=== PATIENT | female | born 1935 | race Caucasian/White ===

== ENCOUNTER → 2016-04-10 | Outpatient (CLI) | payer MEDICARE ==
[~2016-04-10] MED LIST: ALN70T; AMLO10TA2 PO; AMLO10TA82; AMLO5TAB2 PO; APIX5TAB PO; ASP81CT; ASPI-983 PO; BENZ100C23 PO; DOCU100C37 PO; LOSA50TA36 PO; MECL-133; METO-270 PO; METO-274 PO; METO25TA; MNTL10T; MONT10TA24 PO; PANT40TA3 PO; RT-ALBUINH IH; SULF-222 PO; VLS80C PO
--- NOTE | 2016-04-10 13:13 | Diagnostic Imaging Report ---
PROCEDURE: US Thyroid. TECHNIQUE: Multiple real-time grayscale images were obtained of the thyroid in various projections. INDICATION: Thyroid nodule follow-up. FINDINGS: The right lobe of the thyroid measures 4.0 x 1.5 x 1.5 cm. Left lobe of the thyroid measures 5.0 x 2.2 x 2 cm. The right lobe of the thyroid has a heterogeneous echogenicity but no masses or nodules. The left lobe of the thyroid contains multiple nodules. The largest is in the medial portion that measures 10 x 8 x 10 mm. This is avascular centrally but does have some peripheral vascularity. There are no microcalcifications. This is not significantly changed from the comparison exam of 08/21/2009. IMPRESSION: Multinodular goiter manifested in the left lobe of the thyroid. There are no individually suspicious nodules. No significant changes compared to 08/21/2009. Dictated by: Dictated on workstation # [id number]
== END ==
LOC: RAD 10:08
PROVIDERS: ATTEND Internal Medicine
DX: E04.2 Nontoxic multinodular goiter (principal)
CPT/HCPCS: 76536

== ENCOUNTER → 2016-06-25 | Outpatient (CLI) | payer MEDICARE ==
--- NOTE | 2016-06-25 13:47 | Diagnostic Imaging Report ---
PROCEDURE: CT head and CT cervical spine without contrast. TECHNIQUE: Multiple contiguous axial images were obtained through the brain and cervical spine without the use of intravenous contrast. Sagittal and coronal reformations through the cervical spine were then performed. INDICATION: Fall. FINDINGS: CT HEAD: There is no intracranial hemorrhage, edema or mass effect. The brain parenchyma and franklin-white matter differentiation is preserved. There is no hydrocephalus. No extra-axial fluid collection. The calvarium, the visualized portions of the paranasal sinuses and orbits appear grossly unremarkable. CT CERVICAL SPINE: There is minimal anterior translation of C7 over T1. The vertebral body heights are preserved. The disc heights demonstrate moderate loss at C5/6 and significant height loss at C6/7 levels. There is also moderate height loss at C7/T1. No widening of the predental space. There is satisfactory alignment of the lateral masses of C1 and C2. There is hypodense linear artifact appearing to be from dental fillings projecting over the C2 vertebral body. No evidence of fracture is seen. There are small posterior osteophytes at C3/4, C5/6 and C6/7 levels. Alignment of the facet joints appears satisfactory. IMPRESSION: CT HEAD: No acute process. CT CERVICAL SPINE: Prominent degenerative changes. Mild anterior translation of C7 over T1 is also likely degenerative. No fracture seen. Dictated by: Dictated on workstation # [id number]
== END ==
LOC: RAD 12:05
PROVIDERS: ATTEND Nurse Practitioner
DX: S09.90XA Unspecified injury of head, initial encounter (principal); M47.812 Spondylosis without myelopathy or radiculopathy, cervical region; W19.XXXA Unspecified fall, initial encounter; Y92.009 Unspecified place in unspecified non-institutional (private) residence as the place of occurrence of the external cause; Y99.8 Other external cause status
CPT/HCPCS: 70450; 72125

== ENCOUNTER 2016-10-23 18:50 | Inpatient (IN) | payer MEDICARE ==
[~2016-10-23] VITALS: Ht 157.5 cm; Wt 77.7 kg
[~2016-10-23 18:50] MED LIST changes: -ACET-2267 PO; -APIX2.5T PO; -BENZ-36 PO; +BENZ100C23 PO; -CALC-78 PO; -CHOL10007 PO; -CYAN10006 PO; -FURO40TA4 PO; +METO-270 PO; +METO-274 PO; -METO-387 PO; -METO-395 PO; -MICO90PO TOP; -MULT-35 PO; -NAPR220T66 PO; -POTA10TA6 PO; -POTA99TA21 PO
[2016-10-23 19:31] LABS: BASOPHILS % (AUTO) 1 % (0-10); EOSINOPHILS # (AUTO) 0.3 10^3/uL (0.0-0.3); EOSINOPHILS % (AUTO) 4 % (0-10); LYMPHOCYTES % (AUTO) 25 % (12-44); MEAN CORPUSCULAR HEMOGLOBIN 25 PG (25-34); MEAN CORPUSCULAR HGB CONC 29 G/DL (32-36); MEAN CORPUSCULAR VOLUME 86 FL (80-99); MEAN PLATELET VOLUME 9.8 FL (7.4-10.4); MONOCYTES # (AUTO) 0.8 X 10^3 (0.0-1.0); MONOCYTES % (AUTO) 10 % (0-12); NEUTROPHILS # (AUTO) 4.9 X 10^3 (1.8-7.8); NEUTROPHILS % (AUTO) 61 % (42-75); PLATELET COUNT 388 10^3/uL (130-400); RED BLOOD COUNT 2.48 10^6/uL (4.35-5.85); RED CELL DISTRIBUTION WIDTH 14.8 % (10.0-14.5)
[2016-10-23 19:45] LABS: INR 2.3 (0.8-1.4); PROTHROMBIN TIME PATIENT 25.5 SEC (12.2-14.7)
--- NOTE | 2016-10-23 20:20 | Diagnostic Imaging Report ---
INDICATION: Dyspnea and weakness 2009 hrs. FINDINGS: Heart size and pulmonary vascularity are within normal limits, and the lungs are clear, bilaterally. There is advanced degenerative change in the right shoulder joint. IMPRESSION: Unremarkable chest. Dictated by: Dictated on workstation # [id number]
[2016-10-23 20:21] VITALS: BP 154/61
--- NOTE | 2016-10-23 20:28 | ED General ---
General Chief Complaint: General Problems/Pain Stated Complaint: HEART PROBLEMS Nursing Triage Note: patient reports progressive SOA and weakness, patient reports being evaluated by emergency technician yesterday and having a holter monitor and labs done, patient reports was called today and told to present to the emergency department. patient denies n/v/d. patient was also told to quit taking blood thinner Nursing Sepsis Screen: No Definite Risk Source of Information: Patient, Old Records Exam Limitations: No Limitations History of Present Illness Time Seen by Provider: 19:08 Initial Comments This pleasant 81-year-old woman presents to the emergency room at the direction of Dr. Gallegos's office because of a hemoglobin of 6. Patient has been feeling very fatigued and mildly short of air for about 2 weeks. She is on Eliquis but she has been unaware of any bleeding. She is anticoagulated because of atrial fibrillation. She was seen in Dr. Gallegos's office on Wednesday. Labs were drawn today and a Holter monitor applied. Allergies and Home Medications Allergies Coded Allergies: Penicillins (Unverified Allergy, Mild, 10/26/08) iodine (Unverified Allergy, Mild, 10/26/08) sulfamethoxazole (Verified Allergy, Unknown, 12/05/14) trimethoprim (Verified Allergy, Unknown, 12/05/14) Home Medications Albuterol Sulfate 8.5 Gm Hfa.aer.ad, 2 PUFF IH Q6H PRN for SHORTNESS OF BREATH, (Reported) Amlodipine Besylate 5 Mg Tablet, 5 MG PO DAILY for 30 Days Prescribed by: RENA CULVER on 12/11/141537 Apixaban 5 Mg Tablet, 5 MG PO BID for 30 Days, Ref 3 Prescribed by: RENA CULVER on 12/11/141537 Aspirin 81 Mg Tablet., 81 MG PO DAILY, (Reported) Docusate Sodium 100 Mg Capsule, 100 MG PO BID, #10 Prescribed by: RENA CULVER on 12/11/14 1538 Losartan Potassium 50 Mg Tablet, 50 MG PO DAILY, (Reported) Metoprolol Succinate 100 Mg Tab.er.24h, 100 MG PO BID for 30 Days, Ref 3 Prescribed by: RENA CULVER on 12/11/141537 Montelukast Sodium 10 Mg Tablet, 10 MG PO HS, (Reported) Pantoprazole Sodium 40 Mg Tablet., 40 MG PO BIDAC for 30 Days Prescribed by: RENA CULVER on 12/11/14 1538 Constitutional: see HPI, weakness EENTM: no symptoms reported Respiratory: see HPI Cardiovascular: see HPI Gastrointestinal: no symptoms reported Genitourinary: no symptoms reported : No Musculoskeletal: no symptoms reported Skin: no symptoms reported Psychiatric/Neurological: No Symptoms Reported Hematologic/Lymphatic: See HPI Immunological/Allergic: no symptoms reported Past Tgwwjpn-Feiulx-Bepbkf Hx Patient Social History Alcohol Use: Denies Use Recreational Drug Use: No Smoking Status: Never a Smoker Recent Foreign Travel: No Contact w/Someone Who Travel: No Recent Infectious Disease Expo: No Immunizations Up To Date Date of Pneumonia Vaccine: Dec 06, 2012 Surgeries HX Surgeries: Yes Surgeries: Eye Surgery, Gallbladder, Orthopedic Respiratory Hx Respiratory Disorders: Yes Respiratory Disorders: Asthma Cardiovascular Hx Cardiac Disorders: Yes Cardiac Disorders: Atrial Fibrillation, Hypertension Neurological Hx Neurological Disorders: No Reproductive System Hx Reproductive Disorders: No Sexually Transmitted Disease: No Genitourinary Hx Genitourinary Disorders: No Gastrointestinal Hx Gastrointestinal Disorders: Yes (diverticulitis) Gastrointestinal Disorders: Diverticulosis Musculoskeletal Hx Musculoskeletal Disorders: Yes (arthritis/lymphedema both legs) Musculoskeletal Disorders: Arthritis Endocrine Hx Endocrine Disorders: No HEENT HX ENT Disorders: Yes HEENT Disorders: Cataract Cancer Hx Cancer: No Psychosocial Hx Psychiatric Problems: No Integumentary HX Skin/Integumentary Disorder: No Blood Transfusions Hx Blood Disorders: No Physical Exam Vital Signs Vital Sign - Last 12Hours 10/23/16 10/23/16 19:03 20:21 Temp 98.2 Pulse 69 Resp 18 B/P (MAP) 166/78 Pulse Ox 96 O2 Delivery Room Air Capillary Refill : Less Than 3 Seconds General Appearance: No Apparent Distress, WD/WN HEENT: PERRL/EOMI, Normal ENT Inspection Respiratory: Lungs Clear, Normal Breath Sounds, No Accessory Muscle Use, No Respiratory Distress Cardiovascular: Regular Rate, Rhythm, No Edema Gastrointestinal: Normal Bowel Sounds, Soft, Tenderness (left lower quadrant) Rectal: Normal Exam, Normal Rectal Tone, Heme Negative Stool Extremity: Normal Inspection Neurologic/Psychiatric: Alert, Oriented x3, No Motor/Sensory Deficits, Normal Mood/Affect, wave guide assembler II-XII Norm as Tested Skin: Normal Color, Warm/Dry Progress/Results/Core Measures Results/Orders Lab Results Laboratory Tests Test 10/23/16 19:20 10/23/16 20:35 10/24/16 05:03 Range/Units White Blood Count 8.0 8.3 4.3-11.0 10^3/uL Red Blood Count 2.48 L 2.99 L 4.35-5.85 10^6/uL Hemoglobin 6.1 *L 8.1 #L 11.5-16.0 G/DL Hematocrit 21 L 26 L 35-52 % Mean Corpuscular Volume 86 85 80-99 FL Mean Corpuscular Hemoglobin 25 27 25-34 PG Mean Corpuscular Hemoglobin Concent 29 L 32 32-36 G/DL Red Cell Distribution Width 14.8 H 14.3 10.0-14.5 % Platelet Count 388 293 130-400 10^3/uL Mean Platelet Volume 9.8 9.9 7.4-10.4 FL Neutrophils (%) (Auto) 61 65 42-75 % Lymphocytes (%) (Auto) 25 20 12-44 % Monocytes (%) (Auto) 10 12 0-12 % Eosinophils (%) (Auto) 4 3 0-10 % Basophils (%) (Auto) 1 0 0-10 % Neutrophils # (Auto) 4.9 5.4 1.8-7.8 X 10^3 Lymphocytes # (Auto) 2.0 1.7 1.0-4.0 X 10^3 Monocytes # (Auto) 0.8 1.0 0.0-1.0 X 10^3 Eosinophils # (Auto) 0.3 0.2 0.0-0.3 10^3/uL Basophils # (Auto) 0.0 0.0 0.0-0.1 10^3/uL Prothrombin Time 25.5 H 12.2-14.7 SEC INR Comment 2.3 H 0.8-1.4 Activated Partial Thromboplast Time 30 24-35 SEC Troponin I < 0.30 <0.30 NG/ML B-Type Natriuretic Peptide 654.2 H <100.0 PG/ML Urine Color YELLOW Urine Clarity CLEAR Urine pH 7 5-9 Urine Specific [place] 1.010 L 1.016-1.022 Urine Protein NEGATIVE NEGATIVE Urine Glucose (UA) NEGATIVE NEGATIVE Urine Ketones NEGATIVE NEGATIVE Urine Nitrite NEGATIVE NEGATIVE Urine Bilirubin NEGATIVE NEGATIVE Urine Urobilinogen NORMAL NORMAL MG/DL Urine Leukocyte Esterase 3+ H NEGATIVE Urine RBC (Auto) NEGATIVE NEGATIVE Urine RBC NONE /HPF Urine WBC 2-5 /HPF Urine Squamous Epithelial Cells NONE /HPF Urine Crystals NONE /LPF Urine Bacteria NONE /HPF Urine Casts NONE /LPF Urine Mucus NEGATIVE /LPF Urine Culture Indicated NO My Orders Orders - KELLY LEVINE MD BNP (10/23/16 19:11) Cbc With Automated Diff (10/23/16 19:11) Protime With Inr (10/23/16 19:11) Partial Thromboplastin Time (10/23/16 19:11) Troponin I (10/23/16 19:11) Ua Culture If Indicated (10/23/16 19:11) Saline Lock/Iv-Start (10/23/16 19:11) Ekg Tracing (10/23/16 19:11) Monitor-Rhythm Ecg Trace Only (10/23/16 19:11) Chest Pa/Lat (2 View) (10/23/16 19:11) Fecal Occult Bedside (10/23/16 19:11) Red Cells Leukocytes Reduced (10/23/16 19:15) Type And Screen (10/23/16 19:15) Ct Abdomen/Pelvis Wo (10/23/16 20:47) Ns Iv 500 Ml (Sodium Chloride 0.9%) (10/23/16 21:22) Medications Given in ED Current Medications Medications Dose Ordered Sig/Marleen Route Start Time Stop Time Status Last Admin Dose Admin Sodium Chloride 500 ml @ [facility]-MED ONCE .ROUTE 10/23/16 21:22 10/23/16 21:29 DC 10/23/16 21:42 0 MLS/HR Vital Signs/I&O Vital Sign - Last 12Hours 10/23/16 10/23/16 10/23/16 10/23/16 19:03 20:21 21:38 22:00 Temp 98.2 98.2 98.4 Pulse 69 64 62 61 Resp 18 22 10 12 B/P (MAP) 166/78 154/61 161/64 174/65 Pulse Ox 96 99 94 95 O2 Delivery Room Air Room Air 10/23/16 10/23/16 10/23/16 10/23/16 22:32 22:59 23:31 23:35 Temp 97.5 98.0 Pulse 63 63 64 Resp 24 17 18 B/P (MAP) 173/72 154/98 Pulse Ox 95 95 99 O2 Delivery Room Air 10/24/16 10/24/16 01:00 05:05 Temp 98.1 Pulse 77 69 Resp 20 B/P (MAP) 148/67 Pulse Ox 98 O2 Delivery Room Air Blood Pressure Mean: 92 Progress Note : Progress Note Labs were repeated. Transfusion was initiated with 2 units of packed red blood cells. Lasix was ordered to be given after the transfusions. 2 units of blood are being held on reserve. Patient did complain of left lower quadrant pain after initial evaluation. She was concerned that diverticulitis was returning. CT scan was performed without contrast due to iodine allergy. No acute abnormalities were found. Fecal Hemoccult was negative. ECG Initial ECG Impression Date: Oct 23, 2016 Initial ECG Impression Time: 19:29 Initial ECG Rate: 61 Initial ECG Rhythm: Normal Sinus Initial ECG Intervals: Normal Initial ECG Impression: Normal Comment Normal sinus rhythm with no ST elevation or depression. Left ventricular hypertrophy. No abnormal intervals. Diagnostic Imaging Diagonstic Imaging: Xray Plain Films/CT/US/NM/MRI: chest Comments Chest x-ray viewed by me and report reviewed. See report below: NAME: SRUTHI SYKES MED REC#: [id number] PT STATUS: REG ER : 1935 PHYSICIAN: EKLLY LEVINE MD ADMIT DATE: 10/23/16/ER Draft Date of Exam:10/23/16 CHEST PA/LAT (2 VIEW) INDICATION: Dyspnea and weakness 2009 hrs. FINDINGS: Heart size and pulmonary vascularity are within normal limits, and the lungs are clear, bilaterally. There is advanced degenerative change in the right shoulder joint. IMPRESSION: Unremarkable chest. Dictated on workstation # [id number] Dict: 10/23/162017 Trans: 10/23/[address] [place] [id number] Interpreted by: ELENI ALMANZA MD Departure Communication Time/Spoke to Admitting Phy: 20:[address] Mitchell Time/Spoke to Consulting Physi: 22:00 Communication/Consulting Dr. Gallegos Impression Impression: Primary Impression: Severe anemia Additional Impressions: Dyspnea Qualified Codes: R06.00 - Dyspnea, unspecified Fatigue Qualified Codes: R53.83 - Other fatigue Left lower quadrant pain Disposition: ADMITTED INPATIENT Condition: Improved Admissions Decision to Admit Reason: Admit from ER (General) Decision to Admit/Date: Oct 23, 2016 Time/Decision to Admit Time: 19:10 Departure-Patient Inst. Referrals: YORDAN RODRIGUEZ MD (PCP/Family) Primary Care Physician KELLY LEVINE MD Oct 23, 2016 20:28
[2016-10-23 20:57] LABS: BILIRUBIN,URINE NEGATIVE (NEGATIVE); KETONES,URINE NEGATIVE (NEGATIVE); LEUKOCYTE ESTERASE ,URINE 3+ (NEGATIVE); NITRITE,URINE NEGATIVE (NEGATIVE); PH,URINE 7 (5-9); PROTEIN,URINE NEGATIVE (NEGATIVE); UROBILINOGEN,URINE NORMAL (NORMAL)
[2016-10-23] MEDS ORDERED: NS IV 500 ML 500 ML ONE (21:22)
--- NOTE | 2016-10-23 21:35 | Diagnostic Imaging Report ---
PROCEDURE: CT abdomen and pelvis without contrast. TECHNIQUE: Multiple contiguous axial images were obtained through the abdomen and pelvis without the use of intravenous contrast. INDICATION: Severe anemia and weakness There is moderate hiatal hernia. Note is made of coronary artery calcification. Unenhanced images of the liver and spleen reveal no focal abnormality. Gallbladder surgically absent. There is no evidence of pancreatic or adrenal gland lesion. Dense calcification in the lower pole of the left kidney may be vascular in nature. There is no evidence of hydronephrosis or renal mass identified. There is also no evidence of ureteric stone or dilatation. Numerous diverticula are seen throughout the colon, however, there is no evidence of pericolonic edema or inflammation. Very small umbilical herniation of fat is noted. There is moderate lumbar spondylosis. IMPRESSION: No CT evidence of acute abdominal or pelvic abnormality. In particular, there is no evidence of unexpected fluid collection or hemorrhage. Dictated by: Dictated on workstation # [id number]
[2016-10-23 21:38] VITALS: BP 161/64
[2016-10-23 22:00] VITALS: BP 174/65
[2016-10-23 22:32] VITALS: BP 173/72
--- OUTSIDE RECORDS SUMMARY | 2016-10-23 22:33 | XMS REPORT ---
Author JOSELITO Gallegos [facility] eClinicalWorks Address Unknown Phone Unavailable Care Team Providers Care Vice President Of Product Marketing Name Role Phone JOSELITO WAKEFIELD CP Unavailable Allergies No Known Allergies Problems Problem Type Condition ICD-9 Code Onset Dates Condition Status Assessment Encounter for PPD test V74.1 Active Medications No Known Medications Procedures Procedure Coding System Code Date TB INTRADERMAL TEST CPT-4 18508 Nov 13, 2014 Results No Known Results Summary Purpose eClinicalWorks Submission
--- OUTSIDE RECORDS SUMMARY | 2016-10-23 22:33 | XMS REPORT ---
Author Author RAVI BROWER Organization e[employer] Address Unknown Phone Unavailable Care Team Providers Care Bicycle Designer Name Role Phone RAVI BROWER CP Unavailable Allergies, Adverse Reactions, Alerts Substance Reaction Event Type Penicillin V Potassium Info Not Available Drug Allergy Iodine Info Not Available Drug Allergy Problems Problem Type Condition ICD-9 Code Onset Dates Condition Status Assessment Physical exam V70.9 Active Medications Medication Code System Code Instructions Start Date End Date Status Dosage Singulair [facility] [address]-07 10 MG Orally Once a day 1 tablet in the evening Baby Aspirin ND 0 not defined Amlodipine Besylate [facility] [address]-45 10 MG Orally Once a day 1 tablet Diovan [facility] [address]-69 80 MG Orally Once a day 1 tablet Metoprolol-HCTZ ER [facility] [address]-67 25-12.5 MG Orally Once a day 1 tablet Meclizine HCl [facility] [address]-00 25 MG Orally PRN 1 tablet as needed Procedures Procedure Coding System Code Date Office Visit, New Pt., Level 2 CPT-4 64434 Nov 08, 2014 DRUG SCREEN NON TLC DEVICES CPT-4 63732 Nov 08, 2014 Vital Signs Date/Time: Nov 08, 2014 Temperature 98.6 F Weight 197.7 lbs Height 61 in BMI 37.35 Index Blood Pressure Diastolic 70 mmHg Blood Pressure Systolic 126 mmHg Cardiac Monitoring Heart Rate 86 bpm Results No Known Results Summary Purpose eClinicalWorks Submission
--- OUTSIDE RECORDS SUMMARY | 2016-10-23 22:33 | XMS REPORT ---
Author Author RAVI BROWER Organization e[employer] Address Unknown Phone Unavailable Care Team Providers Care Blue Crabber Name Role Phone RAVI BROWER CP Unavailable Allergies No Known Allergies Problems No Known Problems Medications No Known Medications Results No Known Results Summary Purpose eClinicalWorks Submission
[2016-10-23 22:59] VITALS: BP 154/98
[2016-10-23 23:35] VITALS: BP 169/68
[2016-10-23] MEDS ORDERED: FUROSEMIDE 40 MG/4 ML INJ (LASIX) IV PRN (23:45)
[2016-10-24 05:05] VITALS: BP 148/67
[2016-10-24 05:23] LABS: BASOPHILS % (AUTO) 0 % (0-10); EOSINOPHILS # (AUTO) 0.2 10^3/uL (0.0-0.3); EOSINOPHILS % (AUTO) 3 % (0-10); LYMPHOCYTES # (AUTO) 1.7 X 10^3 (1.0-4.0); LYMPHOCYTES % (AUTO) 20 % (12-44); MEAN CORPUSCULAR HEMOGLOBIN 27 PG (25-34); MEAN CORPUSCULAR HGB CONC 32 G/DL (32-36); MEAN CORPUSCULAR VOLUME 85 FL (80-99); MEAN PLATELET VOLUME 9.9 FL (7.4-10.4); MONOCYTES % (AUTO) 12 % (0-12); NEUTROPHILS # (AUTO) 5.4 X 10^3 (1.8-7.8); NEUTROPHILS % (AUTO) 65 % (42-75); PLATELET COUNT 293 10^3/uL (130-400); RED BLOOD COUNT 2.99 10^6/uL (4.35-5.85); RED CELL DISTRIBUTION WIDTH 14.3 % (10.0-14.5); WHITE BLOOD COUNT 8.3 10^3/uL (4.3-11.0)
[2016-10-24 05:33] LABS: INR 1.2 (0.8-1.4)
[2016-10-24 05:52] LABS: CALCIUM 8.6 MG/DL (8.5-10.1); CREATININE SERUM 1.1 MG/DL (0.60-1.30); POTASSIUM 3.9 MMOL/L (3.6-5.0)
[2016-10-24 08:00] VITALS: BP 134/65
[2016-10-24] MEDS ORDERED: meTOprolol SUCCINATE 100 MG (TOPROL XL) TAB PO SCH (09:00)
[2016-10-24] MEDS ORDERED: amLODIPine 5 MG (NORVASC) TAB PO SCH (09:00)
[2016-10-24] MEDS ORDERED: LOSARTAN 50 MG (COZAAR) TAB PO SCH (09:00)
--- NOTE | 2016-10-24 09:03 | History & Physical-Hospitalist ---
HPI History of Present Illness: HPI/Chief Complaint this is an 81-year-old white female who has noted she's been having more shortness of breath for the last 2 weeks. She had presented to Dr. Dsouza would set her up for further cardiac testing and blood work. It was found that her hemoglobin was 6 and she was brought to the emergency room for further evaluation. The patient denies having any black tarry stools or any recent evidence of blood loss. She had her blood work checked about [address] Max's office and set her hemoglobin was normal at that time. She did have an episode where she had bright red blood per rectum about 6 months ago but has not had any other symptoms since then. She has had a recent upper endoscopy and colonoscopy or at least within the last 5 years. She has a history of diverticulitis in the past but CT abdomen pelvis shows no evidence of inflammation or abnormality at this time. The patient has not been on any new medications nor has she noted any dark urine. After 2 units of blood overnight she is feeling much better. Source: patient Exam Limitations: no limitations Date Seen 10/24/16 Time Seen by Provider: 08:30 Attending Physician Brooklyn Mitchell MD PCP Eddy Max MD Referring Physician Date of Admission Oct 23, 2016 at 22:00 Home Medications & Allergies Home Medications Reviewed patient Home Medication Reconciliation Form Allergies Allergies Coded Allergies Penicillins (Unverified Allergy, Mild, 10/26/08) iodine (Unverified Allergy, Mild, 10/26/08) sulfamethoxazole (Verified Allergy, Unknown, 12/05/14) trimethoprim (Verified Allergy, Unknown, 12/05/14) Past Mtinkij-Nmlhiq-Cvweyh Hx Patient Social History Marrital Status: Employed/Student: employed Alcohol Use: Denies Use Recreational Drug Use: No Smoking Status: Never a Smoker Physical Abuse Screen: No Sexual Abuse: No Recent Foreign Travel: No Contact w/other who traveled: No Recent Hopitalizations: No Recent Infectious Disease Expo: No Immunizations Up To Date Date of Pneumonia Vaccine: Dec 06, 2012 Seasonal Allergies Seasonal Allergies: Yes Surgeries HX Surgeries: Yes Surgeries: Eye Surgery, Gallbladder, Orthopedic Respiratory Hx Respiratory Disorders: Yes Respiratory Disorders: Chronic Bronchitis Cardiovascular Hx Cardiovascular Disorders: Yes Cardiac Disorders: Atrial Fibrillation, Hypertension Neurological Hx Neurological Disorders: No Reproductive System : No Hx Reproductive Disorders: No Sexually Transmitted Disease: No HIV/AIDS: No Genitourinary Hx Genitourinary Disorders: No Gastrointestinal Hx Gastrointestinal Disorders: Yes (diverticulitis) Gastrointestinal Disorders: Diverticulosis Musculoskeletal Hx Musculoskeletal Disorders: Yes (arthritis/lymphedema both legs) Musculoskeletal Disorders: Arthritis Endocrine Hx Endocrine Disorders: No HEENT HX ENT Disorders: Yes HEENT Disorders: Cataract Loss of Vision: Denies Hearing Impairment: Denies Cancer Hx Cancer: No Psychosocial Hx Psychiatric Problems: No Integumentary HX Skin/Integumentary Disorder: No Blood Transfusions Hx Blood Disorders: No Adverse Reaction to a Blood Tr: No Family Medical History Family Hx: Cancer around heart 19 FATHER Cardiovascular disease 19 MOTHER Congenital heart disease 19 MOTHER Hypertension 19 MOTHER Review of Systems Constitutional: weakness EENTM: no symptoms reported Respiratory: dyspnea on exertion Cardiovascular: no symptoms reported Gastrointestinal: no symptoms reported Genitourinary: no symptoms reported Musculoskeletal: no symptoms reported Skin: no symptoms reported Psychiatric/Neurological: Weakness Physical Exam Physical Exam Vital Signs Vital Sign - Last 12Hours 10/23/16 10/23/16 19:03 20:21 Temp 98.2 Pulse 69 Resp 18 B/P (MAP) 166/78 Pulse Ox 96 O2 Delivery Room Air Capillary Refill : Less Than 3 SecondsLess Than 3 Seconds General Appearance: No Apparent Distress, Other (pale) HEENT: Pale Conjunctivae (R) Neck: Non Tender Respiratory: Lungs Clear, Normal Breath Sounds, No Accessory Muscle Use, No Respiratory Distress Cardiovascular: Systolic Murmur, Irregularly Irregular Gastrointestinal: Normal Bowel Sounds, Non Tender, Soft Rectal: Deferred, Other (Hemoccult negative per Dr. Diaz) Genital/Rectal: Heme Negative Stool Back: Normal Inspection, No Vertebral Tenderness Extremity: No Calf Tenderness, Slow Capillary Refill Neurologic/Psychiatric: Alert, Oriented x3, No Motor/Sensory Deficits, Normal Mood/Affect Results Results/Procedures Lab Laboratory Tests 10/23/16 19:20 10/24/16 05:03 Assessment/Plan Admission Diagnosis 1. Severe anemia differential includes loss of blood decreased production of blood or hemolysis of blood. We'll check reticulocyte count LDH and further anemia analyzer 2. chronic atrial fibrillation on Eliquis which we'll hold for now. 3. shortness of breath improved now with a hemoglobin of 8.1 We'll continue to monitor her hemoglobin for another 24 hours and evaluate for blood loss. Clinical Quality Measures DVT/VTE Risk/Contraindication: Risk Factor Score Per Nursin RFS Level Per Nursing on Admit: 4+=Very High Contraindications-Pharm: Other *list below* Other: severe anemia BROOKLYN MITCHELL MD Oct 24, 2016 09:03
[2016-10-24] MEDS: KCL 20 MEQ TAB (K-DUR) PO SCH (09:07)
--- NOTE | 2016-10-24 14:55 | Consultation-Cardiology ---
HPI-Cardiology Cardiology Consultation: Date of Consultation 10/24/16 Time Seen by Provider: 15:30 Date of Admission 10/23/16 Attending Physician Brooklyn Mitchell MD Admitting Physician Eddy Max MD Consulting Physician EMILY HILTON MD, MA, FACP, FACC, FSCAI, CCDS HPI: Chief Complaint: Fatigue and shortness of breath HPI: 81 yo lady seen at our office about a week ago for symptoms of 2-3 weeks of increasing fatigue and tiredness and shortness of breath. W/u indicated marked anemia of new onset. Sent to ER. [place] [facility] [place] Has received transfusions and feels improved. Denies cp or palp or syncope Review of Systems-Cardiology Review of Systems Constitutional: As described under HPI Eyes: No vision change Ears/Nose/Throat: No ear discharge, No nasal drainage, No recent hearing loss Respiratory: As described under HPI Cardiovascular: As described under HPI Gastrointestinal: No constipation, No diarrhea, No difficulty swallowing Genitourinary: No dysuria, No hematuria : No Musculoskeletal: back pain (chronic) Skin: No rash, No ulcerations Psychiatric/Neurological: No seizure, No focal weakness, No syncope Hematologic: No bleeding abnormalities [id number] Hx Patient Social History Marrital Status: Employed/Student: employed Alcohol Use: Denies Use Recreational Drug Use: No Smoking Status: Never a Smoker Recent Foreign Travel: No Recent Infectious Disease Expo: No Hospitalization with Isolation: Denies Physical Abuse Screen: No Sexual Abuse: No Immunizations Up To Date Date of Pneumonia Vaccine: Dec 06, 2012 Past Medical History PMH As described under Assessment. Family Medical History Family History: Cancer around heart 19 FATHER Cardiovascular disease 19 MOTHER Congenital heart disease 19 MOTHER Hypertension 19 MOTHER Allergies and Home Medications Allergies Coded Allergies: Penicillins (Unverified Allergy, Mild, 10/26/08) iodine (Unverified Allergy, Mild, 10/26/08) sulfamethoxazole (Verified Allergy, Unknown, 12/05/14) trimethoprim (Verified Allergy, Unknown, 12/05/14) Home Medications Albuterol Sulfate 8.5 Gm Hfa.aer.ad, 2 PUFF IH Q6H PRN for SHORTNESS OF BREATH, (Reported) Amlodipine Besylate 5 Mg Tablet, 5 MG PO DAILY for 30 Days Prescribed by: RENA CULVER on 12/11/141537 Apixaban 5 Mg Tablet, 5 MG PO BID for 30 Days, Ref 3 Prescribed by: RENA CULVER on 12/11/141537 Aspirin 81 Mg Tablet., 81 MG PO DAILY, (Reported) Docusate Sodium 100 Mg Capsule, 100 MG PO BID, #10 Prescribed by: RENA CULVER on 12/11/141537 Losartan Potassium 50 Mg Tablet, 50 MG PO DAILY, (Reported) Metoprolol Succinate 100 Mg Tab.er.24h, 100 MG PO BID for 30 Days, Ref 3 Prescribed by: RENA CULVER on 12/11/141537 Montelukast Sodium 10 Mg Tablet, 10 MG PO HS, (Reported) Pantoprazole Sodium 40 Mg Tablet., 40 MG PO BIDAC for 30 Days Prescribed by: RENA CULVER on 12/11/141537 Physical Exam-Cardiology Physical Exam Vital Signs/I&O Vital Sign - Last 12Hours 10/24/16 10/24/16 10/24/16 10/24/16 05:05 08:00 09:00 15:37 Temp 98.1 97.8 98.2 Pulse 69 75 61 Resp 20 20 20 B/P (MAP) 148/67 134/65 119/66 Pulse Ox 98 98 99 O2 Delivery Room Air Room Air Room Air Room Air Intake and Output 10/25/16 00:00 Intake Total 1090 ml Output Total 1400 ml Balance -310 ml Capillary Refill : Less Than 3 SecondsLess Than 3 Seconds Data Review Labs Laboratory Tests 10/23/16 19:20: White Blood Count 8.0, Red Blood Count 2.48L, Hemoglobin 6.1*L, Hematocrit 21L, Mean Corpuscular Volume 86, Mean Corpuscular Hemoglobin 25, Mean Corpuscular Hemoglobin Concent 29L, Red Cell Distribution Width 14.8H, Platelet Count 388, Mean Platelet Volume 9.8, Neutrophils (%) (Auto) 61, Lymphocytes (%) (Auto) 25, Monocytes (%) (Auto) 10, Eosinophils (%) (Auto) 4, Basophils (%) (Auto) 1, Neutrophils # (Auto) 4.9, Lymphocytes # (Auto) 2.0, Monocytes # (Auto) 0.8, Eosinophils # (Auto) 0.3, Basophils # (Auto) 0.0, Prothrombin Time 25.5H, INR Comment 2.3H, Activated Partial Thromboplast Time 30, Troponin I < 0.30, B-Type Natriuretic Peptide 654.2H 10/23/16 20:35: Urine Color YELLOW, Urine Clarity CLEAR, Urine pH 7, Urine Specific [place] 1.010L, Urine Protein NEGATIVE, Urine Glucose (UA) NEGATIVE, Urine Ketones NEGATIVE, Urine Nitrite NEGATIVE, Urine Bilirubin NEGATIVE, Urine Urobilinogen NORMAL, Urine Leukocyte Esterase 3+H, Urine RBC (Auto) NEGATIVE, Urine RBC NONE , Urine WBC 2-5, Urine Squamous Epithelial Cells NONE, Urine Crystals NONE, Urine Bacteria NONE, Urine Casts NONE, Urine Mucus NEGATIVE, Urine Culture Indicated NO 10/24/16 05:03: White Blood Count 8.3, Red Blood Count 2.99L, Hemoglobin 8.1#L, Hematocrit 26L, Mean Corpuscular Volume 85, Mean Corpuscular Hemoglobin 27, Mean Corpuscular Hemoglobin Concent 32, Red Cell Distribution Width 14.3, Platelet Count 293, Mean Platelet Volume 9.9, Neutrophils (%) (Auto) 65, Lymphocytes (%) (Auto) 20, Monocytes (%) (Auto) 12, Eosinophils (%) (Auto) 3, Basophils (%) (Auto) 0, Neutrophils # (Auto) 5.4, Lymphocytes # (Auto) 1.7, Monocytes # (Auto) 1.0, Eosinophils # (Auto) 0.2, Basophils # (Auto) 0.0, Prothrombin Time 15.0H, INR Comment 1.2, Sodium Level 139, Potassium Level 3.9, Chloride Level 106, Carbon Dioxide Level 24, Anion Gap 9, Blood Urea Nitrogen 23H, Creatinine 1.10, Estimat Glomerular Filtration Rate 47, BUN/Creatinine Ratio 21, Glucose Level 102, Calcium Level 8.6, Lactate Dehydrogenase 195 A/P-Cardiology Assessment/Admission Diagnosis Profound anemia of undetermined etiology leading to new onset of fatique and loss of stamina and exertional shortness of breath PAF documented during hosp of early Dec 2014 Chronic apixaban stroke prophylaxis, currently being held because anemia is suspected to be due to GI blood loss Elevated BMI of approx 32 No evidence of ischemia or infarction on MPI of 12/11/14; LVEF was 74% Echo of 12/07/14 showed LVEF 55%, mod LAE, mild TR, PASP 35 mmHg Anaphylaxis to Bactrim and ac renal failure in early Dec 2014, managed by Dr Max Cough, managed by Dr Max H/o hypertension Discussion and Recomendations * We recommend a w/u to identify the source of bleeding * Hold anticoag/antiplatelets until the source of bleeding identified and treated * I spoke with her and answered questions Clinical Quality Measures DVT/VTE Risk/Contraindication: Risk Factor Score Per Nursin RFS Level Per Nursing on Admit: 4+=Very High Contraindications-Pharm: Other *list below* Other: severe anemia EMILY HILTON MD FACP FAC CCDS Oct 24, 2016 14:55
[2016-10-24 15:37] VITALS: BP 119/66
[2016-10-24] MEDS: PANTOPRAZOLE 40 MG (PROTONIX) TAB PO SCH (16:23)
[2016-10-24 20:08] VITALS: BP 126/66
[2016-10-24] MEDS: meTOproloL SUCCINATE 50 MG (TOPROL XL) TAB PO SCH (21:04)
[2016-10-24] MEDS: MONTELUKAST 10 MG (SINGULAIR) TAB PO SCH (21:04)
[2016-10-25] VITALS (17 sets, daily range): BP systolic 112–154; BP diastolic 55–79
[2016-10-25 05:23] LABS: MEAN PLATELET VOLUME 9.7 FL (7.4-10.4); RED BLOOD COUNT 3.04 10^6/uL (4.35-5.85); RED CELL DISTRIBUTION WIDTH 14.7 % (10.0-14.5); WHITE BLOOD COUNT 8.4 10^3/uL (4.3-11.0)
[2016-10-25 05:24] LABS: BASOPHILS % (AUTO) 0 % (0-10); EOSINOPHILS # (AUTO) 0.4 10^3/uL (0.0-0.3); EOSINOPHILS % (AUTO) 4 % (0-10); LYMPHOCYTES % (AUTO) 23 % (12-44); MEAN CORPUSCULAR HEMOGLOBIN 26 PG (25-34); MEAN CORPUSCULAR HGB CONC 31 G/DL (32-36); MEAN CORPUSCULAR VOLUME 86 FL (80-99); MEAN PLATELET VOLUME 9.9 FL (7.4-10.4); MONOCYTES # (AUTO) 0.9 X 10^3 (0.0-1.0); MONOCYTES % (AUTO) 11 % (0-12); NEUTROPHILS # (AUTO) 5.4 X 10^3 (1.8-7.8); NEUTROPHILS % (AUTO) 62 % (42-75); PLATELET COUNT 313 10^3/uL (130-400); RED BLOOD COUNT 3.05 10^6/uL (4.35-5.85); RED CELL DISTRIBUTION WIDTH 14.7 % (10.0-14.5); RETICULOCYTE % 2.34 % (0.50-2.40); WHITE BLOOD COUNT 8.7 10^3/uL (4.3-11.0)
[2016-10-25 05:39] LABS: BAND NEUTROPHILS 0 %; BASOPHILS % (MANUAL) 0 %; EOSINOPHILS % (MANUAL) 3 %; LYMPHOCYTES % (MANUAL) 15 %; NEUTROPHILS % (MANUAL) 69 %
[2016-10-25 05:40] LABS: ANISOCYTOSIS MODERATE; HYPOCHROMASIA MARKED; MICROCYTOSIS SLIGHT; POIKILOCYTOSIS SLIGHT; POLYCHROMASIA SLIGHT; TARGET CELLS SLIGHT; TEAR DROP CELLS SLIGHT
[2016-10-25] MEDS ORDERED: amLODIPine 5 MG (NORVASC) TAB ONE (05:46)
[2016-10-25] MEDS: PANTOPRAZOLE 40 MG (PROTONIX) TAB PO SCH ×2 (06:02→17:42)
[2016-10-25 06:09] LABS: CALCIUM 8.4 MG/DL (8.5-10.1); CREATININE SERUM 0.93 MG/DL (0.60-1.30); POTASSIUM 4.4 MMOL/L (3.6-5.0)
[2016-10-25] MEDS ORDERED: amLODIPine 5 MG (NORVASC) TAB PO PRN (09:00)
[2016-10-25] MEDS: KCL 20 MEQ TAB (K-DUR) PO SCH (09:02)
[2016-10-25] MEDS: meTOproloL SUCCINATE 50 MG (TOPROL XL) TAB PO SCH ×2 (09:02→20:44)
--- NOTE | 2016-10-25 10:55 | Progress Note-Hospitalist ---
Subjective HPI/CC On Admission Date Seen by Provider: Oct 25, 2016 Time Seen by Provider: 10:15 this is an 81-year-old white female who has noted she's been having more shortness of breath for the last 2 weeks. She had presented to Dr. Dsouza would set her up for further cardiac testing and blood work. It was found that her hemoglobin was 6 and she was brought to the emergency room for further evaluation. The patient denies having any black tarry stools or any recent evidence of blood loss. She had her blood work checked about [address] Max's office and set her hemoglobin was normal at that time. She did have an episode where she had bright red blood per rectum about 6 months ago but has not had any other symptoms since then. She has had a recent upper endoscopy and colonoscopy or at least within the last 5 years. She has a history of diverticulitis in the past but CT abdomen pelvis shows no evidence of inflammation or abnormality at this time. The patient has not been on any new medications nor has she noted any dark urine. After 2 units of blood overnight she is feeling much better. Subjective/Events-last exam patient complains of a cough this morning. She continues to be dyspneic on exertion but it's improved from admission. Hemoglobin is down to 7.9. Stool is Hemoccult positive. Review of Systems Pulmonary: Dyspnea, Cough Objective Exam Vital Signs Vital Sign - Last 12Hours 10/23/16 10/23/16 19:03 20:21 Temp 98.2 Pulse 69 Resp 18 B/P (MAP) 166/78 Pulse Ox 96 O2 Delivery Room Air Capillary Refill : Less Than 3 SecondsLess Than 3 Seconds General Appearance: No Apparent Distress, WD/WN HEENT: Pale Conjunctivae (R) Neck: Supple Respiratory: Chest Non Tender, Lungs Clear, Normal Breath Sounds, No Accessory Muscle Use, No Respiratory Distress Cardiovascular: No Edema, Systolic Murmur, Irregularly Irregular Gastrointestinal: Normal Bowel Sounds, Non Tender, Soft Rectal: Deferred Extremity: Non Tender, No Calf Tenderness Neurologic/Psychiatric: Alert, Oriented x3, No Motor/Sensory Deficits, Normal Mood/Affect Skin: Pallor Results/Procedures Lab Laboratory Tests 10/25/16 04:45 Assessment/Plan Assessment and Plan Assess & Plan/Chief Complaint 1. Severe anemia-status post transfusion with 2 units of blood. Now with Hemoccult positive stools. Off Eliquis. No evidence of hemolysis and patient has a good reticulocyte count. B12 folic acid and iron studies pending. Will add Carafate to Protonix. We'll transfuse with 2 more units of packed cells and consider discharge planning for tomorrow and follow up as an outpatient. 2. chronic atrial fibrillation on Eliquis which we'll hold for now. 3. shortness of breath improved now with a hemoglobin of 8.1 4. cough-we'll add SHERYL Dutta MD Oct 25, 2016 10:55
[2016-10-25] MEDS ORDERED: NS IV 500 ML 500 ML ONE (11:42)
[2016-10-25] MEDS: SUCRALFATE 1 GM (CARAFATE) TAB PO SCH ×3 (11:45→20:44)
--- NOTE | 2016-10-25 12:39 | Progress Note-Cardiology ---
Cardiology SOAP Progress Note Subjective: Still notes gen weakness. Shortness of breath better. No cp or palp or syncope Objective: I&O/Vital Signs Vital Sign - Last 12Hours 10/25/16 10/25/16 10/25/16 10/25/16 01:00 04:00 07:00 08:00 Temp 98.6 Pulse 60 64 70 Resp 18 B/P (MAP) 150/67 Pulse Ox 94 O2 Delivery Room Air Room Air 10/25/16 10/25/16 10/25/16 10/25/16 08:00 09:00 12:04 12:19 Temp 98.9 98.9 98.9 98.9 Pulse 71 71 65 63 Resp 20 18 B/P (MAP) 124/69 124/69 120/70 123/71 Pulse Ox 97 97 96 97 O2 Delivery Room Air Room Air Room Air Room Air Weight (Pounds): 171 Weight (Ounces): 6.0 Weight (Calculated Kilograms): 77.427811 Constitutional: AAO x 3, well-developed, well-nourished Respiratory: No accessory muscle use, lungs clear to percussion, lungs clear to auscultation Cardiovascular: regular rate-rhythm, S1 and S2, systolic murmur (faint TEDDY at cardiac base) Gastrointestional: No tender, soft, No guarding, No rebound, audible bowel sounds Extremities: No clubbing, No cyanosis, No significant edema Neurologic/Psychiatric: grossly intact, power is 5/5 both on sides Skin: No rash on exposed areas, No ulcerations on exposed areas Results/Procedures: Labs Laboratory Tests 10/25/16 04:45: White Blood Count 8.4, Red Blood Count 3.04L, Hemoglobin 7.9L, Hematocrit 26L, Mean Corpuscular Volume 86, Mean Corpuscular Hemoglobin 26, Mean Corpuscular Hemoglobin Concent 30L, Red Cell Distribution Width 14.7H, Platelet Count 300, Mean Platelet Volume 9.7, Sodium Level 136, Potassium Level 4.4, Chloride Level 106, Carbon Dioxide Level 20L, Anion Gap 10, Blood Urea Nitrogen 18, Creatinine 0.93, Estimat Glomerular Filtration Rate 58, BUN/Creatinine Ratio 19, Glucose Level 94, Calcium Level 8.4L 10/25/16 07:40: Stool Occult Blood Immunoassay NEGATIVE 10/25/16 08:13: Stool Occult Blood Immunoassay POSITIVEH Laboratory Tests 10/23/16 19:20 10/24/16 04:45 10/24/16 05:03 10/25/16 04:45 A/P: Assessment: Profound anemia, likely due to GI bleed (OB +ve stools), leading to new onset of fatique and loss of stamina and exertional shortness of breath PAF documented during hosp of early Dec 2014 Chronic apixaban stroke prophylaxis, currently being held because anemia is suspected to be due to GI blood loss Elevated BMI of approx 32 No evidence of ischemia or infarction on MPI of 12/11/14; LVEF was 74% Echo of 12/07/14 showed LVEF 55%, mod LAE, mild TR, PASP 35 mmHg Anaphylaxis to Bactrim and ac renal failure in early Dec 2014 Chronic cough, managed by Dr Max H/o hypertension Plan: * Agree with further blood transfusion * Recommend w/u for GI bleed and treatment of source. Hold anticoag/ antiplatelets until then EMILY HILTON MD FACP FAC CCDS Oct 25, 2016 12:38
[2016-10-25] MEDS: BENZONATATE 100 MG (TESSALON) CAPSULE PO SCH ×2 (13:15→20:44)
[2016-10-25] MEDS ORDERED: FUROSEMIDE 40 MG/4 ML INJ (LASIX) IVP NR (14:00)
[2016-10-25] MEDS: MONTELUKAST 10 MG (SINGULAIR) TAB PO SCH (20:44)
[2016-10-26 03:40] VITALS: BP 160/71
[2016-10-26] MEDS: SUCRALFATE 1 GM (CARAFATE) TAB PO SCH ×3 (05:42→16:28)
[2016-10-26] MEDS: PANTOPRAZOLE 40 MG (PROTONIX) TAB PO SCH ×2 (05:42→16:28)
[2016-10-26 07:03] LABS: MEAN PLATELET VOLUME 10.2 FL (7.4-10.4); RED BLOOD COUNT 3.82 10^6/uL (4.35-5.85)
[2016-10-26 07:09] LABS: CALCIUM 8.8 MG/DL (8.5-10.1); CREATININE SERUM 0.91 MG/DL (0.60-1.30); POTASSIUM 4.7 MMOL/L (3.6-5.0)
[2016-10-26 07:26] VITALS: BP 168/72
[2016-10-26 08:22] LABS: FOLIC ACID 19.8 ng/mL (1.5-24.0)
--- NOTE | 2016-10-26 08:55 | Progress Note-Cardiology ---
Cardiology SOAP Progress Note Subjective: Sitting up on the side of the bed. States she feels better. No c/o dyspnea, palpitations, CP, syncope or near syncope. No c/o n/v/d. Objective: I&O/Vital Signs Vital Sign - Last 12Hours 10/26/16 10/26/16 10/26/16 10/26/16 03:40 07:26 07:43 08:03 Temp 97.6 98.4 Pulse 69 66 64 Resp 18 22 B/P (MAP) 160/71 168/72 Pulse Ox 97 96 O2 Delivery Room Air Room Air Room Air 10/26/16 11:43 Temp 98.7 Pulse 73 Resp 20 B/P (MAP) 145/64 Pulse Ox 93 O2 Delivery Room Air Intake and Output 10/27/16 00:00 Intake Total 700 ml Output Total 1600 ml Balance -900 ml Weight (Pounds): 171 Weight (Ounces): 6.0 Weight (Calculated Kilograms): 77.995037 Constitutional: AAO x 3, well-developed, well-nourished Respiratory: No accessory muscle use, lungs clear to percussion, lungs clear to auscultation Cardiovascular: regular rate-rhythm, S1 and S2, systolic murmur (faint TEDDY at cardiac base) Gastrointestional: No tender, soft, No guarding, No rebound, audible bowel sounds Extremities: No clubbing, No cyanosis, No significant edema Neurologic/Psychiatric: grossly intact, power is 5/5 both on sides Skin: No rash on exposed areas, No ulcerations on exposed areas Results/Procedures: Labs Laboratory Tests 10/26/16 06:09: White Blood Count 9.0, Red Blood Count 3.82L, Hemoglobin 10.7#L, Hematocrit 33L , Mean Corpuscular Volume 87, Mean Corpuscular Hemoglobin 28, Mean Corpuscular Hemoglobin Concent 32, Red Cell Distribution Width 15.0H, Platelet Count 275, Mean Platelet Volume 10.2, Sodium Level 135, Potassium Level 4.7, Chloride Level 105, Carbon Dioxide Level 23, Anion Gap 7, Blood Urea Nitrogen 16, Creatinine 0.91, Estimat Glomerular Filtration Rate 59, BUN/Creatinine Ratio 18 , Glucose Level 93, Calcium Level 8.8 A/P: Assessment: Profound anemia, likely due to GI bleed (OB +ve stools), leading to new onset of fatique and loss of stamina and exertional shortness of breath. Symptoms resolved after anabaptism of H&H to near normal PAF documented during hosp of early Dec 2014 (currently SR) Chronic apixaban stroke prophylaxis, currently being held because anemia is suspected to be due to GI blood loss Elevated BMI of approx 32 No evidence of ischemia or infarction on MPI of 12/11/14; LVEF was 74% Echo of 12/07/14 showed LVEF 55%, mod LAE, mild TR, PASP 35 mmHg Anaphylaxis to Bactrim and ac renal failure in early Dec 2014 Chronic cough, managed by Dr Max H/o hypertension Plan: * H/H has improved with the transfusion of 4 units PRBC * Recommend w/u for GI bleed and treatment of source. Hold anticoag/ antiplatelets until then * We have discussed the above recommendations with her in detail * BP is elevated - restart ARB Physician Assessment Physician Assessment Lungs: good bilat air entry Cor: reg Ext: no c/c/e A&R * As documented in our note above that I updated (italics) and as noted below * We have advised f/u work up for and treatment of source of bleed. NOAC can be resumed for stroke prophylaxis after this issue is fully addressed * I spoke with her and answered questions * Outpatient f/u advised ARIS TRINIDAD Oct 26, 2016 08:55 EMILY HILTON MD FACP FAC CCDS Oct 26, 2016 14:26
[2016-10-26] MEDS ORDERED: LOSARTAN 25 MG (COZAAR) TAB PO SCH (09:00)
[2016-10-26] MEDS: meTOproloL SUCCINATE 50 MG (TOPROL XL) TAB PO SCH (09:12)
[2016-10-26] MEDS: KCL 20 MEQ TAB (K-DUR) PO SCH (09:12)
[2016-10-26] MEDS: BENZONATATE 100 MG (TESSALON) CAPSULE PO SCH ×2 (09:12→13:38)
[2016-10-26] MEDS ORDERED: amLODIPine 5 MG (NORVASC) TAB PO SCH (09:30)
[2016-10-26] MEDS ORDERED: CYAN10006 PO (09:46)
[2016-10-26] MEDS ORDERED: ACET-2267 PO (09:46)
[2016-10-26] MEDS ORDERED: APIX5TAB PO (09:46)
[2016-10-26] MEDS ORDERED: CHOL10007 PO (09:46)
[2016-10-26] MEDS ORDERED: METO-274 PO (09:46)
[2016-10-26] MEDS ORDERED: POTA99TA21 PO (09:46)
[2016-10-26] MEDS ORDERED: CALC-78 PO (09:46)
[2016-10-26] MEDS ORDERED: NAPR220T66 PO (09:46)
[2016-10-26] MEDS ORDERED: MULT-35 PO (09:46)
[2016-10-26 11:43] VITALS: BP 145/64
--- NOTE | 2016-10-26 15:37 | Progress Note-Hospitalist ---
Standard Progress Note Progress Notes/Assess & Plan Date Seen 10/26/16 Time Seen by Provider: 15:31 Diagnosis 1. Severe anemia differential includes loss of blood decreased production of blood or hemolysis of blood. We'll check reticulocyte count LDH and further anemia analyzer 2. chronic atrial fibrillation on Eliquis which we'll hold for now. 3. shortness of breath improved now with a hemoglobin of 8.1 We'll continue to monitor her hemoglobin for another 24 hours and evaluate for blood loss. Assess & Plan/Chief Complaint The patient is an 81-year-old white female. She presented to the hospital emergency room with complaints of generalized weakness and shortness of breath. She was found to have a hemoglobin of 6. She has been transfused with 4 units of packed red blood cells. Today's hemoglobin was 10.7. She reports she has been feeling much better and has been walking in the halls. She denies having seen any red or black stools recently. She has chronic atrial fibrillation and takes Eliquis. She has not experienced any particular unusual bleeding bruising or bleeding from the gums when brushing teeth. Physical exam: She is alert and charming. Lungs are clear to auscultation. CV is irregular. Abdomen is soft without tenderness. Ankles show no pedal edema. Impression: Severe anemia etiology unclear. 2.chronic atrial fibrillation with oral anticoagulation. Discussion: The leading cause would be blood loss although one would have expected red or black stools. She has not had a colonoscopy since 2008. She is said to have diverticulosis. Given this I believe that it is time for a repeat colonoscopy. She was given a choice of endoscopy first and has chosen Dr. Fernandez. In the meantime she will be discharged and the scope will be planned as an outpatient. Dr. Max's office is faxing over a CBC from March 09. FOR Further information please see the discharge sequence Labs Laboratory Tests 10/25/16 04:45 10/26/16 06:09 JANICE MANCILLA MD Oct 26, 2016 15:37
[2016-10-26] MEDS ORDERED: AMLO5TAB2 PO (15:39)
--- NOTE | 2016-10-26 15:40 | Discharge Instructions ---
Discharge Instructions Discharge Medications New, Converted or Re-Newed RX: Transmitted to Pharmacy Patient Instructions Patient Instructions: Resume diet and activities. As noted on the medication list hold the Eliquis for now. Observe stools for red blood or black color. Expect a call from Dr. Fernandez's office tomorrow relative to making arrangements for colonoscopy Activity & Diet Discharge Diet: No Restrictions JANICE MANCILLA MD Oct 26, 2016 15:40
[2016-10-26 16:00] VITALS: BP 134/70
[2016-10-26 19:19] VITALS: BP 134/70
== END 2016-10-26 20:05 | disposition home or self-care (01) | DRG 812 ==
LOC: EDUNIT# 18:50 → ER 18:52 → 4TH 22:00
PROVIDERS: ADMIT Internal Medicine; ATTEND Internal Medicine
DX: D64.9 Anemia, unspecified (principal); I48.0 Paroxysmal atrial fibrillation; I10 Essential (primary) hypertension; K57.90 Diverticulosis of intestine, part unspecified, without perforation or abscess without bleeding
CPT/HCPCS: 36415; 71020; 74176; 80048; 81000; 82274; 82607; 82746; 83615; 83880; 84484; 85007; 85025; 85027; 85045; 85610; 85730; 86850; 86900; 86901; 86920; 93005; 93041; 96360

== ENCOUNTER → 2016-10-23 | Outpatient (CLI) | payer MEDICARE ==
[~2016-10-23] MED LIST changes: +ACET-2267 PO; +APIX2.5T PO; +BENZ-36 PO; -BENZ100C23 PO; +CALC-78 PO; +CHOL10007 PO; +CYAN10006 PO; +FURO40TA4 PO; -METO-270 PO; -METO-274 PO; +METO-387 PO; +METO-395 PO; +MICO90PO TOP; +MULT-35 PO; +NAPR220T66 PO; +POTA10TA6 PO; +POTA99TA21 PO
[2016-10-23 10:32] LABS: BASOPHILS % (AUTO) 0 % (0-10); EOSINOPHILS # (AUTO) 0.3 10^3/uL (0.0-0.3); EOSINOPHILS % (AUTO) 4 % (0-10); LYMPHOCYTES # (AUTO) 1.5 X 10^3 (1.0-4.0); LYMPHOCYTES % (AUTO) 19 % (12-44); MEAN CORPUSCULAR HEMOGLOBIN 25 PG (25-34); MEAN CORPUSCULAR HGB CONC 29 G/DL (32-36); MEAN CORPUSCULAR VOLUME 86 FL (80-99); MEAN PLATELET VOLUME 8.8 FL (7.4-10.4); MONOCYTES # (AUTO) 0.7 X 10^3 (0.0-1.0); MONOCYTES % (AUTO) 9 % (0-12); NEUTROPHILS # (AUTO) 5.2 X 10^3 (1.8-7.8); NEUTROPHILS % (AUTO) 67 % (42-75); PLATELET COUNT 358 10^3/uL (130-400); RED CELL DISTRIBUTION WIDTH 14.6 % (10.0-14.5); WHITE BLOOD COUNT 7.7 10^3/uL (4.3-11.0)
[2016-10-23 10:54] LABS: ALBUMIN 3.7 GM/DL (3.2-4.5); BILIRUBIN,TOTAL 0.3 MG/DL (0.1-1.0); CALCIUM 8.9 MG/DL (8.5-10.1); CREATININE SERUM 1.06 MG/DL (0.60-1.30); POTASSIUM 4.7 MMOL/L (3.6-5.0); TOTAL PROTEIN 6.3 GM/DL (6.4-8.2); hs C REACTIVE PROTEIN 0.74 MG/DL (0.00-0.50)
[2016-10-23 11:02] LABS: ERYTHROCYTE SEDIMENTATION RATE 58 MM/HR (0-30)
[2016-10-23 11:15] LABS: THYROID STIMULATING HORMONE 0.72 UIU/ML (0.35-4.94)
== END ==
LOC: CARD 10:14
PROVIDERS: ATTEND Internal Medicine Cardiovascular Disease
DX: R06.02 Shortness of breath (principal); E66.09 Other obesity due to excess calories; R53.83 Other fatigue; I48.0 Paroxysmal atrial fibrillation
CPT/HCPCS: 36415; 80053; 80061; 83735; 84443; 85025; 85652; 86141; 93225; 93226

== ENCOUNTER → 2016-11-04 | Outpatient (CLI) | payer MEDICARE ==
[~2016-11-04] MED LIST changes: +ACET-2267 PO; +CALC-78 PO; +CHOL10007 PO; +CYAN10006 PO; +MULT-35 PO; +NAPR220T66 PO; +POTA99TA21 PO
--- NOTE | 2016-11-04 18:41 | HISTORY AND PHYSICAL ---
DATE OF SERVICE: REQUESTING PHYSICIAN: Dr. Max. HISTORY OF PRESENT ILLNESS: The patient is an 81-year-old white female referred by Dr. Max for diagnostic panendoscopy. She was admitted on the 10/26/2016, with significant weakness and shortness of breath and found to have hemoglobin of 6. Her MCV was lowered into the normal range of 83. She had no recent episodes of melena or bright red blood per rectum. She did report in June, she had one episode of relatively large volume bright red blood per rectum with no other symptoms. She reports a history of diverticular disease. She reportedly underwent colonoscopy in 2008 that revealed diverticular disease only. She denies any abdominal pain, heartburn symptoms, odynophagia, dysphagia or change in weight. She has been overweight for most of her adult life, difficulty with weight loss. Her medical record was reviewed. She was admitted with a hemoglobin of 6.1 and her MCV was actually 86 at that time. After 4 units of packed cells, her hemoglobin is up to 10.7. Two occult studies were obtained. One was negative, one was positive. No other significant abnormalities were noted. CAT scan of the abdomen and pelvis revealed diverticular disease throughout the colon without evidence for acute diverticulitis. No other abnormalities were noted. FAMILY HISTORY: She is not aware of any family history for colon cancer or other GI tract malignancies. SOCIAL HISTORY: She is , still working with no past smoking history and no past drinking history. PAST SURGICAL HISTORY: Significant for cataract surgery, distant history of cholecystectomy and some orthopedic procedures that did not involve joint replacement. PAST MEDICAL HISTORY: Significant for paroxysmal atrial fibrillation and hypertension with no known history of coronary artery disease. She has a history of seasonal allergies. She takes Singulair for. Other medications include metoprolol 100 mg b.i.d. She had been on Eliquis 5 mg b.i.d., but this was discontinued on the 10/26/2016, at the time of her hospitalization. She takes Singulair 10 mg daily, amlodipine unknown dose daily and some multiple vitamins. ADDITIONAL MEDICATION HISTORY: She had been taking some Aleve, although she states she probably only had six doses in the month prior to her weakness and anemia admission for joint discomfort. She has been off the medication since her hospitalization. REVIEW OF SYSTEMS: CONSTITUTIONAL: Weaknesses has resolved. She denies any weight loss, chills, fever or weight change. Respiratory status: She denies dyspnea on exertion, cough, wheezing or shortness of breath. CARDIOVASCULAR: She has had no palpitations, chest pain, orthopnea, PND or pedal edema. GI: As per HPI. : She reports no dysuria, increased urinary frequency or flank pain. PHYSICAL EXAMINATION: GENERAL: Reveals pleasant overweight white female in no acute distress. VITAL SIGNS: Weight is 172 pounds. She is roughly 5 feet tall. Blood pressure is 121/74. There is mild pallor noted. HEENT: Sclerae nonicteric. NECK: Revealed no JVD, adenopathy or bruits. CHEST: Clear. CARDIOVASCULAR: Regular rate and rhythm without murmur, S3 or S4. ABDOMEN: Soft, supple without mass, organomegaly or tenderness. There is a small reducible periumbilical hernia, nontender noted, no pain to palpation was noted. Bowel sounds are noted in all four quadrants. EXTREMITIES: Reveal no cyanosis or clubbing with trace pedal edema. ASSESSMENT AND PLAN: For further evaluation of significant anemia and occult positive blood in the stool, the patient was set up for colonoscopy with possible esophagogastroduodenoscopy to follow considering Eliquis and intermittent Aleve use. We did discuss the fact that upper tract ulcers many times were silent. Prep instructions with Suprep kit were given and the patient was also instructed to take metoclopramide 5 mg tablet half an hour before her split doses. With today's evaluation and then subsequent evaluation of her electronic medical record, 45 minutes of my care time has been spent with another 10 to 15 minutes of staff time going over prep instructions setting up for procedure for 11/06/2016. I thank you for the referral of this pleasant lady. Job ID: [id number] DocumentID: [id number] Dictated Date: 11/04/2016 15:48:27 Dispatch Manager Date: 11/04/2016 18:40:33 Dictated By: SUAD CASE MD
== END ==
LOC: PREOP 14:06
PROVIDERS: ATTEND Internal Medicine
DX: Z01.818 Encounter for other preprocedural examination (principal); D64.9 Anemia, unspecified

== ENCOUNTER 2016-11-06 08:35 | Day surgery (SDC) | payer MEDICARE ==
[~2016-11-06] VITALS: Ht 157.5 cm; Wt 77.7 kg
[2016-11-06] MEDS ORDERED: 1/2 NS IV SOLUTION 1,000 ML IV ONE ×2 (08:45→08:49)
[2016-11-06] MEDS ORDERED: LIDOCAINE JELLY 2% (XYLOCAINE) 5 ML TUBE MM PRN (08:45)
[2016-11-06 08:51] VITALS: BP 159/61
[2016-11-06] MEDS ORDERED: AMLO5TAB2 PO (09:07)
[2016-11-06] MEDS ORDERED: fentaNYL INJECTION 100 MCG/2 ML AMP ONE (09:45)
[2016-11-06] MEDS ORDERED: LIDOCAINE JELLY 2% (XYLOCAINE) 5 ML TUBE ONE (09:45)
--- NOTE | 2016-11-06 09:56 | Pre-Op Note & Conscious Sedat ---
Pre-Operative Progress Note H&P Reviewed The H&P was reviewed, patient examined and no changes noted. Date H&P Reviewed: Nov 06, 2016 Time H&P Reviewed: 09:55 Conscious Sedation Pre-Proced ASA Class: 3 Airway Mallampati Classification: ([place] appropriate class) I. II. III, IV Lungs Heart ASA score ASA 1: a normal healthy patient ASA 2: a patient with a mild systemic disease (mid diabetes, controlled hypertension, obesity ASA 3: a patient with a severe systemic disease that limits activity (angina , COPD, prior Myocardial infarction) ASA 4: a patient with an incapacitating disease that is a constant threat to life (CHF, renal failure) ASA 5: a moribund patient not expected to survive 24 hrs. (ruptured aneurysm) ASA 6: a declared brain patient whose organs are being harvested. For emergent operations, add the letter E after the classification Grade 3 Sedation Plan: Analgesia, Amnesia, Plan communicated to team members, Discussed options with patient/fam, Discussed risks with patient/fam Note The patient is an appropriate candidate to undergo the planned procedure, sedation, and anesthesia. The patient immediately re-assessed prior to indication. SUAD CASE MD Nov 06, 2016 09:56
[2016-11-06] MEDS: fentaNYL INJECTION 100 MCG/2 ML AMP IVP PRN ×2 (10:03→10:04)
[2016-11-06] MEDS: MIDAZOLAM 2 MG/2 ML (VERSED) VIAL IVP PRN ×2 (10:03→10:04)
[2016-11-06 10:45] VITALS: BP 161/67
[2016-11-06 11:30] VITALS: BP 156/62
--- NOTE | 2016-11-07 06:07 | OPERATIVE REPORT ---
DATE OF SERVICE: 11/06/2016 INDICATIONS FOR PROCEDURE: Diagnostic colonoscopy secondary to GI bleed. The patient was placed in left lateral decubitus position. Prior to undergoing colonoscopy digital rectal evaluation was performed. Anal sphincter tone was normal and the perianal reflex is intact. No abnormalities are noted, additional inspection of anal canal or distal rectal vault. The colonoscope was then inserted into the rectum under direct visualization and advanced to the cecum. The cecum was identified by identification of the ileocecal valve with cecal strap. FINDINGS: There was no evidence for internal or external hemorrhoids and the rectum was unremarkable. Present throughout the sigmoid colon, descending colon and to a lesser extent transverse colon were multiple small to medium size sigmoid diverticulum without evidence for diverticulitis. No evidence for blood was noted. Present in the mid ascending colon was an annular friable mass involving at least 3/4 of the bowel wall. I was able to easily get beyond the mass to visualize the remainder of the ascending colon and cecum that was unremarkable. Biopsies were obtained with a little more than average amount of bleeding but still likely no more than 5 mL. Bleeding subsided during the observation. ASSESSMENT: 1. Large annular mass involving the mid ascending colon compatible with adenocarcinoma of the colon was present today. The patient had a CT scan of the abdomen and pelvis without contrast due to a dye allergy which revealed no CT evidence for tumor outside the bowel or in the liver 2 weeks ago. CEA level was drawn today and the patient was advised to call Dr. Max to discuss recommendations on surgical referral. She was apprised of her diagnosis. 2. Moderate diverticular disease involving the sigmoid colon, descending colon and to a lesser extent the transverse colon without evidence for diverticulitis. Job ID: [id number] DocumentID: [id number] Dictated Date: 11/06/2016 11:30:53 Grain I Farmworker Date: 11/07/2016 06:07:25 Dictated By: SUAD CASE MD
--- NOTE | 2016-11-18 08:07 | HISTORY AND PHYSICAL ---
DATE OF SERVICE: REQUESTING PHYSICIAN: Dr. Max. HISTORY OF PRESENT ILLNESS: The patient is an 81-year-old white female referred by Dr. Max for diagnostic panendoscopy. She was admitted on the 10/26/2016, with significant weakness and shortness of breath and found to have hemoglobin of 6. Her MCV was lowered into the normal range of 83. She had no recent episodes of melena or bright red blood per rectum. She did report in June, she had one episode of relatively large volume bright red blood per rectum with no other symptoms. She reports a history of diverticular disease. She reportedly underwent colonoscopy in 2008 that revealed diverticular disease only. She denies any abdominal pain, heartburn symptoms, odynophagia, dysphagia or change in weight. She has been overweight for most of her adult life, difficulty with weight loss. Her medical record was reviewed. She was admitted with a hemoglobin of 6.1 and her MCV was actually 86 at that time. After 4 units of packed cells, her hemoglobin is up to 10.7. Two occult studies were obtained. One was negative, one was positive. No other significant abnormalities were noted. CAT scan of the abdomen and pelvis revealed diverticular disease throughout the colon without evidence for acute diverticulitis. No other abnormalities were noted. FAMILY HISTORY: She is not aware of any family history for colon cancer or other GI tract malignancies. SOCIAL HISTORY: She is , still working with no past smoking history and no past drinking history. PAST SURGICAL HISTORY: Significant for cataract surgery, distant history of cholecystectomy and some orthopedic procedures that did not involve joint replacement. PAST MEDICAL HISTORY: Significant for paroxysmal atrial fibrillation and hypertension with no known history of coronary artery disease. She has a history of seasonal allergies. She takes Singulair for. Other medications include metoprolol 100 mg b.i.d. She had been on Eliquis 5 mg b.i.d., but this was discontinued on the 10/26/2016, at the time of her hospitalization. She takes Singulair 10 mg daily, amlodipine unknown dose daily and some multiple vitamins. ADDITIONAL MEDICATION HISTORY: She had been taking some Aleve, although she states she probably only had six doses in the month prior to her weakness and anemia admission for joint discomfort. She has been off the medication since her hospitalization. REVIEW OF SYSTEMS: CONSTITUTIONAL: Weaknesses has resolved. She denies any weight loss, chills, fever or weight change. Respiratory status: She denies dyspnea on exertion, cough, wheezing or shortness of breath. CARDIOVASCULAR: She has had no palpitations, chest pain, orthopnea, PND or pedal edema. GI: As per HPI. : She reports no dysuria, increased urinary frequency or flank pain. PHYSICAL EXAMINATION: GENERAL: Reveals pleasant overweight white female in no acute distress. VITAL SIGNS: Weight is 172 pounds. She is roughly 5 feet tall. Blood pressure is 121/74. There is mild pallor noted. HEENT: Sclerae nonicteric. NECK: Revealed no JVD, adenopathy or bruits. CHEST: Clear. CARDIOVASCULAR: Regular rate and rhythm without murmur, S3 or S4. ABDOMEN: Soft, supple without mass, organomegaly or tenderness. There is a small reducible periumbilical hernia, nontender noted, no pain to palpation was noted. Bowel sounds are noted in all four quadrants. EXTREMITIES: Reveal no cyanosis or clubbing with trace pedal edema. ASSESSMENT AND PLAN: For further evaluation of significant anemia and occult positive blood in the stool, the patient was set up for colonoscopy with possible esophagogastroduodenoscopy to follow considering Eliquis and intermittent Aleve use. We did discuss the fact that upper tract ulcers many times were silent. Prep instructions with Suprep kit were given and the patient was also instructed to take metoclopramide 5 mg tablet half an hour before her split doses. With today's evaluation and then subsequent evaluation of her electronic medical record, 45 minutes of my care time has been spent with another 10 to 15 minutes of staff time going over prep instructions setting up for procedure for 11/06/2016. I thank you for the referral of this pleasant lady. Job ID: [id number] DocumentID: [id number] Dictated Date: 11/04/2016 15:48:27 Real Estate Loan Officer Date: 11/04/2016 18:40:33 Dictated By: SUAD CASE MD <Dictated by SUAD CASE MD> <Electronically signed by SUAD CASE MD> 11/08/16 0903
== END 2016-11-06 11:50 | disposition home or self-care (01) ==
LOC: ENDO 08:35
PROVIDERS: ATTEND Internal Medicine
DX: C18.2 Malignant neoplasm of ascending colon (principal); K57.30 Diverticulosis of large intestine without perforation or abscess without bleeding; D64.9 Anemia, unspecified; I48.0 Paroxysmal atrial fibrillation; I10 Essential (primary) hypertension; J30.2 Other seasonal allergic rhinitis; Z79.899 Other long term (current) drug therapy
CPT/HCPCS: 36415; 82378; 88305

== ENCOUNTER 2016-11-17 15:14 | Outpatient (CLI) | payer MEDICARE ==
[~2016-11-17] VITALS: Ht 157.5 cm; Wt 78.9 kg
[2016-11-17 15:23] VITALS: BP 177/63
== END 2016-11-17 15:49 | disposition home or self-care (01) ==
LOC: PREOP 15:14
PROVIDERS: ATTEND Surgery
DX: Z01.818 Encounter for other preprocedural examination (principal); C18.9 Malignant neoplasm of colon, unspecified
CPT/HCPCS: 87081

== ENCOUNTER 2016-11-19 10:06 | Inpatient (IN) | payer MEDICARE ==
[~2016-11-19] VITALS: Ht 157.5 cm; Wt 106.4 kg
[2016-11-19] VITALS (9 sets, daily range): BP systolic 109–142; BP diastolic 46–71
[2016-11-19] MEDS ORDERED: metroNIDAZOLE 500 MG/100 ML IVPB (PRE-MIX) IV ONE (10:45)
[2016-11-19] MEDS ORDERED: CLINDAMYCIN 600 MG/NS 50 ML IVPB IV ONE ×2 (10:45)
[2016-11-19] MEDS: LACTATED RINGERS 1,000 ML IV PRN ×2 (10:50→14:45)
--- NOTE | 2016-11-19 10:54 | Progress Note-Pre Operative ---
Pre-Operative Progress Note H&P Reviewed The H&P was reviewed, patient examined and no changes noted. Date Seen by Provider: Nov 19, 2016 Time Seen by Provider: 10:54 Date H&P Reviewed: Nov 19, 2016 Time H&P Reviewed: 10:54 Pre-Operative Diagnosis: right colon cancer STEPHANY ALY MD Nov 19, 2016 10:54
[2016-11-19] MEDS ORDERED: MIDAZOLAM 2 MG/2 ML (VERSED) VIAL IV ONE (11:00)
[2016-11-19] MEDS ORDERED: SEVOFLURANE (ULTANE) 15 ML INHAL SOLN ONE ×13 (11:12→15:40)
[2016-11-19] MEDS ORDERED: LACTATED RINGERS 1,000 ML IV ONE ×2 (11:12→14:42)
[2016-11-19] MEDS ORDERED: LIDOCAINE PF 2% 5 ML (XYLOCAINE) VIAL ONE (11:12)
[2016-11-19] MEDS ORDERED: DEXAMETHASONE 10 MG/ML (DECADRON) 1 ML VIAL ONE (11:12)
[2016-11-19] MEDS ORDERED: proPOfol 200 MG/20 ML (DIPRIVAN) VIAL IV ONE (11:12)
[2016-11-19] MEDS ORDERED: ONDANSETRON 4 MG/2 ML (SDV) Z0FRAN ONE ×2 (11:12→14:33)
--- NOTE | 2016-11-19 11:51 | Progress Note-Post Operative ---
Post-Operative Progess Note Surgeon (s)/Broodmare Foreman (s) Surgeon STEPHANY ALY MD Broodmare Foreman: aury shepard BOX BLANK MACHINE FEEDER Pre-Operative Diagnosis right colon cancer Post-Operative Diagnosis same Procedure & Operative Findings Date of Procedure 11/19/16 Procedure Performed/Findings laparoscopic right hemicolectomy. left subclavian central venous catheter placement. Anesthesia Type GET Estimated Blood Loss Estimated blood loss (mL): minimal Specimens/Packing Specimens Removed right colon STEPHANY ALY MD Nov 19, 2016 11:51 am
[2016-11-19] MEDS ORDERED: BUP/EPI 0.5% 1:200,000 (MARCAINE) 10ML VIAL IJ ONE (12:01)
[2016-11-19] MEDS ORDERED: HEParin (CENTRAL IV FLUSH) 500 UNIT/5 ML SYR ONE (12:18)
[2016-11-19] MEDS ORDERED: fentaNYL INJECTION 100 MCG/2 ML AMP ONE ×2 (12:36→14:33)
[2016-11-19] MEDS ORDERED: morphine INJ 10 MG/ML 1ML (SYR OR VIAL) ONE (14:33)
[2016-11-19] MEDS ORDERED: MEPERIDINE (DEMEROL) INJ 50 MG/ML IVP PRN (16:00)
[2016-11-19] MEDS ORDERED: ONDANSETRON 4 MG/2 ML (SDV) Z0FRAN IVP PRN (16:00)
[2016-11-19] MEDS ORDERED: NS IV 1000 ML 1,000 ML IV SCH (16:01)
[2016-11-19] MEDS ORDERED: NALOXONE 0.4 MG/ML 1 ML (NARCAN) VIAL IV PRN (16:15)
[2016-11-19] MEDS ORDERED: ONDANSETRON 4 MG/2 ML (SDV) Z0FRAN IV PRN (16:15)
[2016-11-19] MEDS ORDERED: METOCLOPRAMIDE INJ 10 MG/2 ML (REGLAN) IV PRN (16:15)
[2016-11-19] MEDS ORDERED: diphenhydrAMINE 50 MG/ML INJ (BENADRYL) IV PRN (16:15)
[2016-11-19] MEDS ORDERED: diphenhydrAMINE 25 MG TAB (BENADRYL) PO PRN (16:15)
[2016-11-19] MEDS ORDERED: diphenhydrAMINE 50 MG/ML INJ (BENADRYL) IVP PRN (16:15)
[2016-11-19] MEDS: morphine INJ 10 MG/ML 1ML (SYR OR VIAL) IVP PRN ×2 (16:45→17:04)
--- NOTE | 2016-11-19 17:22 | Diagnostic Imaging Report ---
INDICATION: PICC line insertion. EXAMINATION: Portable erect AP chest at 4:25 p.m. FINDINGS: There is shallow inspiration when compared to the prior exam of 10/23/16. Allowing for this technical factor, the heart size is within normal limits and stable when compared to the prior study. In the interval since the previous exam; however, mild atelectasis/infiltrate has developed in the left perihilar region and left retrocardiac area. There may be a small amount of increased density about the right hilum as well. The lungs are otherwise clear. The mediastinum is not widened. The osseous structures are intact. Also, in the interval since the prior examination, an NG line has been inserted. The tip of the line is coiled on itself in the region of the gastroesophageal junction and the tip of line is now directed cephalad. There has also been insertion of a left-sided PICC line. The tip of the PICC line overlies the distal superior vena cava and appears to be in good position. There is no sign of a pneumothorax on the left. IMPRESSION: 1. The appearance of the chest has worsened since the prior study as mild pneumonia/atelectasis has developed in both perihilar regions and in the left retrocardiac area. A followup would be recommended for continued evaluation. 2. There has been insertion of a left-sided PICC line without apparent complication; however, newly inserted NG line is coiled on itself in the region of the distal esophagus. The tip of the line should be repositioned. Critical finding Report was called to nurse Rodriguez in the ICU at 5:09 p.m., by amira. Dictated by: Dictated on workstation # [id number]
[2016-11-19] MEDS ORDERED: NS IV 500 ML 500 ML ONE (18:05)
[2016-11-19] MEDS: 1/2 NS W/KCL 20 MEQ/L 1,000 ML IV SCH (18:08)
[2016-11-19] MEDS: morphine PCA 30 MG/30 ML VIAL IV PRN (18:23)
[2016-11-19] MEDS: RT-ALBUTEROL SULF 2.5 MG/3 ML PRE-MIX VIAL INH SCH ×2 (19:20→23:03)
[2016-11-19] MEDS: ENOXAPARIN 30 MG/0.3 ML (LOVENOX) SYR SC SCH (21:53)
[2016-11-19] MEDS: meTOprolol 5 MG/5 ML (LOPRESSOR) VIAL IVP SCH (21:53)
[2016-11-19] MEDS: metroNIDAZOLE 500MG/100ML IVPB 100 ML IV SCH (21:54)
[2016-11-19] MEDS: CLINDAMYCIN 600 MG/NS 50 ML IVPB IV SCH ×2 (21:54)
[2016-11-19] MEDS ORDERED: ceFAZolin 2 GM/50 ML NS 50 ML IV SCH (22:00)
[2016-11-20] VITALS (24 sets, daily range): BP systolic 97–125; BP diastolic 41–67
[2016-11-20] MEDS: 1/2 NS W/KCL 20 MEQ/L 1,000 ML IV SCH (00:58)
[2016-11-20] MEDS: meTOprolol 5 MG/5 ML (LOPRESSOR) VIAL IVP SCH ×6 (01:22→19:58)
[2016-11-20] MEDS: RT-ALBUTEROL SULF 2.5 MG/3 ML PRE-MIX VIAL INH SCH ×5 (01:51→21:02)
--- NOTE | 2016-11-20 02:06 | OPERATIVE REPORT ---
DATE OF SERVICE: 11/19/2016 ATTENDING PRIMARY CARE PHYSICIAN: Dr. Max. PREOPERATIVE DIAGNOSIS: Right colon cancer. POSTOPERATIVE DIAGNOSIS: Right colon cancer. PROCEDURE: Laparoscopic right hemicolectomy. Left subclavian central venous catheter placement. SURGEON: Dr. Gaston. QUALITY CONTROL HEAD: Mark Martinez APRN. ANESTHESIA: General endotracheal. ESTIMATED BLOOD LOSS: 100 mL. FINDINGS: Mass at approximately the hepatic flexure. No obvious lymphadenopathy or peritoneal carcinomatosis. DISPOSITION: The patient tolerated the procedure well. INDICATIONS: The patient is an 81-year-old female, referred over to us for a biopsy-proven colon cancer along what was believed the ascending colon. She reported that approximately 06/2016, she did notice a significant amount of blood mixed with her stools, which was the first event that she had ever noticed. Since that time, she has had not witnessed any blood per rectum. She was found to be significantly anemic, requiring transfusion of approximately 4 units of blood approximately 2 weeks ago. She then underwent a colonoscopy on 11/07/2016, which did show a significant sized lesion, which was circumferential along the descending colon with a friable mucosa. This was biopsied and consistent with a poorly differentiated adenocarcinoma. A CT scan was performed, which did not show any tumor outside of the bowel or within the liver. DESCRIPTION OF PROCEDURE: The patient was brought to the operating room, laid supine on the table. After adequate IV pain and sedating medications and general endotracheal intubation, the neck and chest were prepped and draped in standard surgical fashion. The left subclavian vein was cannulated with drawing of venous blood. The guidewire was then inserted without any resistance. The cannulating needle removed and a skin incision was made using an 11 blade. A tract was then created using a venous dilator. A triple lumen central venous catheter was then placed over the guidewire using a Seldinger technique. The guidewire removed and all 3 ports yovanny venous blood and flushed pristine without any resistance. Catheter was then cleaned and covered with sterile gauze followed by Op-Site. The abdomen was then prepped and draped in standard surgical fashion. The patient was placed in modified lithotomy for auxiliary operator positioning purposes. An area in the left upper abdomen was then anesthetized using 0.5% Marcaine with epinephrine and a transverse skin incision made using a 15 blade. An 0 silk suture was applied to the medial aspect of the incision for retraction and a Veress needle inserted with a low opening pressure of 0 mmHg and the abdomen was insufflated to 15 mmHg pressure. Veress needle removed and a 5 mm Xcel trocar placed followed by a 5 mm 45 degree angle laparoscope visualizing the peritoneal cavity. A 4-quadrant abdominal exploration was performed. There was no peritoneal carcinomatosis identified. No liver lesions identified. The mass was not visualized in this setting. There was also no lymphadenopathy noted. Under direct visualization, we then proceeded to place a supraumbilical 10 mm port after the skin and peritoneum were anesthetized using 0.5% Marcaine with epinephrine and a transverse skin incision made using a 15 blade. A suprapubic and right lower abdominal quadrant 5 mm ports were placed similarly. The patient was then placed in Trendelenburg position as well as plane right side up, left side down. We then proceeded with the dissection of the colon from the medial to lateral mesocolic standpoint encompassing a wedge of mesentery. We started approximately 5 cm from the terminal ileum and in a wedge shape made our dissection using the Sonicision towards the base of the mesentery. We then proceeded upwards towards the transverse colon. During the dissection, the duodenum was identified and spared. We then proceeded to take down the white lines of Toldt laterally as well as the hepatic flexure using the Sonicision. The gastrocolic ligament was then dissected as well until the entire right colon was free. Good hemostasis was observed. The lesion was now identified and appeared to be at the proximal hepatic flexure. The right lower abdominal quadrant 5 mm port skin incision was then extended medially using a 15 blade and electrocautery and the right colon was eviscerated through this opening. The distal transverse colon as well as the terminal ileum was then approximated using 3-0 silk sutures. The transverse colon as well as the terminal ileum was then transected using a ISIAH 55 mm stapler with 3.5 mm thickness loads. The ends were then cut open and we then proceeded with [id number] anastomosis using the same ISIAH 55 mm stapler. The open end was then reapproximated loosely using interrupted 3-0 silk sutures and stapled using the same ISIAH 55 mm stapler. The mesentery was then closed using 3-0 Vicryl running suture. The staple line was also bolstered using seromuscular sutures of 3-0 silk interrupted sutures. Good hemostasis was observed. The anastomosis was then placed back into the abdominal cavity. The abdomen was then copiously irrigated and suctioned out with visualization of good hemostasis. The anastomosis appeared well vascularized. A 19-Portuguese Luis-Turner drain was placed into the right subhepatic space as well as the previous right pericolic gutter. The extended incision of fascia and peritoneum were then closed using #1 PDS looped running suture. The 10 mm port site fascia and peritoneum were then closed under direct visualization using a Des-Jesica device and 0 Vicryl suture. Abdomen was desufflated and the remaining ports removed. All skin incisions were closed using 4-0 Monocryl running subcuticular sutures. Wounds were then cleaned and covered with sterile gauze. The patient tolerated the procedure well. We will admit her to the ICU. We will start IV pain medication with CONFERENCE TRANSLATOR pump. We will also proceed with DVT prophylaxis with early ambulation, calf SCDs as well as Lovenox injections. We will await bowel function as well and proceed with atelectasis and pneumonia prophylaxis with breathing treatments and incentive spirometry. We will also get internal medicine involved as well. Once she has significant bowel movement, we will remove the NG tube and start clear liquid diet and advance as tolerated. Job ID: [id number] DocumentID: [id number] Dictated Date: 11/19/2016 16:26:27 Supervisor Shearing Date: 11/19/2016 22:56:26 Dictated By: STEPHANY GASTON MD [facility]
[2016-11-20] MEDS ORDERED: FUROSEMIDE 40 MG/4 ML INJ (LASIX) IVP ONE ×2 (02:30→14:30)
[2016-11-20 04:06] LABS: BASOPHILS % (AUTO) 0 % (0-10); EOSINOPHILS % (AUTO) 0 % (0-10); LYMPHOCYTES # (AUTO) 0.4 X 10^3 (1.0-4.0); LYMPHOCYTES % (AUTO) 3 % (12-44); MEAN CORPUSCULAR HEMOGLOBIN 29 PG (25-34); MEAN CORPUSCULAR HGB CONC 32 G/DL (32-36); MEAN CORPUSCULAR VOLUME 89 FL (80-99); MEAN PLATELET VOLUME 10.4 FL (7.4-10.4); MONOCYTES # (AUTO) 0.4 X 10^3 (0.0-1.0); MONOCYTES % (AUTO) 3 % (0-12); NEUTROPHILS # (AUTO) 12.3 X 10^3 (1.8-7.8); NEUTROPHILS % (AUTO) 94 % (42-75); PLATELET COUNT 229 10^3/uL (130-400); RED BLOOD COUNT 4.38 10^6/uL (4.35-5.85); RED CELL DISTRIBUTION WIDTH 17.5 % (10.0-14.5); WHITE BLOOD COUNT 13.1 10^3/uL (4.3-11.0)
[2016-11-20] MEDS: metroNIDAZOLE 500MG/100ML IVPB 100 ML IV SCH ×2 (04:12→12:17)
[2016-11-20] MEDS: CLINDAMYCIN 600 MG/NS 50 ML IVPB IV SCH ×4 (04:12→12:17)
[2016-11-20 04:26] LABS: CALCIUM 8.1 MG/DL (8.5-10.1); CREATININE SERUM 1.24 MG/DL (0.60-1.30); MAGNESIUM 2.1 MG/DL (1.8-2.4); PHOSPHORUS 5.1 MG/DL (2.3-4.7); POTASSIUM 4.7 MMOL/L (3.6-5.0)
--- NOTE | 2016-11-20 06:47 | Pulmonary Consultation ---
History of Present Illness History of Present Illness Date of Consultation 11/20/16 06:41 Time Seen by Provider: 06:41 Date of Admission History of Present Illness 81yo with recent dx of colon cancer adenocarcinoma presented for elective hemicolectomy. Allergies and Home Medications Allergies Coded Allergies: Penicillins (Unverified Allergy, Mild, 10/26/08) iodine (Unverified Allergy, Mild, 10/26/08) Sulfa (Sulfonamide Antibiotics) (Verified Allergy, Unknown, 11/06/16) sulfamethoxazole (Verified Allergy, Unknown, 12/05/14) trimethoprim (Verified Allergy, Unknown, 12/05/14) Home Medications Acetaminophen 500 Mg Tablet, 500 MG PO BID, (Reported) Amlodipine Besylate 5 Mg Tablet, 5 MG PO DAILY, (Reported) Calcium Carbonate/Vitamin D3 1 Each Tablet, 1 TAB PO DAILY, (Reported) Cholecalciferol (Vitamin D3) 1,000 Unit Capsule, 1,000 UNIT PO DAILY, (Reported) Cyanocobalamin (Vitamin B-12) 1,000 Mcg Tablet, 1,000 MCG PO DAILY, (Reported) Metoprolol Succinate 100 Mg Tab.er.24h, 100 MG PO BID, (Reported) Montelukast Sodium 10 Mg Tablet, 10 MG PO HS, (Reported) Multivitamin 1 Each Tablet, 1 TAB PO DAILY, (Reported) Potassium Gluconate 99 Mg Tablet, 99 MG PO DAILY, (Reported) Past Adgzcnm-Fsqlky-Tuopoz Hx Patient Social History Alcohol Use: Denies Use Recreational Drug Use: No Recent Foreign Travel: No Contact w/Someone Who Travel: No Recent Infectious Disease Expo: No Recent Hopitalizations: No Immunizations Up To Date Date of Pneumonia Vaccine: Dec 06, 2012 Seasonal Allergies Seasonal Allergies: Yes Surgeries History of Surgeries: Yes (cataracts removed) Surgeries: Eye Surgery, Gallbladder, Orthopedic Respiratory History of Respiratory Disorde: Yes Respiratory Disorders: Asthma, Chronic Bronchitis Currently Using CPAP: No Currently Using BIPAP: No Cardiovascular History of Cardiac Disorders: Yes Cardiac Disorders: Atrial Fibrillation, Hypertension Neurological History of Neurological Disord: No Reproductive System Hx Reproductive Disorders: No Sexually Transmitted Disease: No HIV/AIDS: No Genitourinary History of Genitourinary Disor: No Gastrointestinal History of Gastrointestinal Di: Yes (diverticulitis, colon ca) Gastrointestinal Disorders: Diverticulosis Musculoskeletal History of Musculoskeletal Dis: Yes (arthritis/lymphedema both legs) Musculoskeletal Disorders: Arthritis Endocrine History of Endocrine Disorders: No HEENT History of HEENT Disorders: Yes HEENT Disorders: Cataract Loss of Vision: Denies Hearing Impairment: Denies Cancer History of Cancer: Yes Cancer: Colon Psychosocial History of Psychiatric Problem: No Integumentary History of Skin or Integumenta: Yes (currently has fine rash over arms) Blood Transfusions History of Blood Disorders: Yes (current anemia ) Adverse Reaction to a Blood Tr: No Family Medical History Family Medial History: Cancer around heart 19 FATHER Cardiovascular disease 19 MOTHER Congenital heart disease 19 MOTHER Hypertension 19 MOTHER Respiratory disorder 19 FATHER (lung cancer) Exam Exam Vital Signs Date Time Temp Pulse Resp B/P (MAP) Pulse Ox O2 Delivery O2 Flow Rate FiO2 11/20/16 02:08 78 16 97 Nasal Cannula 2.00 11/20/16 02:00 75 12 107/55 99 Nasal Cannula 4.00 11/20/16 01:51 97 Nasal Cannula 3.00 11/20/16 01:00 82 13 124/59 97 Nasal Cannula 4.00 11/20/16 01:00 82 11/20/16 00:00 80 12 124/59 95 Nasal Cannula 4.00 11/19/16 23:03 95 Nasal Cannula 4.00 11/19/16 23:00 78 17 119/58 96 Nasal Cannula 4.00 11/19/16 22:00 83 18 127/64 99 Nasal Cannula 4.00 11/19/16 21:00 84 13 128/59 96 Nasal Cannula 4.00 11/19/16 20:00 81 16 121/55 97 Nasal Cannula 4.00 11/19/16 20:00 97.3 Nasal Cannula 4.00 11/19/16 20:00 Nasal Cannula 3.00 11/19/16 19:30 82 19 120/56 97 Nasal Cannula 4.00 11/19/16 19:21 Nasal Cannula 4.00 11/19/16 19:20 96 OxyMask 4.00 11/19/16 19:00 79 11/19/16 19:00 79 26 112/53 88 OxyMask 4.00 11/19/16 18:23 22 11/19/16 18:00 78 21 111/49 91 OxyMask 4.00 11/19/16 17:15 97.1 68 19 109/46 96 OxyMask 4.00 11/19/16 10:48 98.0 65 16 142/71 96 Room Air Results Lab Laboratory Tests 11/20/16 03:45 Assessment/Plan Assessment/Plan s/p right hemicolectomy POD #1 -pain control Adenocarcinoma of right colon -Clindamycin, and Flagyl currently Atelectasis r/o PNA - Doubt pneumonia -IS -SVNs Intravascular dehydration with decreased UO -change IVF from 1/2NS with 20meq KCL to NS without KCL at 150 -Will give 500NS bolus secondary to decreased UO -Monitor UO 254 MONE GRIFFIN DO Nov 20, 2016 06:47
[2016-11-20] MEDS ORDERED: NS IV 500 ML 500 ML ONE ×2 (07:00→14:53)
[2016-11-20] MEDS: NS IV 1000 ML 1,000 ML IV SCH ×3 (07:13→20:05)
[2016-11-20] MEDS ORDERED: NS IV 500 ML 500 ML IV ONE ×2 (07:15→11:45)
--- NOTE | 2016-11-20 07:56 | Diagnostic Imaging Report ---
Portable upright radiograph of the chest. INDICATION: Postoperative colon resection. Shortness of breath. COMPARISON: 11/19/2016. FINDINGS: The NG tube appears to be looped around the gastroesophageal junction, and the tip projects back into the lower thorax probably within the distal esophagus or a small hiatal hernia. Left subclavian line is seen. There is subsegmental left perihilar and basilar opacities favored to be atelectasis. There is a small left effusion. The heart size is mildly enlarged. The right lung demonstrates minimal basilar atelectasis. IMPRESSION: 1. Unchanged bibasilar opacities more on the left likely related to atelectasis. 2. Small left pleural effusion. 3. The NG tube forms a loop, and its distal end projects over the level of the distal esophagus. Advancing the NG tube by 5 to 10 cm would probably advance the tube into the stomach. Report was called and faxed to patient's nurse Michael @ [facility] in [place], [place] @ 7:53 AM/efrain. Dictated by: Dictated on workstation # [id number]
[2016-11-20] MEDS: SENNA W/DOCUSATE (SENOKOT S) TABLET PO SCH (08:14)
[2016-11-20] MEDS: ENOXAPARIN 30 MG/0.3 ML (LOVENOX) SYR SC SCH ×2 (08:14→21:44)
[2016-11-20] MEDS: PANTOPRAZOLE 40 MG/10 ML (PROTONIX) VIAL IV SCH (08:14)
--- NOTE | 2016-11-20 12:16 | Consultation-Hospitalist ---
HPI History of Present Illness: HPI/Chief Complaint CC: Medical management following colon cancer resection? HPI: This is an 81 [address] pt of [address] Max who presented following uncomplicated right luli-colectomy for colon ca. She is stable since surgery; BP stable, WBC 13.1 , Hgb 12.5, Creat1.24 Dr. Cardoso Review: Pt is doing well Patient Interview: Pt confirms Dr. Max as PCP Pt states her pain is okay as long as she is laying down Labs were discussed and pt asked about her Hgb, which looks good. Pt's BP looks okay Physical exam stable Pt believes she is breathing okay. Pt denies having home O2 and denies smoking Pt states she works at [employer] at the [facility] [facility] and she has worked there for 1 yr. 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 Lr. Source: patient, RN/MD Exam Limitations: no limitations Date Seen 11/20/16 Attending Physician Dick Gaston MD PCP Eddy Max MD Referring Physician Date of Admission Nov 19, 2016 at 10:06 Home Medications & Allergies Home Medications Reviewed patient Home Medication Reconciliation Form Allergies Allergies Coded Allergies Penicillins (Unverified Allergy, Mild, 10/26/08) iodine (Unverified Allergy, Mild, 10/26/08) Sulfa (Sulfonamide Antibiotics) (Verified Allergy, Unknown, 11/06/16) sulfamethoxazole (Verified Allergy, Unknown, 12/05/14) trimethoprim (Verified Allergy, Unknown, 12/05/14) Past Mauirkq-Hxqale-Rhdcoi Hx Patient Social History Employed/Student: retired Alcohol Use: Denies Use Recreational Drug Use: No Smoking Status: Never a Smoker Physical Abuse Screen: No Sexual Abuse: No Recent Foreign Travel: No Contact w/other who traveled: No Recent Hopitalizations: No Recent Infectious Disease Expo: No Immunizations Up To Date Date of Pneumonia Vaccine: Dec 06, 2012 Seasonal Allergies Seasonal Allergies: Yes Surgeries Yes (cataracts removed) Eye Surgery, Gallbladder, Orthopedic Respiratory Yes Chronic Bronchitis Currently Using CPAP: No Currently Using BIPAP: No Cardiovascular Yes Atrial Fibrillation, Hypertension Neurological No Reproductive System Hx Reproductive Disorders: No Sexually Transmitted Disease: No HIV/AIDS: No Genitourinary No Gastrointestinal Yes (diverticulitis, colon ca) Diverticulosis Musculoskeletal Yes (arthritis/lymphedema both legs) Arthritis Endocrine History of Endocrine Disorders: No HEENT History of HEENT Disorders: Yes HEENT Disorders: Cataract Loss of Vision: Denies Hearing Impairment: Denies Cancer Yes Colon Psychosocial History of Psychiatric Problem: No Integumentary History of Skin or Integumenta: Yes (currently has fine rash over arms) Blood Transfusions History of Blood Disorders: Yes (current anemia ) Adverse Reaction to a Blood Tr: No Family Medical History Family Hx: Cancer around heart 19 FATHER Cardiovascular disease 19 MOTHER Congenital heart disease 19 MOTHER Hypertension 19 MOTHER Respiratory disorder 19 FATHER (lung cancer) Review of Systems Constitutional: see HPI EENTM: no symptoms reported Respiratory: no symptoms reported Cardiovascular: no symptoms reported Gastrointestinal: abdominal pain (RLQ) Genitourinary: no symptoms reported Musculoskeletal: no symptoms reported Skin: no symptoms reported Psychiatric/Neurological: No Symptoms Reported All Other Systems Reviewed Negative Unless Noted: Yes Physical Exam Physical Exam Vital Signs Vital Sign - Last 12Hours 11/19/16 11/19/16 10:48 17:15 Temp 98.0 Pulse 65 Resp 16 B/P (MAP) 142/71 Pulse Ox 96 O2 Delivery Room Air O2 Flow Rate 4.00 Capillary Refill : General Appearance: No Apparent Distress, WD/WN, Chronically ill, Other (NG tube in place) Eyes: Bilateral Eye Normal Inspection, Bilateral Eye PERRL HEENT: PERRL/EOMI, Normal ENT Inspection, Pharynx Normal Neck: Full Range of Motion, Normal Inspection, Non Tender, Supple, Carotid Bruit Respiratory: Chest Non Tender, Lungs Clear, Normal Breath Sounds, No Accessory Muscle Use, No Respiratory Distress Cardiovascular: Regular Rate, Rhythm, No Edema, No Gallop, No JVD, No Murmur, Normal Peripheral Pulses Gastrointestinal: Normal Bowel Sounds, No Organomegaly, No Pulsatile Mass, Non Tender, Soft Back: Normal Inspection, No CVA Tenderness, No Vertebral Tenderness Extremity: Normal Capillary Refill, Normal Inspection, Normal Range of Motion, Non Tender, No Calf Tenderness, No Pedal Edema Neurologic/Psychiatric: Alert, Oriented x3, No Motor/Sensory Deficits, Normal Mood/Affect Skin: Normal Color, Warm/Dry Lymphatic: No Adenopathy Results Results/Procedures Lab Laboratory Tests 11/20/16 03:45 Assessment/Plan Admission Diagnosis Assessment: Status post right colectomy due to cancer Postop ileus on NG tube History of hypertension Assessment and Plan Plan: Recheck labs in am Monitor pt Will follow with you NICHELLE LR DO Nov 20, 2016 12:16
[2016-11-20] MEDS ORDERED: METOCLOPRAMIDE INJ 10 MG/2 ML (REGLAN) IVP PRN ×2 (13:45→16:15)
[2016-11-20] MEDS ORDERED: FUROSEMIDE 40 MG/4 ML INJ (LASIX) ONE (14:07)
--- NOTE | 2016-11-20 14:11 | Progress Note (SOAP) ---
Subjective Date Seen by Provider: Nov 20, 2016 Time Seen by Provider: 12:00 Subjective/Events-last exam doing well. pain controlled. sat in chair for 90 minutes this am. slightly low urine output with underlying renal insufficiency. Objective Exam Vital Signs Date Time Temp Pulse Resp B/P (MAP) Pulse Ox O2 Delivery O2 Flow Rate FiO2 11/20/16 12:29 Room Air 11/20/16 11:59 92 Room Air 11/20/16 11:00 87 18 109/47 92 Room Air 11/20/16 10:00 90 19 98/67 94 Room Air 11/20/16 09:00 86 20 101/52 90 Room Air 11/20/16 08:00 Room Air 11/20/16 08:00 97.5 85 20 115/52 92 Room Air 11/20/16 07:00 86 19 118/49 94 Room Air 11/20/16 07:00 87 11/20/16 06:40 96 Nasal Cannula 2.00 11/20/16 06:00 76 12 108/51 94 Nasal Cannula 2.00 11/20/16 06:00 12 11/20/16 05:00 76 16 102/54 95 Nasal Cannula 2.00 11/20/16 04:00 80 15 125/61 97 Nasal Cannula 2.00 11/20/16 04:00 Nasal Cannula 2.00 11/20/16 03:00 80 12 119/58 97 Nasal Cannula 2.00 11/20/16 02:08 78 16 97 Nasal Cannula 2.00 11/20/16 02:00 75 12 107/55 99 Nasal Cannula 4.00 11/20/16 01:51 97 Nasal Cannula 3.00 11/20/16 01:00 82 13 124/59 97 Nasal Cannula 4.00 11/20/16 01:00 82 11/20/16 00:00 80 12 124/59 95 Nasal Cannula 4.00 11/20/16 00:00 Nasal Cannula 2.00 11/19/16 23:03 95 Nasal Cannula 4.00 11/19/16 23:00 78 17 119/58 96 Nasal Cannula 4.00 11/19/16 22:00 83 18 127/64 99 Nasal Cannula 4.00 11/19/16 21:00 84 13 128/59 96 Nasal Cannula 4.00 11/19/16 21:00 12 9/14/17 20:00 81 16 121/55 97 Nasal Cannula 4.00 11/19/16 20:00 97.3 Nasal Cannula 4.00 11/19/16 20:00 Nasal Cannula 3.00 11/19/16 19:30 82 19 120/56 97 Nasal Cannula 4.00 11/19/16 19:21 Nasal Cannula 4.00 11/19/16 19:20 96 OxyMask 4.00 11/19/16 19:00 79 11/19/16 19:00 79 26 112/53 88 OxyMask 4.00 11/19/16 18:23 22 11/19/16 18:00 78 21 111/49 91 OxyMask 4.00 11/19/16 17:15 97.1 68 19 109/46 96 OxyMask 4.00 I & O 11/21/16 07:00 Intake Total 900 ml Output Total 190 ml Balance 710 ml Capillary Refill : General Appearance: No Apparent Distress HEENT: PERRL/EOMI Neck: Full Range of Motion Respiratory: Chest Non Tender, Lungs Clear, Normal Breath Sounds Cardiovascular: Regular Rate, Rhythm Gastrointestinal: soft, tenderness Extremity: Normal Capillary Refill Neurologic/Psychiatric: Alert, Oriented x3 Skin: Normal Color Lymphatic: No Adenopathy Results Lab Laboratory Tests 11/20/16 03:45: White Blood Count 13.1H, Red Blood Count 4.38, Hemoglobin 12.5, Hematocrit 39, Mean Corpuscular Volume 89, Mean Corpuscular Hemoglobin 29, Mean Corpuscular Hemoglobin Concent 32, Red Cell Distribution Width 17.5H, Platelet Count 229, Mean Platelet Volume 10.4, Neutrophils (%) (Auto) 94H, Lymphocytes (%) (Auto) 3L , Monocytes (%) (Auto) 3, Eosinophils (%) (Auto) 0, Basophils (%) (Auto) 0, Neutrophils # (Auto) 12.3H, Lymphocytes # (Auto) 0.4L, Monocytes # (Auto) 0.4, Eosinophils # (Auto) 0.0, Basophils # (Auto) 0.0, Sodium Level 135, Potassium Level 4.7, Chloride Level 105, Carbon Dioxide Level 19L, Anion Gap 11, Blood Urea Nitrogen 21H, Creatinine 1.24, Estimat Glomerular Filtration Rate 41, BUN/ Creatinine Ratio 17, Glucose Level 148H, Calcium Level 8.1L, Phosphorus Level 5.1H, Magnesium Level 2.1 Assessment/Plan Assessment/Plan Assess & Plan/Chief Complaint s/p laparoscopic right hemicolectomy. give small amout lasix(20mg), continue ambulation. await some bowel fxn and d/c NGT. transfer to floor. STEPHANY ALY MD Nov 20, 2016 2:11 pm
--- NOTE | 2016-11-20 14:36 | Anesthesia-General Post-Op ---
General Patient Condition Mental Status/LOC: Same as Preop Cardiovascular: Satisfactory Nausea/Vomiting: Absent Respiratory: Satisfactory Pain: Controlled Complications: Absent Post Op Complications Complications None Follow Up Care/Instructions Patient Instructions None needed. Anesthesia/Patient Condition Patient Condition Patient is doing well, no complaints, stable vital signs, no apparent adverse anesthesia problems. BOYD CINTRON DO Nov 20, 2016 14:36
[2016-11-20] MEDS ORDERED: NS IV 1000 ML 1,000 ML IV ONE (19:30)
[2016-11-20 19:48] LABS: BASOPHILS % (AUTO) 0 % (0-10); CALCIUM 7.5 MG/DL (8.5-10.1); CREATININE SERUM 1.55 MG/DL (0.60-1.30); EOSINOPHILS % (AUTO) 0 % (0-10); LYMPHOCYTES # (AUTO) 0.6 X 10^3 (1.0-4.0); LYMPHOCYTES % (AUTO) 3 % (12-44); MEAN CORPUSCULAR HEMOGLOBIN 28 PG (25-34); MEAN CORPUSCULAR HGB CONC 31 G/DL (32-36); MEAN CORPUSCULAR VOLUME 90 FL (80-99); MEAN PLATELET VOLUME 10.5 FL (7.4-10.4); MONOCYTES # (AUTO) 0.5 X 10^3 (0.0-1.0); MONOCYTES % (AUTO) 2 % (0-12); NEUTROPHILS # (AUTO) 19.4 X 10^3 (1.8-7.8); NEUTROPHILS % (AUTO) 95 % (42-75); PLATELET COUNT 189 10^3/uL (130-400); POTASSIUM 4.7 MMOL/L (3.6-5.0); RED BLOOD COUNT 3.74 10^6/uL (4.35-5.85); WHITE BLOOD COUNT 20.6 10^3/uL (4.3-11.0)
[2016-11-20 21:08] LABS: BAND NEUTROPHILS 39 %; BASOPHILS % (MANUAL) 0 %; EOSINOPHILS % (MANUAL) 0 %; LYMPHOCYTES % (MANUAL) 6 %; METAMYELOCYTES % 1 %; NEUTROPHILS % (MANUAL) 52 %
[2016-11-20] MEDS ORDERED: NS IV 1000 ML 1,000 ML IV SCH (23:00)
[2016-11-21] VITALS (16 sets, daily range): BP systolic 105–143; BP diastolic 41–83
[2016-11-21] MEDS: meTOprolol 5 MG/5 ML (LOPRESSOR) VIAL IVP SCH ×4 (00:02→12:45)
[2016-11-21] MEDS ORDERED: SODIUM BICARB 8.4% 50 MEQ/50 ML (ABBOTT) SYR ONE (00:58)
[2016-11-21] MEDS ORDERED: ALBUMIN 5% 12.5 GM/250 ML 500 ML IV ONE ×2 (01:27→01:45)
[2016-11-21 01:28] LABS: ALBUMIN 2.6 GM/DL (3.2-4.5); ANION GAP 9 MMOL/L (5-14); BLOOD UREA NITROGEN 27 MG/DL (7-18); BUN/CREATININE RATIO 18; CALCIUM 7.1 MG/DL (8.5-10.1); CARBON DIOXIDE 16 MMOL/L (21-32); CHLORIDE 112 MMOL/L (98-107); CREATININE SERUM 1.47 MG/DL (0.60-1.30); GFR ESTIMATED 34; GLUCOSE 97 MG/DL (70-105); MAGNESIUM 1.7 MG/DL (1.8-2.4); POTASSIUM 4.4 MMOL/L (3.6-5.0); SODIUM 137 MMOL/L (135-145)
[2016-11-21 01:35] LABS: TROPONIN I < 0.30 NG/ML (<0.30)
[2016-11-21] MEDS ORDERED: SODIUM BICARB 8.4% 50 MEQ/50 ML (ABBOTT) SYR IV ONE (01:45)
[2016-11-21] MEDS ORDERED: meTOprolol 5 MG/5 ML (LOPRESSOR) VIAL IV ONE (01:45)
[2016-11-21] MEDS ORDERED: ALBUMIN 5% 12.5 GM/250 ML 250 ML IV ONE ×2 (02:15→02:45)
[2016-11-21] MEDS ORDERED: AMIODARONE FOR BOLUS 150 MG in D5W 100 ML IVPB 100 ML IV ONE (03:15)
[2016-11-21] MEDS: MAGNESIUM 1 GM/D5W 100 ML IVPB IV SCH ×2 (03:22→04:10)
[2016-11-21] MEDS: NS IV 1000 ML 1,000 ML IV SCH ×4 (03:25→18:19)
[2016-11-21] MEDS ORDERED: CALCIUM GLUC. 10% 4.65 MEQ/10 ML VIAL IV ONE (03:45)
[2016-11-21 04:38] LABS: BASOPHILS % (AUTO) 0 % (0-10); EOSINOPHILS % (AUTO) 0 % (0-10); LYMPHOCYTES # (AUTO) 0.5 X 10^3 (1.0-4.0); LYMPHOCYTES % (AUTO) 3 % (12-44); MEAN CORPUSCULAR HEMOGLOBIN 28 PG (25-34); MEAN CORPUSCULAR HGB CONC 31 G/DL (32-36); MEAN CORPUSCULAR VOLUME 91 FL (80-99); MEAN PLATELET VOLUME 10.2 FL (7.4-10.4); MONOCYTES # (AUTO) 0.4 X 10^3 (0.0-1.0); MONOCYTES % (AUTO) 3 % (0-12); NEUTROPHILS # (AUTO) 14.2 X 10^3 (1.8-7.8); NEUTROPHILS % (AUTO) 94 % (42-75); PLATELET COUNT 146 10^3/uL (130-400); RED BLOOD COUNT 3.13 10^6/uL (4.35-5.85); RED CELL DISTRIBUTION WIDTH 18.3 % (10.0-14.5); WHITE BLOOD COUNT 15.1 10^3/uL (4.3-11.0)
[2016-11-21 04:50] LABS: CALCIUM 6.9 MG/DL (8.5-10.1); CREATININE SERUM 1.39 MG/DL (0.60-1.30); MAGNESIUM 2.4 MG/DL (1.8-2.4); PHOSPHORUS 3.3 MG/DL (2.3-4.7); POTASSIUM 4.2 MMOL/L (3.6-5.0)
[2016-11-21] MEDS: POTASSIUM CL 10MEQ/50ML IVPB 50 ML IV SCH (05:38)
[2016-11-21] MEDS: KCL 20 MEQ TAB (K-DUR) PO SCH (05:38)
[2016-11-21] MEDS: MAGNESIUM 1 GM/100 ML IVPB 100 ML IV SCH (05:39)
[2016-11-21] MEDS ORDERED: NS IV 500 ML 500 ML ONE (08:28)
[2016-11-21] MEDS: RT-ALBUTEROL SULF 2.5 MG/3 ML PRE-MIX VIAL INH SCH ×4 (08:28→19:03)
[2016-11-21] MEDS: PANTOPRAZOLE 40 MG/10 ML (PROTONIX) VIAL IV SCH (08:37)
[2016-11-21] MEDS: ENOXAPARIN 30 MG/0.3 ML (LOVENOX) SYR SC SCH ×2 (08:37→20:44)
[2016-11-21] MEDS: SENNA W/DOCUSATE (SENOKOT S) TABLET PO SCH (08:40)
[2016-11-21] MEDS: morphine PCA 30 MG/30 ML VIAL IV PRN (08:46)
--- NOTE | 2016-11-21 11:11 | Diagnostic Imaging Report ---
Indication: Postop colon resection. Frontal chest obtained at 2:55 hours a.m. and compared with yesterday. The heart is borderline in size. There is atelectatic change versus infiltrate in the left midlung and base as well as in the right medial base. There is no pneumothorax or pleural fluid. NG tube tip is unchanged, partially looped in the proximal stomach. Left subclavian central catheter is unchanged. IMPRESSION: Unchanged bibasilar and left midlung infiltrate versus atelectasis. No pneumothorax or pleural fluid. NG tube remains looped in proximal stomach with tip near the GE junction. Dictated by: Dictated on workstation # [id number]
--- NOTE | 2016-11-21 12:40 | Progress Note-Standard ---
Standard Progress Note Progress Notes/Assess & Plan Date Seen by Provider: Nov 21, 2016 Time Seen by Provider: 12:39 Progress/Assessment & Plan slight improvement in her overall condition. Temperature 99.5. Hemoglobin decreased to 8.9. Creatinine elevated but trending down. Very minimal output from the nasogastric tube and I have removed it. Incisions dry. Has not passed flatus. Encouraged using incentive spirometry. 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 TU HODGES MD Nov 21, 2016 12:40 pm
[2016-11-21] MEDS: meTOprolol SUCCINATE 100 MG (TOPROL XL) TAB PO SCH (20:44)
[2016-11-21] MEDS: MONTELUKAST 10 MG (SINGULAIR) TAB PO SCH (20:44)
[2016-11-21] MEDS: ACETAMINOPHEN 500 MG TAB (TYLENOL) PO PRN (20:59)
[2016-11-22] VITALS (24 sets, daily range): BP systolic 112–143; BP diastolic 48–71
[2016-11-22] MEDS: ONDANSETRON 4 MG/2 ML (SDV) Z0FRAN IVP PRN ×2 (00:05→06:07)
[2016-11-22] MEDS: NS IV 1000 ML 1,000 ML IV SCH (02:16)
[2016-11-22 04:46] LABS: BASOPHILS % (AUTO) 0 % (0-10); EOSINOPHILS % (AUTO) 0 % (0-10); LYMPHOCYTES # (AUTO) 0.7 X 10^3 (1.0-4.0); LYMPHOCYTES % (AUTO) 4 % (12-44); MEAN CORPUSCULAR HEMOGLOBIN 28 PG (25-34); MEAN CORPUSCULAR HGB CONC 30 G/DL (32-36); MEAN CORPUSCULAR VOLUME 93 FL (80-99); MEAN PLATELET VOLUME 10.5 FL (7.4-10.4); MONOCYTES # (AUTO) 0.5 X 10^3 (0.0-1.0); MONOCYTES % (AUTO) 3 % (0-12); NEUTROPHILS # (AUTO) 14.8 X 10^3 (1.8-7.8); NEUTROPHILS % (AUTO) 93 % (42-75); PLATELET COUNT 160 10^3/uL (130-400); RED BLOOD COUNT 3.26 10^6/uL (4.35-5.85)
[2016-11-22 05:07] LABS: CALCIUM 7.9 MG/DL (8.5-10.1); CREATININE SERUM 1.02 MG/DL (0.60-1.30); MAGNESIUM 2.2 MG/DL (1.8-2.4); PHOSPHORUS 3.5 MG/DL (2.3-4.7); POTASSIUM 4.2 MMOL/L (3.6-5.0)
[2016-11-22 06:00] LABS: ABG BASE EXCESS -11.6 MMOL/L (-2.5-2.5); ABG OXYGEN SATURATION 99 % (94-100); ABG PCO2 45 MMHG (35-45); ABG PO2 126 MMHG (79-93); ABG TCO2 16.7 MMOL/L (21.0-31.0)
[2016-11-22 06:02] LABS: ABG HCO3 15 MMOL/L (23-27); ABG PH 7.16 (7.37-7.43); ALLENS TEST NOT NEEDED
[2016-11-22 06:03] LABS: PATIENT TEMP 98.9
[2016-11-22] MEDS: KCL 20 MEQ TAB (K-DUR) PO SCH (06:16)
[2016-11-22] MEDS: POTASSIUM CL 10MEQ/50ML IVPB 50 ML IV SCH (06:16)
[2016-11-22] MEDS: MAGNESIUM 1 GM/100 ML IVPB 100 ML IV SCH (06:16)
[2016-11-22] MEDS: RT-ALBUTEROL SULF 2.5 MG/3 ML PRE-MIX VIAL INH SCH ×4 (06:28→18:40)
[2016-11-22 07:20] LABS: BILIRUBIN,URINE NEGATIVE (NEGATIVE); KETONES,URINE 4+ (NEGATIVE); LEUKOCYTE ESTERASE ,URINE 3+ (NEGATIVE); NITRITE,URINE POSITIVE (NEGATIVE); PH,URINE 5 (5-9); POTASSIUM URINE RANDOM 66 MMOL/L (25-125); PROTEIN,URINE 3+ (NEGATIVE); UROBILINOGEN,URINE NORMAL (NORMAL)
[2016-11-22 07:21] LABS: WBC,URINE 25-50 /HPF
[2016-11-22] MEDS: ENOXAPARIN 30 MG/0.3 ML (LOVENOX) SYR SC SCH ×2 (08:32→20:03)
[2016-11-22] MEDS: SENNA W/DOCUSATE (SENOKOT S) TABLET PO SCH (08:32)
[2016-11-22] MEDS: PANTOPRAZOLE 40 MG/10 ML (PROTONIX) VIAL IV SCH (08:32)
[2016-11-22] MEDS: amLODIPine 5 MG (NORVASC) TAB PO SCH (08:32)
[2016-11-22] MEDS: meTOprolol SUCCINATE 100 MG (TOPROL XL) TAB PO SCH ×2 (08:32→20:03)
[2016-11-22] MEDS: SODIUM BICARBONATE 8.4% VIAL 100 MEQ in WATER FOR INJECTION, STERILE 1,000 ML IV SCH ×2 (08:33→18:04)
--- NOTE | 2016-11-22 13:12 | Progress Note-Hospitalist ---
Subjective HPI/CC On Admission Date Seen by Provider: Nov 22, 2016 Time Seen by Provider: 12:54 CC: Medical management following colon cancer resection? HPI: This is an 81 [address] of [address] Max who presented following uncomplicated right luli-colectomy for colon ca. She is stable since surgery; BP stable, WBC 13.1 , Hgb 12.5, Creat1.24 Dr. Cardoso Review: Pt is doing well Patient Interview: Pt confirms Dr. Max as PCP Pt states her pain is okay as long as she is laying down Labs were discussed and pt asked about her Hgb, which looks good. Pt's BP looks okay Physical exam stable Pt believes she is breathing okay. Pt denies having home O2 and denies smoking Pt states she works at [employer] at the [place] [facility] and she has worked there for 1 yr. 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 Centeno. Subjective/Events-last exam Mrs. Miramontes reports feeling little better today. It was easier for her to get to the chair or I found her. She was sleeping with normal respiration no evidence for apnea on O2 maintaining saturations 100 percent. She was awake and alert reporting no shortness of breath or chest pain. She'll reports expected amount of incisional pain with movement as long she is still she denies cramping and denies chills. Objective Exam Vital Signs Vital Sign - Last 12Hours 11/19/16 11/19/16 10:48 17:15 Temp 98.0 Pulse 65 Resp 16 B/P (MAP) 142/71 Pulse Ox 96 O2 Delivery Room Air O2 Flow Rate 4.00 Capillary Refill : General Appearance: No Apparent Distress, Obese Respiratory: Chest Non Tender, Lungs Clear, Normal Breath Sounds, No Accessory Muscle Use, No Respiratory Distress Cardiovascular: Regular Rate, Rhythm, No Edema, No Gallop, No JVD, No Murmur, Normal Peripheral Pulses Gastrointestinal: Soft, Other (some hypoactive bowel sounds noted.) Results/Procedures Lab Laboratory Tests 11/22/16 04:15 Assessment/Plan Assessment and Plan Assess & Plan/Chief Complaint 1. Postop day 2 status post right hemicolectomy for adenocarcinoma of the colon. 2. This morning's BMP is compatible with metabolic acidosis however patient's renal function is improved with no documented hypotension no evidence for any more to distress and what would be expected on postop day 2 for hemicolectomy an 81-year-old. She's also had no evidence for hypoxia so I'm certainly concerned about lab error we are repeating the lab. If there is worsening of acidosis will initiate a bicarbonate drip and would continue to monitor in the intensive care unit. SUAD CASE MD Nov 22, 2016 13:12
[2016-11-22 13:24] LABS: CREATININE SERUM 1.03 MG/DL (0.60-1.30); POTASSIUM 4.3 MMOL/L (3.6-5.0)
--- NOTE | 2016-11-22 16:19 | Progress Note-Standard ---
Standard Progress Note Progress Notes/Assess & Plan Date Seen by Provider: Nov 22, 2016 Time Seen by Provider: 15:20 Progress/Assessment & Plan slight improvement in her overall condition. Temperature 99.5. Hemoglobin decreased to 8.9. Creatinine elevated but trending down. Very minimal output from the nasogastric tube and I have removed it. Incisions dry. Has not passed flatus. Encouraged using incentive spirometry. Will possibly resume most of her home medications poor motivation with incentive spirometry. Afebrile. White cell count slightly elevated. Erythema around the specimen extraction site on the right lower quadrant possibly can to get into leukocytosis. Has not passed flatus. Final Diagnosis carcinoma of transverse colon. Postoperative ileus TU HODGES MD Nov 22, 2016 4:19 pm
[2016-11-22] MEDS: METOCLOPRAMIDE INJ 10 MG/2 ML (REGLAN) IVP SCH (18:06)
[2016-11-22] MEDS: MONTELUKAST 10 MG (SINGULAIR) TAB PO SCH (20:02)
[2016-11-22] MEDS: oxyCODONE 20 MG/1 ML ORAL CONC (RoxiCODONE) CHARGE PER 1 ML PO PRN (20:18)
[2016-11-23] VITALS (24 sets, daily range): BP systolic 111–149; BP diastolic 9–83
[2016-11-23] MEDS: METOCLOPRAMIDE INJ 10 MG/2 ML (REGLAN) IVP SCH ×4 (00:35→17:01)
[2016-11-23] MEDS ORDERED: LACTATED RINGERS 1,000 ML IV ONE ×2 (01:45→06:15)
[2016-11-23] MEDS: SODIUM BICARBONATE 8.4% VIAL 100 MEQ in WATER FOR INJECTION, STERILE 1,000 ML IV SCH ×3 (01:54→20:29)
[2016-11-23 02:04] LABS: BASOPHILS % (AUTO) 0 % (0-10); EOSINOPHILS # (AUTO) 0.1 10^3/uL (0.0-0.3); EOSINOPHILS % (AUTO) 1 % (0-10); LYMPHOCYTES # (AUTO) 0.9 X 10^3 (1.0-4.0); LYMPHOCYTES % (AUTO) 6 % (12-44); MEAN CORPUSCULAR HEMOGLOBIN 29 PG (25-34); MEAN CORPUSCULAR HGB CONC 32 G/DL (32-36); MEAN CORPUSCULAR VOLUME 90 FL (80-99); MONOCYTES # (AUTO) 0.5 X 10^3 (0.0-1.0); MONOCYTES % (AUTO) 3 % (0-12); NEUTROPHILS # (AUTO) 14.2 X 10^3 (1.8-7.8); NEUTROPHILS % (AUTO) 91 % (42-75); PLATELET COUNT 162 10^3/uL (130-400); RED BLOOD COUNT 3.11 10^6/uL (4.35-5.85); RED CELL DISTRIBUTION WIDTH 18.8 % (10.0-14.5); WHITE BLOOD COUNT 15.7 10^3/uL (4.3-11.0)
[2016-11-23 02:21] LABS: CALCIUM 7.7 MG/DL (8.5-10.1); CREATININE SERUM 0.92 MG/DL (0.60-1.30); MAGNESIUM 2.1 MG/DL (1.8-2.4); PHOSPHORUS 2.2 MG/DL (2.3-4.7); POTASSIUM 3.7 MMOL/L (3.6-5.0)
[2016-11-23] MEDS: KCL 20 MEQ TAB (K-DUR) PO SCH (05:32)
[2016-11-23] MEDS: POTASSIUM CL 10MEQ/50ML IVPB 50 ML IV SCH (05:32)
[2016-11-23] MEDS: MAGNESIUM 1 GM/100 ML IVPB 100 ML IV SCH (05:32)
--- NOTE | 2016-11-23 05:46 | Pulmonary Progress Note ---
Subjective Time Seen by Provider: 05:43 Subjective/Events-last exam C/o abd distension and mild abd pain Exam Exam Vital Signs Date Time Temp Pulse Resp B/P (MAP) Pulse Ox O2 Delivery O2 Flow Rate FiO2 11/23/16 04:00 82 12 125/59 94 Room Air 11/23/16 04:00 95 Room Air 11/23/16 03:59 97.0 Room Air 11/23/16 03:00 79 13 118/55 97 Room Air 11/23/16 02:00 82 17 131/68 98 Room Air 11/23/16 01:00 82 14 138/69 94 Room Air 11/23/16 01:00 78 11/23/16 00:00 74 10 111/51 100 Room Air 11/23/16 00:00 95 Nasal Cannula 1.00 11/22/16 23:00 76 11 120/53 99 Room Air 11/22/16 22:00 75 11 129/54 96 Room Air 11/22/16 21:00 77 14 125/58 97 Room Air 11/22/16 20:00 77 17 119/61 Room Air 11/22/16 20:00 95 Nasal Cannula 1.00 11/22/16 19:30 98.6 Room Air 11/22/16 19:00 72 11/22/16 19:00 74 18 127/63 96 Room Air 11/22/16 18:40 98 Nasal Cannula 1.50 11/22/16 18:00 75 30 123/57 100 Room Air 11/22/16 17:00 93 22 118/54 96 Nasal Cannula 2.00 11/22/16 16:44 95 Room Air 11/22/16 16:00 76 18 128/68 97 Nasal Cannula 2.00 11/22/16 15:00 71 10 118/53 97 Nasal Cannula 2.00 11/22/16 14:08 95 Nasal Cannula 1.50 11/22/16 14:00 77 13 121/62 95 Nasal Cannula 2.00 11/22/16 13:00 73 11/22/16 13:00 72 15 117/64 95 Nasal Cannula 2.00 11/22/16 12:55 97.6 Nasal Cannula 2.00 11/22/16 12:55 95 Nasal Cannula 2.00 11/22/16 12:00 74 15 112/71 98 Nasal Cannula 2.00 11/22/16 11:24 97 Nasal Cannula 3.00 11/22/16 11:00 75 25 116/54 97 Nasal Cannula 2.00 11/22/16 10:00 85 13 140/63 92 Nasal Cannula 2.00 11/22/16 09:00 89 13 141/54 92 Nasal Cannula 2.00 11/22/16 08:45 95 Nasal Cannula 2.00 11/22/16 08:00 98.7 Nasal Cannula 2.00 11/22/16 08:00 87 21 136/54 94 Nasal Cannula 2.00 11/22/16 07:00 87 11 135/48 96 Nasal Cannula 2.00 11/22/16 07:00 14 11/22/16 07:00 90 11/22/16 06:28 95 Nasal Cannula 3.00 11/22/16 06:00 98.9 11/22/16 06:00 94 14 129/62 92 Nasal Cannula 2.00 General Appearance: No Apparent Distress, Obese HEENT: PERRL/EOMI Neck: Full Range of Motion Respiratory: Chest Non Tender, Lungs Clear, Normal Breath Sounds, No Accessory Muscle Use, No Respiratory Distress Cardiovascular: Regular Rate, Rhythm, No Edema, No Gallop, No JVD, No Murmur, Normal Peripheral Pulses Gastrointestinal: soft, distended, No guarding, No rebound, tenderness Extremity: Normal Capillary Refill Neurologic/Psychiatric: Alert, Oriented x3 Skin: Normal Color Lymphatic: No Adenopathy Results Lab Laboratory Tests 11/22/16 04:15 11/22/16 12:55 11/23/16 01:57 Assessment/Plan Assessment/Plan s/p right hemicolectomy POD #4 -pain control Adenocarcinoma of right colon -Clindamycin, and Flagyl currently Persistent leukocytosis POD#4 -Consider Ct abd/pelvis r/o abscess -Pt develops hives with IV contrast -Check KUB -Culture ROSA drain output -mims culture -Start merrem and vanco and mims culture -- Pt has multiple abx allergies Metabolic acidosis -bicarb gtt Atelectasis r/o PNA - Doubt pneumonia -IS -SVNs-- change to easy PAP Intravascular dehydration with decreased UO -Bicarb with Steril water at 100cc/hr -Will give 500NS bolus secondary to decreased UO -Will give 25gms of albumin -Monitor UO 233 MONE GRIFFIN DO Nov 23, 2016 05:46
[2016-11-23] MEDS ORDERED: ALBUMIN 25% 25 GM/100 ML 100 ML IV ONE (06:00)
[2016-11-23] MEDS ORDERED: PHARMACY TO DOSE IV SCH (06:15)
[2016-11-23] MEDS: RT-ALBUTEROL SULF 2.5 MG/3 ML PRE-MIX VIAL INH SCH (06:46)
[2016-11-23 06:49] LABS: BILIRUBIN,URINE NEGATIVE (NEGATIVE); KETONES,URINE 3+ (NEGATIVE); LEUKOCYTE ESTERASE ,URINE 3+ (NEGATIVE); NITRITE,URINE POSITIVE (NEGATIVE); PH,URINE 5 (5-9); PROTEIN,URINE 3+ (NEGATIVE); UROBILINOGEN,URINE NORMAL (NORMAL)
[2016-11-23] MEDS: MEROPENEM 500 MG in NS (IVPB) 100 ML IV SCH ×3 (07:00→17:01)
[2016-11-23] MEDS ORDERED: VANCOMYCIN 1500 MG/NS 500 ML IVPB IV NR ×2 (07:30)
--- NOTE | 2016-11-23 07:33 | Progress Note-Hospitalist ---
Subjective HPI/CC On Admission Date Seen by Provider: Nov 23, 2016 (n) Time Seen by Provider: 07:27 CC: Medical management following colon cancer resection? HPI: This is an 81 yo[address] of [address] Max who presented following uncomplicated right luli-colectomy for colon ca. She is stable since surgery; BP stable, WBC 13.1 , Hgb 12.5, Creat1.24 Dr. Cardoso Review: Pt is doing well Patient Interview: Pt confirms Dr. Max as PCP Pt states her pain is okay as long as she is laying down Labs were discussed and pt asked about her Hgb, which looks good. Pt's BP looks okay Physical exam stable Pt believes she is breathing okay. Pt denies having home O2 and denies smoking Pt states she works at [employer] at the [place] [facility] and she has worked there for 1 yr. 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 Centeno. Subjective/Events-last exam Reports feeling okay today. No specific complaints. Hoping for a good day today. Objective Exam Vital Signs Vital Sign - Last 12Hours 11/19/16 11/19/16 10:48 17:15 Temp 98.0 Pulse 65 Resp 16 B/P (MAP) 142/71 Pulse Ox 96 O2 Delivery Room Air O2 Flow Rate 4.00 Capillary Refill : General Appearance: No Apparent Distress, WD/WN Respiratory: No Accessory Muscle Use, No Respiratory Distress, Wheezing Cardiovascular: Regular Rate, Rhythm, No Edema, No Murmur Gastrointestinal: Soft, Distended (slight), Tenderness (near surgical sites), Other (surgical sites well healing, c/d/i with jasbir in place) Extremity: Normal Capillary Refill Neurologic/Psychiatric: Alert, Oriented x3 Results/Procedures Lab Laboratory Tests 11/22/16 12:55 11/23/16 01:57 Assessment/Plan Assessment and Plan Assess & Plan/Chief Complaint 1. POD #3 status post right hemicolectomy for adenocarcinoma of the colon per Dr. Gaston 2. [place] metabolic acidosis, improving today but on bicarb gtt - Continue to monitor labs for improvement 3. Oliguria- Has had minimal urine output and metabolic acidosis despite improving creatinine. Will continue Bicarb gtt and follow outcome from NS bolus per Dr Dunaway 4. Leukocytosis- continue on abx, Flagyl, Clinda, Merrem, and Vanc. Last Fever . Will follow up KUB and mims cultures collected today 5. Asthma- reports history of asthma, wheezing today. Will start MAT protocol if not already started 6. Normocytic anemia- stable around 9. has been as low as 6.1 1 month ago, trend PONCHO CHRISTOPHER MD Nov 23, 2016 07:33
[2016-11-23] MEDS: SENNA W/DOCUSATE (SENOKOT S) TABLET PO SCH (07:57)
[2016-11-23] MEDS: amLODIPine 5 MG (NORVASC) TAB PO SCH (07:57)
[2016-11-23] MEDS: ENOXAPARIN 30 MG/0.3 ML (LOVENOX) SYR SC SCH ×2 (07:57→20:29)
[2016-11-23] MEDS: meTOprolol SUCCINATE 100 MG (TOPROL XL) TAB PO SCH ×2 (07:57→20:29)
[2016-11-23] MEDS: PANTOPRAZOLE 40 MG/10 ML (PROTONIX) VIAL IV SCH (07:57)
--- NOTE | 2016-11-23 08:16 | Diagnostic Imaging Report ---
INDICATION: Postop colon resection KUB obtained at 6:09 a.m. There are surgical jasbir over the lower abdomen. There is a drain in the right lower quadrant. There is no unexpected foreign body post surgery. There is moderate gaseous distention of small bowel loops. IMPRESSION: Moderate gaseous distention of small bowel loops. Surgical drain in right-sided abdomen. No unexpected foreign body postsurgery. Dictated by: Dictated on workstation # [id number]
--- NOTE | 2016-11-23 09:09 | Diagnostic Imaging Report ---
INDICATION: Postop colon resection. TECHNIQUE: Single view chest at 4:57 AM. CORRELATION STUDY: 11/21/2016. FINDINGS: The gastric tube has been removed. The left-sided central line tip is over the paramediastinal region, unchanged. The heart size is enlarged. The vasculature is slightly prominent without evidence for overt failure. There is a limited depth of inspiration. There are areas of atelectasis or less likely developing infiltrates in the right lung base. There are probable small effusions. The previously noted infiltrate in the left midlung has essentially resolved. IMPRESSION: 1. Right basilar atelectasis or infiltrate, slightly more prominent from the prior study. Resolution of the previously noted left mid lung atelectasis and/or infiltrate. 2. Removal of the gastric tube. Dictated by: Dictated on workstation # [id number]
[2016-11-23] MEDS: RT-ALBUTEROL SULF 2.5 MG/3 ML PRE-MIX VIAL IH SCH ×4 (10:12→21:29)
[2016-11-23] MEDS: ACETAMINOPHEN 500 MG TAB (TYLENOL) PO PRN (12:41)
--- NOTE | 2016-11-23 13:51 | Occupational Therapy Eval ---
OT Evaluation-General/PLF Medical Diagnosis Admission Date Nov 19, 2016 at 10:06 Medical Diagnosis: Colon Cancer Onset Date: Nov 19, 2016 Therapy Diagnosis Therapy Diagnosis: decr self care, decr funct mobility, weakness, edema, decr act shakeel Height/Weight Height (Feet): 5 Height (Inches): 2.00 Weight (Pounds): 174 Weight (Ounces): 0.0 Precautions Precautions/Isolations: Fall Prevention, Standard Precautions Safety Interventions: None Referral Physician: Janae Referral Reason: Evaluation/Treatment Medical History Pertinent Medical History: Atrial Fib, Arthritis, HTN Additional Medical History Diverticulosis, asthma, chronic bronchitis, L foot surgery 2010, lymphedema both legs, cataracts Current History Laparoscopic R hemicolectomy 11-19-16, with post op ilius. Reviewed History: Yes Social History Home: Single Level Current Living Status: Alone Entry Into Home: Stairs With Railing (one side) Steps Into Home: 3 Steps Inside Home: 1 ADL-Prior Level of Function ADL PLOF Comments Pt reported that she has been independent with basic self care. 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 Pain reported 9/10 when she is moving but she is "OK" in recliner Appearance Alert, cooperative Mental Status/Objective Attachments: Central Line, Drains, Arce Catheter, Oxygen, Telemetry Current Glasses/Contacts: Yes Hand Dominance: Right Upper Extremity ROM Grossly WFL bilat. Arthritic changes noted in hands. Upper Extremity Strength Grossly 3+/5 throughout bilat. Pt reported she heard a "pop" in R shoulder about 3 weeks ago and said movement was affected but her ROM was WFL Edema: +2 edema bilat hands, easily mobilized ADL-Treatment ADL-Current Pt has not had BM and has arce. She said NG tube pulled yesterday and she has taken a few bites of jello but is not hungry. Functional [place] Measure 0=Not Assessed/NA 4=Minimal Assistance 1=Total Assistance 5=Supervision or Setup 2=Maximal Assistance 6=Modified [place] 3=Moderate Assistance 7=Complete IndependenceIRFPAI Quality Coding Scale 6 Independent with activity with or without an assistive device 5 Patient requires set up or clean up by helper. Patient completes activity by themselves 4 Supervision or touching assist (CGA). [place] provide cues , steadying assist 3 The helper provides less than half the effort to complete the activity 2 The helper provides more than half the effort to complete the activity 1 Dependent. The helper does all the effort to complete an activity 7 Patient refused to complete or attempt activity 9 The patient did not perform the activity before the current illness or injury 88 Not attempted due to Medical conditions or safety concerns Education OT Patient Education: Purpose of tx/functional activities, Rehab process Teaching Recipient: Patient Teaching Methods: Discussion Response to Teaching: Verbalize Understanding OT Refrigeration Plant Operator Goals Refrigeration Plant Operator Goals Time Frame: Dec 11, 2016 Eating (FIM): 6 Grooming(FIM): 6 Bathing(FIM): 5 Upper Body Dressing(FIM): 5 Lower Body Dressing(FIM): 5 Toileting(FIM): 6 Toilet/Commode Transfer(FIM): 6 Shower Transfer(FIM): 5 Additional Goals: 2-Verbalize Understanding, 3-ImproveStrength/Shari 1=Demonstrate adherence to instructed precautions during ADL tasks. 2=Patient will verbalize/demonstrate understanding of assistive devices/ modifications for ADL. 3=Patient will improve strength/tolerance for activity to enable patient to perform ADL's. OT Education/Plan Problem List/Assessment Assessment: Decreased Activ Tolerance, Decreased UE Strength, Dependent Transfers, Edema, Impaired Funct Balance, Impaired Self-Care Skills, Restricted Funct UE ROM (per pt report) Pt would benefit from skilled OT to increase her independence in basic self care to allow her to safely return to her home and to decrease caregiver burden Discharge Recommendations Plan/Recommendations: Continue POC Therapy D/C Recommendations: Acute Rehab Barriers to Progress edema Treatment Plan/Plan of Care Treatment,Training & Education: Yes Patient would benefit from OT for education, treatment and training to promote independence in ADL's, mobility, safety and/or upper extremity function for ADL' s. Plan of Care: ADL Retraining, Functional Mobility, UE Funct Exercise/Act, UE Neuromus Re-Ed/Coord Treatment Duration: Dec 11, 2016 Frequency: 5 times per week Estimated Hrs Per Day: .5 hour per day Agreement: Yes Rehab Potential: Good Time/GCodes Start Time: 13:20 Stop Time: 13:35 Total Time Billed (hr/min): 15 Billed Treatment Time visit, 15 minutes high intensity evaluation AUSTEN PISANO OT Nov 23, 2016 13:51
--- NOTE | 2016-11-23 14:29 | Physical Therapy Evaluation ---
PT Evaluation-General Medical Diagnosis Admission Date Nov 19, 2016 at 10:06 Medical Diagnosis: Colon Cancer Onset Date: Nov 19, 2016 Therapy Diagnosis Therapy Diagnosis: generalized weakness/debility Height/Weight Height (Feet): 5 Height (Inches): 2.00 Weight (Pounds): 174 Weight (Ounces): 0.0 Precautions Precautions/Isolations: Fall Prevention, Standard Precautions Referral Physician: Janae Reason for Referral: Evaluation/Treatment Medical History Pertinent Medical History: Atrial Fib, Arthritis, HTN Additional Medical History s/p colon resection Current History blood in stool Reviewed History: Yes Social History Home: Single Level Current Living Status: Alone Entry Into Home: Stairs With Railing (one side) PT Steps Into Home: 3 PT Steps Inside Home: 1 Prior/Core FIM Prior Level of Function Functional [place] Measure 0=Not Assessed/NA 4=Minimal Assistance 1=Total Assistance 5=Supervision or Setup 2=Maximal Assistance 6=Modified [place] 3=Moderate Assistance 7=Complete [place] Bed Mobility: 7 Transfers (B,C,W/C) (FIM): 7 Gait: 7 PT Evaluation-Current Subjective Patient agrees to PT. She states she is very weak. Pain Numeric Pain Scale: 5-Moderate Pain Location: Lower Location Body Site: Abdomen Pain Description: Pressure, Acute Objective Patient Orientation: Normal For Age Problem Solving: Good Attachments: Oxygen, Drains, Nelson Catheter, IV ROM/Strength ROM Lower Extremities bilateral LE limited due to edema Strenght Lower Extremities 3-/5 grossly bilateral LE Integumentary/Posture Integumentary refer to nursing notes Bladder Incontinence: Nelson Cath Posture trunk flexed posture in stand/difficulty standing erect due to abdominal pain/ pressure Neuromuscular (Tone, Coordination, Reflexes) grossly intact Sensory Vision: Wears Glasses Hearing: Functional Hand Dominance: Right Sensation Right Lower Extremit: Intact Sensation Left Lower Extremity: Intact Transfers Functional [place] Measure 0=Not Assessed/NA 4=Minimal Assistance 1=Total Assistance 5=Supervision or Setup 2=Maximal Assistance 6=Modified [place] 3=Moderate Assistance 7=Complete [place] Transfers (B, C, W/C) (FIM): 3 Rollin Supine to/from Sit: 3 Sit to/from Stand: 3 bed t/f WC(FIM only if WC use): 3 Gait Mode of Locomotion: Walk Anticipated Mode of Locomotion: Walk Balance Sitting Static: Fair Sitting Dynamic: Fair Standing Static: Fair Standing Dynamic: Fair Assessment/Needs 81 y.o. female, will benefit from skilled PT to address functional strength and mobility to improve current LOF and to safely return to home at maximum LOF. Rehab Potential: Good PT [facility] Goals Core Composer Machine Tender Goals PT Core Composer Machine Tender Goals Time Frame: Dec 11, 2016 Transfers (B,C,W/C) (FIM): 6 Gait (FIM): 6 Gait distance (FIM): 3=150 ft Gait Level of Assist: 6 Gait Assistive Device: FWW PT Plan Problem List Problem List: Activity Tolerance, Functional Strength, Safety, Balance, Gait, Transfer, Bed Mobility Treatment/Plan Treatment Plan: Continue Plan of Care Treatment Plan: Bed Mobility, Education, Functional Activity Shari, Functional Strength, Gait, Safety, Therapeutic Exercise, Transfers Treatment Duration: Dec 11, 2016 Frequency: 6 times per week Estimated Hrs Per Day: .5 hour per day (or PRN) Patient and/or Family Agrees t: Yes Safety Risks/Education Patient Education: Safety Issues Teaching Recipient: Patient Teaching Methods: Discussion Response to Teaching: Verbalize Understanding Discharge Recommendations Therapy D/C Recommendations: Acute Rehab Time/GCodes Time In: 1330 Time Out: 1350 Total Billed Treatment Time: 20 Total Billed Treatment 1 visit EVModC 20 min G Codes Necessary: MICHELLE Sahu PT Nov 23, 2016 14:29
--- NOTE | 2016-11-23 17:23 | Progress Note (SOAP) ---
Subjective Date Seen by Provider: Nov 23, 2016 Time Seen by Provider: 17:15 Subjective/Events-last exam doing ok. has bowel sounds but no bowel function yet. improving urine output and creatinine. pain controlled. Objective Exam Vital Signs Date Time Temp Pulse Resp B/P (MAP) Pulse Ox O2 Delivery O2 Flow Rate FiO2 11/23/16 16:00 100.0 89 20 133/9 94 Nasal Cannula 2.00 11/23/16 16:00 94 Room Air 11/23/16 15:16 99.0 11/23/16 14:29 Nasal Cannula 2.50 11/23/16 13:00 93 11/23/16 12:41 101.0 11/23/16 12:00 100 Room Air 11/23/16 12:00 101.2 11/23/16 10:21 Nasal Cannula 2.00 11/23/16 09:00 105 17 130/77 100 Nasal Cannula 11/23/16 08:00 100 Room Air 11/23/16 08:00 110 19 135/70 100 Nasal Cannula 11/23/16 07:00 100.0 85 15 149/67 98 Nasal Cannula 2.00 11/23/16 07:00 93 11/23/16 06:50 Nasal Cannula 0.50 11/23/16 06:00 87 14 149/67 97 Room Air 11/23/16 05:00 86 18 141/66 100 Room Air 11/23/16 04:00 82 12 125/59 94 Room Air 11/23/16 04:00 95 Room Air 11/23/16 03:59 97.0 Room Air 11/23/16 03:00 79 13 118/55 97 Room Air 11/23/16 02:00 82 17 131/68 98 Room Air 11/23/16 01:00 82 14 138/69 94 Room Air 11/23/16 01:00 78 11/23/16 00:00 74 10 111/51 100 Room Air 11/23/16 00:00 95 Nasal Cannula 1.00 11/22/16 23:00 76 11 120/53 99 Room Air 11/22/16 22:00 75 11 129/54 96 Room Air 11/22/16 21:00 77 14 125/58 97 Room Air 11/22/16 20:00 77 17 119/61 Room Air 11/22/16 20:00 95 Nasal Cannula 1.00 11/22/16 19:30 98.6 Room Air 11/22/16 19:00 72 11/22/16 19:00 74 18 127/63 96 Room Air 11/22/16 18:40 98 Nasal Cannula 1.50 11/22/16 18:00 75 30 123/57 100 Room Air I & O 11/24/16 07:00 Intake Total 690 ml Output Total 915 ml Balance -225 ml Capillary Refill : General Appearance: No Apparent Distress HEENT: PERRL/EOMI Neck: Full Range of Motion Respiratory: Rhonci, Wheezing Cardiovascular: Regular Rate, Rhythm Gastrointestinal: soft, other (wounds clean/dry) Extremity: Normal Capillary Refill Neurologic/Psychiatric: Alert, Oriented x3 Skin: Normal Color Lymphatic: No Adenopathy Results Lab Laboratory Tests 11/23/16 01:57: White Blood Count 15.7H, Red Blood Count 3.11L, Hemoglobin 8.9L, Hematocrit 28L , Mean Corpuscular Volume 90, Mean Corpuscular Hemoglobin 29, Mean Corpuscular Hemoglobin Concent 32, Red Cell Distribution Width 18.8H, Platelet Count 162, Mean Platelet Volume 10.0, Neutrophils (%) (Auto) 91H, Lymphocytes (%) (Auto) 6L , Monocytes (%) (Auto) 3, Eosinophils (%) (Auto) 1, Basophils (%) (Auto) 0, Neutrophils # (Auto) 14.2H, Lymphocytes # (Auto) 0.9L, Monocytes # (Auto) 0.5, Eosinophils # (Auto) 0.1, Basophils # (Auto) 0.0, Sodium Level 137, Potassium Level 3.7, Chloride Level 107, Carbon Dioxide Level 20L, Anion Gap 10, Blood Urea Nitrogen 27H, Creatinine 0.92, Estimat Glomerular Filtration Rate 58, BUN/ Creatinine Ratio 29, Glucose Level 99, Lactic Acid Level 0.79, Calcium Level 7.7L, Phosphorus Level 2.2L, Magnesium Level 2.1 11/23/16 06:30: Urine Color YELLOW, Urine Clarity CLEAR, Urine pH 5, Urine Specific [place] 1.015L, Urine Protein 3+H, Urine Glucose (UA) NEGATIVE, Urine Ketones 3+H, Urine Nitrite POSITIVEH, Urine Bilirubin NEGATIVE, Urine Urobilinogen NORMAL, Urine Leukocyte Esterase 3+H, Urine RBC (Auto) 2+H, Urine RBC NONE, Urine WBC 10 -25H, Urine Squamous Epithelial Cells 5-10, Urine Crystals NONE, Urine Bacteria MODERATEH, Urine Casts NONE, Urine Mucus SMALLH, Urine Culture Indicated YES Microbiology 11/22/16 Urine Culture - Preliminary, Resulted Gram Negative [place] Assessment/Plan Assessment/Plan Assess & Plan/Chief Complaint s/p laparoscopic right hemicolectomy. give small amout lasix(20mg), continue ambulation and await more bowel function and advance diet. monitor wound, if increase edema then get CT abdomen. STEPHANY ALY MD Nov 23, 2016 5:23 pm
[2016-11-23] MEDS: oxyCODONE 20 MG/1 ML ORAL CONC (RoxiCODONE) CHARGE PER 1 ML PO PRN (20:29)
[2016-11-23] MEDS: MONTELUKAST 10 MG (SINGULAIR) TAB PO SCH (20:29)
[2016-11-24] VITALS (22 sets, daily range): BP systolic 108–148; BP diastolic 51–85
[2016-11-24] MEDS: METOCLOPRAMIDE INJ 10 MG/2 ML (REGLAN) IVP SCH ×4 (00:03→18:18)
[2016-11-24] MEDS: MEROPENEM 500 MG in NS (IVPB) 100 ML IV SCH ×4 (00:04→18:18)
[2016-11-24] MEDS: RT-ALBUTEROL SULF 2.5 MG/3 ML PRE-MIX VIAL IH SCH ×6 (01:49→22:08)
[2016-11-24 04:56] LABS: BASOPHILS % (AUTO) 0 % (0-10); EOSINOPHILS # (AUTO) 0.1 10^3/uL (0.0-0.3); EOSINOPHILS % (AUTO) 1 % (0-10); LYMPHOCYTES % (AUTO) 8 % (12-44); MEAN CORPUSCULAR HEMOGLOBIN 28 PG (25-34); MEAN CORPUSCULAR HGB CONC 32 G/DL (32-36); MEAN CORPUSCULAR VOLUME 88 FL (80-99); MEAN PLATELET VOLUME 10.2 FL (7.4-10.4); MONOCYTES # (AUTO) 0.7 X 10^3 (0.0-1.0); MONOCYTES % (AUTO) 6 % (0-12); NEUTROPHILS # (AUTO) 10.4 X 10^3 (1.8-7.8); NEUTROPHILS % (AUTO) 85 % (42-75); PLATELET COUNT 145 10^3/uL (130-400); RED BLOOD COUNT 2.96 10^6/uL (4.35-5.85); RED CELL DISTRIBUTION WIDTH 18.7 % (10.0-14.5); WHITE BLOOD COUNT 12.3 10^3/uL (4.3-11.0)
[2016-11-24 05:12] LABS: ANION GAP 10 MMOL/L (5-14); BLOOD UREA NITROGEN 17 MG/DL (7-18); BUN/CREATININE RATIO 25; CALCIUM 7.4 MG/DL (8.5-10.1); CARBON DIOXIDE 23 MMOL/L (21-32); CHLORIDE 98 MMOL/L (98-107); CREATININE SERUM 0.69 MG/DL (0.60-1.30); GFR ESTIMATED > 60; GLUCOSE 71 MG/DL (70-105); MAGNESIUM 1.5 MG/DL (1.8-2.4); PHOSPHORUS 2.1 MG/DL (2.3-4.7); POTASSIUM 3.4 MMOL/L (3.6-5.0); SODIUM 131 MMOL/L (135-145)
[2016-11-24] MEDS ORDERED: ALBUMIN 25% 25 GM/100 ML 100 ML IV ONE ×2 (05:45)
[2016-11-24] MEDS ORDERED: TPN IV SCH (05:45)
--- NOTE | 2016-11-24 05:47 | Pulmonary Progress Note ---
Subjective Time Seen by Provider: 05:51 Subjective/Events-last exam no Flatus and no BM. denies abd pain or SOB Exam Exam Vital Signs Date Time Temp Pulse Resp B/P (MAP) Pulse Ox O2 Delivery O2 Flow Rate FiO2 11/24/16 04:00 96 Nasal Cannula 2.00 11/24/16 04:00 85 12 116/51 94 Nasal Cannula 2.00 11/24/16 03:00 85 12 116/51 98 Nasal Cannula 2.00 11/24/16 02:00 85 13 130/56 100 Nasal Cannula 2.00 11/24/16 01:49 99 Nasal Cannula 2.50 11/24/16 01:00 85 11/24/16 01:00 85 17 122/56 100 Nasal Cannula 2.00 11/24/16 00:04 97.5 Nasal Cannula 2.00 11/24/16 00:00 100 Nasal Cannula 2.00 11/23/16 23:00 85 12 124/59 99 Nasal Cannula 2.00 11/23/16 22:00 85 13 127/67 98 Nasal Cannula 2.00 11/23/16 21:29 98 Nasal Cannula 2.50 11/23/16 21:00 82 14 124/59 100 Nasal Cannula 2.00 11/23/16 20:00 84 22 119/56 100 Nasal Cannula 2.00 11/23/16 20:00 99.5 Nasal Cannula 2.00 11/23/16 20:00 94 Nasal Cannula 2.00 11/23/16 19:00 80 11/23/16 19:00 82 16 122/58 96 Nasal Cannula 2.00 11/23/16 18:23 Nasal Cannula 2.50 11/23/16 18:00 80 11 124/59 100 Nasal Cannula 2.00 11/23/16 17:00 90 17 133/59 100 Nasal Cannula 2.00 11/23/16 16:00 100.0 89 20 133/9 94 Nasal Cannula 2.00 11/23/16 16:00 94 Room Air 11/23/16 15:16 99.0 11/23/16 15:00 82 14 115/83 100 Nasal Cannula 2.00 11/23/16 14:29 Nasal Cannula 2.50 11/23/16 14:00 112 20 120/65 96 Nasal Cannula 2.00 11/23/16 13:00 118 22 134/75 100 Nasal Cannula 2.00 11/23/16 13:00 93 11/23/16 12:41 101.0 11/23/16 12:00 100 Room Air 11/23/16 12:00 101.2 11/23/16 12:00 109 15 122/83 92 Nasal Cannula 2.00 11/23/16 11:00 101 14 126/62 98 Nasal Cannula 2.00 11/23/16 10:21 Nasal Cannula 2.00 11/23/16 10:00 107 17 123/76 98 Nasal Cannula 2.00 11/23/16 09:00 105 17 130/77 100 Nasal Cannula 11/23/16 08:00 100 Room Air 11/23/16 08:00 110 19 135/70 100 Nasal Cannula 11/23/16 07:00 100.0 85 15 149/67 98 Nasal Cannula 2.00 11/23/16 07:00 93 11/23/16 06:50 Nasal Cannula 0.50 11/23/16 06:00 87 14 149/67 97 Room Air General Appearance: No Apparent Distress HEENT: PERRL/EOMI Neck: Full Range of Motion Respiratory: Chest Non Tender, No Accessory Muscle Use, No Respiratory Distress , Decreased Breath Sounds, Rhonci, Wheezing Cardiovascular: Regular Rate, Rhythm Gastrointestinal: soft, distended, other (wounds clean/dry) Extremity: Normal Capillary Refill Neurologic/Psychiatric: Alert, Oriented x3 Skin: Normal Color Lymphatic: No Adenopathy Results Lab Laboratory Tests 11/22/16 12:55 11/23/16 01:57 11/24/16 04:50 Assessment/Plan Assessment/Plan s/p right hemicolectomy POD #4 -pain control Adenocarcinoma of right colon -Clindamycin, and Flagyl currently Persistent leukocytosis POD#4 -improving-- -Consider Ct abd/pelvis r/o abscess -Pt develops hives with IV contrast -Check KUB -Culture ROSA drain output -mims culture -merrem and vanco started 11/23 and mims culture pending -- Pt has multiple abx allergies Metabolic acidosis - resolved -bicarb gtt change to NS Malnutrition with hypoalbuminemia and third spacing -If ok with Dr. Gaston start TPN with total IVF 125cc/hr -ROSA drain has drained 920cc x 11 hrs -UO is 28.45/hr -Will give 500cc NS bolus -Continue aggressive IVF -Hold off on lasix for now patient is intravascular dry Atelectasis r/o PNA - Doubt pneumonia -IS -SVNs-- change to easy PAP -increase activity -PT/OT 233 MONE GRIFFIN DO Nov 24, 2016 05:47
[2016-11-24] MEDS ORDERED: NS IV 500 ML 500 ML IV ONE (06:00)
[2016-11-24] MEDS: MAGNESIUM 1 GM/100 ML IVPB 100 ML IV SCH ×3 (06:16→07:42)
[2016-11-24] MEDS: KCL 20 MEQ TAB (K-DUR) PO SCH (06:16)
[2016-11-24] MEDS: NS IV 1000 ML 1,000 ML IV SCH ×2 (06:17→14:54)
[2016-11-24] MEDS: POTASSIUM CL 10MEQ/50ML IVPB 50 ML IV SCH ×3 (06:17→07:08)
[2016-11-24] MEDS ORDERED: SODIUM PHOSPHATE INJ 30 MM in NS (IVPB) 250 ML IV NR (06:55)
[2016-11-24] MEDS ORDERED: VANCOMYCIN 1250 MG/NS 250 ML IVPB IV SCH ×2 (07:00)
--- NOTE | 2016-11-24 07:24 | Diagnostic Imaging Report ---
INDICATION: Followup. Status post colon resection. COMPARISON: 11/23/2016. FINDINGS: Single frontal radiographic view of the chest was obtained and demonstrates stable cardiac silhouette and pulmonary vasculature. Left subclavian central venous catheter is again identified with tip in the SVC. Lungs continue to show low inspiratory volumes with hazy opacification of both lung bases. Small effusions cannot be excluded. There is no pneumothorax. Overall, aeration is stable. Bony structures show no acute abnormalities. IMPRESSION: 1. Essentially stable exam of the chest showing low lung volumes with probable bibasilar effusions and/or atelectasis. Dictated by: Dictated on workstation # [id number]
--- NOTE | 2016-11-24 08:04 | Progress Note-Hospitalist ---
Subjective HPI/CC On Admission Date Seen by Provider: Nov 24, 2016 Time Seen by Provider: 07:40 Subjective/Events-last exam Reports feeling better today. Has been taking in some Jello. Feels abd is about the same as yesterday. Objective Exam Vital Signs Vital Sign - Last 12Hours 11/19/16 11/19/16 10:48 17:15 Temp 98.0 Pulse 65 Resp 16 B/P (MAP) 142/71 Pulse Ox 96 O2 Delivery Room Air O2 Flow Rate 4.00 Capillary Refill : General Appearance: No Apparent Distress, WD/WN Respiratory: No Accessory Muscle Use, No Respiratory Distress, Wheezing Cardiovascular: Regular Rate, Rhythm, No Edema, No Murmur Gastrointestinal: Distended, No Guarding Extremity: Non Tender, No Calf Tenderness Neurologic/Psychiatric: Alert, Oriented x3, Normal Mood/Affect Skin: Other (surgical sites closed with jasbir, appear clean and dry, no drainage/erythema) Results/Procedures Lab Laboratory Tests 11/24/16 04:50 Assessment/Plan Assessment and Plan Assess & Plan/Chief Complaint 1. POD #4 status post right hemicolectomy for adenocarcinoma of the colon per Dr. Gaston 2. [place] metabolic acidosis, improved today- now off bicarb gtt, on NS at 125ml/hr 3. Oliguria- Improved slightly yesterday but still below goal- will rebolus 500cc and monitor 4. UTI- Leukocytosis improving, febrile yesterday afternoon but not over night [place] on abx Merrem, and Vanc. Await sensitives on urine culture (growing klebsiella and citrobacter) 5. Asthma- reports history of asthma, no SOB today 6. Normocytic anemia- stable around 9. has been as low as 6.1 1 month ago, trend 7. Electrolyte abnormalites- on K and Mag protocol, Phosphate replated this AM by Dr. Cardoso 7.FEN/GI/PPX- NS at 125, On Lovenox, Protonix, NPO Day 6, consider TPN in near future if not able to take in PO soon PONCHO CHRISTOPHER MD Nov 24, 2016 08:04
[2016-11-24] MEDS: PANTOPRAZOLE 40 MG/10 ML (PROTONIX) VIAL IV SCH (09:07)
[2016-11-24] MEDS: SENNA W/DOCUSATE (SENOKOT S) TABLET PO SCH (09:07)
[2016-11-24] MEDS: meTOprolol SUCCINATE 100 MG (TOPROL XL) TAB PO SCH ×2 (09:07→20:22)
[2016-11-24] MEDS: ENOXAPARIN 30 MG/0.3 ML (LOVENOX) SYR SC SCH ×2 (09:07→20:22)
[2016-11-24] MEDS: amLODIPine 5 MG (NORVASC) TAB PO SCH (09:07)
--- NOTE | 2016-11-24 09:51 | Occupational Ther Daily Note ---
OT Current Status-Daily Note Subjective Pt alert, sitting in chair. Just finished with PT. Agrees to therapy, no c/o pain but feels tired. Mental Status/Objective Patient Orientation: Person, Place, Time, Situation Functional [place] Measure 0=Not Assessed/NA 4=Minimal Assistance 1=Total Assistance 5=Supervision or Setup 2=Maximal Assistance 6=Modified [place] 3=Moderate Assistance 7=Complete [place] Attachments: Nelson Catheter, IV, Oxygen ADL-Treatment Grooming (FIM): 4 (After set up, pt able to wash face and brush teeth while seated in chair. Pt attempts to comb hair, requiring assistace to complete due to decreased ROM in R arm. ) After grooming, pt felt very fatigued and began to wheeze. OT Short Term Goals Short Term Goals 1=Demonstrate adherence to instructed precautions during ADL tasks. 2=Patient will verbalize/demonstrate understanding of assistive devices/ modifications for ADL. 3=Patient will improve strength/tolerance for activity to enable patient to perform ADL's. OT Senior Living Goals Product Safety Consultant Goals Time Frame: Dec 11, 2016 Eating (FIM): 6 Grooming(FIM): 6 Bathing(FIM): 5 Upper Body Dressing(FIM): 5 Lower Body Dressing(FIM): 5 Toileting(FIM): 6 Toilet/Commode Transfer(FIM): 6 Shower Transfer(FIM): 5 Additional Goals: 2-Verbalize Understanding, 3-ImproveStrength/Shari 1=Demonstrate adherence to instructed precautions during ADL tasks. 2=Patient will verbalize/demonstrate understanding of assistive devices/ modifications for ADL. 3=Patient will improve strength/tolerance for activity to enable patient to perform ADL's. OT Education/Plan Problem List/Assessment Pt would benefit from skilled OT to increase her independence in basic self care to allow her to safely return to her home and to decrease caregiver burden Discharge Recommendations Plan/Recommendations: Continue POC Treatment Plan/Plan of Care Patient would benefit from OT for education, treatment and training to promote independence in ADL's, mobility, safety and/or upper extremity function for ADL' s. Plan of Care: ADL Retraining, Functional Mobility, UE Funct Exercise/Act, UE Neuromus Re-Ed/Coord Treatment Duration: Dec 11, 2016 Frequency: 5 times per week Estimated Hrs Per Day: .5 hour per day Agreement: Yes Rehab Potential: Good Time/GCodes Start Time: 09:30 Stop Time: 09:42 Total Time Billed (hr/min): 12 Billed Treatment Time 1 visit, FA 1 (12 minutes) RL CHARLES Nov 24, 2016 09:51
[2016-11-24] MEDS ORDERED: aCETylcysteine 20% (MUCOMYST) 30ML SOLN VIAL INH SCH (10:00)
[2016-11-24] MEDS ORDERED: RT-ALBUTEROL SULF 2.5 MG/3 ML PRE-MIX VIAL IH SCH (10:00)
[2016-11-24] MEDS ORDERED: RT-ALBUTEROL SULF 2.5 MG/3 ML PRE-MIX VIAL IH PRN (10:00)
--- NOTE | 2016-11-24 10:09 | Physical Therapy Daily Note ---
PT Daily Note-Current Subjective Patient is in bed and states she is fatigue, however, feeling better. Pain Numeric Pain Scale: 8 Location: Lower Location Body Site: Abdomen Pain Description: Pressure, Acute Mental Status Patient Orientation: Normal For Age Attachments: Drains, Nelson Catheter, IV Transfers Functional [place] Measure 0=Not Assessed/NA 4=Minimal Assistance 1=Total Assistance 5=Supervision or Setup 2=Maximal Assistance 6=Modified [place] 3=Moderate Assistance 7=Complete IndependenceIRFPAI Quality Coding Scale 6 Independent with activity with or without an assistive device 5 Patient requires set up or clean up by helper. Patient completes activity by themselves 4 Supervision or touching assist (CGA). [place] provide cues , steadying assist 3 The helper provides less than half the effort to complete the activity 2 The helper provides more than half the effort to complete the activity 1 Dependent. The helper does all the effort to complete an activity 7 Patient refused to complete or attempt activity 9 The patient did not perform the activity before the current illness or injury 88 Not attempted due to Medical conditions or safety concerns Transfers (B, C, W/C) (FIM): 3 Scootin Rollin Supine to/from Sit: 3 Sit to/from Stand: 4 Bed to/from Chair: 4 Patient improved with sit to stand transfers and standing x 1 minute x 2 sets working on posture due to trunk flexed posture due to discomfort of abdomen. Gait Training Gait (FIM): 1 Distance (FIM): 1=up to 49 ft Distance: 5' Gait Level of Assist: 4 Gait Persons Needed: 1 Gait Assistive Device: FWW Improved activity with ability to ambulate short distance. Exercises Seated Therapy Exercises: Ankle pumps, Long arc quads, Hip flexion Seated Reps: 15 (x 2 sets) Assessment Patient improving slowly with treatment plan. PT to increase activity as patient tolerates. PT Satellite Installer Goals Retirement Goals PT Satellite Installer Goals Time Frame: Dec 11, 2016 Transfers (B,C,W/C) (FIM): 6 Gait (FIM): 6 Gait distance (FIM): 3=150 ft Gait Level of Assist: 6 Gait Assistive Device: FWW PT Plan Treatment/Plan Treatment Plan: Continue Plan of Care Treatment Plan: Bed Mobility, Education, Functional Activity Shari, Functional Strength, Gait, Safety, Therapeutic Exercise, Transfers Treatment Duration: Dec 11, 2016 Frequency: 6 times per week Estimated Hrs Per Day: .5 hour per day Patient and/or Family Agrees t: Yes Time/GCodes Time In: 920 Time Out: 930 Total Billed Treatment Time: 10 Total Billed Treatment 1 visit FA 10 min MICHELLE ROLLINS PT Nov 24, 2016 10:09
--- NOTE | 2016-11-24 14:28 | Progress Note (SOAP) ---
Subjective Date Seen by Provider: Nov 24, 2016 Time Seen by Provider: 14:00 Subjective/Events-last exam doing ok. enterococcus U/A. no bowel function yet. WBC improving. Objective Exam Vital Signs Date Time Temp Pulse Resp B/P (MAP) Pulse Ox O2 Delivery O2 Flow Rate FiO2 11/24/16 14:00 97 Nasal Cannula 3.00 11/24/16 13:00 81 11/24/16 12:15 96 Nasal Cannula 2.00 11/24/16 12:00 88 18 141/57 88 Nasal Cannula 2.00 11/24/16 11:00 85 16 142/56 91 Nasal Cannula 2.00 11/24/16 10:37 100 Nasal Cannula 2.00 11/24/16 10:00 80 14 120/54 94 Nasal Cannula 2.00 11/24/16 09:00 87 18 124/64 94 Nasal Cannula 2.00 11/24/16 08:30 96 Nasal Cannula 2.00 11/24/16 08:00 98.4 11/24/16 08:00 82 18 111/58 97 Nasal Cannula 2.00 11/24/16 07:00 85 11/24/16 06:18 100 Nasal Cannula 2.00 11/24/16 06:00 85 12 124/62 100 Nasal Cannula 2.00 11/24/16 05:00 80 10 110/52 98 Nasal Cannula 2.00 11/24/16 04:00 96 Nasal Cannula 2.00 11/24/16 04:00 85 12 116/51 94 Nasal Cannula 2.00 11/24/16 03:00 85 12 116/51 98 Nasal Cannula 2.00 11/24/16 02:00 85 13 130/56 100 Nasal Cannula 2.00 11/24/16 01:49 99 Nasal Cannula 2.50 11/24/16 01:00 85 11/24/16 01:00 85 17 122/56 100 Nasal Cannula 2.00 11/24/16 00:04 97.5 Nasal Cannula 2.00 11/24/16 00:00 100 Nasal Cannula 2.00 11/23/16 23:00 85 12 124/59 99 Nasal Cannula 2.00 11/23/16 22:00 85 13 127/67 98 Nasal Cannula 2.00 11/23/16 21:29 98 Nasal Cannula 2.50 11/23/16 21:00 82 14 124/59 100 Nasal Cannula 2.00 11/23/16 20:00 84 22 119/56 100 Nasal Cannula 2.00 11/23/16 20:00 99.5 Nasal Cannula 2.00 11/23/16 20:00 94 Nasal Cannula 2.00 11/23/16 19:00 80 11/23/16 19:00 82 16 122/58 96 Nasal Cannula 2.00 11/23/16 18:23 Nasal Cannula 2.50 11/23/16 18:00 80 11 124/59 100 Nasal Cannula 2.00 11/23/16 17:00 90 17 133/59 100 Nasal Cannula 2.00 11/23/16 16:00 100.0 89 20 133/9 94 Nasal Cannula 2.00 11/23/16 16:00 94 Room Air 11/23/16 15:16 99.0 11/23/16 15:00 82 14 115/83 100 Nasal Cannula 2.00 11/23/16 14:29 Nasal Cannula 2.50 I & O 11/25/16 07:00 Intake Total 862.5 ml Output Total 430 ml Balance 432.5 ml Capillary Refill : General Appearance: No Apparent Distress HEENT: PERRL/EOMI Respiratory: Rhonci, Wheezing Cardiovascular: Regular Rate, Rhythm Gastrointestinal: soft, tenderness Extremity: Normal Capillary Refill Neurologic/Psychiatric: Alert, Oriented x3 Skin: Normal Color Lymphatic: No Adenopathy Results Lab Laboratory Tests 11/24/16 04:50: White Blood Count 12.3H, Red Blood Count 2.96L, Hemoglobin 8.3L, Hematocrit 26L , Mean Corpuscular Volume 88, Mean Corpuscular Hemoglobin 28, Mean Corpuscular Hemoglobin Concent 32, Red Cell Distribution Width 18.7H, Platelet Count 145, Mean Platelet Volume 10.2, Neutrophils (%) (Auto) 85H, Lymphocytes (%) (Auto) 8L , Monocytes (%) (Auto) 6, Eosinophils (%) (Auto) 1, Basophils (%) (Auto) 0, Neutrophils # (Auto) 10.4H, Lymphocytes # (Auto) 1.0, Monocytes # (Auto) 0.7, Eosinophils # (Auto) 0.1, Basophils # (Auto) 0.0, Sodium Level 131L, Potassium Level 3.4L, Chloride Level 98, Carbon Dioxide Level 23, Anion Gap 10, Blood Urea Nitrogen 17, Creatinine 0.69, Estimat Glomerular Filtration Rate > 60, BUN/ Creatinine Ratio 25, Glucose Level 71, Calcium Level 7.4L, Phosphorus Level 2.1L , Magnesium Level 1.5L, Albumin 2.2L, Triglycerides Level 123 11/24/16 10:45: Prealbumin 5.0L Microbiology 11/23/16 Gram Stain, Resulted Pending 11/23/16 Body Fluid Culture - Preliminary, Resulted Gram Negative Gurmeet 11/23/16 Urine Culture - Preliminary, Resulted Gram Negative Gurmeet Gram Negative Gurmeet#2 Probable Enterococcus Species Assessment/Plan Assessment/Plan Assess & Plan/Chief Complaint s/p laparoscopic right hemicolectomy. continue ambulation and await more bowel function and advance diet. monitor wound, if increase edema then get CT abdomen. add flagyl for enterococcus. STEPHANY ALY MD Nov 24, 2016 14:28
[2016-11-24] MEDS: SODIUM CHLORIDE IV SCH ×10 (16:34)
[2016-11-24] MEDS: SODIUM ACETATE IV SCH ×10 (16:34)
[2016-11-24] MEDS: [UNRECOGNIZED DRUG - OTHER] IV SCH ×10 (16:34)
[2016-11-24] MEDS ORDERED: NS IV 1000 ML 1,000 ML IV SCH (17:00)
[2016-11-24] MEDS: metroNIDAZOLE 500MG/100ML IVPB 100 ML IV SCH (20:22)
[2016-11-24] MEDS: ACETAMINOPHEN 500 MG TAB (TYLENOL) PO PRN (20:22)
[2016-11-24] MEDS: MONTELUKAST 10 MG (SINGULAIR) TAB PO SCH (20:22)
[2016-11-24] MEDS: ONDANSETRON 4 MG/2 ML (SDV) Z0FRAN IVP PRN (23:29)
[2016-11-25] VITALS (24 sets, daily range): BP systolic 120–161; BP diastolic 50–81
[2016-11-25] MEDS: METOCLOPRAMIDE INJ 10 MG/2 ML (REGLAN) IVP SCH ×4 (00:03→16:56)
[2016-11-25] MEDS: MEROPENEM 500 MG in NS (IVPB) 100 ML IV SCH (00:03)
[2016-11-25] MEDS: RT-ALBUTEROL SULF 2.5 MG/3 ML PRE-MIX VIAL IH SCH ×5 (02:00→19:41)
[2016-11-25 04:03] LABS: BASOPHILS % (AUTO) 0 % (0-10); EOSINOPHILS # (AUTO) 0.1 10^3/uL (0.0-0.3); EOSINOPHILS % (AUTO) 1 % (0-10); LYMPHOCYTES # (AUTO) 0.8 X 10^3 (1.0-4.0); LYMPHOCYTES % (AUTO) 7 % (12-44); MEAN CORPUSCULAR HEMOGLOBIN 28 PG (25-34); MEAN CORPUSCULAR HGB CONC 32 G/DL (32-36); MEAN CORPUSCULAR VOLUME 87 FL (80-99); MEAN PLATELET VOLUME 10.3 FL (7.4-10.4); MONOCYTES # (AUTO) 0.8 X 10^3 (0.0-1.0); MONOCYTES % (AUTO) 7 % (0-12); NEUTROPHILS # (AUTO) 9.9 X 10^3 (1.8-7.8); NEUTROPHILS % (AUTO) 85 % (42-75); PLATELET COUNT 154 10^3/uL (130-400); RED BLOOD COUNT 3.18 10^6/uL (4.35-5.85); RED CELL DISTRIBUTION WIDTH 18.7 % (10.0-14.5); WHITE BLOOD COUNT 11.6 10^3/uL (4.3-11.0)
[2016-11-25 04:19] LABS: ANION GAP 8 MMOL/L (5-14); BLOOD UREA NITROGEN 15 MG/DL (7-18); BUN/CREATININE RATIO 23; CALCIUM 7.5 MG/DL (8.5-10.1); CARBON DIOXIDE 26 MMOL/L (21-32); CHLORIDE 101 MMOL/L (98-107); CREATININE SERUM 0.64 MG/DL (0.60-1.30); GFR ESTIMATED > 60; GLUCOSE 170 MG/DL (70-105); MAGNESIUM 1.8 MG/DL (1.8-2.4); PHOSPHORUS 2.2 MG/DL (2.3-4.7); POTASSIUM 3.4 MMOL/L (3.6-5.0); SODIUM 135 MMOL/L (135-145)
[2016-11-25] MEDS: MAGNESIUM 1 GM/100 ML IVPB 100 ML IV SCH (05:27)
[2016-11-25] MEDS: POTASSIUM CL 10MEQ/50ML IVPB 50 ML IV SCH ×3 (05:27→08:05)
[2016-11-25] MEDS: KCL 20 MEQ TAB (K-DUR) PO SCH (05:41)
[2016-11-25] MEDS ORDERED: TROUGH ORDER-PHARMACY XX NR (06:00)
--- NOTE | 2016-11-25 06:13 | Diagnostic Imaging Report ---
INDICATION: Tube placement. TECHNIQUE: Portable supine view of the abdomen 4:27 AM CORRELATION STUDY: 11/25/2016 FINDINGS: Gastric tube noted in the left upper quadrant appearing to be within the region of the body of the stomach. Previously noted marked gastric distention has decreased. Additional tubing over the right mid abdomen remains in place. Probable Nelson catheter tubing present as well. There is prominent amount of small bowel gas distention centered within the left abdomen. This distention may be slightly increased from prior study. Scattered skin jasbir are present. Gas is noted in what appears to be likely at the level of the rectum. IMPRESSION: 1. Gastric tube is placed with significant decrease in the previously noted gastric distention. Prominent gas-filled loops of small bowel remain within the left mid abdomen may be slightly more pronounced from prior study. However, gas is noted to the level of the rectum. Therefore, this may be reflective of rather pronounced ileus. Dictated by: Dictated on workstation # [id number]
--- NOTE | 2016-11-25 06:24 | Pulmonary Progress Note ---
Subjective Time Seen by Provider: 06:26 Subjective/Events-last exam PT started vomiting last night and NG was placed and connected to suction. 1 liter of green stomach contents was obtained. Pt still has no flatus and no BM. Pt is only taking Tylenol for pain. ROSA has drained about 610cc over last 12 hours. UO has been 55cc/hr over last 12 hours. Pt is having audible wheezing and she is only requiring 4 liters oxygen. Exam Exam Vital Signs Date Time Temp Pulse Resp B/P (MAP) Pulse Ox O2 Delivery O2 Flow Rate FiO2 11/25/16 06:00 99 17 126/73 96 Nasal Cannula 4.00 11/25/16 05:13 99 OxyMask 4.00 11/25/16 05:00 86 14 126/50 88 Nasal Cannula 4.00 11/25/16 04:19 97.6 Nasal Cannula 3.00 11/25/16 04:00 93 24 161/81 96 Nasal Cannula 3.00 11/25/16 04:00 96 Nasal Cannula 3.00 11/25/16 03:00 84 17 142/63 97 Nasal Cannula 3.00 11/25/16 02:23 97 Nasal Cannula 3.00 11/25/16 02:00 109 22 142/81 96 Nasal Cannula 3.00 11/25/16 01:00 125 10 138/61 93 Nasal Cannula 3.00 11/25/16 00:41 117 11/25/16 00:39 93 11/25/16 00:09 98.5 Nasal Cannula 3.00 11/25/16 00:00 92 Nasal Cannula 3.00 11/25/16 00:00 91 20 133/68 97 Nasal Cannula 3.00 11/24/16 23:00 110 19 148/74 96 Nasal Cannula 3.00 11/24/16 22:08 96 Nasal Cannula 3.00 11/24/16 22:00 121 18 122/64 96 Nasal Cannula 3.00 11/24/16 21:00 107 22 121/71 97 Nasal Cannula 3.00 11/24/16 20:00 100.0 107 18 145/76 92 Nasal Cannula 3.00 11/24/16 20:00 92 Nasal Cannula 3.00 11/24/16 19:00 99 11/24/16 19:00 107 20 136/72 91 Nasal Cannula 1.00 11/24/16 18:51 92 Nasal Cannula 1.00 11/24/16 18:00 98 19 126/70 93 Nasal Cannula 1.00 11/24/16 17:00 85 17 129/64 94 Nasal Cannula 1.00 11/24/16 16:00 96 Nasal Cannula 3.00 11/24/16 16:00 120 18 129/66 93 Nasal Cannula 1.00 11/24/16 16:00 97.0 11/24/16 16:00 Nasal Cannula 1.00 11/24/16 15:00 103 16 126/59 93 Nasal Cannula 3.00 11/24/16 14:11 103 11/24/16 14:00 85 16 108/85 98 Nasal Cannula 3.00 11/24/16 14:00 97 Nasal Cannula 3.00 11/24/16 13:00 81 11/24/16 13:00 82 12 138/57 97 Nasal Cannula 3.00 11/24/16 12:30 Nasal Cannula 3.00 11/24/16 12:15 96 Nasal Cannula 2.00 11/24/16 12:00 88 18 141/57 88 Room Air 11/24/16 11:00 85 16 142/56 91 Room Air 11/24/16 10:37 100 Nasal Cannula 2.00 11/24/16 10:00 80 14 120/54 94 Room Air 11/24/16 09:00 87 18 124/64 94 Room Air 11/24/16 08:30 96 Nasal Cannula 2.00 11/24/16 08:00 98.4 11/24/16 08:00 82 18 111/58 97 Nasal Cannula 2.00 11/24/16 07:00 85 General Appearance: No Apparent Distress HEENT: PERRL/EOMI Neck: Full Range of Motion Respiratory: Rhonci, Wheezing Cardiovascular: Regular Rate, Rhythm Gastrointestinal: soft, tenderness Extremity: Normal Capillary Refill Neurologic/Psychiatric: Alert, Oriented x3 Skin: Normal Color Lymphatic: No Adenopathy Results Lab Laboratory Tests 11/24/16 04:50 11/25/16 03:45 Assessment/Plan Assessment/Plan s/p right hemicolectomy POD #4 -pain control Adenocarcinoma of right colon Persistent leukocytosis POD#4 -improving-- -Consider Ct abd/pelvis r/o abscess -Pt develops hives with IV contrast -Check KUB -Culture ROSA drain output -mims culture -culture and sensitivities reviewed will sheree Jean Baptiste to cipro flagyl- D/C vanco carlo Pt has multiple abx allergies -D/C NS and continue TPN at 69cc/hr per pharmacy -Give 40mg of IV lasix X 1 Ileus post op -IVF -NG tube -Reglan -Bowl rest Malnutrition with hypoalbuminemia and third spacing - TPN started 11/24/16 Paroxysmal Afib per RN -Obtain a EKG -Consult cardiology Atelectasis r/o PNA - Doubt pneumonia -IS -SVNs-- change to easy PAP -increase activity -PT/OT GI/DVT ppx -lovenox, SCDs, and add protonix 233 MONE GRIFFIN DO Nov 25, 2016 06:24
--- NOTE | 2016-11-25 06:35 | Diagnostic Imaging Report ---
INDICATION: Abdominal distention with nausea and vomiting. Post colon resection. TECHNIQUE: Single supine portable view of the abdomen 3:13 AM CORRELATION STUDY: 11/23/2016 FINDINGS: There is rather pronounced gas distention of the stomach. Gas distention of small bowel are noted. Gas is noted at the level of the rectum. Tubing over the right mid abdomen and likely Nelson catheter tubing present. Scattered skin jasbir are noted. IMPRESSION: 1. Rather pronounced gas-distention of the stomach. Prominent gas-distended small bowel. Gas is noted at the level of the rectum features favor probable rather pronounced ileus. Partial small bowel obstruction would be difficult to exclude at this time. Serial radiographic followup imaging is recommended. Dictated by: Dictated on workstation # [id number]
[2016-11-25] MEDS ORDERED: FUROSEMIDE 40 MG/4 ML INJ (LASIX) IVP NR (06:45)
--- NOTE | 2016-11-25 07:44 | Progress Note-Hospitalist ---
Subjective HPI/CC On Admission Date Seen by Provider: Nov 25, 2016 Time Seen by Provider: 07:25 Subjective/Events-last exam Reports feeling better since NG tube placed. Discussed her history of a-fib. States she was taking off anticoagulation two weeks ago due to a GI Bleed. Objective Exam Vital Signs Vital Sign - Last 12Hours 11/19/16 11/19/16 10:48 17:15 Temp 98.0 Pulse 65 Resp 16 B/P (MAP) 142/71 Pulse Ox 96 O2 Delivery Room Air O2 Flow Rate 4.00 Capillary Refill : General Appearance: No Apparent Distress, WD/WN Respiratory: Lungs Clear, Normal Breath Sounds Cardiovascular: Regular Rate, Rhythm, No Murmur Gastrointestinal: Abnormal Bowel Sounds (quiet), Distended, No Guarding Extremity: No Calf Tenderness, No Pedal Edema Neurologic/Psychiatric: Alert, Oriented x3 Results/Procedures Lab Laboratory Tests 11/25/16 03:45 Assessment/Plan Assessment and Plan Assess & Plan/Chief Complaint 1. POD #5 status post right hemicolectomy for adenocarcinoma of the colon per Dr. Gaston 2. Paroxysmal a-fib- Rate has been well controlled on metoprolol. Off anticoagulation for 2 week due to her GI bleed. Cards consulted appreciate recs 3. Oliguria- Improved yesterday, 54cc/kg/hr 4. UTI, bacterial peritonitis- Leukocytosis improving, afebrile yesterday Currently on Cipro/Flagyl per senstivities of Klebsiella, E. Coli, and Citrobacter 5. Asthma- reports history of asthma, no SOB today 6. Normocytic anemia- stable around 9. has been as low as 6.1 1 month ago, trend 7. Electrolyte abnormalities- on K and Mag protocol, on TPN 8.FEN/GI/PPX- On Lovenox for dvt ppx, Protonix, NPO Day 7, continue TPN PONCHO CHRISTOPHER MD Nov 25, 2016 07:44
[2016-11-25 08:09] LABS: ABG BASE EXCESS 5.4 MMOL/L (-2.5-2.5); ABG HCO3 30 MMOL/L (23-27); ABG OXYGEN SATURATION 99 % (94-100); ABG PCO2 47 MMHG (35-45); ABG PH 7.42 (7.37-7.43); ABG PO2 99 MMHG (79-93); ABG TCO2 30.9 MMOL/L (21.0-31.0)
[2016-11-25 08:11] LABS: ALLENS TEST YES-POS; PATIENT TEMP 100.8
[2016-11-25] MEDS ORDERED: POTASSIUM PHOSPHATE INJ 6.8 MM in NS (IVPB) 50 ML IV SCH ×4 (08:15)
[2016-11-25] MEDS: POTASSIUM PHOSPHATE INJ 6.8 MM in NS (IVPB) 50 ML IV SCH ×2 (08:46→09:06)
[2016-11-25] MEDS: metroNIDAZOLE 500MG/100ML IVPB 100 ML IV SCH ×2 (08:47→22:27)
[2016-11-25] MEDS: meTOprolol SUCCINATE 100 MG (TOPROL XL) TAB PO SCH ×2 (08:47→22:28)
[2016-11-25] MEDS: CIPROFLOXACIN IV 400MG/200ML 200 ML IV SCH ×2 (08:47→22:27)
[2016-11-25] MEDS: ENOXAPARIN 30 MG/0.3 ML (LOVENOX) SYR SC SCH ×2 (08:47→22:27)
[2016-11-25] MEDS: SENNA W/DOCUSATE (SENOKOT S) TABLET PO SCH (08:47)
[2016-11-25] MEDS: amLODIPine 5 MG (NORVASC) TAB PO SCH (08:47)
[2016-11-25] MEDS: PANTOPRAZOLE 40 MG/10 ML (PROTONIX) VIAL IV SCH (08:48)
--- NOTE | 2016-11-25 09:37 | Diagnostic Imaging Report ---
INDICATION: Postoperative. TECHNIQUE: Single view chest at 4:23 AM. CORRELATION STUDY: 11/24/2016. FINDINGS: A left subclavian central line is present with the tip projected over the SVC. A gastric tube has been placed with the tip in the left upper quadrant in the region of the body of the stomach. The heart size and mediastinum are stable. There are areas of atelectasis or infiltrate in both lung bases with likely small effusions. The findings are stable to perhaps minimally improved. IMPRESSION: 1. Placement of a gastric tube. Prominent gas filled loops of bowel are noted in the upper abdomen. 2. Combination of atelectasis and/or infiltrate along with small effusions in the lung bases but overall appear perhaps slightly improved. Dictated by: Dictated on workstation # [id number]
--- NOTE | 2016-11-25 11:55 | Physical Therapy Daily Note ---
PT Daily Note-Current Subjective Pt laying Supine in bed upon arrival. Pt had just moved back from recliner with nursing assistance. Pt agreed to "a little tx". Pain Comment: Pt doesn't rate or provide location, only facial grimace. Mental Status Patient Orientation: Person, Situation Attachments: Drains, Nelson Catheter, IV Transfers Functional [place] Measure 0=Not Assessed/NA 4=Minimal Assistance 1=Total Assistance 5=Supervision or Setup 2=Maximal Assistance 6=Modified [place] 3=Moderate Assistance 7=Complete IndependenceIRFPAI Quality Coding Scale 6 Independent with activity with or without an assistive device 5 Patient requires set up or clean up by helper. Patient completes activity by themselves 4 Supervision or touching assist (CGA). [place] provide cues , steadying assist 3 The helper provides less than half the effort to complete the activity 2 The helper provides more than half the effort to complete the activity 1 Dependent. The helper does all the effort to complete an activity 7 Patient refused to complete or attempt activity 9 The patient did not perform the activity before the current illness or injury 88 Not attempted due to Medical conditions or safety concerns Exercises Supine Ex: Ankle pumps, Quad Set, Heel Slides, Straight leg raise, Hip abd/add Supine Reps: 10 Treatments Pt completes Supine Ex in bed with a couple of short rest breaks during Ex. Pt rests at end of tx with all needs met. Assessment Pr very drowsy during tx, fell asleep easily. Pt has good ROM, needed a little more help on LLE due to weakness and pain. PT Prison Goals Salt Washer Goals PT Salt Washer Goals Time Frame: Dec 11, 2016 Transfers (B,C,W/C) (FIM): 6 Gait (FIM): 6 Gait distance (FIM): 3=150 ft Gait Level of Assist: 6 Gait Assistive Device: FWW PT Plan Problem List Problem List: Activity Tolerance, Functional Strength, Safety, Balance, Gait, Transfer, Bed Mobility Treatment/Plan Treatment Plan: Continue Plan of Care Treatment Plan: Bed Mobility, Education, Functional Activity Shari, Functional Strength, Gait, Safety, Therapeutic Exercise, Transfers Treatment Duration: Dec 11, 2016 Frequency: 6 times per week Estimated Hrs Per Day: .5 hour per day Patient and/or Family Agrees t: Yes Safety Risks/Education Patient Education: Correct Positioning, Safety Issues Teaching Recipient: Patient Teaching Methods: Discussion Response to Teaching: Verbalize Understanding Time/GCodes Time In: 1130 Time Out: 1145 Total Billed Treatment Time: 15 Total Billed Treatment 1 visit, EX (15m) RUTH MEDINA STOCK CLERK [employer] Nov 25, 2016 11:55
--- NOTE | 2016-11-25 14:30 | Progress Note (SOAP) ---
Subjective Date Seen by Provider: Nov 25, 2016 Time Seen by Provider: 14:00 Subjective/Events-last exam doing ok. had emesis this am. most likely ileus. drain output decreasing and SS. no purulence. edema/third spacing improving now. urine output improving as well. Objective Exam Vital Signs Date Time Temp Pulse Resp B/P (MAP) Pulse Ox O2 Delivery O2 Flow Rate FiO2 11/25/16 12:00 97.3 11/25/16 12:00 96 Nasal Cannula 3.00 11/25/16 10:28 100 OxyMask 4.00 11/25/16 09:00 87 21 132/67 100 OxyMask 4.00 11/25/16 08:30 96 Nasal Cannula 3.00 11/25/16 08:00 92 23 143/60 99 OxyMask 4.00 11/25/16 07:00 103 11/25/16 07:00 116 19 120/70 96 OxyMask 4.00 11/25/16 06:34 93 OxyMask 4.00 11/25/16 06:00 99 17 126/73 96 Nasal Cannula 4.00 11/25/16 05:13 99 OxyMask 4.00 11/25/16 05:00 86 14 126/50 88 Nasal Cannula 4.00 11/25/16 04:19 97.6 Nasal Cannula 3.00 11/25/16 04:00 93 24 161/81 96 Nasal Cannula 3.00 11/25/16 04:00 96 Nasal Cannula 3.00 11/25/16 03:00 84 17 142/63 97 Nasal Cannula 3.00 11/25/16 02:23 97 Nasal Cannula 3.00 11/25/16 02:00 109 22 142/81 96 Nasal Cannula 3.00 11/25/16 01:00 125 10 138/61 93 Nasal Cannula 3.00 11/25/16 00:41 117 11/25/16 00:39 93 11/25/16 00:09 98.5 Nasal Cannula 3.00 11/25/16 00:00 92 Nasal Cannula 3.00 11/25/16 00:00 91 20 133/68 97 Nasal Cannula 3.00 11/24/16 23:00 110 19 148/74 96 Nasal Cannula 3.00 11/24/16 22:08 96 Nasal Cannula 3.00 11/24/16 22:00 121 18 122/64 96 Nasal Cannula 3.00 11/24/16 21:00 107 22 121/71 97 Nasal Cannula 3.00 11/24/16 20:00 100.0 107 18 145/76 92 Nasal Cannula 3.00 11/24/16 20:00 92 Nasal Cannula 3.00 11/24/16 19:00 99 11/24/16 19:00 107 20 136/72 91 Nasal Cannula 1.00 11/24/16 18:51 92 Nasal Cannula 1.00 11/24/16 18:00 98 19 126/70 93 Nasal Cannula 1.00 11/24/16 17:00 85 17 129/64 94 Nasal Cannula 1.00 11/24/16 16:00 96 Nasal Cannula 3.00 11/24/16 16:00 120 18 129/66 93 Nasal Cannula 1.00 11/24/16 16:00 97.0 11/24/16 16:00 Nasal Cannula 1.00 11/24/16 15:00 103 16 126/59 93 Nasal Cannula 3.00 I & O 11/26/16 07:00 Intake Total 50 ml Output Total 2180 ml Balance -2130 ml Capillary Refill : General Appearance: No Apparent Distress HEENT: PERRL/EOMI Neck: Full Range of Motion Respiratory: Rhonci, Wheezing Cardiovascular: Regular Rate, Rhythm Gastrointestinal: soft, distended Extremity: Normal Capillary Refill Neurologic/Psychiatric: Alert, Oriented x3 Skin: Normal Color Lymphatic: No Adenopathy Results Lab Laboratory Tests 11/25/16 00:15: Glucometer 138H 11/25/16 03:45: White Blood Count 11.6H, Red Blood Count 3.18L, Hemoglobin 8.8L, Hematocrit 28L , Mean Corpuscular Volume 87, Mean Corpuscular Hemoglobin 28, Mean Corpuscular Hemoglobin Concent 32, Red Cell Distribution Width 18.7H, Platelet Count 154, Mean Platelet Volume 10.3, Neutrophils (%) (Auto) 85H, Lymphocytes (%) (Auto) 7L , Monocytes (%) (Auto) 7, Eosinophils (%) (Auto) 1, Basophils (%) (Auto) 0, Neutrophils # (Auto) 9.9H, Lymphocytes # (Auto) 0.8L, Monocytes # (Auto) 0.8, Eosinophils # (Auto) 0.1, Basophils # (Auto) 0.0, Sodium Level 135, Potassium Level 3.4L, Chloride Level 101, Carbon Dioxide Level 26, Anion Gap 8, Blood Urea Nitrogen 15, Creatinine 0.64, Estimat Glomerular Filtration Rate > 60, BUN/ Creatinine Ratio 23, Glucose Level 170H, Calcium Level 7.5L, Phosphorus Level 2.2L, Magnesium Level 1.8, Vancomycin Level Trough 8.7L 11/25/16 08:07: Blood Gas Puncture Site LRAD, Blood Gas Patient Temperature 100.8, Arterial Blood pH 7.42, Arterial Blood Partial Pressure CO2 47H, Arterial Blood Partial Pressure O2 99H, Arterial Blood HCO3 30H, Arterial Blood Total CO2 30.9, Arterial Blood Oxygen Saturation 99, Arterial Blood Base Excess 5.4H, Har[place] Test YES-POS, Blood Gas Ventilator Setting NO, Blood Gas Inspired Oxygen 4L Microbiology 11/23/16 Blood Culture - Preliminary, Resulted No growth 11/23/16 Gram Stain - Final, Resulted 11/23/16 Body Fluid Culture - Preliminary, Resulted Escherichia Coli 11/23/16 Urine Culture - Preliminary, Resulted Klebsiella Pneumoniae Lactococcus Species Assessment/Plan Assessment/Plan Assess & Plan/Chief Complaint s/p laparoscopic right hemicolectomy. post-op ileus. continue NGT for now. monitor wound, if increase edema then get CT abdomen. add flagyl for enterococcus. STEPHANY ALY MD Nov 25, 2016 2:30 pm
--- NOTE | 2016-11-25 14:56 | Occ Therapy Progress Note ---
Therapy Progress Note Attempted OT treatment x2 this pm. On first attempt pt was sleeping and on second attempt pt declined to participate secondary to fatigue. Pt states she did not have a good night and is "just worn out today." Pt agrees to attempt therapy tomorrow. All needs met. 1, visit CHRIS THOMPSON OT Nov 25, 2016 14:56
[2016-11-25] MEDS: SODIUM CHLORIDE IV SCH ×10 (16:48)
[2016-11-25] MEDS: [UNRECOGNIZED DRUG - OTHER] IV SCH ×10 (16:48)
[2016-11-25] MEDS: SODIUM ACETATE IV SCH ×10 (16:48)
[2016-11-25] MEDS: oxyCODONE 20 MG/1 ML ORAL CONC (RoxiCODONE) CHARGE PER 1 ML PO PRN (22:28)
[2016-11-25] MEDS: MONTELUKAST 10 MG (SINGULAIR) TAB PO SCH (22:28)
[2016-11-26] VITALS (11 sets, daily range): BP systolic 113–153; BP diastolic 51–89
[2016-11-26] MEDS: METOCLOPRAMIDE INJ 10 MG/2 ML (REGLAN) IVP SCH ×5 (00:06→23:13)
[2016-11-26 05:01] LABS: BASOPHILS % (AUTO) 0 % (0-10); EOSINOPHILS # (AUTO) 0.1 10^3/uL (0.0-0.3); EOSINOPHILS % (AUTO) 1 % (0-10); LYMPHOCYTES # (AUTO) 1.1 X 10^3 (1.0-4.0); LYMPHOCYTES % (AUTO) 10 % (12-44); MEAN CORPUSCULAR HEMOGLOBIN 28 PG (25-34); MEAN CORPUSCULAR HGB CONC 32 G/DL (32-36); MEAN CORPUSCULAR VOLUME 86 FL (80-99); MEAN PLATELET VOLUME 10.8 FL (7.4-10.4); MONOCYTES # (AUTO) 1.3 X 10^3 (0.0-1.0); MONOCYTES % (AUTO) 11 % (0-12); NEUTROPHILS # (AUTO) 8.7 X 10^3 (1.8-7.8); NEUTROPHILS % (AUTO) 78 % (42-75); PLATELET COUNT 163 10^3/uL (130-400); RED BLOOD COUNT 3.21 10^6/uL (4.35-5.85); RED CELL DISTRIBUTION WIDTH 18.8 % (10.0-14.5); WHITE BLOOD COUNT 11.2 10^3/uL (4.3-11.0)
[2016-11-26 05:20] LABS: ANION GAP 8 MMOL/L (5-14); BLOOD UREA NITROGEN 20 MG/DL (7-18); BUN/CREATININE RATIO 33; CALCIUM 7.5 MG/DL (8.5-10.1); CARBON DIOXIDE 30 MMOL/L (21-32); CHLORIDE 99 MMOL/L (98-107); GFR ESTIMATED > 60; GLUCOSE 130 MG/DL (70-105); MAGNESIUM 1.7 MG/DL (1.8-2.4); PHOSPHORUS 2.4 MG/DL (2.3-4.7); SODIUM 137 MMOL/L (135-145)
[2016-11-26] MEDS: POTASSIUM CL 10MEQ/50ML IVPB 50 ML IV SCH (05:47)
[2016-11-26] MEDS: MAGNESIUM 1 GM/100 ML IVPB 100 ML IV SCH ×5 (05:47→10:31)
[2016-11-26] MEDS: KCL 20 MEQ TAB (K-DUR) PO SCH (05:47)
--- NOTE | 2016-11-26 06:46 | Pulmonary Progress Note ---
Subjective Time Seen by Provider: 06:56 Subjective/Events-last exam pt is doing better still no BM Exam Exam Vital Signs Date Time Temp Pulse Resp B/P (MAP) Pulse Ox O2 Delivery O2 Flow Rate FiO2 11/26/16 06:00 114 14 119/68 99 OxyMask 4.00 11/26/16 05:00 95 12 113/77 99 OxyMask 4.00 11/26/16 04:00 98.2 98 10 134/86 99 OxyMask 4.00 11/26/16 04:00 96 OxyMask 4.00 11/26/16 03:00 106 12 130/71 99 OxyMask 4.00 11/26/16 02:00 120 11 127/89 99 OxyMask 4.00 11/26/16 01:00 104 11/26/16 01:00 126 12 118/83 98 OxyMask 4.00 11/26/16 00:00 96.9 108 11 127/51 97 OxyMask 4.00 11/26/16 00:00 96 OxyMask 4.00 11/25/16 23:00 113 12 125/56 97 OxyMask 4.00 11/25/16 22:00 103 19 124/66 100 OxyMask 4.00 11/25/16 21:00 122 14 120/65 99 OxyMask 4.00 11/25/16 20:00 99.0 116 19 127/72 98 OxyMask 4.00 11/25/16 20:00 96 OxyMask 4.00 11/25/16 19:30 99 OxyMask 4.00 11/25/16 19:00 86 15 134/62 100 OxyMask 4.00 11/25/16 19:00 85 11/25/16 18:00 86 16 133/56 100 OxyMask 4.00 11/25/16 17:00 86 17 131/54 100 OxyMask 4.00 11/25/16 16:00 96 Nasal Cannula 3.00 11/25/16 16:00 85 15 127/53 100 OxyMask 4.00 11/25/16 16:00 98.0 11/25/16 15:00 84 15 126/51 100 OxyMask 4.00 11/25/16 14:26 100 OxyMask 4.00 11/25/16 14:00 84 15 126/55 100 OxyMask 4.00 11/25/16 13:00 88 19 135/62 100 OxyMask 4.00 11/25/16 13:00 89 11/25/16 12:00 97.3 11/25/16 12:00 96 Nasal Cannula 3.00 11/25/16 12:00 86 16 137/56 100 OxyMask 4.00 11/25/16 11:00 89 23 151/58 98 OxyMask 4.00 11/25/16 10:28 100 OxyMask 4.00 11/25/16 10:00 84 16 136/66 100 OxyMask 4.00 11/25/16 09:00 87 21 132/67 100 OxyMask 4.00 11/25/16 08:30 96 Nasal Cannula 3.00 11/25/16 08:00 92 23 143/60 99 OxyMask 4.00 11/25/16 07:00 103 11/25/16 07:00 116 19 120/70 96 OxyMask 4.00 General Appearance: No Apparent Distress HEENT: PERRL/EOMI Neck: Full Range of Motion Respiratory: Rhonci, Wheezing Cardiovascular: Regular Rate, Rhythm Gastrointestinal: soft, distended Extremity: Normal Capillary Refill Neurologic/Psychiatric: Alert, Oriented x3 Skin: Normal Color Lymphatic: No Adenopathy Results Lab Laboratory Tests 11/25/16 03:45 11/26/16 04:55 Assessment/Plan Assessment/Plan s/p right hemicolectomy POD #4 -pain control Adenocarcinoma of right colon Persistent leukocytosis POD#4 -improving-- -Consider Ct abd/pelvis r/o abscess -Pt develops hives with IV contrast -Check KUB -Culture ROSA drain output -mims culture -cipro flagyl- -D/C NS and continue TPN at 69cc/hr per pharmacy Ileus post op -IVF -NG tube -Reglan -Bowl rest Malnutrition with hypoalbuminemia and third spacing - TPN started 11/24/16 Paroxysmal Afib per RN - cardiology consulted Atelectasis r/o PNA - Doubt pneumonia -IS -SVNs-- change to easy PAP -increase activity -PT/OT GI/DVT ppx -lovenox, SCDs, and add protonix Will transfer to ICU stepdown 233 MONE GRIFFIN DO Nov 26, 2016 06:46
--- NOTE | 2016-11-26 07:59 | Progress Note-Hospitalist ---
Subjective HPI/CC On Admission Date Seen by Provider: Nov 26, 2016 Time Seen by Provider: 07:45 Subjective/Events-last exam She reports feeling better again today. No new concerns. Objective Exam Vital Signs Vital Sign - Last 12Hours 11/20/16 00:00 Pulse 80 Resp 12 B/P (MAP) 124/59 Pulse Ox 95 O2 Delivery Nasal Cannula O2 Flow Rate 2.00 Capillary Refill : General Appearance: No Apparent Distress, WD/WN Respiratory: Lungs Clear, Normal Breath Sounds Cardiovascular: No JVD, No Murmur, Irregularly Irregular Gastrointestinal: Abnormal Bowel Sounds (quiet), Distended Neurologic/Psychiatric: Alert, Oriented x3 Results/Procedures Lab Laboratory Tests 11/26/16 04:55 Assessment/Plan Assessment and Plan Assess & Plan/Chief Complaint 1. POD #6 status post right hemicolectomy for adenocarcinoma of the colon per Dr. Gaston 2. Paroxysmal a-fib- Rate has been well controlled on metoprolol (but also has NGT). Off anticoagulation for 2 week due to her GI bleed. Cards consulted appreciate recs 3. Oliguria- Improved yesterday, 54cc/kg/hr 4. UTI, bacterial peritonitis- Leukocytosis improving, afebrile yesterday Currently on Cipro/Flagyl per senstivities of Klebsiella, E. Coli, and Citrobacter 5. Asthma- reports history of asthma,Continue albuterol 6. Normocytic anemia- remains stable around 9. has been as low as 6.1 1 month ago, trend 7. Electrolyte abnormalities- on K and Mag protocol, on TPN 8.FEN/GI/PPX- On Lovenox for dvt ppx, Protonix, NPO Day 8, continue TPN PONCHO CHRISTOPHER MD Nov 26, 2016 07:59
--- NOTE | 2016-11-26 08:16 | Diagnostic Imaging Report ---
INDICATION: Recent colon surgery 0517 hours Portable upright view of the chest is obtained with comparison made to study of one day earlier. There is suboptimal inspiration. Left subclavian central venous catheter and nasogastric tube remain in place. There has been mild increase in basilar atelectasis, bilaterally. No pneumothorax or focal consolidation is seen. IMPRESSION: Mild increasing atelectasis bilaterally may be due to suboptimal inspiration. Dictated by: Dictated on workstation # [id number]
[2016-11-26] MEDS ORDERED: MAGNESIUM 1 GM/100 ML IVPB 100 ML IV SCH (08:30)
[2016-11-26] MEDS: RT-ALBUTEROL SULF 2.5 MG/3 ML PRE-MIX VIAL IH SCH ×4 (08:56→21:03)
[2016-11-26] MEDS: PANTOPRAZOLE 40 MG/10 ML (PROTONIX) VIAL IV SCH (09:05)
[2016-11-26] MEDS: ENOXAPARIN 30 MG/0.3 ML (LOVENOX) SYR SC SCH ×2 (09:05→20:36)
[2016-11-26] MEDS: SENNA W/DOCUSATE (SENOKOT S) TABLET PO SCH (09:05)
[2016-11-26] MEDS: meTOprolol SUCCINATE 100 MG (TOPROL XL) TAB PO SCH ×2 (09:06→20:35)
[2016-11-26] MEDS: amLODIPine 5 MG (NORVASC) TAB PO SCH (09:06)
[2016-11-26] MEDS: metroNIDAZOLE 500MG/100ML IVPB 100 ML IV SCH ×2 (09:10→21:48)
[2016-11-26] MEDS: CIPROFLOXACIN IV 400MG/200ML 200 ML IV SCH ×2 (09:10→20:35)
--- NOTE | 2016-11-26 09:51 | Diagnostic Imaging Report ---
PROCEDURE: CT abdomen and pelvis without contrast. TECHNIQUE: Multiple contiguous axial images were obtained through the abdomen and pelvis without the use of intravenous contrast. INDICATION: Ileus. Persistent drain output after right hemicolectomy. There are bilateral small/moderate pleural effusions and bilateral lower lobe atelectasis. There is a calcification or possibly aspirated hyperdense material measuring 1.7 cm in the posterior right lung base. The liver, the spleen, the adrenals, and the pancreas appear unremarkable. The kidneys demonstrate no hydronephrosis. Nonobstructive stone measuring 1 cm in the lower pole of the left kidney is seen. The abdominal aorta is normal in caliber. No periaortic significantly enlarged lymph node is seen. Surgical sutures are seen suggestive of ileocolic anastomosis in the right side of the abdomen. There is a surgical drain in place with no significant fluid collection around it. Stranding in the mesentery is probably related to normal postoperative findings and mild edema. There is small/moderate amount of fluid in the pelvis, presumably free fluid. No internal air content is seen to suggest an abscess. There is diverticulosis. No diverticulitis. The urinary bladder is decompressed with Nelson catheter. Advanced degenerative changes in the lumbar spine seen. IMPRESSION: 1. There is a small/ moderate amount of free fluid seen in the pelvis. This is presumed to be sterile free fluid. Correlate clinically and with followup exams if needed. 2. Diverticulosis. No diverticulitis. 3. Nonobstructive 10-cm lower pole left kidney stone. 4. Bilateral small/ moderate pleural effusions. Dictated by: Dictated on workstation # [id number]
--- NOTE | 2016-11-26 10:20 | Physical Therapy Progress Note ---
Therapy Progress Note Visit attempt at 945. Pt reported she is tired, she had a test this morning. Requested I return later. RL ZEPEDA PT Nov 26, 2016 10:20
--- NOTE | 2016-11-26 10:36 | Occupational Ther Daily Note ---
OT Current Status-Daily Note Subjective Pt stated that she did not sleep well last night and she had a test this morning. Declined to sit EOB or in recliner. Pt did agree to complete UE exercises in bed. Pt stated that her feet hurt last night and needed pain medications. Mental Status/Objective Patient Orientation: Person, Place, Time, Situation Functional [place] Measure 0=Not Assessed/NA 4=Minimal Assistance 1=Total Assistance 5=Supervision or Setup 2=Maximal Assistance 6=Modified [place] 3=Moderate Assistance 7=Complete [place] Attachments: IV, Oxygen Other Treatment Pt was able to complete 5 UE exercises 3 sets of 5 reps without resistance. Pt took extended breaks between each set. During the last two exercises pt started falling asleep, but woke easily to name. Pt fatigues easily. Pt was able to use oral sponge to wet lips and mouth by self. No c/o pain with UE exercises. After therapy, pt lying in bed sleeping. Call light/phone in reach. All needs met in room. OT Short Term Goals Short Term Goals 1=Demonstrate adherence to instructed precautions during ADL tasks. 2=Patient will verbalize/demonstrate understanding of assistive devices/ modifications for ADL. 3=Patient will improve strength/tolerance for activity to enable patient to perform ADL's. OT Air Sampling And Monitoring Goals Air Sampling And Monitoring Goals Time Frame: Dec 11, 2016 Eating (FIM): 6 Grooming(FIM): 6 Bathing(FIM): 5 Upper Body Dressing(FIM): 5 Lower Body Dressing(FIM): 5 Toileting(FIM): 6 Toilet/Commode Transfer(FIM): 6 Shower Transfer(FIM): 5 Additional Goals: 2-Verbalize Understanding, 3-ImproveStrength/Shari 1=Demonstrate adherence to instructed precautions during ADL tasks. 2=Patient will verbalize/demonstrate understanding of assistive devices/ modifications for ADL. 3=Patient will improve strength/tolerance for activity to enable patient to perform ADL's. OT Education/Plan Problem List/Assessment Pt would benefit from skilled OT to increase her independence in basic self care to allow her to safely return to her home and to decrease caregiver burden Discharge Recommendations Plan/Recommendations: Continue POC Treatment Plan/Plan of Care Patient would benefit from OT for education, treatment and training to promote independence in ADL's, mobility, safety and/or upper extremity function for ADL' s. Plan of Care: ADL Retraining, Functional Mobility, UE Funct Exercise/Act, UE Neuromus Re-Ed/Coord Treatment Duration: Dec 11, 2016 Frequency: 5 times per week Estimated Hrs Per Day: .25 hour per day Agreement: Yes Rehab Potential: Good Time/GCodes Start Time: 10:15 Stop Time: 10:25 Total Time Billed (hr/min): 10 Billed Treatment Time 1 visit-EX 1 (10 min) RL CHARLES Nov 26, 2016 10:36
--- NOTE | 2016-11-26 11:05 | Physical Therapy Daily Note ---
PT Daily Note-Current Subjective Agrees upon 2nd attempt to see pt this date. Reprot she tires easily. Transfers Functional [place] Measure 0=Not Assessed/NA 4=Minimal Assistance 1=Total Assistance 5=Supervision or Setup 2=Maximal Assistance 6=Modified [place] 3=Moderate Assistance 7=Complete IndependenceIRFPAI Quality Coding Scale 6 Independent with activity with or without an assistive device 5 Patient requires set up or clean up by helper. Patient completes activity by themselves 4 Supervision or touching assist (CGA). [place] provide cues , steadying assist 3 The helper provides less than half the effort to complete the activity 2 The helper provides more than half the effort to complete the activity 1 Dependent. The helper does all the effort to complete an activity 7 Patient refused to complete or attempt activity 9 The patient did not perform the activity before the current illness or injury 88 Not attempted due to Medical conditions or safety concerns Treatments Supine to sit EOB wtih skilled cues 75% ofthe time for sequencing and task completion and required mod assist of 2 to sit at EOB. Once seated, able to maintain balance with min assist. Sat a few minutes at EOB for work on unsupported trunk control. Sit to stand with min assist and skilled cues for hand placement. Pt took 6-7 steps to transfer bed to chair with FWW with close CGA and cues for safety. Up in chair post treatment with needs met and feet elevated. Assessment Current Status: Good Progress Once up , she does fairly well with the transfer. Significantly limited functional activity tolerance. Continue to be on oxygen and has a NG tube. PT Jail Goals Candy Feeder Goals PT Jail Goals Time Frame: Dec 11, 2016 Transfers (B,C,W/C) (FIM): 6 Gait (FIM): 6 Gait distance (FIM): 3=150 ft Gait Level of Assist: 6 Gait Assistive Device: FWW PT Plan Problem List Problem List: Activity Tolerance, Functional Strength, Safety Treatment/Plan Treatment Plan: Continue Plan of Care Treatment Plan: Bed Mobility, Education, Functional Activity Shari, Functional Strength, Gait, Safety, Therapeutic Exercise, Transfers Treatment Duration: Dec 11, 2016 Frequency: 6 times per week Estimated Hrs Per Day: .5 hour per day Patient and/or Family Agrees t: Yes Safety Risks/Education Patient Education: Transfer Techniques, Safety Issues Teaching Recipient: Patient Teaching Methods: Demonstration, Discussion Response to Teaching: Reinforcement Needed Time/GCodes Time In: 1042 Time Out: 1105 Total Billed Treatment Time: 23 Total Billed Treatment visit FA 23 RL ZEPEDA PT Nov 26, 2016 11:05
[2016-11-26] MEDS ORDERED: POTASSIUM CHLORIDE IV SCH ×9 (17:00)
[2016-11-26] MEDS ORDERED: [UNRECOGNIZED DRUG - OTHER] IV SCH ×9 (17:00)
[2016-11-26] MEDS ORDERED: SODIUM CHLORIDE IV SCH ×9 (17:00)
--- NOTE | 2016-11-26 17:02 | Progress Note (SOAP) ---
Subjective Date Seen by Provider: Nov 26, 2016 Time Seen by Provider: 16:30 Subjective/Events-last exam doing better today. passing flatus. CT normal post-surgical change. pain controlled. no fever/chills. Objective Exam Vital Signs Date Time Temp Pulse Resp B/P (MAP) Pulse Ox O2 Delivery O2 Flow Rate FiO2 11/26/16 16:00 87 13 152/60 100 OxyMask 4.00 11/26/16 15:16 98 OxyMask 4.00 11/26/16 13:00 101 11/26/16 12:20 96 Room Air 11/26/16 12:00 97.9 11/26/16 12:00 100 16 117/65 100 OxyMask 4.00 11/26/16 11:34 100 OxyMask 4.00 11/26/16 08:56 100 OxyMask 4.00 11/26/16 08:15 96 Room Air 11/26/16 08:00 93 16 134/69 100 OxyMask 4.00 11/26/16 08:00 98.8 11/26/16 07:00 85 11/26/16 06:00 114 14 119/68 99 OxyMask 4.00 11/26/16 05:00 95 12 113/77 99 OxyMask 4.00 11/26/16 04:00 98.2 98 10 134/86 99 OxyMask 4.00 11/26/16 04:00 96 OxyMask 4.00 11/26/16 03:00 106 12 130/71 99 OxyMask 4.00 11/26/16 02:00 120 11 127/89 99 OxyMask 4.00 11/26/16 01:00 104 11/26/16 01:00 126 12 118/83 98 OxyMask 4.00 11/26/16 00:00 96.9 108 11 127/51 97 OxyMask 4.00 11/26/16 00:00 96 OxyMask 4.00 11/25/16 23:00 113 12 125/56 97 OxyMask 4.00 11/25/16 22:00 103 19 124/66 100 OxyMask 4.00 11/25/16 21:00 122 14 120/65 99 OxyMask 4.00 11/25/16 20:00 99.0 116 19 127/72 98 OxyMask 4.00 11/25/16 20:00 96 OxyMask 4.00 11/25/16 19:30 99 OxyMask 4.00 11/25/16 19:00 86 15 134/62 100 OxyMask 4.00 11/25/16 19:00 85 11/25/16 18:00 86 16 133/56 100 OxyMask 4.00 11/25/16 17:00 86 17 131/54 100 OxyMask 4.00 I & O 11/27/16 07:00 Intake Total 160 ml Output Total 525 ml Balance -365 ml Capillary Refill : General Appearance: No Apparent Distress HEENT: PERRL/EOMI Neck: Full Range of Motion, Non Tender Respiratory: Rhonci, Wheezing Cardiovascular: Regular Rate, Rhythm Gastrointestinal: soft, tenderness, other (wounds clean/dry) Extremity: Normal Capillary Refill Neurologic/Psychiatric: Alert, Oriented x3 Skin: Normal Color Lymphatic: No Adenopathy Results Lab Laboratory Tests 11/26/16 04:55: White Blood Count 11.2H, Red Blood Count 3.21L, Hemoglobin 8.9L, Hematocrit 28L , Mean Corpuscular Volume 86, Mean Corpuscular Hemoglobin 28, Mean Corpuscular Hemoglobin Concent 32, Red Cell Distribution Width 18.8H, Platelet Count 163, Mean Platelet Volume 10.8H, Neutrophils (%) (Auto) 78H, Lymphocytes (%) (Auto) 10L, Monocytes (%) (Auto) 11, Eosinophils (%) (Auto) 1, Basophils (%) (Auto) 0, Neutrophils # (Auto) 8.7H, Lymphocytes # (Auto) 1.1, Monocytes # (Auto) 1.3H, Eosinophils # (Auto) 0.1, Basophils # (Auto) 0.0, Sodium Level 137, Potassium Level 4.0, Chloride Level 99, Carbon Dioxide Level 30, Anion Gap 8, Blood Urea Nitrogen 20H, Creatinine 0.60, Estimat Glomerular Filtration Rate > 60, BUN/ Creatinine Ratio 33, Glucose Level 130H, Calcium Level 7.5L, Phosphorus Level 2.4, Magnesium Level 1.7L Microbiology 11/23/16 Blood Culture - Preliminary, Resulted No growth 11/23/16 Gram Stain - Final, Resulted 11/23/16 Body Fluid Culture - Preliminary, Resulted Escherichia Coli 11/23/16 Urine Culture - Final, Complete Klebsiella Pneumoniae Escherichia Coli Lactococcus Species Assessment/Plan Assessment/Plan Assess & Plan/Chief Complaint s/p laparoscopic right hemicolectomy. post-op ileus, however slowly improving. passing flatus with decrease NGT output. will d/c NGT. CT abdomen showed normal post surgical change. no abscess. pain controlled and VSS. will transfer to floor and involve hospitalist and SS for SWB. STEPHANY ALY MD Nov 26, 2016 5:02 pm
[2016-11-26] MEDS: MONTELUKAST 10 MG (SINGULAIR) TAB PO SCH (20:35)
[2016-11-27] VITALS: BP 131/71
[2016-11-27 04:00] VITALS: BP 127/57
[2016-11-27] MEDS: oxyCODONE 20 MG/1 ML ORAL CONC (RoxiCODONE) CHARGE PER 1 ML PO PRN ×3 (04:47→21:27)
[2016-11-27] MEDS: METOCLOPRAMIDE INJ 10 MG/2 ML (REGLAN) IVP SCH ×3 (05:02→18:07)
[2016-11-27] MEDS: RT-ALBUTEROL SULF 2.5 MG/3 ML PRE-MIX VIAL IH SCH ×4 (06:44→19:15)
[2016-11-27 06:57] LABS: BASOPHILS % (AUTO) 0 % (0-10); EOSINOPHILS # (AUTO) 0.1 10^3/uL (0.0-0.3); EOSINOPHILS % (AUTO) 1 % (0-10); LYMPHOCYTES # (AUTO) 1.1 X 10^3 (1.0-4.0); LYMPHOCYTES % (AUTO) 8 % (12-44); MEAN CORPUSCULAR HEMOGLOBIN 28 PG (25-34); MEAN CORPUSCULAR HGB CONC 32 G/DL (32-36); MEAN CORPUSCULAR VOLUME 87 FL (80-99); MEAN PLATELET VOLUME 10.9 FL (7.4-10.4); MONOCYTES # (AUTO) 1.2 X 10^3 (0.0-1.0); MONOCYTES % (AUTO) 10 % (0-12); NEUTROPHILS % (AUTO) 81 % (42-75); PLATELET COUNT 181 10^3/uL (130-400); RED BLOOD COUNT 3.15 10^6/uL (4.35-5.85); RED CELL DISTRIBUTION WIDTH 19.3 % (10.0-14.5); WHITE BLOOD COUNT 12.5 10^3/uL (4.3-11.0)
[2016-11-27 07:26] LABS: ANION GAP 7 MMOL/L (5-14); BLOOD UREA NITROGEN 25 MG/DL (7-18); BUN/CREATININE RATIO 41; CALCIUM 7.6 MG/DL (8.5-10.1); CARBON DIOXIDE 32 MMOL/L (21-32); CHLORIDE 99 MMOL/L (98-107); CREATININE SERUM 0.61 MG/DL (0.60-1.30); GFR ESTIMATED > 60; GLUCOSE 116 MG/DL (70-105); MAGNESIUM 2.1 MG/DL (1.8-2.4); PHOSPHORUS 2.2 MG/DL (2.3-4.7); POTASSIUM 4.3 MMOL/L (3.6-5.0); SODIUM 138 MMOL/L (135-145)
[2016-11-27] MEDS ORDERED: SODIUM PHOSPHATE INJ ONE (08:12)
[2016-11-27] MEDS ORDERED: NS INJ ONE (08:12)
[2016-11-27 08:26] VITALS: BP 119/69
[2016-11-27] MEDS ORDERED: fentaNYL INJECTION 100 MCG/2 ML AMP ONE (08:52)
[2016-11-27] MEDS: CIPROFLOXACIN IV 400MG/200ML 200 ML IV SCH ×2 (09:07→20:04)
[2016-11-27] MEDS: metroNIDAZOLE 500MG/100ML IVPB 100 ML IV SCH ×2 (09:07→21:21)
[2016-11-27] MEDS: ENOXAPARIN 30 MG/0.3 ML (LOVENOX) SYR SC SCH ×2 (09:08→20:04)
[2016-11-27] MEDS: amLODIPine 5 MG (NORVASC) TAB PO SCH (09:08)
[2016-11-27] MEDS: PANTOPRAZOLE 40 MG/10 ML (PROTONIX) VIAL IV SCH (09:08)
[2016-11-27] MEDS: meTOprolol SUCCINATE 100 MG (TOPROL XL) TAB PO SCH ×2 (09:08→20:17)
[2016-11-27] MEDS: SENNA W/DOCUSATE (SENOKOT S) TABLET PO SCH (09:08)
--- NOTE | 2016-11-27 10:05 | Physical Therapy Progress Note ---
Therapy Progress Note Patient is on Hold from therapies until further notice per Dr. Gaston. will reorder PT when it is medically appropriate. 1 visit Hold MICHELLE ROLLINS PT Nov 27, 2016 10:05
--- NOTE | 2016-11-27 10:43 | Progress Note-Hospitalist ---
Subjective HPI/CC On Admission Date Seen by Provider: Nov 27, 2016 Time Seen by Provider: 10:40 Subjective/Events-last exam Pt reports feeling okay. She is happy to have her NGT out. Per RN fistula as one surigcal site and now has colostomy. Objective Exam Vital Signs Vital Sign - Last 12Hours 11/21/16 00:00 Temp 98.5 Pulse 112 Resp 13 B/P (MAP) 105/49 Pulse Ox 93 O2 Delivery Nasal Cannula O2 Flow Rate 2.00 Capillary Refill : General Appearance: No Apparent Distress, WD/WN Respiratory: Lungs Clear, No Accessory Muscle Use, No Respiratory Distress Cardiovascular: Regular Rate, Rhythm, No Edema, Normal Peripheral Pulses Gastrointestinal: Normal Bowel Sounds, Non Tender, Soft Neurologic/Psychiatric: Alert, Oriented x3, Normal Mood/Affect Results/Procedures Lab Laboratory Tests 11/27/16 05:10 Assessment/Plan Assessment and Plan Assess & Plan/Chief Complaint 1. POD #7 status post right hemicolectomy for adenocarcinoma of the colon per Dr. Gaston 2. Paroxysmal a-fib- On metoprolol. Off anticoagulation for 2 week due to her GI bleed. Cards consulted appreciate recs 3. Oliguria- Has discussed some today, discussed with RN to monitor and if not improved by afternoon notify me 4. UTI, bacterial peritonitis- Leukocytosis persistent, afebrile Currently on Cipro/Flagyl per senstivities of Klebsiella, E. Coli, and Citrobacter 5. Asthma- reports history of asthma,Continue albuterol 6. Normocytic anemia- remains stable around 9. has been as low as 6.1 1 month ago, trend 7. Electrolyte abnormalities- on K and Mag protocol, on TPN 8.FEN/GI/PPX- On Lovenox for dvt ppx, Protonix, NPO Day 9, continue TPN PONCHO CHRISTOPHER MD Nov 27, 2016 10:43
[2016-11-27] MEDS: fentaNYL INJECTION 100 MCG/2 ML AMP IVP PRN ×2 (11:51→20:05)
[2016-11-27 12:38] VITALS: BP 117/65
--- NOTE | 2016-11-27 13:39 | Occ Therapy Progress Note ---
Therapy Progress Note Per PT and RN pt is on hold from therapies at this time per physician request due to medical status. Will follow. CHRIS THOMPSON OT Nov 27, 2016 13:39
--- NOTE | 2016-11-27 14:26 | Progress Note (SOAP) ---
Subjective Date Seen by Provider: Nov 27, 2016 Time Seen by Provider: 08:00 Subjective/Events-last exam developed significant greenish liquid drainage per right lower abd incision last night. no fever/chills. still passing flatus. wound opened and explored. pt has developed an ileocolonic anastomosis fistula. no abscess or obstruction on CT. clinically stable. Objective Exam Vital Signs Date Time Temp Pulse Resp B/P (MAP) Pulse Ox O2 Delivery O2 Flow Rate FiO2 11/27/16 14:14 96 OxyMask 3.00 11/27/16 13:00 86 11/27/16 12:38 99.0 85 20 117/65 96 OxyMask 4.00 11/27/16 10:28 98 OxyMask 3.00 11/27/16 08:26 98.4 84 20 119/69 97 OxyMask 4.00 11/27/16 07:00 88 11/27/16 06:50 93 OxyMask 3.00 11/27/16 04:00 98.2 68 20 127/57 97 OxyMask 4.00 11/27/16 00:59 74 11/27/16 00:00 97.0 71 19 131/71 97 OxyMask 4.00 11/26/16 20:00 OxyMask 3.50 11/26/16 19:32 82 11/26/16 19:00 98.9 85 13 153/76 98 OxyMask 4.00 11/26/16 16:00 87 13 152/60 100 OxyMask 4.00 11/26/16 16:00 96 Room Air 11/26/16 15:16 98 OxyMask 4.00 I & O 11/28/16 07:00 Intake Total 440 ml Output Total 355 ml Balance 85 ml Capillary Refill : General Appearance: No Apparent Distress HEENT: PERRL/EOMI Neck: Full Range of Motion Respiratory: Chest Non Tender, Rhonci, Wheezing Cardiovascular: Regular Rate, Rhythm Gastrointestinal: normal bowel sounds, soft, other (succus entericus drainage per RLQ incision. fistula) Extremity: Normal Capillary Refill Neurologic/Psychiatric: Alert, Oriented x3 Skin: Normal Color Lymphatic: No Adenopathy Results Lab Laboratory Tests 11/27/16 05:10: White Blood Count 12.5H, Red Blood Count 3.15L, Hemoglobin 8.7L, Hematocrit 27L , Mean Corpuscular Volume 87, Mean Corpuscular Hemoglobin 28, Mean Corpuscular Hemoglobin Concent 32, Red Cell Distribution Width 19.3H, Platelet Count 181, Mean Platelet Volume 10.9H, Neutrophils (%) (Auto) 81H, Lymphocytes (%) (Auto) 8L, Monocytes (%) (Auto) 10, Eosinophils (%) (Auto) 1, Basophils (%) (Auto) 0, Neutrophils # (Auto) 10.0H, Lymphocytes # (Auto) 1.1, Monocytes # (Auto) 1.2H, Eosinophils # (Auto) 0.1, Basophils # (Auto) 0.0, Sodium Level 138, Potassium Level 4.3, Chloride Level 99, Carbon Dioxide Level 32, Anion Gap 7, Blood Urea Nitrogen 25H, Creatinine 0.61, Estimat Glomerular Filtration Rate > 60, BUN/ Creatinine Ratio 41, Glucose Level 116H, Calcium Level 7.6L, Phosphorus Level 2.2L, Magnesium Level 2.1 Microbiology 11/23/16 Blood Culture - Preliminary, Resulted No growth 11/23/16 Gram Stain - Final, Complete 11/23/16 Body Fluid Culture - Final, Complete Escherichia Coli 11/23/16 Urine Culture - Final, Complete Klebsiella Pneumoniae Escherichia Coli Lactococcus Species Assessment/Plan Assessment/Plan Assess & Plan/Chief Complaint s/p laparoscopic right hemicolectomy. 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 no abscess or obstruction. passing flatus. no fevers. CT abdomen showed normal post surgical change. no abscess. will treat fistula now with low residue diet/TPN and abx. protect surrounding skin with ostomy applicance. pain controlled and VSS. will transfer to floor and involve hospitalist and SS for SWB vs. rehab STEPHANY ALY MD Nov 27, 2016 2:26 pm
[2016-11-27 16:00] VITALS: BP 115/67
[2016-11-27] MEDS: SODIUM CHLORIDE IV SCH ×9 (18:05)
[2016-11-27] MEDS: [UNRECOGNIZED DRUG - OTHER] IV SCH ×9 (18:05)
[2016-11-27] MEDS: POTASSIUM CHLORIDE IV SCH ×9 (18:05)
[2016-11-27] MEDS: MONTELUKAST 10 MG (SINGULAIR) TAB PO SCH (20:04)
[2016-11-27 20:11] VITALS: BP 135/74
[2016-11-28] VITALS: BP 135/60
[2016-11-28] MEDS: METOCLOPRAMIDE INJ 10 MG/2 ML (REGLAN) IVP SCH ×5 (00:01→23:56)
[2016-11-28 04:00] VITALS: BP 145/64
[2016-11-28 05:35] LABS: BASOPHILS # (AUTO) 0.1 10^3/uL (0.0-0.1); BASOPHILS % (AUTO) 0 % (0-10); EOSINOPHILS # (AUTO) 0.2 10^3/uL (0.0-0.3); EOSINOPHILS % (AUTO) 1 % (0-10); LYMPHOCYTES % (AUTO) 6 % (12-44); MEAN CORPUSCULAR HEMOGLOBIN 28 PG (25-34); MEAN CORPUSCULAR HGB CONC 32 G/DL (32-36); MEAN CORPUSCULAR VOLUME 87 FL (80-99); MEAN PLATELET VOLUME 10.5 FL (7.4-10.4); MONOCYTES # (AUTO) 1.8 X 10^3 (0.0-1.0); MONOCYTES % (AUTO) 11 % (0-12); NEUTROPHILS # (AUTO) 13.2 X 10^3 (1.8-7.8); NEUTROPHILS % (AUTO) 81 % (42-75); PLATELET COUNT 204 10^3/uL (130-400); RED BLOOD COUNT 2.93 10^6/uL (4.35-5.85); RED CELL DISTRIBUTION WIDTH 19.4 % (10.0-14.5); WHITE BLOOD COUNT 16.3 10^3/uL (4.3-11.0)
[2016-11-28 05:52] LABS: ANION GAP 6 MMOL/L (5-14); BLOOD UREA NITROGEN 30 MG/DL (7-18); BUN/CREATININE RATIO 42; CALCIUM 7.4 MG/DL (8.5-10.1); CARBON DIOXIDE 31 MMOL/L (21-32); CHLORIDE 100 MMOL/L (98-107); CREATININE SERUM 0.71 MG/DL (0.60-1.30); GFR ESTIMATED > 60; GLUCOSE 136 MG/DL (70-105); MAGNESIUM 2.1 MG/DL (1.8-2.4); PHOSPHORUS 3.4 MG/DL (2.3-4.7); POTASSIUM 4.5 MMOL/L (3.6-5.0); SODIUM 137 MMOL/L (135-145)
[2016-11-28] MEDS: RT-ALBUTEROL SULF 2.5 MG/3 ML PRE-MIX VIAL IH SCH ×4 (06:38→19:03)
[2016-11-28 07:54] VITALS: BP 115/55
[2016-11-28] MEDS: meTOprolol SUCCINATE 100 MG (TOPROL XL) TAB PO SCH ×2 (09:20→20:20)
[2016-11-28] MEDS: ENOXAPARIN 30 MG/0.3 ML (LOVENOX) SYR SC SCH ×2 (09:20→20:20)
[2016-11-28] MEDS: CIPROFLOXACIN IV 400MG/200ML 200 ML IV SCH ×2 (09:20→20:20)
[2016-11-28] MEDS: PANTOPRAZOLE 40 MG/10 ML (PROTONIX) VIAL IV SCH (09:20)
[2016-11-28] MEDS: SENNA W/DOCUSATE (SENOKOT S) TABLET PO SCH (09:20)
[2016-11-28] MEDS: amLODIPine 5 MG (NORVASC) TAB PO SCH (09:20)
[2016-11-28] MEDS: fentaNYL INJECTION 100 MCG/2 ML AMP IVP PRN ×8 (09:21→23:56)
--- NOTE | 2016-11-28 09:45 | Progress Note-Hospitalist ---
Subjective HPI/CC On Admission Date Seen by Provider: Nov 28, 2016 Time Seen by Provider: 09:20 Subjective/Events-last exam Pt reports feeling better today. She still very very weak but overall feels she' s improving. She was able to drink clear liquids yesterday and did well. Objective Exam Vital Signs Vital Sign - Last 12Hours 11/22/16 00:00 Temp 99.9 Pulse 101 Resp 15 B/P (MAP) 131/58 Pulse Ox 95 O2 Delivery Nasal Cannula O2 Flow Rate 2.00 Capillary Refill : General Appearance: No Apparent Distress, WD/WN Respiratory: Lungs Clear, No Accessory Muscle Use, Other (on oxygen) Cardiovascular: No Murmur, Irregularly Irregular Extremity: Non Tender, No Calf Tenderness, Pedal Edema Neurologic/Psychiatric: Alert, Oriented x3 Results/Procedures Lab Laboratory Tests 11/28/16 05:23 Assessment/Plan Assessment and Plan Assess & Plan/Chief Complaint 1. POD #8 status post right hemicolectomy for adenocarcinoma of the colon per Dr. Gaston 2. Paroxysmal a-fib- On metoprolol. Off anticoagulation for 2 weeks due to her GI bleed. Cards consulted appreciate recs 3. Oliguria- Marginal, discussed again with nurse- will give small bolus as appears intravascularly deplete 4. UTI, bacterial peritonitis- Leukocytosis persistent, afebrile Currently on Cipro/Flagyl per senstivities of Klebsiella, E. Coli, and Citrobacter 5. Asthma- reports history of asthma,Continue albuterol 6. Normocytic anemia- remains stable around 8-9. has been as low as 6.1 1 month ago, trend 7. Electrolyte abnormalities- on K and Mag protocol, on TPN 8.FEN/GI/PPX- On Lovenox for dvt ppx, Protonix, CLD, continue TPN PONCHO CHRISTOPHER MD Nov 28, 2016 09:45
[2016-11-28] MEDS ORDERED: NS IV 1000 ML 250 ML IV SCH (10:00)
--- NOTE | 2016-11-28 10:38 | Progress Note (SOAP) ---
Subjective Date Seen by Provider: Nov 28, 2016 Time Seen by Provider: 10:20 Subjective/Events-last exam Patient seen with Dr. Gaston. Patient reports that she feels like she is improving. Still Complains of diffuse abdominal pain. no N/V. No BM. Reports that she feels slightly more SOB today than yesterday and has more of a cough. Tolerating diet. Review of Systems General: Fatigue Pulmonary: Cough Gastrointestinal: Abdominal Pain, No: Nausea, Vomiting Objective Exam Vital Signs Date Time Temp Pulse Resp B/P (MAP) Pulse Ox O2 Delivery O2 Flow Rate FiO2 11/28/16 07:54 100.1 85 18 115/55 97 Nasal Cannula 4.00 11/28/16 07:00 84 11/28/16 06:40 94 Nasal Cannula 3.50 11/28/16 04:00 98.2 86 22 145/64 96 Nasal Cannula 4.00 11/28/16 01:00 86 11/28/16 00:00 98.6 88 18 135/60 96 Nasal Cannula 4.00 11/27/16 20:11 98.9 88 19 135/74 96 Nasal Cannula 4.00 11/27/16 20:04 99.1 11/27/16 20:00 96 Nasal Cannula 4.00 11/27/16 19:27 85 11/27/16 19:15 96 OxyMask 3.50 11/27/16 16:00 99.1 85 19 115/67 97 OxyMask 4.00 11/27/16 14:14 96 OxyMask 3.00 11/27/16 13:00 86 11/27/16 12:38 99.0 85 20 117/65 96 OxyMask 4.00 Capillary Refill : General Appearance: No Apparent Distress, WD/WN HEENT: PERRL/EOMI, TMs Normal, Normal ENT Inspection, Pharynx Normal Neck: Full Range of Motion, Normal Inspection, Non Tender, Supple Respiratory: Chest Non Tender, Lungs Clear, Normal Breath Sounds, No Accessory Muscle Use, No Respiratory Distress Cardiovascular: Regular Rate, Rhythm, Normal Peripheral Pulses Gastrointestinal: soft, tenderness, other (RLQ drain with clear SS drainage noted.) Extremity: Normal Capillary Refill, Non Tender, No Calf Tenderness, Swelling ( approx 1+) Neurologic/Psychiatric: Alert, Oriented x3 Skin: Normal Color, Warm/Dry, Other (Right side abdominal wound found to have fistula with appliance noted with liquid green contents in bag. Supraumbilical incision C/D/I.) Results Lab Laboratory Tests 11/28/16 05:23: White Blood Count 16.3H, Red Blood Count 2.93L, Hemoglobin 8.2L, Hematocrit 26L , Mean Corpuscular Volume 87, Mean Corpuscular Hemoglobin 28, Mean Corpuscular Hemoglobin Concent 32, Red Cell Distribution Width 19.4H, Platelet Count 204, Mean Platelet Volume 10.5H, Neutrophils (%) (Auto) 81H, Lymphocytes (%) (Auto) 6L, Monocytes (%) (Auto) 11, Eosinophils (%) (Auto) 1, Basophils (%) (Auto) 0, Neutrophils # (Auto) 13.2H, Lymphocytes # (Auto) 1.0, Monocytes # (Auto) 1.8H, Eosinophils # (Auto) 0.2, Basophils # (Auto) 0.1, Sodium Level 137, Potassium Level 4.5, Chloride Level 100, Carbon Dioxide Level 31, Anion Gap 6, Blood Urea Nitrogen 30H, Creatinine 0.71, Estimat Glomerular Filtration Rate > 60, BUN/ Creatinine Ratio 42, Glucose Level 136H, Calcium Level 7.4L, Phosphorus Level 3.4, Magnesium Level 2.1 Microbiology 11/23/16 Blood Culture - Preliminary, Resulted No growth 11/23/16 Gram Stain - Final, Complete 11/23/16 Body Fluid Culture - Final, Complete Escherichia Coli 11/23/16 Urine Culture - Final, Complete Klebsiella Pneumoniae Escherichia Coli Lactococcus Species Assessment/Plan Assessment/Plan Assess & Plan/Chief Complaint s/p laparoscopic right hemicolectomy. WBC increased to 16 and temp of 100 will repeat chest X-ray. 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 no abscess or obstruction. passing flatus. CT abdomen showed normal post surgical change. no abscess. will treat fistula now with low residue diet/TPN and abx. protect surrounding skin with ostomy applicance. Continue with medical management. NUBIA AREVALO [employer] Nov 28, 2016 10:38
[2016-11-28] MEDS: metroNIDAZOLE 500MG/100ML IVPB 100 ML IV SCH ×2 (10:58→21:34)
--- NOTE | 2016-11-28 11:05 | Physical Therapy Daily Note ---
PT Daily Note-Current Subjective Agrees., Transfers Functional Terrell Measure 0=Not Assessed/NA 4=Minimal Assistance 1=Total Assistance 5=Supervision or Setup 2=Maximal Assistance 6=Modified Terrell 3=Moderate Assistance 7=Complete IndependenceIRFPAI Quality Coding Scale 6 Independent with activity with or without an assistive device 5 Patient requires set up or clean up by helper. Patient completes activity by themselves 4 Supervision or touching assist (CGA). [place] provide cues , steadying assist 3 The helper provides less than half the effort to complete the activity 2 The helper provides more than half the effort to complete the activity 1 Dependent. The helper does all the effort to complete an activity 7 Patient refused to complete or attempt activity 9 The patient did not perform the activity before the current illness or injury 88 Not attempted due to Medical conditions or safety concerns Treatments Sup to sit EOB with max assist. Sat EOB a few minutes. Sit to stand with min assist. Transfer bed to chair taking 7-8 steps with FWW with min assist. UP in chair post treatmeht with needs met, feet elevated, O2 in situ and nurse present. Assessment Pitting edema noted. Tolerated fair and seemed to feel better once she was up. PT Longterm Goals Time Study Analyst Goals PT Time Study Analyst Goals Time Frame: Dec 11, 2016 Transfers (B,C,W/C) (FIM): 6 Gait (FIM): 6 Gait distance (FIM): 3=150 ft Gait Level of Assist: 6 Gait Assistive Device: FWW PT Plan Problem List Problem List: Activity Tolerance, Functional Strength Treatment/Plan Treatment Plan: Continue Plan of Care Treatment Plan: Bed Mobility, Education, Functional Activity Shari, Functional Strength, Gait, Safety, Therapeutic Exercise, Transfers Treatment Duration: Dec 11, 2016 Frequency: 6 times per week Estimated Hrs Per Day: .5 hour per day Patient and/or Family Agrees t: Yes Safety Risks/Education Patient Education: Safety Issues Teaching Recipient: Patient Teaching Methods: Discussion Response to Teaching: Reinforcement Needed Time/GCodes Time In: 1040 Time Out: 1103 Total Billed Treatment Time: 23 Total Billed Treatment visit FA 23 RL ZEPEDA PT Nov 28, 2016 11:05
[2016-11-28 12:00] VITALS: BP 127/61
--- NOTE | 2016-11-28 13:22 | Consultation-Cardiology ---
HPI-Cardiology Cardiology Consultation: Date of Consultation 11/28/16 Date of Admission Attending Physician Dick Gaston MD Admitting Physician Eddy Max MD Consulting Physician Deidre NAVARRO MD HPI: Time Seen by Provider: 13:17 Chief Complaint: Atrial fibrillation This is a 81-year-old lady with history of paroxysmal atrial fibrillation on rate control and anticoagulation. She had profound anemia and was found to have GI malignancy. Status post surgery. Surgery was performed around a week ago. Patient still admitted secondary to weakness. Eliquis was discontinued. Patient continues to be on rate control. Currently in sinus rhythm. Does not complain of any chest symptoms. She is a patient of Dr. Gallegos. Review of Systems-Cardiology Review of Systems Constitutional: No As described under HPI, No no symptoms reported, No chills, No fever, No lightheadedness, No malaise, No tiredness, No weight loss, No weight gain, No other Eyes: No As described under HPI, No no symptoms reported, No blindness, No blurred vision, No contact lenses, No drainage, No decreased acuity, No foreign body sensation, No glasses, No inflammation, No pain, No photophobia, No previous injury, No shadows, No tunnel vision, No other, No vision change Ears/Nose/Throat: No As described under HPI, No no symptoms reported, No chronic hearing loss, No epistaxis, No ear discharge, No ear pain, No loose teeth, No mouth pain, No mouth swelling, No nasal drainage, No nose pain, No recent hearing loss, No throat pain, No throat swelling, No ulcerations, No other Respiratory: No no symptoms reported, No As described under HPI, No cough, No orthopnea, No shortness of breath, No SOB with excertion, No SOB at rest, No stridor, No wheezing, No other Cardiovascular: irregular heart rate Gastrointestinal: abdominal pain Genitourinary: No no symptoms reported, No As described under HPI, No burning, No dysuria, No discharge, No frequency, No flank pain, No hematuria, No incontinence, No pain, No urgency, No other, No urine frequency changes, No urine coloration changes Musculoskeletal: No no symptoms reported, No As describe under HPI, No back pain, No gout, No joint pain, No joint swelling, No muscle pain, No muscle stiffness, No neck pain, No other Skin: No no symptoms reported, No As described under HPI, No change in color, No change in hair/nails, No dryness, No lesions, No lumps, No rash, No other, No skin related problems, No ulcerations, No rash on exposed areas, No ulcerations on exposed areas All Other Systems Reviewed Negative Unless Noted: Yes [id number] Hx Patient Social History Employed/Student: retired Alcohol Use: Denies Use Recreational Drug Use: No Smoking Status: Never a Smoker Recent Foreign Travel: No Recent Infectious Disease Expo: No Physical Abuse Screen: No Sexual Abuse: No Immunizations Up To Date Date of Pneumonia Vaccine: Dec 06, 2012 Past Medical History PMH As described under Assessment. Family Medical History Family History: Cancer around heart 19 FATHER Cardiovascular disease 19 MOTHER Congenital heart disease 19 MOTHER Hypertension 19 MOTHER Respiratory disorder 19 FATHER (lung cancer) Allergies and Home Medications Allergies Coded Allergies: Penicillins (Unverified Allergy, Mild, 10/26/08) iodine (Unverified Allergy, Mild, 10/26/08) Sulfa (Sulfonamide Antibiotics) (Verified Allergy, Unknown, 11/06/16) sulfamethoxazole (Verified Allergy, Unknown, 12/05/14) trimethoprim (Verified Allergy, Unknown, 12/05/14) Home Medications Acetaminophen 500 Mg Tablet, 500 MG PO BID, (Reported) Amlodipine Besylate 5 Mg Tablet, 5 MG PO DAILY, (Reported) Calcium Carbonate/Vitamin D3 1 Each Tablet, 1 TAB PO DAILY, (Reported) Cholecalciferol (Vitamin D3) 1,000 Unit Capsule, 1,000 UNIT PO DAILY, (Reported) Cyanocobalamin (Vitamin B-12) 1,000 Mcg Tablet, 1,000 MCG PO DAILY, (Reported) Metoprolol Succinate 100 Mg Tab.er.24h, 100 MG PO BID, (Reported) Montelukast Sodium 10 Mg Tablet, 10 MG PO HS, (Reported) Multivitamin 1 Each Tablet, 1 TAB PO DAILY, (Reported) Potassium Gluconate 99 Mg Tablet, 99 MG PO DAILY, (Reported) Physical Exam-Cardiology Physical Exam Vital Signs/I&O Vital Sign - Last 12Hours 11/28/16 11/28/16 11/28/16 11/28/16 04:00 06:40 07:00 07:54 Temp 98.2 100.1 Pulse 86 84 85 Resp 22 18 B/P (MAP) 145/64 115/55 Pulse Ox 96 94 97 O2 Delivery Nasal Cannula Nasal Cannula Nasal Cannula O2 Flow Rate 4.00 3.50 4.00 11/28/16 12:00 Temp 99.9 Pulse 80 Resp 20 B/P (MAP) 127/61 Pulse Ox 96 O2 Delivery Nasal Cannula O2 Flow Rate 4.00 Capillary Refill : Constitutional: No appears stated age, No AAO x 3, No apparent distress, No PERRL, No well-developed, No well-nourished, No other HEENT: No PERRL, No normal ENT inspection, No TMs normal, No pharynx normal, No scleral icterus (R), No scleral icterus (L), No pale conjunctivae (R), No pale conjunctivae (L), No photophobia, No TM abnormal (R), No TM abnormal (L), No pharyngeal erythema, No tonsillar exudate, No other, No discharge, No EOMI, No hearing is well preserved, No hard of hearing, No oral hygience is good, No ulceration, No xanthelasmas are seen Neck: No non-tender, No full range of motion, No supple, No normal inspection, No carotid bruit, No limited range of motion, No lymphadenopathy (R), No lymphadenopathy (L), No tender lateral, No tender midline, No thyromegaly, No other, No carotid pulses are 2 + bilaterally, No with good upstrokes Respiratory: No accessory muscle use, No respiratory distress, No chest tender , No chest expansion is symmetric, No chest is bilaterally symmetric, No lungs clear to percussion, No lungs clear to auscultation, No crackles, No rhonchi, No rales, No stridor, No wheezing, No pleural rub, No other Cardiovascular: irregularly irregular Gastrointestinal: tenderness Rectal: deferred Extremities: No normal range of motion, No non-tender, No normal inspection, No pedal edema, No calf tenderness, No normal capillary refill, No pelvis stable , No calf tenderness, No inflammation, No pedal edema, No slow capillary refill , No swelling, No other, No abrasion, No clubbing, No cyanosis, No ecchymosis, No laceration, No no lower extremity edema bilateral, No significant edema, No tenderness, No wound Neurologic/Psychiatric: No sex crimes detective II-XII nml as tested, No no motor/sensory deficits, No alert, No normal mood/affect, No oriented x 3, No abnormal cerebellar tests, No abnormal sex crimes detective II-XII, No abnormal gait, No aphasia, No EOM palsy, No facial droop, No motor weakness, No sensory deficit, No depressed affect, No disoriented x 3, No other, No grossly intact, No power is 5/5 both on sides Skin: No normal color, No warm/dry, No cyanosis, No cool, No diaphoresis, No damp, No ecchymosis, No jaundice, No mottled, No pallor, No rash, No tattoos/ piercings, No ulcerations, No rash on exposed areas, No ulcerations on exposed areas, No other Data Review Labs Laboratory Tests 11/28/16 05:23: White Blood Count 16.3H, Red Blood Count 2.93L, Hemoglobin 8.2L, Hematocrit 26L , Mean Corpuscular Volume 87, Mean Corpuscular Hemoglobin 28, Mean Corpuscular Hemoglobin Concent 32, Red Cell Distribution Width 19.4H, Platelet Count 204, Mean Platelet Volume 10.5H, Neutrophils (%) (Auto) 81H, Lymphocytes (%) (Auto) 6L, Monocytes (%) (Auto) 11, Eosinophils (%) (Auto) 1, Basophils (%) (Auto) 0, Neutrophils # (Auto) 13.2H, Lymphocytes # (Auto) 1.0, Monocytes # (Auto) 1.8H, Eosinophils # (Auto) 0.2, Basophils # (Auto) 0.1, Sodium Level 137, Potassium Level 4.5, Chloride Level 100, Carbon Dioxide Level 31, Anion Gap 6, Blood Urea Nitrogen 30H, Creatinine 0.71, Estimat Glomerular Filtration Rate > 60, BUN/ Creatinine Ratio 42, Glucose Level 136H, Calcium Level 7.4L, Phosphorus Level 3.4, Magnesium Level 2.1 Microbiology 11/23/16 Blood Culture - Final, Complete No growth 11/23/16 Gram Stain - Final, Complete 11/23/16 Body Fluid Culture - Final, Complete Escherichia Coli 11/23/16 Urine Culture - Final, Complete Klebsiella Pneumoniae Escherichia Coli Lactococcus Species ECG Impression ECG Initial ECG Rhythm: Normal Sinus A/P-Cardiology Assessment/Admission Diagnosis Profound anemia, GI malignancy status post surgery, Paroxysmal atrial fibrillation Plan Profound anemia, GI malignancy, status post surgery. Defer to primary team. PAF documented during hosp of early Dec 2014. Was on Eliquis. Which was discontinued due to profound anemia. Eliquis will only be restarted if okay with the surgery team. Continue rate control with long-acting metoprolol. Elevated BMI of approx 32 No evidence of ischemia or infarction on MPI of 12/11/14; LVEF was 74% Echo of 12/07/14 showed LVEF 55%, mod LAE, mild TR, PASP 35 mmHg H/o hypertension: Continue antihypertensives. Dr. Gallegos to take over care on Wednesday. Thank you for your consultation. Please call me if you have any questions. Juan Navarro MD, FACP, FACC, FSCAI, FHRS, CCDS Interventional Cardiology Cardiac Electrophysiology Vascular Medicine and Endovascular Interventions Deidre NAVARRO MD Nov 28, 2016 1:22 pm
[2016-11-28] MEDS: ONDANSETRON 4 MG/2 ML (SDV) Z0FRAN IVP PRN (14:05)
[2016-11-28] MEDS: POTASSIUM CHLORIDE IV SCH ×9 (16:30)
[2016-11-28] MEDS: SODIUM CHLORIDE IV SCH ×9 (16:30)
[2016-11-28] MEDS: [UNRECOGNIZED DRUG - OTHER] IV SCH ×9 (16:30)
[2016-11-28 16:34] VITALS: BP 179/67
--- NOTE | 2016-11-28 17:26 | Diagnostic Imaging Report ---
INDICATION: Shortness of air, leukocytosis, fever. TECHNIQUE: Single-view chest, 10:40 a.m. CORRELATION STUDY: None. FINDINGS: Previously noted gastric tube has been removed with left-sided central line unchanged. Heart size is enlarged but stable. Vasculature is overall stable. There does appear to be some improvement in aeration of the lung plasencia. There is likely some residual effusion along with atelectasis or infiltrate at the lung bases, however, does remain left greater than right. There may be slight increasing infiltrative type density over the right nati. Note is made of prominent gas-distended bowel in the upper abdomen. IMPRESSION: The lung bases overall appear slightly improved with likely decrease in size of effusions along with atelectasis or infiltrate. However, there does appear to be slightly more focal increased infiltrate of the right perihilar region. Dictated by: Dictated on workstation # [id number]
[2016-11-28 20:10] VITALS: BP 126/71
[2016-11-28] MEDS: MONTELUKAST 10 MG (SINGULAIR) TAB PO SCH (20:20)
[2016-11-28] MEDS ORDERED: ENOXAPARIN 30 MG/0.3 ML (LOVENOX) SYR SC SCH (21:00)
[2016-11-29] VITALS: BP 138/65
[2016-11-29] MEDS: ONDANSETRON 4 MG/2 ML (SDV) Z0FRAN IVP PRN (00:44)
[2016-11-29 04:00] VITALS: BP 135/63
[2016-11-29] MEDS: METOCLOPRAMIDE INJ 10 MG/2 ML (REGLAN) IVP SCH ×3 (05:31→18:02)
[2016-11-29 05:41] LABS: BASOPHILS % (AUTO) 0 % (0-10); EOSINOPHILS # (AUTO) 0.1 10^3/uL (0.0-0.3); EOSINOPHILS % (AUTO) 0 % (0-10); LYMPHOCYTES % (AUTO) 5 % (12-44); MEAN CORPUSCULAR HEMOGLOBIN 28 PG (25-34); MEAN CORPUSCULAR HGB CONC 32 G/DL (32-36); MEAN CORPUSCULAR VOLUME 86 FL (80-99); MEAN PLATELET VOLUME 10.3 FL (7.4-10.4); MONOCYTES # (AUTO) 1.6 X 10^3 (0.0-1.0); MONOCYTES % (AUTO) 8 % (0-12); NEUTROPHILS # (AUTO) 17.6 X 10^3 (1.8-7.8); NEUTROPHILS % (AUTO) 87 % (42-75); PLATELET COUNT 244 10^3/uL (130-400); RED BLOOD COUNT 2.92 10^6/uL (4.35-5.85); RED CELL DISTRIBUTION WIDTH 19.2 % (10.0-14.5); WHITE BLOOD COUNT 20.3 10^3/uL (4.3-11.0)
[2016-11-29 05:53] LABS: ANION GAP 7 MMOL/L (5-14); BLOOD UREA NITROGEN 32 MG/DL (7-18); BUN/CREATININE RATIO 43; CALCIUM 7.4 MG/DL (8.5-10.1); CARBON DIOXIDE 28 MMOL/L (21-32); CHLORIDE 102 MMOL/L (98-107); CREATININE SERUM 0.74 MG/DL (0.60-1.30); GFR ESTIMATED > 60; GLUCOSE 137 MG/DL (70-105); MAGNESIUM 2.1 MG/DL (1.8-2.4); PHOSPHORUS 3.5 MG/DL (2.3-4.7); POTASSIUM 4.6 MMOL/L (3.6-5.0); SODIUM 137 MMOL/L (135-145)
[2016-11-29] MEDS: RT-ALBUTEROL SULF 2.5 MG/3 ML PRE-MIX VIAL IH SCH ×4 (07:25→19:42)
[2016-11-29] MEDS: oxyCODONE 20 MG/1 ML ORAL CONC (RoxiCODONE) CHARGE PER 1 ML PO PRN ×3 (08:12→18:02)
[2016-11-29] MEDS: PANTOPRAZOLE 40 MG/10 ML (PROTONIX) VIAL IV SCH (08:13)
[2016-11-29] MEDS: amLODIPine 5 MG (NORVASC) TAB PO SCH (08:13)
[2016-11-29] MEDS: meTOprolol SUCCINATE 100 MG (TOPROL XL) TAB PO SCH ×2 (08:13→20:40)
[2016-11-29] MEDS: ENOXAPARIN 30 MG/0.3 ML (LOVENOX) SYR SC SCH ×2 (08:13→20:40)
[2016-11-29] MEDS: SENNA W/DOCUSATE (SENOKOT S) TABLET PO SCH (08:13)
[2016-11-29] MEDS: CIPROFLOXACIN IV 400MG/200ML 200 ML IV SCH (08:14)
[2016-11-29] MEDS: metroNIDAZOLE 500MG/100ML IVPB 100 ML IV SCH (08:14)
[2016-11-29 08:26] VITALS: BP 125/69
--- NOTE | 2016-11-29 09:58 | Progress Note (SOAP) ---
Subjective Date Seen by Provider: Nov 29, 2016 Time Seen by Provider: 09:45 Subjective/Events-last exam Patient seen with Dr. Gaston. Patient reports that she is continuing to improve with only abdominal tenderness. No N/V. Reports that she has been eating ice cream but not much else, but is tolerating it. No BM or flatus per rectum. Does report sweats. Reports breathing is ok with no issues. Review of Systems General: Night Sweats Gastrointestinal: No: Nausea, Vomiting, Abdominal Pain Objective Exam Vital Signs Date Time Temp Pulse Resp B/P (MAP) Pulse Ox O2 Delivery O2 Flow Rate FiO2 11/29/16 08:26 97.1 88 16 125/69 92 Nasal Cannula 3.00 11/29/16 07:25 92 Nasal Cannula 3.00 11/29/16 04:00 97.7 86 20 135/63 93 Nasal Cannula 4.00 11/29/16 01:00 90 11/29/16 00:00 97.5 87 20 138/65 94 Nasal Cannula 4.00 11/28/16 20:30 96 Nasal Cannula 4.00 11/28/16 20:10 99.3 89 20 126/71 96 Nasal Cannula 4.00 11/28/16 19:03 92 Nasal Cannula 3.50 11/28/16 19:00 87 11/28/16 16:34 99.3 84 20 179/67 95 Nasal Cannula 4.00 11/28/16 14:27 Nasal Cannula 3.50 11/28/16 13:02 79 11/28/16 12:00 99.9 80 20 127/61 96 Nasal Cannula 4.00 Capillary Refill : General Appearance: No Apparent Distress, WD/WN HEENT: PERRL/EOMI, TMs Normal, Normal ENT Inspection, Pharynx Normal Neck: Full Range of Motion, Normal Inspection, Non Tender, Supple Respiratory: Chest Non Tender, Lungs Clear, Normal Breath Sounds, No Accessory Muscle Use, No Respiratory Distress Cardiovascular: Regular Rate, Rhythm Gastrointestinal: soft, tenderness, other (Right wound/fistula with liquid brown/green drainage with gas production noted in collection appliance.) Extremity: Normal Capillary Refill, Normal Range of Motion, Non Tender, No Calf Tenderness, Swelling Neurologic/Psychiatric: Alert, Oriented x3 Skin: Normal Color, Warm/Dry Results Lab Laboratory Tests 11/29/16 05:30: White Blood Count 20.3H, Red Blood Count 2.92L, Hemoglobin 8.1L, Hematocrit 25L , Mean Corpuscular Volume 86, Mean Corpuscular Hemoglobin 28, Mean Corpuscular Hemoglobin Concent 32, Red Cell Distribution Width 19.2H, Platelet Count 244, Mean Platelet Volume 10.3, Neutrophils (%) (Auto) 87H, Lymphocytes (%) (Auto) 5L , Monocytes (%) (Auto) 8, Eosinophils (%) (Auto) 0, Basophils (%) (Auto) 0, Neutrophils # (Auto) 17.6H, Lymphocytes # (Auto) 1.0, Monocytes # (Auto) 1.6H, Eosinophils # (Auto) 0.1, Basophils # (Auto) 0.0, Sodium Level 137, Potassium Level 4.6, Chloride Level 102, Carbon Dioxide Level 28, Anion Gap 7, Blood Urea Nitrogen 32H, Creatinine 0.74, Estimat Glomerular Filtration Rate > 60, BUN/ Creatinine Ratio 43, Glucose Level 137H, Calcium Level 7.4L, Phosphorus Level 3.5, Magnesium Level 2.1 Microbiology 11/23/16 Blood Culture - Final, Complete No growth 11/23/16 Gram Stain - Final, Complete 11/23/16 Body Fluid Culture - Final, Complete Escherichia Coli 11/23/16 Urine Culture - Final, Complete Klebsiella Pneumoniae Escherichia Coli Lactococcus Species Assessment/Plan Assessment/Plan Assess & Plan/Chief Complaint s/p laparoscopic right hemicolectomy. WBC increased from 16 to 20. 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 no abscess or obstruction. passing flatus. Will repeat CT abdomen/pelvis due to increasing WBC, chest X-ray from yesterday ok. will treat fistula now with low residue diet/TPN and abx. protect surrounding skin with ostomy applicance. Will DC cipro and flagyl. Will start zosyn and diflucan. Encourage ambulation. Continue with medical management. NUBIA AREVALO HAND SPRING REPAIRER HELPER Nov 29, 2016 9:58 am
[2016-11-29] MEDS ORDERED: FLUCONAZOLE 200 MG/100 ML 100 ML IV NR (10:15)
--- NOTE | 2016-11-29 10:35 | Progress Note-Hospitalist ---
Subjective HPI/CC On Admission Date Seen by Provider: Nov 29, 2016 Time Seen by Provider: 09:50 Subjective/Events-last exam reports feeling better today. had some emesis last night but has eaten ice cream and tolerated it so far. Feels breathing is better and has oxygen off. Denies flatus or BM Objective Exam Vital Signs Vital Sign - Last 12Hours 11/23/16 11/23/16 00:00 03:59 Temp 97.0 Pulse 74 Resp 10 B/P (MAP) 111/51 Pulse Ox 95 O2 Delivery Nasal Cannula O2 Flow Rate 1.00 Capillary Refill : General Appearance: No Apparent Distress, WD/WN Respiratory: Lungs Clear, Normal Breath Sounds, No Accessory Muscle Use Cardiovascular: No JVD, No Murmur, Irregularly Irregular Gastrointestinal: Soft, Abnormal Bowel Sounds (absent), No Guarding, Tenderness (approriately so) Extremity: Non Tender, No Calf Tenderness, Pedal Edema Neurologic/Psychiatric: Alert, Oriented x3, Normal Mood/Affect Skin: Normal Color, Warm/Dry Results/Procedures Lab Laboratory Tests 11/29/16 05:30 Assessment/Plan Assessment and Plan Assess & Plan/Chief Complaint 1. 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 Gaston 2. Paroxysmal a-fib- On metoprolol. Off anticoagulation since October due to her GI bleed. Cards consulted appreciate recs 3. Oliguria- Marginal, discussed again with nurse- will start maintenance fluids in conjunction with TPN 4. UTI, bacterial peritonitis- Leukocytosis up today, afebrile Currently on Cipro/Flagyl per senstivities of Klebsiella, E. Coli, and Citrobacter Will recheck urine, defer escalating antibiotics as she has no symptoms at this time and has been afebrile 5. Asthma- reports history of asthma,Continue albuterol 6. Normocytic anemia- remains stable around 8-9. has been as low as 6.1 1 month ago, trend 7. Electrolyte abnormalities- on K and Mag protocol, on TPN 8.FEN/GI/PPX- On Lovenox for dvt ppx, Protonix, CLD, continue TPN PONCHO CHRISTOPHER MD Nov 29, 2016 10:35
--- NOTE | 2016-11-29 11:09 | Diagnostic Imaging Report ---
PROCEDURE: CT abdomen and pelvis without contrast. TECHNIQUE: Multiple contiguous axial images were obtained through the abdomen and pelvis without the use of intravenous contrast. INDICATION: Vomiting. One week post colon surgery for tumor removal. CORRELATION STUDY: 11/26/2016 FINDINGS: Moderate bilateral pleural effusions again demonstrated, relatively stable on the right and slightly decreased on the left. There is hyperdense material again noted about the posterior right lung base, stable. There is consolidation with atelectasis of both lower lobes. There is slight heterogeneous attenuation of the liver parenchyma. The gallbladder is absent. Spleen, atrophic pancreas and adrenal glands are generally stable. There is diffuse thinning of the renal parenchyma. Nonobstructing stone inferior pole left kidney. No evidence for overt hydronephrosis. There is rather dense aortic iliac vascular calcification present. Peritoneal drainage catheter remains in place. There is generalized haziness and edema about the mesentery as well as subcutaneous tissues. The amount of pelvic fluid as well as pericolic and perihepatic fluid generally stable. Surgical changes with anastomotic suture line at the ileocolic region is present. There is a fluid collection just posterior to the anastomotic suture line that measures 4.7 x 2.7 cm. A few small gas bubbles in this region. Skin jasbir have been removed in the right lower quadrant. Deep to this area is more focal area of heterogeneity as well as a few gas collections. No definitive drainable abscess in the subcutaneous tissues. Stomach distended with fluid and gas. There is also prominent distention of the colon, particularly the transverse and descending colon which is distended with fluid and gas. Distal colonic diverticuli are present. Urinary bladder decompressed around a Nelson catheter. Uterus absent. IMPRESSION: 1. Postop change of the abdomen. Diffuse distention of the gastrointestinal tract favoring probable postoperative ileus. There is more focal fluid collection just adjacent to the anastomotic suture line with a few small bubbles of gas in and around this area. This may be owing to postoperative changes of a seroma, possibility of abscess would be considered less likely but not excluded. 2. There does appear to be new gas collection subcutaneous tissues likely owing to prior port site of the right lower quadrant. Definitive abscess does not appear to be present in this area. If this is the case, drainage to the anastomotic suture line could be reflective of underlying fistula with anastomotic leak. Clinical correlation is recommended. 3. Generalized anasarca. Dictated by: Dictated on workstation # [id number]
[2016-11-29] MEDS ORDERED: PIPERACILLIN SODIUM/TAZOBACTAM 4.5 GM in NS (IVPB) 100 ML IV SCH ×2 (11:30→18:00)
[2016-11-29 11:43] LABS: BILIRUBIN,URINE NEGATIVE (NEGATIVE); KETONES,URINE NEGATIVE (NEGATIVE); LEUKOCYTE ESTERASE ,URINE 1+ (NEGATIVE); NITRITE,URINE NEGATIVE (NEGATIVE); PH,URINE 6 (5-9); PROTEIN,URINE 2+ (NEGATIVE); UROBILINOGEN,URINE NORMAL (NORMAL)
[2016-11-29 11:58] LABS: GRANULAR CASTS,URINE 0-2 /LPF; SQUAMOUS EPITHELIAL CELL,UR RARE /HPF; YEAST,URINE FEW /HPF
--- NOTE | 2016-11-29 12:07 | Diagnostic Imaging Report ---
PROCEDURE: CT chest without contrast. TECHNIQUE: Multiple contiguous axial images were obtained through the chest without the use of intravenous contrast. INDICATION: Difficulty breathing. Vomiting yesterday. One week post colon removal. FINDINGS: Evaluation of the mediastinal structures is limited given lack of contrast. There is also motion artifact. Heart size is enlarged with coronary artery calcification. A left-sided subclavian central line is present tip within the SVC superiorly. There is low density nodularity about the left lobe of the thyroid gland. No definitive pathologically enlarged mediastinal lymph nodes. There is presence of moderate bilateral pleural effusions right slightly greater than left. Fluid is layering predominantly dependently. High density is noted within the right costophrenic angle likely within the lung parenchyma could be reflective of perhaps ingested contents. There is some compressive atelectasis and/or perhaps pneumonia about the lung bases right greater than left likely largely attributed to the effusion. The remaining lung plasencia otherwise relatively clear. Visualized portions of the upper abdomen. Generalized haziness about the mesentery and anasarca. Probable old right medial clavicular head fracture. Compressed thoracic vertebral bodies appearing to be likely nonacute. IMPRESSION: 1. Moderate bilateral pleural effusions right slightly greater than left with associated compressive atelectasis and/or infiltrate. 2. High density contents in the right costophrenic angle. Nonspecific but could be reflective of perhaps ingested contents. Calcification from perhaps prior infection or inflammatory process could also give this appearance. Dictated by: Dictated on workstation # [id number]
[2016-11-29 12:30] VITALS: BP 119/56
[2016-11-29] MEDS: CEFEPIME INJECTION 2,000 MG in NS (IVPB) 50 ML IV SCH ×2 (13:08→20:41)
[2016-11-29] MEDS: NS IV 1000 ML 1,000 ML IV SCH (13:08)
[2016-11-29 15:35] VITALS: BP 119/59
[2016-11-29] MEDS ORDERED: SODIUM CHLORIDE IV SCH ×9 (17:00)
[2016-11-29] MEDS ORDERED: POTASSIUM CHLORIDE IV SCH ×9 (17:00)
[2016-11-29] MEDS ORDERED: [UNRECOGNIZED DRUG - OTHER] IV SCH ×9 (17:00)
[2016-11-29 19:15] VITALS: BP 130/63
[2016-11-29] MEDS: MONTELUKAST 10 MG (SINGULAIR) TAB PO SCH (20:40)
[2016-11-30] VITALS: BP 123/60
[2016-11-30] MEDS: METOCLOPRAMIDE INJ 10 MG/2 ML (REGLAN) IVP SCH ×4 (00:34→17:01)
[2016-11-30 04:00] VITALS: BP 129/61
[2016-11-30 05:19] LABS: BASOPHILS % (AUTO) 0 % (0-10); EOSINOPHILS # (AUTO) 0.4 10^3/uL (0.0-0.3); EOSINOPHILS % (AUTO) 2 % (0-10); LYMPHOCYTES % (AUTO) 5 % (12-44); MEAN CORPUSCULAR HEMOGLOBIN 27 PG (25-34); MEAN CORPUSCULAR HGB CONC 31 G/DL (32-36); MEAN CORPUSCULAR VOLUME 88 FL (80-99); MEAN PLATELET VOLUME 10.6 FL (7.4-10.4); MONOCYTES # (AUTO) 2.1 X 10^3 (0.0-1.0); MONOCYTES % (AUTO) 11 % (0-12); NEUTROPHILS # (AUTO) 16.3 X 10^3 (1.8-7.8); NEUTROPHILS % (AUTO) 82 % (42-75); PLATELET COUNT 285 10^3/uL (130-400); RED BLOOD COUNT 2.85 10^6/uL (4.35-5.85); RED CELL DISTRIBUTION WIDTH 19.5 % (10.0-14.5); WHITE BLOOD COUNT 19.8 10^3/uL (4.3-11.0)
[2016-11-30 05:35] LABS: ANION GAP 6 MMOL/L (5-14); BLOOD UREA NITROGEN 37 MG/DL (7-18); BUN/CREATININE RATIO 51; CALCIUM 7.4 MG/DL (8.5-10.1); CARBON DIOXIDE 27 MMOL/L (21-32); CHLORIDE 103 MMOL/L (98-107); CREATININE SERUM 0.72 MG/DL (0.60-1.30); GFR ESTIMATED > 60; GLUCOSE 103 MG/DL (70-105); MAGNESIUM 2.2 MG/DL (1.8-2.4); PHOSPHORUS 3.9 MG/DL (2.3-4.7); POTASSIUM 4.8 MMOL/L (3.6-5.0); SODIUM 136 MMOL/L (135-145)
[2016-11-30] MEDS: RT-ALBUTEROL SULF 2.5 MG/3 ML PRE-MIX VIAL IH SCH ×4 (06:19→19:01)
[2016-11-30] MEDS: NS IV 1000 ML 1,000 ML IV SCH ×2 (06:35→11:19)
--- NOTE | 2016-11-30 07:25 | Pulmonary Progress Note ---
Subjective Time Seen by Provider: 07:22 Subjective/Events-last exam PT is doing better. Denies SOB. Exam Exam Vital Signs Date Time Temp Pulse Resp B/P (MAP) Pulse Ox O2 Delivery O2 Flow Rate FiO2 11/30/16 06:19 93 Nasal Cannula 3.00 11/30/16 04:00 97.7 78 18 129/61 95 Nasal Cannula 3.00 11/30/16 01:00 76 11/30/16 00:00 97.8 73 16 123/60 91 Nasal Cannula 3.00 11/29/16 20:00 96 Nasal Cannula 4.00 11/29/16 19:42 96 Nasal Cannula 3.00 11/29/16 19:15 99.1 81 20 130/63 97 Nasal Cannula 3.00 11/29/16 19:00 79 11/29/16 15:35 99.1 85 18 119/59 94 Nasal Cannula 3.00 11/29/16 15:01 93 Nasal Cannula 3.00 11/29/16 13:00 77 11/29/16 12:30 96.9 75 20 119/56 95 Nasal Cannula 3.00 11/29/16 11:15 95 Nasal Cannula 3.00 11/29/16 08:26 97.1 88 16 125/69 92 Nasal Cannula 3.00 11/29/16 08:00 95 Room Air 11/29/16 07:25 92 Nasal Cannula 3.00 General Appearance: No Apparent Distress, WD/WN HEENT: PERRL/EOMI, TMs Normal, Normal ENT Inspection, Pharynx Normal Neck: Full Range of Motion, Normal Inspection, Non Tender, Supple Respiratory: Lungs Clear, Normal Breath Sounds, No Accessory Muscle Use Cardiovascular: No JVD, No Murmur, Irregularly Irregular Gastrointestinal: soft, tenderness, other (Right wound/fistula with liquid brown/green drainage with gas production noted in collection appliance.) Extremity: Non Tender, No Calf Tenderness, Pedal Edema Neurologic/Psychiatric: Alert, Oriented x3, Normal Mood/Affect Skin: Normal Color, Warm/Dry Lymphatic: No Adenopathy Results Lab Laboratory Tests 11/29/16 05:30 11/30/16 05:09 Assessment/Plan Assessment/Plan s/p right hemicolectomy -pain control ileocolonic anastomotic fistula with abd wall. no abscess or obstruction Surgery is following Adenocarcinoma of right colon Persistent leukocytosis -Check KUB -Culture ROSA drain output -mims culture -Cefepime Hypoxia secondary to atelectasis and pulmonary edema -Monitor and check BNP Ileus post op -Surgery following Malnutrition with hypoalbuminemia and third spacing - TPN started 11/24/16 Paroxysmal Afib per RN - cardiology consulted Atelectasis r/o PNA - Doubt pneumonia -IS -SVNs-- change to easy PAP -increase activity -PT/OT GI/DVT ppx -lovenox, SCDs, protonix 232 MONE GRIFFIN DO Nov 30, 2016 07:25
[2016-11-30 07:32] VITALS: BP 118/56
[2016-11-30] MEDS: meTOprolol SUCCINATE 100 MG (TOPROL XL) TAB PO SCH ×2 (08:39→20:28)
[2016-11-30] MEDS: amLODIPine 5 MG (NORVASC) TAB PO SCH (08:39)
[2016-11-30] MEDS: SENNA W/DOCUSATE (SENOKOT S) TABLET PO SCH (08:40)
[2016-11-30] MEDS: ENOXAPARIN 30 MG/0.3 ML (LOVENOX) SYR SC SCH ×2 (08:40→20:28)
[2016-11-30] MEDS: PANTOPRAZOLE 40 MG/10 ML (PROTONIX) VIAL IV SCH (08:40)
[2016-11-30] MEDS: CEFEPIME INJECTION 2,000 MG in NS (IVPB) 50 ML IV SCH (08:40)
--- NOTE | 2016-11-30 08:40 | Progress Note-Cardiology ---
Cardiology SOAP Progress Note Objective: I&O/Vital Signs Vital Sign - Last 12Hours 11/30/16 11/30/16 11/30/16 11/30/16 01:00 04:00 06:19 07:00 Temp 97.7 Pulse 76 78 83 Resp 18 B/P (MAP) 129/61 Pulse Ox 95 93 O2 Delivery Nasal Cannula Nasal Cannula O2 Flow Rate 3.00 3.00 11/30/16 11/30/16 11/30/16 07:32 08:41 10:04 Temp 98.8 Pulse 82 Resp 20 B/P (MAP) 118/56 Pulse Ox 94 93 O2 Delivery Nasal Cannula Nasal Cannula Nasal Cannula O2 Flow Rate 3.00 3.00 3.00 Weight (Pounds): 234 Weight (Ounces): 7.0 Weight (Calculated Kilograms): 106.711357 Constitutional: No appears stated age, No AAO x 3, No apparent distress, No PERRL, No well-developed, No well-nourished, No other Respiratory: No accessory muscle use, No respiratory distress, No chest tender , No chest expansion is symmetric, No chest is bilaterally symmetric, No lungs clear to percussion, No lungs clear to auscultation, No crackles, No rhonchi, No rales, No stridor, No wheezing, No pleural rub, No other Cardiovascular: irregularly irregular Gastrointestional: tenderness Extremities: No normal range of motion, No non-tender, No normal inspection, No pedal edema, No calf tenderness, No normal capillary refill, No pelvis stable , No calf tenderness, No inflammation, No pedal edema, No slow capillary refill , No swelling, No other, No abrasion, No clubbing, No cyanosis, No ecchymosis, No laceration, No no lower extremity edema bilateral, No significant edema, No tenderness, No wound Neurologic/Psychiatric: No retail support associate II-XII nml as tested, No no motor/sensory deficits, No alert, No normal mood/affect, No oriented x 3, No abnormal cerebellar tests, No abnormal retail support associate II-XII, No abnormal gait, No aphasia, No EOM palsy, No facial droop, No motor weakness, No sensory deficit, No depressed affect, No disoriented x 3, No other, No grossly intact, No power is 5/5 both on sides Skin: No normal color, No warm/dry, No cyanosis, No cool, No diaphoresis, No damp, No ecchymosis, No jaundice, No mottled, No pallor, No rash, No tattoos/ piercings, No ulcerations, No rash on exposed areas, No ulcerations on exposed areas, No other Results/Procedures: Labs Laboratory Tests 11/30/16 05:09: White Blood Count 19.8H, Red Blood Count 2.85L, Hemoglobin 7.8L, Hematocrit 25L , Mean Corpuscular Volume 88, Mean Corpuscular Hemoglobin 27, Mean Corpuscular Hemoglobin Concent 31L, Red Cell Distribution Width 19.5H, Platelet Count 285, Mean Platelet Volume 10.6H, Neutrophils (%) (Auto) 82H, Lymphocytes (%) (Auto) 5L, Monocytes (%) (Auto) 11, Eosinophils (%) (Auto) 2, Basophils (%) (Auto) 0, Neutrophils # (Auto) 16.3H, Lymphocytes # (Auto) 1.0, Monocytes # (Auto) 2.1H, Eosinophils # (Auto) 0.4H, Basophils # (Auto) 0.0, Sodium Level 136, Potassium Level 4.8, Chloride Level 103, Carbon Dioxide Level 27, Anion Gap 6, Blood Urea Nitrogen 37H, Creatinine 0.72, Estimat Glomerular Filtration Rate > 60, BUN/ Creatinine Ratio 51, Glucose Level 103, Calcium Level 7.4L, Phosphorus Level 3.9 , Magnesium Level 2.2, B-Type Natriuretic Peptide 1031.5H Microbiology 11/23/16 Blood Culture - Final, Complete No growth 11/23/16 Gram Stain - Final, Complete 11/23/16 Body Fluid Culture - Final, Complete Escherichia Coli 11/29/16 Urine Culture - Preliminary, Resulted Yeast Species Procedures NAME: SRUTHI SYKES [facility] REC#: [id number] PT STATUS: ADM IN : 1935 PHYSICIAN: STEPHANY ALY MD ADMIT DATE: 11/19/16 Signed Date of Exam: 11/29/16 CT CHEST WO PROCEDURE: CT chest without contrast. TECHNIQUE: Multiple contiguous axial images were obtained through the chest without the use of intravenous contrast. INDICATION: Difficulty breathing. Vomiting yesterday. One week post colon removal. FINDINGS: Evaluation of the mediastinal structures is limited given lack of contrast. There is also motion artifact. Heart size is enlarged with coronary artery calcification. A left-sided subclavian central line is present tip within the SVC superiorly. There is low density nodularity about the left lobe of the thyroid gland. No definitive pathologically enlarged mediastinal lymph nodes. There is presence of moderate bilateral pleural effusions right slightly greater than left. Fluid is layering predominantly dependently. High density is noted within the right costophrenic angle likely within the lung parenchyma could be reflective of perhaps ingested contents. There is some compressive atelectasis and/or perhaps pneumonia about the lung bases right greater than left likely largely attributed to the effusion. The remaining lung plasencia otherwise relatively clear. Visualized portions of the upper abdomen. Generalized haziness about the mesentery and anasarca. Probable old right medial clavicular head fracture. Compressed thoracic vertebral bodies appearing to be likely nonacute. IMPRESSION: 1. Moderate bilateral pleural effusions right slightly greater than left with associated compressive atelectasis and/or infiltrate. 2. High density contents in the right costophrenic angle. Nonspecific but could be reflective of perhaps ingested contents. Calcification from perhaps prior infection or inflammatory process could also give this appearance. Dictated by: Dictated on workstation # [id number] Dict: 11/29/16 1110 Trans: 11/29/16 1546 Interpreted by: ANIBAL ONEILL DO Electronically signed by: ANIBAL ONEILL DO 11/29/16 1546 A/P: Assessment: Anemia - management per medical services Post right hemicolectomy for adenocarcinoma of the colon per Dr. Marilin WEIR documented during hosp of early Dec 2014. Previously was on Eliquis for stroke prevention - which was discontinued due to profound anemia Elevated BMI of approx 32 No evidence of ischemia or infarction on MPI of 12/11/14; LVEF was 74% Echo of 12/07/14 showed LVEF 55%, mod LAE, mild TR, PASP 35 mmHg H/o hypertension: Continue antihypertensives. Plan: Complex management issue Continue with rate controlling agents OAC currently on hold d/t anemia and post luli-colectomy - resume for stroke prophylaxis when H/H stable and OK from surgical stand point Monitor lab Anemia - management per medical/surgical services ARIS TRINIDAD Nov 30, 2016 08:40
--- NOTE | 2016-11-30 09:07 | Progress Note-Cardiology ---
Cardiology SOAP Progress Note Objective: I&O/Vital Signs Vital Sign - Last 12Hours 11/30/16 11/30/16 11/30/16 11/30/16 00:00 01:00 04:00 06:19 Temp 97.8 97.7 Pulse 73 76 78 Resp 16 18 B/P (MAP) 123/60 129/61 Pulse Ox 91 95 93 O2 Delivery Nasal Cannula Nasal Cannula Nasal Cannula O2 Flow Rate 3.00 3.00 3.00 11/30/16 07:32 Temp 98.8 Pulse 82 Resp 20 B/P (MAP) 118/56 Pulse Ox 94 O2 Delivery Nasal Cannula O2 Flow Rate 3.00 Weight (Pounds): 234 Weight (Ounces): 7.0 Weight (Calculated Kilograms): 106.841871 Constitutional: AAO x 3, well-developed, well-nourished Respiratory: No accessory muscle use, other (Fair air entry, but diminished at both bases) Cardiovascular: regular rate-rhythm, S1 and S2 Gastrointestional: other (s/p abd surgery, audible bs) Extremities: No clubbing, No cyanosis, significant edema (marked bilateral upper and lower ext edema) Neurologic/Psychiatric: oriented x 3, grossly intact, power is 5/5 both on sides Skin: No rash on exposed areas, No ulcerations on exposed areas Results/Procedures: Labs Laboratory Tests 11/29/16 11:20: Urine Color YELLOW, Urine Clarity CLEAR, Urine pH 6, Urine Specific [place] 1.020, Urine Protein 2+H, Urine Glucose (UA) NEGATIVE, Urine Ketones NEGATIVE, Urine Nitrite NEGATIVE, Urine Bilirubin NEGATIVE, Urine Urobilinogen NORMAL, Urine Leukocyte Esterase 1+H, Urine RBC (Auto) 2+H, Urine RBC RARE, Urine WBC 5- 10H, Urine Squamous Epithelial Cells RARE, Urine Crystals NONE, Urine Bacteria MODERATEH, Urine Casts PRESENT, Urine Granular Casts 0-2H, Urine Mucus NEGATIVE , Urine Yeast FEWH, Urine Culture Indicated YES 11/30/16 05:09: White Blood Count 19.8H, Red Blood Count 2.85L, Hemoglobin 7.8L, Hematocrit 25L , Mean Corpuscular Volume 88, Mean Corpuscular Hemoglobin 27, Mean Corpuscular Hemoglobin Concent 31L, Red Cell Distribution Width 19.5H, Platelet Count 285, Mean Platelet Volume 10.6H, Neutrophils (%) (Auto) 82H, Lymphocytes (%) (Auto) 5L, Monocytes (%) (Auto) 11, Eosinophils (%) (Auto) 2, Basophils (%) (Auto) 0, Neutrophils # (Auto) 16.3H, Lymphocytes # (Auto) 1.0, Monocytes # (Auto) 2.1H, Eosinophils # (Auto) 0.4H, Basophils # (Auto) 0.0, Sodium Level 136, Potassium Level 4.8, Chloride Level 103, Carbon Dioxide Level 27, Anion Gap 6, Blood Urea Nitrogen 37H, Creatinine 0.72, Estimat Glomerular Filtration Rate > 60, BUN/ Creatinine Ratio 51, Glucose Level 103, Calcium Level 7.4L, Phosphorus Level 3.9 , Magnesium Level 2.2, B-Type Natriuretic Peptide 1031.5H Microbiology 11/23/16 Blood Culture - Final, Complete No growth 11/23/16 Gram Stain - Final, Complete 11/23/16 Body Fluid Culture - Final, Complete Escherichia Coli 11/23/16 Urine Culture - Final, Complete Klebsiella Pneumoniae Escherichia Coli Lactococcus Species Laboratory Tests 11/29/16 05:30 11/30/16 05:09 A/P: Assessment: Gen anasarca; probably related to hypoproteinemia, but diastolic CHF is also a consideration. Amlodipine probably contributing to edema Post right hemicolectomy for adenocarcinoma of the colon per Dr. Gaston PAF documented during hosp of early Dec 2014. Currently maintaining sinus rhythm Previously was on Eliquis for stroke prevention - does not appear ready for resumption due to markedly low and slowly declining Hgb Elevated BMI of approx 43 No evidence of ischemia or infarction on MPI of 12/11/14; LVEF was 74% Echo of 12/07/14 showed LVEF 55%, mod LAE, mild TR, PASP 35 mmHg H/o hypertension Plan: Complex management due to multiple comorbidities Furosemide to reduce fluid overload and gen edema Echo to reeval LVEF and valve function Not ready for Eliquis (see above) D/c amlodipine because pt is normotensive and amlodipine is likely contributing to edema Continue to monitor rhythm (seems to be maintaining NSR, fortunately) Monitor labs closely I had a discussion with her regarding her CV issues and our treatment plan EMILY HILTON MD FACP FAC CCDS Nov 30, 2016 09:07
[2016-11-30] MEDS ORDERED: FUROSEMIDE 40 MG/4 ML INJ (LASIX) IVP NR (09:13)
[2016-11-30] MEDS: FLUCONAZOLE 100 MG/50 ML 50 ML IV SCH (09:34)
--- NOTE | 2016-11-30 10:38 | Occupational Ther Daily Note ---
OT Current Status-Daily Note Subjective Pt alert, lying in bed. Nrsg present in room when HERNANDEZ came in. Pt agreed to some therapy stating that she just needs a little bit of time to rest after breakfast. No c/o pain only fatigue. Mental Status/Objective Patient Orientation: Person, Place, Time, Situation Functional [place] Measure 0=Not Assessed/NA 4=Minimal Assistance 1=Total Assistance 5=Supervision or Setup 2=Maximal Assistance 6=Modified [place] 3=Moderate Assistance 7=Complete [place] Attachments: IV, PEG Tube ADL-Treatment Pt agreed to complete oral care and UE exercises. Pt declined sitting up stating she needed to rest after breakfast and that she would wait awhile before taking a bath. HERNANDEZ gathered supplies for pt's oral care. Pt was able to open toothpaste then completed all steps of brushing teeth by self. Pt then completed 2 shldr exercises 10 reps, fatigued quickly, to increase strength and activity tolerance for transfers and ADLs. Needed recovery breaks between exercises and during exercises unable to have consistent AROM of UE's. After therapy, pt lying in bed with call light/phone in reach. All needs met in room. OT Short Term Goals Short Term Goals 1=Demonstrate adherence to instructed precautions during ADL tasks. 2=Patient will verbalize/demonstrate understanding of assistive devices/ modifications for ADL. 3=Patient will improve strength/tolerance for activity to enable patient to perform ADL's. OT Director Construction Services Goals Director Construction Services Goals Time Frame: Dec 11, 2016 Eating (FIM): 6 Grooming(FIM): 6 Bathing(FIM): 5 Upper Body Dressing(FIM): 5 Lower Body Dressing(FIM): 5 Toileting(FIM): 6 Toilet/Commode Transfer(FIM): 6 Shower Transfer(FIM): 5 Additional Goals: 2-Verbalize Understanding, 3-ImproveStrength/Shari 1=Demonstrate adherence to instructed precautions during ADL tasks. 2=Patient will verbalize/demonstrate understanding of assistive devices/ modifications for ADL. 3=Patient will improve strength/tolerance for activity to enable patient to perform ADL's. OT Education/Plan Problem List/Assessment Pt would benefit from skilled OT to increase her independence in basic self care to allow her to safely return to her home and to decrease caregiver burden Discharge Recommendations Plan/Recommendations: Continue POC Treatment Plan/Plan of Care Patient would benefit from OT for education, treatment and training to promote independence in ADL's, mobility, safety and/or upper extremity function for ADL' s. Plan of Care: ADL Retraining, Functional Mobility, UE Funct Exercise/Act, UE Neuromus Re-Ed/Coord Treatment Duration: Dec 11, 2016 Frequency: 5 times per week Estimated Hrs Per Day: .25 hour per day Agreement: Yes Rehab Potential: Good Time/GCodes Start Time: 09:34 Stop Time: 09:54 Total Time Billed (hr/min): 20 Billed Treatment Time 1 visit-FA 1 (20 min) RL CHARLES Nov 30, 2016 10:38
--- NOTE | 2016-11-30 11:24 | Physical Therapy Daily Note ---
PT Daily Note-Current Subjective Patient agrees to PT. Pain Numeric Pain Scale: 5-Moderate Pain Location: Right, Left Location Body Site: Thigh Pain Description: Pressure Appearance 3+ pitting edema total body Mental Status Patient Orientation: Normal For Age Attachments: Oxygen, Drains, Nelson Catheter, IV Transfers Functional [place] Measure 0=Not Assessed/NA 4=Minimal Assistance 1=Total Assistance 5=Supervision or Setup 2=Maximal Assistance 6=Modified [place] 3=Moderate Assistance 7=Complete IndependenceIRFPAI Quality Coding Scale 6 Independent with activity with or without an assistive device 5 Patient requires set up or clean up by helper. Patient completes activity by themselves 4 Supervision or touching assist (CGA). [place] provide cues , steadying assist 3 The helper provides less than half the effort to complete the activity 2 The helper provides more than half the effort to complete the activity 1 Dependent. The helper does all the effort to complete an activity 7 Patient refused to complete or attempt activity 9 The patient did not perform the activity before the current illness or injury 88 Not attempted due to Medical conditions or safety concerns Transfers (B, C, W/C) (FIM): 2 Scootin Rollin Supine to/from Sit: 2 Sit to/from Stand: 4 Bed to/from Chair: 4 Gait Training Gait (FIM): 1 Distance (FIM): 1=up to 49 ft Distance: 10' Gait Level of Assist: 4 Gait Persons Needed: 1 Gait Assistive Device: FWW slow, shuffle gait sequence Exercises Supine Ex: Ankle pumps, Quad Set, Heel Slides Supine Reps: 10 Seated Therapy Exercises: Ankle pumps, Long arc quads Seated Reps: 10 Assessment Patient requires recovery periods due to diminished, deconditioned state. Patient tolerates minimal activity at this time. PT Nursing Home Goals Sport Shoe Spike Assembler Goals PT Nursing Home Goals Time Frame: Dec 11, 2016 Transfers (B,C,W/C) (FIM): 6 Gait (FIM): 6 Gait distance (FIM): 3=150 ft Gait Level of Assist: 6 Gait Assistive Device: FWW PT Plan Problem List Problem List: Activity Tolerance, Functional Strength Treatment/Plan Treatment Plan: Continue Plan of Care Treatment Plan: Bed Mobility, Education, Functional Activity Shari, Functional Strength, Gait, Safety, Therapeutic Exercise, Transfers Treatment Duration: Dec 11, 2016 Frequency: 6 times per week Estimated Hrs Per Day: .5 hour per day Patient and/or Family Agrees t: Yes Discharge Recommendations Therapy D/C Recommendations: Retirement (TCU/NH) Time/GCodes Time In: 1105 Time Out: 1120 Total Billed Treatment Time: 15 Total Billed Treatment 1 visit FA 15 min MICHELLE ROLLINS PT Nov 30, 2016 11:24
[2016-11-30 12:00] VITALS: BP 133/61
--- NOTE | 2016-11-30 14:45 | Progress Note-Hospitalist ---
Standard Progress Note Progress Notes/Assess & Plan Date Seen 11/30/16 Time Seen by Provider: 14:40 Diagnosis Assessment: Status post right colectomy due to cancer Postop ileus on NG tube History of hypertension Assess & Plan/Chief Complaint The patient is an 81-year-old white female who underwent a right hemicolectomy on 11/19 for adenocarcinoma. She has had an ileus and developed a entero- cutaneous fistula. She reports she is able to walk a few steps at this time. She tires very quickly. There is stool material draining from the fistula. She is eating a bit although she has very little appetite. She has no specific complaints today. Laboratory and x-ray studies suggested rather widespread fluid retention with at least part of this being on the basis of hypoalbuminemia. Physical exam: The patient is sitting at the bedside. She is pleasant and in no distress. Lungs are clear to auscultation. CV is regular without murmur. There is a rather doughy edema of the ankles and pretibial area. Impression: Day 11 postop right hemicolectomy for adeno CA. 2. Enterocutaneous fistula. 3.hypoalbuminemia. Plan: Repeat laboratory. Consider nutritional support for protein. Labs Laboratory Tests 11/29/16 05:30 11/30/16 05:09 JANICE MANCILLA MD Nov 30, 2016 14:45
[2016-11-30 15:33] VITALS: BP 132/63
--- NOTE | 2016-11-30 16:35 | Progress Note (SOAP) ---
Subjective Date Seen by Provider: Nov 30, 2016 Time Seen by Provider: 16:30 Subjective/Events-last exam doing better. tolerating diet. pain controlled. no fever/chills. Objective Exam Vital Signs Date Time Temp Pulse Resp B/P (MAP) Pulse Ox O2 Delivery O2 Flow Rate FiO2 11/30/16 15:33 98.4 89 20 132/63 96 Nasal Cannula 3.00 11/30/16 14:50 98 Nasal Cannula 2.00 11/30/16 13:00 85 11/30/16 12:00 100.1 88 20 133/61 96 Nasal Cannula 3.00 11/30/16 10:04 93 Nasal Cannula 3.00 11/30/16 08:41 Nasal Cannula 3.00 11/30/16 07:32 98.8 82 20 118/56 94 Nasal Cannula 3.00 11/30/16 07:00 83 11/30/16 06:19 93 Nasal Cannula 3.00 11/30/16 04:00 97.7 78 18 129/61 95 Nasal Cannula 3.00 11/30/16 01:00 76 11/30/16 00:00 97.8 73 16 123/60 91 Nasal Cannula 3.00 11/29/16 20:00 96 Nasal Cannula 4.00 11/29/16 19:42 96 Nasal Cannula 3.00 11/29/16 19:15 99.1 81 20 130/63 97 Nasal Cannula 3.00 11/29/16 19:00 79 I & O 12/01/16 07:00 Intake Total 1930 ml Output Total 2425 ml Balance -495 ml Capillary Refill : General Appearance: No Apparent Distress HEENT: PERRL/EOMI Neck: Full Range of Motion Respiratory: Rhonci, Wheezing Cardiovascular: Regular Rate, Rhythm Gastrointestinal: normal bowel sounds, non tender, soft Extremity: Normal Capillary Refill Neurologic/Psychiatric: Alert, Oriented x3 Skin: Normal Color Lymphatic: No Adenopathy Results Lab Laboratory Tests 11/30/16 05:09: White Blood Count 19.8H, Red Blood Count 2.85L, Hemoglobin 7.8L, Hematocrit 25L , Mean Corpuscular Volume 88, Mean Corpuscular Hemoglobin 27, Mean Corpuscular Hemoglobin Concent 31L, Red Cell Distribution Width 19.5H, Platelet Count 285, Mean Platelet Volume 10.6H, Neutrophils (%) (Auto) 82H, Lymphocytes (%) (Auto) 5L, Monocytes (%) (Auto) 11, Eosinophils (%) (Auto) 2, Basophils (%) (Auto) 0, Neutrophils # (Auto) 16.3H, Lymphocytes # (Auto) 1.0, Monocytes # (Auto) 2.1H, Eosinophils # (Auto) 0.4H, Basophils # (Auto) 0.0, Sodium Level 136, Potassium Level 4.8, Chloride Level 103, Carbon Dioxide Level 27, Anion Gap 6, Blood Urea Nitrogen 37H, Creatinine 0.72, Estimat Glomerular Filtration Rate > 60, BUN/ Creatinine Ratio 51, Glucose Level 103, Calcium Level 7.4L, Phosphorus Level 3.9 , Magnesium Level 2.2, B-Type Natriuretic Peptide 1031.5H Microbiology 11/23/16 Blood Culture - Final, Complete No growth 11/23/16 Gram Stain - Final, Complete 11/23/16 Body Fluid Culture - Final, Complete Escherichia Coli 11/29/16 Urine Culture - Preliminary, Resulted Presumptive Anjali Albicans Assessment/Plan Assessment/Plan Assess & Plan/Chief Complaint s/p laparoscopic right hemicolectomy. 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 no abscess or obstruction. passing flatus. no fevers. CT abdomen showed normal post surgical change. no abscess. will treat fistula now with low residue diet/TPN and abx. protect surrounding skin with ostomy applicance. pain controlled and VSS. will transfer to floor and involve hospitalist and SS for SWB vs. rehab STEPHANY ALY MD Nov 30, 2016 4:35 pm
[2016-11-30] MEDS ORDERED: POTASSIUM CHLORIDE IV SCH ×10 (17:00)
[2016-11-30] MEDS ORDERED: SODIUM CHLORIDE IV SCH ×10 (17:00)
[2016-11-30] MEDS ORDERED: [UNRECOGNIZED DRUG - OTHER] IV SCH ×10 (17:00)
[2016-11-30 20:24] VITALS: BP 136/65
[2016-11-30] MEDS: MONTELUKAST 10 MG (SINGULAIR) TAB PO SCH (20:28)
[2016-11-30] MEDS: ACETAMINOPHEN 500 MG TAB (TYLENOL) PO PRN (20:32)
[2016-12-01] VITALS: BP 139/64
[2016-12-01] MEDS: METOCLOPRAMIDE INJ 10 MG/2 ML (REGLAN) IVP SCH ×2 (00:23→05:36)
[2016-12-01 04:10] VITALS: BP 129/57
[2016-12-01 06:01] LABS: BASOPHILS % (AUTO) 0 % (0-10); EOSINOPHILS # (AUTO) 0.3 10^3/uL (0.0-0.3); EOSINOPHILS % (AUTO) 2 % (0-10); LYMPHOCYTES # (AUTO) 1.2 X 10^3 (1.0-4.0); LYMPHOCYTES % (AUTO) 7 % (12-44); MEAN CORPUSCULAR HEMOGLOBIN 27 PG (25-34); MEAN CORPUSCULAR HGB CONC 32 G/DL (32-36); MEAN CORPUSCULAR VOLUME 86 FL (80-99); MEAN PLATELET VOLUME 10.3 FL (7.4-10.4); MONOCYTES # (AUTO) 2.1 X 10^3 (0.0-1.0); MONOCYTES % (AUTO) 13 % (0-12); NEUTROPHILS % (AUTO) 78 % (42-75); PLATELET COUNT 308 10^3/uL (130-400); RED BLOOD COUNT 2.76 10^6/uL (4.35-5.85); RED CELL DISTRIBUTION WIDTH 19.2 % (10.0-14.5); WHITE BLOOD COUNT 16.6 10^3/uL (4.3-11.0)
[2016-12-01 06:13] LABS: ANION GAP 9 MMOL/L (5-14); BLOOD UREA NITROGEN 37 MG/DL (7-18); BUN/CREATININE RATIO 51; CALCIUM 7.5 MG/DL (8.5-10.1); CARBON DIOXIDE 25 MMOL/L (21-32); CHLORIDE 103 MMOL/L (98-107); CREATININE SERUM 0.72 MG/DL (0.60-1.30); GFR ESTIMATED > 60; GLUCOSE 108 MG/DL (70-105); MAGNESIUM 2.1 MG/DL (1.8-2.4); PHOSPHORUS 3.8 MG/DL (2.3-4.7); POTASSIUM 4.4 MMOL/L (3.6-5.0); SODIUM 137 MMOL/L (135-145)
[2016-12-01] MEDS ORDERED: FUROSEMIDE 40 MG/4 ML INJ (LASIX) IVP ONE (06:15)
[2016-12-01] MEDS: RT-ALBUTEROL SULF 2.5 MG/3 ML PRE-MIX VIAL IH SCH ×2 (06:41→10:28)
--- NOTE | 2016-12-01 07:02 | Pulmonary Progress Note ---
Subjective Time Seen by Provider: 07:02 Subjective/Events-last exam Pt has no complaints. Exam Exam Vital Signs Date Time Temp Pulse Resp B/P (MAP) Pulse Ox O2 Delivery O2 Flow Rate FiO2 12/01/16 06:41 91 Nasal Cannula 3.00 12/01/16 04:10 99.2 76 18 129/57 95 Nasal Cannula 3.00 12/01/16 00:54 76 12/01/16 00:00 98.9 92 18 139/64 97 Nasal Cannula 3.00 11/30/16 21:10 98.8 11/30/16 20:30 Nasal Cannula 3.00 11/30/16 20:24 100.0 86 20 136/65 95 Nasal Cannula 3.00 11/30/16 19:06 82 11/30/16 19:01 94 Nasal Cannula 3.00 11/30/16 15:33 98.4 89 20 132/63 96 Nasal Cannula 3.00 11/30/16 14:50 98 Nasal Cannula 2.00 11/30/16 13:00 85 11/30/16 12:00 100.1 88 20 133/61 96 Nasal Cannula 3.00 11/30/16 10:04 93 Nasal Cannula 3.00 11/30/16 08:41 Nasal Cannula 3.00 11/30/16 07:32 98.8 82 20 118/56 94 Nasal Cannula 3.00 11/30/16 07:00 83 General Appearance: No Apparent Distress HEENT: PERRL/EOMI Neck: Full Range of Motion Respiratory: Rhonci, Wheezing Cardiovascular: Regular Rate, Rhythm Gastrointestinal: normal bowel sounds, non tender, soft Extremity: Normal Capillary Refill Neurologic/Psychiatric: Alert, Oriented x3 Skin: Normal Color Lymphatic: No Adenopathy Results Lab Laboratory Tests 11/30/16 05:09 12/01/16 05:30 Assessment/Plan Assessment/Plan s/p right hemicolectomy -pain control ileocolonic anastomotic fistula with abd wall. no abscess or obstruction Surgery is following Adenocarcinoma of right colon Hypoxia secondary to atelectasis and pulmonary edema -Labs reviewed BNP is 1031 -Pt is scheduled for lasix this AM after 1 unit of PRBC -Will give 40 IV before and 40 IV after PRBC secondary to pulmonary edema -D/C NS gtt and continue TPN Ileus post op -Surgery following Malnutrition with hypoalbuminemia and third spacing - TPN started 11/24/16 Paroxysmal Afib per RN - cardiology consulted Atelectasis r/o PNA - Doubt pneumonia -IS -SVNs-- change to easy PAP -increase activity -PT/OT GI/DVT ppx -lovenox, SCDs, protonix 232 MONE GRIFFIN DO Dec 01, 2016 07:01
--- NOTE | 2016-12-01 07:14 | Diagnostic Imaging Report ---
CHEST 1 VIEW, AP/PA ONLY INDICATION: Shortness of breath. COMPARISON: 11/28/2016. FINDINGS: Support Devices: Stable left subclavian central venous catheter. Chest: Low lung volumes. No change in right perihilar opacities and left basilar bandlike opacities. No pleural effusion or pneumothorax. Stable borderline cardiomegaly. IMPRESSION: 1. Stable left subclavian central venous catheter. 2. No change in perihilar and basilar opacities which could relate to atelectasis due to low lung volumes. Dictated by: Dictated on workstation # [id number]
[2016-12-01] MEDS ORDERED: FUROSEMIDE 40 MG/4 ML INJ (LASIX) IVP NR ×2 (07:45→09:00)
[2016-12-01 08:00] VITALS: BP_SYST 138; BP_SYST 143; BP_DIAS 75; BP_DIAS 81
[2016-12-01] MEDS: PANTOPRAZOLE 40 MG/10 ML (PROTONIX) VIAL IV SCH (08:19)
[2016-12-01] MEDS: ENOXAPARIN 30 MG/0.3 ML (LOVENOX) SYR SC SCH (08:21)
[2016-12-01] MEDS: SENNA W/DOCUSATE (SENOKOT S) TABLET PO SCH (08:23)
[2016-12-01] MEDS: meTOprolol SUCCINATE 100 MG (TOPROL XL) TAB PO SCH (08:23)
[2016-12-01] MEDS ORDERED: CEFEPIME INJECTION 2,000 MG in NS (IVPB) 50 ML IV SCH (09:00)
--- NOTE | 2016-12-01 09:33 | Progress Note-Cardiology ---
Cardiology SOAP Progress Note Subjective: In bed. States she feels her breathing is better today. She feels her swelling in her hands is better. Objective: I&O/Vital Signs Vital Sign - Last 12Hours 12/01/16 12/01/16 12/01/16 12/01/16 04:10 06:41 08:00 10:29 Temp 99.2 99.9 Pulse 76 84 Resp 18 18 B/P (MAP) 129/57 143/75 Pulse Ox 95 91 96 94 O2 Delivery Nasal Cannula Nasal Cannula Nasal Cannula Nasal Cannula O2 Flow Rate 3.00 3.00 3.00 3.00 12/01/16 12/01/16 12/01/16 10:34 10:45 13:23 Temp 99.2 98.9 99.0 Pulse 81 87 83 Resp 20 20 B/P (MAP) 138/72 138/73 137/70 Pulse Ox 94 96 O2 Delivery Nasal Cannula Nasal Cannula Nasal Cannula O2 Flow Rate 3.00 3.00 3.00 Weight (Pounds): 234 Weight (Ounces): 8.0 Weight (Calculated Kilograms): [id number] Constitutional: AAO x 3, well-developed, well-nourished Respiratory: No accessory muscle use, other (Fair air entry, but diminished at both bases) Cardiovascular: regular rate-rhythm, S1 and S2 Gastrointestional: other (s/p abd surgery, audible bs) Extremities: No clubbing, No cyanosis, significant edema (marked bilateral upper and lower ext edema) Neurologic/Psychiatric: oriented x 3, grossly intact, power is 5/5 both on sides Skin: No rash on exposed areas, No ulcerations on exposed areas Results/Procedures: Labs Laboratory Tests 12/01/16 05:30: White Blood Count 16.6H, Red Blood Count 2.76L, Hemoglobin 7.5L, Hematocrit 24L , Mean Corpuscular Volume 86, Mean Corpuscular Hemoglobin 27, Mean Corpuscular Hemoglobin Concent 32, Red Cell Distribution Width 19.2H, Platelet Count 308, Mean Platelet Volume 10.3, Neutrophils (%) (Auto) 78H, Lymphocytes (%) (Auto) 7L , Monocytes (%) (Auto) 13H, Eosinophils (%) (Auto) 2, Basophils (%) (Auto) 0, Neutrophils # (Auto) 13.0H, Lymphocytes # (Auto) 1.2, Monocytes # (Auto) 2.1H, Eosinophils # (Auto) 0.3, Basophils # (Auto) 0.0, Sodium Level 137, Potassium Level 4.4, Chloride Level 103, Carbon Dioxide Level 25, Anion Gap 9, Blood Urea Nitrogen 37H, Creatinine 0.72, Estimat Glomerular Filtration Rate > 60, BUN/ Creatinine Ratio 51, Glucose Level 108H, Calcium Level 7.5L, Phosphorus Level 3.8, Magnesium Level 2.1 Microbiology 11/23/16 Blood Culture - Final, Complete No growth 11/23/16 Gram Stain - Final, Complete 11/23/16 Body Fluid Culture - Final, Complete Escherichia Coli 11/29/16 Urine Culture - Final, Complete Presumptive Anjali Albicans Laboratory Tests 11/30/16 05:09 12/01/16 05:30 A/P: Assessment: Gen anasarca; probably related to hypoproteinemia, but diastolic CHF is also a consideration. Post-op volume overload vs ac diastolic CHF Echo of 12/01/16: LVEF 60-65%, PASP 40-45 mmHg Post right hemicolectomy for adenocarcinoma of the colon per Dr. Gaston PAF documented during hosp of early Dec 2014. Currently maintaining sinus rhythm Previously was on Eliquis for stroke prevention - does not appear ready for resumption due to markedly low and slowly declining Hgb Elevated BMI of approx 43 No evidence of ischemia or infarction on MPI of 12/11/14; LVEF was 74% H/o hypertension Anemia - transfusion per medical/surgical services Plan: Complex management due to multiple comorbidities Furosemide to reduce fluid overload and gen edema Not ready for Eliquis (see above) Continue to monitor rhythm (seems to be maintaining NSR, fortunately) Monitor labs closely Anemia - transfusion today per medical/surgical services Physician Assessment Physician Assessment Sitting in chair. Notes malaise and gen swelling. Denies cp or palp or syncope Cor: reg Lung: dullness and diminished air entry at basis Ext: 2-3+ edema Echo: see above A&R * As documented in our note above that I update (italics) and as noted below * Continue diuretics as needed * Monitor labs closely * Resume apixaban when H/H stable and on ongoing bleeding ARIS TRINIDAD BUNCH MAKER HAND Dec 01, 2016 09:33 EMILY HILTON MD FACP [facility] Dec 01, 2016 14:40
[2016-12-01] MEDS: FLUCONAZOLE 100 MG/50 ML 50 ML IV SCH (09:45)
[2016-12-01] MEDS ORDERED: NS (IVPB) 100 ML ONE (10:03)
--- NOTE | 2016-12-01 10:18 | Occupational Ther Daily Note ---
OT Current Status-Daily Note Subjective Pt lying in bed sleeping. Woke easily to name. Pt agreed to therapy. C/o fatigue. Mental Status/Objective Functional [place] Measure 0=Not Assessed/NA 4=Minimal Assistance 1=Total Assistance 5=Supervision or Setup 2=Maximal Assistance 6=Modified [place] 3=Moderate Assistance 7=Complete [place] Attachments: Drains, Nelson Catheter, IV, PEG Tube, Telemetry Other Treatment Pt agreed to work on sitting EOB. Pt required mod A to slide legs to side of the bed then max A to go from supine to sitting EOB. Pt was able to sit EOB with supervision. While sitting EOB pt had to stabilize with both UE's by leaning back on them. Pt was able to place both hands on knees and sit upright for 3 seconds before stating I can't do it and placing hands back on bed. HERNANDEZ encouraged pt to stand and shuffle feet to move up toward HOB. Mod A for sit to stand and min A to shuffle feet with FWW to HOB. Max A to go from sitting EOB to supine then total assist to scoot up in bed x2. Nrsg present in room after therapy. Call light/phone in reach. All needs met in room. OT Short Term Goals Short Term Goals 1=Demonstrate adherence to instructed precautions during ADL tasks. 2=Patient will verbalize/demonstrate understanding of assistive devices/ modifications for ADL. 3=Patient will improve strength/tolerance for activity to enable patient to perform ADL's. OT Intermediate Goals Intermediate Goals Time Frame: Dec 11, 2016 Eating (FIM): 6 Grooming(FIM): 6 Bathing(FIM): 5 Upper Body Dressing(FIM): 5 Lower Body Dressing(FIM): 5 Toileting(FIM): 6 Toilet/Commode Transfer(FIM): 6 Shower Transfer(FIM): 5 Additional Goals: 2-Verbalize Understanding, 3-ImproveStrength/Shari 1=Demonstrate adherence to instructed precautions during ADL tasks. 2=Patient will verbalize/demonstrate understanding of assistive devices/ modifications for ADL. 3=Patient will improve strength/tolerance for activity to enable patient to perform ADL's. OT Education/Plan Problem List/Assessment Pt would benefit from skilled OT to increase her independence in basic self care to allow her to safely return to her home and to decrease caregiver burden Discharge Recommendations Plan/Recommendations: Continue POC Treatment Plan/Plan of Care Patient would benefit from OT for education, treatment and training to promote independence in ADL's, mobility, safety and/or upper extremity function for ADL' s. Plan of Care: ADL Retraining, Functional Mobility, UE Funct Exercise/Act, UE Neuromus Re-Ed/Coord Treatment Duration: Dec 11, 2016 Frequency: 5 times per week Estimated Hrs Per Day: .25 hour per day Agreement: Yes Rehab Potential: Good Time/GCodes Start Time: 08:35 Stop Time: 08:55 Total Time Billed (hr/min): 20 Billed Treatment Time 1 visit-FA 1 (20 min) RL CHARLES Dec 01, 2016 10:18
[2016-12-01 10:34] VITALS: BP 138/72
[2016-12-01 10:45] VITALS: BP 138/73
--- NOTE | 2016-12-01 11:54 | Progress Note-Hospitalist ---
Standard Progress Note Progress Notes/Assess & Plan Date Seen 12/01/16 Time Seen by Provider: 11:46 Diagnosis Assessment: Status post right colectomy due to cancer Postop ileus on NG tube History of hypertension Assess & Plan/Chief Complaint The patient was observed in a physical therapy session. She required a belt and 2 person assist to stand from the bed. She was asked to step forward and had that performed this poorly. It would appear that it is time to push relative to the uatsdin of ambulation and also to improving nutrition. Physical exam: Lungs are clear to auscultation. CV is regular without murmur. Extremities show no pedal edema. Impression: Day 12 postop right hemicolectomy for adenocarcinoma. 2.entero- cutaneous fistula as postop complication. 3.severe deconditioning. Plan: Switch to swing bed status and pressure to advance effort at physical therapy. Labs Laboratory Tests 11/30/16 05:09 12/01/16 05:30 JANICE MANCILLA MD Dec 01, 2016 11:54
--- NOTE | 2016-12-01 11:58 | Physical Therapy Daily Note ---
PT Daily Note-Current Subjective Patient reports increase in abdominal pain and swelling. Reluctantly agrees to PT. Pain Numeric Pain Scale: 10-Worst Possible Pain Location: Medial, Lower Location Body Site: Abdomen Pain Description: Pressure, Sharp Appearance 3+ edema total body Mental Status Patient Orientation: Normal For Age Attachments: Oxygen, Nelson Catheter, IV Transfers Functional [place] Measure 0=Not Assessed/NA 4=Minimal Assistance 1=Total Assistance 5=Supervision or Setup 2=Maximal Assistance 6=Modified [place] 3=Moderate Assistance 7=Complete IndependenceIRFPAI Quality Coding Scale 6 Independent with activity with or without an assistive device 5 Patient requires set up or clean up by helper. Patient completes activity by themselves 4 Supervision or touching assist (CGA). [place] provide cues , steadying assist 3 The helper provides less than half the effort to complete the activity 2 The helper provides more than half the effort to complete the activity 1 Dependent. The helper does all the effort to complete an activity 7 Patient refused to complete or attempt activity 9 The patient did not perform the activity before the current illness or injury 88 Not attempted due to Medical conditions or safety concerns Transfers (B, C, W/C) (FIM): 2 Scootin Rollin Supine to/from Sit: 2 Sit to/from Stand: 2 Bed to/from Chair: 2 Patient incontinent BM during treatment session. Patient transferred to [facility] with nursing is present. Assessment Patient tolerated minimal activity on this date. Dr. Valdes present to assess mobility. PT Fci Goals Network Security Engineer Goals PT Network Security Engineer Goals Time Frame: Dec 11, 2016 Transfers (B,C,W/C) (FIM): 6 Gait (FIM): 6 Gait distance (FIM): 3=150 ft Gait Level of Assist: 6 Gait Assistive Device: FWW PT Plan Treatment/Plan Treatment Plan: Continue Plan of Care Treatment Plan: Bed Mobility, Education, Functional Activity Shari, Functional Strength, Gait, Safety, Therapeutic Exercise, Transfers Treatment Duration: Dec 11, 2016 Frequency: 6 times per week Estimated Hrs Per Day: .5 hour per day Patient and/or Family Agrees t: Yes Time/GCodes Time In: 1130 Time Out: 1145 Total Billed Treatment Time: 15 Total Billed Treatment 1 visit FA 15 min MICHELLE ROLLINS PT Dec 01, 2016 11:58
--- NOTE | 2016-12-01 12:11 | Progress Note (SOAP) ---
Subjective Date Seen by Provider: Dec 01, 2016 Time Seen by Provider: 12:00 Subjective/Events-last exam doing better. fistula output same. also had 2 BM's per rectum. no fever/chills. still ambulating poorly. Objective Exam Vital Signs Date Time Temp Pulse Resp B/P (MAP) Pulse Ox O2 Delivery O2 Flow Rate FiO2 12/01/16 10:45 98.9 87 20 138/73 94 Nasal Cannula 3.00 12/01/16 10:34 99.2 81 138/72 Nasal Cannula 3.00 12/01/16 10:29 94 Nasal Cannula 3.00 12/01/16 08:00 99.9 84 18 143/75 96 Nasal Cannula 3.00 12/01/16 06:41 91 Nasal Cannula 3.00 12/01/16 04:10 99.2 76 18 129/57 95 Nasal Cannula 3.00 12/01/16 00:54 76 12/01/16 00:00 98.9 92 18 139/64 97 Nasal Cannula 3.00 11/30/16 21:10 98.8 11/30/16 20:30 Nasal Cannula 3.00 11/30/16 20:24 100.0 86 20 136/65 95 Nasal Cannula 3.00 11/30/16 19:06 82 11/30/16 19:01 94 Nasal Cannula 3.00 11/30/16 15:33 98.4 89 20 132/63 96 Nasal Cannula 3.00 11/30/16 14:50 98 Nasal Cannula 2.00 11/30/16 13:00 85 Capillary Refill : General Appearance: No Apparent Distress HEENT: PERRL/EOMI Neck: Full Range of Motion Respiratory: Rhonci, Wheezing Cardiovascular: Regular Rate, Rhythm Gastrointestinal: normal bowel sounds, non tender, soft Extremity: Normal Capillary Refill Neurologic/Psychiatric: Alert, Oriented x3 Skin: Normal Color Lymphatic: No Adenopathy Results Lab Laboratory Tests 12/01/16 05:30: White Blood Count 16.6H, Red Blood Count 2.76L, Hemoglobin 7.5L, Hematocrit 24L , Mean Corpuscular Volume 86, Mean Corpuscular Hemoglobin 27, Mean Corpuscular Hemoglobin Concent 32, Red Cell Distribution Width 19.2H, Platelet Count 308, Mean Platelet Volume 10.3, Neutrophils (%) (Auto) 78H, Lymphocytes (%) (Auto) 7L , Monocytes (%) (Auto) 13H, Eosinophils (%) (Auto) 2, Basophils (%) (Auto) 0, Neutrophils # (Auto) 13.0H, Lymphocytes # (Auto) 1.2, Monocytes # (Auto) 2.1H, Eosinophils # (Auto) 0.3, Basophils # (Auto) 0.0, Sodium Level 137, Potassium Level 4.4, Chloride Level 103, Carbon Dioxide Level 25, Anion Gap 9, Blood Urea Nitrogen 37H, Creatinine 0.72, Estimat Glomerular Filtration Rate > 60, BUN/ Creatinine Ratio 51, Glucose Level 108H, Calcium Level 7.5L, Phosphorus Level 3.8, Magnesium Level 2.1 Microbiology 11/23/16 Blood Culture - Final, Complete No growth 11/23/16 Gram Stain - Final, Complete 11/23/16 Body Fluid Culture - Final, Complete Escherichia Coli 11/29/16 Urine Culture - Preliminary, Resulted Presumptive Anjali Albicans Assessment/Plan Assessment/Plan Assess & Plan/Chief Complaint s/p laparoscopic right hemicolectomy. 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 no abscess or obstruction. passing flatus. no fevers. CT abdomen showed normal post surgical change. no abscess. will treat fistula now with low residue diet/TPN and abx. protect surrounding skin with ostomy applicance. pain controlled and VSS. will transfer to floor and involve hospitalist and SS for SWB vs. rehab PRBC followed by lasix for continued symptomatic anemia. STEPHANY ALY MD Dec 01, 2016 12:11
[2016-12-01 13:23] VITALS: BP 137/70
== END 2016-12-01 12:11 | disposition swing bed (61) | DRG 329 ==
LOC: 4TH 10:06 → SURG 10:07 → ICU 16:12 → 4TH 11-26 19:00
PROVIDERS: ADMIT Surgery; ATTEND Surgery
PROC: 0DTF4ZZ Resection of Right Large Intestine, Percutaneous Endoscopic Approach (ICD-10-PCS; principal; 2016-11-19 12:39)
DX: C18.8 Malignant neoplasm of overlapping sites of colon (principal); K65.9 Peritonitis, unspecified; N39.0 Urinary tract infection, site not specified; K56.7 Ileus, unspecified; E46 Unspecified protein-calorie malnutrition; J98.11 Atelectasis; E87.2 Acidosis; K63.2 Fistula of intestine; R34 Anuria and oliguria; R60.1 Generalized edema; E88.09 Other disorders of plasma-protein metabolism, not elsewhere classified; I48.0 Paroxysmal atrial fibrillation; N28.9 Disorder of kidney and ureter, unspecified; I10 Essential (primary) hypertension; D64.9 Anemia, unspecified; J44.9 Chronic obstructive pulmonary disease, unspecified; J30.2 Other seasonal allergic rhinitis; G62.9 Polyneuropathy, unspecified; E86.0 Dehydration; I89.0 Lymphedema, not elsewhere classified; E66.9 Obesity, unspecified; Z68.37 Body mass index [BMI] 37.0-37.9, adult; M19.91 Primary osteoarthritis, unspecified site; B96.1 Klebsiella pneumoniae [K. pneumoniae] as the cause of diseases classified elsewhere; B96.20 Unspecified Escherichia coli [E. coli] as the cause of diseases classified elsewhere
CPT/HCPCS: 36415; 71010; 71250; 74000; 74176; 80048; 80051; 80202; 81000; 81275; 82040; 82570; 82805; 82962; 83605; 83735; 83880; 84100; 84134; 84478; 84484; 85007; 85018; 85025; 85027; 86850; 86900; 86901; 86920; 87040; 87070; 87077; 87088; 87186; 87205; 88304; 88309; 88341; 88342; 88381; 93005; 93306; 94640; 94664; 94760

== ENCOUNTER 2016-12-07 10:21 | Inpatient (IN) | payer MEDICARE ==
[~2016-12-07] VITALS: Ht 157.5 cm; Wt 77.7 kg
[2016-12-07 11:05] VITALS: BP 137/76
--- NOTE | 2016-12-07 13:28 | Physical Therapy Evaluation ---
PT Evaluation-General Medical Diagnosis Admission Date Dec 07, 2016 at 10:45 Medical Diagnosis: COPD myopathy Onset Date: Nov 19, 2016 Therapy Diagnosis Therapy Diagnosis: generalized weakness/debility Height/Weight Height (Feet): 5 Height (Inches): 2.00 Weight (Pounds): 234 Weight (Ounces): 8.0 Precautions Precautions/Isolations: Standard Precautions Weight Bear Status Right Lower Extremity: Right Weight Bearing/Tolerated Left Lower Extremity: Left Weight Bearing/Tolerated Referral Physician: Dre Reason for Referral: Evaluation/Treatment Medical History Pertinent Medical History: Atrial Fib, Arthritis, HTN Additional Medical History colon resection/colon cancer Current History transfer to ARU for continued care Reviewed History: Yes Social History Home: Single Level Current Living Status: Alone Entry Into Home: Stairs With Railing PT Steps Into Home: 2 Prior/Core FIM Prior Level of Function Functional [place] Measure 0=Not Assessed/NA 4=Minimal Assistance 1=Total Assistance 5=Supervision or Setup 2=Maximal Assistance 6=Modified [place] 3=Moderate Assistance 7=Complete [place] Bed Mobility: 7 Transfers (B,C,W/C) (FIM): 7 Gait: 7 Locomotion: 7 works at [employer] PT Evaluation-Current Subjective Patient agrees to PT. Pain Numeric Pain Scale: 3 Location: Medial, Lower Location Body Site: Abdomen Pain Description: Pressure Objective Patient Orientation: Normal For Age Problem Solving: Good Attachments: Oxygen (1L) ROM/Strength ROM Lower Extremities bilateral LE WNL Strenght Lower Extremities right knee flexion/extension 4/5; hip flexion 4/5; ankle dorsi/plantarflexion 4/ 5 left knee flexion/extension 4/5; hip flexion 4/5; ankle dorsi/plantarflexion 4/5 Integumentary/Posture Integumentary refer to nursing notes Bowel Incontinence: No Bladder Incontinence: No Posture WNL Neuromuscular (Tone, Coordination, Reflexes) grossly intact Sensory Vision: Functional Hearing: Functional Sensation Right Lower Extremit: Intact Sensation Left Lower Extremity: Intact Transfers Functional [place] Measure 0=Not Assessed/NA 4=Minimal Assistance 1=Total Assistance 5=Supervision or Setup 2=Maximal Assistance 6=Modified [place] 3=Moderate Assistance 7=Complete IndependenceIRFPAI Quality Coding Scale 6 Independent with activity with or without an assistive device 5 Patient requires set up or clean up by helper. Patient completes activity by themselves 4 Supervision or touching assist (CGA). [place] provide cues , steadying assist 3 The helper provides less than half the effort to complete the activity 2 The helper provides more than half the effort to complete the activity 1 Dependent. The helper does all the effort to complete an activity 7 Patient refused to complete or attempt activity 9 The patient did not perform the activity before the current illness or injury 88 Not attempted due to Medical conditions or safety concerns Transfers (B, C, W/C) (FIM): 4 Scootin Rollin Roll Left to Right (QC): 3 Supine to/from Sit: 4 Sit to/from Stand: 4 Sit to Lying (QC): 3 Lying to Sitting/Side of Bed(Q: 3 Sit to Stand (QC): 3 Chair/Ddz-gp-Myssu Xfer(QC): 3 Car Transfer (QC): 88 Gait Does the Patient Walk?: Yes Mode of Locomotion: Walk Anticipated Mode of Locomotion: Walk Gait (FIM): 4 Distance (FIM): 3=150 ft Walk 10 feet (QC): 3 Walk 50 ft with 2 Turns(QC): 3 Walk 150 ft (QC): 3 Walking 10ft/uneven surface-QC: 3 Distance: 250' x 4 Gait Level of Assist: 4 Gait Persons Needed: 1 Gait Assistive Device: FWW Comments/Gait Description slow, steady, reciprocal pattern; multiple standing recovery periods due to SOA Wheelchair Training Does the Pt Use a Wheelchair?: No Stairs Stairs (FIM): 2 #of Steps: 4 Level of Assist: 4 1 Step (curb) (QC): 3 4 Steps (QC): 3 Assistive Device: Walker 12 Steps (QC): 88 Balance Sitting Static: Normal Sitting Dynamic: Normal Standing Static: Normal Standing Dynamic: Normal Treatment Sit to stand transfers x 7 SBA from chair with bilateral armrests to improve functional mobility. Patient requires recovery periods due to SOA. Assessment/Needs 81 y.o. female, will benefit from skilled PT to address functional strength and mobility to improve current LOF to safely return to home at maximum LOF. Rehab Potential: Good PT Commercial Lines Underwriter Goals Senior Living Goals PT Commercial Lines Underwriter Goals Time Frame: Dec 25, 2016 Transfers (B,C,W/C) (FIM): 6 Sit to Lying (QC): 5 Lying-Sitting on Side/Bed(QC): 5 Sit to Stand (QC): 5 Rollin Roll Left to Right (QC): 5 Chair/Stk-go-Yahsz Xfer(QC): 5 Car Transfer (QC): 5 Does the Patient Walk: Yes Gait (FIM): 6 Gait distance (FIM): 3=150 ft Distance: 300' Walk 10 feet (QC): 5 Walk 10ft-Uneven Surface(QC): 5 Walk 50ft with 2 Turns (QC): 5 Walk 150 ft (QC): 5 Gait Level of Assist: 6 Gait Assistive Device: FWW Stairs (FIM): 5 # of Steps: 12 1 Step (curb) (QC): 4 4 Steps (QC): 4 12 Steps (QC): 4 Stairs Level Of Assist: 5 Picking up an Object (QC): 5 PT Plan Problem List Problem List: Activity Tolerance Treatment/Plan Treatment Plan: Continue Plan of Care Treatment Plan: Bed Mobility, Education, Functional Activity Shari, Functional Strength, Group Therapy, Gait, Safety, Therapeutic Exercise, Transfers Treatment Duration: Dec 25, 2016 Frequency: At least 5 of 7 days/Wk (IRF) Estimated Hrs Per Day: 1.5 hours per day Patient and/or Family Agrees t: Yes Safety Risks/Education Patient Education: Gait Training, Safety Issues Teaching Recipient: Patient Teaching Methods: Demonstration, Discussion Response to Teaching: Verbalize Understanding, Return Demonstration Discharge Recommendations Therapy D/C Recommendations: Home w/ Family Support, Physical Therapy Home Care Equpiment Recommendations-D/C: Front Wheeled Walker Time/GCodes Time In: 1045 Time Out: 1145 Total Billed Treatment Time: 60 Total Billed Treatment 1 visit EVModC 40 min FA 20 min G Codes Necessary: MICHELLE Sahu PT Dec 07, 2016 13:28
--- NOTE | 2016-12-07 13:36 | ST Cognitive Linguistic Eval ---
Speech Evaluation-General Medical Diagnosis Adenocarcinoma (Colon) Therapy Diagnosis Therapy Diagnosis: Cognitive Linguistic Skills WNL Referral Referring Physician: Dr. Agus Erickson Reason for Referral: Evaluation/Treatment Cognitive Evaluation Medical History Pertinent Medical History: Atrial Fib, Arthritis, HTN Reviewed History: Yes Speech PLF-Current Status Prior Level of Function The patient denied previous difficulty with speech, language, cognition, or swallowing. Subjective The patient is an 81-year-old female admitted to [facility] following a colon procedure secondary to adenocarcinoma. The patient greeted the clinician appropriately and was agreeable to participation in the speech, language, and cognition evaluation. Language Eval: Auditory Comprehends Simple Yes/No Ques: Functional Indent/Objects Multiple Cent[place]: Functional Ident/Pics in Multiple Cent[place]: Functional Follows 1-Step Commands: Functional Follows Complex Directions: Functional Follows General Conversations: Functional Language Eval: Verbal Language Completes Spontaneous Greeting: Functional Produces Auto, Serial Info: Functional Imitates Simple Words/Phrases: Functional Word Finding: Functional Requests Basic Needs: Functional States Basic Personal Info: Functional Expresses Complex Ideas: Functional Cognitive Patient Orientation The patient is independently oriented to month, day of week, date, year, location, and rationale for rehabilitation. Objective Cognitive Domain Attention: WNL Memory: WNL Problem Solving: Functional Executive Functions: WNL (The patient accurately completed trail-making, clock drawing, and cube copying tasks.) Objective Impression The patient displayed cognitive linguistic functions within normal limits and appropriate for completion of ADL's. Communication/Social Cognition Comprehension: 5 Expression: 6 Social Interaction: 5 Problem Solvin Memory: 5 Speech Patient Assess Expression of Ideas/Wants: Expression (4) Understanding V[place]al Content: Understands (4) Brief Interview-Mental Status: Yes Repetition of Three Words: Three (3) Temporal Orientation: Year: Correct (3) Temporal Orientation: Month: Accurate within 5 days(2) Temporal Orientation: Day: Correct (1) Recall : Wear to say "Sock": Yes, no cue required (2) Recall : Color: Yes, no cue required (2) Recall : Bed: Yes, no cue required (2) Speech-Plan Treatment Plan Speech Therapy Treatment Plan: Discontinue ST Evaluation, only. Frequency: Modified Program (IRF) Estimated Hrs Per Day: Other Rehab Potential: Guarded Safety Risks/Education Teaching Recipient: Patient Teaching Methods: Discussion Response to Teaching: Verbalize Understanding Education Topics Provided: Results, Recommendations, Plan of Care Time Speech Therapy Time In: 11:45 Speech Therapy Time Out: 12:00 Total Billed Time: 15 Billed Treatment Time 1, JAYMIE CALHOUN Dec 07, 2016 13:36
--- NOTE | 2016-12-07 13:40 | Physical Therapy Daily Note ---
PT Daily Note-Current Subjective Patient agrees to PT. Patient c/o fatigue. Pain Numeric Pain Scale: 3 Location: Medial, Left Location Body Site: Abdomen Pain Description: Pressure Mental Status Patient Orientation: Normal For Age Attachments: Oxygen Transfers Functional [place] Measure 0=Not Assessed/NA 4=Minimal Assistance 1=Total Assistance 5=Supervision or Setup 2=Maximal Assistance 6=Modified [place] 3=Moderate Assistance 7=Complete IndependenceIRFPAI Quality Coding Scale 6 Independent with activity with or without an assistive device 5 Patient requires set up or clean up by helper. Patient completes activity by themselves 4 Supervision or touching assist (CGA). [place] provide cues , steadying assist 3 The helper provides less than half the effort to complete the activity 2 The helper provides more than half the effort to complete the activity 1 Dependent. The helper does all the effort to complete an activity 7 Patient refused to complete or attempt activity 9 The patient did not perform the activity before the current illness or injury 88 Not attempted due to Medical conditions or safety concerns Transfers (B, C, W/C) (FIM): 4 Scootin Rollin Roll Left to Right (QC): 4 Supine to/from Sit: 4 Sit to/from Stand: 5 Sit to Lying (QC): 3 Sit to Stand (QC): 4 Weight Bearing Right Lower Extremity: Right Weight Bearing/Tolerated Left Lower Extremity: Left Weight Bearing/Tolerated Gait Training Does the Patient Walk?: Yes Gait (FIM): 2 Distance (FIM): 4=276-74 ft Distance: 75' x 2 Walk 10 feet (QC): 4 Walk 50 ft with 2 Turns(QC): 4 Gait Level of Assist: 5 Gait Persons Needed: 1 Gait Assistive Device: FWW Exercises Seated Therapy Exercises: Ankle pumps, Long arc quads, Hip flexion Seated Reps: 10 (3 sets with 2# wt bilaterally) Assessment Progressing with treatment plan. Increase activity as tolerated by patient. PT Rock Loader Goals Rock Loader Goals PT Rock Loader Goals Time Frame: Dec 25, 2016 Transfers (B,C,W/C) (FIM): 6 Sit to Lying (QC): 5 Lying-Sitting on Side/Bed(QC): 5 Sit to Stand (QC): 5 Rollin Roll Left to Right (QC): 5 Chair/Wuf-bc-Gltna Xfer(QC): 5 Car Transfer (QC): 5 Does the Patient Walk: Yes Gait (FIM): 6 Gait distance (FIM): 3=150 ft Distance: 300' Walk 10 feet (QC): 5 Walk 10ft-Uneven Surface(QC): 5 Walk 50ft with 2 Turns (QC): 5 Walk 150 ft (QC): 5 Gait Level of Assist: 6 Gait Assistive Device: FWW Stairs (FIM): 5 # of Steps: 12 1 Step (curb) (QC): 4 4 Steps (QC): 4 12 Steps (QC): 4 Stairs Level Of Assist: 5 Picking up an Object (QC): 5 PT Plan Treatment/Plan Treatment Plan: Continue Plan of Care Treatment Plan: Bed Mobility, Education, Functional Activity Shari, Functional Strength, Group Therapy, Gait, Safety, Therapeutic Exercise, Transfers Treatment Duration: Dec 25, 2016 Frequency: At least 5 of 7 days/Wk (IRF) Estimated Hrs Per Day: 1.5 hours per day Patient and/or Family Agrees t: Yes Time/GCodes Time In: 1250 Time Out: 1320 Total Billed Treatment Time: 30 Total Billed Treatment 1 visit FA 8 min EX 22 min MICHELLE ROLLINS PT Dec 07, 2016 13:40
--- NOTE | 2016-12-07 14:00 | Occupational Therapy Eval ---
OT Evaluation-General/PLF Medical Diagnosis Admission Date Dec 07, 2016 at 10:45 Medical Diagnosis: COPD, myopathy, colon cancer Onset Date: Nov 19, 2016 Therapy Diagnosis Therapy Diagnosis: decr self care, decr act tolerance, decr funct mobility, weakness Height/Weight Height (Feet): 5 Height (Inches): 2.00 Weight (Pounds): 234 Weight (Ounces): 8.0 Precautions Precautions/Isolations: Standard Precautions Referral Physician: Dre Referral Reason: Evaluation/Treatment Medical History Pertinent Medical History: Atrial Fib, Arthritis, HTN Additional Medical History Diverticulosis, asthma, chronic bronchitis, L foot surgery 2010, lymphedema both legs, cataracts, spinal stenosis, Deaf R ear Current History Laparoscopic R hemicolectomy 11-19-16 with post op ileus. Reviewed History: Yes Social History Home: Single Level Current Living Status: Alone Entry Into Home: Stairs With Railing Steps Into Home: 2 ADL-Prior Level of Function ADL PLOF Comments Pt reported that she has been independent with basic self care prior to surgery. 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 She still drives DME/Equipment: Shower, Tub, Toilet/Riser She prefers to take tub baths but has been showering lately OT Current Status Subjective Pt seen in room, up in bed, agreeable to OT. Pain rated 0/10, even when moving Mental Status/Objective Attachments: Colostomy/Ileostomy, Oxygen Current Glasses/Contacts: Yes Hearing Aids: No Dentures/Partials: No Hand Dominance: Right Upper Extremity ROM Grossly WFL bilat. Arthritic changes in hands Upper Extremity Coordination WFL Upper Extremity Sensation WFL Upper Extremity Strength Grossly 4/5 bilat Edema: Slight edema in hands but reduced from acute care. Edema in LEs ADL-Treatment Functional [place] Measure 0=Not Assessed/NA 4=Minimal Assistance 1=Total Assistance 5=Supervision or Setup 2=Maximal Assistance 6=Modified [place] 3=Moderate Assistance 7=Complete IndependenceIRFPAI Quality Coding Scale 6 Independent with activity with or without an assistive device 5 Patient requires set up or clean up by helper. Patient completes activity by themselves 4 Supervision or touching assist (CGA). [employer] provide cues , steadying assist 3 The helper provides less than half the effort to complete the activity 2 The helper provides more than half the effort to complete the activity 1 Dependent. The helper does all the effort to complete an activity 7 Patient refused to complete or attempt activity 9 The patient did not perform the activity before the current illness or injury 88 Not attempted due to Medical conditions or safety concerns Eating (FIM): 6 (Able to only eat and drink clear liquids at this time. No difficulty opening packages or feeding herself) Eating (QC): 6 Education OT Patient Education: Energy conservation, Purpose of tx/functional activities , Rehab process Teaching Recipient: Patient Teaching Methods: Discussion Response to Teaching: Verbalize Understanding OT Short Term Goals Short Term Goals Time Frame: Dec 11, 2016 Lower Body Dressing(FIM): 5 Toileting(FIM): 4 1=Demonstrate adherence to instructed precautions during ADL tasks. 2=Patient will verbalize/demonstrate understanding of assistive devices/ modifications for ADL. 3=Patient will improve strength/tolerance for activity to enable patient to perform ADL's. OT Community Manager Goals Longterm Goals Time Frame: Dec 25, 2016 Eating (FIM): 6 Eating (QC): 6 Groomin Oral Hygiene (QC): 6 Bathing(FIM): 6 Shower/Bathe Self (QC): 6 Upper Body Dressing(FIM): 6 Upper Body Dressing (QC): 6 Lower Body Dressing(FIM): 6 Lower Body Dressing (QC): 6 On/Off Footwear (QC): 6 Toileting(FIM): 6 Toileting Hygiene (QC): 6 Toilet/Commode Transfer(FIM): 6 Toilet/Commode Transfer (QC): 6 Shower Transfer(FIM): 6 Additional Goals: 2-Verbalize Understanding, 3-ImproveStrength/Shari 1=Demonstrate adherence to instructed precautions during ADL tasks. 2=Patient will verbalize/demonstrate understanding of assistive devices/ modifications for ADL. 3=Patient will improve strength/tolerance for activity to enable patient to perform ADL's. OT Education/Plan Problem List/Assessment Assessment: Decreased Activ Tolerance, Decreased UE Strength, Dependent Transfers, Impaired Funct Balance, Impaired Self-Care Skills Pt would benefit from skilled OT to increase her independence in basic self care to allow her to safely return to her home and live independently and to decrease caregiver burden Discharge Recommendations Plan/Recommendations: Continue POC Target Placement home Treatment Plan/Plan of Care Treatment,Training & Education: Yes Patient would benefit from OT for education, treatment and training to promote independence in ADL's, mobility, safety and/or upper extremity function for ADL' s. Plan of Care: ADL Retraining, Functional Mobility, Group Exercise/Act as Ind ( educ, exercise, activ tolerance, funct activities, socialization), UE Funct Exercise/Act, UE Neuromus Re-Ed/Coord Treatment Duration: Dec 25, 2016 Frequency: At least 5 of 7 days/Wk (IRF) Estimated Hrs Per Day: 1.5 hours per day Agreement: Yes Rehab Potential: Good Time/GCodes Start Time: 12:00 Stop Time: 12:15 Total Time Billed (hr/min): 15 Billed Treatment Time visit, evaluation moderate intensity 15 minutes AUSTEN PISANO OT Dec 07, 2016 14:00
--- NOTE | 2016-12-07 15:24 | Occupational Ther Daily Note ---
OT Current Status-Daily Note Subjective Pt seen in room, agreeable to ADLs. She had requested time to rest after PT and this was provided to her. No pain mentioned. Appearance Alert, cooperative Mental Status/Objective Functional [place] Measure 0=Not Assessed/NA 4=Minimal Assistance 1=Total Assistance 5=Supervision or Setup 2=Maximal Assistance 6=Modified [place] 3=Moderate Assistance 7=Complete [place] Attachments: Colostomy/Ileostomy, Oxygen ADL-Treatment Pt walked to and from bathroom with CGA, FWW and assist to manage O2 tubing. Pt sat to groom. Pt educ use of dressing stick and sock aid to put pants and slipper socks on. Pt did not have clothing for upper body dressing . At end of tx, pt left up in recliner, legs elevated, all needs met, O2 in place. Functional [place] Measure 0=Not Assessed/NA 4=Minimal Assistance 1=Total Assistance 5=Supervision or Setup 2=Maximal Assistance 6=Modified [place] 3=Moderate Assistance 7=Complete IndependenceIRFPAI Quality Coding Scale 6 Independent with activity with or without an assistive device 5 Patient requires set up or clean up by helper. Patient completes activity by themselves 4 Supervision or touching assist (CGA). [place] provide cues , steadying assist 3 The helper provides less than half the effort to complete the activity 2 The helper provides more than half the effort to complete the activity 1 Dependent. The helper does all the effort to complete an activity 7 Patient refused to complete or attempt activity 9 The patient did not perform the activity before the current illness or injury 88 Not attempted due to Medical conditions or safety concerns Grooming (FIM): 5 (Setup to brush teeth and hair, seated, at sink. Washed face and hands in shower. No makeup) Oral Hygiene (QC): 5 Bathing (FIM): 4 (Washed and dried all parts except lower legs. Shower bench, grab bars, hand held shower. ) Shower/Bathe Self (QC): 3 Lower Body Dressing (FIM): 3 (Help to get pants off and on over feet. Unable to get slipper socks off or on by herslef. SBA when standing to pull pants up and a little help needed to get them up over hips. FWW) Lower Body Dressing (QC): 3 On/Off Footwear (QC): 1 Toileting (FIM): 2 (Per PT, help to wipe and to pull pnats up. Able to push panties down. ) Toileting Hygiene (QC): 2 Toilet/Commode Transfer (FIM): 4 (Per PT, CGA on and off BSC over toilet, FWW, grab bar) Toilet Transfer (QC): 4 Shower Transfer(FIM): 4 (CGA, cues for technique and hand placement) Education OT Patient Education: Energy conservation, Modified ADL techniques, Progress toward Goal/Update tx plan, Purpose of tx/functional activities, Rehab process, Safety issues, Transfer techniques, Use of adapted equipment Teaching Recipient: Patient Teaching Methods: Demonstration, Discussion Response to Teaching: Verbalize Understanding, Return Demonstration, Reinforcement Needed OT Short Term Goals Short Term Goals 1=Demonstrate adherence to instructed precautions during ADL tasks. 2=Patient will verbalize/demonstrate understanding of assistive devices/ modifications for ADL. 3=Patient will improve strength/tolerance for activity to enable patient to perform ADL's. OT Fci Goals Perpetual Inventory Clerk Goals 1=Demonstrate adherence to instructed precautions during ADL tasks. 2=Patient will verbalize/demonstrate understanding of assistive devices/ modifications for ADL. 3=Patient will improve strength/tolerance for activity to enable patient to perform ADL's. OT Education/Plan Problem List/Assessment Pt would benefit from skilled OT to increase her independence in basic self care to allow her to safely return to her home and live independently and to decrease caregiver burden Discharge Recommendations Plan/Recommendations: Continue POC Treatment Plan/Plan of Care Patient would benefit from OT for education, treatment and training to promote independence in ADL's, mobility, safety and/or upper extremity function for ADL' s. Treatment Duration: Dec 25, 2016 Frequency: At least 5 of 7 days/Wk (IRF) Estimated Hrs Per Day: 1.5 hours per day Agreement: Yes Rehab Potential: Good Time/GCodes Start Time: 14:00 Stop Time: 15:06 Total Time Billed (hr/min): 66 Billed Treatment Time visit, 66 minutes ADL AUSTEN PISANO OT Dec 07, 2016 15:24
[2016-12-07] MEDS ORDERED: ENOXAPARIN 30 MG/0.3 ML (LOVENOX) SYR SC SCH (16:45)
[2016-12-07] MEDS ORDERED: SENNA W/DOCUSATE (SENOKOT S) TABLET PO SCH (16:45)
[2016-12-07] MEDS ORDERED: ACETAMINOPHEN 500 MG TAB (TYLENOL) PO PRN (16:45)
[2016-12-07] MEDS ORDERED: diphenhydrAMINE 25 MG TAB (BENADRYL) PO PRN (16:45)
[2016-12-07] MEDS ORDERED: meTOprolol SUCCINATE 100 MG (TOPROL XL) TAB PO SCH (16:45)
[2016-12-07] MEDS ORDERED: MAGIC MOUTHWASH (ADULT) PO SCH ×4 (16:46)
[2016-12-07] MEDS ORDERED: MICONAZOLE 2% POWDER (DESENEX AF) 90 GM TOP SCH (16:46)
[2016-12-07] MEDS: MEROPENEM 500 MG in NS (IVPB) 100 ML IV SCH (16:55)
[2016-12-07 18:30] VITALS: BP 146/75
[2016-12-07] MEDS: RT-ALBUTEROL SULF 2.5 MG/3 ML PRE-MIX VIAL IH SCH (18:53)
--- NOTE | 2016-12-07 23:24 | HISTORY AND PHYSICAL ---
DATE OF SERVICE: 12/07/2016 CHIEF COMPLAINT: Difficulty with walking. HISTORY OF PRESENT ILLNESS: The patient is an 81 yo female who was admitted to [facility] on the 19 of November due to abdominal cancer requiring right laparoscopic hemicolectomy with DR ALY General Surgery. She has postop complications of an ileocolonicanastomatic fistula,as well as pneumonia and severe anemia requiring transfusions. She had postop ileus whic required an NG tube. She had pleural effusions, hypokalemia. 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 She was transferred to the fourth floor med/surg floor on 11/26/16 from ICU for ongoing care and then to swing bed status on 12/01/16.Therapies were begun and the patient was felt to be appropriate for IRU. She requires assistance for her ADLs and mobility skills. She had been independent prior to this and living alone in [place]. She does have a supportive son nearby. She is currently on O2 by nasal cannula,but had not been on supplemental O2 prior to this at home.She is mod assist for transfers bedmobility and gait with FWW She is setup for eating and grooming,She is rt hand dominant She is Continent of Bladder. PAST MEDICAL HISTORY: Hypertension. PAST SURGICAL HISTORY: As per above. ALLERGIES: No known medication allergies. FAMILY HISTORY: Noncontributory. SOCIAL HISTORY: She is a . PCP is Dr. Max. REVIEW OF SYSTEMS: A 10-point review of systems significant for weakness, shortness of breath. MEDICATIONS: Tylenol Extra Strength 500 mg p.o. b.i.d., amlodipine 5 mg p.o. daily, calcium carbonate with vitamin D one tablet p.o. daily, vitamin D3 1000 units p.o. daily, vitamin B12 1000 mg p.o. daily, metoprolol 100 mg p.o. b.i.d., Singulair 10 mg p.o. each day at bedtime, multivitamins one tablet p.o. daily, KCl 99 mg p.o. daily. PHYSICAL EXAMINATION: GENERAL: Significant for a pleasant female appearing her stated age, lying in bed in no acute distress. VITAL SIGNS: O2 sat 97% on 1.5 liters of O2 by nasal cannula, blood pressure 137/76. She is afebrile. Pulse is 76. Respirations 20. HEENT: The patient's speech and hearing are grossly intact. No oral lesion is noted. NECK: Supple without mass. HEART: Regular rhythm. LUNGS: Clear. ABDOMEN: Soft, nontender. Bowel sounds present. Surgical site healing well.Fistula with ostomy bag in place EXTREMITIES: She has 1+ pitting edema both ankles. No calf tenderness.Trace edema in hands. MUSCULOSKELETAL: She has functional active range of motion of all 4 extremities. NEUROLOGIC: Sensation is grossly intact to touch. Cognition grossly intact. She has good strength both upper extremities, right lower extremity and left lower extremity 4/5. IMPRESSION: 1. COPD Myopathy/ General debilitation secondary to abdominal surgery for colon cancer, status post RT hemicolectomy with postop complication of ileocolonic anastomotic fistula. 2. Postop complications of pneumonia improved. 3. Postop anemia requiring transfusions. 4. Edema. 5. Hypokalemia, treated. 6. Pleural effusions, treated. PLAN: The patient will have a comprehensive program of inpatient rehabilitation with the goal of maximizing level of functional independence prior to discharge home with home health care and son. Son presents to unit with her. He is very supportive and lives nearby. The patient will have PT/OT 90 minutes per day each discipline 5 days a week for 2 weeks for gait, strengthening, conditioning, ADLs, balance, any patient/family caregiver training necessary, any adaptive equipment and training necessary. Speech therapy to do cognitive assessment, treat as indicated. Rehabilitation nursing to assist with bowel,fistula, bladder, skin, wound care, medication administration, pain management. Respiratory therapy to assist with O2 administration, wean as able. clinical services consultant to assist with discharge planning, community reentry. Followup with hospitalist service and DR Aly surgeon as per their schedule. ESTIMATED LENGTH OF STAY: Two weeks. PROGNOSIS: Rehab prognosis appears good for goal of discharging to home, modified independence to supervision for ADLs and mobility skills with home health care and son to assist as needed. DIET: Regular. CODE STATUS: Full code. Job ID: [id number] DocumentID: [id number] Dictated Date: 12/07/2016 21:41:32 Manager Massage Department Date: 12/07/2016 23:23:12 Dictated By: AYDEN TELLO MD [facility]
[2016-12-08] MEDS: MEROPENEM 500 MG in NS (IVPB) 100 ML IV SCH ×2 (00:27→05:23)
[2016-12-08 05:29] VITALS: BP 133/69
[2016-12-08] MEDS: RT-ALBUTEROL SULF 2.5 MG/3 ML PRE-MIX VIAL IH SCH ×2 (07:09→07:35)
[2016-12-08] MEDS ORDERED: methylPREDNISolone 125 MG (Solu-MEDROL) VIAL ONE (07:10)
[2016-12-08] MEDS ORDERED: FUROSEMIDE 40 MG/4 ML INJ (LASIX) ONE (07:10)
[2016-12-08] MEDS ORDERED: INFLUENZA TRIvalent 2017-2018 0.5 ML/45 MCG SYR IM ONE (07:15)
[2016-12-08] MEDS ORDERED: FUROSEMIDE 40 MG/4 ML INJ (LASIX) IVP NR (07:30)
[2016-12-08] MEDS ORDERED: methylPREDNISolone 125 MG (Solu-MEDROL) VIAL IV NR (07:30)
[2016-12-08 07:34] LABS: BASOPHILS % (AUTO) 0 % (0-10); EOSINOPHILS % (AUTO) 0 % (0-10); LYMPHOCYTES # (AUTO) 3.7 X 10^3 (1.0-4.0); LYMPHOCYTES % (AUTO) 17 % (12-44); MEAN CORPUSCULAR HEMOGLOBIN 28 PG (25-34); MEAN CORPUSCULAR HGB CONC 32 G/DL (32-36); MEAN CORPUSCULAR VOLUME 87 FL (80-99); MEAN PLATELET VOLUME 9.7 FL (7.4-10.4); MONOCYTES # (AUTO) 1.7 X 10^3 (0.0-1.0); MONOCYTES % (AUTO) 8 % (0-12); NEUTROPHILS # (AUTO) 15.7 X 10^3 (1.8-7.8); NEUTROPHILS % (AUTO) 74 % (42-75); PLATELET COUNT 803 10^3/uL (130-400); RED BLOOD COUNT 3.64 10^6/uL (4.35-5.85); RED CELL DISTRIBUTION WIDTH 19.1 % (10.0-14.5); WHITE BLOOD COUNT 21.1 10^3/uL (4.3-11.0)
[2016-12-08 07:36] VITALS: BP 146/78
[2016-12-08 07:37] LABS: ABG BASE EXCESS 4.1 MMOL/L (-2.5-2.5); ABG HCO3 29 MMOL/L (23-27); ABG OXYGEN SATURATION 86 % (94-100); ABG PCO2 54 MMHG (35-45); ABG PH 7.36 (7.37-7.43); ABG PO2 55 MMHG (79-93); ABG TCO2 30.9 MMOL/L (21.0-31.0)
[2016-12-08 07:40] LABS: ALLENS TEST YES-POS; PATIENT TEMP 98.2
[2016-12-08] MEDS ORDERED: RT-ALBUTEROL/IPRATROPIUM 3 ML (DUONEB) VIAL INH PRN (07:45)
--- NOTE | 2016-12-08 07:52 | Pulmonary Progress Note ---
Subjective Time Seen by Provider: 07:50 Subjective/Events-last exam Called to 2nd floor secondary to patient developing acute respiratory distress. Upon my arrival pt is on 100% oxygen via mask and has sp02 of 87% with accessory muscle use. Exam Exam Vital Signs Date Time Temp Pulse Resp B/P (MAP) Pulse Ox O2 Delivery O2 Flow Rate FiO2 12/08/16 07:36 82 36 95 60.00 12/08/16 05:29 99.0 71 18 133/69 98 Nasal Cannula 1.50 12/07/16 20:45 Nasal Cannula 2.00 12/07/16 18:53 97 Nasal Cannula 2.00 12/07/16 18:30 98.0 76 20 146/75 93 Nasal Cannula 1.50 12/07/16 16:30 Nasal Cannula 1.50 12/07/16 11:05 98.8 78 22 137/76 94 Nasal Cannula 1.50 General Appearance: Severe Distress HEENT: Normal ENT Inspection, Pharynx Normal Neck: Non Tender, Supple Respiratory: Accessory Muscle Use, Decreased Breath Sounds, Respiratory Distress, Wheezing Cardiovascular: Tachycardia Gastrointestinal: non tender, soft Neurologic/Psychiatric: Alert, Oriented x3 Skin: Normal Color, Warm/Dry, Cool Lymphatic: No Adenopathy Results Lab Laboratory Tests 12/08/16 07:27 Assessment/Plan Assessment/Plan Acute respiratory failure with hypoxia -Give 40mg of IV lasix z 1 -Solumedrol 125mg IV X 1 -stat CXR, labs, BiPAP 20/10 -Transfer to ICU for closer monitoring -SVNs s/p right hemicolectomy -pain control ileocolonic anastomotic fistula with abd wall. no abscess or obstruction Surgery is following Adenocarcinoma of right colon Ileus post op -Surgery following Malnutrition with hypoalbuminemia and third spacing Paroxysmal Afib per RN - cardiology consulted Atelectasis r/o PNA - Doubt pneumonia -IS -SVNs-- change to easy PAP y GI/DVT ppx -lovenox, SCDs, protonix 45min spent with patient and medical team stabilizing patient. I did let Dr. Centeno know of patients status and transfer to ICU. Labs and CXR pending. Clinical Quality Measures DVT/VTE Risk/Contraindication: Risk Factor Score Per Nursin RFS Level Per Nursing on Admit: 4+=Very High MONE GRIFFIN DO Dec 08, 2016 07:52
[2016-12-08 07:53] LABS: ALANINE AMINOTRANSFERASE 11 U/L (0-55); ALBUMIN 2.8 GM/DL (3.2-4.5); ANION GAP 10 MMOL/L (5-14); ASPARTATE AMINO TRANSFERASE 18 U/L (5-34); BILIRUBIN,TOTAL 0.2 MG/DL (0.1-1.0); BLOOD UREA NITROGEN 14 MG/DL (7-18); BUN/CREATININE RATIO 18; CALCIUM 8.2 MG/DL (8.5-10.1); CARBON DIOXIDE 27 MMOL/L (21-32); CHLORIDE 100 MMOL/L (98-107); CREATININE SERUM 0.78 MG/DL (0.60-1.30); GFR ESTIMATED > 60; GLUCOSE 155 MG/DL (70-105); MAGNESIUM 2.1 MG/DL (1.8-2.4); PHOSPHORUS 3.1 MG/DL (2.3-4.7); POTASSIUM 4.2 MMOL/L (3.6-5.0); SODIUM 137 MMOL/L (135-145); TOTAL PROTEIN 6.3 GM/DL (6.4-8.2)
[2016-12-08 07:59] LABS: ANISOCYTOSIS MODERATE; BAND NEUTROPHILS 0 %; BASOPHILS % (MANUAL) 0 %; EOSINOPHILS % (MANUAL) 1 %; HYPOCHROMASIA SLIGHT; LYMPHOCYTES % (MANUAL) 15 %; NEUTROPHILS % (MANUAL) 76 %; TROPONIN I < 0.30 NG/ML (<0.30)
[2016-12-08] MEDS ORDERED: RT-ALBUTEROL/IPRATROPIUM 3 ML (DUONEB) VIAL INH SCH (10:00)
--- NOTE | 2016-12-08 11:14 | PM&R Post Admission Assessment ---
Post Admission Physician Asses The preadmission screen agrees with the post admission assessment that the patient is a good candidate for inpatient rehabilitation at the time of admission yesterday.However early this AM the patient developed respiratory distress and Hotel Office Manager transferred patient to ICU for further evaluation and treatment. . Estimated Length of Stay: Patient currently on interrupted stay status Prognosis: Appears somewhat guarded at this point AYDEN TELLO MD Dec 08, 2016 11:13
[2016-12-08] MEDS ORDERED: MAGIC MOUTHWASH (ADULT) PO SCH ×4 (21:00)
[2016-12-10 11:45] VITALS: BP 126/82
--- NOTE | 2016-12-10 12:03 | Physical Therapy Daily Note ---
PT Daily Note-Current Subjective "I will need to take it slow." "I think I just pushed too hard last time." Pain Numeric Pain Scale: 0-No Pain Location: No Pain Reported Mental Status Patient Orientation: Person, Place, Time, Situation Attachments: Colostomy/Ileostomy, Oxygen (1l/min; insitu during and post treatment) Transfers Functional [place] Measure 0=Not Assessed/NA 4=Minimal Assistance 1=Total Assistance 5=Supervision or Setup 2=Maximal Assistance 6=Modified [place] 3=Moderate Assistance 7=Complete IndependenceIRFPAI Quality Coding Scale 6 Independent with activity with or without an assistive device 5 Patient requires set up or clean up by helper. Patient completes activity by themselves 4 Supervision or touching assist (CGA). [place] provide cues , steadying assist 3 The helper provides less than half the effort to complete the activity 2 The helper provides more than half the effort to complete the activity 1 Dependent. The helper does all the effort to complete an activity 7 Patient refused to complete or attempt activity 9 The patient did not perform the activity before the current illness or injury 88 Not attempted due to Medical conditions or safety concerns Transfers (B, C, W/C) (FIM): 3 Supine to/from Sit: 3 Sit to/from Stand: 4 Sit to Lying (QC): 3 (assist with both legs into bed) Sit to Stand (QC): 4 (CGA with skilled cues for hand placement. ) Chair/Gwn-dk-Lubdl Xfer(QC): 4 (CGA with use of FWW) Car Transfer (QC): 88 Pt is slow with transfers; needs some assist with bed mobility paired with skilled cues for sequencing and safety. Pt performed a toilet transfer withCGA and was able to perform byron care with CGA. Stood at the sink with wash her hands with CGA. Weight Bearing Right Lower Extremity: Right Weight Bearing/Tolerated Left Lower Extremity: Left Weight Bearing/Tolerated Gait Training Does the Patient Walk?: Yes Gait (FIM): 2 Distance (FIM): 1=up to 49 ft Distance: 30 ft x 3 with FWW with close CGA Gait Assistive Device: FWW slow but steady gait Treatments Functional transfers with bed mobility and sit to from stand; as well as gait in her room. Assessment Pt returned to ARU post an interrupted stay that sent her to ICU. She seems to be feeling better and reports medically she is improved. She presents with general functional weakness with need for assist with transfers, gait, bed mobility, balance and safety. she does indicate limited functional act tolerance and apprehension about "over doing it." Assured pt we will monitor and work within her tolerance. She is a good candidate for ARU to address functional strength, mobility, activity tolerance and prep for successful discharge home. She has had a medically complex acute, swingbed and acute rehab stay, but is motivated and has potential to make good gains. The goals set at evaluations remain the same and POC is unchanged at this time. PT Half-Way Goals Half-Way Goals PT Half-Way Goals Time Frame: Dec 25, 2016 Transfers (B,C,W/C) (FIM): 6 Sit to Lying (QC): 5 Lying-Sitting on Side/Bed(QC): 5 Sit to Stand (QC): 5 Rollin Roll Left to Right (QC): 5 Chair/Rgl-je-Rntcj Xfer(QC): 5 Car Transfer (QC): 5 Does the Patient Walk: Yes Gait (FIM): 6 Gait distance (FIM): 3=150 ft Distance: 300' Walk 10 feet (QC): 5 Walk 10ft-Uneven Surface(QC): 5 Walk 50ft with 2 Turns (QC): 5 Walk 150 ft (QC): 5 Gait Level of Assist: 6 Gait Assistive Device: FWW Stairs (FIM): 5 # of Steps: 12 1 Step (curb) (QC): 4 4 Steps (QC): 4 12 Steps (QC): 4 Stairs Level Of Assist: 5 Picking up an Object (QC): 5 PT Plan Problem List Problem List: Activity Tolerance, Functional Strength, Safety, Balance, Gait, Transfer, Bed Mobility Treatment/Plan Treatment Plan: Continue Plan of Care Treatment Plan: Bed Mobility, Education, Functional Activity Shari, Functional Strength, Group Therapy, Gait, Safety, Therapeutic Exercise, Transfers Treatment Duration: Dec 25, 2016 Frequency: At least 5 of 7 days/Wk (IRF) Estimated Hrs Per Day: 1.5 hours per day Patient and/or Family Agrees t: Yes Safety Risks/Education Patient Education: Gait Training, Transfer Techniques, Safety Issues Teaching Recipient: Patient Teaching Methods: Discussion Response to Teaching: Reinforcement Needed Discharge Recommendations Therapy D/C Recommendations: Physical Therapy Home Care Time/GCodes Time In: 1130 Time Out: 1155 Total Billed Treatment Time: 25 Total Billed Treatment visit FA 15 GT 10 RL ZEPEDA PT Dec 10, 2016 12:03
--- NOTE | 2016-12-10 12:51 | Occupational Ther Daily Note ---
OT Current Status-Daily Note Subjective Pt seen in room, up in recliner, just finished PT. Agreeable to OT. Pt declined a shower today, saying that she had gotten a good sponge bath this morning. She doesn't have clothes here at this time. Appearance Alert, cooperative Mental Status/Objective Functional [place] Measure 0=Not Assessed/NA 4=Minimal Assistance 1=Total Assistance 5=Supervision or Setup 2=Maximal Assistance 6=Modified [place] 3=Moderate Assistance 7=Complete [place] Attachments: Central Line, Colostomy/Ileostomy, Oxygen ADL-Treatment Pt needed to toilet (had gotten Lasix this morning). walked CGA, FWW to bathroom. On/off BSC over toilet with CGA, FWW, grab bars. Pt managed clothing and hygiene with CGA when standing, FWW. Pt provided with Depends due to urinary urgency, but she was able to retain urine until she was on BSC. Pt educ on managing O2 tubing but needed assistance today. Stood at sink to wash hands, brush hair, brush teeth, SBA, FWW. Pt educ on walker placement when at the sink. Walked back to recliner, CGA, FWW. When pt returned to chair, O2 sats were 77% but quickly returned to 96% on 1L O2 nc and pt required recovery period. Pt left up in recliner, O2 in place, all needs met. Functional [place] Measure 0=Not Assessed/NA 4=Minimal Assistance 1=Total Assistance 5=Supervision or Setup 2=Maximal Assistance 6=Modified [place] 3=Moderate Assistance 7=Complete IndependenceIRFPAI Quality Coding Scale 6 Independent with activity with or without an assistive device 5 Patient requires set up or clean up by helper. Patient completes activity by themselves 4 Supervision or touching assist (CGA). [place] provide cues , steadying assist 3 The helper provides less than half the effort to complete the activity 2 The helper provides more than half the effort to complete the activity 1 Dependent. The helper does all the effort to complete an activity 7 Patient refused to complete or attempt activity 9 The patient did not perform the activity before the current illness or injury 88 Not attempted due to Medical conditions or safety concerns Grooming (FIM): 5 Oral Hygiene (QC): 4 (SBA) Toileting (FIM): 4 Toilet/Commode Transfer (FIM): 4 Toilet Transfer (QC): 4 Education OT Patient Education: Modified ADL techniques, Progress toward Goal/Update tx plan, Purpose of tx/functional activities, Rehab process Teaching Recipient: Patient Teaching Methods: Discussion Response to Teaching: Verbalize Understanding OT Short Term Goals Short Term Goals Time Frame: Dec 11, 2016 Lower Body Dressing(FIM): 5 Toileting(FIM): 4 1=Demonstrate adherence to instructed precautions during ADL tasks. 2=Patient will verbalize/demonstrate understanding of assistive devices/ modifications for ADL. 3=Patient will improve strength/tolerance for activity to enable patient to perform ADL's. OT Electronic Coils Supervisor Goals Electronic Coils Supervisor Goals Time Frame: Dec 25, 2016 Eating (FIM): 6 Eating (QC): 6 Groomin Oral Hygiene (QC): 6 Bathing(FIM): 6 Shower/Bathe Self (QC): 6 Upper Body Dressing(FIM): 6 Upper Body Dressing (QC): 6 Lower Body Dressing(FIM): 6 Lower Body Dressing (QC): 6 On/Off Footwear (QC): 6 Toileting(FIM): 6 Toileting Hygiene (QC): 6 Toilet/Commode Transfer(FIM): 6 Toilet/Commode Transfer (QC): 6 Shower Transfer(FIM): 6 Additional Goals: 2-Verbalize Understanding, 3-ImproveStrength/Shari 1=Demonstrate adherence to instructed precautions during ADL tasks. 2=Patient will verbalize/demonstrate understanding of assistive devices/ modifications for ADL. 3=Patient will improve strength/tolerance for activity to enable patient to perform ADL's. OT Education/Plan Problem List/Assessment Pt was off the unit for two days for respiratory distress. She returned this morning and said she is ready to continue with therapy. We will continue with same treatment plan and goals. Discharge Recommendations Plan/Recommendations: Continue POC Treatment Plan/Plan of Care Patient would benefit from OT for education, treatment and training to promote independence in ADL's, mobility, safety and/or upper extremity function for ADL' s. Plan of Care: ADL Retraining, Functional Mobility, Group Exercise/Act as Ind ( educ, exercise, activ tolerance, funct activities, socialization), UE Funct Exercise/Act, UE Neuromus Re-Ed/Coord Treatment Duration: Dec 25, 2016 Frequency: At least 5 of 7 days/Wk (IRF) Estimated Hrs Per Day: 1.5 hours per day Agreement: Yes Rehab Potential: Good Time/GCodes Start Time: 11:55 Stop Time: 12:13 Total Time Billed (hr/min): 18 Billed Treatment Time visit, 18 minutes ADL AUSTEN PISANO OT Dec 10, 2016 12:51
--- NOTE | 2016-12-10 12:51 | Occupational Ther Daily Note ---
OT Current Status-Daily Note Subjective Pt seen for short period of time before group, to work on activity tolerance. pt needed to toilet and then wished to visit with her son. Mental Status/Objective Functional [place] Measure 0=Not Assessed/NA 4=Minimal Assistance 1=Total Assistance 5=Supervision or Setup 2=Maximal Assistance 6=Modified [place] 3=Moderate Assistance 7=Complete [place] ADL-Treatment Pt got up from recliner with skilled cues for hand placement for sit to stand. Walked CGA, FWW to bathroom and was able to manage clothing and get up/down from toilet with SBA (BSC over toilet). She walked CGA, FWW to sink and washed her hands with SBA, FWW, with skilled cues for walker placement. Pt returned to recliner and needed a brief recovery period before she was no longer SOA. O2 at 1L/min throughout, with skilled cues for managing O2 tubing. Pt left up in recliner, with her son, all needs met. Functional [place] Measure 0=Not Assessed/NA 4=Minimal Assistance 1=Total Assistance 5=Supervision or Setup 2=Maximal Assistance 6=Modified [place] 3=Moderate Assistance 7=Complete IndependenceIRFPAI Quality Coding Scale 6 Independent with activity with or without an assistive device 5 Patient requires set up or clean up by helper. Patient completes activity by themselves 4 Supervision or touching assist (CGA). [place] provide cues , steadying assist 3 The helper provides less than half the effort to complete the activity 2 The helper provides more than half the effort to complete the activity 1 Dependent. The helper does all the effort to complete an activity 7 Patient refused to complete or attempt activity 9 The patient did not perform the activity before the current illness or injury 88 Not attempted due to Medical conditions or safety concerns Education OT Patient Education: Purpose of tx/functional activities, Safety issues, Transfer techniques Teaching Recipient: Patient Teaching Methods: Discussion Response to Teaching: Verbalize Understanding, Reinforcement Needed OT Short Term Goals Short Term Goals Time Frame: Dec 11, 2016 Lower Body Dressing(FIM): 5 Toileting(FIM): 4 1=Demonstrate adherence to instructed precautions during ADL tasks. 2=Patient will verbalize/demonstrate understanding of assistive devices/ modifications for ADL. 3=Patient will improve strength/tolerance for activity to enable patient to perform ADL's. OT Mcc Goals Mcc Goals Time Frame: Dec 25, 2016 Eating (FIM): 6 Eating (QC): 6 Groomin Oral Hygiene (QC): 6 Bathing(FIM): 6 Shower/Bathe Self (QC): 6 Upper Body Dressing(FIM): 6 Upper Body Dressing (QC): 6 Lower Body Dressing(FIM): 6 Lower Body Dressing (QC): 6 On/Off Footwear (QC): 6 Toileting(FIM): 6 Toileting Hygiene (QC): 6 Toilet/Commode Transfer(FIM): 6 Toilet/Commode Transfer (QC): 6 Shower Transfer(FIM): 6 Additional Goals: 2-Verbalize Understanding, 3-ImproveStrength/Shari 1=Demonstrate adherence to instructed precautions during ADL tasks. 2=Patient will verbalize/demonstrate understanding of assistive devices/ modifications for ADL. 3=Patient will improve strength/tolerance for activity to enable patient to perform ADL's. OT Education/Plan Problem List/Assessment Pt would benefit from skilled OT to increase her independence in basic self care to allow her to safely return to her home and live independently and to decrease caregiver burden Discharge Recommendations Plan/Recommendations: Continue POC Treatment Plan/Plan of Care Patient would benefit from OT for education, treatment and training to promote independence in ADL's, mobility, safety and/or upper extremity function for ADL' s. Plan of Care: ADL Retraining, Functional Mobility, Group Exercise/Act as Ind ( educ, exercise, activ tolerance, funct activities, socialization), UE Funct Exercise/Act, UE Neuromus Re-Ed/Coord Treatment Duration: Dec 25, 2016 Frequency: At least 5 of 7 days/Wk (IRF) Estimated Hrs Per Day: 1.5 hours per day Agreement: Yes Rehab Potential: Good Time/GCodes Start Time: 12:34 Stop Time: 12:45 Total Time Billed (hr/min): 11 Billed Treatment Time visit, 11 minutes ADL AUSTEN PISANO OT Dec 10, 2016 12:51
[2016-12-10] MEDS ORDERED: RT-ALBUTEROL/IPRATROPIUM 3 ML (DUONEB) VIAL INH PRN (12:58)
[2016-12-10] MEDS ORDERED: ACETAMINOPHEN 500 MG TAB (TYLENOL) PO PRN (12:58)
[2016-12-10] MEDS ORDERED: diphenhydrAMINE 25 MG TAB (BENADRYL) PO PRN (12:58)
[2016-12-10] MEDS: RT-ALBUTEROL/IPRATROPIUM 3 ML (DUONEB) VIAL INH SCH ×3 (14:00→22:00)
--- NOTE | 2016-12-10 14:27 | PM & R (SOAP) Progress Note ---
Subjective Time Seen by Provider: 12:00 Subjective/Events-last exam Patient was seen in her room this noonhour Patient returns from interrupted stay for treatment of resp failure due to presumed pneumonia Patient on IV antibiotics for treatment.Discussed case with RN,Dr Ingram note reviewed Objective Exam Last Set of Vital Signs Vital Signs Date Time Temp Pulse Resp B/P (MAP) Pulse Ox O2 Delivery O2 Flow Rate FiO2 12/10/16 11:45 100.2 76 22 126/82 96 Nasal Cannula 1.00 Capillary Refill : Less Than 3 Seconds General: Alert, Oriented X3, Cooperative, No Acute Distress HEENT: Atraumatic, PERRLA, EOMI, Mucous Memb Moist/[place] Neck: Supple, No JVD Lungs: Other (decreased breath sounds at base) Heart: Regular Rate Abdomen: Normal Bowel Sounds, Soft, No Tenderness, 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) Extremities: Other (trace pitting edema at ankles improved from prior assessment) Neuro: Other (generalized weakness) Results Lab Laboratory Tests 12/08/16 07:21: Blood Gas Puncture Site LT RAD, Blood Gas Patient Temperature 98.2, Arterial Blood pH 7.36L, Arterial Blood Partial Pressure CO2 54H, Arterial Blood Partial Pressure O2 55L, Arterial Blood HCO3 29H, Arterial Blood Total CO2 30.9, Arterial Blood Oxygen Saturation 86L, Arterial Blood Base Excess 4.1H, [place] Test YES-POS, Blood Gas Ventilator Setting NO, Blood Gas Inspired Oxygen 15 L 12/08/16 07:27: White Blood Count 21.1H, Red Blood Count 3.64L, Hemoglobin 10.0L, Hematocrit 32L , Mean Corpuscular Volume 87, Mean Corpuscular Hemoglobin 28, Mean Corpuscular Hemoglobin Concent 32, Red Cell Distribution Width 19.1H, Platelet Count 803H, Mean Platelet Volume 9.7, Neutrophils (%) (Auto) 74, Lymphocytes (%) (Auto) 17, Monocytes (%) (Auto) 8, Eosinophils (%) (Auto) 0, Basophils (%) (Auto) 0, Neutrophils # (Auto) 15.7H, Lymphocytes # (Auto) 3.7, Monocytes # (Auto) 1.7H, Eosinophils # (Auto) 0.0, Basophils # (Auto) 0.0, Neutrophils % (Manual) 76, Lymphocytes % (Manual) 15, Monocytes % (Manual) 8, Eosinophils % (Manual) 1, Basophils % (Manual) 0, Band Neutrophils 0, Hypochromasia SLIGHT, Anisocytosis MODERATE, Sodium Level 137, Potassium Level 4.2, Chloride Level 100, Carbon Dioxide Level 27, Anion Gap 10, Blood Urea Nitrogen 14, Creatinine 0.78, Estimat Glomerular Filtration Rate > 60, BUN/Creatinine Ratio 18, Glucose Level 155H, Calcium Level 8.2L, Phosphorus Level 3.1, Magnesium Level 2.1, Total Bilirubin 0.2, Aspartate Amino Transf (AST/SGOT) 18, Alanine Aminotransferase ( ALT/SGPT) 11, Alkaline Phosphatase 63, Troponin I < 0.30, B-Type Natriuretic Peptide 2621.8H, Total Protein 6.3L, Albumin 2.8L Assessment/Plan Assessment COPD myopathy Resp failure due to Presumed bilateral basilar pneumonia on IV antibiotcs 02 dependency Plan PT/OT resumes F/U with DR Cardoso and Hospitalist service as per their schedule AYDEN TELLO MD Dec 10, 2016 14:27
--- NOTE | 2016-12-10 14:41 | Therapy Group Daily Note ---
Therapy Daily Group Note Other/Notes Pt was brought to group therapy in wheelchair. Pt participated in group introduction (name, where patient is from, first car). Pt participated in activity for education on common indoor signs and home safety awareness. Pt engaged in conversations and responded appropriately in peer interactions. Pt participated in seated LE and UE exercises and demonstrated understanding and correct form. Pt is sitting in wheelchair after group therapy, has OT next. Start Time: 12:59 Stop Time: 14:11 Total Billed Treatment Time: 72 Total Billed Treatment 1- GRP RUTH MEDINA BUTTER MELTER Dec 10, 2016 14:41
--- NOTE | 2016-12-10 14:42 | Individualized Plan of Care ---
Individualized Plan of Care Rehab Nursing IPOC Order Admission Date Dec 07, 2016 at 10:45 Current Orders Orders Admission-Acute Rehab Unit (12/07/16 10:23) Pt Evaluate/Treat Request (12/07/16 10:23) Request Ot Evaluate & Treat (12/07/16 10:23) Request For Cognitive Services (12/07/16 10:23) Patient Visit (12/07/16 ) Speech Sound Lang Comp (12/07/16 ) Clear Liquid (12/07/16 Lunch) Transfer - Room Transfer (12/07/16 12:17) Patient Visit (12/07/16 ) Pt Eval Moderate Complexity (12/07/16 ) Functional Activities, Ea 15 (12/07/16 ) Exercise Therap, Ea 15 Min (12/07/16 ) Enoxaparin Injection (Lovenox Injection) (12/07/16 16:45) Diphenhydramine Tablet (Benadryl Tablet) (12/07/16 16:45) Senna S Tablet (Senokot S Tablet) (12/07/16 16:45) Metoprolol Succinate (Xl) Tab (Toprol Xl (12/07/16 16:45) Acetaminophen Tablet (Tylenol Tablet) (12/07/16 16:45) Albuterol Pre-Mix Nebs (Rt) (Proventil P (12/07/16 16:45) Meropenem (Merrem 500 Mg) (12/07/16 16:45) Nystatin Oral Suspension (Mycostatin O (12/07/16 16:46) Miconazole 2% Powder (Desenex Af 2% Powd (12/07/16 16:46) Ambulate TID (12/07/16 18:07) Sequential Compression Device 08,20 (12/07/16 18:07) Dvt/Vte Risk - Notifiy Physici (12/07/16 18:07) Ambulate TID (12/07/16 18:07) Incentive Spirometry (Nursing) Q2H (12/07/16 18:07) Initiate Admission Nursing Pro .admission (12/07/16 18:07) Notify Physician: Vital Signs (12/07/16 18:07) General/Regular (12/07/16 Dinner) Influenza Vac Order Indicated (12/07/16 20:55) Influenza Trivalent [id number] (Afluria (12/08/16 07:15) Furosemide Injection (Lasix Injection) (12/08/16 07:10) Methylprednisolone Sod Succ (Solu-Medrol (12/08/16 07:10) Arterial Blood Gas (12/08/16 07:21) Cpoe Transfer Order Process (12/08/16 07:24) Patient Intra Tranfer .on admission from transferring unit (12/08/16 07:24) BNP (12/08/16 07:26) Comprehensive Metabolic Panel (12/08/16 07:26) Cbc With Automated Diff (12/08/16 07:26) Magnesium (12/08/16 07:26) Phosphorus (12/08/16 07:26) Troponin I (12/08/16 07:26) Furosemide Injection (Lasix Injection) (12/08/16 07:30) Methylprednisolone Sod Succ (Solu-Medrol (12/08/16 07:30) Manual Differential (12/08/16 07:27) Albuterol/Ipra Inhalation Soln (Duoneb I (12/08/16 10:00) Albuterol/Ipra Inhalation Soln (Duoneb I (12/08/16 07:45) Svn Sm Volume Nebulizer Rt-Rfs (12/08/16 07:39) Svn Sm Volume Nebulizer Rt-Rfs (12/08/16 07:39) Transfer - Room Transfer (12/08/16 07:42) Discharge (12/08/16 07:30) Nystatin Oral Suspension (Mycostatin O (12/08/16 21:00) Transfer - Room Transfer (12/10/16 11:58) Albuterol/Ipra Inhalation Soln (Duoneb I (12/10/16 12:58) Albuterol/Ipra Inhalation Soln (Duoneb I (12/10/16 12:58) Enoxaparin Injection (Lovenox Injection) (12/10/16 12:58) Diphenhydramine Tablet (Benadryl Tablet) (12/10/16 12:58) Senna S Tablet (Senokot S Tablet) (12/10/16 12:58) Metoprolol Succinate (Xl) Tab (Toprol Xl (12/10/16 12:58) Acetaminophen Tablet (Tylenol Tablet) (12/10/16 12:58) Nystatin Oral Suspension (Mycostatin O (12/10/16 12:58) Miconazole 2% Powder (Desenex Af 2% Powd (12/10/16 12:58) Meropenem (Merrem 500 Mg) (12/10/16 12:58) Potassium Chloride (Tablet) (Klor Con Ta (12/10/16 12:58) Furosemide Injection (Lasix Injection) (12/10/16 12:58) Patient Visit (12/10/16 ) Functional Activities, Ea 15 (12/10/16 ) Gait Training, Ea 15 Min (12/10/16 ) Patient Visit (12/10/16 ) Therapeutic, Group (12/10/16 ) Other Nursing Orders: ileocolonic fistula management and monitor for urinary retention Intensity of Therapy to be met Patient to be seen: 15 hrs over 7 cons. days PT IPOC Problem List: Activity Tolerance, Functional Strength, Safety, Balance, Gait, Transfer, Bed Mobility Treatment Plan: Continue Plan of Care Bed Mobility, Education, Functional Activity Shari, Functional Strength, Group Therapy, Gait, Safety, Therapeutic Exercise, Transfers Treatment Duration: Dec 25, 2016 Frequency: At least 5 of 7 days/Wk (IRF) Estimated Hrs Per Day: 1.5 hours per day OT IPOC Problems: Decreased Activ Tolerance, Decreased UE Strength, Dependent Transfers , Impaired Funct Balance, Impaired Self-Care Skills OT Treatment, Training and Edu: Yes OT Problems Pt was off the unit for two days for respiratory distress. She returned this morning and said she is ready to continue with therapy. We will continue with same treatment plan and goals. Plan of Care: ADL Retraining, Functional Mobility, Group Exercise/Act as Ind ( educ, exercise, activ tolerance, funct activities, socialization), UE Funct Exercise/Act, UE Neuromus Re-Ed/Coord Treatment Duration: Dec 25, 2016 Frequency: At least 5 of 7 days/Wk (IRF) Estimated Hrs Per Day: 1.[address] IPOC Speech Therapy Treatment Plan: Discontinue ST Treatment Duration: Dec 10, 2016 Frequency: Modified Program (IRF) Estimated Hrs Per Day: Other Aquaculture Farmer/Case Mgmt Aquaculture Farmer/Case Managemen: Discharge Planning, Patient/Family Counseling Physician IPOC Medical Issues being managed closely and that require the 24 hour availability of a physician:ongoing treatment of resp insufficiency on 02 byN/C Pneumonia with bilateral basilar infiltrates ileocolonic fistula care s/p hemicolectomy for colon ca DR Gaston postop anemia Edema Medical Issues: Bowel/Bladder Function, DVT Prophylaxis, Falls Precautions, Fluid/Electrolyte/Nutrition Balance, Infection Protection, Wound Care, Other ( List) (as per above) Brief Synthesis of Preadmission Screen, Post-Admission Evaluation, and Therapy Evaluations:81 yo female who had been independent prior to hemicolectomy for colon ca with postop complications of ileocolonic fistula and pneumonia currently on IV antibiotics and supplemental 02 associated with a decline in functional [place].Has been on Interrupted stay since Wednesday due to resp failure requiring admission to ICU.Now returns for continuation of Rehab program Patient placed on 19/09 therapy schedule due to respiratory concerns.Has a supportive son who presents to unit with her Patient being followed by Hospitalist and Pulm service Medical Prognosis: good Anticipated Length of Stay: 10-20-17 Rehab Goals Modified Independent for adl and mobility skills with improved exercise tolerance for her normal routine Anticipated discharge destinat: Home with [facility] and her son AYDEN TELLO MD Dec 10, 2016 14:41
--- NOTE | 2016-12-10 15:08 | Occupational Ther Daily Note ---
OT Current Status-Daily Note Subjective Pt seen in room, up in recliner, agreeable to OT. No pain mentioned. Appearance Alert, cooperative Mental Status/Objective Functional [place] Measure 0=Not Assessed/NA 4=Minimal Assistance 1=Total Assistance 5=Supervision or Setup 2=Maximal Assistance 6=Modified [place] 3=Moderate Assistance 7=Complete [place] ADL-Treatment Functional [place] Measure 0=Not Assessed/NA 4=Minimal Assistance 1=Total Assistance 5=Supervision or Setup 2=Maximal Assistance 6=Modified [place] 3=Moderate Assistance 7=Complete IndependenceIRFPAI Quality Coding Scale 6 Independent with activity with or without an assistive device 5 Patient requires set up or clean up by helper. Patient completes activity by themselves 4 Supervision or touching assist (CGA). [place] provide cues , steadying assist 3 The helper provides less than half the effort to complete the activity 2 The helper provides more than half the effort to complete the activity 1 Dependent. The helper does all the effort to complete an activity 7 Patient refused to complete or attempt activity 9 The patient did not perform the activity before the current illness or injury 88 Not attempted due to Medical conditions or safety concerns Other Treatment Pt got up from recliner with no cues needed for hand position. Walked slowly, with SBA, FWW, to gym, with OT managing O2 tubing and portable tank. Pt did bilat UE tabletop activities (arc activity and nuts/bolts) with no additional resistance on arms to strengthen them to help with transfers and to increase activity tolerance. She needed brief recovery periods throughout and practiced pacing herself, to conserve energy. O2 at 1L/min nc throughout. 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 Education OT Patient Education: Energy conservation, Exercise program, Progress toward Goal/Update tx plan, Purpose of tx/functional activities Teaching Recipient: Patient Teaching Methods: Discussion Response to Teaching: Verbalize Understanding, Return Demonstration OT Short Term Goals Short Term Goals Time Frame: Dec 11, 2016 Lower Body Dressing(FIM): 5 Toileting(FIM): 4 1=Demonstrate adherence to instructed precautions during ADL tasks. 2=Patient will verbalize/demonstrate understanding of assistive devices/ modifications for ADL. 3=Patient will improve strength/tolerance for activity to enable patient to perform ADL's. OT Librarian Assistant Goals Correction Goals Time Frame: Dec 25, 2016 Eating (FIM): 6 Eating (QC): 6 Groomin Oral Hygiene (QC): 6 Bathing(FIM): 6 Shower/Bathe Self (QC): 6 Upper Body Dressing(FIM): 6 Upper Body Dressing (QC): 6 Lower Body Dressing(FIM): 6 Lower Body Dressing (QC): 6 On/Off Footwear (QC): 6 Toileting(FIM): 6 Toileting Hygiene (QC): 6 Toilet/Commode Transfer(FIM): 6 Toilet/Commode Transfer (QC): 6 Shower Transfer(FIM): 6 Additional Goals: 2-Verbalize Understanding, 3-ImproveStrength/Shari 1=Demonstrate adherence to instructed precautions during ADL tasks. 2=Patient will verbalize/demonstrate understanding of assistive devices/ modifications for ADL. 3=Patient will improve strength/tolerance for activity to enable patient to perform ADL's. OT Education/Plan Problem List/Assessment Pt was off the unit for two days for respiratory distress. She returned this morning and said she is ready to continue with therapy. We will continue with same treatment plan and goals. Discharge Recommendations Plan/Recommendations: Continue POC Treatment Plan/Plan of Care Patient would benefit from OT for education, treatment and training to promote independence in ADL's, mobility, safety and/or upper extremity function for ADL' s. Plan of Care: ADL Retraining, Functional Mobility, Group Exercise/Act as Ind ( educ, exercise, activ tolerance, funct activities, socialization), UE Funct Exercise/Act, UE Neuromus Re-Ed/Coord Treatment Duration: Dec 25, 2016 Frequency: At least 5 of 7 days/Wk (IRF) Estimated Hrs Per Day: 1.5 hours per day Agreement: Yes Rehab Potential: Good Time/GCodes Start Time: 14:14 Stop Time: 14:40 Total Time Billed (hr/min): 26 Billed Treatment Time visit, 26 minutes exercise AUSTEN PISANO OT Dec 10, 2016 15:08
--- NOTE | 2016-12-10 15:15 | Physical Therapy Daily Note ---
PT Daily Note-Current Subjective Agreeable to PT. Reports she is feeling better. Smiles, pleasant, visits. Pain Numeric Pain Scale: 0-No Pain Location: No Pain Reported Mental Status Patient Orientation: Person, Place, Time, Situation Transfers Functional [place] Measure 0=Not Assessed/NA 4=Minimal Assistance 1=Total Assistance 5=Supervision or Setup 2=Maximal Assistance 6=Modified [place] 3=Moderate Assistance 7=Complete IndependenceIRFPAI Quality Coding Scale 6 Independent with activity with or without an assistive device 5 Patient requires set up or clean up by helper. Patient completes activity by themselves 4 Supervision or touching assist (CGA). [place] provide cues , steadying assist 3 The helper provides less than half the effort to complete the activity 2 The helper provides more than half the effort to complete the activity 1 Dependent. The helper does all the effort to complete an activity 7 Patient refused to complete or attempt activity 9 The patient did not perform the activity before the current illness or injury 88 Not attempted due to Medical conditions or safety concerns Worked on sit to from stand transfer with FWW with skilled cues for sequencing and safety. SPT x 2 to from bed and sit to from supine with mod assist. Min- CGa with sit to stand tranfere. Toilet transfer x 2 with CGA and SBA with pericare. CGA as pt stood at the sink to wash her hands x 2 different times ( multiple urination due to dieuretic). Weight Bearing Right Lower Extremity: Right Weight Bearing/Tolerated Left Lower Extremity: Left Weight Bearing/Tolerated Treatments Seated B LE ther ex x 15 x 2 reps for AP, LAQ, hip flexion and hip abduction for functional strength and muscle activity to assist to reduce edema. Assessment Current Status: Good Progress Seems to be feeling better this afternoon. Did well with functional transfers and mobility. PT Wood Grinder Goals Wood Grinder Goals PT [facility] Goals Time Frame: Dec 25, 2016 Transfers (B,C,W/C) (FIM): 6 Sit to Lying (QC): 5 Lying-Sitting on Side/Bed(QC): 5 Sit to Stand (QC): 5 Rollin Roll Left to Right (QC): 5 Chair/Izm-ee-Atrcy Xfer(QC): 5 Car Transfer (QC): 5 Does the Patient Walk: Yes Gait (FIM): 6 Gait distance (FIM): 3=150 ft Distance: 300' Walk 10 feet (QC): 5 Walk 10ft-Uneven Surface(QC): 5 Walk 50ft with 2 Turns (QC): 5 Walk 150 ft (QC): 5 Gait Level of Assist: 6 Gait Assistive Device: FWW Stairs (FIM): 5 # of Steps: 12 1 Step (curb) (QC): 4 4 Steps (QC): 4 12 Steps (QC): 4 Stairs Level Of Assist: 5 Picking up an Object (QC): 5 PT Plan Problem List Problem List: Activity Tolerance, Functional Strength Treatment/Plan Treatment Plan: Continue Plan of Care Treatment Plan: Bed Mobility, Education, Functional Activity Shari, Functional Strength, Group Therapy, Gait, Safety, Therapeutic Exercise, Transfers Treatment Duration: Dec 25, 2016 Frequency: At least 5 of 7 days/Wk (IRF) Estimated Hrs Per Day: 1.5 hours per day Patient and/or Family Agrees t: Yes Safety Risks/Education Patient Education: Safety Issues Teaching Recipient: Patient Teaching Methods: Demonstration, Discussion Response to Teaching: Reinforcement Needed Time/GCodes Time In: 1440 Time Out: 1525 Total Billed Treatment Time: 45 Total Billed Treatment visit EX 20 FA 25 RL ZEPEDA PT Dec 10, 2016 15:15
[2016-12-10] MEDS: MEROPENEM 500 MG in NS (IVPB) 100 ML IV SCH ×2 (15:25→21:23)
--- NOTE | 2016-12-10 16:54 | Progress Note (SOAP) ---
Subjective Date Seen by Provider: Dec 10, 2016 Time Seen by Provider: 15:00 Subjective/Events-last exam doing better. tolerating diet with high output fistula. breathing well. no wheezing. Objective Exam Vital Signs Date Time Temp Pulse Resp B/P (MAP) Pulse Ox O2 Delivery O2 Flow Rate FiO2 12/10/16 12:35 99.8 12/10/16 11:45 100.2 76 22 126/82 96 Nasal Cannula 1.00 Capillary Refill : Less Than 3 Seconds General Appearance: No Apparent Distress HEENT: PERRL/EOMI Neck: Full Range of Motion, Normal Inspection Respiratory: Chest Non Tender, Lungs Clear Cardiovascular: Regular Rate, Rhythm Gastrointestinal: normal bowel sounds, non tender, soft Extremity: Normal Capillary Refill Neurologic/Psychiatric: Alert, Oriented x3 Skin: Normal Color Lymphatic: No Adenopathy Assessment/Plan Assessment/Plan Assess & Plan/Chief 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 encourage PO for now due to poor nutritional status small protein reserve. will deal with fistula later after completely healed and nutritional status more appropriate. Clinical Quality Measures DVT/VTE Risk/Contraindication: Risk Factor Score Per Nursin RFS Level Per Nursing on Admit: 4+=Very High STEPHANY ALY MD Dec 10, 2016 4:54 pm
[2016-12-10 18:30] VITALS: BP 130/72
[2016-12-10] MEDS: ENOXAPARIN 30 MG/0.3 ML (LOVENOX) SYR SC SCH (21:12)
[2016-12-10] MEDS: meTOprolol SUCCINATE 100 MG (TOPROL XL) TAB PO SCH (21:13)
[2016-12-10] MEDS: MAGIC MOUTHWASH (ADULT) PO SCH ×4 (21:16)
[2016-12-10] MEDS: MICONAZOLE 2% POWDER (DESENEX AF) 90 GM TOP SCH (21:17)
[2016-12-11] MEDS: RT-ALBUTEROL/IPRATROPIUM 3 ML (DUONEB) VIAL INH SCH ×6 (02:00→20:05)
[2016-12-11 05:17] VITALS: BP 139/69
[2016-12-11] MEDS: MEROPENEM 500 MG in NS (IVPB) 100 ML IV SCH ×3 (06:22→21:39)
[2016-12-11] MEDS: KCL 10 MEQ TAB (MICRO K) PO SCH (06:22)
[2016-12-11 07:57] VITALS: BP 123/61
[2016-12-11] MEDS: SENNA W/DOCUSATE (SENOKOT S) TABLET PO SCH (08:13)
[2016-12-11] MEDS: meTOprolol SUCCINATE 100 MG (TOPROL XL) TAB PO SCH ×2 (08:14→21:43)
[2016-12-11] MEDS: ENOXAPARIN 30 MG/0.3 ML (LOVENOX) SYR SC SCH ×2 (08:15→21:43)
--- NOTE | 2016-12-11 08:59 | Progress Note-Cardiology ---
Cardiology SOAP Progress Note Subjective: Up ambulating with PT. States she feels better this morning. Feels breathing has improved. No c/o CP, palpitations, syncope or near syncope. Feels LE edema has improved. C/O generalized weakness. Objective: I&O/Vital Signs Vital Sign - Last 12Hours 12/11/16 12/11/16 12/11/16 12/11/16 05:17 07:24 07:57 08:40 Temp 100.6 98.6 Pulse 74 78 Resp 14 18 B/P (MAP) 139/69 123/61 Pulse Ox 97 97 95 O2 Delivery Nasal Cannula Nasal Cannula Room Air Nasal Cannula O2 Flow Rate 1.00 2.00 1.00 12/11/16 12/11/16 12/11/16 10:07 10:35 11:11 Pulse Ox 96 97 95 O2 Delivery Room Air Room Air Room Air Weight (Pounds): 193 Weight (Ounces): 7.0 Weight (Calculated Kilograms): 87.496673 Constitutional: AAO x 3 Respiratory: No accessory muscle use, other (diminished bases bilat) Cardiovascular: regular rate-rhythm, S1 and S2, systolic murmur Gastrointestional: round, other (ileostomy) Extremities: significant edema (mod bilat LE edema - gradually improving) Neurologic/Psychiatric: grossly intact Skin: No ulcerations, No rash on exposed areas A/P: Assessment: Gen anasarca; probably related to hypoproteinemia and/or diastolic CHF and/or post-op volume overload - slowly continues to improve Echo of 12/01/16: LVEF 60-65%, PASP 40-45 mmHg PAF documented during hosp of early Dec 2014. Currently maintaining sinus rhythm Previously was on Eliquis for stroke prevention - does not appear ready for resumption due to significantly low Hgb, despite blood transfusions Post right hemicolectomy for adenocarcinoma of the colon per Dr. Gaston Small anastomotic leak with air in the adjacent mesenteric fat and along the adjacent fistula tract to the skin in the right lower quadrant per CT of 12-07-16 Elevated BMI of approx 43 No evidence of ischemia or infarction on MPI of 12/11/14; LVEF was 74% H/o hypertension Anemia - transfusion per medical/surgical services; continues to decline Thrombocytosis - gradually improving Leukocytosis - management per medical services Plan: Complex management due to multiple comorbidities Continue diuretics Not ready for Eliquis (see above) Continue to monitor rhythm (seems to be maintaining NSR) Leukocytosis - management per medical and surgical services Replace electrolytes Physician Assessment Physician Assessment Has gen malaise. Shortness of breath is better. No cp Lungs: fair bilat air entry; diminished at the bases Cor: reg Ext: no c/c; mild bilat leg edema A&R * As documented in our note above that I updated (italics) and as noted below * Monitor labs * Dr Streeter covering Card Svce over the weekend. Please call him if cardiac support is needed ARIS TRINIDAD STRUCTURAL ANALYST Dec 11, 2016 08:59 EMILY HILTON MD FACP [facility] Dec 11, 2016 14:48
--- NOTE | 2016-12-11 09:32 | Pulmonary Progress Note ---
Subjective Time Seen by Provider: 09:31 Subjective/Events-last exam No complications noted. pt is feeling much improved. Exam Exam Vital Signs Date Time Temp Pulse Resp B/P (MAP) Pulse Ox O2 Delivery O2 Flow Rate FiO2 12/11/16 08:40 Nasal Cannula 1.00 12/11/16 07:57 98.6 78 18 123/61 95 Room Air 12/11/16 07:24 97 Nasal Cannula 2.00 12/11/16 05:17 100.6 74 14 139/69 97 Nasal Cannula 1.00 12/10/16 22:02 97 Nasal Cannula 2.00 12/10/16 20:45 Nasal Cannula 1.00 12/10/16 18:30 99.8 73 14 130/72 98 12/10/16 18:25 98 Nasal Cannula 2.00 12/10/16 12:35 99.8 12/10/16 12:10 Nasal Cannula 1.00 12/10/16 11:45 100.2 76 22 126/82 96 Nasal Cannula 1.00 I & O 12/12/16 07:00 Intake Total 100 ml Balance 100 ml General Appearance: No Apparent Distress HEENT: PERRL/EOMI Neck: Full Range of Motion, Normal Inspection Respiratory: Chest Non Tender, Lungs Clear Cardiovascular: Regular Rate, Rhythm Gastrointestinal: normal bowel sounds, non tender, soft Extremity: Normal Capillary Refill Neurologic/Psychiatric: Alert, Oriented x3 Skin: Normal Color Lymphatic: No Adenopathy Assessment/Plan Assessment/Plan Acute respiratory failure with hypoxia -IV lasix -SVNs s/p right hemicolectomy -pain control ileocolonic anastomotic fistula with abd wall. no abscess or obstruction Surgery is following Adenocarcinoma of right colon Ileus post op -Surgery following Malnutrition with hypoalbuminemia and third spacing -Ensure TID Paroxysmal Afib per RN - cardiology consulted Atelectasis r/o PNA - Doubt pneumonia -IS -SVNs-- change to easy PAP GI/DVT ppx -lovenox, SCDs, protonix 232 Clinical Quality Measures DVT/VTE Risk/Contraindication: Risk Factor Score Per Nursin RFS Level Per Nursing on Admit: 4+=Very High OMNE GRIFFIN DO Dec 11, 2016 09:32
--- NOTE | 2016-12-11 09:40 | PM & R (SOAP) Progress Note ---
Subjective Time Seen by Provider: 08:15 Subjective/Events-last exam Patient was seen in her room this AM Patient CGA to min assist for transfers Exercise tolerance much better Patient eupneic at rest. Objective Exam Last Set of Vital Signs Vital Signs Date Time Temp Pulse Resp B/P (MAP) Pulse Ox O2 Delivery O2 Flow Rate FiO2 12/11/16 08:40 Nasal Cannula 1.00 12/11/16 07:57 98.6 78 18 123/61 95 Capillary Refill : Less Than 3 Seconds I&O Intake and Output 12/12/16 00:00 Intake Total 300 ml Output Total 75 ml Balance 225 ml Intake Oral 200 ml IV Total 100 ml Output Stool Total 75 ml # Voids 3 General: Alert, Oriented X3, Cooperative, No Acute Distress HEENT: Atraumatic, PERRLA, EOMI, Mucous Memb Moist/[place] Neck: Supple, No JVD Lungs: Other (decreased breath sounds at base) Heart: Regular Rate Abdomen: Normal Bowel Sounds, Soft, No Tenderness, 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) Extremities: Other (trace pitting edema at ankles improved from prior assessment) Neuro: Other (generalized weakness) Assessment/Plan Assessment COPD myopathy Resp failure due to Presumed bilateral basilar pneumonia on IV antibiotcs 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
--- NOTE | 2016-12-11 09:41 | Physical Therapy Daily Note ---
PT Daily Note-Current Subjective Patient agrees to PT. Education with patient on importance of mobility and strengthening to ensure safe return to home. Pain Numeric Pain Scale: 0-No Pain Location: No Pain Reported Mental Status Patient Orientation: Normal For Age Transfers Functional [place] Measure 0=Not Assessed/NA 4=Minimal Assistance 1=Total Assistance 5=Supervision or Setup 2=Maximal Assistance 6=Modified [place] 3=Moderate Assistance 7=Complete IndependenceIRFPAI Quality Coding Scale 6 Independent with activity with or without an assistive device 5 Patient requires set up or clean up by helper. Patient completes activity by themselves 4 Supervision or touching assist (CGA). [place] provide cues , steadying assist 3 The helper provides less than half the effort to complete the activity 2 The helper provides more than half the effort to complete the activity 1 Dependent. The helper does all the effort to complete an activity 7 Patient refused to complete or attempt activity 9 The patient did not perform the activity before the current illness or injury 88 Not attempted due to Medical conditions or safety concerns Transfers (B, C, W/C) (FIM): 5 Scootin Sit to/from Stand: 5 Sit to Stand (QC): 4 Weight Bearing Right Lower Extremity: Right Weight Bearing/Tolerated Left Lower Extremity: Left Weight Bearing/Tolerated Gait Training Does the Patient Walk?: Yes Gait (FIM): 5 Distance (FIM): 3=150 ft Distance: 150' x 2; 200' x 2 Walk 10 feet (QC): 4 Walk 50 ft with 2 Turns(QC): 4 Walk 150 ft (QC): 4 Gait Level of Assist: 5 Gait Persons Needed: 1 Gait Assistive Device: FWW slow/steady/frequent standing and sitting recovery periods due to increase SOA with SAO2 97% RA Exercises Supine Ex: Ankle pumps, Quad Set Supine Reps: 20 (x 2 sets in recliner) Seated Therapy Exercises: Ankle pumps, Long arc quads, Hip flexion Seated Reps: 25 (x 2 sets in recliner with recovery periods due to SOA) Assessment Patient continues to be limited due to fatigue and requiring time to complete all functional tasks. PT to increase activity as tolerated by patient. PT Library Clerical Assistant Goals Library Clerical Assistant Goals PT Long-Term Goals Time Frame: Dec 25, 2016 Transfers (B,C,W/C) (FIM): 6 Sit to Lying (QC): 5 Lying-Sitting on Side/Bed(QC): 5 Sit to Stand (QC): 5 Rollin Roll Left to Right (QC): 5 Chair/Ixx-wj-Qithq Xfer(QC): 5 Car Transfer (QC): 5 Does the Patient Walk: Yes Gait (FIM): 6 Gait distance (FIM): 3=150 ft Distance: 300' Walk 10 feet (QC): 5 Walk 10ft-Uneven Surface(QC): 5 Walk 50ft with 2 Turns (QC): 5 Walk 150 ft (QC): 5 Gait Level of Assist: 6 Gait Assistive Device: FWW Stairs (FIM): 5 # of Steps: 12 1 Step (curb) (QC): 4 4 Steps (QC): 4 12 Steps (QC): 4 Stairs Level Of Assist: 5 Picking up an Object (QC): 5 PT Plan Treatment/Plan Treatment Plan: Continue Plan of Care Treatment Plan: Bed Mobility, Education, Functional Activity Shari, Functional Strength, Group Therapy, Gait, Safety, Therapeutic Exercise, Transfers Treatment Duration: Dec 25, 2016 Frequency: At least 5 of 7 days/Wk (IRF) Estimated Hrs Per Day: 1.5 hours per day Patient and/or Family Agrees t: Yes Time/GCodes Time In: 800 Time Out: 900 Total Billed Treatment Time: 60 Total Billed Treatment 1 visit GT x 2 35 min EX x 2 25 min MICHELLE ROLLINS PT Dec 11, 2016 09:41
[2016-12-11] MEDS: FUROSEMIDE 40 MG/4 ML INJ (LASIX) IVP SCH (09:55)
[2016-12-11] MEDS: MICONAZOLE 2% POWDER (DESENEX AF) 90 GM TOP SCH ×2 (10:00→22:14)
[2016-12-11] MEDS: MAGIC MOUTHWASH (ADULT) PO SCH ×8 (10:10→21:38)
--- NOTE | 2016-12-11 11:58 | Progress Note (SOAP) ---
Subjective Date Seen by Provider: Dec 11, 2016 Time Seen by Provider: 11:50 Subjective/Events-last exam s/p laparoscopic right hemicolectomy with enterocutaneous fistula. continue PT. diet as tolererated. will address fistula at later time. Objective Exam Vital Signs Date Time Temp Pulse Resp B/P (MAP) Pulse Ox O2 Delivery O2 Flow Rate FiO2 12/11/16 11:11 95 Room Air 12/11/16 10:35 97 Room Air 12/11/16 10:07 96 Room Air 12/11/16 08:40 Nasal Cannula 1.00 12/11/16 07:57 98.6 78 18 123/61 95 Room Air 12/11/16 07:24 97 Nasal Cannula 2.00 12/11/16 05:17 100.6 74 14 139/69 97 Nasal Cannula 1.00 12/10/16 22:02 97 Nasal Cannula 2.00 12/10/16 20:45 Nasal Cannula 1.00 12/10/16 18:30 99.8 73 14 130/72 98 12/10/16 18:25 98 Nasal Cannula 2.00 12/10/16 12:35 99.8 12/10/16 12:10 Nasal Cannula 1.00 I & O 12/12/16 07:00 Intake Total 100 ml Balance 100 ml Capillary Refill : Less Than 3 Seconds General Appearance: No Apparent Distress HEENT: PERRL/EOMI Neck: Full Range of Motion Respiratory: Chest Non Tender Cardiovascular: Regular Rate, Rhythm Gastrointestinal: normal bowel sounds, non tender, soft Extremity: Normal Capillary Refill Neurologic/Psychiatric: Alert, Oriented x3 Skin: Normal Color Lymphatic: No Adenopathy Assessment/Plan Assessment/Plan Assess & Plan/Chief 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 encourage PO for now due to poor nutritional status small protein reserve. will deal with fistula later after completely healed and nutritional status more appropriate. Clinical Quality Measures DVT/VTE Risk/Contraindication: Risk Factor Score Per Nursin RFS Level Per Nursing on Admit: 4+=Very High STEPHANY ALY MD Dec 11, 2016 11:58 am
--- NOTE | 2016-12-11 13:40 | Physical Therapy Daily Note ---
PT Daily Note-Current Subjective Patient continues to c/o fatigue. Pain Numeric Pain Scale: 0-No Pain Location: No Pain Reported Mental Status Patient Orientation: Normal For Age Transfers Functional [place] Measure 0=Not Assessed/NA 4=Minimal Assistance 1=Total Assistance 5=Supervision or Setup 2=Maximal Assistance 6=Modified [place] 3=Moderate Assistance 7=Complete IndependenceIRFPAI Quality Coding Scale 6 Independent with activity with or without an assistive device 5 Patient requires set up or clean up by helper. Patient completes activity by themselves 4 Supervision or touching assist (CGA). [place] provide cues , steadying assist 3 The helper provides less than half the effort to complete the activity 2 The helper provides more than half the effort to complete the activity 1 Dependent. The helper does all the effort to complete an activity 7 Patient refused to complete or attempt activity 9 The patient did not perform the activity before the current illness or injury 88 Not attempted due to Medical conditions or safety concerns Transfers (B, C, W/C) (FIM): 6 Scootin Sit to/from Stand: 6 Sit to Stand (QC): 5 Weight Bearing Right Lower Extremity: Right Weight Bearing/Tolerated Left Lower Extremity: Left Weight Bearing/Tolerated Gait Training Does the Patient Walk?: Yes Gait (FIM): 5 Distance (FIM): 3=150 ft Distance: 150' x 2 Walk 10 feet (QC): 4 Walk 50 ft with 2 Turns(QC): 4 Walk 150 ft (QC): 4 Gait Level of Assist: 5 Gait Assistive Device: FWW Exercises NuStep Minutes: 15 NuStep Workload: 4 (to improve cardiopulmonary function with activity) Assessment Current Status: Excellent Progress PT Jail Goals Jail Goals PT Jail Goals Time Frame: Dec 25, 2016 Transfers (B,C,W/C) (FIM): 6 Sit to Lying (QC): 5 Lying-Sitting on Side/Bed(QC): 5 Sit to Stand (QC): 5 Rollin Roll Left to Right (QC): 5 Chair/Wzl-lq-Fooyf Xfer(QC): 5 Car Transfer (QC): 5 Does the Patient Walk: Yes Gait (FIM): 6 Gait distance (FIM): 3=150 ft Distance: 300' Walk 10 feet (QC): 5 Walk 10ft-Uneven Surface(QC): 5 Walk 50ft with 2 Turns (QC): 5 Walk 150 ft (QC): 5 Gait Level of Assist: 6 Gait Assistive Device: FWW Stairs (FIM): 5 # of Steps: 12 1 Step (curb) (QC): 4 4 Steps (QC): 4 12 Steps (QC): 4 Stairs Level Of Assist: 5 Picking up an Object (QC): 5 PT Plan Treatment/Plan Treatment Plan: Continue Plan of Care Treatment Plan: Bed Mobility, Education, Functional Activity Shari, Functional Strength, Group Therapy, Gait, Safety, Therapeutic Exercise, Transfers Treatment Duration: Dec 25, 2016 Frequency: At least 5 of 7 days/Wk (IRF) Estimated Hrs Per Day: 1.5 hours per day Patient and/or Family Agrees t: Yes Time/GCodes Time In: 1300 Time Out: 1330 Total Billed Treatment Time: 30 Total Billed Treatment 1 visit EX 15 min GT 15 min MICHELLE ROLLINS PT Dec 11, 2016 13:40
--- NOTE | 2016-12-11 14:41 | Occupational Ther Daily Note ---
OT Current Status-Daily Note Mental Status/Objective Functional [place] Measure 0=Not Assessed/NA 4=Minimal Assistance 1=Total Assistance 5=Supervision or Setup 2=Maximal Assistance 6=Modified [place] 3=Moderate Assistance 7=Complete [place] ADL-Treatment Functional [place] Measure 0=Not Assessed/NA 4=Minimal Assistance 1=Total Assistance 5=Supervision or Setup 2=Maximal Assistance 6=Modified [place] 3=Moderate Assistance 7=Complete IndependenceIRFPAI Quality Coding Scale 6 Independent with activity with or without an assistive device 5 Patient requires set up or clean up by helper. Patient completes activity by themselves 4 Supervision or touching assist (CGA). [place] provide cues , steadying assist 3 The helper provides less than half the effort to complete the activity 2 The helper provides more than half the effort to complete the activity 1 Dependent. The helper does all the effort to complete an activity 7 Patient refused to complete or attempt activity 9 The patient did not perform the activity before the current illness or injury 88 Not attempted due to Medical conditions or safety concerns OT Short Term Goals Short Term Goals Time Frame: Dec 11, 2016 Lower Body Dressing(FIM): 5 Toileting(FIM): 4 1=Demonstrate adherence to instructed precautions during ADL tasks. 2=Patient will verbalize/demonstrate understanding of assistive devices/ modifications for ADL. 3=Patient will improve strength/tolerance for activity to enable patient to perform ADL's. OT Billing Rep Goals Billing Rep Goals Time Frame: Dec 25, 2016 Eating (FIM): 6 Eating (QC): 6 Groomin Oral Hygiene (QC): 6 Bathing(FIM): 6 Shower/Bathe Self (QC): 6 Upper Body Dressing(FIM): 6 Upper Body Dressing (QC): 6 Lower Body Dressing(FIM): 6 Lower Body Dressing (QC): 6 On/Off Footwear (QC): 6 Toileting(FIM): 6 Toileting Hygiene (QC): 6 Toilet/Commode Transfer(FIM): 6 Toilet/Commode Transfer (QC): 6 Shower Transfer(FIM): 6 Additional Goals: 2-Verbalize Understanding, 3-ImproveStrength/Shari 1=Demonstrate adherence to instructed precautions during ADL tasks. 2=Patient will verbalize/demonstrate understanding of assistive devices/ modifications for ADL. 3=Patient will improve strength/tolerance for activity to enable patient to perform ADL's. OT Education/Plan Problem List/Assessment Pt was off the unit for two days for respiratory distress. She returned this morning and said she is ready to continue with therapy. We will continue with same treatment plan and goals. Discharge Recommendations Plan/Recommendations: Continue POC Treatment Plan/Plan of Care Patient would benefit from OT for education, treatment and training to promote independence in ADL's, mobility, safety and/or upper extremity function for ADL' s. Plan of Care: ADL Retraining, Functional Mobility, Group Exercise/Act as Ind ( educ, exercise, activ tolerance, funct activities, socialization), UE Funct Exercise/Act, UE Neuromus Re-Ed/Coord Treatment Duration: Dec 25, 2016 Frequency: At least 5 of 7 days/Wk (IRF) Estimated Hrs Per Day: 1.5 hours per day Agreement: Yes Rehab Potential: Good Time/GCodes Start Time: 09:00 Stop Time: 10:02 Total Time Billed (hr/min): 62 Billed Treatment Time visit, 62 minutes ADL AUSTEN PISANO OT Dec 11, 2016 14:41
--- NOTE | 2016-12-11 14:43 | Occupational Ther Daily Note ---
OT Current Status-Daily Note Mental Status/Objective Functional [place] Measure 0=Not Assessed/NA 4=Minimal Assistance 1=Total Assistance 5=Supervision or Setup 2=Maximal Assistance 6=Modified [place] 3=Moderate Assistance 7=Complete [place] ADL-Treatment Functional [place] Measure 0=Not Assessed/NA 4=Minimal Assistance 1=Total Assistance 5=Supervision or Setup 2=Maximal Assistance 6=Modified [place] 3=Moderate Assistance 7=Complete IndependenceIRFPAI Quality Coding Scale 6 Independent with activity with or without an assistive device 5 Patient requires set up or clean up by helper. Patient completes activity by themselves 4 Supervision or touching assist (CGA). [place] provide cues , steadying assist 3 The helper provides less than half the effort to complete the activity 2 The helper provides more than half the effort to complete the activity 1 Dependent. The helper does all the effort to complete an activity 7 Patient refused to complete or attempt activity 9 The patient did not perform the activity before the current illness or injury 88 Not attempted due to Medical conditions or safety concerns OT Short Term Goals Short Term Goals Time Frame: Dec 11, 2016 Lower Body Dressing(FIM): 5 Toileting(FIM): 4 1=Demonstrate adherence to instructed precautions during ADL tasks. 2=Patient will verbalize/demonstrate understanding of assistive devices/ modifications for ADL. 3=Patient will improve strength/tolerance for activity to enable patient to perform ADL's. OT Automatic Pilot Mechanic Goals Automatic Pilot Mechanic Goals Time Frame: Dec 25, 2016 Eating (FIM): 6 Eating (QC): 6 Groomin Oral Hygiene (QC): 6 Bathing(FIM): 6 Shower/Bathe Self (QC): 6 Upper Body Dressing(FIM): 6 Upper Body Dressing (QC): 6 Lower Body Dressing(FIM): 6 Lower Body Dressing (QC): 6 On/Off Footwear (QC): 6 Toileting(FIM): 6 Toileting Hygiene (QC): 6 Toilet/Commode Transfer(FIM): 6 Toilet/Commode Transfer (QC): 6 Shower Transfer(FIM): 6 Additional Goals: 2-Verbalize Understanding, 3-ImproveStrength/Shari 1=Demonstrate adherence to instructed precautions during ADL tasks. 2=Patient will verbalize/demonstrate understanding of assistive devices/ modifications for ADL. 3=Patient will improve strength/tolerance for activity to enable patient to perform ADL's. OT Education/Plan Problem List/Assessment Pt was off the unit for two days for respiratory distress. She returned this morning and said she is ready to continue with therapy. We will continue with same treatment plan and goals. Discharge Recommendations Plan/Recommendations: Continue POC Treatment Plan/Plan of Care Patient would benefit from OT for education, treatment and training to promote independence in ADL's, mobility, safety and/or upper extremity function for ADL' s. Plan of Care: ADL Retraining, Functional Mobility, Group Exercise/Act as Ind ( educ, exercise, activ tolerance, funct activities, socialization), UE Funct Exercise/Act, UE Neuromus Re-Ed/Coord Treatment Duration: Dec 25, 2016 Frequency: At least 5 of 7 days/Wk (IRF) Estimated Hrs Per Day: 1.5 hours per day Agreement: Yes Rehab Potential: Good Time/GCodes Start Time: 13:00 Stop Time: 13:30 Total Time Billed (hr/min): 30 Billed Treatment Time visit, 30 minutes exercise AUSTEN PISANO OT Dec 11, 2016 14:43
--- NOTE | 2016-12-11 14:46 | Occupational Ther Daily Note ---
OT Current Status-Daily Note Subjective Pt seen in room, up in recliner, agreeable to OT. Pt reported no pain. Appearance Alert, cooperative Mental Status/Objective Functional [place] Measure 0=Not Assessed/NA 4=Minimal Assistance 1=Total Assistance 5=Supervision or Setup 2=Maximal Assistance 6=Modified [place] 3=Moderate Assistance 7=Complete [place] ADL-Treatment Pt reported that she had been given Lasix and toileted before shower and after shower. Got oout of recliner with SBA and walked SBA, FWW to bathroom. Also walked between toilet and shower bench and back to recliner, FWW, SBA for safety. Pt's oxygen has been taken off but is available if needed. Pt did not need O2 throughout tx. Functional [place] Measure 0=Not Assessed/NA 4=Minimal Assistance 1=Total Assistance 5=Supervision or Setup 2=Maximal Assistance 6=Modified [place] 3=Moderate Assistance 7=Complete IndependenceIRFPAI Quality Coding Scale 6 Independent with activity with or without an assistive device 5 Patient requires set up or clean up by helper. Patient completes activity by themselves 4 Supervision or touching assist (CGA). [place] provide cues , steadying assist 3 The helper provides less than half the effort to complete the activity 2 The helper provides more than half the effort to complete the activity 1 Dependent. The helper does all the effort to complete an activity 7 Patient refused to complete or attempt activity 9 The patient did not perform the activity before the current illness or injury 88 Not attempted due to Medical conditions or safety concerns Eating (FIM): 6 (Opened package and fed self ) Grooming (FIM): 5 (brushed teeth and hair, standing SBA at sink, FWW for balance. pt educ to keep walker in front of her for balance) Bathing (FIM): 5 (Pt washed and dried all parts with setup. Shower bench, grab bar, hand held shower. Stood to wash bottom with SBA. Long handled sponge) Upper Body (FIM): 5 (Pt donned top with setup.) Lower Body Dressing (FIM): 4 (Doffed slipper socks and pants with dressing stick. Used dressing stick to put pants on, with skilled cues. Slipper socks put on after sim wraps due to bulk of wraps) Toileting (FIM): 5 (SBA to manage clothing and hygiene. BSc over toilet, grab bar, FWW) Transfers (B, C, W/C) (FIM): 5 (Pt educ on walker placement when sitting (keep it infront and "square up") and to reach arms back to assist with sitting down rather than leave them on walker. ) Shower Transfer(FIM): 4 (CGA getting in and out of shower. Shower bench, grab bar) Gentle retrograde massage to both feet and lower legs to help decrease edema so that she can get socks on. pt edu on purpose. Sim wraps applied to bilat feet in figure of 8 wrap, to knees. Bilat feet elevated with recliner and floated on pillow. pt educ on elevation, massage and compression to dec edema. Pt reported wraps felt good. Pt left up in recliner, all needs met. Education OT Patient Education: Modified ADL techniques, Progress toward Goal/Update tx plan, Purpose of tx/functional activities, Transfer techniques Teaching Recipient: Patient Teaching Methods: Demonstration, Discussion Response to Teaching: Verbalize Understanding, Return Demonstration, Reinforcement Needed OT Short Term Goals Short Term Goals Time Frame: Dec 11, 2016 Lower Body Dressing(FIM): 5 Toileting(FIM): 4 1=Demonstrate adherence to instructed precautions during ADL tasks. 2=Patient will verbalize/demonstrate understanding of assistive devices/ modifications for ADL. 3=Patient will improve strength/tolerance for activity to enable patient to perform ADL's. OT Fpc Goals Plant Safety Leader Goals Time Frame: Dec 25, 2016 Eating (FIM): 6 Eating (QC): 6 Groomin Oral Hygiene (QC): 6 Bathing(FIM): 6 Shower/Bathe Self (QC): 6 Upper Body Dressing(FIM): 6 Upper Body Dressing (QC): 6 Lower Body Dressing(FIM): 6 Lower Body Dressing (QC): 6 On/Off Footwear (QC): 6 Toileting(FIM): 6 Toileting Hygiene (QC): 6 Toilet/Commode Transfer(FIM): 6 Toilet/Commode Transfer (QC): 6 Shower Transfer(FIM): 6 Additional Goals: 2-Verbalize Understanding, 3-ImproveStrength/Shari 1=Demonstrate adherence to instructed precautions during ADL tasks. 2=Patient will verbalize/demonstrate understanding of assistive devices/ modifications for ADL. 3=Patient will improve strength/tolerance for activity to enable patient to perform ADL's. OT Education/Plan Problem List/Assessment Pt was off the unit for two days for respiratory distress. She returned this morning and said she is ready to continue with therapy. We will continue with same treatment plan and goals. Discharge Recommendations Plan/Recommendations: Continue POC Treatment Plan/Plan of Care Patient would benefit from OT for education, treatment and training to promote independence in ADL's, mobility, safety and/or upper extremity function for ADL' s. Plan of Care: ADL Retraining, Functional Mobility, Group Exercise/Act as Ind ( educ, exercise, activ tolerance, funct activities, socialization), UE Funct Exercise/Act, UE Neuromus Re-Ed/Coord Treatment Duration: Dec 25, 2016 Frequency: At least 5 of 7 days/Wk (IRF) Estimated Hrs Per Day: 1.5 hours per day Agreement: Yes Rehab Potential: Good Time/GCodes Start Time: 11:05 Stop Time: 12:10 Total Time Billed (hr/min): 65 Billed Treatment Time visit, 65 minutes ADL AUSTEN PISANO OT Dec 11, 2016 14:46
--- NOTE | 2016-12-11 14:47 | Occupational Ther Daily Note ---
OT Current Status-Daily Note Subjective Pt seen in room, up in recliner, agreeable to OT. No pain mentioned. Appearance Alert, cooperative Mental Status/Objective Functional [place] Measure 0=Not Assessed/NA 4=Minimal Assistance 1=Total Assistance 5=Supervision or Setup 2=Maximal Assistance 6=Modified [place] 3=Moderate Assistance 7=Complete [place] ADL-Treatment Pt toileted at beginning and at end of tx. SBA for toilet transfer, toileting. Functional [place] Measure 0=Not Assessed/NA 4=Minimal Assistance 1=Total Assistance 5=Supervision or Setup 2=Maximal Assistance 6=Modified [place] 3=Moderate Assistance 7=Complete IndependenceIRFPAI Quality Coding Scale 6 Independent with activity with or without an assistive device 5 Patient requires set up or clean up by helper. Patient completes activity by themselves 4 Supervision or touching assist (CGA). [place] provide cues , steadying assist 3 The helper provides less than half the effort to complete the activity 2 The helper provides more than half the effort to complete the activity 1 Dependent. The helper does all the effort to complete an activity 7 Patient refused to complete or attempt activity 9 The patient did not perform the activity before the current illness or injury 88 Not attempted due to Medical conditions or safety concerns Toileting (FIM): 5 (SBA, BSC over toilet, grab bars, FWW) Toilet/Commode Transfer (FIM): 5 (SBA getting on and off BSC, grab bar, FWW) Other Treatment Pt walked to gym with FWW, SBA for safety. No O2 needed throughout. She needed just a little cue to position walker when sitting in chair with arms. Pt did 10 minutes bilat UE exercise on arm bike set at 15w resistance, to strengthen arms and also to increase activity tolerance. pt took one brief recovery period about midpoint but otherwise worked at slow, steady pace. Walked abck to room, toileted and was left up in recliner, legs elevated and heels floated, all needs met. Education OT Patient Education: Progress toward Goal/Update tx plan, Purpose of tx/ functional activities, Transfer techniques Teaching Recipient: Patient Teaching Methods: Discussion Response to Teaching: Verbalize Understanding OT Short Term Goals Short Term Goals Time Frame: Dec 11, 2016 Lower Body Dressing(FIM): 5 Toileting(FIM): 4 1=Demonstrate adherence to instructed precautions during ADL tasks. 2=Patient will verbalize/demonstrate understanding of assistive devices/ modifications for ADL. 3=Patient will improve strength/tolerance for activity to enable patient to perform ADL's. OT Feed Mixer Goals Feed Mixer Goals Time Frame: Dec 25, 2016 Eating (FIM): 6 Eating (QC): 6 Groomin Oral Hygiene (QC): 6 Bathing(FIM): 6 Shower/Bathe Self (QC): 6 Upper Body Dressing(FIM): 6 Upper Body Dressing (QC): 6 Lower Body Dressing(FIM): 6 Lower Body Dressing (QC): 6 On/Off Footwear (QC): 6 Toileting(FIM): 6 Toileting Hygiene (QC): 6 Toilet/Commode Transfer(FIM): 6 Toilet/Commode Transfer (QC): 6 Shower Transfer(FIM): 6 Additional Goals: 2-Verbalize Understanding, 3-ImproveStrength/Shari 1=Demonstrate adherence to instructed precautions during ADL tasks. 2=Patient will verbalize/demonstrate understanding of assistive devices/ modifications for ADL. 3=Patient will improve strength/tolerance for activity to enable patient to perform ADL's. OT Education/Plan Problem List/Assessment Pt was off the unit for two days for respiratory distress. She returned this morning and said she is ready to continue with therapy. We will continue with same treatment plan and goals. Discharge Recommendations Plan/Recommendations: Continue POC Treatment Plan/Plan of Care Patient would benefit from OT for education, treatment and training to promote independence in ADL's, mobility, safety and/or upper extremity function for ADL' s. Plan of Care: ADL Retraining, Functional Mobility, Group Exercise/Act as Ind ( educ, exercise, activ tolerance, funct activities, socialization), UE Funct Exercise/Act, UE Neuromus Re-Ed/Coord Treatment Duration: Dec 25, 2016 Frequency: At least 5 of 7 days/Wk (IRF) Estimated Hrs Per Day: 1.5 hours per day Agreement: Yes Rehab Potential: Good Time/GCodes Start Time: 14:05 Stop Time: 14:32 Total Time Billed (hr/min): 27 Billed Treatment Time visit, ADL 12 minutes, exercise 15 minutes AUSTEN PISANO OT Dec 11, 2016 14:47
[2016-12-11 18:19] VITALS: BP 118/68
[2016-12-12] MEDS: RT-ALBUTEROL/IPRATROPIUM 3 ML (DUONEB) VIAL INH SCH ×7 (02:00→21:35)
[2016-12-12 05:00] VITALS: BP 137/70
[2016-12-12] MEDS: MEROPENEM 500 MG in NS (IVPB) 100 ML IV SCH ×3 (05:03→21:35)
[2016-12-12 05:40] LABS: MEAN PLATELET VOLUME 9.5 FL (7.4-10.4); RED BLOOD COUNT 3.23 10^6/uL (4.35-5.85); RED CELL DISTRIBUTION WIDTH 18.5 % (10.0-14.5); WHITE BLOOD COUNT 10.9 10^3/uL (4.3-11.0)
[2016-12-12 05:57] LABS: ANION GAP 8 MMOL/L (5-14); BLOOD UREA NITROGEN 15 MG/DL (7-18); BUN/CREATININE RATIO 21; CARBON DIOXIDE 29 MMOL/L (21-32); CHLORIDE 97 MMOL/L (98-107); CREATININE SERUM 0.72 MG/DL (0.60-1.30); GFR ESTIMATED > 60; GLUCOSE 105 MG/DL (70-105); MAGNESIUM 1.6 MG/DL (1.8-2.4); SODIUM 134 MMOL/L (135-145)
[2016-12-12] MEDS: KCL 10 MEQ TAB (MICRO K) PO SCH (06:01)
[2016-12-12] MEDS: SENNA W/DOCUSATE (SENOKOT S) TABLET PO SCH (07:43)
[2016-12-12] MEDS: meTOprolol SUCCINATE 100 MG (TOPROL XL) TAB PO SCH ×2 (08:38→21:34)
[2016-12-12] MEDS: MICONAZOLE 2% POWDER (DESENEX AF) 90 GM TOP SCH ×2 (08:38→21:36)
[2016-12-12] MEDS: ENOXAPARIN 30 MG/0.3 ML (LOVENOX) SYR SC SCH ×2 (08:38→21:35)
[2016-12-12] MEDS: FUROSEMIDE 40 MG/4 ML INJ (LASIX) IVP SCH (08:42)
[2016-12-12] MEDS: MAGIC MOUTHWASH (ADULT) PO SCH ×8 (08:44→21:36)
--- NOTE | 2016-12-12 13:57 | Physical Therapy Daily Note ---
PT Daily Note-Current Subjective Pt sleeping upon arrival, easily awakened and agrees to ther ex in bed. Rates pain 0/10. Pt declines out of bed. Pt reports she has been up all days and just got back to bed. Mental Status Patient Orientation: Person, Place, Situation Transfers Functional [place] Measure 0=Not Assessed/NA 4=Minimal Assistance 1=Total Assistance 5=Supervision or Setup 2=Maximal Assistance 6=Modified [place] 3=Moderate Assistance 7=Complete IndependenceIRFPAI Quality Coding Scale 6 Independent with activity with or without an assistive device 5 Patient requires set up or clean up by helper. Patient completes activity by themselves 4 Supervision or touching assist (CGA). [place] provide cues , steadying assist 3 The helper provides less than half the effort to complete the activity 2 The helper provides more than half the effort to complete the activity 1 Dependent. The helper does all the effort to complete an activity 7 Patient refused to complete or attempt activity 9 The patient did not perform the activity before the current illness or injury 88 Not attempted due to Medical conditions or safety concerns Weight Bearing Right Lower Extremity: Right Weight Bearing/Tolerated Left Lower Extremity: Left Weight Bearing/Tolerated Treatments Ther ex: AP, QS, GS, heel slide, SAQ, hip abd, march, Bridge x 20 each Assessment Current Status: Fair Progress Pt shakeel exercises very well. Pt in bed with all needs met, call light in reach. PT Airway Controller Goals Custodial Goals PT Airway Controller Goals Time Frame: Dec 25, 2016 Transfers (B,C,W/C) (FIM): 6 Sit to Lying (QC): 5 Lying-Sitting on Side/Bed(QC): 5 Sit to Stand (QC): 5 Rollin Roll Left to Right (QC): 5 Chair/Rdd-yf-[place] Xfer(QC): 5 Car Transfer (QC): 5 Does the Patient Walk: Yes Gait (FIM): 6 Gait distance (FIM): 3=150 ft Distance: 300' Walk 10 feet (QC): 5 Walk 10ft-Uneven Surface(QC): 5 Walk 50ft with 2 Turns (QC): 5 Walk 150 ft (QC): 5 Gait Level of Assist: 6 Gait Assistive Device: FWW Stairs (FIM): 5 # of Steps: 12 1 Step (curb) (QC): 4 4 Steps (QC): 4 12 Steps (QC): 4 Stairs Level Of Assist: 5 Picking up an Object (QC): 5 PT Plan Treatment/Plan Treatment Plan: Continue Plan of Care Treatment Plan: Bed Mobility, Education, Functional Activity Shari, Functional Strength, Group Therapy, Gait, Safety, Therapeutic Exercise, Transfers Treatment Duration: Dec 25, 2016 Frequency: At least 5 of 7 days/Wk (IRF) Estimated Hrs Per Day: 1.5 hours per day Patient and/or Family Agrees t: Yes Time/GCodes Time In: 1130 Time Out: 1145 Total Billed Treatment Time: 15 Total Billed Treatment 1, EX 15min OSITO BAKER CPTA Dec 12, 2016 13:57
[2016-12-12 18:00] VITALS: BP 134/69
[2016-12-13] MEDS: RT-ALBUTEROL/IPRATROPIUM 3 ML (DUONEB) VIAL INH SCH ×5 (01:32→19:19)
[2016-12-13] MEDS: MEROPENEM 500 MG in NS (IVPB) 100 ML IV SCH ×3 (05:59→21:32)
[2016-12-13] MEDS: KCL 10 MEQ TAB (MICRO K) PO SCH (06:00)
[2016-12-13 06:06] VITALS: BP 138/79
[2016-12-13 09:00] VITALS: BP 128/54
[2016-12-13] MEDS: meTOprolol SUCCINATE 100 MG (TOPROL XL) TAB PO SCH ×2 (09:09→21:30)
[2016-12-13] MEDS: FUROSEMIDE 40 MG/4 ML INJ (LASIX) IVP SCH (09:10)
[2016-12-13] MEDS: MICONAZOLE 2% POWDER (DESENEX AF) 90 GM TOP SCH ×2 (09:10→21:41)
[2016-12-13] MEDS: ENOXAPARIN 30 MG/0.3 ML (LOVENOX) SYR SC SCH ×2 (09:11→21:30)
[2016-12-13] MEDS: SENNA W/DOCUSATE (SENOKOT S) TABLET PO SCH (09:11)
[2016-12-13] MEDS: MAGIC MOUTHWASH (ADULT) PO SCH ×12 (09:34→21:42)
[2016-12-13 17:33] VITALS: BP 115/68
[2016-12-14] MEDS: RT-ALBUTEROL/IPRATROPIUM 3 ML (DUONEB) VIAL INH SCH ×5 (01:28→19:05)
[2016-12-14] MEDS: MEROPENEM 500 MG in NS (IVPB) 100 ML IV SCH ×3 (05:23→14:32)
[2016-12-14 05:39] VITALS: BP 135/72
[2016-12-14] MEDS: KCL 10 MEQ TAB (MICRO K) PO SCH (06:07)
--- NOTE | 2016-12-14 08:55 | Progress Note-Cardiology ---
Cardiology SOAP Progress Note Subjective: Up with PT. States she feels much better today. No c/o CP, palpitations, syncope or near syncope. No c/o dyspnea. States she feels better. Objective: I&O/Vital Signs Vital Sign - Last 12Hours 12/14/16 12/14/16 12/14/16 12/14/16 05:39 07:36 07:44 08:33 Temp 100.0 99.4 Pulse 67 Resp 16 B/P (MAP) 135/72 Pulse Ox 95 92 O2 Delivery Room Air Room Air Room Air 12/14/16 09:15 Temp 98.4 Pulse 78 Resp 20 B/P (MAP) 114/62 Pulse Ox 97 O2 Delivery Room Air Weight (Pounds): 186 Weight (Ounces): 9.0 Weight (Calculated Kilograms): 84.773615 Constitutional: AAO x 3 Respiratory: No accessory muscle use, other (diminished bases bilat; good air entry) Cardiovascular: regular rate-rhythm, S1 and S2, systolic murmur Gastrointestional: round, other (ileostomy) Extremities: significant edema (mild ankle/pedal edema) Neurologic/Psychiatric: grossly intact Skin: No ulcerations, No rash on exposed areas Results/Procedures: Labs Laboratory Tests 12/14/16 09:09: White Blood Count 9.4, Red Blood Count 3.50L, Hemoglobin 9.5L, Hematocrit 30L, Mean Corpuscular Volume 86, Mean Corpuscular Hemoglobin 27, Mean Corpuscular Hemoglobin Concent 32, Red Cell Distribution Width 18.4H, Platelet Count 405H, Mean Platelet Volume 9.4 A/P: Assessment: Gen anasarca; probably related to hypoproteinemia and/or diastolic CHF and/or post-op volume overload - much improved Echo of 12/01/16: LVEF 60-65%, PASP 40-45 mmHg PAF documented during hosp of early Dec 2014. 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 Gaston Small anastomotic leak with air in the adjacent mesenteric fat and along the adjacent fistula tract to the skin in the right lower quadrant per CT of 12-07-16 Elevated BMI of approx 43 No evidence of ischemia or infarction on MPI of 12/11/14; LVEF was 74% H/o hypertension Anemia - transfusion per medical/surgical services; continues to decline Thrombocytosis - gradually improving Plan: Complex management due to multiple comorbidities Change diuretics to oral Resume OAC with Eliquis since H/H has remained stable and no further surgery is pending at this time Continue to monitor rhythm (seems to be maintaining NSR) Monitor lab Replace electrolytes Physician Assessment Physician Assessment Abd pain slowly improving. No shortness of breath or chest pain Lungs: good bilat air entry Cor: reg Ext: mild leg edema A&R * As documented in our note above that I updated (italics) and as noted below * We are trying to change meds to oral (in anticipation of upcoming discharge) * We are using lower dose apixaban, given age and anemia and GI issues (with greater than usual risk of GI bleed) * Monitor labs * I spoke with her and answered CV-related questions ARIS TRINIDAD FREIGHT ELEVATOR ERECTOR Dec 14, 2016 08:55 EMILY HILTON MD [facility] Dec 14, 2016 12:58
[2016-12-14] MEDS ORDERED: KCL 10 MEQ TAB (MICRO K) PO NR (09:00)
--- NOTE | 2016-12-14 09:04 | Physical Therapy Daily Note ---
PT Daily Note-Current Subjective Patient is tearful this morning stating, "I just want to go home. I feel I'm ready." Pain Numeric Pain Scale: 0-No Pain Location: No Pain Reported Mental Status Patient Orientation: Normal For Age Transfers Functional [place] Measure 0=Not Assessed/NA 4=Minimal Assistance 1=Total Assistance 5=Supervision or Setup 2=Maximal Assistance 6=Modified [place] 3=Moderate Assistance 7=Complete IndependenceIRFPAI Quality Coding Scale 6 Independent with activity with or without an assistive device 5 Patient requires set up or clean up by helper. Patient completes activity by themselves 4 Supervision or touching assist (CGA). [place] provide cues , steadying assist 3 The helper provides less than half the effort to complete the activity 2 The helper provides more than half the effort to complete the activity 1 Dependent. The helper does all the effort to complete an activity 7 Patient refused to complete or attempt activity 9 The patient did not perform the activity before the current illness or injury 88 Not attempted due to Medical conditions or safety concerns Transfers (B, C, W/C) (FIM): 6 Scootin Rollin Roll Left to Right (QC): 5 Supine to/from Sit: 6 Sit to/from Stand: 6 Sit to Lying (QC): 5 Sit to Stand (QC): 5 Chair/Qgl-mf-Ewfnq Xfer(QC): 5 Bed to/from Chair: 5 Car Transfer (QC): 5 Weight Bearing Right Lower Extremity: Right Weight Bearing/Tolerated Left Lower Extremity: Left Weight Bearing/Tolerated Gait Training Does the Patient Walk?: Yes Gait (FIM): 6 Distance (FIM): 3=150 ft Distance: 150' x 3 Walk 10 feet (QC): 5 Walk 50 ft with 2 Turns(QC): 5 Walk 150 ft (QC): 5 Walking 10ft/uneven surface-QC: 5 Gait Level of Assist: 6 Gait Assistive Device: FWW slow, functional, safe (patient has been instructed to be up ad harsha in room and hallway) Stair Training Stair Training: Handrails/: 2 handrails Stairs (FIM): 5 #of Steps: 8 1 Step (curb) (QC): 4 4 Steps (QC): 4 12 Steps (QC): 9 Stairs: Pattern: Step to Level of Assist: 5 Balance Picking up an Object (QC): 5 Exercises Seated Therapy Exercises: Ankle pumps, Long arc quads Seated Reps: 25 (x 3 sets) NuStep Minutes: 15 NuStep Workload: 4 (to increase functional mobility) Assessment Current Status: Excellent Progress Patient has made remarkable progress and has been instructed to be up ad harsha in room and hallway. RN notified. PT Half-Way Goals Blocker Polishing Goals PT Half-Way Goals Time Frame: Dec 25, 2016 Transfers (B,C,W/C) (FIM): 6 (met 12/14/16) Sit to Lying (QC): 5 (met ) Lying-Sitting on Side/Bed(QC): 5 (met 12/14/16) Sit to Stand (QC): 5 (met 12/14/16) Rollin (met 12/14/16) Roll Left to Right (QC): 5 (met 12/14/16) Chair/Vjy-ix-Tjjxq Xfer(QC): 5 (met 12/14/16) Car Transfer (QC): 5 (met 12/14/16) Does the Patient Walk: Yes Gait (FIM): 6 (met 12/14/16) Gait distance (FIM): 3=150 ft Distance: 300' Walk 10 feet (QC): 5 (met 12/14/16) Walk 10ft-Uneven Surface(QC): 5 (met 12/14/16) Walk 50ft with 2 Turns (QC): 5 (met 12/14/16) Walk 150 ft (QC): 5 (met 12/14/16) Gait Level of Assist: 6 (met 12/14/16) Gait Assistive Device: FWW Stairs (FIM): 5 (met 12/14/16) # of Steps: 12 1 Step (curb) (QC): 4 (met 12/14/16) 4 Steps (QC): 4 (met 12/14/16) 12 Steps (QC): 4 Stairs Level Of Assist: 5 (met ) Picking up an Object (QC): 5 (met 12/14/16) PT Plan Treatment/Plan Treatment Plan: Continue Plan of Care Treatment Plan: Bed Mobility, Education, Functional Activity Shari, Functional Strength, Group Therapy, Gait, Safety, Therapeutic Exercise, Transfers Treatment Duration: Dec 25, 2016 Frequency: At least 5 of 7 days/Wk (IRF) Estimated Hrs Per Day: 1.5 hours per day Patient and/or Family Agrees t: Yes Discharge Recommendations Therapy D/C Recommendations: Physical Therapy Home Care Time/GCodes Time In: 800 Time Out: 900 Total Billed Treatment Time: 60 Total Billed Treatment 1 visit EX x 2 25 min FA 18 min GT 17 min MICHELLE ROLLINS PT Dec 14, 2016 09:04
[2016-12-14] MEDS: SENNA W/DOCUSATE (SENOKOT S) TABLET PO SCH (09:08)
[2016-12-14 09:15] VITALS: BP 114/62
[2016-12-14 09:15] LABS: MEAN PLATELET VOLUME 9.4 FL (7.4-10.4); RED BLOOD COUNT 3.5 10^6/uL (4.35-5.85); RED CELL DISTRIBUTION WIDTH 18.4 % (10.0-14.5); WHITE BLOOD COUNT 9.4 10^3/uL (4.3-11.0)
[2016-12-14] MEDS: meTOprolol SUCCINATE 100 MG (TOPROL XL) TAB PO SCH ×2 (09:18→20:34)
[2016-12-14] MEDS: MICONAZOLE 2% POWDER (DESENEX AF) 90 GM TOP SCH ×2 (09:19→20:38)
[2016-12-14] MEDS: MAGIC MOUTHWASH (ADULT) PO SCH ×8 (09:27→20:35)
[2016-12-14] MEDS: APIXABAN 2.5 MG (ELIQUIS) TABLET PO SCH ×2 (09:41→20:34)
[2016-12-14] MEDS: FUROSEMIDE 40 MG (LASIX) TAB PO SCH (09:42)
--- NOTE | 2016-12-14 11:12 | Progress Note-Hospitalist ---
Subjective HPI/CC On Admission Date Seen by Provider: Dec 14, 2016 Time Seen by Provider: 11:04 Subjective/Events-last exam Pt reports doing well this morning. No complaints. Working with therapy well. Appetite not great but trying to eat for strength. Objective Exam Vital Signs Vital Sign - Last 12Hours 12/08/16 05:29 Temp 99.0 Pulse 71 Resp 18 B/P (MAP) 133/69 Pulse Ox 98 O2 Delivery Nasal Cannula O2 Flow Rate 1.50 Capillary Refill : Less Than 3 Seconds General Appearance: No Apparent Distress, WD/WN Respiratory: Lungs Clear, Normal Breath Sounds Cardiovascular: Regular Rate, Rhythm, No Murmur Gastrointestinal: Non Tender, Soft Extremity: Non Tender, No Calf Tenderness, No Pedal Edema Neurologic/Psychiatric: Alert, Oriented x3 Results/Procedures Lab Laboratory Tests 12/14/16 09:09 Assessment/Plan Assessment and Plan Assess & Plan/Chief Complaint Severe debility Continue management per rehab team 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
--- NOTE | 2016-12-14 13:04 | Physical Therapy Daily Note ---
PT Daily Note-Current Subjective Patient agrees to PT. Pain Numeric Pain Scale: 0-No Pain Location: No Pain Reported Mental Status Patient Orientation: Normal For Age Transfers Functional [place] Measure 0=Not Assessed/NA 4=Minimal Assistance 1=Total Assistance 5=Supervision or Setup 2=Maximal Assistance 6=Modified [place] 3=Moderate Assistance 7=Complete IndependenceIRFPAI Quality Coding Scale 6 Independent with activity with or without an assistive device 5 Patient requires set up or clean up by helper. Patient completes activity by themselves 4 Supervision or touching assist (CGA). [place] provide cues , steadying assist 3 The helper provides less than half the effort to complete the activity 2 The helper provides more than half the effort to complete the activity 1 Dependent. The helper does all the effort to complete an activity 7 Patient refused to complete or attempt activity 9 The patient did not perform the activity before the current illness or injury 88 Not attempted due to Medical conditions or safety concerns Transfers (B, C, W/C) (FIM): 6 Scootin Sit to/from Stand: 6 Sit to Stand (QC): 5 Weight Bearing Right Lower Extremity: Right Weight Bearing/Tolerated Left Lower Extremity: Left Weight Bearing/Tolerated Gait Training Does the Patient Walk?: Yes Gait (FIM): 6 Distance (FIM): 3=150 ft Distance: 250' x 2 Walk 10 feet (QC): 5 Walk 50 ft with 2 Turns(QC): 5 Walk 150 ft (QC): 5 Gait Level of Assist: 6 Gait Assistive Device: FWW steady/functional Exercises Seated Therapy Exercises: Ankle pumps, Long arc quads, Hip flexion Seated Reps: 25 (3 sets to increase strength to improve functional mobility) Assessment Current Status: Excellent Progress PT Marquetry Worker Goals Longterm Goals PT Longterm Goals Time Frame: Dec 25, 2016 Transfers (B,C,W/C) (FIM): 6 (met 12/14/16) Sit to Lying (QC): 5 (met ) Lying-Sitting on Side/Bed(QC): 5 (met 12/14/16) Sit to Stand (QC): 5 (met 12/14/16) Rollin (met 12/14/16) Roll Left to Right (QC): 5 (met 12/14/16) Chair/Pio-zg-Jhaql Xfer(QC): 5 (met 12/14/16) Car Transfer (QC): 5 (met 12/14/16) Does the Patient Walk: Yes Gait (FIM): 6 (met 12/14/16) Gait distance (FIM): 3=150 ft Distance: 300' Walk 10 feet (QC): 5 (met 12/14/16) Walk 10ft-Uneven Surface(QC): 5 (met 12/14/16) Walk 50ft with 2 Turns (QC): 5 (met 12/14/16) Walk 150 ft (QC): 5 (met 12/14/16) Gait Level of Assist: 6 (met 12/14/16) Gait Assistive Device: FWW Stairs (FIM): 5 (met 12/14/16) # of Steps: 12 1 Step (curb) (QC): 4 (met 12/14/16) 4 Steps (QC): 4 (met 12/14/16) 12 Steps (QC): 4 Stairs Level Of Assist: 5 (met ) Picking up an Object (QC): 5 (met 12/14/16) PT Plan Treatment/Plan Treatment Plan: Continue Plan of Care Treatment Plan: Bed Mobility, Education, Functional Activity Shari, Functional Strength, Group Therapy, Gait, Safety, Therapeutic Exercise, Transfers Treatment Duration: Dec 25, 2016 Frequency: At least 5 of 7 days/Wk (IRF) Estimated Hrs Per Day: 1.5 hours per day Patient and/or Family Agrees t: Yes Time/GCodes Time In: 1230 Time Out: 1300 Total Billed Treatment Time: 30 Total Billed Treatment 1 visit EX 13 min FA 17 min MICHELLE ROLLINS PT Dec 14, 2016 13:04
--- NOTE | 2016-12-14 13:25 | Occupational Ther Daily Note ---
OT Current Status-Daily Note Subjective Pt seen in room, up in recliner, hopeful to go home soon (hopefully tomorrow because her son has the day off). No pain mentioned. Pt said she had a good weekend. Appearance Alert, cooperative Mental Status/Objective Functional [place] Measure 0=Not Assessed/NA 4=Minimal Assistance 1=Total Assistance 5=Supervision or Setup 2=Maximal Assistance 6=Modified [place] 3=Moderate Assistance 7=Complete [place] ADL-Treatment Edema has significantly decreased in bilat UEs and panchito wraps not needed. Functional [place] Measure 0=Not Assessed/NA 4=Minimal Assistance 1=Total Assistance 5=Supervision or Setup 2=Maximal Assistance 6=Modified [place] 3=Moderate Assistance 7=Complete IndependenceIRFPAI Quality Coding Scale 6 Independent with activity with or without an assistive device 5 Patient requires set up or clean up by helper. Patient completes activity by themselves 4 Supervision or touching assist (CGA). [place] provide cues , steadying assist 3 The helper provides less than half the effort to complete the activity 2 The helper provides more than half the effort to complete the activity 1 Dependent. The helper does all the effort to complete an activity 7 Patient refused to complete or attempt activity 9 The patient did not perform the activity before the current illness or injury 88 Not attempted due to Medical conditions or safety concerns Eating (FIM): 7 (Opens packages and cuts up food. Able to feed herself. No dentures) Eating (QC): 6 Grooming (FIM): 6 (Brushed teeth and combed hair at sink. Washed face and hands during shower. No makeup. FWW for balance at sink.) Oral Hygiene (QC): 6 Bathing (FIM): 6 (Pt washed and dried all parts, turned water on and retrieved towel. Shower bench, grab bars, hand held shower, long handled sponge, FWW) Shower/Bathe Self (QC): 6 Upper Body (FIM): 6 (Took clothes off and put them on without assistance. Reported a little discomfort in R shoulder when putting gown on. "maybe I strained it a little this weekend". ) Upper Body Dressing (QC): 6 Lower Body Dressing (FIM): 5 (Doffed clothing without devices but used dressing stick and sock aid to put pants and slipper socks on. Pt educ modified techique for socks. 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 Able to stand to pull pants up without LOB, FWW) Lower Body Dressing (QC): 5 On/Off Footwear (QC): 5 (with device) Toileting (FIM): 6 (Pt managed clothing and hygiene without assistance, BSC over toilet, grab bars, FWW) Toileting Hygiene (QC): 6 Toilet/Commode Transfer (FIM): 6 (On and off BSC over toilet, grab bar, FWW) Toilet Transfer (QC): 6 Shower Transfer(FIM): 6 (No difficulties getting on and off shower bench, using grab bar and FWW) Pt reported that she has "arms" on her toilet at home. Other Treatment Pt walked to gym with FWW and no assistance or LOB, moving slowly and deliberately. Pt did 4 minutes bilat UE exercise on arm bike set at 15W resistance but reported that she had increased pain lateral side R shoulder. Activity was stopped. She continued with bilat UE strengthening with arc activity with short extension, 2 sets. Pt walked back to room without help and was left up in recliner, legs elevated, all needs met. Education OT Patient Education: Exercise program, Modified ADL techniques, Progress toward Goal/Update tx plan, Purpose of tx/functional activities, Safety issues Teaching Recipient: Patient Teaching Methods: Demonstration, Discussion Response to Teaching: Verbalize Understanding, Return Demonstration OT Short Term Goals Short Term Goals Time Frame: Dec 11, 2016 Lower Body Dressing(FIM): 5 Toileting(FIM): 4 1=Demonstrate adherence to instructed precautions during ADL tasks. 2=Patient will verbalize/demonstrate understanding of assistive devices/ modifications for ADL. 3=Patient will improve strength/tolerance for activity to enable patient to perform ADL's. OT [facility] Goals Ski Guide Goals Time Frame: Dec 25, 2016 Eating (FIM): 6 Eating (QC): 6 Groomin Oral Hygiene (QC): 6 Bathing(FIM): 6 Shower/Bathe Self (QC): 6 Upper Body Dressing(FIM): 6 Upper Body Dressing (QC): 6 Lower Body Dressing(FIM): 6 Lower Body Dressing (QC): 6 On/Off Footwear (QC): 6 Toileting(FIM): 6 Toileting Hygiene (QC): 6 Toilet/Commode Transfer(FIM): 6 Toilet/Commode Transfer (QC): 6 Shower Transfer(FIM): 6 Additional Goals: 2-Verbalize Understanding, 3-ImproveStrength/Shari 1=Demonstrate adherence to instructed precautions during ADL tasks. 2=Patient will verbalize/demonstrate understanding of assistive devices/ modifications for ADL. 3=Patient will improve strength/tolerance for activity to enable patient to perform ADL's. OT Education/Plan Problem List/Assessment Pt was off the unit for two days for respiratory distress. She returned this morning and said she is ready to continue with therapy. We will continue with same treatment plan and goals. Discharge Recommendations Plan/Recommendations: Continue POC Treatment Plan/Plan of Care Patient would benefit from OT for education, treatment and training to promote independence in ADL's, mobility, safety and/or upper extremity function for ADL' s. Plan of Care: ADL Retraining, Functional Mobility, Group Exercise/Act as Ind ( educ, exercise, activ tolerance, funct activities, socialization), UE Funct Exercise/Act, UE Neuromus Re-Ed/Coord Treatment Duration: Dec 25, 2016 Frequency: At least 5 of 7 days/Wk (IRF) Estimated Hrs Per Day: 1.5 hours per day Agreement: Yes Rehab Potential: Good Time/GCodes Start Time: 10:00 Stop Time: 11:00 Total Time Billed (hr/min): 60 Billed Treatment Time visit, 40 minutes ADL, 20 minutes exercise AUSTEN PISANO OT Dec 14, 2016 13:25
--- NOTE | 2016-12-14 15:27 | Occupational Ther Daily Note ---
OT Current Status-Daily Note Subjective Pt seen in room, up in recliner, agreeable to OT. Reported some soreness at times with R shoulder but not rated or described. Pt also started to get an "optical migraine" during tx. Appearance Alert, cooperative Mental Status/Objective Functional [place] Measure 0=Not Assessed/NA 4=Minimal Assistance 1=Total Assistance 5=Supervision or Setup 2=Maximal Assistance 6=Modified [place] 3=Moderate Assistance 7=Complete [place] ADL-Treatment Pt will discharge to home tomorrow, when her son can pick her up. Equipment recommendation to SW is sock aid. Pt has a uniform room attendant and arms for toilet and doesn 't believe she will need a shower chair. Toileted mod I. Functional [place] Measure 0=Not Assessed/NA 4=Minimal Assistance 1=Total Assistance 5=Supervision or Setup 2=Maximal Assistance 6=Modified [place] 3=Moderate Assistance 7=Complete IndependenceIRFPAI Quality Coding Scale 6 Independent with activity with or without an assistive device 5 Patient requires set up or clean up by helper. Patient completes activity by themselves 4 Supervision or touching assist (CGA). [place] provide cues , steadying assist 3 The helper provides less than half the effort to complete the activity 2 The helper provides more than half the effort to complete the activity 1 Dependent. The helper does all the effort to complete an activity 7 Patient refused to complete or attempt activity 9 The patient did not perform the activity before the current illness or injury 88 Not attempted due to Medical conditions or safety concerns Grooming (FIM): 6 (washing hands) Oral Hygiene (QC): 6 Toileting (FIM): 6 Toileting Hygiene (QC): 6 Toilet/Commode Transfer (FIM): 6 Toilet Transfer (QC): 6 Skilled cues to push up from recliner, not pull up with walker Other Treatment Pt walked to commons area with FWW and no LOB. Got in and out of chair with arms with no difficulty. Pt did tabletop activity to strengthen arms (no additional weight due to shoulder discomfort) and to increase activity tolerance. Pt reported that she has not had to use oxygen today or over the weekend. Pt worked at steady pace and took breaks only to get a drink. Exercise to strengthen arms to help with getting up and down from chairs without arms. Pt walked back to room and got into bed without help. pt left up in bed, 3 rails up, all needs met. Education OT Patient Education: Purpose of tx/functional activities, Safety issues, Transfer techniques OT Short Term Goals Short Term Goals Time Frame: Dec 11, 2016 Lower Body Dressing(FIM): 5 Toileting(FIM): 4 1=Demonstrate adherence to instructed precautions during ADL tasks. 2=Patient will verbalize/demonstrate understanding of assistive devices/ modifications for ADL. 3=Patient will improve strength/tolerance for activity to enable patient to perform ADL's. OT Group Home Goals [employer] Goals Time Frame: Dec 25, 2016 Eating (FIM): 6 (Goal met 12-14-16) Eating (QC): 6 (Goal met 12-14-16) Groomin (Goal met 12-14-16) Oral Hygiene (QC): 6 (Goal met 12-14-16) Bathing(FIM): 6 (Goal met 12-14-16) Shower/Bathe Self (QC): 6 (Goal met 12-14-16) Upper Body Dressing(FIM): 6 (Goal met 12-14-16) Upper Body Dressing (QC): 6 (Goal met 12-14-16) Lower Body Dressing(FIM): 6 (Goal not met) Lower Body Dressing (QC): 6 (goal not met) On/Off Footwear (QC): 6 (goal not met) Toileting(FIM): 6 (Goal met 12-14-16) Toileting Hygiene (QC): 6 (Goal met 12-14-16) Toilet/Commode Transfer(FIM): 6 (Goal met 12-14-16) Toilet/Commode Transfer (QC): 6 (Goal met 12-14-16) Shower Transfer(FIM): 6 (Goal met 12-14-16) Additional Goals: 2-Verbalize Understanding, 3-ImproveStrength/[place]ari 1=Demonstrate adherence to instructed precautions during ADL tasks. 2=Patient will verbalize/demonstrate understanding of assistive devices/ modifications for ADL. 3=Patient will improve strength/tolerance for activity to enable patient to perform ADL's. OT Education/Plan Problem List/Assessment Pt was off the unit for two days for respiratory distress. She returned this morning and said she is ready to continue with therapy. We will continue with same treatment plan and goals. Discharge Recommendations Plan/Recommendations: Continue POC (anticipate DC to home tomorrow) Treatment Plan/Plan of Care Patient would benefit from OT for education, treatment and training to promote independence in ADL's, mobility, safety and/or upper extremity function for ADL' s. Plan of Care: ADL Retraining, Functional Mobility, Group Exercise/Act as Ind ( educ, exercise, activ tolerance, funct activities, socialization), UE Funct Exercise/Act, UE Neuromus Re-Ed/Coord Treatment Duration: Dec 25, 2016 Frequency: At least 5 of 7 days/Wk (IRF) Estimated Hrs Per Day: 1.5 hours per day Agreement: Yes Rehab Potential: Good Time/GCodes Start Time: 14:31 Stop Time: 15:01 Total Time Billed (hr/min): 30 Billed Treatment Time visit, 10 minutes funct activity, 20 minutes exercise AUSTEN PISANO OT Dec 14, 2016 15:26
--- NOTE | 2016-12-14 17:31 | PM & R (SOAP) Progress Note ---
Subjective Time Seen by Provider: 17:20 Subjective/Events-last exam Patient was seen in her room this AM Patient SBA to min assist for transfers Objective Exam Last Set of Vital Signs Vital Signs Date Time Temp Pulse Resp B/P (MAP) Pulse Ox O2 Delivery O2 Flow Rate FiO2 12/14/16 13:55 98 Room Air 12/14/16 09:15 98.4 78 20 114/62 12/11/16 08:40 1.00 Capillary Refill : Less Than 3 Seconds I&O Intake and Output 12/15/16 00:00 Intake Total 1380 ml Output Total 300 ml Balance 1080 ml Intake Oral 1280 ml IV Total 100 ml Output Stool Total 300 ml # Voids 9 # Bowel Movements 1 General: Alert, Oriented X3, Cooperative, No Acute Distress HEENT: Atraumatic, PERRLA, EOMI, Mucous Memb Moist/[place]: Supple, No JVD Lungs: Other (decreased breath sounds at base) Heart: Regular Rate Abdomen: Normal Bowel Sounds, Soft, No Tenderness, 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) Extremities: Other (trace pitting edema at ankles improved from prior assessment) Neuro: Other (generalized weakness) Results Lab Laboratory Tests 12/12/16 05:12: White Blood Count 10.9, Red Blood Count 3.23L, Hemoglobin 8.7L, Hematocrit 28L, Mean Corpuscular Volume 86, Mean Corpuscular Hemoglobin 27, Mean Corpuscular Hemoglobin Concent 31L, Red Cell Distribution Width 18.5H, Platelet Count 452H, Mean Platelet Volume 9.5, Sodium Level 134L, Potassium Level 4.0, Chloride Level 97L, Carbon Dioxide Level 29, Anion Gap 8, Blood Urea Nitrogen 15, Creatinine 0.72, Estimat Glomerular Filtration Rate > 60, BUN/Creatinine Ratio 21, Glucose Level 105, Calcium Level 8.0L, Magnesium Level 1.6L 12/14/16 09:09: White Blood Count 9.4, Red Blood Count 3.50L, Hemoglobin 9.5L, Hematocrit 30L, Mean Corpuscular Volume 86, Mean Corpuscular Hemoglobin 27, Mean Corpuscular Hemoglobin Concent 32, Red Cell Distribution Width 18.4H, Platelet Count 405H, Mean Platelet Volume 9.4 Assessment/Plan Assessment COPD myopathy Resp failure due to Presumed bilateral basilar pneumonia on IV antibiotcs 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 AYDEN TELLO MD Dec 14, 2016 17:31
[2016-12-14] MEDS ORDERED: APIX2.5T PO (17:36)
[2016-12-14] MEDS ORDERED: POTA10TA6 PO (17:36)
[2016-12-14] MEDS ORDERED: MICO90PO TOP (17:36)
[2016-12-14] MEDS ORDERED: FURO40TA4 PO (17:36)
[2016-12-14 18:15] VITALS: BP 123/69
[2016-12-15 06:03] LABS: MEAN PLATELET VOLUME 9.6 FL (7.4-10.4); RED BLOOD COUNT 3.44 10^6/uL (4.35-5.85); RED CELL DISTRIBUTION WIDTH 18.3 % (10.0-14.5); WHITE BLOOD COUNT 10.7 10^3/uL (4.3-11.0)
[2016-12-15] MEDS: KCL 10 MEQ TAB (MICRO K) PO SCH (06:07)
[2016-12-15 06:24] LABS: ANION GAP 11 MMOL/L (5-14); BLOOD UREA NITROGEN 12 MG/DL (7-18); BUN/CREATININE RATIO 17; CALCIUM 8.8 MG/DL (8.5-10.1); CARBON DIOXIDE 26 MMOL/L (21-32); CHLORIDE 99 MMOL/L (98-107); CREATININE SERUM 0.72 MG/DL (0.60-1.30); GFR ESTIMATED > 60; GLUCOSE 102 MG/DL (70-105); POTASSIUM 3.8 MMOL/L (3.6-5.0); SODIUM 136 MMOL/L (135-145)
[2016-12-15 06:41] VITALS: BP 126/67
[2016-12-15] MEDS ORDERED: KCL 10 MEQ TAB (MICRO K) PO SCH (07:00)
[2016-12-15] MEDS: RT-ALBUTEROL/IPRATROPIUM 3 ML (DUONEB) VIAL INH SCH (07:21)
[2016-12-15] MEDS: MAGIC MOUTHWASH (ADULT) PO SCH ×4 (07:42)
[2016-12-15] MEDS: SENNA W/DOCUSATE (SENOKOT S) TABLET PO SCH (07:42)
[2016-12-15] MEDS: MICONAZOLE 2% POWDER (DESENEX AF) 90 GM TOP SCH (07:42)
--- NOTE | 2016-12-15 08:10 | Therapy Team Discharge Summary ---
Therapy Discharge Summary Discharge Recommendations Date of Discharge Therapy D/C Recommendations: Physical Therapy Home Care Physical Therapy Patient will dismiss to home on this date with family and home health intervention. Patient has spent 5 weeks in hospital secondary to colon resection and fistula involvement with ileostomy. Patient upon initial evaluation, required minimal assist with functional mobility, bed mobility, transfers, ambulation FWW short distanced. Patient, upon dismissal, has met all functional goals and is modified independent with all gross motor skills safely. Patient will require a new FWW for home use and home health therapy to follow. Patient ambulates with FWW >200', however, does continue to fatigue with activity. Patient progress has been remarkable. Occupational Therapy Decreased Activ Tolerance, Decreased UE Strength, Dependent Transfers, Impaired Funct Balance, Impaired Self-Care Skills PT Probe Operator Goals Probe Operator Goals PT [facility] Goals Time Frame: Dec 25, 2016 Transfers (B,C,W/C) (FIM): 6 (met 12/14/16) Roll Left to Right (QC): 5 (met 12/14/16) Sit to Lying (QC): 5 (met ) Lying-Sitting on Side/Bed(QC): 5 (met 12/14/16) Sit to Stand (QC): 5 (met 12/14/16) Chair/Iea-dw-Cobca Xfer(QC): 5 (met 12/14/16) Car Transfer (QC): 5 (met 12/14/16) Does the Patient Walk: Yes Gait (FIM): 6 (met 12/14/16) Gait distance (FIM): 3=150 ft Distance: 300' Walk 10 feet (QC): 5 (met 12/14/16) Walk 10ft-Uneven Surface(QC): 5 (met 12/14/16) Walk 50ft with 2 Turns (QC): 5 (met 12/14/16) Walk 150 ft (QC): 5 (met 12/14/16) Gait Level of Assist: 6 (met 12/14/16) Gait Assistive Device: FWW Stairs (FIM): 5 (met 12/14/16) # of Steps: 12 1 Step (curb) (QC): 4 (met 12/14/16) 4 Steps (QC): 4 (met 12/14/16) 12 Steps (QC): 4 Stairs Level Of Assist: 5 (met ) Picking up an Object (QC): 5 (met 12/14/16) OT Probe Operator Goals [facility]ci Goals Time Frame: Dec 25, 2016 Eating (FIM): 6 (Goal met 12-14-16) Eating (QC): 6 (Goal met 12-14-16) Oral Hygiene (QC): 6 (Goal met 12-14-16) Grooming(FIM): 6 (Goal met 12-14-16) Bathing(FIM): 6 (Goal met 12-14-16) Shower/Bathe Self (QC): 6 (Goal met 12-14-16) Upper Body Dressing(FIM): 6 (Goal met 12-14-16) Upper Body Dressing (QC): 6 (Goal met 12-14-16) Lower Body Dressing(FIM): 6 (Goal not met) Lower Body Dressing (QC): 6 (goal not met) On/Off Footwear (QC): 6 (goal not met) Toileting(FIM): 6 (Goal met 12-14-16) Toileting Hygiene (QC): 6 (Goal met 12-14-16) Toilet/Commode Transfer(FIM): 6 (Goal met 12-14-16) Toilet/Commode Transfer (QC): 6 (Goal met 12-14-16) Shower Transfer(FIM): 6 (Goal met 12-14-16) Additional Goals: 2-Verbalize Understanding, 3-ImproveStrength/Shari 1=Demonstrate adherence to instructed precautions during ADL tasks. 2=Patient will verbalize/demonstrate understanding of assistive devices/ modifications for ADL. 3=Patient will improve strength/tolerance for activity to enable patient to perform ADL's. MICHELLE ROLLINS PT Dec 15, 2016 08:10
--- NOTE | 2016-12-15 08:10 | PM & R (SOAP) Progress Note ---
Subjective Time Seen by Provider: 07:45 Subjective/Events-last exam Patient was seen in her room this AM All set for discharge Has progressed well Objective Exam Last Set of Vital Signs Vital Signs Date Time Temp Pulse Resp B/P (MAP) Pulse Ox O2 Delivery O2 Flow Rate FiO2 12/15/16 07:21 94 Room Air 12/15/16 06:41 99.3 69 18 126/67 12/11/16 08:40 1.00 Capillary Refill : Less Than 3 Seconds I&O Intake and Output 12/15/16 23:59 Intake Total 300 ml Output Total 75 ml Balance 225 ml Intake Oral 300 ml Output Stool Total 75 ml # Voids 2 General: Alert, Oriented X3, Cooperative, No Acute Distress HEENT: Atraumatic, PERRLA, EOMI, Mucous Memb Moist/[place]: Supple, No JVD Lungs: Other (decreased breath sounds at base) Heart: Regular Rate Abdomen: Normal Bowel Sounds, Soft, No Tenderness, 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) Extremities: Other (trace pitting edema at ankles improved from prior assessment) Neuro: Other (generalized weakness) Results Lab Laboratory Tests 12/14/16 09:09: White Blood Count 9.4, Red Blood Count 3.50L, Hemoglobin 9.5L, Hematocrit 30L, Mean Corpuscular Volume 86, Mean Corpuscular Hemoglobin 27, Mean Corpuscular Hemoglobin Concent 32, Red Cell Distribution Width 18.4H, Platelet Count 405H, Mean Platelet Volume 9.4 12/15/16 05:45: White Blood Count 10.7, Red Blood Count 3.44L, Hemoglobin 9.3L, Hematocrit 29L, Mean Corpuscular Volume 86, Mean Corpuscular Hemoglobin 27, Mean Corpuscular Hemoglobin Concent 32, Red Cell Distribution Width 18.3H, Platelet Count 330, Mean Platelet Volume 9.6, Sodium Level 136, Potassium Level 3.8, Chloride Level 99, Carbon Dioxide Level 26, Anion Gap 11, Blood Urea Nitrogen 12, Creatinine 0.72, Estimat Glomerular Filtration Rate > 60, BUN/Creatinine Ratio 17, Glucose Level 102, Calcium Level 8.8 Assessment/Plan Assessment COPD myopathy Resp failure due to Presumed bilateral basilar pneumonia on IV antibiotcs 02 dependency -now weaned Plan Discharge today to home with family F/U with PCP and DR Gaston See orders. AYDEN TELLO MD Dec 15, 2016 08:10
[2016-12-15] MEDS: meTOprolol SUCCINATE 100 MG (TOPROL XL) TAB PO SCH (08:13)
[2016-12-15] MEDS: APIXABAN 2.5 MG (ELIQUIS) TABLET PO SCH (08:13)
[2016-12-15] MEDS: FUROSEMIDE 40 MG (LASIX) TAB PO SCH (08:13)
--- NOTE | 2016-12-15 08:39 | Therapy Team Discharge Summary ---
Therapy Discharge Summary Discharge Recommendations Date of Discharge Therapy D/C Recommendations: Occupational Therapy Home Care, Physical Therapy Home Care Occupational Therapy Pt seen for skilled OT to increase her independence in basic self care to allow her to safely return to her home after surgery and respiratory distress. Treatment was interrupted by a couple days in ICU for respiratory distress. On admission she needed no help with eating; setup for grooming and upper body dressing; min assist with bathing and toilet/shower transfers; mod assist for lower body dressing and max assist with toileting. By discharge she was modified independent or independent with eating, grooming, bathing, upper body dressing, toileting and setup for lower body dressing. Equipment used included long handled sponge, dressing stick, sock aid, FWW, shower bench, grab bars, hand held shower, BSC. See tx plan for goals met. Home health OT is recommended. DC OT Decreased Activ Tolerance, Decreased UE Strength, Dependent Transfers, Impaired Funct Balance, Impaired Self-Care Skills PT Fci Goals Fci Goals PT [facility]ci Goals Time Frame: Dec 25, 2016 Transfers (B,C,W/C) (FIM): 6 (met 12/14/16) Roll Left to Right (QC): 5 (met 12/14/16) Sit to Lying (QC): 5 (met ) Lying-Sitting on Side/Bed(QC): 5 (met 12/14/16) Sit to Stand (QC): 5 (met 12/14/16) Chair/Mby-xa-Uhqjy Xfer(QC): 5 (met 12/14/16) Car Transfer (QC): 5 (met 12/14/16) Does the Patient Walk: Yes Gait (FIM): 6 (met 12/14/16) Gait distance (FIM): 3=150 ft Distance: 300' Walk 10 feet (QC): 5 (met 12/14/16) Walk 10ft-Uneven Surface(QC): 5 (met 12/14/16) Walk 50ft with 2 Turns (QC): 5 (met 12/14/16) Walk 150 ft (QC): 5 (met 12/14/16) Gait Level of Assist: 6 (met 12/14/16) Gait Assistive Device: FWW Stairs (FIM): 5 (met 12/14/16) # of Steps: 12 1 Step (curb) (QC): 4 (met 12/14/16) 4 Steps (QC): 4 (met 12/14/16) 12 Steps (QC): 4 Stairs Level Of Assist: 5 (met ) Picking up an Object (QC): 5 (met 12/14/16) OT Safety Teacher Goals Fci Goals Time Frame: Dec 25, 2016 Eating (FIM): 6 (Goal met 12-14-16) Eating (QC): 6 (Goal met 12-14-16) Oral Hygiene (QC): 6 (Goal met 12-14-16) Grooming(FIM): 6 (Goal met 12-14-16) Bathing(FIM): 6 (Goal met 12-14-16) Shower/Bathe Self (QC): 6 (Goal met 12-14-16) Upper Body Dressing(FIM): 6 (Goal met 12-14-16) Upper Body Dressing (QC): 6 (Goal met 12-14-16) Lower Body Dressing(FIM): 6 (Goal not met) Lower Body Dressing (QC): 6 (goal not met) On/Off Footwear (QC): 6 (goal not met) Toileting(FIM): 6 (Goal met 12-14-16) Toileting Hygiene (QC): 6 (Goal met 12-14-16) Toilet/Commode Transfer(FIM): 6 (Goal met 12-14-16) Toilet/Commode Transfer (QC): 6 (Goal met 12-14-16) Shower Transfer(FIM): 6 (Goal met 12-14-16) Additional Goals: 2-Verbalize Understanding, 3-ImproveStrength/Shari 1=Demonstrate adherence to instructed precautions during ADL tasks. 2=Patient will verbalize/demonstrate understanding of assistive devices/ modifications for ADL. 3=Patient will improve strength/tolerance for activity to enable patient to perform ADL's. AUSTEN PISANO OT Dec 15, 2016 08:39
--- NOTE | 2016-12-15 10:18 | Progress Note-Cardiology ---
Cardiology SOAP Progress Note Subjective: In bed. States she feels well today. No c/o CP, palpitations, syncope, near syncope, dyspnea or LE edema. States she is going home today. Objective: I&O/Vital Signs Vital Sign - Last 12Hours 12/15/16 12/15/16 12/15/16 06:41 07:21 08:24 Temp 99.3 Pulse 69 Resp 18 B/P (MAP) 126/67 Pulse Ox 96 94 O2 Delivery Room Air Room Air Room Air Weight (Pounds): 171 Weight (Ounces): 4.0 Weight (Calculated Kilograms): 77.007085 Constitutional: AAO x 3 Respiratory: No accessory muscle use, other (diminished bases bilat; good air entry) Cardiovascular: regular rate-rhythm, S1 and S2, systolic murmur Gastrointestional: round, other (ileostomy) Extremities: significant edema (mild pedal edema) Neurologic/Psychiatric: grossly intact Skin: No ulcerations, No rash on exposed areas Results/Procedures: Labs Laboratory Tests 12/15/16 05:45: White Blood Count 10.7, Red Blood Count 3.44L, Hemoglobin 9.3L, Hematocrit 29L, Mean Corpuscular Volume 86, Mean Corpuscular Hemoglobin 27, Mean Corpuscular Hemoglobin Concent 32, Red Cell Distribution Width 18.3H, Platelet Count 330, Mean Platelet Volume 9.6, Sodium Level 136, Potassium Level 3.8, Chloride Level 99, Carbon Dioxide Level 26, Anion Gap 11, Blood Urea Nitrogen 12, Creatinine 0.72, Estimat Glomerular Filtration Rate > 60, BUN/Creatinine Ratio 17, Glucose Level 102, Calcium Level 8.8 Laboratory Tests 12/14/16 09:09 12/15/16 05:45 A/P: Assessment: Gen anasarca; probably related to hypoproteinemia and/or diastolic CHF and/or post-op volume overload - resolved Echo of 12/01/16: LVEF 60-65%, PASP 40-45 mmHg PAF documented during hosp of early Dec 2014. 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 Gaston Small anastomotic leak with air in the adjacent mesenteric fat and along the adjacent fistula tract to the skin in the right lower quadrant per CT of 12-07-17 Elevated BMI of approx 43 No evidence of ischemia or infarction on MPI of 12/11/14; LVEF was 74% H/o hypertension Anemia - transfusion per medical/surgical services; continues to decline Thrombocytosis - gradually improving Plan: Complex management due to multiple comorbidities Continue current medications OAC with Eliquis already resumed since H/H has remained stable and no further surgery is pending at this time OK to discharge home today BMP, Mag and CBC in a week F/U as out pt in 2 weeks ARIS TRINIDAD Dec 15, 2016 10:18
== END 2016-12-15 12:45 | disposition home health service (06) | DRG 91 ==
PROVIDERS: ADMIT Physical Medicine & Rehabilitation; ATTEND Physical Medicine & Rehabilitation
DX: G72.89 Other specified myopathies (principal); Z48.3 Aftercare following surgery for neoplasm; Z85.038 Personal history of other malignant neoplasm of large intestine; Z90.49 Acquired absence of other specified parts of digestive tract; T81.83XD Persistent postprocedural fistula, subsequent encounter; J18.9 Pneumonia, unspecified organism; J96.01 Acute respiratory failure with hypoxia; J98.11 Atelectasis; D64.9 Anemia, unspecified; K56.7 Ileus, unspecified; E46 Unspecified protein-calorie malnutrition; R60.1 Generalized edema; E88.09 Other disorders of plasma-protein metabolism, not elsewhere classified; I10 Essential (primary) hypertension; I48.0 Paroxysmal atrial fibrillation; Z99.81 Dependence on supplemental oxygen; Z23 Encounter for immunization
CPT/HCPCS: 36415; 80048; 80053; 82805; 83735; 83880; 84100; 84484; 85007; 85027; 94640; 94660; 94760

== ENCOUNTER → 2016-12-24 | Outpatient (CLI) | payer MEDICARE ==
[~2016-12-24] MED LIST changes: +APIX2.5T PO; +FURO40TA4 PO; +MICO90PO TOP; +POTA10TA6 PO
[2016-12-24 13:25] LABS: BASOPHILS % (AUTO) 0 % (0-10); EOSINOPHILS # (AUTO) 0.3 10^3/uL (0.0-0.3); EOSINOPHILS % (AUTO) 3 % (0-10); LYMPHOCYTES # (AUTO) 1.4 X 10^3 (1.0-4.0); LYMPHOCYTES % (AUTO) 14 % (12-44); MEAN CORPUSCULAR HEMOGLOBIN 26 PG (25-34); MEAN CORPUSCULAR HGB CONC 31 G/DL (32-36); MEAN CORPUSCULAR VOLUME 85 FL (80-99); MONOCYTES # (AUTO) 0.9 X 10^3 (0.0-1.0); MONOCYTES % (AUTO) 9 % (0-12); NEUTROPHILS # (AUTO) 7.5 X 10^3 (1.8-7.8); NEUTROPHILS % (AUTO) 74 % (42-75); PLATELET COUNT 360 10^3/uL (130-400); RED BLOOD COUNT 3.48 10^6/uL (4.35-5.85); RED CELL DISTRIBUTION WIDTH 17.9 % (10.0-14.5); WHITE BLOOD COUNT 10.1 10^3/uL (4.3-11.0)
[2016-12-24 13:33] LABS: CALCIUM 9.5 MG/DL (8.5-10.1); CREATININE SERUM 0.95 MG/DL (0.60-1.30); MAGNESIUM 1.6 MG/DL (1.8-2.4); POTASSIUM 4.1 MMOL/L (3.6-5.0)
== END ==
LOC: HH 12:20
PROVIDERS: ATTEND Internal Medicine
DX: D64.9 Anemia, unspecified (principal); I50.9 Heart failure, unspecified
CPT/HCPCS: 80048; 83735; 85025

== ENCOUNTER 2016-12-31 14:40 | Outpatient (RCR) | payer MEDICARE ==
[~2016-12-31 14:40] MED LIST changes: +BENZ-36 PO; -BENZ100C23 PO; -METO-270 PO; -METO-274 PO; +METO-387 PO; +METO-395 PO
== END 2017-03-04 09:40 | disposition home or self-care (01) ==
LOC: ONC 14:40
PROVIDERS: ATTEND Internal Medicine Hematology & Oncology
DX: C18.2 Malignant neoplasm of ascending colon (principal); I48.0 Paroxysmal atrial fibrillation; I10 Essential (primary) hypertension; J45.909 Unspecified asthma, uncomplicated; R53.83 Other fatigue; R06.02 Shortness of breath; E66.9 Obesity, unspecified; Z68.32 Body mass index [BMI] 32.0-32.9, adult; Z79.899 Other long term (current) drug therapy
CPT/HCPCS: 99214

== ENCOUNTER → 2017-02-17 | Outpatient (CLI) | payer MEDICARE ==
--- NOTE | 2017-02-18 13:19 | Diagnostic Imaging Report ---
Bilateral screening mammogram 2D views with tomosynthesis. The current study was also evaluated with a Computer Aided Detection (CAD) system. INDICATION: Screening. No current complaints stated on the questionnaire. COMPARISON: 03/03/16 FINDINGS: The breasts are composed of scattered fibroglandular densities. Scattered benign-appearing calcifications are seen. There is a biopsy clip in the outer aspect of the left breast. Allowing for technique and positional differences, no suspicious change is seen. IMPRESSION: No significant change. ACR BI-RADS Category 2: Benign findings. Result letter will be mailed to the patient. Note: At least 10% of breast cancer is not imaged by mammography. Dictated by: Dictated on workstation # [id number]
== END ==
LOC: RAD 08:42
PROVIDERS: ATTEND Internal Medicine
DX: Z12.31 Encounter for screening mammogram for malignant neoplasm of breast (principal)
CPT/HCPCS: 77067

== ENCOUNTER → 2017-06-17 | Outpatient (CLI) | payer MEDICARE ==
--- NOTE | 2017-06-17 08:41 | Diagnostic Imaging Report ---
PROCEDURE: CT abdomen without contrast. TECHNIQUE: Multiple contiguous axial images were obtained through the abdomen without the use of intravenous contrast. INDICATION: Prior colon surgery in October 2016. Patient now complains of left lower abdominal pain. Comparison is made with prior CT from 12/06/2016. FINDINGS: Previously seen bilateral pleural effusions and bibasilar consolidation has resolved. No discrete liver mass is identified. The gallbladder is surgically absent. The pancreas and spleen are unremarkable. No adrenal mass is seen. The right kidney is unremarkable. Left kidney contains a nonobstructing calculus in the lower pole, similar to prior exam. The aorta is heavily calcified but nonaneurysmal. Postsurgical changes involving the right colon is seen. Patient does have a right-sided abdominal wall hernia, lateral to the right rectus musculature this appears to be at the location of patient's prior ostomy. Small and large bowel loops protrude into the subcutaneous tissues. No bowel obstruction is seen. There is no free fluid or fluid collection. There does appear to be colonic diverticulosis but no evidence of acute diverticulitis. IMPRESSION: 1. Right-sided abdominal wall hernia containing small bowel loops located just lateral to the right rectus musculature at the site of previous ostomy. No bowel obstruction is identified. 2. Diverticulosis without evidence of acute diverticulitis. Dictated by: Dictated on workstation # [id number]
== END ==
LOC: RAD 07:10
PROVIDERS: ATTEND Internal Medicine
DX: K43.9 Ventral hernia without obstruction or gangrene (principal); K57.90 Diverticulosis of intestine, part unspecified, without perforation or abscess without bleeding; Z98.890 Other specified postprocedural states
CPT/HCPCS: 74150

== ENCOUNTER 2017-07-12 10:13 | Outpatient (CLI) | payer MEDICARE ==
[~2017-07-12] VITALS: Ht 157.5 cm; Wt 78.5 kg
[2017-07-12] MEDS ORDERED: APIX2.5T PO (14:49)
[2017-07-15] MEDS ORDERED: HYDR-34 PO (11:14)
== END 2017-07-12 14:55 ==
LOC: PREOP 10:13
PROVIDERS: ATTEND Surgery
DX: Z01.818 Encounter for other preprocedural examination (principal); K43.2 Incisional hernia without obstruction or gangrene; K43.9 Ventral hernia without obstruction or gangrene

== ENCOUNTER 2017-09-29 10:24 | Outpatient (RCR) | payer MEDICARE ==
[2017-09-29 10:19] LABS: BASOPHILS % (AUTO) 0 % (0-10); EOSINOPHILS # (AUTO) 0.4 10^3/uL (0.0-0.3); EOSINOPHILS % (AUTO) 4 % (0-10); HEMATOCRIT 37 % (35-52); LYMPHOCYTES # (AUTO) 1.7 X 10^3 (1.0-4.0); LYMPHOCYTES % (AUTO) 20 % (12-44); MEAN CORPUSCULAR HEMOGLOBIN 30 PG (25-34); MEAN CORPUSCULAR HGB CONC 32 G/DL (32-36); MEAN CORPUSCULAR VOLUME 92 FL (80-99); MEAN PLATELET VOLUME 9.4 FL (7.4-10.4); MONOCYTES # (AUTO) 0.9 X 10^3 (0.0-1.0); MONOCYTES % (AUTO) 10 % (0-12); NEUTROPHILS # (AUTO) 5.5 X 10^3 (1.8-7.8); NEUTROPHILS % (AUTO) 65 % (42-75); PLATELET COUNT 274 10^3/uL (130-400); RED BLOOD COUNT 4.03 10^6/uL (4.35-5.85); WHITE BLOOD COUNT 8.5 10^3/uL (4.3-11.0)
[~2017-09-29 10:24] MED LIST changes: -AMLO10TA2 PO; +AMLO10TA6 PO; -AMLO5TAB2 PO; +AMLO5TAB7 PO; +HYDR-34 PO; -LOSA50TA36 PO; +LOSA50TA7 PO
[2017-09-29 10:38] LABS: BILIRUBIN,TOTAL 0.4 MG/DL (0.1-1.0); CALCIUM 9.5 MG/DL (8.5-10.1); CREATININE SERUM 1.02 MG/DL (0.60-1.30); POTASSIUM 4.5 MMOL/L (3.6-5.0); TOTAL PROTEIN 7.3 GM/DL (6.4-8.2)
== END 2017-10-05 | disposition home or self-care (01) ==
LOC: ONC 10:24
PROVIDERS: ATTEND Internal Medicine Hematology & Oncology
DX: C18.2 Malignant neoplasm of ascending colon (principal); I48.0 Paroxysmal atrial fibrillation; I10 Essential (primary) hypertension; J45.909 Unspecified asthma, uncomplicated; R53.83 Other fatigue; R06.02 Shortness of breath; E66.9 Obesity, unspecified; Z68.32 Body mass index [BMI] 32.0-32.9, adult; Z79.899 Other long term (current) drug therapy
CPT/HCPCS: 36415; 80053; 82378; 85025; 99213

== ENCOUNTER 2018-01-12 09:16 | Outpatient (RCR) | payer MEDICARE ==
[~2018-01-12 09:16] MED LIST changes: -AMLO10TA6 PO; +AMLO10TA7 PO; -AMLO5TAB7 PO; +AMLO5TAB9 PO; +LOSA50TA63 PO; -LOSA50TA7 PO
[2018-01-12 09:31] LABS: BASOPHILS % (AUTO) 0 % (0-10); EOSINOPHILS # (AUTO) 0.3 10^3/uL (0.0-0.3); EOSINOPHILS % (AUTO) 4 % (0-10); HEMATOCRIT 39 % (35-52); HEMOGLOBIN 12.7 G/DL (11.5-16.0); LYMPHOCYTES # (AUTO) 1.3 X 10^3 (1.0-4.0); LYMPHOCYTES % (AUTO) 19 % (12-44); MEAN CORPUSCULAR HEMOGLOBIN 31 PG (25-34); MEAN CORPUSCULAR HGB CONC 33 G/DL (32-36); MEAN CORPUSCULAR VOLUME 94 FL (80-99); MEAN PLATELET VOLUME 9.2 FL (7.4-10.4); MONOCYTES # (AUTO) 0.8 X 10^3 (0.0-1.0); MONOCYTES % (AUTO) 11 % (0-12); NEUTROPHILS # (AUTO) 4.5 X 10^3 (1.8-7.8); NEUTROPHILS % (AUTO) 65 % (42-75); PLATELET COUNT 225 10^3/uL (130-400); RED CELL DISTRIBUTION WIDTH 14.9 % (10.0-14.5)
[2018-01-12 09:58] LABS: BILIRUBIN,TOTAL 0.3 MG/DL (0.1-1.0); CALCIUM 9.3 MG/DL (8.5-10.1); CREATININE SERUM 1.01 MG/DL (0.60-1.30); POTASSIUM 4.8 MMOL/L (3.6-5.0); TOTAL PROTEIN 6.8 GM/DL (6.4-8.2)
== END 2018-04-12 | disposition home or self-care (01) ==
LOC: ONC 09:16
PROVIDERS: ATTEND Internal Medicine Hematology & Oncology
DX: C18.2 Malignant neoplasm of ascending colon (principal); I48.0 Paroxysmal atrial fibrillation; I10 Essential (primary) hypertension; J45.909 Unspecified asthma, uncomplicated; R53.83 Other fatigue; R06.02 Shortness of breath; E66.9 Obesity, unspecified; Z68.32 Body mass index [BMI] 32.0-32.9, adult; Z79.899 Other long term (current) drug therapy
CPT/HCPCS: 36415; 80053; 82378; 85025; 99213

== ENCOUNTER 2018-01-25 09:15 | Outpatient (CLI) | payer MEDICARE ==
[~2018-01-25] VITALS: Ht 157.5 cm; Wt 78.5 kg
[~2018-01-25 09:15] MED LIST changes: +AMLO10TA6 PO; -AMLO10TA7 PO; +AMLO5TAB7 PO; -AMLO5TAB9 PO; -LOSA50TA63 PO; +LOSA50TA7 PO
== END 2018-01-25 09:53 | disposition home or self-care (01) ==
LOC: PREOP 09:15
PROVIDERS: ATTEND Surgery
DX: Z01.818 Encounter for other preprocedural examination (principal)

== ENCOUNTER 2018-01-26 08:58 | Day surgery (SDC) | payer MEDICARE ==
[~2018-01-26] VITALS: Ht 157.5 cm; Wt 78.5 kg
[2018-01-26] MEDS ORDERED: NS IV 500 ML 500 ML IV PRN (09:20)
[2018-01-26] MEDS ORDERED: LIDOCAINE JELLY 2% 6 ML SYRINGE MM PRN (09:30)
[2018-01-26] MEDS ORDERED: MIDAZOLAM 2 MG/2 ML (VERSED) VIAL IVP ONE (09:30)
[2018-01-26] MEDS ORDERED: fentaNYL INJECTION 100 MCG/2 ML AMP IVP ONE (09:30)
[2018-01-26] MEDS ORDERED: MIDAZOLAM 2 MG/2 ML (VERSED) VIAL ONE ×3 (09:42)
[2018-01-26] MEDS ORDERED: fentaNYL INJECTION 100 MCG/2 ML AMP ONE (09:42)
[2018-01-26] MEDS ORDERED: LIDOCAINE JELLY 2% 6 ML SYRINGE ONE (09:42)
[2018-01-26] MEDS ORDERED: LIDOCAINE 2% 20 ML (XYLOCAINE) VIAL ONE (09:47)
[2018-01-26 10:02] VITALS: BP 186/77
[2018-01-26 10:40] VITALS: BP 179/74
--- NOTE | 2018-01-26 10:42 | Conscious Sedation/ASA ---
Conscious Sedation Pre-Proced Time 09:30 ASA Score 2 For ASA 3 and 4: Consider anesthesia and medical clearance. Also, for patients with a history of failed moderate sedation consider anesthesia. Airway Lungs Heart ASA score ASA 1: a normal healthy patient ASA 2: a patient with a mild systemic disease (mid diabetes, controlled hypertension, obesity ASA 3: a patient with a severe systemic disease that limits activity (angina , COPD, prior Myocardial infarction) ASA 4: a patient with an incapacitating disease that is a constant threat to life (CHF, renal failure) ASA 5: a moribund patient not expected to survive 24 hrs. (ruptured aneurysm) ASA 6: a declared brain patient whose organs are being harvested. For emergent operations, add the letter E after the classification Mallampati Classification Grade 2 Sedation Plan Analgesia, Amnesia, Plan communicated to team members, Discussed options with patient/fam, Discussed risks with patient/fam The patient is an appropriate candidate to undergo the planned procedure, sedation, and anesthesia. The patient immediately re-assessed prior to indication. STEPHANY ALY MD Jan 26, 2018 10:42 am
--- NOTE | 2018-01-26 10:43 | Progress Note-Pre Operative ---
Pre-Operative Progress Note H&P Reviewed The H&P was reviewed, patient examined and no changes noted. Date Seen by Provider: Jan 26, 2018 Time Seen by Provider: : Date H&P Reviewed: Jan 26, 2018 Time H&P Reviewed: :30 Pre-Operative Diagnosis: hx colon cancer, sx skin lesion left lateral abdomen( 1.5cm) STEPHANY ALY MD Jan 26, 2018 10:43 am
--- NOTE | 2018-01-26 10:46 | Progress Note-Post Operative ---
Post-Operative Progess Note Surgeon (s)/Spectral Scientist (s) Surgeon STEPHANY ALY MD Spectral Scientist: none Pre-Operative Diagnosis hx colon cancer, sx skin lesion left lateral abdomen(1.5cm) Post-Operative Diagnosis chronic stage 2 ext and int hemorrhoids, moderate sigmoid and desc colon diverticulosis, sx skin lesion left lateral abdomen(1.5cm). Procedure & Operative Findings Date of Procedure 01/26/18 Procedure Performed/Findings Colonoscopy. excision skin lesion left abdomen 2cm. Anesthesia Type CS with local Estimated Blood Loss Estimated blood loss (mL): minimal Specimens/Packing Specimens Removed skin lesion abd wall STEPHANY ALY MD Jan 26, 2018 10:46 am
--- NOTE | 2018-01-26 10:51 | Discharge Inst-Surgical ---
D/C Lap Instructions-JERMAIN Follow Up Appt in 1 week Activity as tolerated keep wound clean/dry High Fiber Diet 25g or more per day Avoid Alcohol, Caffeine, Spicy [place] and Acid foods. Drink 64 fluid oz or more of fluids per day. Symptoms to Report: Fever over 101 degree F, Nausea/Vomiting If any problems/questions: Contact your physician or go to Emergency Room STEPHANY ALY MD Jan 26, 2018 10:51 am
[2018-01-26] MEDS ORDERED: HYDROcodone/APAP 5 MG/325 MG (LORTAB) TAB PO PRN (11:00)
[2018-01-26] MEDS ORDERED: morphine INJ 10 MG/ML 1ML (SYR OR VIAL) IV PRN (11:00)
[2018-01-26] MEDS ORDERED: ONDANSETRON 4 MG/2 ML (SDV) Z0FRAN IV PRN (11:00)
[2018-01-26] MEDS ORDERED: ACETAMINOPHEN 325 MG TABLET PO PRN (11:00)
[2018-01-26 11:10] VITALS: BP 133/72
[2018-01-26 11:28] VITALS: BP 133/72
--- NOTE | 2018-01-26 16:22 | OPERATIVE REPORT ---
DATE OF SERVICE: 01/26/2018 ATTENDING PRIMARY CARE PHYSICIAN: Dr. Winter Rose. PREOPERATIVE DIAGNOSES: History of a ascending colonic poorly differentiated adenocarcinoma, symptomatic skin lesion of left lateral abdomen, 1.5 cm in size. POSTOPERATIVE DIAGNOSES: Mild chronic stage II external and internal hemorrhoids, moderate sigmoid diverticulosis, and normal ileocolic anastomosis. Skin lesion raised hyperkeratotic and hyperpigmented, approximately 1.5 cm in size. PROCEDURES PERFORMED: Colonoscopy, excision of skin lesion approximately 2 cm in size with gross margins. SURGEON: Stephany Gaston MD. ANESTHESIA: Conscious sedation with local. ESTIMATED BLOOD LOSS: Minimal. FINDINGS: Colonoscopy, mild chronic stage II external and internal hemorrhoids, not actively edematous nor inflamed and no bleeding. There was a moderate sigmoid and descending colonic diverticulosis with some impacted stools within the diverticula; however, no mucosal inflammatory changes to indicate any diverticulitis. The ileocolonic anastomosis appeared normal with no recurrent tumors. DISPOSITION: The patient tolerated the procedure well. INDICATIONS: The patient is an 82-year-old female, known to us. She was referred to us for a biopsy-proven ascending colonic poorly differentiated adenocarcinoma on 11/07/2016. On 11/20/2016, she underwent a laparoscopic right hemicolectomy with no obvious lymphadenopathy or peritoneal carcinomatosis. Pathology report came back as a moderate to poorly differentiated colonic adenocarcinoma extending through the muscularis propria into the superficial subserosal tissue with 14 lymph nodes negative for malignancy, making this a T3 N0 M0 tumor. During her postoperative course, she did develop drainage out of her largest laparoscopic incision and she was found to have a fistula. We treated this conservatively and this did heal on its own. In 06/2017, she did develop pain and a bulge in incision site as well as the fistula site and she underwent a repair of the hernia in 06/2017. She is now in need of a followup colonoscopy. She reports that for the most part, her bowel movements are normal. She does not report any red blood per rectum nor any dark tarry stools. She also does have a symptomatic skin lesion that has been on her left lateral abdomen for greater than 10 years; however, states that has change in color over time. The lesion is raised hyperkeratotic and hyperpigmented, approximately 1.5 cm in size. DESCRIPTION OF PROCEDURE: The patient was brought to the endoscopy suite, laid in the left lateral decubitus position. After adequate IV pain and sedating medications and conscious sedation anesthesia, a digital rectal examination was performed. Mild chronic stage II external and internal hemorrhoids were identified, which were not actively edematous or inflamed and no bleeding. Normal sphincter tone was felt and there are no palpable masses. The endoscope was then intubated to the anus and rectum gently insufflated. The endoscope was then advanced to the valves of [place] of the rectum with no polyps or neoplasms identified. Through the sigmoid colon, a moderate sigmoid diverticulosis identified. This did extend into the descending colon as well. There was some impacted stool within some of the diverticula; however, there were no mucosal inflammatory changes to indicate any active diverticulitis. The endoscope was then advanced to the remainder of the transverse colon to the ileocolonic anastomosis, which appeared normal with no recurrent tumors. The endoscope was then slowly withdrawn with taking a second look and suctioning of residual air with no additional findings. The patient tolerated this portion of the procedure well. We will recommend a high fiber diet with at least 30 grams of fiber per day to promote soft stools on a daily basis. It appears that she still does have slightly harder stools and we will recommend, due to this and her diverticulosis, to increase the amount of fiber and water in her diet as well as to avoid [place] seeds and nuts unless her stools are soft on a regular everyday basis. We will also recommend a followup colonoscopy in one year. Under the same conscious sedation anesthesia, left lateral abdomen was prepped and draped in standard surgical fashion. A 2% lidocaine was used to anesthetize the overlying the skin lesion. The lesion was then fully excised with gross margins with a total excised diameter approximately 2 cm in size using a 15-blade. Good hemostasis was achieved with direct pressure and the skin edges were then approximated using 4-0 nylon in running suture. Wound was then cleaned and covered with sterile gauze. The patient tolerated the procedure well. We will have followup in office in approximately one week to discuss the colonoscopy and pathology report of the skin lesion and remove the sutures. CC: Dr. Corral (distribution did not occur). Job ID: [id number] DocumentID: [id number] Dictated Date: 01/26/2018 10:35:33 Waste Disposal Leakage Tester Date: 01/26/2018 16:22:17 Dictated By: STEPHANY GASTON MD [facility] CENTERSuleiman
== END 2018-01-26 11:28 | disposition home or self-care (01) ==
LOC: ENDO 08:58
PROVIDERS: ATTEND Surgery
DX: Z09 Encounter for follow-up examination after completed treatment for conditions other than malignant neoplasm (principal); K57.30 Diverticulosis of large intestine without perforation or abscess without bleeding; Z85.038 Personal history of other malignant neoplasm of large intestine; K64.1 Second degree hemorrhoids; L82.1 Other seborrheic keratosis; I10 Essential (primary) hypertension; J45.909 Unspecified asthma, uncomplicated; I25.10 Atherosclerotic heart disease of native coronary artery without angina pectoris; Z88.0 Allergy status to penicillin; Z88.2 Allergy status to sulfonamides; Z79.899 Other long term (current) drug therapy; Z79.01 Long term (current) use of anticoagulants
CPT/HCPCS: 88305

== ENCOUNTER → 2018-02-21 | Outpatient (CLI) | payer MEDICARE ==
--- NOTE | 2018-02-21 22:05 | Diagnostic Imaging Report ---
INDICATION: Routine screening. Comparison is made with prior mammograms from 02/17/2017 and 03/03/2016. 2-D and 3-D bilateral screening mammography was performed with computer-aided detection (CAD) system. FINDINGS: Both breasts are heterogeneously dense, limiting the sensitivity of mammography. There are benign calcifications bilaterally. Biopsy clip in the outer left breast is again noted. No dominant mass or malignant-appearing microcalcifications are seen. The axillae are unremarkable. IMPRESSION: No mammographic features suspicious for malignancy are identified. ACR BI-RADS Category 2: Benign findings. Result letter will be mailed to the patient. Note: At least 10% of breast cancer is not imaged by mammography. Dictated by: Dictated on workstation # [id number]
== END ==
LOC: RAD 09:22
PROVIDERS: ATTEND Nurse Practitioner
DX: Z12.31 Encounter for screening mammogram for malignant neoplasm of breast (principal)
CPT/HCPCS: 77067

== ENCOUNTER 2018-05-11 08:52 | Outpatient (RCR) | payer MEDICARE ==
[~2018-05-11 08:52] MED LIST changes: -AMLO10TA6 PO; +AMLO10TA7 PO; -AMLO5TAB7 PO; +AMLO5TAB9 PO; +LOSA50TA63 PO; -LOSA50TA7 PO
[2018-05-11 09:25] LABS: BASOPHILS % (AUTO) 0 % (0-10); EOSINOPHILS # (AUTO) 0.2 10^3/uL (0.0-0.3); EOSINOPHILS % (AUTO) 2 % (0-10); HEMATOCRIT 40 % (35-52); HEMOGLOBIN 12.7 G/DL (11.5-16.0); LYMPHOCYTES # (AUTO) 1.3 X 10^3 (1.0-4.0); LYMPHOCYTES % (AUTO) 17 % (12-44); MEAN CORPUSCULAR HEMOGLOBIN 30 PG (25-34); MEAN CORPUSCULAR HGB CONC 32 G/DL (32-36); MEAN CORPUSCULAR VOLUME 94 FL (80-99); MEAN PLATELET VOLUME 9.9 FL (7.4-10.4); MONOCYTES # (AUTO) 0.8 X 10^3 (0.0-1.0); MONOCYTES % (AUTO) 10 % (0-12); NEUTROPHILS # (AUTO) 5.2 X 10^3 (1.8-7.8); NEUTROPHILS % (AUTO) 70 % (42-75); PLATELET COUNT 229 10^3/uL (130-400); RED CELL DISTRIBUTION WIDTH 14.8 % (10.0-14.5); WHITE BLOOD COUNT 7.4 10^3/uL (4.3-11.0)
[2018-05-11 09:43] LABS: ALBUMIN 3.9 GM/DL (3.2-4.5); BILIRUBIN,TOTAL 0.4 MG/DL (0.1-1.0); CALCIUM 9.5 MG/DL (8.5-10.1); CREATININE SERUM 1.08 MG/DL (0.60-1.30); POTASSIUM 4.2 MMOL/L (3.6-5.0); TOTAL PROTEIN 6.7 GM/DL (6.4-8.2)
== END 2018-08-09 | disposition home or self-care (01) ==
LOC: ONC 08:52
PROVIDERS: ATTEND Internal Medicine Hematology & Oncology
DX: C18.2 Malignant neoplasm of ascending colon (principal); I48.0 Paroxysmal atrial fibrillation; I10 Essential (primary) hypertension; J45.909 Unspecified asthma, uncomplicated; R53.83 Other fatigue; R06.02 Shortness of breath; E66.9 Obesity, unspecified; Z68.32 Body mass index [BMI] 32.0-32.9, adult; Z79.899 Other long term (current) drug therapy
CPT/HCPCS: 36415; 80053; 82378; 85025; 99213

== ENCOUNTER 2018-06-07 10:10 | Emergency (ER) | payer MEDICARE ==
[~2018-06-07] VITALS: Ht 157.5 cm; Wt 81.6 kg
--- NOTE | 2018-06-07 11:54 | Diagnostic Imaging Report ---
PROCEDURE: CT head and CT cervical spine without contrast. TECHNIQUE: Multiple contiguous axial images were obtained through the brain and cervical spine without the use of intravenous contrast. Sagittal and coronal reformations through the cervical spine were then performed. Auto Exposure Controls were utilized during the CT exam to meet ALARA standards for radiation dose reduction. INDICATION: Fall. Injury. Trauma to head. COMPARISON: 06/25/2016. FINDINGS: CT HEAD: The ventricles and cortical sulci are diffusely prominent, compatible with age-related volume loss. There are confluent areas of abnormal, low attenuation in the periventricular white matter. This is consistent with chronic small vessel ischemic changes. There is no midline shift or mass-effect. No acute intra-axial hemorrhage is seen. There are no abnormal areas of increased or decreased density to suggest acute hemorrhage or edema. No extra-axial masses or collections are present. There is moderate soft tissue swelling and hematoma posterior laterally on the right. The underlying bony calvarium is intact. The visualized paranasal sinuses are unremarkable. The mastoid air cells are clear. CT CERVICAL SPINE: Evaluation of static alignment demonstrates mild grade 1 anterolisthesis of C2-C3, C3-C4, C7-T1, and T2-T3 levels. Otherwise, static alignment is maintained. There is no evidence of jumped facets. Vertebral body heights are maintained. There is no evidence acute fracture. No bony fragments are seen within the spinal canal. There are moderate multilevel degenerative changes consisting of intervertebral disc height loss with anterior and posterior disc osteophyte complex formations, as well as multilevel facet arthropathy. These changes appear greatest at the C5-C6 and C6-C7 levels. Pre-and paravertebral soft tissue structures are unremarkable. Note is made calcified carotid atherosclerosis. Included portions of the lung apices are unremarkable as well. IMPRESSION: 1. No acute intracranial abnormality. No CT evidence of mass, acute infarct or intracranial hemorrhage. 2. Chronic small vessel ischemic changes in deep white matter. 3. No acute fracture or dislocation in the cervical spine. 4. Moderate multilevel degenerative change in cervical spine, greatest at C5-C6 and C6-C7. Dictated by: Dictated on workstation # [id number]
[2018-06-07] MEDS ORDERED: cloNIDine 0.1 MG (CATAPRES) TAB PO ONE (12:15)
--- NOTE | 2018-06-07 12:29 | ED Fall/Injury ---
General Chief Complaint: Trauma-Non Activation Stated Complaint: FALL/HEAD INJURY Nursing Triage Note: PT STATES SHE WAS STEPPING UP ONTO A PORCH AND FELL FROM THE SAME LEVEL HITTING HER HEAD ON THE RT SIDE, MIGHT HAVE HAD A BRIEF LOC BUT IT WAS NOT WITNESSED, DENIES ANY PAIN OTHER THAN TO HER HEAD. Source: patient Exam Limitations: no limitations History of Present Illness Date Seen by Provider: Jun 07, 2018 Time Seen by Provider: 11:56 Initial Comments Here with report of fall today. She is stiff and up onto a porch and fell. She apparently missed the post when she was grabbing for and fell backwards. She did land on her back and hit her head on the posterior right side. She is on Eliquis. Denies loss of consciousness but was dazed. She was ultimately able to get herself up and brought herself to the emergency department. Denies other significant injury. Does state that she has some pain in the mid tibia region on the right leg. Able to walk without difficulty. Occurred: just prior to arrival (one hour ago approximately) Severity: moderate Injuries/Pain Location: head, neck Loss of Consciousness: no loss of consciousness Associated Symptoms (Fall): No Chest Pain, No Confusion; Headache; No Muscle Spasms, No Neck Pain Allergies and Home Medications Allergies Coded Allergies: Penicillins (Unverified Allergy, Mild, 01/25/18) iodine (Unverified Allergy, Mild, 01/25/18) Sulfa (Sulfonamide Antibiotics) (Verified Allergy, Unknown, 01/25/18) sulfamethoxazole (Verified Allergy, Unknown, 01/25/18) trimethoprim (Verified Allergy, Unknown, 01/25/18) Home Medications Acetaminophen 500 Mg Tablet, 500 MG PO BID, (Reported) Apixaban 2.5 Mg Tablet, 2.5 MG PO BID, (Reported) Calcium Carbonate/Vitamin D3 1 Each Tablet, 1 TAB PO DAILY, (Reported) Cholecalciferol (Vitamin D3) 1,000 Unit Capsule, 1,000 UNIT PO DAILY, (Reported) Metoprolol Succinate 100 Mg Tab.er.24h, 100 MG PO BID, (Reported) Montelukast Sodium 10 Mg Tablet, 10 MG PO HS, (Reported) Multivitamin 1 Each Tablet, 1 TAB PO DAILY, (Reported) Patient Home Medication List Home Medication List Reviewed: Yes Review of Systems Review of Systems Constitutional: see HPI; No chills, No fever Ears, Nose, Mouth, Throat: no symptoms reported Respiratory: no symptoms reported Cardiovascular: no symptoms reported Gastrointestinal: no symptoms reported Skin: see HPI, change in color, lesions Psychiatric/Neurological: Headache; Denies Weakness Past Uqbdnzr-Ghukos-Xkcqsw Hx Past Med/Social Hx: Reviewed Nursing Past Med/Soc Hx Patient Social History Alcohol Use: Denies Use Recreational Drug Use: No Smoking Status: Never a Smoker Recent Foreign Travel: No Contact w/Someone Who Travel: No Recent Infectious Disease Expo: No Recent Hopitalizations: No Immunizations Up To Date Tetanus Booster (TDap): Unknown PED Vaccines UTD: No Date of Pneumonia Vaccine: Dec 20, 2017 Date of Influenza Vaccine: Dec 20, 2017 Seasonal Allergies Seasonal Allergies: Yes Past Medical History Surgeries: Yes (cataracts removed, COLON RESECTION, FOOT SX) Eye Surgery, Gallbladder Respiratory: Yes Asthma Currently Using CPAP: No Currently Using BIPAP: No Cardiac: Yes Atrial Fibrillation, Hypertension Neurological: No Reproductive Disorders: No Sexually Transmitted Disease: No HIV/AIDS: No Genitourinary: Yes (dribbling) Gastrointestinal: Yes (diverticulitis, colon ca, ) Diverticulosis, Chronic Diarrhea Musculoskeletal: Yes (arthritis/lymphedema both legs) Arthritis Endocrine: No HEENT: Yes Cataract Loss of Vision: Bilateral Hearing Impairment: Deaf Cancer: Yes Colon Did You Recieve Any Treatments: Yes What Type of Treatment Did You: Surgical Intervention Psychosocial: No Integumentary: No Recent Skin Changes Blood Disorders: Yes (anemia ) Adverse Reaction/Blood Tranf: No (HAS HAD BLOOD WITH NO REACTION) Family Medical History Reviewed Nursing Family Hx Cancer around heart 19 FATHER Cardiovascular disease 19 MOTHER Congenital heart disease 19 MOTHER Hypertension 19 MOTHER Respiratory disorder 19 FATHER (lung cancer) Physical Exam Vital Signs Vital Signs - First Documented 06/07/18 11:02 Temp 97.9 Pulse 66 Resp 20 B/P (MAP) 191/77 (115) Pulse Ox 99 O2 Delivery Room Air Capillary Refill : Less Than 3 Seconds Height, Weight, BMI Height: 5'2.00" Weight: 180lbs. 0.0oz. 81.756604yl; 31.6 BMI Method:Stated General Appearance: WD/WN, no apparent distress HEENT: PERRL/EOMI, TMs normal Neck: non-tender, full range of motion, supple, normal inspection Cardiovascular: regular rate, rhythm, no murmur Respiratory: lungs clear, normal breath sounds Extremities: normal range of motion, other (skin tear and abrasion to right mid tibia region) Neurologic/Psychiatric: alert, oriented x 3 Skin: warm/dry, other (4 cm skin tear right mid tibia anterior portion with surrounding ecchymosis. Bleeding controlled.) Progress/Results/Core Measures Results/Orders My Orders Orders - FELTON LESLIE MD Ct Head/Cervical Spine Wo (06/07/18 11:04) Clonidine Tablet (Catapres Tablet) (06/07/18 12:15) Medications Given in ED Current Medications Medications Dose Ordered Sig/Marleen Route Start Time Stop Time Status Last Admin Dose Admin Clonidine HCl 0.1 mg ONCE ONCE PO 06/07/18 12:15 06/07/18 12:17 DC 06/07/18 12:34 0.1 MG Vital Signs/I&O 06/07/18 11:02 Temp 97.9 Pulse 66 Resp 20 B/P (MAP) 191/77 (115) Pulse Ox 99 O2 Delivery Room Air Blood Pressure Mean: 115 Progress Progress Note : Progress Note Seen and evaluated. CT head and neck ordered. No acute findings. Patient noted to be somewhat hypertensive and she does have high blood pressure but normally it's well controlled. Clonidine 0.1 mg by mouth ordered. Monitor patient. 1353: Overall much better. Discharged home with return precautions. Patient verbalize understanding instructions and agreement with plan. Diagnostic Imaging Diagonstic Imaging: CT Plain Films/CT/US/NM/MRI: c-spine, head Comments [facility], [place] NAME: SRUTHI SYKES [facility] REC#: [id number] PT STATUS: REG ER : 1935 PHYSICIAN: FELTON LESLIE MD ADMIT DATE: 06/07/18/ER Draft Date of Exam:06/07/18 CT HEAD/CERVICAL SPINE WO PROCEDURE: CT head and CT cervical spine without contrast. TECHNIQUE: Multiple contiguous axial images were obtained through the brain and cervical spine without the use of intravenous contrast. Sagittal and coronal reformations through the cervical spine were then performed. Auto Exposure Controls were utilized during the CT exam to meet ALARA standards for radiation dose reduction. INDICATION: Fall. Injury. Trauma to head. COMPARISON: 06/25/2016. FINDINGS: CT HEAD: The ventricles and cortical sulci are diffusely prominent, compatible with age-related volume loss. There are confluent areas of abnormal, low attenuation in the periventricular white matter. This is consistent with chronic small vessel ischemic changes. There is no midline shift or mass-effect. No acute intra-axial hemorrhage is seen. There are no abnormal areas of increased or decreased density to suggest acute hemorrhage or edema. No extra-axial masses or collections are present. There is moderate soft tissue swelling and hematoma posterior laterally on the right. The underlying bony calvarium is intact. The visualized paranasal sinuses are unremarkable. The mastoid air cells are clear. CT CERVICAL SPINE: Evaluation of static alignment demonstrates mild grade 1 anterolisthesis of C2-C3, C3-C4, C7-T1, and T2-T3 levels. Otherwise, static alignment is maintained. There is no evidence of jumped facets. Vertebral body heights are maintained. There is no evidence acute fracture. No bony fragments are seen within the spinal canal. There are moderate multilevel degenerative changes consisting of intervertebral disc height loss with anterior and posterior disc osteophyte complex formations, as well as multilevel facet arthropathy. These changes appear greatest at the C5-C6 and C6-C7 levels. Pre-and paravertebral soft tissue structures are unremarkable. Note is made calcified carotid atherosclerosis. Included portions of the lung apices are unremarkable as well. IMPRESSION: 1. No acute intracranial abnormality. No CT evidence of mass, acute infarct or intracranial hemorrhage. 2. Chronic small vessel ischemic changes in deep white matter. 3. No acute fracture or dislocation in the cervical spine. 4. Moderate multilevel degenerative change in cervical spine, greatest at C5-C6 and C6-C7. Dictated on workstation # [id number] Dict: 06/07/18 1131 Trans: 06/07/18 1153 [facility] [id number] Interpreted by: PATRIZIA ARREOLA MD Electronically signed by: Departure Impression Primary Impression: Head injury, acute, without loss of consciousness Qualified Codes: S09.90XA - Unspecified injury of head, initial encounter Disposition: 01 HOME, SELF-CARE Condition: Improved Departure-Patient Inst. Decision time for Depature: 13:54 Referrals: YORDAN RODRIGUEZ MD (PCP/Family) Primary Care Physician Patient Instructions: Concussion, Adult (DC), Closed Head Injury (DC) Add. Discharge Instructions: All discharge instructions reviewed with patient and/or family. Voiced understanding. You may take Tylenol 1000 mg every 8 hours as needed for pain. Drink an adequate amount of fluids. Continue home medications as previously prescribed. Your son should stay with you tonight. Return for worsening, fever, vomiting, weakness, breathing problems , vision or balance problems or other concerns as needed. FELTON LESLIE MD Jun 07, 2018 12:29
[2018-06-07 14:15] VITALS: BP 172/68
== END 2018-06-07 14:15 | disposition home or self-care (01) ==
LOC: EDUNIT# 10:10 → ER 10:12
DX: S09.90XA Unspecified injury of head, initial encounter (principal); J45.909 Unspecified asthma, uncomplicated; I48.91 Unspecified atrial fibrillation; I10 Essential (primary) hypertension; D64.9 Anemia, unspecified; Z85.038 Personal history of other malignant neoplasm of large intestine; Z87.19 Personal history of other diseases of the digestive system; Z82.49 Family history of ischemic heart disease and other diseases of the circulatory system; Z88.0 Allergy status to penicillin; Z91.041 Radiographic dye allergy status; Z88.2 Allergy status to sulfonamides; Z88.8 Allergy status to other drugs, medicaments and biological substances; Z90.89 Acquired absence of other organs; Z98.890 Other specified postprocedural states; Z79.01 Long term (current) use of anticoagulants; W01.198A Fall on same level from slipping, tripping and stumbling with subsequent striking against other object, initial encounter; Y92.008 Other place in unspecified non-institutional (private) residence as the place of occurrence of the external cause
CPT/HCPCS: 70450; 72125

== ENCOUNTER 2018-09-14 08:43 | Outpatient (RCR) | payer MEDICARE ==
[~2018-09-14 08:43] MED LIST changes: +CYAN-41 PO; -CYAN10006 PO
[2018-09-14 09:13] LABS: BASOPHILS % (AUTO) 0 % (0-10); EOSINOPHILS # (AUTO) 0.2 10^3/uL (0.0-0.3); EOSINOPHILS % (AUTO) 3 % (0-10); HEMATOCRIT 41 % (35-52); LYMPHOCYTES # (AUTO) 1.2 X 10^3 (1.0-4.0); LYMPHOCYTES % (AUTO) 18 % (12-44); MEAN CORPUSCULAR HEMOGLOBIN 30 PG (25-34); MEAN CORPUSCULAR HGB CONC 32 G/DL (32-36); MEAN CORPUSCULAR VOLUME 94 FL (80-99); MEAN PLATELET VOLUME 9.8 FL (7.4-10.4); MONOCYTES # (AUTO) 0.6 X 10^3 (0.0-1.0); MONOCYTES % (AUTO) 9 % (0-12); NEUTROPHILS # (AUTO) 4.6 X 10^3 (1.8-7.8); NEUTROPHILS % (AUTO) 70 % (42-75); PLATELET COUNT 240 10^3/uL (130-400); WHITE BLOOD COUNT 6.6 10^3/uL (4.3-11.0)
[2018-09-14 09:36] LABS: BILIRUBIN,TOTAL 0.3 MG/DL (0.1-1.0); CALCIUM 9.4 MG/DL (8.5-10.1); CREATININE SERUM 1.04 MG/DL (0.60-1.30); POTASSIUM 4.5 MMOL/L (3.6-5.0); TOTAL PROTEIN 6.9 GM/DL (6.4-8.2)
== END 2018-12-13 | disposition home or self-care (01) ==
LOC: ONC 08:43
PROVIDERS: ATTEND Internal Medicine Hematology & Oncology
DX: C18.2 Malignant neoplasm of ascending colon (principal); I48.0 Paroxysmal atrial fibrillation; I10 Essential (primary) hypertension; J45.909 Unspecified asthma, uncomplicated; R53.83 Other fatigue; R06.02 Shortness of breath; E66.9 Obesity, unspecified; Z68.32 Body mass index [BMI] 32.0-32.9, adult; Z79.899 Other long term (current) drug therapy
CPT/HCPCS: 36415; 80053; 82378; 85025; 99213

== ENCOUNTER 2019-01-11 08:13 | Outpatient (RCR) | payer MEDICARE ==
[~2019-01-11 08:13] MED LIST changes: -METO-387 PO; -METO-395 PO; +MTP100TCR PO; +MTP25TSR PO
[2019-01-11 08:27] LABS: BASOPHILS % (AUTO) 0 % (0-10); EOSINOPHILS # (AUTO) 0.2 10^3/uL (0.0-0.3); EOSINOPHILS % (AUTO) 3 % (0-10); HEMATOCRIT 39 % (35-52); HEMOGLOBIN 12.6 G/DL (11.5-16.0); LYMPHOCYTES # (AUTO) 1.4 X 10^3 (1.0-4.0); LYMPHOCYTES % (AUTO) 18 % (12-44); MEAN CORPUSCULAR HEMOGLOBIN 31 PG (25-34); MEAN CORPUSCULAR HGB CONC 32 G/DL (32-36); MEAN CORPUSCULAR VOLUME 95 FL (80-99); MEAN PLATELET VOLUME 9.8 FL (7.4-10.4); MONOCYTES # (AUTO) 0.7 X 10^3 (0.0-1.0); MONOCYTES % (AUTO) 10 % (0-12); NEUTROPHILS # (AUTO) 5.4 X 10^3 (1.8-7.8); NEUTROPHILS % (AUTO) 69 % (42-75); PLATELET COUNT 202 10^3/uL (130-400); RED CELL DISTRIBUTION WIDTH 14.2 % (10.0-14.5); WHITE BLOOD COUNT 7.7 10^3/uL (4.3-11.0)
[2019-01-11 08:43] LABS: ALBUMIN 3.8 GM/DL (3.2-4.5); BILIRUBIN,TOTAL 0.4 MG/DL (0.1-1.0); CALCIUM 9.6 MG/DL (8.5-10.1); CREATININE SERUM 0.95 MG/DL (0.60-1.30); POTASSIUM 4.1 MMOL/L (3.6-5.0); TOTAL PROTEIN 6.6 GM/DL (6.4-8.2)
[2019-01-25] MEDS ORDERED: MULT-974 PO (11:17)
[2019-02-06] MEDS ORDERED: ONDN4T PO (16:39)
[2019-02-06] MEDS ORDERED: LEVO500T2 PO (16:39)
[2019-02-06] MEDS ORDERED: HYDR-3816 PO (16:39)
[2019-02-06] MEDS ORDERED: METR500T PO (16:39)
== END 2019-04-11 | disposition home or self-care (01) ==
LOC: ONC 08:13
PROVIDERS: ATTEND Internal Medicine Hematology & Oncology
DX: C18.2 Malignant neoplasm of ascending colon (principal); I48.0 Paroxysmal atrial fibrillation; I10 Essential (primary) hypertension; J45.909 Unspecified asthma, uncomplicated; R53.83 Other fatigue; R06.02 Shortness of breath; E66.9 Obesity, unspecified; Z68.32 Body mass index [BMI] 32.0-32.9, adult; Z79.899 Other long term (current) drug therapy
CPT/HCPCS: 36415; 80053; 82378; 85025; 99213

== ENCOUNTER 2019-01-25 05:34 | Outpatient (CLI) | payer MEDICARE ==
[~2019-01-25] VITALS: Ht 160 cm; Wt 81.0 kg
[~2019-01-25 05:34] MED LIST changes: +METO-387 PO; +METO-395 PO; -MTP100TCR PO; -MTP25TSR PO
[2019-01-25] MEDS ORDERED: MULT-974 PO (11:17)
== END 2019-01-25 11:20 | disposition home or self-care (01) ==
LOC: PREOP 05:34
PROVIDERS: ATTEND Surgery
DX: Z01.818 Encounter for other preprocedural examination (principal)

== ENCOUNTER 2019-02-01 08:18 | Day surgery (SDC) | payer MEDICARE ==
[2019-02-01] VITALS (12 sets, daily range): BP systolic 137–222; BP diastolic 67–99
[~2019-02-01] VITALS: Ht 157.5 cm; Wt 81.0 kg
[~2019-02-01 08:18] MED LIST changes: +MULT-974 PO
[2019-02-01] MEDS ORDERED: NS IV 500 ML 500 ML ONE (08:37)
[2019-02-01] MEDS ORDERED: NS IV 500 ML 500 ML IV PRN (08:40)
[2019-02-01] MEDS ORDERED: LIDOCAINE JELLY 2% 6 ML SYRINGE MM PRN (08:45)
[2019-02-01] MEDS ORDERED: fentaNYL INJECTION 100 MCG/2 ML AMP IVP ONE (08:45)
--- NOTE | 2019-02-01 08:53 | Conscious Sedation/ASA ---
Conscious Sedation Pre-Proced Time 08:50 ASA Score 2 For ASA 3 and 4: Consider anesthesia and medical clearance. Also, for patients with a history of failed moderate sedation consider anesthesia. Airway Lungs Heart ASA score ASA 1: a normal healthy patient ASA 2: a patient with a mild systemic disease (mid diabetes, controlled hypertension, obesity ASA 3: a patient with a severe systemic disease that limits activity (angina, COPD, prior Myocardial infarction) ASA 4: a patient with an incapacitating disease that is a constant threat to life (CHF, renal failure) ASA 5: a moribund patient not expected to survive 24 hrs. (ruptured aneurysm) ASA 6: a declared brain- patient whose organs are being harvested. For emergent operations, add the letter E after the classification Mallampati Classification Grade 2 Sedation Plan Analgesia, Amnesia, Plan communicated to team members, Discussed options with patient/fam, Discussed risks with patient/fam The patient is an appropriate candidate to undergo the planned procedure, sedation, and anesthesia. The patient immediately re-assessed prior to indication. STEPHANY ALY MD Feb 01, 2019 08:53 POS
--- NOTE | 2019-02-01 08:53 | Progress Note-Pre Operative ---
Pre-Operative Progress Note H&P Reviewed The H&P was reviewed, patient examined and no changes noted. Date Seen by Provider: Feb 01, 2019 Time Seen by Provider: 08:50 Date H&P Reviewed: Feb 01, 2019 Time H&P Reviewed: 08:50 Pre-Operative Diagnosis: hx colon ca/screening STEPHANY ALY MD Feb 01, 2019 08:53 POS
--- NOTE | 2019-02-01 08:55 | Discharge Inst-Surgical ---
D/C Lap Instructions-JERMAIN Follow Up Activity as tolerated High Fiber Diet 25g or more per day Avoid Alcohol, Caffeine, Spicy [place] and Acid foods. Drink 64 fluid oz or more of fluids per day. Symptoms to Report: Fever over 101 degree F, Nausea/Vomiting If any problems/questions: Contact your physician or go to Emergency Room STEPHANY ALY MD Feb 01, 2019 08:55 POS
[2019-02-01] MEDS ORDERED: ONDANSETRON 4 MG (ZOFRAN) ORAL DISSOLVE TAB PO PRN (09:00)
[2019-02-01] MEDS ORDERED: morphine INJ 10 MG/ML 1ML (SYR OR VIAL) IVP PRN ×2 (09:00)
[2019-02-01] MEDS ORDERED: HYDROcodone/APAP 5 MG/325 MG (LORTAB) TAB PO PRN (09:00)
[2019-02-01] MEDS ORDERED: ACETAMINOPHEN 325 MG TABLET PO PRN (09:00)
[2019-02-01] MEDS ORDERED: LIDOCAINE JELLY 2% 6 ML SYRINGE ONE (10:27)
[2019-02-01] MEDS ORDERED: fentaNYL INJECTION 100 MCG/2 ML AMP ONE (10:27)
[2019-02-01] MEDS: MIDAZOLAM 5 MG/5 ML (VERSED) VIAL IV PRN ×3 (10:27→10:35)
[2019-02-01] MEDS ORDERED: MIDAZOLAM 5 MG/5 ML (VERSED) VIAL ONE (10:27)
--- NOTE | 2019-02-01 11:47 | Progress Note-Post Operative ---
Post-Operative Progess Note Surgeon (s)/Lug Breaker And Wire Puller (s) Surgeon STEPHANY ALY MD Lug Breaker And Wire Puller: none Pre-Operative Diagnosis hx colon ca/screening Post-Operative Diagnosis mild stage 1 ext and int hemorrhoids, moderate sigmoid and descending diverticulosis. Procedure & Operative Findings Date of Procedure 02/01/19 Procedure Performed/Findings colonoscopy Anesthesia Type cs Estimated Blood Loss Estimated blood loss (mL): minimal Specimens/Packing Specimens Removed none STEPHANY ALY MD Feb 01, 2019 11:47 POS
--- NOTE | 2019-02-01 16:51 | OPERATIVE REPORT ---
DATE OF SERVICE: 02/01/2019 ATTENDING PRIMARY CARE PHYSICIAN: Dr. Max. PREOPERATIVE DIAGNOSIS: History of right colon cancer. POSTOPERATIVE DIAGNOSES: Chronic stage I external and internal hemorrhoids, moderate sigmoid and descending colonic diverticulosis, normal ileocolonic anastomosis. PROCEDURE: Colonoscopy. SURGEON: Stephany Aly MD ANESTHESIA: Conscious sedation. ESTIMATED BLOOD LOSS: Minimal. FINDINGS: Chronic stage I external and internal hemorrhoids, moderate sigmoid and descending colonic diverticulosis, normal ileocolonic anastomosis.. DISPOSITION: The patient tolerated the procedure well. INDICATIONS: The patient is an 83-year-old female known to us. She was found to be anemic. In 2017, she underwent a colonoscopy and found to have a lesion of the ascending colon, which was biopsied and consistent with a poorly differentiated adenocarcinoma. On 11/20/2016, she underwent a laparoscopic right hemicolectomy. The tumor was a T3 with no nodes. She states at this time, she is otherwise doing well. She has had followup colonoscopies. This is her second one since her surgery. DESCRIPTION OF PROCEDURE: The patient was brought to the endoscopy suite, laid in the left lateral decubitus position. After adequate IV pain and sedative medications and conscious sedation anesthesia, digital rectal examination was performed. Mild chronic stage I external and internal hemorrhoids were identified, which were not actively edematous nor inflamed and no bleeding. Normal sphincter tone was felt and there were no palpable masses. The endoscope was then intubated into the anus and rectum was gently insufflated. The endoscope was then advanced through the valves of Titus of the rectum with no polyps or any neoplasms identified. Through the sigmoid and descending colon, a moderate diverticulosis was identified. There were no mucosal inflammatory changes to indicate any active diverticulitis. The endoscope was then advanced through the transverse colon to the ileocolonic anastomosis, which was normal with no recurrent lesions. The endoscope was then slowly withdrawn while taking a second look and suctioning of residual air with no additional findings. The patient tolerated the procedure well. We will recommend continued medical management with a high fiber diet with 25 grams of fiber daily as well as significant amounts of water to promote soft stools on a daily basis. She will be instructed to continue to follow up with Oncology. However, she has not had two consecutive negative colonoscopies and she may wait five years for next colonoscopy; however, earlier if she becomes symptomatic. Job ID: [id number] DocumentID: [id number] Dictated Date: 02/01/2019 10:53:16 Open Hearth Laborer Date: 02/01/2019 16:50:41 Dictated By: STEPHANY ALY MD
== END 2019-02-01 11:35 | disposition home or self-care (01) ==
LOC: ENDO 08:18
PROVIDERS: ATTEND Surgery
DX: Z12.11 Encounter for screening for malignant neoplasm of colon (principal); K57.30 Diverticulosis of large intestine without perforation or abscess without bleeding; K64.0 First degree hemorrhoids; Z85.038 Personal history of other malignant neoplasm of large intestine; I10 Essential (primary) hypertension; J45.909 Unspecified asthma, uncomplicated; I25.10 Atherosclerotic heart disease of native coronary artery without angina pectoris; Z79.01 Long term (current) use of anticoagulants; Z88.0 Allergy status to penicillin; Z88.2 Allergy status to sulfonamides; Z79.899 Other long term (current) drug therapy
CPT/HCPCS: G0105

== ENCOUNTER 2019-02-02 13:31 | Inpatient (IN) | payer MEDICARE ==
[~2019-02-02] VITALS: Ht 157.7 cm; Wt 80.1 kg
[2019-02-02 14:02] LABS: BASOPHILS % (AUTO) 0 % (0-10); EOSINOPHILS % (AUTO) 0 % (0-10); HEMATOCRIT 38 % (35-52); HEMOGLOBIN 12.6 G/DL (11.5-16.0); LYMPHOCYTES # (AUTO) 0.8 X 10^3 (1.0-4.0); LYMPHOCYTES % (AUTO) 4 % (12-44); MEAN CORPUSCULAR HEMOGLOBIN 31 PG (25-34); MEAN CORPUSCULAR HGB CONC 33 G/DL (32-36); MEAN CORPUSCULAR VOLUME 93 FL (80-99); MEAN PLATELET VOLUME 9.8 FL (7.4-10.4); MONOCYTES # (AUTO) 0.7 X 10^3 (0.0-1.0); MONOCYTES % (AUTO) 4 % (0-12); NEUTROPHILS # (AUTO) 17.9 X 10^3 (1.8-7.8); NEUTROPHILS % (AUTO) 92 % (42-75); PLATELET COUNT 224 10^3/uL (130-400); RED CELL DISTRIBUTION WIDTH 14.8 % (10.0-14.5); WHITE BLOOD COUNT 19.4 10^3/uL (4.3-11.0)
[2019-02-02 14:05] LABS: BILIRUBIN,URINE 1+ (NEGATIVE); CLARITY,URINE CLEAR; COLOR,URINE YELLOW; GLUCOSE, URINE (UA) NEGATIVE (NEGATIVE); KETONES,URINE TRACE (NEGATIVE); LEUKOCYTE ESTERASE ,URINE TRACE (NEGATIVE); NITRITE,URINE NEGATIVE (NEGATIVE); PH,URINE 5.5 (5-9); PROTEIN,URINE 1+ (NEGATIVE)
[2019-02-02] MEDS ORDERED: NS IV 1000 ML 1,000 ML IV ONE ×2 (14:08→14:53)
[2019-02-02] MEDS ORDERED: ONDANSETRON 4 MG/2 ML (SDV) Z0FRAN IVP ONE (14:15)
[2019-02-02 14:17] LABS: BACTERIA,URINE MODERATE /HPF
--- NOTE | 2019-02-02 14:19 | ED Abdominal Pain ---
General Chief Complaint: Abdominal/GI Problems Stated Complaint: COLONOSCOPY YESTERDAY,PAIN TODAY,CAN BARELY WALK Nursing Triage Note: Pt to ED in wheelchair. Pt reports having colonoscopy yesterday and ate angel and eggs as soon as getting home. Pt is now reporting severe abdominal pain, and pt is now reporting difficulty walking. Sepsis Screen: No Definite Risk Source of Information: Patient, Family (son) Exam Limitations: No Limitations History of Present Illness Date Seen by Provider: Feb 02, 2019 Time Seen by Provider: 14:00 Initial Comments 83-year-old female patient known to me from the outpatient office of Dr. Rodriguez's presents with complaints of generalized abdominal pain beginning yesterday afternoon. Patient reports having a colonoscopy done by Dr. Gaston as an outpatient. She reports upon arriving home she had eaten scrambled eggs and angel. Reports pain began soon after eating. Reports pain has progressively gotten worse and is now having difficulty walking due to the abdominal pain. Timing/Duration: 24 Hours, Getting Worse Severity/Quality: Aching, Sharp, Stabbing Location: Generalized Abdomen Radiation: No Radiation Activities at Onset: Other (just after eating yesterday) Modifying Factors: Worsens With Movement, Worsens With Palpation Allergies and Home Medications Allergies Coded Allergies: Penicillins (Unverified Allergy, Mild, 01/25/19) iodine (Unverified Allergy, Mild, 01/25/19) Sulfa (Sulfonamide Antibiotics) (Verified Allergy, Unknown, 01/25/19) sulfamethoxazole (Verified Allergy, Unknown, 01/25/19) trimethoprim (Verified Allergy, Unknown, 01/25/19) Home Medications Acetaminophen 500 Mg Tablet, 500 MG PO BID, (Reported) Apixaban 2.5 Mg Tablet, 2.5 MG PO BID, (Reported) Calcium Carbonate/Vitamin D3 1 Each Tablet, 1 TAB PO DAILY, (Reported) Cholecalciferol (Vitamin D3) 1,000 Unit Capsule, 1,000 UNIT PO DAILY, (Reported) Metoprolol Succinate 100 Mg Tab.er.24h, 100 MG PO DAILY, (Reported) Montelukast Sodium 10 Mg Tablet, 10 MG PO HS, (Reported) Multivitamin 1 Each Tablet, 1 EACH PO DAILY, (Reported) Patient Home Medication List Home Medication List Reviewed: Yes Review of Systems Review of Systems Constitutional: chills; No diaphoresis; fever (possible low grade fever yesterday) EENTM: No Symptoms Reported Respiratory: Denies Cough, Denies Orthopnea; Shortness of Air ((difficult to take a deep breath due to abdominal distention and pain)); Denies Stridor, Denies Wheezing Cardiovascular: Denies Chest Pain, Denies Edema, Denies Irregular Heart Rate, Denies Lightheadedness, Denies Palpitations, Denies Syncope Gastrointestinal: See HPI, Abdomen Distended, Abdominal Pain; Denies Constipated, Denies Diarrhea; Nausea, Poor Fluid Intake; Denies Vomiting; Other (burping, but denies passing flatus.) Genitourinary: Denies Burning, Denies Frequency, Denies Hematuria Musculoskeletal: no symptoms reported Skin: no symptoms reported Psychiatric/Neurological: No Symptoms Reported All Other Systems Reviewed Negative Unless Noted: Yes (Negative excepted noted.) Past Ruioyod-Noacoc-Katajw Hx Past Med/Social Hx: Reviewed Nursing Past Med/Soc Hx Patient Social History Alcohol Use: Denies Use Recreational Drug Use: No 2nd Hand Smoke Exposure: No Recent Foreign Travel: No Contact w/Someone Who Travel: No Recent Infectious Disease Expo: No Recent Hopitalizations: No Immunizations Up To Date Tetanus Booster (TDap): Unknown PED Vaccines UTD: No Date of Pneumonia Vaccine: Dec 12, 2018 Date of Influenza Vaccine: Dec 12, 2018 Seasonal Allergies Seasonal Allergies: Yes Past Medical History Surgeries: Yes (cataracts removed, COLON RESECTION, FOOT SX, LOOP MONITOR) Eye Surgery, Gallbladder Respiratory: Yes Asthma Currently Using CPAP: No Currently Using BIPAP: No Cardiac: Yes Atrial Fibrillation, Hypertension Neurological: No Reproductive Disorders: No Sexually Transmitted Disease: No HIV/AIDS: No Genitourinary: Yes (dribbling) Gastrointestinal: Yes ( colon ca, ) Diverticulosis, Chronic Diarrhea Musculoskeletal: Yes Arthritis Endocrine: No HEENT: Yes (GLASSES) Cataract Loss of Vision: Denies Hearing Impairment: Deaf Cancer: Yes Colon Did You Recieve Any Treatments: Yes What Type of Treatment Did You: Surgical Intervention Psychosocial: No Integumentary: No Recent Skin Changes Blood Disorders: Yes (anemia ) Adverse Reaction/Blood Tranf: No (HAS HAD BLOOD WITH NO REACTION) Family Medical History Reviewed Nursing Family Hx Cancer around heart 19 FATHER Cardiovascular disease 19 MOTHER Congenital heart disease 19 MOTHER Hypertension 19 MOTHER Respiratory disorder 19 FATHER (lung cancer) No Pertinent Family Hx Physical Exam Vital Signs Vital Signs - First Documented 02/02/19 13:40 Temp 36.7 Pulse 95 Resp 11 B/P (MAP) 153/78 (103) Pulse Ox 97 O2 Delivery Room Air Capillary Refill : Less Than 3 Seconds Height/Weight/BMI Height: 5'2.00" Weight: 180lbs. 0.0oz. 81.548539eg; 33.00 BMI Method:Stated General Appearance: WD/WN, no apparent distress HEENT: PERRL/EOMI, pharynx normal Neck: supple, normal inspection Respiratory: lungs clear, normal breath sounds, no respiratory distress, no accessory muscle use Cardiovascular: normal peripheral pulses, regular rate, rhythm, no edema, no gallop, no JVD, no murmur Gastrointestinal: distended, guarding (generalized guarding); No rebound; tenderness (generalized TTP); No mass Extremities: no pedal edema, no calf tenderness, normal capillary refill Back: normal inspection, no CVA tenderness Neurologic/Psychiatric: alert, normal mood/affect, oriented x 3 Skin: normal color, warm/dry Focused Exam Lactate Level 02/02/19 15:00: Lactic Acid Level 1.85 Lactic Acid Level Laboratory Tests Test 02/02/19 15:00 Lactic Acid Level 1.85 MMOL/L (0.50-2.00) Progress/Results/Core Measures Results/Orders Lab Results Laboratory Tests Test 02/02/19 13:50 02/02/19 13:56 02/02/19 15:00 Range/Units White Blood Count 19.4 H 4.3-11.0 10^3/uL Red Blood Count 4.08 L 4.35-5.85 10^6/uL Hemoglobin 12.6 11.5-16.0 G/DL Hematocrit 38 35-52 % Mean Corpuscular Volume 93 80-99 FL Mean Corpuscular Hemoglobin 31 25-34 PG Mean Corpuscular Hemoglobin Concent 33 32-36 G/DL Red Cell Distribution Width 14.8 H 10.0-14.5 % Platelet Count 224 130-400 10^3/uL Mean Platelet Volume 9.8 7.4-10.4 FL Neutrophils (%) (Auto) 92 H 42-75 % Lymphocytes (%) (Auto) 4 L 12-44 % Monocytes (%) (Auto) 4 0-12 % Eosinophils (%) (Auto) 0 0-10 % Basophils (%) (Auto) 0 0-10 % Neutrophils # (Auto) 17.9 H 1.8-7.8 X 10^3 Lymphocytes # (Auto) 0.8 L 1.0-4.0 X 10^3 Monocytes # (Auto) 0.7 0.0-1.0 X 10^3 Eosinophils # (Auto) 0.0 0.0-0.3 10^3/uL Basophils # (Auto) 0.0 0.0-0.1 10^3/uL Neutrophils % (Manual) 91 % Lymphocytes % (Manual) 3 % Monocytes % (Manual) 2 % Band Neutrophils 4 % Blood Morphology Comment NORMAL Sodium Level 135 135-145 MMOL/L Potassium Level 4.0 3.6-5.0 MMOL/L Chloride Level 100 98-107 MMOL/L Carbon Dioxide Level 21 21-32 MMOL/L Anion Gap 14 5-14 MMOL/L Blood Urea Nitrogen 27 H 7-18 MG/DL Creatinine 1.28 0.60-1.30 MG/DL Estimat Glomerular Filtration Rate 40 BUN/Creatinine Ratio 21 Glucose Level 114 H 70-105 MG/DL Calcium Level 9.1 8.5-10.1 MG/DL Corrected Calcium 9.1 8.5-10.1 MG/DL Total Bilirubin 0.8 0.1-1.0 MG/DL Aspartate Amino Transf (AST/SGOT) 13 5-34 U/L Alanine Aminotransferase (ALT/SGPT) 9 0-55 U/L Alkaline Phosphatase 67 40-136 U/L Total Protein 6.7 6.4-8.2 GM/DL Albumin 4.0 3.2-4.5 GM/DL Lipase 10 8-78 U/L Urine Color YELLOW Urine Clarity CLEAR Urine pH 5.5 5-9 Urine Specific [place] >=1.030 1.016-1.022 Urine Protein 1+ H NEGATIVE Urine Glucose (UA) NEGATIVE NEGATIVE Urine Ketones TRACE H NEGATIVE Urine Nitrite NEGATIVE NEGATIVE Urine Bilirubin 1+ H NEGATIVE Urine Urobilinogen 0.2 < = 1.0 MG/DL Urine Leukocyte Esterase TRACE NEGATIVE Urine RBC (Auto) 2+ H NEGATIVE Urine RBC NONE /HPF Urine WBC 10-25 H /HPF Urine Squamous Epithelial Cells 2-5 /HPF Urine Crystals NONE /LPF Urine Bacteria MODERATE H /HPF Urine Casts NONE /LPF Urine Mucus NEGATIVE /LPF Urine Culture Indicated YES Lactic Acid Level 1.85 0.50-2.00 MMOL/L My Orders Orders - COTY WOOD Ed Iv/Invasive Line Start (02/02/19 13:46) Cbc With Automated Diff (02/02/19 13:46) Comprehensive Metabolic Panel (02/02/19 13:46) Lipase (02/02/19 13:46) Ua Culture If Indicated (02/02/19 13:46) Ct Abdomen/Pelvis Wo (02/02/19 13:50) Manual Differential (02/02/19 13:50) Ondansetron Injection (Zofran Injectio (02/02/19 14:15) Ns Iv 1000 Ml (Sodium Chloride 0.9%) (02/02/19 14:08) Urine Culture (02/02/19 13:56) Ns Iv 1000 Ml (Sodium Chloride 0.9%) (02/02/19 14:53) Lactic Acid Analyzer (02/02/19 14:53) Blood Culture (02/02/19 14:53) Levofloxacin 750 Mg/150 Ml Iv (Levaquin (02/02/19 14:53) Metronidazole 500mg/100ml Ivpb (Flagyl 5 (02/02/19 15:00) Medications Given in ED Current Medications Medications Dose Ordered Sig/Marleen Route Start Time Stop Time Status Last Admin Dose Admin Ondansetron HCl 4 mg ONCE ONCE IVP 02/02/19 14:15 02/02/19 14:16 DC 02/02/19 14:14 4 MG Sodium Chloride 1,000 ml @ 0 mls/hr Q0M ONCE IV 02/02/19 14:08 02/02/19 14:09 DC 02/02/19 14:14 1,000 MLS/HR Vital Signs/I&O 02/02/19 13:40 Temp 36.7 Pulse 95 Resp 11 B/P (MAP) 153/78 (103) Pulse Ox 97 O2 Delivery Room Air Blood Pressure Mean: 103 POS Diagnostic Imaging Diagonstic Imaging: CT Plain Films/CT/US/NM/MRI: abdomen, pelvis Comments POSDate of Exam:02/02/19 CT ABDOMEN/PELVIS WO EXAMINATION: CT Abdomen Pelvis without contrast. TECHNIQUE: Multiple contiguous axial images were obtained through the abdomen and pelvis without the use of intravenous contrast. All CT scans use one or more of the following dose optimizing techniques: automated exposure control, MA and/or KvP adjustment based on a patient size and exam type, or iterative reconstruction. HISTORY: Recent colonoscopy with severe abdominal pain. COMPARISON: 06/17/2017 FINDINGS: Limited views of the lower thorax are unremarkable. There is a moderate amount of mottled free air throughout the abdomen. Air is also present within a ventral abdominal hernia. The exact site of the leak is difficult to identify. The most inflamed appearing area is in the region of the neoterminal ileum in this patient who appears to has had a right hemicolectomy. There is an anastomosis in this location. There is extensive diverticulosis without diverticulitis. There is a small amount of free fluid in the pelvis. No bowel obstruction. The liver is normal without foca l lesion. There is no biliary ductal dilation. Gallbladder is surgically absent. Pancreas is normal. Spleen is normal. Adrenal glands are normal. There is a stone in the lower pole of the left kidney measuring approximately 7 mm. There is no hydronephrosis. Urinary bladder is normal. There are no dilated loops of large or small bowel. No obstruction or inflammation. No free fluid or air. No abdominal or pelvic lymphadenopathy. Aorta is normal in caliber without aneurysm. There are no suspicious osseus lesions. IMPRESSION: 1. Free intraperitoneal air which is moderate with the source not definitely seen. However, it is favored to be in the region of an anastomosis for a right hemicolectomy. CRITICAL FINDINGS were communicated to Dr. Wood by Dr. Covarrubias on 01/25/2019 at 2:45 PM. Dictated on workstation # [id number] Reviewed: Reviewed by Me (radiology report reviewed by me) Departure Communication (Admissions) Time/Spoke to Admitting Phy: 14:50 Dr. Gaston graciously accepts patient to his surgical service for conservative management with IV fluids, IV antibiotics, and bowel rest. Patient seen and evaluated. Labs and CT abdomen/pelvis obtained. Findings were discussed with Dr. Gaston with recommendations for admission. All laboratory findings, CT scan findings, and plan for admission discussed with the patient. Patient verbalizes understanding and agrees with the treatment plan. Plan for admission discussed with Dr. Youssef, he agrees with the plan of care. Impression Primary Impression: Colon perforation Additional Impressions: Urinary tract infection Qualified Codes: N30.00 - Acute cystitis without hematuria Volume depletion S/P colonoscopy Disposition: 09 ADMITTED INPATIENT Condition: Stable Admissions Decision to Admit Reason: Admit from ER (General) Decision to Admit/Date: Feb 02, 2019 Time/Decision to Admit Time: 14:50 Departure-Patient Inst. Referrals: YORDAN RODRIGUEZ MD (PCP/Family) Primary Care Physician COTY WOOD Feb 02, 2019 14:19 POS
[2019-02-02 14:22] LABS: BILIRUBIN,TOTAL 0.8 MG/DL (0.1-1.0); CALCIUM 9.1 MG/DL (8.5-10.1); CREATININE SERUM 1.28 MG/DL (0.60-1.30); TOTAL PROTEIN 6.7 GM/DL (6.4-8.2)
[2019-02-02 14:45] LABS: BAND NEUTROPHILS 4 %; LYMPHOCYTES % (MANUAL) 3 %; MONOCYTES % (MANUAL) 2 %; NEUTROPHILS % (MANUAL) 91 %
[2019-02-02 14:46] LABS: RBC MORPH NORMAL
[2019-02-02] MEDS ORDERED: LEVOFLOXACIN 750 MG/150 ML IV 150 ML IV STA (14:53)
[2019-02-02] MEDS ORDERED: metroNIDAZOLE 500MG/100ML IVPB 100 ML IV ONE (15:00)
--- NOTE | 2019-02-02 15:10 | Diagnostic Imaging Report ---
EXAMINATION: CT Abdomen Pelvis without contrast. TECHNIQUE: Multiple contiguous axial images were obtained through the abdomen and pelvis without the use of intravenous contrast. All CT scans use one or more of the following dose optimizing techniques: automated exposure control, MA and/or KvP adjustment based on a patient size and exam type, or iterative reconstruction. HISTORY: Recent colonoscopy with severe abdominal pain. COMPARISON: 06/17/2017 FINDINGS: Limited views of the lower thorax are unremarkable. There is a moderate amount of mottled free air throughout the abdomen. Air is also present within a ventral abdominal hernia. The exact site of the leak is difficult to identify. The most inflamed appearing area is in the region of the neoterminal ileum in this patient who appears to has had a right hemicolectomy. There is an anastomosis in this location. There is extensive diverticulosis without diverticulitis. There is a small amount of free fluid in the pelvis. No bowel obstruction. The liver is normal without focal lesion. There is no biliary ductal dilation. Gallbladder is surgically absent. Pancreas is normal. Spleen is normal. Adrenal glands are normal. There is a stone in the lower pole of the left kidney measuring approximately 7 mm. There is no hydronephrosis. Urinary bladder is normal. There are no dilated loops of large or small bowel. No obstruction or inflammation. No free fluid or air. No abdominal or pelvic lymphadenopathy. Aorta is normal in caliber without aneurysm. There are no suspicious osseus lesions. IMPRESSION: 1. Free intraperitoneal air which is moderate with the source not definitely seen. However, it is favored to be in the region of an anastomosis for a right hemicolectomy. CRITICAL FINDINGS were communicated to Dr. Wood by Dr. Covarrubias on 01/25/2019 at 2:45 PM. Dictated by: Dictated on workstation # [id number]
--- NOTE | 2019-02-02 16:00 | NUR ---
SRUTHI SYKES Chuck admitted to room 413-1, with an admitting diagnosis of COLON PERF, on 02/02/19 from ED via , accompanied by STAFF. SRUTHI SYKES introduced to surroundings, call light, bed controls, phone, TV, temperature control, lights, meal times, smoking policy, visitor policy, side rail policy, bathrooms and showers. Patient Rights given to patient in the handbook. SRUTHI SYKES verbalizes understanding that [facility] is not responsible for the loss or damage to any personal effects or valuables that are kept in the patients posession during their hospitalization. The following Patient Care Plans were discussed with the PT: Discharge Planning, PAIN. SRUTHI SYKES verbalizes understanding of Interdisciplinary Patient Education. Patient and/or family were informed about the Rapid Response Team and its purpose. ADMISSION ASSESSMENT COMPLETED BY ALLEN MAHAJAN WEIGHT COUNT OPERATOR.
[2019-02-02 16:18] VITALS: BP 158/67
[2019-02-02] MEDS: NS IV 1000 ML 1,000 ML IV SCH ×2 (16:39→23:17)
[2019-02-02] MEDS: metroNIDAZOLE 500MG/100ML IVPB 100 ML IV SCH ×2 (16:49→23:10)
[2019-02-02 17:02] VITALS: BP 158/67
--- NOTE | 2019-02-02 17:03 | NUR ---
DR. ALY NOTIFIED THAT PT HAS BEEN OFF ELIQUIS AND TO SEE IF HE WANTED IT RESTARTED OR OTHER DVT PROPHYLAXIS.
--- NOTE | 2019-02-02 18:03 | HISTORY AND PHYSICAL ---
DATE OF SERVICE: HISTORY OF PRESENT ILLNESS: The patient is an 83-year-old female who presented to the Emergency Department with abdominal pain. She states that the pain occurred last night and then persisted. She does have a history of a right-sided colon cancer and underwent a laparoscopic right hemicolectomy in 2017. She underwent her second followup colonoscopy just a few days ago and only diverticulosis was identified of the sigmoid and descending colon. The anastomosis was normal and there were no recurrent lesions. A CT scan was performed, which did show a small amount of free air, most likely secondary to a perforated diverticulum. She although did not show any systemic symptoms, does have some abdominal pain in the mid portion of the abdomen; however, no peritoneal signs. She does not report any fever, no chills. PAST MEDICAL HISTORY: Right colon cancer, atrial fibrillation, hypertension and COPD. PAST SURGICAL HISTORY: Laparoscopic right hemicolectomy, laparoscopic cholecystectomy, foot surgery. ALLERGIES: PENICILLIN, IODINE, BACTRIM. MEDICATIONS: Apixaban, metoprolol, montelukast. SOCIAL HISTORY: Negative smoke, negative alcohol. FAMILY HISTORY: Noncontributory. Vital signs - temperature 37.8, blood pressure respirations, 99% on room air. REVIEW OF SYSTEMS: Well-nourished female, currently in no acute distress. She is not experiencing any shortness of breath or difficulty breathing. No chest pain, palpitations, diaphoresis. No nausea or vomiting; however, has not felt hungry. Has not had a bowel movement since last colonoscopy. No fever or chills, no recent inadvertent weight loss. All other review of systems is negative. PHYSICAL EXAMINATION: CHEST: Clear, few scattered rales bilaterally. HEART: Regular, no murmurs. EXTREMITIES: No lower extremity edema, negative Homans sign. HEENT: No scleral icterus. NECK: No cervical lymphadenopathy. ABDOMEN: Soft, nondistended. There is pain in the epigastric as well as the supraumbilical region with voluntary guarding, no rebound. SKIN: Warm, dry. ASSESSMENT AND PLAN: An 83-year-old female with a perforated diverticula status post recent colonoscopy. At this time, this patient appears to have stable vital signs and does not appear septic and due to her medical comorbidities and age, we will attempt conservative management which would be acceptable with bowel rest, IV antibiotics and possible drain placement if there is any fluid accumulation or abscess formation. Job ID: [id number] DocumentID: [id number] Dictated Date: 02/02/2019 17:20:21 Leather Piece Inspector Date: 02/02/2019 18:03:38 Dictated By: STEPHANY ALY MD MTDD
[2019-02-02] MEDS: ENOXAPARIN 30 MG/0.3 ML (LOVENOX) SYR SC SCH (19:54)
[2019-02-02] MEDS: morphine INJ 4 MG/ML 1 ML (VIAL/SYRINGE) IV PRN (19:54)
[2019-02-02] MEDS: FAMOTIDINE 20MG/2ML IV (PEPCID) IV SCH (19:54)
[2019-02-02 20:00] VITALS: BP 131/61
[2019-02-02 23:55] VITALS: BP 122/65
[2019-02-03 04:00] VITALS: BP 130/61
[2019-02-03] MEDS: NS IV 1000 ML 1,000 ML IV SCH ×2 (05:15→11:43)
[2019-02-03] MEDS: metroNIDAZOLE 500MG/100ML IVPB 100 ML IV SCH ×3 (05:16→17:44)
[2019-02-03 05:27] LABS: BASOPHILS % (AUTO) 0 % (0-10); EOSINOPHILS % (AUTO) 0 % (0-10); HEMATOCRIT 32 % (35-52); HEMOGLOBIN 10.4 G/DL (11.5-16.0); LYMPHOCYTES # (AUTO) 0.8 X 10^3 (1.0-4.0); LYMPHOCYTES % (AUTO) 5 % (12-44); MEAN CORPUSCULAR HEMOGLOBIN 31 PG (25-34); MEAN CORPUSCULAR HGB CONC 32 G/DL (32-36); MEAN CORPUSCULAR VOLUME 96 FL (80-99); MEAN PLATELET VOLUME 10.2 FL (7.4-10.4); MONOCYTES # (AUTO) 0.5 X 10^3 (0.0-1.0); MONOCYTES % (AUTO) 4 % (0-12); NEUTROPHILS # (AUTO) 14.2 X 10^3 (1.8-7.8); NEUTROPHILS % (AUTO) 91 % (42-75); PLATELET COUNT 158 10^3/uL (130-400); RED CELL DISTRIBUTION WIDTH 14.8 % (10.0-14.5); WHITE BLOOD COUNT 15.6 10^3/uL (4.3-11.0)
[2019-02-03 05:48] LABS: ALBUMIN 2.9 GM/DL (3.2-4.5); BILIRUBIN,TOTAL 0.6 MG/DL (0.1-1.0); CALCIUM 7.6 MG/DL (8.5-10.1); CREATININE SERUM 0.91 MG/DL (0.60-1.30); POTASSIUM 3.8 MMOL/L (3.6-5.0); TOTAL PROTEIN 5.3 GM/DL (6.4-8.2)
[2019-02-03 07:30] VITALS: BP 136/61
--- NOTE | 2019-02-03 08:38 | NUR ---
SPOKE WITH PT, WENT THRU THE EXT MED HISTORY AND CALLED [facility] TO COMPLETE THE MED REC. PT WAS ABLE TO TELL ME HOW/WHEN SHE TAKES EACH OF HER MEDICATIONS. MACHO: PT HAS NOT TAKEN THIS MED SINCE Wednesday01-30-2019 DUE TO HER COLONOSCOPY. THE LAST TIME [facility] FILLED THIS WAS 10-05-2018 #60, HOWEVER THE PT SAID SHE HAD BEEN GETTING SAMPLES FROM DR. HILTON. I ASKED IF SHE STILL HAD SAMPLES OR IF SHE HAD RUN OUT; SHE INDICATED SHE STILL HAD SOME AT HOME. WHEN I CALLED [facility]ICE THEY WERE CLOSED DUE TO THE HOLIDAY. OTC MEDS: TYLENOL MTV VIT D CALCIUM W/ VIT D
[2019-02-03] MEDS: ENOXAPARIN 30 MG/0.3 ML (LOVENOX) SYR SC SCH ×2 (08:54→20:33)
[2019-02-03] MEDS: morphine INJ 4 MG/ML 1 ML (VIAL/SYRINGE) IV PRN (10:23)
[2019-02-03 11:05] VITALS: BP 135/60
--- NOTE | 2019-02-03 11:51 | Progress Note ---
Subjective Date Seen by a Provider: Feb 03, 2019 Time Seen by a Provider: 10:15 Subjective/Events-last exam Patient seen with Dr. Gaston. Patient reports doing better. Still having abdominal pain but is improved. No N/V. No F/C. Does report she has passed some flatus and belching. Focused Exam Lactate Level 02/02/19 15:00: Lactic Acid Level 1.85 Objective Exam Vital Signs Date Time Temp Pulse Resp B/P (MAP) Pulse Ox O2 Delivery O2 Flow Rate FiO2 02/03/19 11:05 37.1 82 22 135/60 (85) 97 Room Air 02/03/19 07:30 36.8 88 18 136/61 (86) 95 Room Air 02/03/19 04:00 37.1 92 18 130/61 (84) 96 Room Air 02/02/19 23:55 37.6 89 18 122/65 (84) 95 Room Air 02/02/19 20:00 Room Air 02/02/19 20:00 37.8 90 18 131/61 (84) 95 Room Air 02/02/19 17:02 37.5 97 20 158/67 99 Room Air 02/02/19 16:18 37.8 97 20 158/67 99 Room Air 02/02/19 16:13 Room Air 02/02/19 15:47 36.7 87 14 136/58 (103) 99 Room Air 02/02/19 13:40 36.7 95 11 153/78 (103) 97 Room Air I & O 02/03/19 07:00 Intake Total 4450 ml Output Total 200 ml Balance 4250 ml Capillary Refill : Less Than 3 Seconds General Appearance: No Apparent Distress, WD/WN Neck: Full Range of Motion, Normal Inspection, Supple Respiratory: Normal Breath Sounds, No Accessory Muscle Use, No Respiratory Distress Cardiovascular: Regular Rate, Rhythm, No Murmur Gastrointestinal: normal bowel sounds, soft, tenderness (Diffuse) Extremity: Normal Capillary Refill, Normal Inspection, Normal Range of Motion Neurologic/Psychiatric: Alert, Oriented x3 Skin: Normal Color, Warm/Dry Results Lab Laboratory Tests 02/02/19 13:50: White Blood Count 19.4H, Red Blood Count 4.08L, Hemoglobin 12.6, Hematocrit 38, Mean Corpuscular Volume 93, Mean Corpuscular Hemoglobin 31, Mean Corpuscular Hemoglobin Concent 33, Red Cell Distribution Width 14.8H, Platelet Count 224, Mean Platelet Volume 9.8, Neutrophils (%) (Auto) 92H, Lymphocytes (%) (Auto) 4L, Monocytes (%) (Auto) 4, Eosinophils (%) (Auto) 0, Basophils (%) (Auto) 0, Neutrophils # (Auto) 17.9H, Lymphocytes # (Auto) 0.8L, Monocytes # (Auto) 0.7, Eosinophils # (Auto) 0.0, Basophils # (Auto) 0.0, Neutrophils % (Manual) 91, Lymphocytes % (Manual) 3, Monocytes % (Manual) 2, Band Neutrophils 4, Blood Morphology Comment NORMAL, Sodium Level 135, Potassium Level 4.0, Chloride Level 100, Carbon Dioxide Level 21, Anion Gap 14, Blood Urea Nitrogen 27H, Creatinine 1.28, Estimat Glomerular Filtration Rate 40, BUN/Creatinine Ratio 21, Glucose Level 114H, Calcium Level 9.1, Corrected Calcium 9.1, Total Bilirubin 0.8, Aspartate Amino Transf (AST/SGOT) 13, Alanine Aminotransferase (ALT/SGPT) 9, Alkaline Phosphatase 67, Total Protein 6.7, Albumin 4.0, Lipase 10 02/02/19 13:56: Urine Color YELLOW, Urine Clarity CLEAR, Urine pH 5.5, Urine Specific [place] >=1.030, Urine Protein 1+H, Urine Glucose (UA) NEGATIVE, Urine Ketones TRACEH, Urine Nitrite NEGATIVE, Urine Bilirubin 1+H, Urine Urobilinogen 0.2, Urine Leukocyte Esterase TRACE, Urine RBC (Auto) 2+H, Urine RBC NONE, Urine WBC 10-25H , Urine Squamous Epithelial Cells 2-5, Urine Crystals NONE, Urine Bacteria MODE RATEH, Urine Casts NONE, Urine Mucus NEGATIVE, Urine Culture Indicated YES 02/02/19 15:00: Lactic Acid Level 1.85 02/03/19 05:00: White Blood Count 15.6H, Red Blood Count 3.39L, Hemoglobin 10.4L, Hematocrit 32L , Mean Corpuscular Volume 96, Mean Corpuscular Hemoglobin 31, Mean Corpuscular Hemoglobin Concent 32, Red Cell Distribution Width 14.8H, Platelet Count 158, Mean Platelet Volume 10.2, Neutrophils (%) (Auto) 91H, Lymphocytes (%) (Auto) 5L , Monocytes (%) (Auto) 4, Eosinophils (%) (Auto) 0, Basophils (%) (Auto) 0, Neutrophils # (Auto) 14.2H, Lymphocytes # (Auto) 0.8L, Monocytes # (Auto) 0.5, Eosinophils # (Auto) 0.0, Basophils # (Auto) 0.0, Sodium Level 136, Potassium Level 3.8, Chloride Level 109H, Carbon Dioxide Level 17L, Anion Gap 10, Blood Urea Nitrogen 20H, Creatinine 0.91, Estimat Glomerular Filtration Rate 59, BUN/Creatinine Ratio 22, Glucose Level 102, Calcium Level 7.6L, Corrected Calcium 8.5, Total Bilirubin 0.6, Aspartate Amino Transf (AST/SGOT) 13, Alanine Aminotransferase (ALT/SGPT) 7, Alkaline Phosphatase 59, Total Protein 5.3L, Albumin 2.9L Assessment/Plan Assessment/Plan Assess & Plan/Chief Complaint An 83 year old female with a perforated diverticula who is S/P recent colonoscopy. VSS. WBC 15.6 Continue IV fluids, pain, nausea meds, abx. Encourage ambulation. Will start Ice chips. Continue to monitor, will check labs in AM. Clinical Quality Measures DVT/VTE Risk/Contraindication: Risk Factor Score Per Nursin RFS Level Per Nursing on Admit: 3=High NUBIA AREVALO APRN Feb 03, 2019 11:51 POS
[2019-02-03] MEDS ORDERED: HYDROcodone/APAP 7.5 MG/325 MG (LORTAB, LORCET PLUS) TABLET PO PRN (12:00)
--- NOTE | 2019-02-03 12:00 | NUR ---
DR JEFFREY NOTIFIED OF CONSULT
--- NOTE | 2019-02-03 14:23 | NUR ---
Pastoral care visit.
[2019-02-03] MEDS ORDERED: meTOprolol TARTRATE 25 MG (LOPRESSOR) TABLET PO ONE (15:00)
[2019-02-03 15:01] VITALS: BP 135/60
--- NOTE | 2019-02-03 15:23 | Consultation - Hospitalist ---
HPI History of Present Illness: HPI/Chief Complaint Lisette Miramontes is an 83yoF with PMH HTN, paroxysmal AFib, asthma, colon cancer s/p right hemicolectomy 2017, who presented one day after a colonoscopy with abdominal pain and was admitted with colon perforation. She reports that after the procedure she had abdominal pain which radiated to her back and her sh oulder. She had nausea but no vomiting. She denies fevers and chills. She denies chest pain and dyspnea. Source: patient Exam Limitations: no limitations Date Seen 02/03/19 Attending Physician Dick Gaston MD PCP Eddy Max MD Referring Physician Date of Admission Feb 02, 2019 at 15:00 Home Medications & Allergies Home Medications Reviewed patient Home Medication Reconciliation performed by pharmacy medication reconciliations factory maintenance technician and/or nursing. Patients Allergies have been reviewed. Allergies Allergies Coded Allergies Penicillins (Unverified Allergy, Mild, 02/02/19) iodine (Unverified Allergy, Mild, 02/02/19) Sulfa (Sulfonamide Antibiotics) (Verified Allergy, Unknown, 02/02/19) sulfamethoxazole (Verified Allergy, Unknown, 02/02/19) trimethoprim (Verified Allergy, Unknown, 02/02/19) Past Idxfbga-Lwunmf-Frpyro Hx Past Med/Social Hx: Reviewed Nursing Past Med/Soc Hx Patient Social History Alcohol Use: Denies Use Recreational Drug Use: No 2nd Hand Smoke Exposure: No Recent Foreign Travel: No Contact w/other who traveled: No Recent Hopitalizations: No Recent Infectious Disease Expo: No Immunizations Up To Date Tetanus Booster (TDap): Unknown Pediatric: No Date of Pneumonia Vaccine: Dec 12, 2018 Date of Influenza Vaccine: Dec 12, 2018 Seasonal Allergies Seasonal Allergies: Yes Past Medical History Surgeries: Eye Surgery, Gallbladder Respiratory: Chronic Bronchitis Currently Using CPAP: No Currently Using BIPAP: No Cardiac: Atrial Fibrillation, Hypertension Reproductive: No Sexually Transmitted Disease: No HIV/AIDS: No Gastrointestinal: Diverticulosis, Chronic Diarrhea Musculoskeletal: Arthritis HEENT: Cataract Loss of Vision: Denies Hearing Impairment: Deaf Cancer: Colon Did You Recieve Any Treatments: Yes What Type of Treatment Did You: Surgical Intervention Skin/Integumentary: Recent Skin Changes History of Blood Disorders: Yes (anemia ) Adverse Reaction to Blood Rice: No (HAS HAD BLOOD WITH NO REACTION) Family History Reviewed Nursing Family Hx Cancer around heart 19 FATHER Cardiovascular disease 19 MOTHER Congenital heart disease 19 MOTHER Hypertension 19 MOTHER Respiratory disorder 19 FATHER (lung cancer) No Pertinent Family Hx Review of Systems Constitutional: malaise EENTM: no symptoms reported Respiratory: short of breath Cardiovascular: no symptoms reported Gastrointestinal: abdominal pain, nausea Genitourinary: no symptoms reported Musculoskeletal: no symptoms reported Skin: no symptoms reported Psychiatric/Neurological: No Symptoms Reported Physical Exam Physical Exam Vital Signs Vital Signs - First Documented 02/02/19 13:40 Temp 36.7 Pulse 95 Resp 11 B/P (MAP) 153/78 (103) Pulse Ox 97 O2 Delivery Room Air Capillary Refill : Less Than 3 Seconds Height, Weight, BMI Height: 5'2.00" Weight: 180lbs. 0.0oz. 81.053875nf; 32.20 BMI Method:Stated General Appearance: Anxious, Obese HEENT: PERRL/EOMI, Pharynx Normal Neck: Normal Inspection, Supple Respiratory: Lungs Clear, Normal Breath Sounds, No Respiratory Distress Cardiovascular: Regular Rate, Rhythm, No Edema, No Murmur Gastrointestinal: Soft, Abnormal Bowel Sounds (hypoactive bowel sounds), Distended, Tenderness (diffusely) Extremity: Normal Inspection, Non Tender, No Pedal Edema Neurologic/Psychiatric: Alert, Oriented x3, No Motor/Sensory Deficits, Normal Mood/Affect Skin: Normal Color, Warm/Dry Results Results/Procedures Labs Laboratory Tests 02/02/19 13:50 02/03/19 05:00 Patient resulted labs reviewed. Imaging: Reviewed Imaging Report Assessment/Plan Assessment and Plan Assess & Plan/Chief Complaint Colon perforation History of colon cancer History of hemicolectomy -CT on admission with moderate free air without clear source though the prior anastomosis site was favored, diverticulosis without diverticulitis -Surgery primary, managing conservatively -Remains NPO -Receiving IV fluids, transition to LR -Levaquin and Flagyl ordered -Repeat imaging tomorrow UTI -UA consistent with UTI -Urine culture pending -Receiving Levaquin HTN -Meds held due to NPO status Paroxysmal A-Fib -Holding Eliquis for possible surgery, resume when able -Resume metoprolol when able to take oral meds Asthma -Montelukast held DVT Prophylaxis: SCDs, pharmacologic prophylaxis held for possible surgery Diagnosis/Problems Diagnosis/Problems (1) Colon perforation Status: Acute (2) Free intraperitoneal air Status: Acute (3) History of hemicolectomy Status: Chronic (4) History of colon cancer Status: Chronic (5) HTN (hypertension) Status: Chronic Qualifiers: Hypertension type: essential hypertension Qualified Codes: I10 - Essential (primary) hypertension (6) Paroxysmal A-fib Status: Chronic (7) Asthma Status: Chronic Clinical Quality Measures DVT/VTE Risk/Contraindication: Risk Factor Score Per Nursin RFS Level Per Nursing on Admit: 3=High GILES JEFFREY MD Feb 03, 2019 15:23 POS
[2019-02-03] MEDS: LACTATED RINGERS 1,000 ML IV SCH (15:27)
--- NOTE | 2019-02-03 15:31 | NUR ---
TALKED TO DR JEFFREY. PATIENT IS NPO WITH ICE CHIPS. HE DOES NOT WANT TO CHANGE THE METOPROLOL TO IV. HOLD THE PO METOPROLOL FOR NOW.
[2019-02-03 16:05] VITALS: BP 150/65
[2019-02-03 20:27] VITALS: BP 145/66
[2019-02-03] MEDS: FAMOTIDINE 20MG/2ML IV (PEPCID) IV SCH (20:40)
[2019-02-03] MEDS ORDERED: meTOprolol TARTRATE 50 MG (LOPRESSOR) TAB PO SCH (21:00)
[2019-02-04] VITALS: BP 173/72
[2019-02-04] MEDS: metroNIDAZOLE 500MG/100ML IVPB 100 ML IV SCH ×5 (00:14→23:29)
[2019-02-04] MEDS: LACTATED RINGERS 1,000 ML IV SCH ×4 (00:15→23:30)
[2019-02-04 04:00] VITALS: BP 138/89
[2019-02-04 05:35] LABS: BASOPHILS % (AUTO) 0 % (0-10); EOSINOPHILS # (AUTO) 0.1 10^3/uL (0.0-0.3); EOSINOPHILS % (AUTO) 1 % (0-10); HEMATOCRIT 33 % (35-52); HEMOGLOBIN 10.8 G/DL (11.5-16.0); LYMPHOCYTES # (AUTO) 0.7 X 10^3 (1.0-4.0); LYMPHOCYTES % (AUTO) 5 % (12-44); MEAN CORPUSCULAR HEMOGLOBIN 31 PG (25-34); MEAN CORPUSCULAR HGB CONC 32 G/DL (32-36); MEAN CORPUSCULAR VOLUME 97 FL (80-99); MEAN PLATELET VOLUME 9.9 FL (7.4-10.4); MONOCYTES # (AUTO) 0.6 X 10^3 (0.0-1.0); MONOCYTES % (AUTO) 5 % (0-12); NEUTROPHILS % (AUTO) 90 % (42-75); PLATELET COUNT 169 10^3/uL (130-400); RED CELL DISTRIBUTION WIDTH 15.1 % (10.0-14.5); WHITE BLOOD COUNT 13.3 10^3/uL (4.3-11.0)
[2019-02-04 06:00] LABS: ALBUMIN 2.9 GM/DL (3.2-4.5); BILIRUBIN,TOTAL 0.5 MG/DL (0.1-1.0); CALCIUM 8.1 MG/DL (8.5-10.1); CREATININE SERUM 0.89 MG/DL (0.60-1.30); POTASSIUM 3.9 MMOL/L (3.6-5.0); TOTAL PROTEIN 5.6 GM/DL (6.4-8.2)
[2019-02-04 07:25] VITALS: BP 176/72
--- NOTE | 2019-02-04 07:46 | Diagnostic Imaging Report ---
INDICATION: Abdominal pain status post colonoscopy COMPARISON: 01/11/2017 chest, 01/25/2019 CT abdomen and pelvis FINDINGS: Single view of the chest demonstrates known pneumoperitoneum. The heart is prominent but stable. There is a probable trace effusion in the left costophrenic angle. There is no pneumothorax. The heart is prominent without pulmonary edema. IMPRESSION: 1. Known pneumoperitoneum 2. New trace left-sided effusion Dictated by: Dictated on workstation # [id number]
[2019-02-04] MEDS: ENOXAPARIN 30 MG/0.3 ML (LOVENOX) SYR SC SCH ×2 (09:04→20:07)
--- NOTE | 2019-02-04 10:25 | Progress Note ---
Subjective Date Seen by a Provider: Feb 04, 2019 Time Seen by a Provider: 10:10 Subjective/Events-last exam Patient seen with Dr. Gaston. Patient reports continues to improve. Still having abdominal discomfort but is getting better. No N/V. No F/C. Did have small BM this AM. Focused Exam Lactate Level 02/02/19 15:00: Lactic Acid Level 1.85 Objective Exam Vital Signs Date Time Temp Pulse Resp B/P (MAP) Pulse Ox O2 Delivery O2 Flow Rate FiO2 02/04/19 09:17 96 Room Air 02/04/19 07:25 37.3 86 20 176/72 (106) 97 Room Air 02/04/19 04:00 36.8 82 18 138/89 (105) 97 Room Air 02/04/19 00:00 37.0 85 22 173/72 (105) 95 Room Air 02/03/19 23:18 85 95 02/03/19 20:27 37.0 85 22 145/66 (92) 95 Room Air 02/03/19 20:15 95 Room Air 02/03/19 16:05 37.8 82 20 150/65 (93) 98 Room Air 02/03/19 15:01 37.1 82 97 02/03/19 11:05 37.1 82 22 135/60 (85) 97 Room Air I & O 02/04/19 07:00 Intake Total 1300 ml Balance 1300 ml Capillary Refill : Less Than 3 Seconds General Appearance: No Apparent Distress, WD/WN Neck: Full Range of Motion, Non Tender, Supple Respiratory: Normal Breath Sounds, No Accessory Muscle Use, No Respiratory Distress Cardiovascular: Regular Rate, Rhythm, No Murmur Gastrointestinal: normal bowel sounds, soft, tenderness Extremity: Normal Capillary Refill, Normal Inspection, Normal Range of Motion Neurologic/Psychiatric: Alert, Oriented x3 Skin: Normal Color, Warm/Dry Results Lab Laboratory Tests 02/04/19 05:04: White Blood Count 13.3H, Red Blood Count 3.45L, Hemoglobin 10.8L, Hematocrit 33L , Mean Corpuscular Volume 97, Mean Corpuscular Hemoglobin 31, Mean Corpuscular Hemoglobin Concent 32, Red Cell Distribution Width 15.1H, Platelet Count 169, Mean Platelet Volume 9.9, Neutrophils (%) (Auto) 90H, Lymphocytes (%) (Auto) 5L, Monocytes (%) (Auto) 5, Eosinophils (%) (Auto) 1, Basophils (%) (Auto) 0, Neutrophils # (Auto) 12.0H, Lymphocytes # (Auto) 0.7L, Monocytes # (Auto) 0.6, Eosinophils # (Auto) 0.1, Basophils # (Auto) 0.0, Sodium Level 137, Potassium Level 3.9, Chloride Level 111H, Carbon Dioxide Level 15L, Anion Gap 11, Blood Urea Nitrogen 17, Creatinine 0.89, Estimat Glomerular Filtration Rate 60, BUN/Creatinine Ratio 19, Glucose Level 83, Calcium Level 8.1L, Corrected Calcium 9.0, Total Bilirubin 0.5, Aspartate Amino Transf (AST/SGOT) 13, Alanine Aminotransferase (ALT/SGPT) 8, Alkaline Phosphatase 70, Total Protein 5.6L, Albumin 2.9L Microbiology 02/02/19 Blood Culture - Preliminary, Resulted No growth 02/02/19 Urine Culture - Final, Complete 3 or more isolates Assessment/Plan Assessment/Plan Assess & Plan/Chief Complaint An 83 year old female with a perforated diverticula who is S/P recent colonoscopy. VSS. WBC 13.3 Continue IV fluids, pain, nausea meds, abx. Encourage ambulation. Will start clear liquid diet. Repeat CT tomorrow Continue to monitor, will check labs in AM. Clinical Quality Measures DVT/VTE Risk/Contraindication: Risk Factor Score Per Nursin RFS Level Per Nursing on Admit: 3=High NUBIA AREVALO APRN Feb 04, 2019 10:25 POS
--- NOTE | 2019-02-04 10:36 | Physical Therapy Evaluation ---
PT Evaluation-General Medical Diagnosis Admission Date Feb 02, 2019 at 15:00 Medical Diagnosis: colon perforation, UTI Onset Date: Feb 02, 2019 Therapy Diagnosis Therapy Diagnosis: impaired mobility Height/Weight Height (Feet): 5 Height (Inches): 2.00 Weight (Pounds): 180 Weight (Ounces): 0.0 Precautions Precautions/Isolations: Fall Prevention, Standard Precautions Referral Physician: Melisa Reason for Referral: Evaluation/Treatment Medical History Pertinent Medical History: Atrial Fib, Arthritis, COPD, Diverticulitis, HTN Additional Medical History colon cancer, laproscopic (R) hemicolectomy, asthma Current History Underwent colonoscopy and later found to have a perforation. Admitted via ED. Reviewed History: Yes Social History Home: Single Level Current Living Status: Children Entry Into Home: Stairs With Railing PT Steps Into Home: 3 PT Steps Inside Home: 0 single step inside garage Prior Prior Level of Function SCALE: Activities may be completed with or without assistive devices. 6-Yuznmigbum-fdubosy completes the activity by him/herself with no assistance from a helper. 5-Set-up or Clean-up Assistance-helper sets up or cleans up; patient completes activity. Corona assists only prior to or following the activity. 4-Supervision or Touching Assistance-helper provides verbal cues and/or touching/steadying and/or contact guard assistance as patient completes activity. Assistance may be provided throughout the activity or intermittently. 3-Partial/Moderate Assistance-helper does LESS THAN HALF the effort. Corona lifts, holds or supports trunk or limbs, but provides less than half the effort. 2-Substantial/Maximal Assistance-helper does MORE THAN HALF the effort. Corona lifts or holds trunk or limbs and provides more than half the effort. 9-Djpmmwlcn-xkmklp does ALL the effort. Patient does none of the effort to complete the activity. Or, the assistance of 2 or more helpers is required for the patient to complete the activity. If activity was not attempted, code reason: 7-Patient Refused. 9-Not Applicable-not attempted and the patient did not perform the activity before the current illness, exacerbation or injury. 10-Not Attempted due to Environmental Limitations-(lack of equipment, weather restraints, etc.). 88-Not Attempted due to Medical Conditions or Safety Concerns. Bed Mobility: 6 Transfers (B,C,W/C): 6 Gait: 6 Stairs: 6 Indoor Mobility (Ambulation): Independent Stairs: Independent Prior Devices Use: None Prior Device Use: Pt has a walker, but was not using it prior to admit. PT Evaluation-Current Subjective Abdominal pain and bloating. Pain Numeric Pain Scale: 4 Location: Right Location Body Site: Abdomen Pain Description: Pressure Pt/Family Goals Return home Objective Patient Orientation: Person, Place, Time, Situation Attachments: IV ROM/Strength ROM Upper Extremities WFL ROM Lower Extremities WFL Strength Upper Extremities WFL Strength Lower Extremities WFL Neuromuscular (Tone, Coordination, Reflexes) Intact Sensory Vision: Functional Hearing: Functional Hand Dominance: Right Sensation Right Upper Extremit: Intact Sensation Left Upper Extremity: Intact Sensation Right Lower Extremit: Intact Sensation Left Lower Extremity: Intact Transfers Roll Left to Right (QC): 5 Sit to Lying (QC): 5 Lying to Sitting/Side of Bed(Q: 5 Sit to Stand (QC): 5 Chair/Jqw-gq-Mnebv Xfer(QC): 5 Car Transfer (QC): 88 Gait Does the Patient Walk?: Yes Mode of Locomotion: Walk Anticipated Mode of Locomotion: Walk Walk 10 feet (QC): 5 Walk 50 ft with 2 Turns(QC): 88 Walk 150 ft (QC): 88 Walking 10ft/uneven surface-QC: 88 (88) Distance: 30ft Gait Assistive Device: FWW Wheelchair Training Does the Pt Use a Wheelchair?: No Wheel 50 ft with 2 turns (QC): 09 Wheel 150 ft (QC): 09 Type of Wheelchair: Manual Stairs 1 Step (curb) (QC): 88 4 Steps (QC): 88 12 Steps (QC): 88 Balance Sitting Static: Normal Sitting Dynamic: Normal Standing Static: Good Standing Dynamic: Good Picking up an Object (QC): 88 Assessment/Needs Pt showed good stability during transfer and gait. Pt is coherent and motivated to return to home. Rehab Potential: Good PT Cloth Measurer Machine Goals Custodial Goals PT Cloth Measurer Machine Goals Time Frame: Feb 11, 2019 Roll Left & Right (QC): 6 Sit to Lying (QC): 6 Lying-Sitting on Side/Bed(QC): 6 Sit to Stand (QC): 6 Chair/Aab-nu-Ccfuy Xfer(QC): 6 Toilet Transfer (QC): 6 Car Transfer (QC): 6 Does the Patient Walk: Yes Walk 10 feet (QC): 5 Walk 50ft with 2 Turns (QC): 5 Walk 150 ft (QC): 5 Walking 10ft on Uneven Surface: 5 1 Step (curb) (QC): 5 4 Steps (QC): 5 12 Steps (QC): 5 Picking up an Object (QC): 5 Does the Pt use WC or Scooter?: No Type: N/A Type: N/A PT Plan Problem List Problem List: Activity Tolerance, Gait, Transfer Treatment/Plan Treatment Plan: Continue Plan of Care Treatment Duration: Feb 11, 2019 Frequency: 6 times per week Estimated Hrs Per Day: .25 hour per day Time/GCodes Time In: 1000 Time Out: 1030 Total Billed Treatment Time: 30 Total Billed Treatment 1, varghese 30 VICTOR M HOYT PT Feb 04, 2019 10:36 POS
--- NOTE | 2019-02-04 10:37 | Progress Note - Hospitalist ---
Subjective HPI/CC On Admission Date Seen by Provider: Feb 04, 2019 Time Seen by Provider: 08:40 Lisette Miramontes is an 83yoF with PMH HTN, paroxysmal AFib, asthma, colon cancer s/p right hemicolectomy 2017, who presented one day after a colonoscopy with abdominal pain and was admitted with colon perforation. She reports that after the procedure she had abdominal pain which radiated to her back and her shoulder. She had nausea but no vomiting. She denies fevers and chills. She denies chest pain and dyspnea. Hospital medicine has been consulted for medical management. Subjective/Events-last exam She thinks she might feel a little bit better. She still has abdominal pain. She denies nausea and vomiting. She had a bowel movement this morning. She denies fevers and chills. She denies chest pain and dyspnea. Focused Exam Lactate Level 02/02/19 15:00: Lactic Acid Level 1.85 Objective Exam Vital Signs Vital Signs Date Time Temp Pulse Resp B/P (MAP) Pulse Ox O2 Delivery O2 Flow Rate FiO2 02/04/19 09:17 96 Room Air 02/04/19 07:25 37.3 86 20 176/72 (106) Capillary Refill : Less Than 3 Seconds General Appearance: No Apparent Distress, WD/WN, Obese HEENT: PERRL/EOMI Neck: Normal Inspection, Supple Respiratory: Lungs Clear, Normal Breath Sounds, No Respiratory Distress Cardiovascular: Regular Rate, Rhythm, No Edema, No Murmur Gastrointestinal: Normal Bowel Sounds, Soft; No Distended, No Guarding; Tenderness Extremity: Normal Inspection, Non Tender, No Pedal Edema Neurologic/Psychiatric: Alert, Oriented x3, No Motor/Sensory Deficits, Normal Mood/Affect Skin: Normal Color, Warm/Dry Results/Procedures Lab Laboratory Tests 02/04/19 05:04 Patient resulted labs reviewed. Imaging: Reviewed Imaging Report Assessment/Plan Assessment and Plan Assess & Plan/Chief Complaint Colon perforation History of colon cancer History of hemicolectomy -CT on admission with moderate free air without clear source though the prior anastomosis site was favored, diverticulosis without diverticulitis -Surgery primary, managing conservatively -NPO -Continue IV fluids -Levaquin and Flagyl ordered UTI -UA consistent with UTI -Urine culture appears to be contaminated -Receiving Levaquin HTN -Meds held due to NPO status Paroxysmal A-Fib -Holding Eliquis for possible surgery, resume when able -Resume metoprolol when able to take oral meds Asthma -Montelukast held DVT Prophylaxis: SCDs, pharmacologic prophylaxis held for possible surgery Diagnosis/Problems Diagnosis/Problems (1) Colon perforation Status: Acute (2) Free intraperitoneal air Status: Acute (3) History of hemicolectomy Status: Chronic (4) History of colon cancer Status: Chronic (5) HTN (hypertension) Status: Chronic Qualifiers: Hypertension type: essential hypertension Qualified Codes: I10 - Essential (primary) hypertension (6) Paroxysmal A-fib Status: Chronic (7) Asthma Status: Chronic Clinical Quality Measures DVT/VTE Risk/Contraindication: Risk Factor Score Per Nursin RFS Level Per Nursing on Admit: 3=High GILES JEFFREY MD Feb 04, 2019 10:36 POS
[2019-02-04 11:57] VITALS: BP 155/70
[2019-02-04] MEDS: LEVOFLOXACIN 750 MG/D5W 150 ML PRE-MIX IV SCH (15:12)
[2019-02-04] MEDS: RT-ALBUTEROL SULF 2.5 MG/3 ML PRE-MIX VIAL INH PRN (16:00)
[2019-02-04 16:36] VITALS: BP 160/72
[2019-02-04] MEDS: FAMOTIDINE 20MG/2ML IV (PEPCID) IV SCH (20:05)
[2019-02-04] MEDS: morphine INJ 4 MG/ML 1 ML (VIAL/SYRINGE) IV PRN (20:06)
[2019-02-04] MEDS: ONDANSETRON 4 MG/2 ML (SDV) Z0FRAN IV PRN (20:07)
[2019-02-04 20:45] VITALS: BP 152/65
[2019-02-04] MEDS ORDERED: MELATONIN 3 MG TABLET ONE (22:29)
[2019-02-05 00:15] VITALS: BP 150/71
[2019-02-05 03:49] VITALS: BP 146/74
[2019-02-05 06:17] LABS: BASOPHILS % (AUTO) 0 % (0-10); EOSINOPHILS # (AUTO) 0.2 10^3/uL (0.0-0.3); EOSINOPHILS % (AUTO) 2 % (0-10); HEMATOCRIT 34 % (35-52); HEMOGLOBIN 10.8 G/DL (11.5-16.0); LYMPHOCYTES # (AUTO) 0.7 X 10^3 (1.0-4.0); LYMPHOCYTES % (AUTO) 7 % (12-44); MEAN CORPUSCULAR HEMOGLOBIN 31 PG (25-34); MEAN CORPUSCULAR HGB CONC 32 G/DL (32-36); MEAN CORPUSCULAR VOLUME 95 FL (80-99); MEAN PLATELET VOLUME 9.7 FL (7.4-10.4); MONOCYTES # (AUTO) 0.7 X 10^3 (0.0-1.0); MONOCYTES % (AUTO) 7 % (0-12); NEUTROPHILS # (AUTO) 7.8 X 10^3 (1.8-7.8); NEUTROPHILS % (AUTO) 84 % (42-75); PLATELET COUNT 188 10^3/uL (130-400); RED CELL DISTRIBUTION WIDTH 14.8 % (10.0-14.5); WHITE BLOOD COUNT 9.2 10^3/uL (4.3-11.0)
[2019-02-05 06:32] LABS: ALANINE AMINOTRANSFERASE 8 U/L (0-55); ALBUMIN 2.7 GM/DL (3.2-4.5); ALKALINE PHOSPHATASE 60 U/L (40-136); BILIRUBIN,TOTAL 0.5 MG/DL (0.1-1.0); BUN/CREATININE RATIO 17; CALCIUM 8.2 MG/DL (8.5-10.1); CARBON DIOXIDE 18 MMOL/L (21-32); CHLORIDE 108 MMOL/L (98-107); CREATININE SERUM 0.77 MG/DL (0.60-1.30); GFR ESTIMATED > 60; GLUCOSE 99 MG/DL (70-105); POTASSIUM 3.6 MMOL/L (3.6-5.0); SODIUM 137 MMOL/L (135-145); TOTAL PROTEIN 5.3 GM/DL (6.4-8.2)
[2019-02-05] MEDS: metroNIDAZOLE 500MG/100ML IVPB 100 ML IV SCH ×3 (06:53→17:35)
[2019-02-05] MEDS: ENOXAPARIN 30 MG/0.3 ML (LOVENOX) SYR SC SCH ×2 (07:57→20:47)
[2019-02-05 08:00] VITALS: BP 164/75
--- NOTE | 2019-02-05 10:11 | Progress Note ---
Subjective Date Seen by a Provider: Feb 05, 2019 Time Seen by a Provider: 09:30 Subjective/Events-last exam Patient seen with Dr. Gaston. Patient reports doing much better. No N/V. No F/C. Minimal abdominal pain. Tolerating clear liquid diet and having BMs. Focused Exam Lactate Level 02/02/19 15:00: Lactic Acid Level 1.85 Objective Exam Vital Signs Date Time Temp Pulse Resp B/P (MAP) Pulse Ox O2 Delivery O2 Flow Rate FiO2 02/05/19 03:49 36.4 76 19 146/74 (98) 98 Room Air 02/05/19 00:15 36.4 76 19 150/71 (97) 97 Room Air 02/04/19 20:45 36.6 88 22 152/65 (94) 97 Room Air 02/04/19 20:00 97 Room Air 02/04/19 16:36 36.8 88 24 160/72 (101) 98 Room Air 02/04/19 16:00 97 Room Air 02/04/19 11:57 36.3 101 18 155/70 (98) 100 Room Air I & O 02/05/19 07:00 Intake Total 790 ml Output Total 2 ml Balance 788 ml Capillary Refill : Less Than 3 Seconds General Appearance: No Apparent Distress, WD/WN Neck: Full Range of Motion, Normal Inspection, Supple Respiratory: Normal Breath Sounds, No Accessory Muscle Use, No Respiratory Distress Cardiovascular: Regular Rate, Rhythm, No Murmur Gastrointestinal: normal bowel sounds, soft, tenderness Extremity: Normal Capillary Refill, Normal Inspection, Normal Range of Motion Neurologic/Psychiatric: Alert, Oriented x3 Skin: Normal Color, Warm/Dry Results Lab Laboratory Tests 02/05/19 05:44: White Blood Count 9.2, Red Blood Count 3.51L, Hemoglobin 10.8L, Hematocrit 34L, Mean Corpuscular Volume 95, Mean Corpuscular Hemoglobin 31, Mean Corpuscular Hemoglobin Concent 32, Red Cell Distribution Width 14.8H, Platelet Count 188, Mean Platelet Volume 9.7, Neutrophils (%) (Auto) 84H, Lymphocytes (%) (Auto) 7L, Monocytes (%) (Auto) 7, Eosinophils (%) (Auto) 2, Basophils (%) (Auto) 0, Neutrophils # (Auto) 7.8, Lymphocytes # (Auto) 0.7L, Monocytes # (Auto) 0.7, Eosinophils # (Auto) 0.2, Basophils # (Auto) 0.0, Sodium Level 137, Potassium Level 3.6, Chloride Level 108H, Carbon Dioxide Level 18L, Anion Gap 11, Blood Urea Nitrogen 13, Creatinine 0.77, Estimat Glomerular Filtration Rate > 60, BUN/Creatinine Ratio 17, Glucose Level 99, Calcium Level 8.2L, Corrected Calcium 9.2, Total Bilirubin 0.5, Aspartate Amino Transf (AST/SGOT) 12, Alanine Aminotransferase (ALT/SGPT) 8, Alkaline Phosphatase 60, Total Protein 5.3L, Albumin 2.7L Microbiology 02/02/19 Blood Culture - Preliminary, Resulted No growth 02/02/19 Urine Culture - Final, Complete 3 or more isolates Assessment/Plan Assessment/Plan Assess & Plan/Chief Complaint An 83 year old female with a perforated diverticula who is S/P recent colonoscopy. VSS. WBC 9.2 Continue IV fluids, pain, nausea meds, abx. Encourage ambulation. Continue clear liquid diet and will await results of CT. May be able to advance diet if CT improved. Continue to monitor, will check labs in AM. Clinical Quality Measures DVT/VTE Risk/Contraindication: Risk Factor Score Per Nursin RFS Level Per Nursing on Admit: 3=High NUBIA AREVALO APRN Feb 05, 2019 10:10 POS
--- NOTE | 2019-02-05 11:29 | Progress Note - Hospitalist ---
Subjective HPI/CC On Admission Date Seen by Provider: Feb 05, 2019 Time Seen by Provider: 11:25 Lisette Miramontes is an 83yoF with PMH HTN, paroxysmal AFib, asthma, colon cancer s/p right hemicolectomy 2017, who presented one day after a colonoscopy with abdominal pain and was admitted with colon perforation. She reports that after the procedure she had abdominal pain which radiated to her back and her shoulder. She had nausea but no vomiting. She denies fevers and chills. She denies chest pain and dyspnea. Hospital medicine has been consulted for medical management. Subjective/Events-last exam Pt reports feeling much better. Having BMs. Tolerating current diet. No complaints. Focused Exam Lactate Level 02/02/19 15:00: Lactic Acid Level 1.85 Objective Exam Vital Signs Vital Signs Date Time Temp Pulse Resp B/P (MAP) Pulse Ox O2 Delivery O2 Flow Rate FiO2 02/05/19 10:08 95 Room Air 02/05/19 08:00 36.8 82 20 164/75 (104) Capillary Refill : Less Than 3 Seconds General Appearance: No Apparent Distress, WD/WN, Obese Respiratory: Lungs Clear, No Accessory Muscle Use, No Respiratory Distress Cardiovascular: Regular Rate, Rhythm, No Murmur Gastrointestinal: Normal Bowel Sounds, Non Tender, Soft Neurologic/Psychiatric: Alert, Oriented x3, Normal Mood/Affect Results/Procedures Lab Laboratory Tests 02/05/19 05:44 Patient resulted labs reviewed. Imaging: Reviewed Imaging Report Assessment/Plan Assessment and Plan Assess & Plan/Chief Complaint Colon perforation History of colon cancer History of hemicolectomy - Repeat CT today, report pending -Surgery primary, managing conservatively -CLD -Levaquin and Flagyl UTI -UA consistent with UTI -Urine culture appears to be contaminated -Receiving Levaquin HTN pAF -Resume home metoprolol -Holding Eliquis for possible surgery, resume when ok with surgery Asthma -Montelukast DVT Prophylaxis: Eliquis Clinical Quality Measures DVT/VTE Risk/Contraindication: Risk Factor Score Per Nursin RFS Level Per Nursing on Admit: 3=High PONCHO CHRISTOPHER MD Feb 05, 2019 11:29 POS
[2019-02-05] MEDS ORDERED: meTOprolol SUCCINATE 100 MG (TOPROL XL) TAB PO ONE (11:30)
[2019-02-05 12:00] VITALS: BP 193/75
--- NOTE | 2019-02-05 14:37 | Diagnostic Imaging Report ---
PROCEDURE: CT abdomen and pelvis without contrast. TECHNIQUE: Multiple contiguous axial images were obtained through the abdomen and pelvis without the use of intravenous contrast. Auto Exposure Controls were utilized during the CT exam to meet ALARA standards for radiation dose reduction. Indication: Abdominal pain, follow-up pneumoperitoneum. Comparison: 02/02/2019. Discussion: Small bilateral pleural effusions are new. The lung bases are otherwise unremarkable. Calcific density along the lateral margin of the right pleural effusion is new from the prior exam and indeterminate in etiology and clinical significance. Normal heart size. No pericardial fluid. Small-moderate pneumoperitoneum is slightly decreased from the prior exam. Anastomosis is again noted within the right colon. There is mild anasarca and mesenteric edema present, new from the prior exam. The gallbladder is surgically absent. The liver, stomach, pancreas, spleen, and adrenal glands are unremarkable. 7 mm nonobstructing left renal calculus is stable. No hydronephrosis. The aorta is normal in caliber and contains scattered atherosclerotic plaque. Extensive diverticulosis with no secondary evidence for diverticulitis. No obstruction or pneumatosis. Urinary bladder is decompressed. No adenopathy. 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 Mild T10 compression deformity is stable. Impression: 1. Mild to moderate pneumoperitoneum, slightly decreased from the prior exam. 2. New anasarca and mesenteric edema along with bilateral pleural effusions. 3. Additional chronic changes as discussed. Dictated by: Dictated on workstation # [id number]
[2019-02-05] MEDS: LACTATED RINGERS 1,000 ML IV SCH (14:42)
[2019-02-05] MEDS: RT-ALBUTEROL SULF 2.5 MG/3 ML PRE-MIX VIAL INH PRN (16:40)
[2019-02-05 16:54] VITALS: BP 168/72
[2019-02-05 20:45] VITALS: BP 124/92
[2019-02-05] MEDS: FAMOTIDINE 20MG/2ML IV (PEPCID) IV SCH (20:47)
[2019-02-05] MEDS: ONDANSETRON 4 MG/2 ML (SDV) Z0FRAN IV PRN (20:47)
[2019-02-05] MEDS: MONTELUKAST 10 MG (SINGULAIR) TAB PO SCH (21:55)
[2019-02-05] MEDS: MELATONIN 3 MG TABLET PO SCH (21:55)
--- NOTE | 2019-02-05 21:55 | NUR ---
pt states that nausea improving, still burping so request not to take PO meds at this time.
[2019-02-06] VITALS: BP 162/81
[2019-02-06] MEDS: metroNIDAZOLE 500MG/100ML IVPB 100 ML IV SCH ×3 (00:38→11:17)
[2019-02-06] MEDS: MELATONIN 3 MG TABLET PO SCH (00:39)
[2019-02-06] MEDS: MONTELUKAST 10 MG (SINGULAIR) TAB PO SCH (00:39)
[2019-02-06 04:00] VITALS: BP 132/77
[2019-02-06 05:27] LABS: BASOPHILS % (AUTO) 0 % (0-10); EOSINOPHILS # (AUTO) 0.3 10^3/uL (0.0-0.3); EOSINOPHILS % (AUTO) 4 % (0-10); HEMATOCRIT 32 % (35-52); HEMOGLOBIN 10.5 G/DL (11.5-16.0); LYMPHOCYTES # (AUTO) 0.9 X 10^3 (1.0-4.0); LYMPHOCYTES % (AUTO) 10 % (12-44); MEAN CORPUSCULAR HEMOGLOBIN 31 PG (25-34); MEAN CORPUSCULAR HGB CONC 33 G/DL (32-36); MEAN CORPUSCULAR VOLUME 94 FL (80-99); MEAN PLATELET VOLUME 9.4 FL (7.4-10.4); MONOCYTES # (AUTO) 0.8 X 10^3 (0.0-1.0); MONOCYTES % (AUTO) 10 % (0-12); NEUTROPHILS # (AUTO) 6.2 X 10^3 (1.8-7.8); NEUTROPHILS % (AUTO) 76 % (42-75); PLATELET COUNT 198 10^3/uL (130-400); RED CELL DISTRIBUTION WIDTH 14.9 % (10.0-14.5); WHITE BLOOD COUNT 8.2 10^3/uL (4.3-11.0)
[2019-02-06 05:43] LABS: ALANINE AMINOTRANSFERASE 7 U/L (0-55); ALBUMIN 2.6 GM/DL (3.2-4.5); ALKALINE PHOSPHATASE 52 U/L (40-136); BILIRUBIN,TOTAL 0.3 MG/DL (0.1-1.0); BUN/CREATININE RATIO 14; CALCIUM 7.9 MG/DL (8.5-10.1); CARBON DIOXIDE 22 MMOL/L (21-32); CHLORIDE 107 MMOL/L (98-107); CREATININE SERUM 0.77 MG/DL (0.60-1.30); GFR ESTIMATED > 60; GLUCOSE 111 MG/DL (70-105); POTASSIUM 3.3 MMOL/L (3.6-5.0); SODIUM 137 MMOL/L (135-145); TOTAL PROTEIN 4.9 GM/DL (6.4-8.2)
[2019-02-06] MEDS: LACTATED RINGERS 1,000 ML IV SCH (06:23)
[2019-02-06 08:00] VITALS: BP 168/78
[2019-02-06] MEDS: ENOXAPARIN 30 MG/0.3 ML (LOVENOX) SYR SC SCH (08:36)
[2019-02-06] MEDS: ONDANSETRON 4 MG/2 ML (SDV) Z0FRAN IV PRN (08:37)
[2019-02-06] MEDS ORDERED: meTOprolol SUCCINATE 100 MG (TOPROL XL) TAB PO SCH (09:00)
--- NOTE | 2019-02-06 10:02 | NUR ---
DISCHARGE PLANNING: Visited with patient about any anticipated discharge needs. She reports that she lives alone with her dog Cherri et that her son comes often to check on her. She denies any needs for [facility] at discharge et feels like she is getting around well. She does report that she has increased abdominal pain today et is unsure if doctor will dismiss her today or not. She did sign the IMM in anticipation of discharge et she has no concerns if she does discharge. Addendum: 02/07/19 at 1358 by JAYMIE MCNALLY RN IMM placed on patient's chart.
--- NOTE | 2019-02-06 11:23 | Physical Therapy Daily Note ---
PT Daily Note-Current Subjective Patient agrees to PT. Denies any pain but states ache/discomfort in abdomen. Pain Numeric Pain Scale: 0-No Pain Location: No Pain Reported Mental Status Patient Orientation: Normal For Age Attachments: IV Transfers SCALE: Activities may be completed with or without assistive devices. 6-Kfrnfysfhm-vhrqzop completes the activity by him/herself with no assistance from a helper. 5-Set-up or Clean-up Assistance-helper sets up or cleans up; patient completes activity. [place] assists only prior to or following the activity. 4-Supervision or Touching Assistance-helper provides verbal cues and/or touching/steadying and/or contact guard assistance as patient completes activity. Assistance may be provided throughout the activity or intermittently. 3-Partial/Moderate Assistance-helper does LESS THAN HALF the effort. [place] lifts, holds or supports trunk or limbs, but provides less than half the effort. 2-Substantial/Maximal Assistance-helper does MORE THAN HALF the effort. [place] lifts or holds trunk or limbs and provides more than half the effort. 9-Dykxvgxmg-lrpobw does ALL the effort. Patient does none of the effort to complete the activity. Or, the assistance of 2 or more helpers is required for the patient to complete the activity. If activity was not attempted, code reason: 7-Patient Refused. 9-Not Applicable-not attempted and the patient did not perform the activity before the current illness, exacerbation or injury. 10-Not Attempted due to Environmental Limitations-(lack of equipment, weather restraints, etc.). 88-Not Attempted due to Medical Conditions or Safety Concerns. Sit to Stand (QC): 5 Weight Bearing Right Lower Extremity: Right Weight Bearing/Tolerated Left Lower Extremity: Left Weight Bearing/Tolerated Gait Training Does the Patient Walk?: Yes Distance: 150' Walk 10 feet (QC): 5 Walk 50 ft with 2 Turns(QC): 5 Walk 150 ft (QC): 5 Gait Assistive Device: FWW Ambulates SBA; slow pace, normal reciprocal pattern Exercises Seated Therapy Exercises: Long arc quads, Hip flexion Seated Reps: 15 Assessment Patient seated in chair and able to complete seated exercises reps without difficulty, demonstrating good strength. Patient stands from chair without assistance and ambulates 150' with FWW without difficulty at a slow pace. Patient returned to room and seated in chair with legs in dependent position. Patient reported no change in pain but some fatigue upon conclusion. PT Table Games Manager Goals Retirement Goals PT Retirement Goals Time Frame: Feb 11, 2019 Roll Left & Right (QC): 6 Sit to Lying (QC): 6 Lying-Sitting on Side/Bed(QC): 6 Sit to Stand (QC): 6 Chair/Lic-by-Ajwza Xfer(QC): 6 Toilet Transfer (QC): 6 Car Transfer (QC): 6 Does the Patient Walk: Yes Walk 10 feet (QC): 5 Walk 50ft with 2 Turns (QC): 5 Walk 150 ft (QC): 5 Walking 10ft on Uneven Surface: 5 1 Step (curb) (QC): 5 4 Steps (QC): 5 12 Steps (QC): 5 Picking up an Object (QC): 5 Does the Pt use WC or Scooter?: No Type: N/A Type: N/A PT Plan Treatment/Plan Treatment Plan: Continue Plan of Care Treatment Duration: Feb 11, 2019 Frequency: 6 times per week Estimated Hrs Per Day: .25 hour per day Time/GCodes Time In: 1100 Time Out: 1113 Total Billed Treatment Time: 13 Total Billed Treatment 1 visit FA 13min MICHELLE ROLLINS PT Feb 06, 2019 11:23 POS
--- NOTE | 2019-02-06 12:43 | Occupational Therapy Eval ---
OT Evaluation-General/PLF Medical Diagnosis Admission Date Feb 02, 2019 at 15:00 Medical Diagnosis: colon perforation, UTI Onset Date: Feb 02, 2019 Therapy Diagnosis Therapy Diagnosis: Decreased functional mobility and ADL funciton Height/Weight Height (Feet): 5 Height (Inches): 2.00 Weight (Pounds): 180 Weight (Ounces): 0.0 Precautions Precautions/Isolations: Fall Prevention, Standard Precautions Safety Interventions: None Weight Bear Status Weight Bearing Restriction: Weight Bearing/Tolerated Referral Physician: Melisa Referral Reason: Activity Tolerance, Self Care, Evaluation/Treatment, Strengthening/ROM Medical History Pertinent Medical History: Atrial Fib, Arthritis, COPD, Diverticulitis, HTN Additional Medical History see above Current History Per H&P: "The patient is an 83-year-old female who presented to the Emergency Department with abdominal pain. She states that the pain occurred last night and then persisted. She does have a history of a right-sided colon cancer and underwent a laparoscopic right hemicolectomy in 2017. She underwent her second followup colonoscopy just a few days ago and only diverticulosis was identified of the sigmoid and descending colon. The anastomosis was normal and there were no recurrent lesions. A CT scan was performed, which did show a small amount of free air, most likely secondary to a perforated diverticulum. She although did not show any systemic symptoms, does have some abdominal pain in the mid portion of the abdomen; however, no peritoneal signs. She does not report any fever, no chills." Reviewed History: Yes Social History Home: Single Level Current Living Status: Alone Entry Into Home: Stairs With Railing Steps Into Home: 2 Steps Inside Home: 0 Pt's son checks on pt, plans to live with pt (there at night/ days) upon d/c until IND. ADL-Prior Level of Function SCALE: Activities may be completed with or without assistive devices. 8-Gzuotcnlov-doiitou completes the activity by him/herself with no assistance from a helper. 5-Set-up or Clean-up Assistance-helper sets up or cleans up; patient completes activity. [place] assists only prior to or following the activity. 4-Supervision or Touching Assistance-helper provides verbal cues and/or touching/steadying and/or contact guard assistance as patient completes activity. Assistance may be provided throughout the activity or intermittently. 3-Partial/Moderate Assistance-helper does LESS THAN HALF the effort. [place] lifts, holds or supports trunk or limbs, but provides less than half the effort. 2-Substantial/Maximal Assistance-helper does MORE THAN HALF the effort. [place] lifts or holds trunk or limbs and provides more than half the effort. 8-Djjihitgg-bvrgoe does ALL the effort. Patient does none of the effort to complete the activity. Or, the assistance of 2 or more helpers is required for the patient to complete the activity. If activity was not attempted, code reason: 7-Patient Refused. 9-Not Applicable-not attempted and the patient did not perform the activity before the current illness, exacerbation or injury. 10-Not Attempted due to Environmental Limitations-(lack of equipment, weather restraints, etc.). 88-Not Attempted due to Medical Conditions or Safety Concerns. 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 Pt agreeable to OT evaluation. Mental Status/Objective Patient Orientation: Person, Place, Situation, Normal For Age Attachments: IV Current Glasses/Contacts: Yes Hearing Aids: No Dentures/Partials: No Hand Dominance: Right Upper Extremity ROM Impaired BUE- states torn RTC Upper Extremity Coordination WFL BUE Upper Extremity Sensation L 3rd finger: numb during driving tasks. Upper Extremity Strength Impaired BUE (3-/5) ADL-Treatment Eating (QC): 6 (per pt) Oral Hygiene (QC): 7 Shower/Bathe Self (QC): 7 Upper Body Dressing (QC): 7 Lower Body Dressing (QC): 4 (CGA in stance per clinical judgement ) On/Off Footwear (QC): 4 (SBA edge of chair.) Toileting Hygiene (QC): 7 Toilet Transfer (QC): 7 Other Treatments Pt completes evaluation in chair. Pt sit to stand with SBA from recliner with FWW. Pt states difficulty getting on/off toilet. Pt requires intermittent assist for R sock doff/ donning. Pt given theraband and educated on completing back flies and triceps while seated in chair, demonstrates back with cues. Pt left in chair with call light in reach, all needs met. Education OT Patient Education: Correct positioning, Exercise program, Home exercise program, Modified ADL techniques, Purpose of tx/functional activities Teaching Recipient: Patient Teaching Methods: Demonstration Response to Teaching: Verbalize Understanding, Return Demonstration OT Drum Maker Goals Drum Maker Goals Time Frame: Feb 13, 2019 Eating (QC): 6 Oral Hygiene (QC): 6 Toileting Hygiene (QC): 6 Shower/Bathe Self (QC): 6 Upper Body Dressing (QC): 6 Lower Body Dressing (QC): 6 On/Off Footwear (QC): 6 Additional Goals: 1-Demonstrate ADL Tasks, 2-Verbalize Understanding, 3- ImproveStrength/Shari 1=Demonstrate adherence to instructed precautions during ADL tasks. 2=Patient will verbalize/demonstrate understanding of assistive devices/modifications for ADL. 3=Patient will improve strength/tolerance for activity to enable patient to perform ADL's. OT Education/Plan Problem List/Assessment Assessment: Decreased Activ Tolerance, Decreased UE Strength, Dependent Transfers, Impaired Funct Balance, Impaired I ADL's, Impaired Self-Care Skills Discharge Recommendations Plan/Recommendations: Continue POC Equpiment Recommendations-D/C: Rails on Toilet Treatment Plan/Plan of Care Treatment,Training & Education: Yes Patient would benefit from OT for education, treatment and training to promote independence in ADL's, mobility, safety and/or upper extremity function for ADL's. Plan of Care: ADL Retraining, Caregiver Training, Concurrent Therapy, Functional Mobility, Group Exercise/Act as Ind, UE Funct Exercise/Act Treatment Duration: Feb 13, 2019 Frequency: 5 times per week Estimated Hrs Per Day: .25 hour per day Agreement: Yes Rehab Potential: Good Time/GCodes Start Time: 11:52 Stop Time: 12:09 Total Time Billed (hr/min): 17 Billed Treatment Time 1SUMAN (17) ROBBIE SESAY OTR Feb 06, 2019 12:42 POS
[2019-02-06] MEDS: LEVOFLOXACIN 750 MG/D5W 150 ML PRE-MIX IV SCH (14:26)
--- NOTE | 2019-02-06 15:06 | Progress Note - Hospitalist ---
Subjective HPI/CC On Admission Date Seen by Provider: Feb 06, 2019 Time Seen by Provider: 15:02 Lisette Miramontes is an 83yoF with PMH HTN, paroxysmal AFib, asthma, colon cancer s/p right hemicolectomy 2016, who presented one day after a colonoscopy with abdominal pain and was admitted with colon perforation. She reports that after the procedure she had abdominal pain which radiated to her back and her shoulder. She had nausea but no vomiting. She denies fevers and chills. She denies chest pain and dyspnea. Hospital medicine has been consulted for medical management. Subjective/Events-last exam Pt reports feeling well today. Has poor appetite but did tolerate lunch. Had a BM. No other complaints. Objective Exam Vital Signs Vital Signs Date Time Temp Pulse Resp B/P (MAP) Pulse Ox O2 Delivery O2 Flow Rate FiO2 02/06/19 08:00 Room Air 02/06/19 08:00 36.8 79 18 168/78 (108) 95 Capillary Refill : Less Than 3 SecondsLess Than 3 Seconds General Appearance: No Apparent Distress, WD/WN, Obese Respiratory: Lungs Clear, No Respiratory Distress Cardiovascular: Regular Rate, Rhythm, No Murmur Gastrointestinal: Normal Bowel Sounds, Non Tender, Soft Neurologic/Psychiatric: Alert, Oriented x3 Results/Procedures Lab Laboratory Tests 02/06/19 05:05 Patient resulted labs reviewed. Imaging: Reviewed Imaging Report Assessment/Plan Assessment and Plan Assess & Plan/Chief Complaint Colon perforation History of colon cancer History of hemicolectomy -Surgery primary, managing conservatively -Continue Dysphagia diet -Levaquin and Flagyl UTI -UA consistent with UTI -Urine culture appears to be contaminated -Receiving Levaquin HTN pAF -Resume home metoprolol -Holding Eliquis for possible surgery, resume when ok with surgery Asthma -Montelukast DVT Prophylaxis: Eliquis when ok with surgery Clinical Quality Measures DVT/VTE Risk/Contraindication: Risk Factor Score Per Nursin RFS Level Per Nursing on Admit: 3=High PONCHO CHRISTOPHER MD Feb 06, 2019 15:06 POS
[2019-02-06] MEDS: RT-ALBUTEROL SULF 2.5 MG/3 ML PRE-MIX VIAL INH PRN (16:05)
[2019-02-06 16:07] VITALS: BP 168/78
[2019-02-06 16:30] VITALS: BP 166/74
--- NOTE | 2019-02-06 16:31 | Progress Note ---
Subjective Date Seen by a Provider: Feb 06, 2019 Time Seen by a Provider: 14:40 Subjective/Events-last exam Patient seen with Dr. Gaston. Patient reports doing well. Minimal abdominal discomfort today. Did have an episode of N/V last night but none since. No hematemesis. Tolerating diet. No F/C. CT showed decreasing free air in abdomen. Objective Exam Vital Signs Date Time Temp Pulse Resp B/P (MAP) Pulse Ox O2 Delivery O2 Flow Rate FiO2 02/06/19 16:07 36.8 73 96 21 02/06/19 16:00 96 Room Air 02/06/19 08:00 Room Air 02/06/19 08:00 36.8 79 18 168/78 (108) 95 Room Air 02/06/19 04:00 36.5 83 20 132/77 (95) 97 Room Air 02/06/19 01:42 Room Air 02/06/19 00:00 36.7 87 22 162/81 (108) 98 Room Air 02/05/19 20:45 36.8 123 22 124/92 (103) 94 Room Air 02/05/19 20:30 94 Room Air 02/05/19 16:54 36.7 75 22 168/72 (104) 99 Room Air l I & O 02/06/19 07:00 Intake Total 1280 ml Output Total 400 ml Balance 880 ml Capillary Refill : Less Than 3 SecondsLess Than 3 Seconds General Appearance: No Apparent Distress, WD/WN Neck: Full Range of Motion, Normal Inspection, Supple Respiratory: Normal Breath Sounds, No Accessory Muscle Use, No Respiratory Distress Cardiovascular: Regular Rate, Rhythm, No Murmur Gastrointestinal: normal bowel sounds, soft, tenderness (With deep palpation) Extremity: Normal Capillary Refill, Normal Inspection, Normal Range of Motion Neurologic/Psychiatric: Alert, Oriented x3 Skin: Normal Color, Warm/Dry Results Lab Laboratory Tests 02/06/19 05:05: White Blood Count 8.2, Red Blood Count 3.42L, Hemoglobin 10.5L, Hematocrit 32L, Mean Corpuscular Volume 94, Mean Corpuscular Hemoglobin 31, Mean Corpuscular Hemoglobin Concent 33, Red Cell Distribution Width 14.9H, Platelet Count 198, Mean Platelet Volume 9.4, Neutrophils (%) (Auto) 76H, Lymphocytes (%) (Auto) 10L , Monocytes (%) (Auto) 10, Eosinophils (%) (Auto) 4, Basophils (%) (Auto) 0, Neutrophils # (Auto) 6.2, Lymphocytes # (Auto) 0.9L, Monocytes # (Auto) 0.8, Eosinophils # (Auto) 0.3, Basophils # (Auto) 0.0, Sodium Level 137, Potassium Level 3.3L, Chloride Level 107, Carbon Dioxide Level 22, Anion Gap 8, Blood Urea Nitrogen 11, Creatinine 0.77, Estimat Glomerular Filtration Rate > 60, BUN/Creatinine Ratio 14, Glucose Level 111H, Calcium Level 7.9L, Corrected Calcium 9.0, Total Bilirubin 0.3, Aspartate Amino Transf (AST/SGOT) 12, Alanine Aminotransferase (ALT/SGPT) 7, Alkaline Phosphatase 52, Total Protein 4.9L, Albumin 2.6L Microbiology 02/02/19 Blood Culture - Preliminary, Resulted No growth 02/02/19 Urine Culture - Final, Complete 3 or more isolates Assessment/Plan Assessment/Plan Assess & Plan/Chief Complaint An 83 year old female with a perforated diverticula who is S/P recent colonoscopy. VSS. WBC WNL Will DC patient home with po pain and nausea medications. Will have her continue with PO abx. Follow up in the office in 1 week. Clinical Quality Measures DVT/VTE Risk/Contraindication: Risk Factor Score Per Nursin RFS Level Per Nursing on Admit: 3=High NUBIA AREVALO APRN Feb 06, 2019 16:31 POS
[2019-02-06] MEDS ORDERED: METR500T PO (16:39)
[2019-02-06] MEDS ORDERED: LEVO500T2 PO (16:39)
[2019-02-06] MEDS ORDERED: HYDR-3816 PO (16:39)
[2019-02-06] MEDS ORDERED: ONDN4T PO (16:39)
--- NOTE | 2019-02-06 16:43 | Discharge Inst-Surgical ---
D/C Lap Instructions-KIDO Reconcile Patient Problems Problems Reviewed?: Yes New, Converted, or Re-Newed RX: RX on Chart Follow Up Appt in 1 week Activity as tolerated No driving while on pain medications Incentive Spirometry use every 2 hours while awake Regular Diet/Low Residue Symptoms to Report: Fever over 101 degree F, Nausea/Vomiting Infection Signs and Symptoms to report: Increased redness, Foul odor of wound, Increased drainage Bathing instructions: May shower If any problems/questions: Contact your physician or go to Emergency Room NUBIA AREVALO APRN Feb 06, 2019 16:43 POS
[2019-02-06 17:30] VITALS: BP 166/74
[2019-02-06] MEDS ORDERED: RT-ALBUTEROL SULF 2.5 MG/3 ML PRE-MIX VIAL INH SCH (21:00)
--- NOTE | 2019-02-07 13:30 | Physician Query Clarification ---
PQ-Link Manifestation-Etiology Admission/Discharge Admission Date: Feb 02, 2019 at 15:00 Discharge Date: Feb 06, 2019 at 17:30 The medical record reflects the following clinical scenario: History/Risk Factors: Hx diverticulosis, Hx colon CA S/P rt hemicolectomy Clinical Findings: CT scan shows free air favored in region of an anastomosis for rt. hemicolectomy, ate angel and eggs when got home from colonoscopy and pain soon after. Difficulty walking d/t abd pain. Treatment: IV fluids, IV antibiotics, bowel rest Question: Can you specify if the perforated diverticulum is due to/associated with the colonoscopy? Please document a response in the Progress Note or Discharge Summary. 1. Yes - perforated diverticulum is due to/associated with colonoscopy. 2. No - perforated diverticulum is not due to/associated with colonoscopy. 3. Other, with explanation of the clinical findings. 4. Clinically undetermined, no explanation for the clinical findings. PHYSICIAN RESPONSE Manifestation due to/assoic: Yes Explanation of clincal finding 1. Please remember a lack of response to the above will prompt a phone page by CDI/Coding staff. In responding to this query, please exercise your independent professional judgment. The purpose of this communication is to more accurately reflect the complexity of your patients condition. The fact that a question is asked does not imply that any particular answer is desired or expected. Thank you for your timely response to this clarification. Requestors name: Jerod THIS PHYSICIAN QUERY FORM IS A PERMANENT PART OF THE MEDICAL RECORD JEROD MONAE Feb 07, 2019 13:30 STEPHANY RAVI MD Feb 07, 2019 14:29 POS
--- NOTE | 2019-02-15 05:02 | DISCHARGE SUMMARY ---
DATE OF SERVICE: ATTENDING PRIMARY CARE PHYSICIAN: Dr. Max. ADMISSION DIAGNOSIS: Perforated diverticulum, status post colonoscopy. DISCHARGE DIAGNOSIS: Perforated diverticulum, status post colonoscopy. PROCEDURE: None. No complications. OTHER DIAGNOSES: History of right colon cancer, atrial fibrillation, hypertension, chronic obstructive pulmonary disease. DISPOSITION: Home in stable condition. The patient is an 83-year-old female, who presented to the Emergency Department with abdominal pain. She had stated that the pain has started the night before and persisted. She has a history of right-sided colon cancer and underwent a laparoscopic right hemicolectomy in 2017. She underwent her second followup colonoscopy just one day before and was only found to have diverticulosis and no recurrent lesions. The anastomosis was also normal. When she presented to the Emergency Department, a CT scan was performed, which did show a small amount of free air, likely secondary to perforated diverticulum. She did not show any systemic symptoms; however, local abdominal pain. PAST MEDICAL HISTORY: Right colon cancer, atrial fibrillation, hypertension, COPD. PAST SURGERIES: Laparoscopic right hemicolectomy, laparoscopic cholecystectomy, foot surgery. ALLERGIES: PENICILLIN, IODINE, BACTRIM. MEDICATIONS: Apixaban, metoprolol, montelukast. SOCIAL HISTORY: Negative smoke, negative alcohol. FAMILY HISTORY: Noncontributory. The patient was admitted and started on IV fluids as well as IV antibiotics. Her vital signs were stable and we proceeded with conservative therapy with bowel rest as well as IV antibiotics. She did feel well the following day with decreased abdominal pain; however, she did not have any bowel function. We kept her on ice chips at the time. Over time, she did develop normal bowel function and her pain improved dramatically. Her white count which was initially elevated did trend down to normal. Her diet was advanced, which she was able to tolerate as well. Her vital signs remained stable throughout the hospital stay as well. She was discharged home on 02/06/2019. HOME GOING INSTRUCTIONS: Low residue diet for the next 2 weeks. Resume previous home medications, Lortab p.r.n. ACTIVITY RESTRICTIONS: No heavy lifting or exertion for the next two weeks. DISPOSITION: Home in stable condition. Job ID: [id number] DocumentID: [id number] Dictated Date: 02/14/2019 18:07:06 Group Social Worker Date: 02/15/2019 05:02:03 Dictated By: STEPHANY ALY MD
--- OUTSIDE RECORDS SUMMARY | 2019-02-28 23:18 | XMS REPORT | Continuity of Care Document ---
Author Organization Unknown Address Unknown Phone Unavailable Allergies Active Description Code Type Severity Reaction Onset Reported/Identified Relationship to Patient Clinical Status Yes iodine [id number] Drug Allergy Mild N/A 02/02/2019 Yes Penicillins [id number] Drug Aller gy Mild N/A 02/02/2019 Yes Sulfa (Sulfonamide Antibiotics) [id number] Drug Allergy Unknown N/A 019 Yes sulfamethoxazole [id number] Drug Allergy Unknown N/A 02/02/2019 Yes trimethoprim [id number] Drug Allergy Unknown N/A 02/02/2019 Medications There is no data. Problems Date Dx Coded Attending Type Code Diagnosis Diagnosed By 02/26/2014 Ot 241.0 02/26/2014 Ot V76.12 02/26/2014 Ot 735.0 02/26/2014 Ot 735.4 02/26/2014 Ot V72.63 02/26/2014 Ot V72.81 02/26/2014 Ot V74.8 02/26/2014 Ot 786.2 02/26/2014 Ot 722.4 02/26/2014 Ot 433.10 02/26/2014 Ot 241.1 02/26/2014 Ot V76.12 02/26/2014 Ot V76.12 02/26/2014 Ot V76.12 02/26/2014 JENNIFER BRICENO, YORADN Bearden Ot V76.1 2 03/27/2014 YORDAN RODRIGUEZ MD Ot V76.1 2 11/22/2014 FELTON LESLIE MD Ot 465.9 ACUTE URI NOS 11/22/2014 FELTON LESLIE MD Ot 842.00 SPRAIN OF WRIST NOS 11/22/2014 FELTON LESLIE MD Ot 959.3 ELB/FOREARM/WRST INJ NOS 11/22/2014 FELTON LESLIE MD Ot E000.8 OTHER EXTERNAL CAUSE STATUS 11/22/2014 FELTON LESLIE MD Ot E849.0 ACCIDENT IN HOME 11/22/2014 FELTON LESLIE MD Ot E888.9 FALL NOS 12/11/2014 YORDAN RODRIGUEZ MD Ot E87.2 ACIDOSIS 12/11/2014 YORDAN RODRIGUEZ MD Ot F41.9 ANXIETY DISORDER, UNSPECIFIED 12/11/2014 YORDAN RODRIGUEZ MD Ot I10 ESSENTIAL (PRIMARY) HYPERTENSION 12/11/2014 YORDAN RODRIGUEZ MD Ot I48.0 PAROXYSMAL ATRIAL FIBRILLATION 12/11/2014 YORDAN RODRIGUEZ MD Ot J20.8 ACUTE BRONCHITIS DUE TO OTHER SPECIFIED 12/11/2014 YORDAN RODRIGUEZ MD Ot J44.0 CHRONIC OBSTRUCTIVE PULMON DISEASE W ACU 12/11/2014 YORDAN RODRIGUEZ MD, Ot J45.9 09 UNSPECIFIED ASTHMA, UNCOMPLICATED 12/11/2014 YORDAN RODRIGUEZ MD Ot K11.7 DISTURBANCES OF SALIVARY SECRETION 12/11/2014 YORDAN RODRIGUEZ MD Ot L49.3 EXFOLIATN DUE TO ERYTHEMAT COND W 30-39 12/11/2014 YORDAN RODRIGUEZ MD, Ot 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 12/11/2014 YORDAN RODRIGUEZ MD Ot N17.9 ACUTE KIDNEY FAILURE, UNSPECIFIED 12/11/2014 YORDAN RODRIGUEZ MD Ot R32 UNSPECIFIED URINARY INCONTINENCE 12/11/2014 YORDAN RODRIGUEZ MD Ot R94.6 ABNORMAL RESULTS OF THYROID FUNCTION HAYLIE 12/11/2014 YORDAN RODRIGUEZ MD Ot T36.8X5A ADVERSE EFFECT OF OTHER SYSTEMIC ANTIBIO 12/11/2014 YORDAN RODRIGUEZ MD Ot T88.6XXA ANAPHYL REACTION DUE TO ADVRS EFF DRUG/M 12/11/2014 YORDAN RODRIGUEZ MD Ot Z23 ENCOUNTER FOR IMMUNIZATION 12/20/2014 Ot 241.1 12/20/2014 Ot V76.12 12/20/2014 Ot V76.12 12/20/2014 Ot V76.12 12/20/2014 YORDAN RODRIGUEZ MD Ot V76.1 2 12/20/2014 YORDAN RODRIGUEZ MD Ot V76.1 2 01/09/2015 YORDAN RODRIGUEZ MD Ot R30.0 01/09/2015 YORDAN RODRIGUEZ MD Ot R35.0 01/09/2015 YORDAN RODRIGUEZ MD Ot R05 01/17/2015 YORDAN RODRIGUEZ MD, Ot R05 04/05/2015 YORDAN RODRIGUEZ MD Ot Z12.3 1 03/03/2016 Ot V76.12 OTH SCREEN MAMMO- MALIGN NEOPLASM OF NOEMY 03/03/2016 Ot V76.12 OTH SCREEN MAMMO- MALIGN NEOPLASM OF NOEMY 03/03/2016 YORDAN RODRIGUEZ MD Ot V76.1 2 OTH SCREEN MAMMO-MALIGN NEOPLASM OF NOEMY 03/03/2016 YORDAN RODRIGUEZ MD Ot V76.1 2 OTH SCREEN MAMMO-MALIGN NEOPLASM OF NOEMY 03/03/2016 YORDAN RODRIGUEZ MD Ot R30.0 DYSURIA 03/03/2016 YORDAN RODRIGUEZ MD Ot R35.0 FREQUENCY OF MICTURITION 03/03/2016 YORDAN RODRIGUEZ MD Ot R05 COUGH 03/03/2016 YORDAN RODRIGUEZ MD Ot Z12.3 1 ENCNTR SCREEN MAMMOGRAM FOR MALIGNANT NE 03/03/2016 YORDAN RODRIGUEZ MD Ot Z12.3 1 ENCNTR SCREEN MAMMOGRAM FOR MALIGNANT NE 03/03/2016 YORDAN RODRIGUEZ MD Ot Z12.3 1 ENCNTR SCREEN MAMMOGRAM FOR MALIGNANT NE 03/03/2016 Ot V76.12 OTH SCREEN MAMMO- MALIGN NEOPLASM OF NOEMY 03/03/2016 Ot V76.12 OTH SCREEN MAMMO- MALIGN NEOPLASM OF NOEMY 03/03/2016 YORDAN RODRIGUEZ MD Ot V76.1 2 OTH SCREEN MAMMO-MALIGN NEOPLASM OF NOEMY 03/03/2016 YORDAN RODRIGUEZ MD Ot V76.1 2 OTH SCREEN MAMMO-MALIGN NEOPLASM OF NOEMY 03/03/2016 YORDAN RODRIGUEZ MD Ot R30.0 DYSURIA 03/03/2016 YORDAN RODRIGUEZ MD Ot R35.0 FREQUENCY OF MICTURITION 03/03/2016 YORDAN RODRIGUEZ MD Ot R05 COUGH 03/03/2016 YORDAN RODRIGUEZ MD Ot Z12.3 1 ENCNTR SCREEN MAMMOGRAM FOR MALIGNANT NE 03/03/2016 YORDAN RODRIGUEZ MD Ot Z12.3 1 ENCNTR SCREEN MAMMOGRAM FOR MALIGNANT NE 03/03/2016 YORDAN RODRIGUEZ MD Ot Z12.3 1 ENCNTR SCREEN MAMMOGRAM FOR MALIGNANT NE 03/04/2016 YORDAN RODRIGUEZ MD Ot Z12.3 1 ENCNTR SCREEN MAMMOGRAM FOR MALIGNANT NE 03/04/2016 YORDAN RODRIGUEZ MD Ot Z12.3 1 ENCNTR SCREEN MAMMOGRAM FOR MALIGNANT NE 03/27/2016 YORDAN RODRIGUEZ MD Ot Z12.3 1 ENCNTR SCREEN MAMMOGRAM FOR MALIGNANT NE 04/10/2016 JENNIFER BRICENO, YORDAN Bearden Ot E04.2 NONTOXIC MULTINODULAR GOITER 04/13/2016 YORDAN RODRIGUEZ MD Ot E04.2 NONTOXIC MULTINODULAR GOITER 05/04/2016 YORDAN RODRIGUEZ MD Ot E04.2 NONTOXIC MULTINODULAR GOITER 05/13/2016 YORDAN RODRIGUEZ MD Ot E04.2 NONTOXIC MULTINODULAR GOITER 06/25/2016 Ot V76.12 OTH SCREEN MAMMO- MALIGN NEOPLASM OF NOEMY 06/25/2016 Ot V76.12 OTH SCREEN MAMMO- MALIGN NEOPLASM OF NOEMY 06/25/2016 YORDAN RODRIGUEZ MD Ot V76.1 2 OTH SCREEN MAMMO-MALIGN NEOPLASM OF NOEMY 06/25/2016 YORDAN RODRIGUEZ MD Ot V76.1 2 OTH SCREEN MAMMO-MALIGN NEOPLASM OF NOEMY 06/25/2016 YORDAN RODRIGUEZ MD Ot R30.0 DYSURIA 06/25/2016 YORDAN RODRIGUEZ MD Ot R35.0 FREQUENCY OF MICTURITION 06/25/2016 YORDAN RODRIGUEZ MD Ot R05 COUGH 06/25/2016 YORDAN RODRIGUEZ MD Ot Z12.3 1 ENCNTR SCREEN MAMMOGRAM FOR MALIGNANT NE 06/25/2016 YORDAN RODRIGUEZ MD Ot Z12.3 1 ENCNTR SCREEN MAMMOGRAM FOR MALIGNANT NE 06/25/2016 YORDAN RODRIGUEZ MD Ot E04.2 NONTOXIC MULTINODULAR GOITER 06/26/2016 ANNELIESE CARMICHAEL APRN Ot 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 W/O MYELOPATHY OR RADICULOPA 06/26/2016 ANNELIESE CARMICHAEL APRN Ot S09.90XA UNSPECIFIED INJURY OF HEAD, INITIAL ENCO 06/26/2016 ANNELIESE CARMICHAEL APRN Ot W19.XXXA UNSPECIFIED FALL, INITIAL ENCOUNTER 06/26/2016 ANNELIESE CARMICHAEL APRN Ot Y92.[address] [facility] 06/26/2016 ANNELIESE CARMICHAEL APRN Ot Y99.8 OTHER EXTERNAL CAUSE STATUS 06/26/2016 ANNELIESE CARMICHAEL APRN Ot 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 W/O MYELOPATHY OR RADICULOPA 06/26/2016 ANNELIESE CARMICHAEL APRN Ot S09.90XA UNSPECIFIED INJURY OF HEAD, INITIAL ENCO 06/26/2016 ANNELIESE CARMICHAEL DOG LICENSE OFFICER SUPERVISOR Ot W19.XXXA UNSPECIFIED FALL, INITIAL ENCOUNTER 06/26/2016 ANNELIESE CARMICHAEL DOG LICENSE OFFICER SUPERVISOR Ot Y92.[address] IN [facility] [place] NON-INSTITUT (PRIVATE 06/26/2016 ANNELIESE CARMICHAEL DOG LICENSE OFFICER SUPERVISOR Ot Y99.8 OTHER EXTERNAL CAUSE STATUS 07/20/2016 OTMÁS CARMICHAELN Nuno DOG LICENSE OFFICER SUPERVISOR Ot 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 W/O MYELOPATHY OR RADICULOPA 07/20/2016 TOMÁS CARMICHAELN R DOG LICENSE OFFICER SUPERVISOR Ot S09.90XA UNSPECIFIED INJURY OF HEAD, INITIAL ENCO 07/20/2016 TOMÁS CARMICHAELN R DOG LICENSE OFFICER SUPERVISOR Ot W19.XXXA UNSPECIFIED FALL, INITIAL ENCOUNTER 07/20/2016 TOMÁS CARMICHAELN Nuno DOG LICENSE OFFICER SUPERVISOR Ot Y92.[address] IN [facility] [place] NON-INSTITUT (PRIVATE 07/20/2016 ANNELIESE CARMICHAEL DOG LICENSE OFFICER SUPERVISOR Ot Y99.8 OTHER EXTERNAL CAUSE STATUS 07/23/2016 TOMÁS CARMICHAELChanel Reina DOG LICENSE OFFICER SUPERVISOR Ot 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 W/O MYELOPATHY OR RADICULOPA 07/23/2016 TOMÁS CARMICHAELN R DOG LICENSE OFFICER SUPERVISOR Ot S09.90XA UNSPECIFIED INJURY OF HEAD, INITIAL ENCO 07/23/2016 TOMÁS CARMICHAELN R DOG LICENSE OFFICER SUPERVISOR Ot W19.XXXA UNSPECIFIED FALL, INITIAL ENCOUNTER 07/23/2016 TOMÁS CARMICHAELChanel Reina DOG LICENSE OFFICER SUPERVISOR Ot Y92.[address] IN [facility] [place] NON-INSTITUT (PRIVATE 07/23/2016 TOMÁS CARMICHAELChanel Reina DOG LICENSE OFFICER SUPERVISOR Ot Y99.8 OTHER EXTERNAL CAUSE STATUS 10/21/2016 LIDA BRICENO FAC, [facility] CCDS Ot R06.02 SHORTNESS OF BREATH 10/26/2016 SHERYL RAMOS MD Ot D64.9 ANEMIA, UNSPECIFIED 10/26/2016 SHERYL RAMOS MD Ot E66.09 OTHER OBESITY DUE TO EXCESS CALORIES 10/26/2016 SHERYL RAMOS MD Ot I10 ESSENTIAL (PRIMARY) HYPERTENSION 10/26/2016 SHERYL RAMOS MD Ot I48.0 PAROXYSMAL ATRIAL FIBRILLATION 10/26/2016 SHERYL RAMOS MD Ot K57.90 DVRTCLOS OF INTEST, PART UNSP, W/O PERF 10/26/2016 SHERYL RAMOS MD Ot R06.02 SHORTNESS OF BREATH 10/26/2016 SHERYL RAMOS MD Ot R53.83 OTHER FATIGUE 10/26/2016 SHERYL RAMOS MD Ot Z68.31 BODY MASS INDEX (BMI) 31.0-31.9, ADULT 11/06/2016 SUAD CASE MD Ot 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 9 ANEMIA, UNSPECIFIED 11/06/2016 SUAD CASE MD Ot I10 ESSENTIAL (PRIMARY) HYPERTENSION 11/06/2016 SUAD CASE MD Ot I48. 0 PAROXYSMAL ATRIAL FIBRILLATION 11/06/2016 SUAD CASE MD Ot J30. 2 OTHER SEASONAL ALLERGIC RHINITIS 11/06/2016 SUAD CASE MD Ot K57. 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 9 ANEMIA, UNSPECIFIED 11/17/2016 SUAD CASE MD Ot I10 ESSENTIAL (PRIMARY) HYPERTENSION 11/17/2016 SUAD CASE MD Ot I48. 0 PAROXYSMAL ATRIAL FIBRILLATION 11/17/2016 SUAD CASE MD Ot J30. 2 OTHER SEASONAL ALLERGIC RHINITIS 11/17/2016 SUAD CASE MD Ot K57. 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 9 ANEMIA, UNSPECIFIED 11/18/2016 SUAD CASE MD Ot I10 ESSENTIAL (PRIMARY) HYPERTENSION 11/18/2016 SUAD CASE MD Ot I48. 0 PAROXYSMAL ATRIAL FIBRILLATION 11/18/2016 SUAD CASE MD Ot J30. 2 OTHER SEASONAL ALLERGIC RHINITIS 11/18/2016 SUAD CASE MD Ot K57. 30 DVRTCLOS OF LG INT W/O PERFORATION OR AB 11/18/2016 SUAD CASE MD Ot Z79.899 OTHER [facility] (CURRENT) DRUG THERAPY 11/18/2016 STEPHANY ALY MD Ot C18.9 MALIGNANT NEOPLASM OF COLON, UNSPECIFIED 11/18/2016 STEPHANY ALY MD Ot Z01.81 8 ENCOUNTER FOR OTHER PREPROCEDURAL EXAMIN 11/18/2016 LIDA BRICENO FACC, ALI FACP CCDS Ot E66.09 OTHER OBESITY DUE TO EXCESS CALORIES 11/18/2016 LIDA BRICENO FACC, ALI FACP CCDS Ot I48.0 PAROXYSMAL ATRIAL FIBRILLATION 11/18/2016 LIDA BRICENO FACC, ALI FACP CCDS Ot R06.02 SHORTNESS OF BREATH 11/18/2016 LIDA BRICENO FACC, ALI FACP CCDS Ot R53.83 OTHER FATIGUE 11/26/2016 STEPHANY ALY MD Ot 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 11/26/2016 STEPHANY ALY MD Ot D64.9 ANEMIA, UNSPECIFIED 11/26/2016 STEPHANY ALY MD Ot E46 UNSPECIFIED PROTEIN-CALORIE MALNUTRITION 11/26/2016 STEPHANY ALY MD Ot E66.9 OBESITY, UNSPECIFIED 11/26/2016 STEPHANY ALY MD Ot E86.0 DEHYDRATION 11/26/2016 STEPHANY ALY MD Ot E87.2 ACIDOSIS 11/26/2016 STEPHANY ALY MD Ot G62.9 POLYNEUROPATHY, UNSPECIFIED 11/26/2016 STEPHANY ALY MD Ot I10 ESSENTIAL (PRIMARY) HYPERTENSION 11/26/2016 STEPHANY ALY MD Ot I48.0 PAROXYSMAL ATRIAL FIBRILLATION 11/26/2016 STEPHANY ALY MD Ot I89.0 LYMPHEDEMA, NOT ELSEWHERE CLASSIFIED 11/26/2016 STEPHANY ALY MD, Ot J30.2 OTHER SEASONAL ALLERGIC RHINITIS 11/26/2016 STEPHANY ALY MD, Ot J44.9 CHRONIC OBSTRUCTIVE PULMONARY DISEASE, U 11/26/2016 STEPHANY ALY MD, Ot J98.11 ATELECTASIS 11/26/2016 STEPHANY ALY MD, Ot K56.7 ILEUS, UNSPECIFIED 11/26/2016 STEPHANY ALY MD, Ot K57.90 DVRTCLOS OF INTEST, PART UNSP, W/O PERF 11/26/2016 STEPHANY ALY MD, Ot K65.9 PERITONITIS, UNSPECIFIED 11/26/2016 STEPHANY ALY MD, Ot M19.91 PRIMARY OSTEOARTHRITIS, UNSPECIFIED SITE 11/26/2016 STEPHANY ALY MD, Ot N28.9 DISORDER OF KIDNEY AND URETER, UNSPECIFI 11/26/2016 STEPHANY ALY MD, Ot N39.0 URINARY TRACT INFECTION, SITE NOT SPECIF 11/26/2016 STEPHANY ALY MD, Ot Z68.37 BODY MASS INDEX (BMI) 37.0-37.9, ADULT 11/27/2016 STEPHANY ALY MD Ot 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 11/27/2016 STEPHANY ALY MD, Ot D64.9 ANEMIA, UNSPECIFIED 11/27/2016 STEPHANY ALY MD Ot E46 UNSPECIFIED PROTEIN-CALORIE MALNUTRITION 11/27/2016 STEPHANY ALY MD Ot E66.9 OBESITY, UNSPECIFIED 11/27/2016 STEPHANY ALY MD Ot E86.0 DEHYDRATION 11/27/2016 STEPHANY ALY MD Ot E87.2 ACIDOSIS 11/27/2016 STEPHANY ALY MD, Ot G62.9 POLYNEUROPATHY, UNSPECIFIED 11/27/2016 STEPHANY ALY MD Ot I10 ESSENTIAL (PRIMARY) HYPERTENSION 11/27/2016 STEPHANY ALY MD, Ot I48.0 PAROXYSMAL ATRIAL FIBRILLATION 11/27/2016 STEPHANY ALY MD Ot I89.0 LYMPHEDEMA, NOT ELSEWHERE CLASSIFIED 11/27/2016 STEPHANY ALY MD, Ot J30.2 OTHER SEASONAL ALLERGIC RHINITIS 11/27/2016 STEPHANY ALY MD, Ot J44.9 CHRONIC OBSTRUCTIVE PULMONARY DISEASE, U 11/27/2016 STEPHANY ALY MD, Ot J98.11 ATELECTASIS 11/27/2016 STEPHANY LAY MD, Ot K56.7 ILEUS, UNSPECIFIED 11/27/2016 STEPHANY ALY MD, Ot K57.90 DVRTCLOS OF INTEST, PART UNSP, W/O PERF 11/27/2016 STEPHANY ALY MD, Ot K65.9 PERITONITIS, UNSPECIFIED 11/27/2016 STEPHANY ALY MD, Ot M19.91 PRIMARY OSTEOARTHRITIS, UNSPECIFIED SITE 11/27/2016 STEPHANY ALY MD, Ot N28.9 DISORDER OF KIDNEY AND URETER, UNSPECIFI 11/27/2016 STEPHANY ALY MD, Ot N39.0 URINARY TRACT INFECTION, SITE NOT SPECIF 11/27/2016 STEPHANY ALY MD, Ot Z68.37 BODY MASS INDEX (BMI) 37.0-37.9, ADULT 11/28/2016 STEPHANY ALY MD, Ot 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 11/28/2016 STEPHANY ALY MD, Ot D64.9 ANEMIA, UNSPECIFIED 11/28/2016 STEPHANY ALY MD, Ot E46 UNSPECIFIED PROTEIN-CALORIE MALNUTRITION 11/28/2016 STEPHANY ALY MD, Ot E66.9 OBESITY, UNSPECIFIED 11/28/2016 STEPHANY ALY MD Ot E86.0 DEHYDRATION 11/28/2016 STEPHANY ALY MD, Ot E87.2 ACIDOSIS 11/28/2016 STEPHANY ALY MD, Ot G62.9 POLYNEUROPATHY, UNSPECIFIED 11/28/2016 STEPHANY ALY MD Ot I10 ESSENTIAL (PRIMARY) HYPERTENSION 11/28/2016 STEPHANY ALY MD Ot I48.0 PAROXYSMAL ATRIAL FIBRILLATION 11/28/2016 STEPHANY ALY MD, Ot I89.0 LYMPHEDEMA, NOT ELSEWHERE CLASSIFIED 11/28/2016 STEPHANY ALY MD, Ot J30.2 OTHER SEASONAL ALLERGIC RHINITIS 11/28/2016 STEPHANY ALY MD, Ot J44.9 CHRONIC OBSTRUCTIVE PULMONARY DISEASE, U 11/28/2016 STEPHANY ALY MD, Ot J98.11 ATELECTASIS 11/28/2016 STEPHANY ALY MD, Ot K56.7 ILEUS, UNSPECIFIED 11/28/2016 STEPHANY ALY MD Ot K57.90 DVRTCLOS OF INTEST, PART UNSP, W/O PERF 11/28/2016 STEPHANY ALY MD, Ot K65.9 PERITONITIS, UNSPECIFIED 11/28/2016 STEPHANY ALY MD, Ot M19.91 PRIMARY OSTEOARTHRITIS, UNSPECIFIED SITE 11/28/2016 STEPHANY ALY MD Ot N28.9 DISORDER OF KIDNEY AND URETER, UNSPECIFI 11/28/2016 STEPHANY ALY MD, Ot N39.0 URINARY TRACT INFECTION, SITE NOT SPECIF 11/28/2016 STEPHANY ALY MD, Ot Z68.37 BODY MASS INDEX (BMI) 37.0-37.9, ADULT 11/29/2016 STEPHANY ALY MD, Ot 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 11/29/2016 STEPHANY ALY MD, Ot D64.9 ANEMIA, UNSPECIFIED 11/29/2016 STEPHANY ALY MD Ot E46 UNSPECIFIED PROTEIN-CALORIE MALNUTRITION 11/29/2016 STEPHANY ALY MD Ot E66.9 OBESITY, UNSPECIFIED 11/29/2016 STEPHANY ALY MD Ot E86.0 DEHYDRATION 11/29/2016 STEPHANY ALY MD Ot E87.2 ACIDOSIS 11/29/2016 STEPHANY ALY MD, Ot G62.9 POLYNEUROPATHY, UNSPECIFIED 11/29/2016 STEPHANY ALY MD Ot I10 ESSENTIAL (PRIMARY) HYPERTENSION 11/29/2016 STEPHANY ALY MD Ot I48.0 PAROXYSMAL ATRIAL FIBRILLATION 11/29/2016 STEPHANY ALY MD Ot I89.0 LYMPHEDEMA, NOT ELSEWHERE CLASSIFIED 11/29/2016 STEPHANY ALY MD Ot J30.2 OTHER SEASONAL ALLERGIC RHINITIS 11/29/2016 STEPHANY ALY MD Ot J44.9 CHRONIC OBSTRUCTIVE PULMONARY DISEASE, U 11/29/2016 STEPHANY ALY MD, Ot J98.11 ATELECTASIS 11/29/2016 STEPHANY ALY MD Ot K56.7 ILEUS, UNSPECIFIED 11/29/2016 STEPHANY ALY MD Ot K57.90 DVRTCLOS OF INTEST, PART UNSP, W/O PERF 11/29/2016 STEPHANY ALY MD, Ot K65.9 PERITONITIS, UNSPECIFIED 11/29/2016 STEPHANY ALY MD, Ot M19.91 PRIMARY OSTEOARTHRITIS, UNSPECIFIED SITE 11/29/2016 STEPHANY ALY MD, Ot N28.9 DISORDER OF KIDNEY AND URETER, UNSPECIFI 11/29/2016 STEPHANY ALY MD, Ot N39.0 URINARY TRACT INFECTION, SITE NOT SPECIF 11/29/2016 STEPHANY ALY MD, Ot Z68.37 BODY MASS INDEX (BMI) 37.0-37.9, ADULT 11/30/2016 STEPHANY ALY MD Ot 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 11/30/2016 STEPHANY ALY MD, Ot D64.9 ANEMIA, UNSPECIFIED 11/30/2016 STEPHANY ALY MD, Ot E46 UNSPECIFIED PROTEIN-CALORIE MALNUTRITION 11/30/2016 STEPHANY ALY MD, Ot E66.9 OBESITY, UNSPECIFIED 11/30/2016 STEPHANY ALY MD Ot E86.0 DEHYDRATION 11/30/2016 STEPHANY ALY MD, Ot E87.2 ACIDOSIS 11/30/2016 STEPHANY ALY MD, Ot G62.9 POLYNEUROPATHY, UNSPECIFIED 11/30/2016 STEPHANY ALY MD Ot I10 ESSENTIAL (PRIMARY) HYPERTENSION 11/30/2016 STEPHANY ALY MD, Ot I48.0 PAROXYSMAL ATRIAL FIBRILLATION 11/30/2016 STEPHANY ALY MD Ot I89.0 LYMPHEDEMA, NOT ELSEWHERE CLASSIFIED 11/30/2016 STEPHANY ALY MD, Ot J30.2 OTHER SEASONAL ALLERGIC RHINITIS 11/30/2016 STEPHANY ALY MD, Ot J44.9 CHRONIC OBSTRUCTIVE PULMONARY DISEASE, U 11/30/2016 STEPHANY ALY MD, Ot J98.11 ATELECTASIS 11/30/2016 STEPHANY ALY MD, Ot K56.7 ILEUS, UNSPECIFIED 11/30/2016 STEPHANY ALY MD, Ot K57.90 DVRTCLOS OF INTEST, PART UNSP, W/O PERF 11/30/2016 STEPHANY ALY MD, Ot K65.9 PERITONITIS, UNSPECIFIED 11/30/2016 STEPHANY ALY MD, Ot M19.91 PRIMARY OSTEOARTHRITIS, UNSPECIFIED SITE 11/30/2016 KIDO MD, TAKAAKI Ot N28.9 DISORDER OF KIDNEY AND URETER, UNSPECIFI 11/30/2016 STEPHANY ALY MD, Ot N39.0 URINARY TRACT INFECTION, SITE NOT SPECIF 11/30/2016 STEPHANY ALY MD, Ot Z68.37 BODY MASS INDEX (BMI) 37.0-37.9, ADULT 12/01/2016 STEPHANY ALY MD Ot 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 12/01/2016 STEPHANY ALY MD, Ot D64.9 ANEMIA, UNSPECIFIED 12/01/2016 STEPHANY ALY MD, Ot E46 UNSPECIFIED PROTEIN-CALORIE MALNUTRITION 12/01/2016 STEPHANY ALY MD, Ot E66.9 OBESITY, UNSPECIFIED 12/01/2016 STEPHANY ALY MD, Ot E86.0 DEHYDRATION 12/01/2016 STEPHANY ALY MD, Ot E87.2 ACIDOSIS 12/01/2016 STEPHANY ALY MD, Ot G62.9 POLYNEUROPATHY, UNSPECIFIED 12/01/2016 STEPHANY ALY MD, Ot I10 ESSENTIAL (PRIMARY) HYPERTENSION 12/01/2016 STEPHANY ALY MD Ot I48.0 PAROXYSMAL ATRIAL FIBRILLATION 12/01/2016 STEPHANY ALY MD, Ot I89.0 LYMPHEDEMA, NOT ELSEWHERE CLASSIFIED 12/01/2016 STEPHANY ALY MD, Ot J30.2 OTHER SEASONAL ALLERGIC RHINITIS 12/01/2016 STEPHANY ALY MD, Ot J44.9 CHRONIC OBSTRUCTIVE PULMONARY DISEASE, U 12/01/2016 STEPHANY ALY MD, Ot J98.11 ATELECTASIS 12/01/2016 STEPHANY ALY MD, Ot K56.7 ILEUS, UNSPECIFIED 12/01/2016 STEPHANY ALY MD, Ot K57.90 DVRTCLOS OF INTEST, PART UNSP, W/O PERF 12/01/2016 STEPHANY ALY MD, Ot K65.9 PERITONITIS, UNSPECIFIED 12/01/2016 STEPHANY ALY MD, Ot M19.91 PRIMARY OSTEOARTHRITIS, UNSPECIFIED SITE 12/01/2016 STEPHANY ALY MD, Ot N28.9 DISORDER OF KIDNEY AND URETER, UNSPECIFI 12/01/2016 STEPHANY ALY MD, Ot N39.0 URINARY TRACT INFECTION, SITE NOT SPECIF 12/01/2016 STEPHANY ALY MD, Ot Z68.37 BODY MASS INDEX (BMI) 37.0-37.9, ADULT 12/01/2016 STEPHANY ALY MD, Ot B96.1 KLEBSIELLA PNEUMONIAE THE CAUSE OF DI 12/01/2016 STEPHANY ALY MD, Ot B96.20 UNSP ESCHERICHIA COLI THE CAUSE OF DI 12/01/2016 STEPHANY ALY MD Ot 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 12/01/2016 STEPHANY ALY MD, Ot D64.9 ANEMIA, UNSPECIFIED 12/01/2016 STEPHANY ALY MD, Ot E46 UNSPECIFIED PROTEIN-CALORIE MALNUTRITION 12/01/2016 STEPHANY ALY MD, Ot E66.9 OBESITY, UNSPECIFIED 12/01/2016 STEPHANY ALY MD, Ot E86.0 DEHYDRATION 12/01/2016 STEPHANY ALY MD, Ot E87.2 ACIDOSIS 12/01/2016 STEPHANY ALY MD, Ot E88.09 OTH DISORDERS OF PLASMA-PROTEIN METABOLI 12/01/2016 STEPHANY AYL MD, Ot G62.9 POLYNEUROPATHY, UNSPECIFIED 12/01/2016 STEPHANY ALY MD Ot I10 ESSENTIAL (PRIMARY) HYPERTENSION 12/01/2016 STEPHANY ALY MD, Ot I48.0 PAROXYSMAL ATRIAL FIBRILLATION 12/01/2016 STEPHANY ALY MD, Ot I89.0 LYMPHEDEMA, NOT ELSEWHERE CLASSIFIED 12/01/2016 STEPHANY ALY MD, Ot J30.2 OTHER SEASONAL ALLERGIC RHINITIS 12/01/2016 STEPHANY ALY MD, Ot J44.9 CHRONIC OBSTRUCTIVE PULMONARY DISEASE, U 12/01/2016 STEPHANY ALY MD, Ot J98.11 ATELECTASIS 12/01/2016 STEPHANY ALY MD, Ot K56.7 ILEUS, UNSPECIFIED 12/01/2016 STEPHANY ALY MD, Ot 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 12/01/2016 STEPHANY ALY MD, Ot K65.9 PERITONITIS, UNSPECIFIED 12/01/2016 STEPHANY ALY MD, Ot M19.91 PRIMARY OSTEOARTHRITIS, UNSPECIFIED SITE 12/01/2016 STEPHANY ALY MD, Ot N28.9 DISORDER OF KIDNEY AND URETER, UNSPECIFI 12/01/2016 STEPHANY ALY MD, Ot N39.0 URINARY TRACT INFECTION, SITE NOT SPECIF 12/01/2016 STEPHANY ALY MD Ot R34 ANURIA AND OLIGURIA 12/01/2016 STEPHANY ALY MD Ot R60.1 GENERALIZED EDEMA 12/01/2016 STEPHANY ALY MD, Ot Z68.37 BODY MASS INDEX (BMI) 37.0-37.9, ADULT 12/02/2016 JANICE MANCILLA MD Ot 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 12/02/2016 JANICE MANCILLA MD, Ot D64 .9 ANEMIA, UNSPECIFIED 12/02/2016 JANICE MANCILLA MD Ot E46 UNSPECIFIED PROTEIN-CALORIE MALNUTRITION 12/02/2016 JANICE MANCILLA MD Ot E66 .9 OBESITY, UNSPECIFIED 12/02/2016 JANICE MANCILLA MD, Ot E88.09 OTH DISORDERS OF PLASMA-PROTEIN METABOLI 12/02/2016 JANICE MANCILLA MD Ot I10 ESSENTIAL (PRIMARY) HYPERTENSION 12/02/2016 JANICE MANCILLA MD Ot I48 .0 PAROXYSMAL ATRIAL FIBRILLATION 12/02/2016 JANICE MANCILLA MD Ot J44 .9 CHRONIC OBSTRUCTIVE PULMONARY DISEASE, U 12/02/2016 JANICE MANCILLA MD Ot J98.11 ATELECTASIS 12/02/2016 JANICE MANCILLA MD, Ot K63 .2 FISTULA OF INTESTINE 12/02/2016 JANICE MANCILLA MD Ot M19.91 PRIMARY OSTEOARTHRITIS, UNSPECIFIED SITE 12/02/2016 JANICE MANCILLA MD Ot N39 .0 URINARY TRACT INFECTION, SITE NOT SPECIF 12/02/2016 JANICE MANCILLA MD Ot R53.81 OTHER MALAISE 12/02/2016 JANICE MANCILLA MD Ot Z48 .3 AFTERCARE FOLLOWING SURGERY FOR NEOPLASM 12/02/2016 JANICE MANCILLA MD, Ot Z68.37 BODY MASS INDEX (BMI) 37.0-37.9, ADULT 12/02/2016 JANICE MANCILLA MD, Ot Z93 .3 COLOSTOMY STATUS 12/07/2016 JANICE MANCILLA MD Ot 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 12/07/2016 JANICE MANCILLA MD Ot D64 .9 ANEMIA, UNSPECIFIED 12/07/2016 JANICE MANCILLA MD Ot E46 UNSPECIFIED PROTEIN-CALORIE MALNUTRITION 12/07/2016 ODGERS MD, JANICE K Ot E66 .9 OBESITY, UNSPECIFIED 12/07/2016 JANICE MANCILLA MD Ot E88.09 OTH DISORDERS OF PLASMA-PROTEIN METABOLI 12/07/2016 JANICE MANCILLA MD Ot I10 ESSENTIAL (PRIMARY) HYPERTENSION 12/07/2016 JANICE MANCILLA MD Ot I48 .0 PAROXYSMAL ATRIAL FIBRILLATION 12/07/2016 JANICE MANCILLA MD Ot J44 .9 CHRONIC OBSTRUCTIVE PULMONARY DISEASE, U 12/07/2016 JANICE MANCILLA MD Ot J98.11 ATELECTASIS 12/07/2016 JANICE MANCILLA MD, Ot K63 .2 FISTULA OF INTESTINE 12/07/2016 JANICE MANCILLA MD Ot M19.91 PRIMARY OSTEOARTHRITIS, UNSPECIFIED SITE 12/07/2016 JANICE MANCILLA MD, Ot N39 .0 URINARY TRACT INFECTION, SITE NOT SPECIF 12/07/2016 JANICE MANCILLA MD Ot R53.81 OTHER MALAISE 12/07/2016 JANICE MANCILLA MD, Ot Z48 .3 AFTERCARE FOLLOWING SURGERY FOR NEOPLASM 12/07/2016 JANICE MANCILLA MD Ot Z68.37 BODY MASS INDEX (BMI) 37.0-37.9, ADULT 12/07/2016 JANICE MANCILLA MD Ot Z93 .3 COLOSTOMY STATUS 12/07/2016 JANICE MANCILLA MD Ot 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 12/07/2016 JANICE MANCILLA MD Ot D62 ACUTE POSTHEMORRHAGIC ANEMIA 12/07/2016 JANICE MANCILLA MD Ot D63 .0 ANEMIA IN NEOPLASTIC DISEASE 12/07/2016 JANICE MANCILLA MD Ot D63 .8 ANEMIA IN OTHER CHRONIC DISEASES CLASSIF 12/07/2016 JANICE MANCILLA MD Ot D64 .9 ANEMIA, UNSPECIFIED 12/07/2016 JANICE MANCILLA MD Ot E46 UNSPECIFIED PROTEIN-CALORIE MALNUTRITION 12/07/2016 JANICE MANCILLA MD Ot E66 .9 OBESITY, UNSPECIFIED 12/07/2016 JANICE MANCILLA MD Ot E87 .6 HYPOKALEMIA 12/07/2016 JANICE MANCILLA MD Ot E88.09 OTH DISORDERS OF PLASMA-PROTEIN METABOLI 12/07/2016 JANICE MANCILLA MD Ot I10 ESSENTIAL (PRIMARY) HYPERTENSION 12/07/2016 JANICE MANCILLA MD Ot I48 .0 PAROXYSMAL ATRIAL FIBRILLATION 12/07/2016 JANICE MANCILLA MD, Ot J44 .9 CHRONIC OBSTRUCTIVE PULMONARY DISEASE, U 12/07/2016 JANICE MANCILLA MD Ot J90 PLEURAL EFFUSION, NOT ELSEWHERE CLASSIFI 12/07/2016 JANICE MANCILLA MD Ot J98.11 ATELECTASIS 12/07/2016 JANICE MANCILLA MD Ot K63 .2 FISTULA OF INTESTINE 12/07/2016 JANICE MANCILLA MD Ot M19.91 PRIMARY OSTEOARTHRITIS, UNSPECIFIED SITE 12/07/2016 JANICE MANCILLA MD Ot N39 .0 URINARY TRACT INFECTION, SITE NOT SPECIF 12/07/2016 JANICE MANCILLA MD Ot R09.02 HYPOXEMIA 12/07/2016 JANICE MANCILLA MD Ot R53.81 OTHER MALAISE 12/07/2016 JANICE MANCILLA MD Ot R60 .1 GENERALIZED EDEMA 12/07/2016 JANICE MANCILLA MD Ot Z48 .3 AFTERCARE FOLLOWING SURGERY FOR NEOPLASM 12/07/2016 JANICE MANCILLA MD Ot Z68.37 BODY MASS INDEX (BMI) 37.0-37.9, ADULT 12/07/2016 JANICE MANCILLA MD Ot Z93 .3 COLOSTOMY STATUS 12/07/2016 JANICE MANCILLA MD Ot 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 12/07/2016 JANICE MANCILLA MD Ot D64 .9 ANEMIA, UNSPECIFIED 12/07/2016 JANICE MANCILLA MD Ot E46 UNSPECIFIED PROTEIN-CALORIE MALNUTRITION 12/07/2016 JANICE MANCILLA MD Ot E66 .9 OBESITY, UNSPECIFIED 12/07/2016 JANICE MANCILLA MD Ot E88.09 OTH DISORDERS OF PLASMA-PROTEIN METABOLI 12/07/2016 JANICE MANCILLA MD Ot I10 ESSENTIAL (PRIMARY) HYPERTENSION 12/07/2016 JANICE MANCILLA MD Ot I48 .0 PAROXYSMAL ATRIAL FIBRILLATION 12/07/2016 JANICE MANCILLA MD Ot J44 .9 CHRONIC OBSTRUCTIVE PULMONARY DISEASE, U 12/07/2016 JANICE MANCILLA MD Ot J98.11 ATELECTASIS 12/07/2016 JANICE MANCILLA MD Ot K63 .2 FISTULA OF INTESTINE 12/07/2016 JANICE MANCILLA MD Ot M19.91 PRIMARY OSTEOARTHRITIS, UNSPECIFIED SITE 12/07/2016 JANICE MANCILLA MD Ot N39 .0 URINARY TRACT INFECTION, SITE NOT SPECIF 12/07/2016 JANICE MANCILLA MD Ot R53.81 OTHER MALAISE 12/07/2016 JANICE MANCILLA MD Ot Z48 .3 AFTERCARE FOLLOWING SURGERY FOR NEOPLASM 12/07/2016 JANICE MANCILLA MD Ot Z68.37 BODY MASS INDEX (BMI) 37.0-37.9, ADULT 12/07/2016 JANICE MANCILLA MD Ot Z93 .3 COLOSTOMY STATUS 12/08/2016 LIDA BRICENO FACC, ALI FACP CCDS Ot E66.09 OTHER OBESITY DUE TO EXCESS CALORIES 12/08/2016 LIDA BRICENO FACC, ALI FACP CCDS Ot I48.0 PAROXYSMAL ATRIAL FIBRILLATION 12/08/2016 LIDA BRICENO FACC, ALI FACP CCDS Ot R06.02 SHORTNESS OF BREATH 12/08/2016 LIDA RBICENO FACC, ALI FACP CCDS Ot R53.83 OTHER FATIGUE 12/10/2016 NICHELLE LR DO Ot D47.3 ESSENTIAL (HEMORRHAGIC) THROMBOCYTHEMIA 12/10/2016 NICHELLE LR DO Ot D62 ACUTE POSTHEMORRHAGIC ANEMIA 12/10/2016 NICHELLE LR DO Ot D63.8 ANEMIA IN OTHER CHRONIC DISEASES CLASSIF 12/10/2016 NICHELLE LR DO Ot E46 UNSPECIFIED PROTEIN-CALORIE MALNUTRITION 12/10/2016 NICHELLE LR DO Ot E83.42 HYPOMAGNESEMIA 12/10/2016 NICHELLE LR DO Ot E88.09 OTH DISORDERS OF PLASMA-PROTEIN METABOLI 12/10/2016 NICHELLE LR DO Ot I10 ESSENTIAL (PRIMARY) HYPERTENSION 12/10/2016 NICHELLE LR DO Ot I11.0 HYPERTENSIVE HEART DISEASE WITH HEART FA 12/10/2016 NICHELLE LR DO Ot I48.0 PAROXYSMAL ATRIAL FIBRILLATION 12/10/2016 NICHELLE LR DO Ot I50.31 ACUTE DIASTOLIC (CONGESTIVE) HEART FAILU 12/10/2016 NICHELLE LR DO Ot J18.9 PNEUMONIA, UNSPECIFIED ORGANISM 12/10/2016 NICHELLE LR DO Ot J96.02 ACUTE RESPIRATORY FAILURE WITH HYPERCAPN 12/10/2016 ROMAINE LR DOI Ot J96.91 RESPIRATORY FAILURE, UNSPECIFIED WITH HY 12/10/2016 ROMAINE LR DOI Ot J98.11 ATELECTASIS 12/10/2016 ROMAINE LR DOI Ot K56.7 ILEUS, UNSPECIFIED 12/10/2016 ROMAINE LR DOI Ot 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 12/10/2016 ROMAINE LR DOI Ot K91.89 OTH POSTPROCEDURAL COMPLICATIONS AND DIS 12/10/2016 ROMAINE LR DOI Ot N39.0 URINARY TRACT INFECTION, SITE NOT SPECIF 12/10/2016 ROMAINE LR DOI Ot Z85.03 8 PERSONAL HISTORY OF MALIGNANT NEOPLASM O 12/10/2016 AYDEN TELLO MD E Ot D64.9 ANEMIA, UNSPECIFIED 12/10/2016 AYDEN TELLO MD Ot E46 UNSPECIFIED PROTEIN-CALORIE MALNUTRITION 12/10/2016 AYDEN TELLO MD Ot E88.0 9 OTH DISORDERS OF PLASMA-PROTEIN METABOLI 12/10/2016 AYDEN TELLO MD E Ot G72.8 9 OTHER SPECIFIED MYOPATHIES 12/10/2016 AYDEN TELLO MD E Ot I10 ESSENTIAL (PRIMARY) HYPERTENSION 12/10/2016 AYDEN TELLO MD E Ot I48.0 PAROXYSMAL ATRIAL FIBRILLATION 12/10/2016 AYDEN TELLO MD Ot J18.9 PNEUMONIA, UNSPECIFIED ORGANISM 12/10/2016 AYDEN TELLO MD E Ot J96.0 1 ACUTE RESPIRATORY FAILURE WITH HYPOXIA 12/10/2016 AYDEN TELLO MD Ot J98.1 1 ATELECTASIS 12/10/2016 AYDEN TELLO MD Ot K56.7 ILEUS, UNSPECIFIED 12/10/2016 AYDEN TELLO MD E Ot 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, SUBSE 12/10/2016 AYDEN TELLO MD Ot Z48.3 AFTERCARE FOLLOWING SURGERY FOR NEOPLASM 12/10/2016 AYDEN TELLO MD Ot Z85.0 38 PERSONAL HISTORY OF MALIGNANT NEOPLASM O 12/10/2016 AYDEN TELLO MD E Ot Z90.4 9 ACQUIRED ABSENCE OF OTHER SPECIFIED PART 12/10/2016 AYDEN TELLO MD Ot D64.9 ANEMIA, UNSPECIFIED 12/10/2016 AYDEN TELLO MD Ot E46 UNSPECIFIED PROTEIN-CALORIE MALNUTRITION 12/10/2016 AYDEN TELLO MD E Ot E88.0 9 OTH DISORDERS OF PLASMA-PROTEIN METABOLI 12/10/2016 AYDEN TELLO MD Ot G72.8 9 OTHER SPECIFIED MYOPATHIES 12/10/2016 AYDEN TELLO MD Ot I10 ESSENTIAL (PRIMARY) HYPERTENSION 12/10/2016 AYDEN TELLO MD E Ot I48.0 PAROXYSMAL ATRIAL FIBRILLATION 12/10/2016 AYDEN TELLO MD Ot J18.9 PNEUMONIA, UNSPECIFIED ORGANISM 12/10/2016 AYDEN TELLO MD E Ot J96.0 1 ACUTE RESPIRATORY FAILURE WITH HYPOXIA 12/10/2016 AYDEN TELLO MD E Ot J98.1 1 ATELECTASIS 12/10/2016 AYDEN TELLO MD E Ot K56.7 ILEUS, UNSPECIFIED 12/10/2016 RAVIN TELLO MDIC E Ot 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, SUBSE 12/10/2016 AYDEN TELLO MD E Ot Z48.3 AFTERCARE FOLLOWING SURGERY FOR NEOPLASM 12/10/2016 AYDEN TELLO MD E Ot Z85.0 38 PERSONAL HISTORY OF MALIGNANT NEOPLASM O 12/10/2016 AYDEN TELLO MD E Ot Z90.4 9 ACQUIRED ABSENCE OF OTHER SPECIFIED PART 12/10/2016 AYDEN TELLO MD E Ot D64.9 ANEMIA, UNSPECIFIED 12/10/2016 AYDEN TELLO MD E Ot E46 UNSPECIFIED PROTEIN-CALORIE MALNUTRITION 12/10/2016 AYDEN TELLO MD E Ot E88.0 9 OTH DISORDERS OF PLASMA-PROTEIN METABOLI 12/10/2016 AYDEN TELLO MD Ot G72.8 9 OTHER SPECIFIED MYOPATHIES 12/10/2016 AYDEN TELLO MD Ot I10 ESSENTIAL (PRIMARY) HYPERTENSION 12/10/2016 AYDEN TELLO MD E Ot I48.0 PAROXYSMAL ATRIAL FIBRILLATION 12/10/2016 AYDEN TELLO MD E Ot J18.9 PNEUMONIA, UNSPECIFIED ORGANISM 12/10/2016 AYDEN TELLO MD E Ot J96.0 1 ACUTE RESPIRATORY FAILURE WITH HYPOXIA 12/10/2016 AYDEN TELLO MD E Ot J98.1 1 ATELECTASIS 12/10/2016 AYDEN TELLO MD E Ot K56.7 ILEUS, UNSPECIFIED 12/10/2016 AYDEN TELLO MD E Ot 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, SUBSE 12/10/2016 RAVIN TELLO MDIC E Ot Z48.3 AFTERCARE FOLLOWING SURGERY FOR NEOPLASM 12/10/2016 RAVIN TELLO MDIC E Ot Z85.0 38 PERSONAL HISTORY OF MALIGNANT NEOPLASM O 12/10/2016 RAVIN TELLO MDIC E Ot Z90.4 9 ACQUIRED ABSENCE OF OTHER SPECIFIED PART 12/11/2016 AYDEN TELLO MD E Ot D64.9 ANEMIA, UNSPECIFIED 12/11/2016 RAVIN TELLO MDIC E Ot E46 UNSPECIFIED PROTEIN-CALORIE MALNUTRITION 12/11/2016 RAVIN TELLO MDIC E Ot E88.0 9 OTH DISORDERS OF PLASMA-PROTEIN METABOLI 12/11/2016 ELISHA BRICENO AYDEN E Ot G72.8 9 OTHER SPECIFIED MYOPATHIES 12/11/2016 RAVIN TELLO MDIC E Ot I10 ESSENTIAL (PRIMARY) HYPERTENSION 12/11/2016 RAVIN TELLO MDIC E Ot I48.0 PAROXYSMAL ATRIAL FIBRILLATION 12/11/2016 RAVIN TELLO MDIC E Ot J18.9 PNEUMONIA, UNSPECIFIED ORGANISM 12/11/2016 RAVIN TELLO MDIC E Ot J96.0 1 ACUTE RESPIRATORY FAILURE WITH HYPOXIA 12/11/2016 RAVIN TELLO MDIC E Ot J98.1 1 ATELECTASIS 12/11/2016 RAVIN TELLO MDIC E Ot K56.7 ILEUS, UNSPECIFIED 12/11/2016 RAVIN TELLO MDIC E Ot 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, SUBSE 12/11/2016 RAVIN TELLO MDIC E Ot Z48.3 AFTERCARE FOLLOWING SURGERY FOR NEOPLASM 12/11/2016 AYDEN TELLO MD E Ot Z85.0 38 PERSONAL HISTORY OF MALIGNANT NEOPLASM O 12/11/2016 AYDEN TELLO MD E Ot Z90.4 9 ACQUIRED ABSENCE OF OTHER SPECIFIED PART 12/12/2016 AYDEN TELLO MD E Ot D64.9 ANEMIA, UNSPECIFIED 12/12/2016 AYDEN TELLO MD E Ot E46 UNSPECIFIED PROTEIN-CALORIE MALNUTRITION 12/12/2016 RAVIN TELLO MDIC E Ot E88.0 9 OTH DISORDERS OF PLASMA-PROTEIN METABOLI 12/12/2016 AYDEN TELLO MD E Ot G72.8 9 OTHER SPECIFIED MYOPATHIES 12/12/2016 AYDEN TELLO MD E Ot I10 ESSENTIAL (PRIMARY) HYPERTENSION 12/12/2016 RAVIN TELLO MDIC E Ot I48.0 PAROXYSMAL ATRIAL FIBRILLATION 12/12/2016 AYDEN TELLO MD E Ot J18.9 PNEUMONIA, UNSPECIFIED ORGANISM 12/12/2016 AYDEN TELLO MD E Ot J96.0 1 ACUTE RESPIRATORY FAILURE WITH HYPOXIA 12/12/2016 AYDEN TELLO MD E Ot J98.1 1 ATELECTASIS 12/12/2016 AYDEN TELLO MD E Ot K56.7 ILEUS, UNSPECIFIED 12/12/2016 AYDEN TELLO MD E Ot 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, SUBSE 12/12/2016 AYDEN TELLO MD E Ot Z48.3 AFTERCARE FOLLOWING SURGERY FOR NEOPLASM 12/12/2016 AYDEN TELLO MD E Ot Z85.0 38 PERSONAL HISTORY OF MALIGNANT NEOPLASM O 12/12/2016 YADEN TELLO MD E Ot Z90.4 9 ACQUIRED ABSENCE OF OTHER SPECIFIED PART 12/13/2016 AYDEN TELLO MD E Ot D64.9 ANEMIA, UNSPECIFIED 12/13/2016 AYDEN TELLO MD E Ot E46 UNSPECIFIED PROTEIN-CALORIE MALNUTRITION 12/13/2016 AYDEN TELLO MD E Ot E88.0 9 OTH DISORDERS OF PLASMA-PROTEIN METABOLI 12/13/2016 AYDEN TELLO MD E Ot G72.8 9 OTHER SPECIFIED MYOPATHIES 12/13/2016 AYDEN TELLO MD E Ot I10 ESSENTIAL (PRIMARY) HYPERTENSION 12/13/2016 AYDEN TELLO MD E Ot I48.0 PAROXYSMAL ATRIAL FIBRILLATION 12/13/2016 AYDEN TELLO MD E Ot J18.9 PNEUMONIA, UNSPECIFIED ORGANISM 12/13/2016 AYDEN TELLO MD Ot J96.0 1 ACUTE RESPIRATORY FAILURE WITH HYPOXIA 12/13/2016 AYDEN TELLO MD E Ot J98.1 1 ATELECTASIS 12/13/2016 AYDEN TELLO MD Ot K56.7 ILEUS, UNSPECIFIED 12/13/2016 AYDEN TELLO MD E Ot 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, SUBSE 12/13/2016 AYDEN TELLO MD E Ot Z48.3 AFTERCARE FOLLOWING SURGERY FOR NEOPLASM 12/13/2016 AYDEN TELLO MD E Ot Z85.0 38 PERSONAL HISTORY OF MALIGNANT NEOPLASM O 12/13/2016 AYDEN TELLO MD E Ot Z90.4 9 ACQUIRED ABSENCE OF OTHER SPECIFIED PART 12/13/2016 TELLO MD, AYDEN E Ot D64.9 ANEMIA, UNSPECIFIED 12/13/2016 RAVIN TELLO MDIC E Ot E46 UNSPECIFIED PROTEIN-CALORIE MALNUTRITION 12/13/2016 RAVIN TELLO MDIC E Ot E88.0 9 OTH DISORDERS OF PLASMA-PROTEIN METABOLI 12/13/2016 AYDEN TELLO MD E Ot G72.8 9 OTHER SPECIFIED MYOPATHIES 12/13/2016 RAVIN TELLO MDIC E Ot I10 ESSENTIAL (PRIMARY) HYPERTENSION 12/13/2016 RAVIN TELLO MDIC E Ot I48.0 PAROXYSMAL ATRIAL FIBRILLATION 12/13/2016 RAVIN TELLO MDIC E Ot J18.9 PNEUMONIA, UNSPECIFIED ORGANISM 12/13/2016 ELISHA BRICENO AYDEN E Ot J96.0 1 ACUTE RESPIRATORY FAILURE WITH HYPOXIA 12/13/2016 RAVIN TELLO MDIC E Ot J98.1 1 ATELECTASIS 12/13/2016 AYDEN TELLO MD E Ot K56.7 ILEUS, UNSPECIFIED 12/13/2016 AYDEN TELLO MD E Ot 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, SUBSE 12/13/2016 RAVIN TELLO MDIC E Ot Z48.3 AFTERCARE FOLLOWING SURGERY FOR NEOPLASM 12/13/2016 AYDEN TELLO MD E Ot Z85.0 38 PERSONAL HISTORY OF MALIGNANT NEOPLASM O 12/13/2016 RAVIN TELLO MDIC E Ot Z90.4 9 ACQUIRED ABSENCE OF OTHER SPECIFIED PART 12/14/2016 AYDEN TELLO MD E Ot D64.9 ANEMIA, UNSPECIFIED 12/14/2016 RAVIN TELLO MDIC E Ot E46 UNSPECIFIED PROTEIN-CALORIE MALNUTRITION 12/14/2016 RAVIN TELLO MDIC E Ot E88.0 9 OTH DISORDERS OF PLASMA-PROTEIN METABOLI 12/14/2016 AYDEN TELLO MD E Ot G72.8 9 OTHER SPECIFIED MYOPATHIES 12/14/2016 ELISHA BRICENO AYDEN E Ot I10 ESSENTIAL (PRIMARY) HYPERTENSION 12/14/2016 RAVIN TELLO MDIC E Ot I48.0 PAROXYSMAL ATRIAL FIBRILLATION 12/14/2016 AYDEN TELLO MD E Ot J18.9 PNEUMONIA, UNSPECIFIED ORGANISM 12/14/2016 RAVIN TELLO MDIC E Ot J96.0 1 ACUTE RESPIRATORY FAILURE WITH HYPOXIA 12/14/2016 AYDEN TELLO MD E Ot J98.1 1 ATELECTASIS 12/14/2016 TELLO MD, AYDEN E Ot K56.7 ILEUS, UNSPECIFIED 12/14/2016 ELISHA BRICENO AYDEN E Ot 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, SUBSE 12/14/2016 RAVIN TELLO MDIC E Ot Z48.3 AFTERCARE FOLLOWING SURGERY FOR NEOPLASM 12/14/2016 RAVIN TLELO MDIC E Ot Z85.0 38 PERSONAL HISTORY OF MALIGNANT NEOPLASM O 12/14/2016 AYDEN TELLO MD E Ot Z90.4 9 ACQUIRED ABSENCE OF OTHER SPECIFIED PART 12/15/2016 RAVIN TELLO MDIC E Ot D64.9 ANEMIA, UNSPECIFIED 12/15/2016 RAVIN TELLO MDIC E Ot E46 UNSPECIFIED PROTEIN-CALORIE MALNUTRITION 12/15/2016 RAVIN TELLO MDIC E Ot E88.0 9 OTH DISORDERS OF PLASMA-PROTEIN METABOLI 12/15/2016 ELISHA BRICENO AYDEN E Ot G72.8 9 OTHER SPECIFIED MYOPATHIES 12/15/2016 ELISHA BRICENO AYDEN E Ot I10 ESSENTIAL (PRIMARY) HYPERTENSION 12/15/2016 ELISHA BRICENO AYDEN E Ot I48.0 PAROXYSMAL ATRIAL FIBRILLATION 12/15/2016 ELISHA BRICENO AYDEN E Ot J18.9 PNEUMONIA, UNSPECIFIED ORGANISM 12/15/2016 ELISHA BRICENO AYDEN E Ot J96.0 1 ACUTE RESPIRATORY FAILURE WITH HYPOXIA 12/15/2016 ELISHA BRICENO AYDEN E Ot J98.1 1 ATELECTASIS 12/15/2016 ELISHA BRICENO AYDEN E Ot K56.7 ILEUS, UNSPECIFIED 12/15/2016 ELISHA BRICENO AYDEN E Ot 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, SUBSE 12/15/2016 ELISHA BRICENO AYDEN E Ot Z48.3 AFTERCARE FOLLOWING SURGERY FOR NEOPLASM 12/15/2016 RAVIN TELLO MDIC E Ot Z85.0 38 PERSONAL HISTORY OF MALIGNANT NEOPLASM O 12/15/2016 ELISHA BRICENO AYDEN E Ot Z90.4 9 ACQUIRED ABSENCE OF OTHER SPECIFIED PART 12/15/2016 ELISHA BRICENO AYDEN E Ot D64.9 ANEMIA, UNSPECIFIED 12/15/2016 ELISHA BRICENO AYDEN E Ot E46 UNSPECIFIED PROTEIN-CALORIE MALNUTRITION 12/15/2016 RAVIN TELLO MDIC E Ot E88.0 9 OTH DISORDERS OF PLASMA-PROTEIN METABOLI 12/15/2016 ELISHA BRICENO AYDEN E Ot G72.8 9 OTHER SPECIFIED MYOPATHIES 12/15/2016 AYDEN TELLO MD E Ot I10 ESSENTIAL (PRIMARY) HYPERTENSION 12/15/2016 AYDEN TELLO MD Ot I48.0 PAROXYSMAL ATRIAL FIBRILLATION 12/15/2016 AYDEN TELLO MD Ot J18.9 PNEUMONIA, UNSPECIFIED ORGANISM 12/15/2016 AYDEN TELLO MD E Ot J96.0 1 ACUTE RESPIRATORY FAILURE WITH HYPOXIA 12/15/2016 AYDEN TELLO MD Ot J98.1 1 ATELECTASIS 12/15/2016 AYDEN TELLO MD E Ot K56.7 ILEUS, UNSPECIFIED 12/15/2016 AYDEN TLELO MD E Ot R60.1 GENERALIZED EDEMA 12/15/2016 AYDEN TELLO MD Ot 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, SUBSE 12/15/2016 AYDEN TELLO MD Ot Z23 ENCOUNTER FOR IMMUNIZATION 12/15/2016 AYDEN TELLO MD Ot Z48.3 AFTERCARE FOLLOWING SURGERY FOR NEOPLASM 12/15/2016 AYDEN TELLO MD Ot Z85.0 38 PERSONAL HISTORY OF MALIGNANT NEOPLASM O 12/15/2016 AYDEN TELLO MD Ot Z90.4 9 ACQUIRED ABSENCE OF OTHER SPECIFIED PART 12/15/2016 AYDEN TELLO MD Ot Z99.8 1 DEPENDENCE ON SUPPLEMENTAL OXYGEN 12/31/2016 Ot V76.12 OTH SCREEN MAMMO- MALIGN NEOPLASM OF NOEMY 12/31/2016 YORDAN RODRIGUEZ MD Ot V76.1 2 OTH SCREEN MAMMO-MALIGN NEOPLASM OF NOEMY 12/31/2016 YORDAN RODRIGUEZ MD Ot V76.1 2 OTH SCREEN MAMMO-MALIGN NEOPLASM OF NOEMY 12/31/2016 YORDAN RODRIGUEZ MD Ot R30.0 DYSURIA 12/31/2016 YORDAN RODRIGUEZ MD Ot R35.0 FREQUENCY OF MICTURITION 12/31/2016 YORDAN RODRIGUEZ MD Ot R05 COUGH 12/31/2016 YORDAN RODRIGUEZ MD Ot Z12.3 1 ENCNTR SCREEN MAMMOGRAM FOR MALIGNANT NE 12/31/2016 YORDAN RODRIGUEZ MD Ot Z12.3 1 ENCNTR SCREEN MAMMOGRAM FOR MALIGNANT NE 12/31/2016 YORDAN RODRIGUEZ MD Ot E04.2 NONTOXIC MULTINODULAR GOITER 12/31/2016 ANNELIESE CARMICHAEL APRN Ot 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 W/O MYELOPATHY OR RADICULOPA 12/31/2016 ANNELIESE CARMICHAEL DOG LICENSE OFFICER SUPERVISOR Ot S09.90XA UNSPECIFIED INJURY OF HEAD, INITIAL ENCO 12/31/2016 ANNELIESE CARMICHAEL DOG LICENSE OFFICER SUPERVISOR Ot W19.XXXA UNSPECIFIED FALL, INITIAL ENCOUNTER 12/31/2016 ANNELIESE CARMICHAEL DOG LICENSE OFFICER SUPERVISOR Ot Y92.009 [facility] [place] [address] [place] [facility] 12/31/2016 TOMÁS CARMICHAELChanel Reina DOG LICENSE OFFICER SUPERVISOR Ot Y99.8 OTHER EXTERNAL CAUSE STATUS 12/31/2016 LIDA BRICENO FAC, ALI FACP CCDS Ot E66.09 OTHER OBESITY DUE TO EXCESS CALORIES 12/31/2016 LIDA BRICENO FACC, ALI FACP CCDS Ot I48.0 PAROXYSMAL ATRIAL FIBRILLATION 12/31/2016 LIDA BRICENO FACC, ALI FACP CCDS Ot R06.02 SHORTNESS OF BREATH 12/31/2016 LIDA BRICENO FACC, ALI FACP CCDS Ot R53.83 OTHER FATIGUE 12/31/2016 SUAD CASE MD Ot D64. 9 ANEMIA, UNSPECIFIED 12/31/2016 SUAD CASE MD Ot Z01.818 ENCOUNTER FOR OTHER PREPROCEDURAL EXAMIN 12/31/2016 YORDAN RODRIGUEZ MD Ot D64.9 ANEMIA, UNSPECIFIED 12/31/2016 YORDAN RODRIGUEZ MD Ot I50.9 HEART FAILURE, UNSPECIFIED 01/04/2017 DARNELL LAZCANO MD Ot C18.2 MALIGNANT NEOPLASM OF ASCENDING COLON 01/04/2017 DARNELL LAZCANO MD Ot E66.9 OBESITY, UNSPECIFIED 01/04/2017 DARNELL LAZCANO MD Ot I10 ESSENTIAL (PRIMARY) HYPERTENSION 01/04/2017 DARNELL LAZCANO MD Ot I48.0 PAROXYSMAL ATRIAL FIBRILLATION 01/04/2017 DARNELL LAZCANO MD Ot J45.909 UNSPECIFIED ASTHMA, UNCOMPLICATED 01/04/2017 DARNELL LAZCANO MD Ot R06.02 SHORTNESS OF BREATH 01/04/2017 DARNELL LAZCANO MD Ot R53.83 OTHER FATIGUE 01/04/2017 DARNELL LAZCANO MD Ot Z68.32 BODY MASS INDEX (BMI) 32.0-32.9, ADULT 01/04/2017 DARNELL LAZCANO MD Ot Z79.899 OTHER [facility] (CURRENT) DRUG THERAPY 01/11/2017 YORDAN RODRIGUEZ MD, Ot D64.9 ANEMIA, UNSPECIFIED 01/29/2017 DARNELL LAZCANO MD Ot C18.2 MALIGNANT NEOPLASM OF ASCENDING COLON 01/29/2017 DARNELL LAZCANO MD Ot E66.9 OBESITY, UNSPECIFIED 01/29/2017 DARNELL LAZCANO MD Ot I10 ESSENTIAL (PRIMARY) HYPERTENSION 01/29/2017 DARNELL LAZCANO MD Ot I48.0 PAROXYSMAL ATRIAL FIBRILLATION 01/29/2017 DARNELL LAZCANO MD Ot J45.909 UNSPECIFIED ASTHMA, UNCOMPLICATED 01/29/2017 DARNELL LAZCANO MD Ot R06.02 SHORTNESS OF BREATH 01/29/2017 DARNELL LAZCANO MD Ot R53.83 OTHER FATIGUE 01/29/2017 DARNELL LAZCANO MD Ot Z68.32 BODY MASS INDEX (BMI) 32.0-32.9, ADULT 01/29/2017 DARNELL LAZCANO MD Ot Z79.899 OTHER [facility] (CURRENT) DRUG THERAPY 02/01/2017 YORDAN RODRIGUEZ MD Ot D64.9 ANEMIA, UNSPECIFIED 02/02/2017 YORDAN RODRIGUEZ MD Ot R05 COUGH 02/02/2017 YORDAN RODRIGUEZ MD Ot R09.0 2 HYPOXEMIA 02/04/2017 DARNELL LAZCANO MD Ot C18.2 MALIGNANT NEOPLASM OF ASCENDING COLON 02/04/2017 DARNELL LAZCANO MD Ot E66.9 OBESITY, UNSPECIFIED 02/04/2017 DARNELL LAZCANO MD Ot I10 ESSENTIAL (PRIMARY) HYPERTENSION 02/04/2017 DARNELL LAZCANO MD Ot I48.0 PAROXYSMAL ATRIAL FIBRILLATION 02/04/2017 DARNELL LAZCANO MD Ot J45.909 UNSPECIFIED ASTHMA, UNCOMPLICATED 02/04/2017 DARNELL LAZCANO MD Ot R06.02 SHORTNESS OF BREATH 02/04/2017 DARNELL LAZCANO MD Ot R53.83 OTHER FATIGUE 02/04/2017 DARNELL LAZCANO MD Ot Z68.32 BODY MASS INDEX (BMI) 32.0-32.9, ADULT 02/04/2017 DARNELL LAZCANO MD Ot Z79.899 OTHER [facility] (CURRENT) DRUG THERAPY 02/04/2017 YORDAN RODRIGUEZ MD Ot R05 COUGH 02/04/2017 YORDAN RODRIGUEZ MD Ot R09.0 2 HYPOXEMIA 02/17/2017 Ot V76.12 OTH SCREEN MAMMO- MALIGN NEOPLASM OF NOEMY 02/17/2017 YORDAN RODRIGUEZ MD Ot V76.1 2 OTH SCREEN MAMMO-MALIGN NEOPLASM OF NOEMY 02/17/2017 YORDAN RODRIGUEZ MD Ot V76.1 2 OTH SCREEN MAMMO-MALIGN NEOPLASM OF NOEMY 02/17/2017 YORDAN RODRIGUEZ MD Ot R30.0 DYSURIA 02/17/2017 YORDAN RODRIGUEZ MD, Ot R35.0 FREQUENCY OF MICTURITION 02/17/2017 YORDAN RODRIGUEZ MD Ot R05 COUGH 02/17/2017 YORDAN RODRIGUEZ MD Ot Z12.3 1 ENCNTR SCREEN MAMMOGRAM FOR MALIGNANT NE 02/17/2017 YORDAN RODRIGUEZ MD Ot Z12.3 1 ENCNTR SCREEN MAMMOGRAM FOR MALIGNANT NE 02/17/2017 YORDAN RODRIGUEZ MD Ot E04.2 NONTOXIC MULTINODULAR GOITER 02/17/2017 ANNELIESE CARMICHAEL DOG LICENSE OFFICER SUPERVISOR Ot 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 W/O MYELOPATHY OR RADICULOPA 02/17/2017 ANNELIESE CARMICHAEL DOG LICENSE OFFICER SUPERVISOR Ot S09.90XA UNSPECIFIED INJURY OF HEAD, INITIAL ENCO 02/17/2017 ANNELIESE CARMICHAEL DOG LICENSE OFFICER SUPERVISOR Ot W19.XXXA UNSPECIFIED FALL, INITIAL ENCOUNTER 02/17/2017 ANNELIESE CARMICHAEL DOG LICENSE OFFICER SUPERVISOR Ot Y92.009 [facility] [place] [address] IN [facility] [place] [facility]PRIVATE 02/17/2017 ANNELIESE CARMICHAEL DOG LICENSE OFFICER SUPERVISOR Ot Y99.8 OTHER EXTERNAL CAUSE STATUS 02/17/2017 LIDA BRICENO FAC, EMILY FACP CCDS Ot E66.09 OTHER OBESITY DUE TO EXCESS CALORIES 02/17/2017 LIDA RUIZ, ALI FACP CCDS Ot I48.0 PAROXYSMAL ATRIAL FIBRILLATION 02/17/2017 LIDA RUIZ, ALI FACP CCDS Ot R06.02 SHORTNESS OF BREATH 02/17/2017 LIDA RUIZ, ALI FACP CCDS Ot R53.83 OTHER FATIGUE 02/17/2017 SUAD CASE MD Ot D64. 9 ANEMIA, UNSPECIFIED 02/17/2017 SUAD CASE MD Ot Z01.818 ENCOUNTER FOR OTHER PREPROCEDURAL EXAMIN 02/17/2017 DARNELL LAZCANO MD Ot C18.2 MALIGNANT NEOPLASM OF ASCENDING COLON 02/17/2017 DARNELL LAZCANO MD Ot E66.9 OBESITY, UNSPECIFIED 02/17/2017 DARNELL LAZCANO MD Ot I10 ESSENTIAL (PRIMARY) HYPERTENSION 02/17/2017 DARNELL LAZCANO MD Ot I48.0 PAROXYSMAL ATRIAL FIBRILLATION 02/17/2017 DARNELL LAZCANO MD Ot J45.909 UNSPECIFIED ASTHMA, UNCOMPLICATED 02/17/2017 DARNELL LAZCANO MD Ot R06.02 SHORTNESS OF BREATH 02/17/2017 DARNELL LAZCANO MD Ot R53.83 OTHER FATIGUE 02/17/2017 DARNELL LAZCANO MD Ot Z68.32 BODY MASS INDEX (BMI) 32.0-32.9, ADULT 02/17/2017 DARNELL LAZCANO MD Ot Z79.899 OTHER BRIM CURLER (CURRENT) DRUG THERAPY 02/17/2017 YORDAN RODRIGUEZ MD Ot D64.9 ANEMIA, UNSPECIFIED 02/17/2017 YORDAN RODRIGUEZ MD Ot I50.9 HEART FAILURE, UNSPECIFIED 02/17/2017 YORDAN RODRIGUEZ MD Ot D64.9 ANEMIA, UNSPECIFIED 02/17/2017 YORDAN RODRIGUEZ MD Ot R05 COUGH 02/17/2017 YORDAN RODRIGUEZ MD Ot R09.0 2 HYPOXEMIA 02/17/2017 YORDAN RODRIGUEZ MD Ot Z12.3 1 ENCNTR SCREEN MAMMOGRAM FOR MALIGNANT NE 03/04/2017 DARNELL LAZCANO MD Ot C18.2 MALIGNANT NEOPLASM OF ASCENDING COLON 03/04/2017 DARNELL LAZCANO MD Ot E66.9 OBESITY, UNSPECIFIED 03/04/2017 DARNELL LAZCANO MD Ot I10 ESSENTIAL (PRIMARY) HYPERTENSION 03/04/2017 DARNELL LAZCANO MD Ot I48.0 PAROXYSMAL ATRIAL FIBRILLATION 03/04/2017 DARNELL LAZCANO MD Ot J45.909 UNSPECIFIED ASTHMA, UNCOMPLICATED 03/04/2017 DARNELL LAZCANO MD Ot R06.02 SHORTNESS OF BREATH 03/04/2017 DARNELL LAZCANO MD Ot R53.83 OTHER FATIGUE 03/04/2017 DARNELL LAZCANO MD Ot Z68.32 BODY MASS INDEX (BMI) 32.0-32.9, ADULT 03/04/2017 DARNELL LAZCANO MD Ot Z79.899 OTHER [facility] (CURRENT) DRUG THERAPY 03/10/2017 YORDAN RODRIGUEZ MD Ot Z12.3 1 ENCNTR SCREEN MAMMOGRAM FOR MALIGNANT NE 03/26/2017 YORDAN RODRIGUEZ MD Ot D64.9 ANEMIA, UNSPECIFIED 03/26/2017 YORDAN RODRIGUEZ MD Ot I50.9 HEART FAILURE, UNSPECIFIED 04/30/2017 DARNELL LAZCANO MD Ot C18.2 MALIGNANT NEOPLASM OF ASCENDING COLON 04/30/2017 DARNELL LAZCANO MD Ot E66.9 OBESITY, UNSPECIFIED 04/30/2017 DARNELL LAZCANO MD Ot I10 ESSENTIAL (PRIMARY) HYPERTENSION 04/30/2017 DARNELL LAZCANO MD Ot I48.0 PAROXYSMAL ATRIAL FIBRILLATION 04/30/2017 DARNELL LAZCANO MD Ot J45.909 UNSPECIFIED ASTHMA, UNCOMPLICATED 04/30/2017 DARNELL LAZCANO MD Ot R06.02 SHORTNESS OF BREATH 04/30/2017 DARNELL LAZCANO MD Ot R53.83 OTHER FATIGUE 04/30/2017 DARNELL LAZCANO MD Ot Z68.32 BODY MASS INDEX (BMI) 32.0-32.9, ADULT 04/30/2017 DARNELL LAZCANO MD Ot Z79.899 OTHER BRIM CURLER (CURRENT) DRUG THERAPY 06/16/2017 Ot V76.12 OTH SCREEN MAMMO- MALIGN NEOPLASM OF NOEMY 06/16/2017 YORDAN RODRIGUEZ MD Ot V76.1 2 OTH SCREEN MAMMO-MALIGN NEOPLASM OF NOEMY 06/16/2017 YORDAN RODRIGUEZ MD Ot V76.1 2 OTH SCREEN MAMMO-MALIGN NEOPLASM OF NOEMY 06/16/2017 YORDAN RODRIGUEZ MD Ot R30.0 DYSURIA 06/16/2017 YORDAN RODRIGUEZ MD Ot R35.0 FREQUENCY OF MICTURITION 06/16/2017 YORDAN RODRIGUEZ MD Ot R05 COUGH 06/16/2017 YORDAN RODRIGUEZ MD Ot Z12.3 1 ENCNTR SCREEN MAMMOGRAM FOR MALIGNANT NE 06/16/2017 YORDAN RODRIGUEZ MD Ot Z12.3 1 ENCNTR SCREEN MAMMOGRAM FOR MALIGNANT NE 06/16/2017 YORDAN RODRIGUEZ MD Ot E04.2 NONTOXIC MULTINODULAR GOITER 06/16/2017 ANNELIESE CARMICHAEL APRN Ot 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 W/O MYELOPATHY OR RADICULOPA 06/16/2017 ANNELIESE CARMICHAEL APRN Ot S09.90XA UNSPECIFIED INJURY OF HEAD, INITIAL ENCO 06/16/2017 ANNELIESE CARMICHAEL APRN Ot W19.XXXA UNSPECIFIED FALL, INITIAL ENCOUNTER 06/16/2017 ANNELIESE CARMICHAEL APRN Ot Y92.009 [facility] [place] [facility] [place] [facility] (PRIVATE 06/16/2017 ANNELIESE CARMICHAEL APRN Ot Y99.8 OTHER EXTERNAL CAUSE STATUS 06/16/2017 LIDA BRICENO FACC, EMILY FACP CCDS Ot E66.09 OTHER OBESITY DUE TO EXCESS CALORIES 06/16/2017 LIDA BRICENO FAC, ALI FACP CCDS Ot I48.0 PAROXYSMAL ATRIAL FIBRILLATION 06/16/2017 LIDA BRICENO FAC, ALI FACP CCDS Ot R06.02 SHORTNESS OF BREATH 06/16/2017 LIDA BRICENO FAC, ALI FACP CCDS Ot R53.83 OTHER FATIGUE 06/16/2017 SUAD CASE MD Ot D64. 9 ANEMIA, UNSPECIFIED 06/16/2017 SUAD CASE MD Ot Z01.818 ENCOUNTER FOR OTHER PREPROCEDURAL EXAMIN 06/16/2017 YORDAN RODRIGUEZ MD Ot D64.9 ANEMIA, UNSPECIFIED 06/16/2017 YORDAN RODRIGUEZ MD Ot I50.9 HEART FAILURE, UNSPECIFIED 06/16/2017 YORDAN RODRIGUEZ MD Ot D64.9 ANEMIA, UNSPECIFIED 06/16/2017 YORDAN RODRIGUEZ MD Ot R05 COUGH 06/16/2017 YORDAN RODRIGUEZ MD Ot R09.0 2 HYPOXEMIA 06/16/2017 YORDAN RODRIGUEZ MD Ot Z12.3 1 ENCNTR SCREEN MAMMOGRAM FOR MALIGNANT NE 06/16/2017 DARNELL LAZCANO MD Ot C18.2 MALIGNANT NEOPLASM OF ASCENDING COLON 06/16/2017 DARNELL LAZCANO MD Ot E66.9 OBESITY, UNSPECIFIED 06/16/2017 DARNELL LAZCANO MD Ot I10 ESSENTIAL (PRIMARY) HYPERTENSION 06/16/2017 DARNELL LAZCANO MD Ot I48.0 PAROXYSMAL ATRIAL FIBRILLATION 06/16/2017 DARNELL LAZCANO MD Ot J45.909 UNSPECIFIED ASTHMA, UNCOMPLICATED 06/16/2017 DARNELL LAZCANO MD Ot R06.02 SHORTNESS OF BREATH 06/16/2017 DARNELL LAZCANO MD Ot R53.83 OTHER FATIGUE 06/16/2017 DARNELL LAZCANO MD Ot Z68.32 BODY MASS INDEX (BMI) 32.0-32.9, ADULT 06/16/2017 DARNELL LAZCANO MD Ot Z79.899 OTHER [facility] (CURRENT) DRUG THERAPY 06/17/2017 Ot V76.12 OTH SCREEN MAMMO- MALIGN NEOPLASM OF NOEMY 06/17/2017 YORDAN RODRIGUEZ MD Ot V76.1 2 OTH SCREEN MAMMO-MALIGN NEOPLASM OF [place] 06/17/2017 YORDAN RODRIGUEZ MD Ot V76.1 2 OTH SCREEN MAMMO-MALIGN NEOPLASM OF [place] 06/17/2017 YORDAN RODRIGUEZ MD Ot R30.0 DYSURIA 06/17/2017 YORDAN RODRIGUEZ MD Ot R35.0 FREQUENCY OF MICTURITION 06/17/2017 YORDAN RODRIGUEZ MD Ot R05 COUGH 06/17/2017 YORDAN RODRIGUEZ MD Ot Z12.3 1 ENCNTR SCREEN MAMMOGRAM FOR MALIGNANT NE 06/17/2017 YORDAN RODRIGUEZ MD Ot Z12.3 1 ENCNTR SCREEN MAMMOGRAM FOR MALIGNANT NE 06/17/2017 YORDAN RODRIGUEZ MD Ot E04.2 NONTOXIC MULTINODULAR GOITER 06/17/2017 ANNELIESE CARMICHAEL DOG LICENSE OFFICER SUPERVISOR Ot 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 W/O MYELOPATHY OR RADICULOPA 06/17/2017 ANNELIESE CARMICHAEL DOG LICENSE OFFICER SUPERVISOR Ot S09.90XA UNSPECIFIED INJURY OF HEAD, INITIAL ENCO 06/17/2017 ANNELIESE CARMICHAEL DOG LICENSE OFFICER SUPERVISOR Ot W19.XXXA UNSPECIFIED FALL, INITIAL ENCOUNTER 06/17/2017 ANNELIESE CARMICHAEL DOG LICENSE OFFICER SUPERVISOR Ot Y92.009 [facility] [place] [address] IN [facility] [place] [facility] (PRIVATE 06/17/2017 ANNELIESE CARMICHAEL DOG LICENSE OFFICER SUPERVISOR Ot Y99.8 OTHER EXTERNAL CAUSE STATUS 06/17/2017 LIDA BRICENO FACC, ALI FACP CCDS Ot E66.09 OTHER OBESITY DUE TO EXCESS CALORIES 06/17/2017 LIDA BRICENO FACC, ALI FACP CCDS Ot I48.0 PAROXYSMAL ATRIAL FIBRILLATION 06/17/2017 LIDA BRICENO FACC, ALI FACP CCDS Ot R06.02 SHORTNESS OF BREATH 06/17/2017 LIDA BRICENO FACC, ALI FACP CCDS Ot R53.83 OTHER FATIGUE 06/17/2017 SUAD CASE MD Ot D64. 9 ANEMIA, UNSPECIFIED 06/17/2017 SUAD CASE MD Ot Z01.818 ENCOUNTER FOR OTHER PREPROCEDURAL EXAMIN 06/17/2017 YORDAN RODRIGUEZ MD Ot D64.9 ANEMIA, UNSPECIFIED 06/17/2017 YORDAN RODRIGUEZ MD Ot I50.9 HEART FAILURE, UNSPECIFIED 06/17/2017 YORDAN RODRIGUEZ MD Ot D64.9 ANEMIA, UNSPECIFIED 06/17/2017 YORDAN RODRIGUEZ MD Ot R05 COUGH 06/17/2017 YORDAN RODRIGUEZ MD Ot R09.0 2 HYPOXEMIA 06/17/2017 YORDAN RODRIGUEZ MD Ot Z12.3 1 ENCNTR SCREEN MAMMOGRAM FOR MALIGNANT NE 06/17/2017 DARNELL LAZCANO MD Ot C18.2 MALIGNANT NEOPLASM OF ASCENDING COLON 06/17/2017 DARNELL LAZCANO MD Ot E66.9 OBESITY, UNSPECIFIED 06/17/2017 DARNELL LAZCANO MD Ot I10 ESSENTIAL (PRIMARY) HYPERTENSION 06/17/2017 DARNELL LAZCANO MD Ot I48.0 PAROXYSMAL ATRIAL FIBRILLATION 06/17/2017 DARNELL LAZCANO MD Ot J45.909 UNSPECIFIED ASTHMA, UNCOMPLICATED 06/17/2017 DARNELL LAZCANO MD Ot R06.02 SHORTNESS OF BREATH 06/17/2017 DARNELL LAZCANO MD Ot R53.83 OTHER FATIGUE 06/17/2017 DARNELL LAZCANO MD Ot Z68.32 BODY MASS INDEX (BMI) 32.0-32.9, ADULT 06/17/2017 DARNELL LAZCANO MD Ot Z79.899 OTHER BRIM CURLER (CURRENT) DRUG THERAPY 06/17/2017 Ot V76.12 OTH SCREEN MAMMO- MALIGN NEOPLASM OF [place] 06/17/2017 YORDAN RODRIGUEZ MD Ot V76.1 2 OTH SCREEN MAMMO-MALIGN NEOPLASM OF [place] 06/17/2017 YORDAN RODRIGUEZ MD Ot V76.1 2 OTH SCREEN MAMMO-MALIGN NEOPLASM OF [place] 06/17/2017 YORDAN RODRIGUEZ MD Ot R30.0 DYSURIA 06/17/2017 YORDAN RODRIGUEZ MD Ot R35.0 FREQUENCY OF MICTURITION 06/17/2017 YORDAN RODRIGUEZ MD Ot R05 COUGH 06/17/2017 YORDAN RODRIGUEZ MD Ot Z12.3 1 ENCNTR SCREEN MAMMOGRAM FOR MALIGNANT NE 06/17/2017 YORDAN RODRIGUEZ MD Ot Z12.3 1 ENCNTR SCREEN MAMMOGRAM FOR MALIGNANT NE 06/17/2017 YORDAN RODRIGUEZ MD Ot E04.2 NONTOXIC MULTINODULAR GOITER 06/17/2017 ANNELIESE CARMICHAEL APRN Ot 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 W/O MYELOPATHY OR RADICULOPA 06/17/2017 ANNELIESE CARMICHAEL APRN Ot S09.90XA UNSPECIFIED INJURY OF HEAD, INITIAL ENCO 06/17/2017 ANNELIESE CARMICHAEL APRN Ot W19.XXXA UNSPECIFIED FALL, INITIAL ENCOUNTER 06/17/2017 ANNELIESE CARMICHAEL APRN Ot Y92.009 [facility] [place] [address] IN [facility] (PRIVATE 06/17/2017 ANNELIESE CARMICHAEL SHEILA Ot Y99.8 OTHER EXTERNAL CAUSE STATUS 06/17/2017 LIDA BRICENO FAC, EMILY FACP CCDS Ot E66.09 OTHER OBESITY DUE TO EXCESS CALORIES 06/17/2017 LIDA BRICENO FACMartha, ALI FACP CCDS Ot I48.0 PAROXYSMAL ATRIAL FIBRILLATION 06/17/2017 LIDA BRICENO FACMartha, ALI FACP CCDS Ot R06.02 SHORTNESS OF BREATH 06/17/2017 LIDA BRICENO FACC, ALI FACP CCDS Ot R53.83 OTHER FATIGUE 06/17/2017 SUAD CASE MD, Ot D64. 9 ANEMIA, UNSPECIFIED 06/17/2017 SUAD CASE MD Ot Z01.818 ENCOUNTER FOR OTHER PREPROCEDURAL EXAMIN 06/17/2017 YORDAN RODRIGUEZ MD, Ot D64.9 ANEMIA, UNSPECIFIED 06/17/2017 YORDAN RODRIGUEZ MD Ot I50.9 HEART FAILURE, UNSPECIFIED 06/17/2017 YORDAN RODRIGUEZ MD, Ot D64.9 ANEMIA, UNSPECIFIED 06/17/2017 YORDAN RODRIGUEZ MD Ot R05 COUGH 06/17/2017 YORDAN RODRIGUEZ MD Ot R09.0 2 HYPOXEMIA 06/17/2017 YORDAN RODRIGUEZ MD Ot Z12.3 1 ENCNTR SCREEN MAMMOGRAM FOR MALIGNANT NE 06/17/2017 DARNELL LAZCANO MD Ot C18.2 MALIGNANT NEOPLASM OF ASCENDING COLON 06/17/2017 DARNELL LAZCANO MD Ot E66.9 OBESITY, UNSPECIFIED 06/17/2017 DARNELL LAZCANO MD Ot I10 ESSENTIAL (PRIMARY) HYPERTENSION 06/17/2017 DARNELL LAZCANO MD Ot I48.0 PAROXYSMAL ATRIAL FIBRILLATION 06/17/2017 DARNELL LAZCANO MD Ot J45.909 UNSPECIFIED ASTHMA, UNCOMPLICATED 06/17/2017 DARNELL LAZCANO MD Ot R06.02 SHORTNESS OF BREATH 06/17/2017 DARNELL LAZCANO MD Ot R53.83 OTHER FATIGUE 06/17/2017 DARNELL LAZCANO MD Ot Z68.32 BODY MASS INDEX (BMI) 32.0-32.9, ADULT 06/17/2017 DARNELL LAZCANO MD Ot Z79.899 OTHER [facility] (CURRENT) DRUG THERAPY 06/18/2017 YORDAN RODRIGUEZ MD Ot K43.9 VENTRAL HERNIA WITHOUT OBSTRUCTION OR GA 06/18/2017 YORDAN RODRIGUEZ MD Ot 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, PART UNSP, W/O PERF 06/18/2017 YORDAN RODRIGUEZ MD Ot Z98.8 90 OTHER SPECIFIED POSTPROCEDURAL STATES 06/30/2017 DARNELL LAZCANO MD Ot C18.2 MALIGNANT NEOPLASM OF ASCENDING COLON 06/30/2017 DARNELL LAZCANO MD Ot E66.9 OBESITY, UNSPECIFIED 06/30/2017 DARNELL LAZCANO MD Ot I10 ESSENTIAL (PRIMARY) HYPERTENSION 06/30/2017 DARNELL LAZCANO MD Ot I48.0 PAROXYSMAL ATRIAL FIBRILLATION 06/30/2017 DARNELL LAZCANO MD Ot J45.909 UNSPECIFIED ASTHMA, UNCOMPLICATED 06/30/2017 DARNELL LAZCANO MD Ot R06.02 SHORTNESS OF BREATH 06/30/2017 DARNELL LAZCANO MD Ot R53.83 OTHER FATIGUE 06/30/2017 DARNELL LAZCANO MD Ot Z68.32 BODY MASS INDEX (BMI) 32.0-32.9, ADULT 06/30/2017 DARNELL LAZCANO MD Ot Z79.899 OTHER [facility] (CURRENT) DRUG THERAPY 07/01/2017 DARNELL LAZCANO MD Ot C18.2 MALIGNANT NEOPLASM OF ASCENDING COLON 07/01/2017 DARNELL LAZCANO MD Ot E66.9 OBESITY, UNSPECIFIED 07/01/2017 DARNELL LAZCANO MD Ot I10 ESSENTIAL (PRIMARY) HYPERTENSION 07/01/2017 DARNELL LAZCANO MD Ot I48.0 PAROXYSMAL ATRIAL FIBRILLATION 07/01/2017 DARNELL LAZCANO MD Ot J45.909 UNSPECIFIED ASTHMA, UNCOMPLICATED 07/01/2017 DARNELL LAZCANO MD Ot R06.02 SHORTNESS OF BREATH 07/01/2017 DIANA LAZCANO MDNER Ot R53.83 OTHER FATIGUE 07/01/2017 DARNELL LAZCANO MD Ot Z68.32 BODY MASS INDEX (BMI) 32.0-32.9, ADULT 07/01/2017 NENO BRICENO PATRICK Ot Z79.899 OTHER BRIM CURLER (CURRENT) DRUG THERAPY 07/06/2017 Ot V76.12 OTH SCREEN MAMMO- MALIGN NEOPLASM OF [place] 07/06/2017 YORDAN RODRIGUEZ MD Ot V76.1 2 OTH SCREEN MAMMO-MALIGN NEOPLASM OF [place] 07/06/2017 YORDAN RODRIGUEZ MD Ot V76.1 2 OTH SCREEN MAMMO-MALIGN NEOPLASM OF [place] 07/06/2017 YORDAN RODRIGUEZ MD Ot R30.0 DYSURIA 07/06/2017 YORDAN RODRIGUEZ MD Ot R35.0 FREQUENCY OF MICTURITION 07/06/2017 YORDAN RODRIGUEZ MD Ot R05 COUGH 07/06/2017 YORDAN RODRIGUEZ MD Ot Z12.3 1 ENCNTR SCREEN MAMMOGRAM FOR MALIGNANT NE 07/06/2017 YORDAN RODRIGUEZ MD Ot Z12.3 1 ENCNTR SCREEN MAMMOGRAM FOR MALIGNANT NE 07/06/2017 YORDAN RODRIGUEZ MD Ot E04.2 NONTOXIC MULTINODULAR GOITER 07/06/2017 ANNELIESE CARMICHAEL DOG LICENSE OFFICER SUPERVISOR Ot 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 W/O MYELOPATHY OR RADICULOPA 07/06/2017 ANNELIESE CARMICHAEL DOG LICENSE OFFICER SUPERVISOR Ot S09.90XA UNSPECIFIED INJURY OF HEAD, INITIAL ENCO 07/06/2017 ANNELIESE CARMICHAEL APRN Ot W19.XXXA UNSPECIFIED FALL, INITIAL ENCOUNTER 07/06/2017 ANNELIESE CARMICHAEL APRN Ot Y92.009 [facility] [place] [address] IN [facility] [place] [facility] (PRIVATE 07/06/2017 ANNELIESE CARMICHAEL DOG LICENSE OFFICER SUPERVISOR Ot Y99.8 OTHER EXTERNAL CAUSE STATUS 07/06/2017 LIDA BRICENO FACC, ALI FACP CCDS Ot E66.09 OTHER OBESITY DUE TO EXCESS CALORIES 07/06/2017 LIDA BRICENO FACC, ALI FACP CCDS Ot I48.0 PAROXYSMAL ATRIAL FIBRILLATION 07/06/2017 LIDA BRICENO FACC, ALI FACP CCDS Ot R06.02 SHORTNESS OF BREATH 07/06/2017 LIDA BRICENO FACC, ALI FACP CCDS Ot R53.83 OTHER FATIGUE 07/06/2017 SUAD CASE MD Ot D64. 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, PART UNSP, W/O PERF 07/06/2017 YORDAN RODRIGUEZ MD Ot Z98.8 90 OTHER SPECIFIED POSTPROCEDURAL STATES 07/06/2017 DARNELL LAZCANO MD Ot C18.2 MALIGNANT NEOPLASM OF ASCENDING COLON 07/06/2017 DARNELL LAZCANO MD Ot E66.9 OBESITY, UNSPECIFIED 07/06/2017 DARNELL LAZCANO MD Ot I10 ESSENTIAL (PRIMARY) HYPERTENSION 07/06/2017 DARNELL LAZCANO MD Ot I48.0 PAROXYSMAL ATRIAL FIBRILLATION 07/06/2017 DARNELL LAZCANO MD Ot J45.909 UNSPECIFIED ASTHMA, UNCOMPLICATED 07/06/2017 DARNELL LAZCANO MD Ot R06.02 SHORTNESS OF BREATH 07/06/2017 DARNELL LAZCANO MD Ot R53.83 OTHER FATIGUE 07/06/2017 DARNELL LAZCANO MD Ot Z68.32 BODY MASS INDEX (BMI) 32.0-32.9, ADULT 07/06/2017 DARNELL LAZCANO MD Ot Z79.899 OTHER BRIM CURLER (CURRENT) DRUG THERAPY 07/07/2017 YORDAN RODRIGUEZ MD, Ot K43.9 VENTRAL HERNIA WITHOUT OBSTRUCTION OR GA 07/07/2017 YORDAN RODRIGUEZ MD, Ot 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, PART UNSP, W/O PERF 07/07/2017 YORDAN RODRIGUEZ MD Ot Z98.8 90 OTHER SPECIFIED POSTPROCEDURAL STATES 07/07/2017 ARIS TRINIDAD FURNITURE ASSEMBLY SUPERVISOR Ot E66.09 OTHER OBESITY DUE TO EXCESS CALORIES 07/07/2017 ARIS TRINIDAD L FURNITURE ASSEMBLY SUPERVISOR Ot I 10 ESSENTIAL (PRIMARY) HYPERTENSION 07/07/2017 ARIS TRINIDAD L FURNITURE ASSEMBLY SUPERVISOR Ot I48.0 PAROXYSMAL ATRIAL FIBRILLATION 07/07/2017 CLYDEMAARIS L FURNITURE ASSEMBLY SUPERVISOR Ot R06.02 SHORTNESS OF BREATH 07/07/2017 ARIS TRINIDAD FURNITURE ASSEMBLY SUPERVISOR Ot Z79.01 BRIM CURLER (CURRENT) USE OF ANTICOAGULANT 07/12/2017 STEPHANY ALY MD, Ot K43.2 INCISIONAL HERNIA WITHOUT OBSTRUCTION OR 07/12/2017 STEPHANY ALY MD, Ot K43.9 VENTRAL HERNIA WITHOUT OBSTRUCTION OR GA 07/12/2017 STEPHANY ALY MD Ot Z01.81 8 ENCOUNTER FOR OTHER PREPROCEDURAL EXAMIN 07/14/2017 YORDAN RODRIGUEZ MD Ot K43.9 VENTRAL HERNIA WITHOUT OBSTRUCTION OR GA 07/14/2017 YORDAN RODRIGUEZ MD, Ot 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, PART UNSP, W/O PERF 07/14/2017 YORDAN RODRIGUEZ MD Ot Z98.8 90 OTHER SPECIFIED POSTPROCEDURAL STATES 07/17/2017 STEPHANY ALY MD, Ot C18.2 MALIGNANT NEOPLASM OF ASCENDING COLON 07/17/2017 STEPHANY ALY MD Ot I10 ESSENTIAL (PRIMARY) HYPERTENSION 07/17/2017 STEPHANY ALY MD Ot I25.10 ATHSCL HEART DISEASE OF [place] CORONARY 07/17/2017 STEPHANY ALY MD Ot I48.91 UNSPECIFIED ATRIAL FIBRILLATION 07/17/2017 STEPHANY ALY MD Ot J45.90 9 UNSPECIFIED ASTHMA, UNCOMPLICATED 07/17/2017 STEPHANY ALY MD Ot K43.0 INCISIONAL HERNIA WITH OBSTRUCTION, WITH 07/17/2017 STEPHANY ALY MD Ot R11.0 NAUSEA 07/17/2017 STEPHANY ALY MD Ot Z79.01 [facility] (CURRENT) USE OF ANTICOAGULANT 07/17/2017 STEPHANY ALY MD Ot Z79.89 9 OTHER BRIM CURLER (CURRENT) DRUG THERAPY 07/17/2017 STEPHANY ALY MD Ot C18.2 MALIGNANT NEOPLASM OF ASCENDING COLON 07/17/2017 STEPHANY ALY MD Ot I10 ESSENTIAL (PRIMARY) HYPERTENSION 07/17/2017 TSEPHANY ALY MD Ot I25.10 ATHSCL HEART DISEASE OF [place] CORONARY 07/17/2017 STEPHANY ALY MD Ot I48.91 UNSPECIFIED ATRIAL FIBRILLATION 07/17/2017 STEPHANY ALY MD Ot J45.90 9 UNSPECIFIED ASTHMA, UNCOMPLICATED 07/17/2017 STEPHANY ALY MD Ot K43.0 INCISIONAL HERNIA WITH OBSTRUCTION, WITH 07/17/2017 STEPHANY ALY MD Ot R11.0 NAUSEA 07/17/2017 STEPHANY ALY MD Ot Z79.01 BRIM CURLER (CURRENT) USE OF ANTICOAGULANT 07/17/2017 STEPHANY ALY MD Ot Z79.89 9 OTHER BRIM [facility]ER (CURRENT) DRUG THERAPY 07/27/2017 BAIARIS WALKER FURNITURE ASSEMBLY SUPERVISOR Ot E66.09 OTHER OBESITY DUE TO EXCESS CALORIES 07/27/2017 BAIARIS WALKER L FURNITURE ASSEMBLY SUPERVISOR Ot I 10 ESSENTIAL (PRIMARY) HYPERTENSION 07/27/2017 BAIMAARIS L FURNITURE ASSEMBLY SUPERVISOR Ot I48.0 PAROXYSMAL ATRIAL FIBRILLATION 07/27/2017 BAIARIS WALKER L FURNITURE ASSEMBLY SUPERVISOR Ot R06.02 SHORTNESS OF BREATH 07/27/2017 BAIARIS WALKER L FURNITURE ASSEMBLY SUPERVISOR Ot Z79.01 BRIM CURLER (CURRENT) USE OF ANTICOAGULANT 08/04/2017 BAIMAMANUELARIS L FURNITURE ASSEMBLY SUPERVISOR Ot E66.09 OTHER OBESITY DUE TO EXCESS CALORIES 08/04/2017 BAIMAARIS L FURNITURE ASSEMBLY SUPERVISOR Ot I 10 ESSENTIAL (PRIMARY) HYPERTENSION 08/04/2017 BAIMAARIS L FURNITURE ASSEMBLY SUPERVISOR Ot I48.0 PAROXYSMAL ATRIAL FIBRILLATION 08/04/2017 BAIMAARIS L FURNITURE ASSEMBLY SUPERVISOR Ot R06.02 SHORTNESS OF BREATH 08/04/2017 BAIMAARIS L FURNITURE ASSEMBLY SUPERVISOR Ot Z79.01 BRIM CURLER (CURRENT) USE OF ANTICOAGULANT 09/28/2017 DARNELL LAZCANO MD Ot C18.2 MALIGNANT NEOPLASM OF ASCENDING COLON 09/28/2017 DARNELL LAZCANO MD Ot E66.9 OBESITY, UNSPECIFIED 09/28/2017 DARNELL LAZCANO MD Ot I10 ESSENTIAL (PRIMARY) HYPERTENSION 09/28/2017 DARNELL LAZCANO MD Ot I48.0 PAROXYSMAL ATRIAL FIBRILLATION 09/28/2017 DARNELL LAZCANO MD Ot J45.909 UNSPECIFIED ASTHMA, UNCOMPLICATED 09/28/2017 DARNELL LAZCANO MD Ot R06.02 SHORTNESS OF BREATH 09/28/2017 DARNELL LAZCANO MD Ot R53.83 OTHER FATIGUE 09/28/2017 DARNELL LAZCANO MD Ot Z68.32 BODY MASS INDEX (BMI) 32.0-32.9, ADULT 09/28/2017 DARNELL LAZCANO MD Ot Z79.899 OTHER BRIM [facility]ER (CURRENT) DRUG THERAPY 09/29/2017 YORDAN RODRIGUEZ MD Ot V76.1 2 OTH SCREEN MAMMO-MALIGN NEOPLASM OF [place] 09/29/2017 YORDAN RODRIGUEZ MD Ot V76.1 2 OTH SCREEN MAMMO-MALIGN NEOPLASM OF [place] 09/29/2017 YORDAN RODRIGUEZ MD Ot R30.0 DYSURIA 09/29/2017 YORDAN RODRIGUEZ MD Ot R35.0 FREQUENCY OF MICTURITION 09/29/2017 YORDAN RODRIGUEZ MD Ot R05 COUGH 09/29/2017 YORDAN RODRIGUEZ MD Ot Z12.3 1 ENCNTR SCREEN MAMMOGRAM FOR MALIGNANT NE 09/29/2017 YORDAN RODRIGUEZ MD Ot Z12.3 1 ENCNTR SCREEN MAMMOGRAM FOR MALIGNANT NE 09/29/2017 YORDAN RODRIGUEZ MD Ot E04.2 NONTOXIC MULTINODULAR GOITER 09/29/2017 ANNELIESE CARMICHAEL DOG LICENSE OFFICER SUPERVISOR Ot 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 W/O MYELOPATHY OR RADICULOPA 09/29/2017 ANNELIESE CARMICHAEL DOG LICENSE OFFICER SUPERVISOR Ot S09.90XA UNSPECIFIED INJURY OF HEAD, INITIAL ENCO 09/29/2017 ANNELIESE CARMICHAEL DOG LICENSE OFFICER SUPERVISOR Ot W19.XXXA UNSPECIFIED FALL, INITIAL ENCOUNTER 09/29/2017 ANNELIESE CARMICHAEL DOG LICENSE OFFICER SUPERVISOR Ot Y92.[address] IN [facility] [place] [facility] (PRIVATE 09/29/2017 ANNELIESE CARMICHAEL DOG LICENSE OFFICER SUPERVISOR Ot Y99.8 OTHER EXTERNAL CAUSE STATUS 09/29/2017 LIDA BRICENO FACC, ALI FACP CCDS Ot E66.09 OTHER OBESITY DUE TO EXCESS CALORIES 09/29/2017 LIDA BRICENO FACC, ALI FACP CCDS Ot I48.0 PAROXYSMAL ATRIAL FIBRILLATION 09/29/2017 LIDA BRICENO FACC, ALI FACP CCDS Ot R06.02 SHORTNESS OF BREATH 09/29/2017 LIDA BRICENO FACC, ALI FACP CCDS Ot R53.83 OTHER FATIGUE 09/29/2017 SUAD CASE MD Ot D64. 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, PART UNSP, W/O PERF 09/29/2017 YORDAN RODRIGUEZ MD Ot Z98.8 90 OTHER SPECIFIED POSTPROCEDURAL STATES 09/29/2017 AMOS ARIS Onofre FURNITURE ASSEMBLY SUPERVISOR Ot E66.09 OTHER OBESITY DUE TO EXCESS CALORIES 09/29/2017 CLYDEARIS WALKER L FURNITURE ASSEMBLY SUPERVISOR Ot I 10 ESSENTIAL (PRIMARY) HYPERTENSION 09/29/2017 CLYDEDENISE ARIS L FURNITURE ASSEMBLY SUPERVISOR Ot I48.0 PAROXYSMAL ATRIAL FIBRILLATION 09/29/2017 CLYDEDENISE ARIS L FURNITURE ASSEMBLY SUPERVISOR Ot R06.02 SHORTNESS OF BREATH 09/29/2017 AMOS RAIS Onofre FURNITURE ASSEMBLY SUPERVISOR Ot Z79.01 [facility] (CURRENT) USE OF ANTICOAGULANT 09/29/2017 DARNELL LAZCANO MD Ot C18.2 MALIGNANT NEOPLASM OF ASCENDING COLON 09/29/2017 DARNELL LAZCANO MD Ot E66.9 OBESITY, UNSPECIFIED 09/29/2017 DARNELL LAZCANO MD Ot I10 ESSENTIAL (PRIMARY) HYPERTENSION 09/29/2017 DARNELL LAZCANO MD Ot I48.0 PAROXYSMAL ATRIAL FIBRILLATION 09/29/2017 DARNELL LAZCANO MD Ot J45.909 UNSPECIFIED ASTHMA, UNCOMPLICATED 09/29/2017 DARNELL LAZCANO MD Ot R06.02 SHORTNESS OF BREATH 09/29/2017 DARNELL LAZCANO MD Ot R53.83 OTHER FATIGUE 09/29/2017 DARNELL LAZCANO MD Ot Z68.32 BODY MASS INDEX (BMI) 32.0-32.9, ADULT 09/29/2017 DARNELL LAZCANO MD Ot Z79.899 OTHER [facility] (CURRENT) DRUG THERAPY 09/30/2017 DARNELL LAZCANO MD Ot C18.2 MALIGNANT NEOPLASM OF ASCENDING COLON 09/30/2017 DARNELL LAZCANO MD Ot E66.9 OBESITY, UNSPECIFIED 09/30/2017 DARNELL LAZCANO MD Ot I10 ESSENTIAL (PRIMARY) HYPERTENSION 09/30/2017 DARNELL LAZCANO MD Ot I48.0 PAROXYSMAL ATRIAL FIBRILLATION 09/30/2017 DARNELL LAZCANO MD Ot J45.909 UNSPECIFIED ASTHMA, UNCOMPLICATED 09/30/2017 DARNELL LAZCANO MD Ot R06.02 SHORTNESS OF BREATH 09/30/2017 DARNELL LAZCANO MD Ot R53.83 OTHER FATIGUE 09/30/2017 DARNELL LAZCANO MD Ot Z68.32 BODY MASS INDEX (BMI) 32.0-32.9, ADULT 09/30/2017 DIANA LAZCANO MDNER Ot Z79.899 OTHER BRIM CURLER (CURRENT) DRUG THERAPY 10/05/2017 DARNELL LAZCANO MD Ot C18.2 MALIGNANT NEOPLASM OF ASCENDING COLON 10/05/2017 DARNELL LAZCANO MD Ot E66.9 OBESITY, UNSPECIFIED 10/05/2017 DARNLEL LAZCANO MD Ot I10 ESSENTIAL (PRIMARY) HYPERTENSION 10/05/2017 DIANA LAZCANO MDNER Ot I48.0 PAROXYSMAL ATRIAL FIBRILLATION 10/05/2017 DIANA LAZCANO MDNER Ot J45.909 UNSPECIFIED ASTHMA, UNCOMPLICATED 10/05/2017 DIANA LAZCANO MDNER Ot R06.02 SHORTNESS OF BREATH 10/05/2017 DIANA LAZCANO MDNER Ot R53.83 OTHER FATIGUE 10/05/2017 DARNELL LAZCANO MD Ot Z68.32 BODY MASS INDEX (BMI) 32.0-32.9, ADULT 10/05/2017 DIANA LAZCANO MDNER Ot Z79.899 OTHER BRIM CURLER (CURRENT) DRUG THERAPY 10/26/2017 DARNELL LAZCANO MD Ot C18.2 MALIGNANT NEOPLASM OF ASCENDING COLON 10/26/2017 DARNELL LAZCANO MD Ot E66.9 OBESITY, UNSPECIFIED 10/26/2017 DIANA LAZCANO MDNER Ot I10 ESSENTIAL (PRIMARY) HYPERTENSION 10/26/2017 DIANA LAZCANO MDNER Ot I48.0 PAROXYSMAL ATRIAL FIBRILLATION 10/26/2017 DIANA LAZCANO MDNER Ot J45.909 UNSPECIFIED ASTHMA, UNCOMPLICATED 10/26/2017 DIANA LAZCANO MDNER Ot R06.02 SHORTNESS OF BREATH 10/26/2017 DIANA LAZCANO MDNER Ot R53.83 OTHER FATIGUE 10/26/2017 DARNELL LAZCANO MD Ot Z68.32 BODY MASS INDEX (BMI) 32.0-32.9, ADULT 10/26/2017 DIANA LAZCANO MDNER Ot Z79.899 OTHER [facility] (CURRENT) DRUG THERAPY 11/05/2017 DARNELL LAZCANO MD Ot C18.2 MALIGNANT NEOPLASM OF ASCENDING COLON 11/05/2017 DIANA LAZCANO MDNER Ot E66.9 OBESITY, UNSPECIFIED 11/05/2017 DIANA LAZCANO MDNER Ot I10 ESSENTIAL (PRIMARY) HYPERTENSION 11/05/2017 DIANA LAZCANO MDNER Ot I48.0 PAROXYSMAL ATRIAL FIBRILLATION 11/05/2017 DIANA LAZCANO MDNER Ot J45.909 UNSPECIFIED ASTHMA, UNCOMPLICATED 11/05/2017 DARNELL LAZCANO MD Ot R06.02 SHORTNESS OF BREATH 11/05/2017 DARNELL LAZCANO MD Ot R53.83 OTHER FATIGUE 11/05/2017 DARNELL LAZCANO MD Ot Z68.32 BODY MASS INDEX (BMI) 32.0-32.9, ADULT 11/05/2017 DARNELL LAZCANO MD Ot Z79.899 OTHER [facility] (CURRENT) DRUG THERAPY 01/20/2018 STEPHANY ALY MD Ot Z01.81 8 ENCOUNTER FOR OTHER PREPROCEDURAL EXAMIN 01/25/2018 STEPHANY ALY MD, Ot Z01.81 8 ENCOUNTER FOR OTHER PREPROCEDURAL EXAMIN 01/25/2018 STEPHANY ALY MD, Ot Z01.81 8 ENCOUNTER FOR OTHER PREPROCEDURAL EXAMIN 01/26/2018 STEPHANY ALY MD, Ot I10 ESSENTIAL (PRIMARY) HYPERTENSION 01/26/2018 STEPHANY ALY MD Ot I25.10 ATHSCL HEART DISEASE OF [place] CORONARY 01/26/2018 STEPHANY ALY MD, Ot J45.90 9 UNSPECIFIED ASTHMA, UNCOMPLICATED 01/26/2018 STEPHANY ALY MD Ot K57.30 DVRTCLOS OF LG INT W/O PERFORATION OR AB 01/26/2018 STEPHANY ALY MD, Ot K64.1 SECOND DEGREE HEMORRHOIDS 01/26/2018 STEPHANY ALY MD Ot L82.1 OTHER SEBORRHEIC KERATOSIS 01/26/2018 STEPHANY ALY MD, Ot Z09 ENCNTR FOR F/U EXAM AFT TRTMT FOR COND O 01/26/2018 STEPHANY ALY MD, Ot Z79.01 [facility] (CURRENT) USE OF ANTICOAGULANT 01/26/2018 STEPHANY ALY MD, Ot Z79.89 9 OTHER [facility] (CURRENT) DRUG THERAPY 01/26/2018 STEPHANY ALY MD, Ot Z85.03 8 PERSONAL HISTORY OF MALIGNANT NEOPLASM O 01/26/2018 STEPHANY ALY MD Ot Z88.0 ALLERGY STATUS TO PENICILLIN 01/26/2018 STEPHANY ALY MD, Ot Z88.2 ALLERGY STATUS TO SULFONAMIDES STATUS 02/01/2018 STEPHANY ALY MD Ot I10 ESSENTIAL (PRIMARY) HYPERTENSION 02/01/2018 STEPHANY ALY MD, Ot I25.10 ATHSCL HEART DISEASE OF [place] CORONARY 02/01/2018 STEPHANY ALY MD Ot J45.90 9 UNSPECIFIED ASTHMA, UNCOMPLICATED 02/01/2018 STEPHANY ALY MD, Ot K57.30 DVRTCLOS OF LG INT W/O PERFORATION OR AB 02/01/2018 STEPHANY ALY MD Ot K64.1 SECOND DEGREE HEMORRHOIDS 02/01/2018 STEPHANY ALY MD Ot L82.1 OTHER SEBORRHEIC KERATOSIS 02/01/2018 STEPHANY ALY MD Ot Z09 ENCNTR FOR F/U EXAM AFT TRTMT FOR COND O 02/01/2018 STEPHANY ALY MD, Ot Z79.01 BRIM CURLER (CURRENT) USE OF ANTICOAGULANT 02/01/2018 STEPHANY ALY MD Ot Z79.89 9 OTHER [facility] (CURRENT) DRUG THERAPY 02/01/2018 STEPHANY AYL MD Ot Z85.03 8 PERSONAL HISTORY OF MALIGNANT NEOPLASM O 02/01/2018 STEPHANY ALY MD Ot Z88.0 ALLERGY STATUS TO PENICILLIN 02/01/2018 STEPHANY ALY MD Ot Z88.2 ALLERGY STATUS TO SULFONAMIDES STATUS 02/03/2018 STEPHANY ALY MD Ot I10 ESSENTIAL (PRIMARY) HYPERTENSION 02/03/2018 STEPHANY ALY MD, Ot I25.10 ATHSCL HEART DISEASE OF [place] CORONARY 02/03/2018 STEPHANY ALY MD, Ot J45.90 9 UNSPECIFIED ASTHMA, UNCOMPLICATED 02/03/2018 STEPHANY ALY MD Ot K57.30 DVRTCLOS OF LG INT W/O PERFORATION OR AB 02/03/2018 STEPHANY ALY MD Ot K64.1 SECOND DEGREE HEMORRHOIDS 02/03/2018 STEPHANY ALY MD Ot L82.1 OTHER SEBORRHEIC KERATOSIS 02/03/2018 STEPHANY ALY MD Ot Z09 ENCNTR FOR F/U EXAM AFT TRTMT FOR COND O 02/03/2018 STEPHANY ALY MD Ot Z79.01 [facility] (CURRENT) USE OF ANTICOAGULANT 02/03/2018 STEPHANY ALY MD Ot Z79.89 9 OTHER [facility] (CURRENT) DRUG THERAPY 02/03/2018 STEPHANY ALY MD Ot Z85.03 8 PERSONAL HISTORY OF MALIGNANT NEOPLASM O 02/03/2018 STEPHANY ALY MD Ot Z88.0 ALLERGY STATUS TO PENICILLIN 02/03/2018 STEPHANY ALY MD Ot Z88.2 ALLERGY STATUS TO SULFONAMIDES STATUS 02/18/2018 ANNELIESE CARMICHAEL APRN Ot Z12.31 ENCNTR SCREEN MAMMOGRAM FOR MALIGNANT NE 02/22/2018 ANNELIESE CARMICHAEL APRN Ot Z12.31 ENCNTR SCREEN MAMMOGRAM FOR MALIGNANT NE 03/04/2018 DARNELL LAZCANO MD Ot C18.2 MALIGNANT NEOPLASM OF ASCENDING COLON 03/04/2018 DARNELL LAZCANO MD Ot E66.9 OBESITY, UNSPECIFIED 03/04/2018 DARNELL LAZCANO MD Ot I10 ESSENTIAL (PRIMARY) HYPERTENSION 03/04/2018 DARNELL LAZCANO MD Ot I48.0 PAROXYSMAL ATRIAL FIBRILLATION 03/04/2018 DARNELL LAZCANO MD Ot J45.909 UNSPECIFIED ASTHMA, UNCOMPLICATED 03/04/2018 DARNELL LAZCANO MD Ot R06.02 SHORTNESS OF BREATH 03/04/2018 DARNELL LAZCANO MD Ot R53.83 OTHER FATIGUE 03/04/2018 DARNELL LAZCANO MD Ot Z68.32 BODY MASS INDEX (BMI) 32.0-32.9, ADULT 03/04/2018 DARNELL LAZCANO MD Ot Z79.899 OTHER BRIM CURLER (CURRENT) DRUG THERAPY 03/11/2018 DARNELL LAZCANO MD Ot C18.2 MALIGNANT NEOPLASM OF ASCENDING COLON 03/11/2018 DARNELL LAZCANO MD Ot E66.9 OBESITY, UNSPECIFIED 03/11/2018 DARNELL LAZCANO MD Ot I10 ESSENTIAL (PRIMARY) HYPERTENSION 03/11/2018 DARNELL LAZCANO MD Ot I48.0 PAROXYSMAL ATRIAL FIBRILLATION 03/11/2018 DARNELL LAZCANO MD Ot J45.909 UNSPECIFIED ASTHMA, UNCOMPLICATED 03/11/2018 DARNELL LAZCANO MD Ot R06.02 SHORTNESS OF BREATH 03/11/2018 DIANA LAZCANO MDNER Ot R53.83 OTHER FATIGUE 03/11/2018 DARNELL LAZCANO MD Ot Z68.32 BODY MASS INDEX (BMI) 32.0-32.9, ADULT 03/11/2018 DARNELL LAZCANO MD Ot Z79.899 OTHER [facility]ER (CURRENT) DRUG THERAPY 03/16/2018 ANNELIESE CARMICHAEL DOG LICENSE OFFICER SUPERVISOR Ot Z12.31 ENCNTR SCREEN MAMMOGRAM FOR MALIGNANT NE 04/12/2018 DARNELL LAZCANO MD Ot C18.2 MALIGNANT NEOPLASM OF ASCENDING COLON 04/12/2018 DARNELL LAZCANO MD Ot E66.9 OBESITY, UNSPECIFIED 04/12/2018 DARNELL LAZCANO MD Ot I10 ESSENTIAL (PRIMARY) HYPERTENSION 04/12/2018 DARNELL LAZCANO MD Ot I48.0 PAROXYSMAL ATRIAL FIBRILLATION 04/12/2018 DARNELL LAZCANO MD Ot J45.909 UNSPECIFIED ASTHMA, UNCOMPLICATED 04/12/2018 DARNELL LAZCANO MD Ot R06.02 SHORTNESS OF BREATH 04/12/2018 DIANA LAZCANO MDNER Ot R53.83 OTHER FATIGUE 04/12/2018 DARNELL LAZCANO MD Ot Z68.32 BODY MASS INDEX (BMI) 32.0-32.9, ADULT 04/12/2018 DARNELL LAZCANO MD Ot Z79.899 OTHER BRIM CURLER (CURRENT) DRUG THERAPY 04/13/2018 DARNELL LAZCANO MD Ot C18.2 MALIGNANT NEOPLASM OF ASCENDING COLON 04/13/2018 DARNELL LAZCANO MD Ot E66.9 OBESITY, UNSPECIFIED 04/13/2018 DARNELL LAZCANO MD Ot I10 ESSENTIAL (PRIMARY) HYPERTENSION 04/13/2018 DARNELL LAZCANO MD Ot I48.0 PAROXYSMAL ATRIAL FIBRILLATION 04/13/2018 DARNELL LAZCANO MD Ot J45.909 UNSPECIFIED ASTHMA, UNCOMPLICATED 04/13/2018 DARNELL LAZCANO MD Ot R06.02 SHORTNESS OF BREATH 04/13/2018 DIANA LAZCANO MDNER Ot R53.83 OTHER FATIGUE 04/13/2018 DARNELL LAZCANO MD Ot Z68.32 BODY MASS INDEX (BMI) 32.0-32.9, ADULT 04/13/2018 DARNELL LAZCANO MD Ot Z79.899 OTHER [facility] (CURRENT) DRUG THERAPY 04/18/2018 DARNELL LAZCANO MD Ot C18.2 MALIGNANT NEOPLASM OF ASCENDING COLON 04/18/2018 DARNELL LAZCANO MD Ot E66.9 OBESITY, UNSPECIFIED 04/18/2018 DIANA LAZCANO MDNER Ot I10 ESSENTIAL (PRIMARY) HYPERTENSION 04/18/2018 DIANA LAZCANO MDNER Ot I48.0 PAROXYSMAL ATRIAL FIBRILLATION 04/18/2018 DARNELL LAZCANO MD Ot J45.909 UNSPECIFIED ASTHMA, UNCOMPLICATED 04/18/2018 DIANA LAZCANO MDNER Ot R06.02 SHORTNESS OF BREATH 04/18/2018 DIANA LAZCANO MDNER Ot R53.83 OTHER FATIGUE 04/18/2018 DARNELL LAZCANO MD Ot Z68.32 BODY MASS INDEX (BMI) 32.0-32.9, ADULT 04/18/2018 DARNELL LAZCANO MD Ot Z79.899 OTHER [facility] (CURRENT) DRUG THERAPY 05/12/2018 DARNELL LAZCANO MD Ot C18.2 MALIGNANT NEOPLASM OF ASCENDING COLON 05/12/2018 DARNELL LAZCANO MD Ot E66.9 OBESITY, UNSPECIFIED 05/12/2018 DARNELL LAZCANO MD Ot I10 ESSENTIAL (PRIMARY) HYPERTENSION 05/12/2018 DARNELL LAZCANO MD Ot I48.0 PAROXYSMAL ATRIAL FIBRILLATION 05/12/2018 DARNELL LAZCANO MD Ot J45.909 UNSPECIFIED ASTHMA, UNCOMPLICATED 05/12/2018 DARNELL LAZCANO MD Ot R06.02 SHORTNESS OF BREATH 05/12/2018 DARNELL LAZCANO MD Ot R53.83 OTHER FATIGUE 05/12/2018 DARNELL LAZCANO MD Ot Z68.32 BODY MASS INDEX (BMI) 32.0-32.9, ADULT 05/12/2018 DARNELL LAZCANO MD Ot Z79.899 OTHER [facility] (CURRENT) DRUG THERAPY 06/07/2018 FELTON LESLIE MD, Ot D64.9 ANEMIA, UNSPECIFIED 06/07/2018 FELTON LESLIE MD Ot I10 ESSENTIAL (PRIMARY) HYPERTENSION 06/07/2018 FELTON LESLIE MD Ot I48.91 UNSPECIFIED ATRIAL FIBRILLATION 06/07/2018 FELTON LESLIE MD, Ot J45.909 UNSPECIFIED ASTHMA, UNCOMPLICATED 06/07/2018 FELTON LESLIE MD Ot S09.90XA UNSPECIFIED INJURY OF HEAD, INITIAL ENCO 06/07/2018 FELTON LESLIE MD Ot W01.198A FALL SAME LEV FROM SLIP/TRIP W STRIKE AG 06/07/2018 FELTON LESLIE MD Ot Y92.[address] IN [facility] [place] NON-INSTIT[facility] (PRIVATE) 06/07/2018 FELTON LESLIE MD, Ot Z79.01 [facility] (CURRENT) USE OF ANTICOAGULANT 06/07/2018 FELTON LESLIE MD Ot Z82.49 FAMILY HX OF ISCHEM HEART DIS AND OTH DI 06/07/2018 FELTON LESLIE MD, Ot Z85.038 PERSONAL HISTORY OF MALIGNANT NEOPLASM O 06/07/2018 FELTON LESLIE MD Ot Z87.19 PERSONAL HISTORY OF OTHER DISEASES OF TH 06/07/2018 FELTON LESLIE MD Ot Z88.0 ALLERGY STATUS TO PENICILLIN 06/07/2018 FELTON LESLIE MD, Ot Z88.2 ALLERGY STATUS TO SULFONAMIDES STATUS 06/07/2018 FELTON LESLIE MD Ot Z88.8 ALLERGY STATUS TO OTH DRUG/MEDS/BIOL SUB 06/07/2018 FELTON LESLIE MD Ot Z90.89 ACQUIRED ABSENCE OF OTHER ORGANS 06/07/2018 FELTON LESLIE MD, Ot Z91.041 RADIOGRAPHIC DYE ALLERGY STATUS 06/07/2018 FELTON LESLIE MD Ot Z98.890 OTHER SPECIFIED POSTPROCEDURAL STATES 06/10/2018 FELTON LESLIE MD, Ot D64.9 ANEMIA, UNSPECIFIED 06/10/2018 FELTON LESLIE MD Ot I10 ESSENTIAL (PRIMARY) HYPERTENSION 06/10/2018 FELTON LESLIE MD Ot I48.91 UNSPECIFIED ATRIAL FIBRILLATION 06/10/2018 FELTON ELSLIE MD Ot J45.909 UNSPECIFIED ASTHMA, UNCOMPLICATED 06/10/2018 FELTON LESLIE MD Ot S09.90XA UNSPECIFIED INJURY OF HEAD, INITIAL ENCO 06/10/2018 FELTON LESLIE MD Ot W01.198A FALL SAME LEV FROM SLIP/TRIP W STRIKE AG 06/10/2018 FELTON LESLIE MD Ot Y92.[address] IN [facility] [place] NON[facility] (PRIVATE) 06/10/2018 FELTON LESLIE MD Ot Z79.01 BRIM CURLER (CURRENT) USE OF ANTICOAGULANT 06/10/2018 FELTON LESLIE MD Ot Z82.49 FAMILY HX OF ISCHEM HEART DIS AND OTH DI 06/10/2018 FELTON LESLIE MD Ot Z85.038 PERSONAL HISTORY OF MALIGNANT NEOPLASM O 06/10/2018 FELTON LESLIE MD Ot Z87.19 PERSONAL HISTORY OF OTHER DISEASES OF 06/10/2018 FELTON LESLIE MD Ot Z88.0 ALLERGY STATUS TO PENICILLIN 06/10/2018 FELTON LESLIE MD, Ot Z88.2 ALLERGY STATUS TO SULFONAMIDES STATUS 06/10/2018 FELTON LESLIE MD Ot Z88.8 ALLERGY STATUS TO OTH DRUG/MEDS/BIOL SUB 06/10/2018 FELTON LESLIE MD Ot Z90.89 ACQUIRED ABSENCE OF OTHER ORGANS 06/10/2018 FELTON LESLIE MD Ot Z91.041 RADIOGRAPHIC DYE ALLERGY STATUS 06/10/2018 FELTON LESILE MD Ot Z98.890 OTHER SPECIFIED POSTPROCEDURAL STATES 06/29/2018 DARNELL LAZCANO MD Ot C18.2 MALIGNANT NEOPLASM OF ASCENDING COLON 06/29/2018 DARNELL LAZCANO MD Ot E66.9 OBESITY, UNSPECIFIED 06/29/2018 DARNELL LAZCANO MD Ot I10 ESSENTIAL (PRIMARY) HYPERTENSION 06/29/2018 DARNELL LAZCANO MD Ot I48.0 PAROXYSMAL ATRIAL FIBRILLATION 06/29/2018 DARNELL LAZCANO MD Ot J45.909 UNSPECIFIED ASTHMA, UNCOMPLICATED 06/29/2018 DARNELL LAZCANO MD Ot R06.02 SHORTNESS OF BREATH 06/29/2018 DARNELL LAZCANO MD Ot R53.83 OTHER FATIGUE 06/29/2018 DARNELL LAZCAON MD Ot Z68.32 BODY MASS INDEX (BMI) 32.0-32.9, ADULT 06/29/2018 DARNELL LAZCANO MD Ot Z79.899 OTHER [facility] (CURRENT) DRUG THERAPY 07/07/2018 DARNELL LAZCANO MD Ot C18.2 MALIGNANT NEOPLASM OF ASCENDING COLON 07/07/2018 DARNELL LAZCANO MD Ot E66.9 OBESITY, UNSPECIFIED 07/07/2018 DARNELL LAZCANO MD Ot I10 ESSENTIAL (PRIMARY) HYPERTENSION 07/07/2018 DARNELL LAZCANO MD Ot I48.0 PAROXYSMAL ATRIAL FIBRILLATION 07/07/2018 DARNELL LAZCANO MD Ot J45.909 UNSPECIFIED ASTHMA, UNCOMPLICATED 07/07/2018 DARNELL LAZCANO MD Ot R06.02 SHORTNESS OF BREATH 07/07/2018 DARNELL LAZCANO MD Ot R53.83 OTHER FATIGUE 07/07/2018 DARNELL LAZCANO MD Ot Z68.32 BODY MASS INDEX (BMI) 32.0-32.9, ADULT 07/07/2018 DARNELL LAZCANO MD Ot Z79.899 OTHER BRIM CURLER (CURRENT) DRUG THERAPY 08/02/2018 LIDA BRICENO FACC, ALI FACP CCDS Ot I10 ESSENTIAL (PRIMARY) HYPERTENSION 08/02/2018 LIDA BRICENO FACC, ALI FACP CCDS Ot I48.0 PAROXYSMAL ATRIAL FIBRILLATION 08/02/2018 LIDA BRICENO FACC, ALI FACP CCDS Ot J45.909 UNSPECIFIED ASTHMA, UNCOMPLICATED 08/02/2018 LIDA BRICENO FACC, ALI FACP CCDS Ot R55 SYNCOPE AND COLLAPSE 08/02/2018 LIDA BRICENO FACC, ALI FACP CCDS Ot Z79.01 BRIM CURLER (CURRENT) USE OF ANTICOAGULANT 08/02/2018 LIDA BRICENO FACC, ALI FACP CCDS Ot Z79.899 OTHER [facility] (CURRENT) DRUG THERAPY 08/04/2018 LIDA BRICENO FACC, ALI FACP CCDS Ot I10 ESSENTIAL (PRIMARY) HYPERTENSION 08/04/2018 LIDA BRICENO FACC, ALI FACP CCDS Ot I48.0 PAROXYSMAL ATRIAL FIBRILLATION 08/04/2018 LIDA BRICENO FACC, ALI FACP CCDS Ot J45.909 UNSPECIFIED ASTHMA, UNCOMPLICATED 08/04/2018 LIDA BRICENO FACC, ALI FACP CCDS Ot R55 SYNCOPE AND COLLAPSE 08/04/2018 LIDA BRICENO FACC, ALI FACP CCDS Ot Z79.01 BRIM CURLER (CURRENT) USE OF ANTICOAGULANT 08/04/2018 LIDA BRICENO FACC, ALI FACP CCDS Ot Z79.899 OTHER [facility] (CURRENT) DRUG THERAPY 08/09/2018 DARNELL LAZCANO MD Ot C18.2 MALIGNANT NEOPLASM OF ASCENDING COLON 08/09/2018 DARNELL LAZCANO MD Ot E66.9 OBESITY, UNSPECIFIED 08/09/2018 DARNELL LAZCANO MD Ot I10 ESSENTIAL (PRIMARY) HYPERTENSION 08/09/2018 DARNELL LAZCANO MD Ot I48.0 PAROXYSMAL ATRIAL FIBRILLATION 08/09/2018 DARNELL LAZCANO MD Ot J45.909 UNSPECIFIED ASTHMA, UNCOMPLICATED 08/09/2018 DARNELL LAZCANO MD Ot R06.02 SHORTNESS OF BREATH 08/09/2018 DARNELL LAZCANO MD Ot R53.83 OTHER FATIGUE 08/09/2018 DARNELL LAZCANO MD Ot Z68.32 BODY MASS INDEX (BMI) 32.0-32.9, ADULT 08/09/2018 DARNELL LAZCANO MD Ot Z79.899 OTHER [facility] (CURRENT) DRUG THERAPY 08/12/2018 DARNELL LAZCANO MD Ot C18.2 MALIGNANT NEOPLASM OF ASCENDING COLON 08/12/2018 DARNELL LAZCANO MD Ot E66.9 OBESITY, UNSPECIFIED 08/12/2018 DIANA LAZCANO MDNER Ot I10 ESSENTIAL (PRIMARY) HYPERTENSION 08/12/2018 DIANA LAZCANO MDNER Ot I48.0 PAROXYSMAL ATRIAL FIBRILLATION 08/12/2018 DARNELL LAZCANO MD Ot J45.909 UNSPECIFIED ASTHMA, UNCOMPLICATED 08/12/2018 DIANA LAZCANO MDNER Ot R06.02 SHORTNESS OF BREATH 08/12/2018 DIANA LAZCANO MDNER Ot R53.83 OTHER FATIGUE 08/12/2018 DARNELL LAZCANO MD Ot Z68.32 BODY MASS INDEX (BMI) 32.0-32.9, ADULT 08/12/2018 DIANA LAZCANO MDNER Ot Z79.899 OTHER BRIM CURLER (CURRENT) DRUG THERAPY 10/27/2018 DARNELL LAZCANO MD Ot C18.2 MALIGNANT NEOPLASM OF ASCENDING COLON 10/27/2018 DARNELL LAZCANO MD Ot E66.9 OBESITY, UNSPECIFIED 10/27/2018 DARNELL LAZCANO MD Ot I10 ESSENTIAL (PRIMARY) HYPERTENSION 10/27/2018 DIANA LAZCANO MDNER Ot I48.0 PAROXYSMAL ATRIAL FIBRILLATION 10/27/2018 DARNELL LAZCANO MD Ot J45.909 UNSPECIFIED ASTHMA, UNCOMPLICATED 10/27/2018 DIANA LAZCANO MDNER Ot R06.02 SHORTNESS OF BREATH 10/27/2018 DIANA LAZCANO MDNER Ot R53.83 OTHER FATIGUE 10/27/2018 DARNELL LAZCANO MD Ot Z68.32 BODY MASS INDEX (BMI) 32.0-32.9, ADULT 10/27/2018 DIANA LAZCANO MDNER Ot Z79.899 OTHER BRIM CURLER (CURRENT) DRUG THERAPY 12/13/2018 DARNELL LAZCANO MD Ot C18.2 MALIGNANT NEOPLASM OF ASCENDING COLON 12/13/2018 DARNELL LAZCANO MD Ot E66.9 OBESITY, UNSPECIFIED 12/13/2018 DIANA LAZCANO MDNER Ot I10 ESSENTIAL (PRIMARY) HYPERTENSION 12/13/2018 DIANA LAZCANO MDNER Ot I48.0 PAROXYSMAL ATRIAL FIBRILLATION 12/13/2018 DIANA LAZCANO MDNER Ot J45.909 UNSPECIFIED ASTHMA, UNCOMPLICATED 12/13/2018 NENO BRICENO PATRICK Ot R06.02 SHORTNESS OF BREATH 12/13/2018 NENO BRICENO PATRICK Ot R53.83 OTHER FATIGUE 12/13/2018 DARNELL LAZCANO MD Ot Z68.32 BODY MASS INDEX (BMI) 32.0-32.9, ADULT 12/13/2018 DARNELL LAZCANO MD Ot Z79.899 OTHER BRIM CURLER (CURRENT) DRUG THERAPY 12/14/2018 DARNELL LAZCANO MD Ot C18.2 MALIGNANT NEOPLASM OF ASCENDING COLON 12/14/2018 DARNELL LAZCANO MD Ot E66.9 OBESITY, UNSPECIFIED 12/14/2018 DARNELL LAZCANO MD Ot I10 ESSENTIAL (PRIMARY) HYPERTENSION 12/14/2018 DARNELL LAZCANO MD Ot I48.0 PAROXYSMAL ATRIAL FIBRILLATION 12/14/2018 DARNELL LAZCANO MD Ot J45.909 UNSPECIFIED ASTHMA, UNCOMPLICATED 12/14/2018 DARNELL LAZCANO MD Ot R06.02 SHORTNESS OF BREATH 12/14/2018 DIANA LAZCANO MDNER Ot R53.83 OTHER FATIGUE 12/14/2018 DARNELL LAZCANO MD Ot Z68.32 BODY MASS INDEX (BMI) 32.0-32.9, ADULT 12/14/2018 DARNELL LAZCANO MD Ot Z79.899 OTHER [facility] (CURRENT) DRUG THERAPY 01/25/2019 DARNELL LAZCANO MD Ot C18.2 MALIGNANT NEOPLASM OF ASCENDING COLON 01/25/2019 DARNELL LAZCANO MD Ot E66.9 OBESITY, UNSPECIFIED 01/25/2019 DARNELL LAZCANO MD Ot I10 ESSENTIAL (PRIMARY) HYPERTENSION 01/25/2019 DARNELL LAZCANO MD Ot I48.0 PAROXYSMAL ATRIAL FIBRILLATION 01/25/2019 DARNELL LAZCANO MD Ot J45.909 UNSPECIFIED ASTHMA, UNCOMPLICATED 01/25/2019 DIANA LAZCANO MDNER Ot R06.02 SHORTNESS OF BREATH 01/25/2019 DIANA LAZCANO MDNER Ot R53.83 OTHER FATIGUE 01/25/2019 DARNELL LAZCANO MD Ot Z68.32 BODY MASS INDEX (BMI) 32.0-32.9, ADULT 01/25/2019 DARNELL LAZCANO MD Ot Z79.899 OTHER [facility] (CURRENT) DRUG THERAPY 01/25/2019 STEPHANY ALY MD Ot Z01.81 8 ENCOUNTER FOR OTHER PREPROCEDURAL EXAMIN 02/06/2019 STEPHANY ALY MD Ot E86.9 VOLUME DEPLETION, UNSPECIFIED 02/06/2019 STEPHANY ALY MD Ot I10 ESSENTIAL (PRIMARY) HYPERTENSION 02/06/2019 STEPHANY ALY MD Ot I48.0 PAROXYSMAL ATRIAL FIBRILLATION 02/06/2019 STEPHANY ALY MD Ot J44.9 CHRONIC OBSTRUCTIVE PULMONARY DISEASE, U 02/06/2019 STEPHANY ALY MD, Ot J45.90 9 UNSPECIFIED ASTHMA, UNCOMPLICATED 02/06/2019 STEPHANY ALY MD, Ot 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 91 UNSPECIFIED ATRIAL FIBRILLATION 02/10/2019 PONCHO CHRISTOPHER MD, Ot J45.909 UNSPECIFIED ASTHMA, UNCOMPLICATED 02/10/2019 PONCHO CHRISTOPHER MD, Ot K59. 09 OTHER CONSTIPATION 02/10/2019 PONCHO CHRISTOPHER MD, Ot M19. 90 UNSPECIFIED OSTEOARTHRITIS, UNSPECIFIED 02/10/2019 PONCHO CHRISTOPHER MD, Ot R53. 1 WEAKNESS 02/10/2019 PONCHO CHRISTOPHER MD, Ot Z79. 01 [facility]PC (CURRENT) USE OF ANTICOAGULANT 02/10/2019 PONCHO CHRISTOPHER MD, Ot Z79.891 [facility] (CURRENT) USE OF OPIATE ANALGE 02/10/2019 PONCHO CHRISTOPHER MD, Ot Z79.899 OTHER [facility] (CURRENT) DRUG THERAPY 02/10/2019 PONCHO CHRISTOPHER MD, Ot Z82. 49 FAMILY HX OF ISCHEM HEART DIS AND OTH DI 02/10/2019 PONCHO CHRISTOPHER MD, Ot Z88. 0 ALLERGY STATUS TO PENICILLIN 02/10/2019 PONCHO CHRISTOPHER MD, Ot Z88. 1 ALLERGY STATUS TO OTHER ANTIBIOTIC AGENT 02/10/2019 PONCHO CHRISTOPHER MD, Ot Z88. 2 ALLERGY STATUS TO SULFONAMIDES STATUS 02/10/2019 PONCHO CHRISTOPHER MD, Ot Z88. 8 ALLERGY STATUS TO OTH DRUG/MEDS/BIOL SUB 02/10/2019 ASHWIN MD, PONCHO M Ot I10 ESSENTIAL (PRIMARY) HYPERTENSION 02/10/2019 PONCHO CHRISTOPHER MD Ot I48. 91 UNSPECIFIED ATRIAL FIBRILLATION 02/10/2019 PONCHO CHRISTOPHER MD Ot J45.909 UNSPECIFIED ASTHMA, UNCOMPLICATED 02/10/2019 PONCHO CHRISTOPHER MD Ot K59. 09 OTHER CONSTIPATION 02/10/2019 PONCHO CHRISTOPHER MD, Ot M19. 90 UNSPECIFIED OSTEOARTHRITIS, UNSPECIFIED 02/10/2019 PONCHO CHRISTOPHER MD Ot R53. 1 WEAKNESS 02/10/2019 PONCHO CHRISTOPHER MD, Ot Z79. 01 [facility]PC (CURRENT) USE OF ANTICOAGULANT 02/10/2019 PONCHO CHRISTOPHER MD Ot Z79.891 [facility] (CURRENT) USE OF OPIATE ANALGE 02/10/2019 PONCHO CHRISTOPHER MD, Ot Z79.899 OTHER BRIM CURLER (CURRENT) DRUG THERAPY 02/10/2019 PONCHO CHRISTOPHER MD Ot Z82. 49 FAMILY HX OF ISCHEM HEART DIS AND OTH DI 02/10/2019 PONCHO CHRISTOPHER MD Ot Z88. 0 ALLERGY STATUS TO PENICILLIN 02/10/2019 PONCHO CHRISTOPHER MD Ot Z88. 1 ALLERGY STATUS TO OTHER ANTIBIOTIC AGENT 02/10/2019 PONCHO CHRISTOPHER MD Ot Z88. 2 ALLERGY STATUS TO SULFONAMIDES STATUS 02/10/2019 PONCHO CHRISTOPHER MD Ot Z88. 8 ALLERGY STATUS TO OT DRUG/MEDS/BIOL SUB 02/16/2019 NICHELLE LR DO Ot D64.9 ANEMIA, UNSPECIFIED 02/16/2019 NICHELLE LR DO Ot H91.93 UNSPECIFIED HEARING LOSS, BILATERAL 02/16/2019 NICHELLE LR DO Ot I10 ESSENTIAL (PRIMARY) HYPERTENSION 02/16/2019 NICHELLE LR DO Ot I48.0 PAROXYSMAL ATRIAL FIBRILLATION 02/16/2019 NICHELLE LR DO Ot J44.9 CHRONIC OBSTRUCTIVE PULMONARY DISEASE, U 02/16/2019 NICHELLE LR DO Ot K57.90 DVRTCLOS OF INTEST, PART UNSP, W/O PERF 02/16/2019 NICHELLE LR DO Ot M19.91 PRIMARY OSTEOARTHRITIS, UNSPECIFIED SITE 02/16/2019 NICHELLE LR DO Ot R53.1 WEAKNESS 02/16/2019 LR DO, NICHELLE Ot R53.81 OTHER MALAISE 02/16/2019 LR DO, NICHELLE Ot R53.83 OTHER FATIGUE 02/16/2019 LR DO, NICHELLE Ot R60.0 LOCALIZED EDEMA 02/16/2019 LR DO, NICHELLE Ot Z85.03 8 PERSONAL HISTORY OF MALIGNANT NEOPLASM O 02/22/2019 STEPHANY ALY MD, Ot K57.30 DVRTCLOS OF LG INT W/O PERFORATION OR AB 02/22/2019 STEPHANY ALY MD, Ot K64.0 FIRST DEGREE HEMORRHOIDS 02/22/2019 STEPHANY ALY MD, Ot Z12.11 ENCOUNTER FOR SCREENING FOR MALIGNANT NE 02/22/2019 STEPHANY ALY MD, Ot Z85.03 8 PERSONAL HISTORY OF MALIGNANT NEOPLASM O 02/23/2019 YORDAN RODRIGUEZ MD, Ot Z12.3 1 ENCNTR SCREEN MAMMOGRAM FOR MALIGNANT NE 02/24/2019 YORDAN RODRIGUEZ MD, Ot Z12.3 1 ENCNTR SCREEN MAMMOGRAM FOR MALIGNANT NE 02/27/2019 YORDAN RODRIGUEZ MD, Ot Z12.3 1 ENCNTR SCREEN MAMMOGRAM FOR MALIGNANT NE Procedures Code Description Performed By Per alvin On [id number] RE SECTION OF RIGHT LARGE INTESTINE, PERC 11/19/2016 Results Test Result Range Complete blood count (CBC) with automate d white blood cell (WBC) differential - 10/23/16 19:20 Blood leukocytes automated count (number/volume) 8.0 10*3/uL 4.3-11.0 Blood erythrocytes automated count (number/volume) 2.48 10*6/uL 4.35-5.85 Venous blood hemoglobin measurement (mass/volume) 6.1 g/dL 11.5-16.0 Blood hematocrit (volume fraction) 21 % 35-52 Automated erythrocyte mean corpuscular volume 86 [ foz_us] 80-99 Automated erythrocyte mean corpuscular h emoglobin (mass per erythrocyte) 25 pg 25-34 Automated erythrocyte mean corpuscular h emoglobin concentration measurement (mass/volume) 29 g/dL 32-36 Automated erythrocyte distribution width ratio 14. 8 % 10.0- 14.5 Automated blood platelet count (count/volume) 388 10*3/uL 130-400 Automated blood platelet mean volume measurement 9.8 [foz_us] 7.4-10.4 Automated blood neutrophils/100 leukocytes 61 % 42-75 Automated blood lymphocytes/100 leukocytes 25 % 12-44 Blood monocytes/100 leukocytes 10 % 0-12 Automated blood eosinophils/100 leukocytes 4 % 0-10 Automated blood basophils/100 leukocytes 1 % 0-10 Blood neutrophils automated count (number/volume) 4.9 10*3 1.8-7.8 Blood lymphocytes automated count (number/volume) 2.0 10*3 1.0-4.0 Blood monocytes automated count (number/volume) 0. 8 10*3 0.0-1.0 Automated eosinophil count 0.3 10*3/uL 0 .0-0.3 Automated blood basophil count (count/volume) 0.0 10*3/uL 0.0-0.1 PT panel in platelet poor plasma by coag ulation assay - 10/23/16 19:20 Prothrombin time (PT) in platelet poor plasma by coagu lation assay 25.5 s 12.2-14.7 INR in platelet poor plasma or blood by coagulation as say 2.3 0.8-1.4 Activated partial thromboplastin time (a PTT) in platelet poor plasma bycoagulation assay - 10/23/16 19:20 Activated partial thromboplastin time (a PTT) in platelet poor plasma bycoagulation assay 30 s 24-35 RED CELLS LEUKO REDUCED AS1 - 10/23/16 1 9:20 RED CELLS LEUKO REDUCED AS1 T RANSFUSED 10/25/16 1519 NR Blood type T Indirect antibody screen pa aroldo - 10/23/16 19:20 ABO+Rh group AP NR Transfusion band number [id number] NR Blood group antibody screen NEGATIVE NR G Serum or plasma troponin i.cardiac measu rement (mass/volume) - 10/23/16 19:20 Serum or plasma troponin i.cardiac measurement (mass/v olume) < ng/mL <0.30 Serum or plasma lithium measurement (mol es/volume) - 10/23/16 19:20 BNP level 654.2 pg/mL <100.0 Complete urinalysis with reflex to cultu re - 10/23/16 20:35 Urine color determination YELLOW NRG Urine clarity determination CLEAR NR G Urine pH measurement by test strip 7 5-9 Specific gravity of urine by test strip 1.010 1.016-1.022 Urine protein assay by test strip, semi-quantitative NEGATIVE NEGATIVE Urine glucose detection by automated test strip NE GATIVE NEGATIVE Erythrocytes detection in urine sediment by light micr oscopy NEGATIVE NEGATIVE Urine ketones detection by automated test strip NE GATIVE NEGATIVE Urine nitrite detection by test strip NEGATIVE NEGATIVE Urine total bilirubin detection by test strip NEGA TIVE NEGATIVE Urine urobilinogen measurement by automated test strip (mass/volume) NORMAL NORMAL Urine leukocyte esterase detection by dipstick 3+ NEGATIVE Automated urine sediment erythrocyte cou nt by microscopy (number/high power field) NONE NRG Automated urine sediment leukocyte count by microscopy (number/high power field) [HPF] NRG Bacteria detection in urine sediment by light microsco py NONE NRG Squamous epithelial cells detection in u rine sediment by light microscopy NONE NRG Crystals detection in urine sediment by light microsco py NONE NRG Casts detection in urine sediment by light microscopy NONE NRG Mucus detection in urine sediment by light microscopy NEGATIVE NRG Complete urinalysis with reflex to culture NO NRG ANEMIA ANALYZER - 10/24/16 04:45 Blood leukocytes automated count (number/volume) 8.7 10*3/uL 4.3-11.0 Blood erythrocytes automated count (number/volume) 3.05 10*6/uL 4.35-5.85 Venous blood hemoglobin measurement (mass/volume) 8.0 g/dL 11.5-16.0 Blood hematocrit (volume fraction) 26 % 35-52 Automated erythrocyte mean corpuscular volume 86 [ foz_us] 80-99 Automated erythrocyte mean corpuscular h emoglobin (mass per erythrocyte) 26 pg 25-34 Automated erythrocyte mean corpuscular h emoglobin concentration measurement (mass/volume) 31 g/dL 32-36 Automated erythrocyte distribution width ratio 14. 7 % 10.0- 14.5 Automated blood platelet count (count/volume) 313 10*3/uL 130-400 Automated blood platelet mean volume measurement 9.9 [foz_us] 7.4-10.4 Automated blood neutrophils/100 leukocytes 62 % 42-75 Automated blood lymphocytes/100 leukocytes 23 % 12-44 Blood monocytes/100 leukocytes 13 % NRG Automated blood eosinophils/100 leukocytes 4 % 0-10 Automated blood basophils/100 leukocytes 0 % 0-10 Blood neutrophils automated count (number/volume) 5.4 10*3 1.8-7.8 Blood lymphocytes automated count (number/volume) 2.0 10*3 1.0-4.0 Blood monocytes automated count (number/volume) 0. 9 10*3 0.0-1.0 Automated eosinophil count 0.4 10*3/uL 0 .0-0.3 Automated blood basophil count (count/volume) 0.0 10*3/uL 0.0-0.1 Manual blood segmented neutrophils/100 leukocytes 69 % NRG Blood band neutrophils/100 leukocytes 0 % NRG Manual blood lymphocytes/100 leukocytes 15 % NRG Manual eosinophils/100 leukocytes in nose 3 % NRG Manual blood basophils/100 leukocytes 0 % NRG Blood polychromasia detection by light microscopy SLIGHT NRG Blood anisocytosis detection by light microscopy M ODERATE NRG Blood macrocytes detection by light microscopy MOD ERATE NRG Blood ovalocytes detection by light microscopy [facility] NRG Blood poikilocytosis detection by light microscopy SLIGHT NRG Blood hypochromia detection by light microscopy MA RKED NRG Blood microcytes detection by light microscopy [facility] NRG Blood reticulocytes count (number/volume) 71 10*9/ L 24-90 Blood reticulocytes/100 erythrocytes 2.34 % 0.50-2.40 Blood target cells detection by light microscopy S LIGHT NRG Blood dacrocytes detection by light microscopy [facility] Serum or plasma folate measurement (mass /volume) - 10/24/16 04:45 Serum or plasma folate measurement (mass/volume) 1 9.8 % 1.5- 24.0 Cyanocobalamin measurement - 10/24/16 04 :45 Vitamin B12 792 pg/mL 200-1000 Complete blood count (CBC) with automate d white blood cell (WBC) differential - 10/24/16 05:03 Blood leukocytes automated count (number/volume) 8.3 10*3/uL 4.3-11.0 Blood erythrocytes automated count (number/volume) 2.99 10*6/uL 4.35-5.85 Venous blood hemoglobin measurement (mass/volume) 8.1 g/dL 11.5-16.0 Blood hematocrit (volume fraction) 26 % 35-52 Automated erythrocyte mean corpuscular volume 85 [ foz_us] 80-99 Automated erythrocyte mean corpuscular h emoglobin (mass per erythrocyte) 27 pg 25-34 Automated erythrocyte mean corpuscular h emoglobin concentration measurement (mass/volume) 32 g/dL 32-36 Automated erythrocyte distribution width ratio 14. 3 % 10.0- 14.5 Automated blood platelet count (count/volume) 293 10*3/uL 130-400 Automated blood platelet mean volume measurement 9.9 [foz_us] 7.4-10.4 Automated blood neutrophils/100 leukocytes 65 % 42-75 Automated blood lymphocytes/100 leukocytes 20 % 12-44 Blood monocytes/100 leukocytes 12 % 0-12 Automated blood eosinophils/100 leukocytes 3 % 0-10 Automated blood basophils/100 leukocytes 0 % 0-10 Blood neutrophils automated count (number/volume) 5.4 10*3 1.8-7.8 Blood lymphocytes automated count (number/volume) 1.7 10*3 1.0-4.0 Blood monocytes automated count (number/volume) 1. 0 10*3 0.0-1.0 Automated eosinophil count 0.2 10*3/uL 0 .0-0.3 Automated blood basophil count (count/volume) 0.0 10*3/uL 0.0-0.1 PT panel in platelet poor plasma by coag ulation assay - 10/24/16 05:03 Prothrombin time (PT) in platelet poor plasma by coagu lation assay 15.0 s 12.2-14.7 INR in platelet poor plasma or blood by coagulation as say 1.2 0.8-1.4 Whole blood basic metabolic panel - 10/06 11/22 05:03 Serum or plasma sodium measurement (moles/volume) 139 mmol/L 135-145 Serum or plasma potassium measurement (moles/volume) 3.9 mmol/L 3.6-5.0 Serum or plasma chloride measurement (moles/volume) 106 mmol/L 98-107 Carbon dioxide 24 mmol/L 21-32 Serum or plasma anion gap determination (moles/volume) 9 mmol/L 5-14 Serum or plasma urea nitrogen measurement (mass/volume ) 23 mg/dL 7-18 Serum or plasma creatinine measurement (mass/volume) 1.10 mg/dL 0.60-1.30 Serum or plasma urea nitrogen/creatinine mass ratio 21 NRG Serum or plasma creatinine measurement w ith calculation of estimated glomerular filtration rate 47 NRG Serum or plasma glucose measurement (mass/volume) 102 mg/dL 70-105 Serum or plasma calcium measurement (mass/volume) 8.6 mg/dL 8.5-10.1 Lactate dehydrogenase 1 [enzymatic activ ity/volume] in serum or plasma - 10/24/16 05:03 Lactate dehydrogenase 1 [enzymatic activ ity/volume] in serum or plasma 195 U/L 125-220 Automated blood complete blood count (he mogram) panel - 10/25/16 04:45 Blood leukocytes automated count (number/volume) 8.4 10*3/uL 4.3-11.0 Blood erythrocytes automated count (number/volume) 3.04 10*6/uL 4.35-5.85 Venous blood hemoglobin measurement (mass/volume) 7.9 g/dL 11.5-16.0 Blood hematocrit (volume fraction) 26 % 35-52 Automated erythrocyte mean corpuscular volume 86 [ foz_us] 80-99 Automated erythrocyte mean corpuscular h emoglobin (mass per erythrocyte) 26 pg 25-34 Automated erythrocyte mean corpuscular h emoglobin concentration measurement (mass/volume) 30 g/dL 32-36 Automated erythrocyte distribution width ratio 14. 7 % 10.0- 14.5 Automated blood platelet count (count/volume) 300 10*3/uL 130-400 Automated blood platelet mean volume measurement 9.7 [foz_us] 7.4-10.4 Whole blood basic metabolic panel - 10/07 04:45 Serum or plasma sodium measurement (moles/volume) 136 mmol/L 135-145 Serum or plasma potassium measurement (moles/volume) 4.4 mmol/L 3.6-5.0 Serum or plasma chloride measurement (moles/volume) 106 mmol/L 98-107 Carbon dioxide 20 mmol/L 21-32 Serum or plasma anion gap determination (moles/volume) 10 mmol/L 5-14 Serum or plasma urea nitrogen measurement (mass/volume ) 18 mg/dL 7-18 Serum or plasma creatinine measurement (mass/volume) 0.93 mg/dL 0.60-1.30 Serum or plasma urea nitrogen/creatinine mass ratio 19 NRG Serum or plasma creatinine measurement w ith calculation of estimated glomerular filtration rate 58 NRG Serum or plasma glucose measurement (mass/volume) 94 mg/dL 70-105 Serum or plasma calcium measurement (mass/volume) 8.4 mg/dL 8.5-10.1 Stool occult blood screen - 10/25/16 07: 40 Stool gastrointestinal hemoglobin detection NEGATI VE NEGATIVE Stool occult blood screen - 10/25/16 08: 13 Stool gastrointestinal hemoglobin detection POSITI VE NEGATIVE Whole blood basic metabolic panel - 10/07 03/24 06:09 Serum or plasma sodium measurement (moles/volume) 135 mmol/L 135-145 Serum or plasma potassium measurement (moles/volume) 4.7 mmol/L 3.6-5.0 Serum or plasma chloride measurement (moles/volume) 105 mmol/L 98-107 Carbon dioxide 23 mmol/L 21-32 Serum or plasma anion gap determination (moles/volume) 7 mmol/L 5-14 Serum or plasma urea nitrogen measurement (mass/volume ) 16 mg/dL 7-18 Serum or plasma creatinine measurement (mass/volume) 0.91 mg/dL 0.60-1.30 Serum or plasma urea nitrogen/creatinine mass ratio 18 NRG Serum or plasma creatinine measurement w ith calculation of estimated glomerular filtration rate 59 NRG Serum or plasma glucose measurement (mass/volume) 93 mg/dL 70-105 Serum or plasma calcium measurement (mass/volume) 8.8 mg/dL 8.5-10.1 Automated blood complete blood count (he mogram) panel - 10/26/16 06:09 Blood leukocytes automated count (number/volume) 9.0 10*3/uL 4.3-11.0 Blood erythrocytes automated count (number/volume) 3.82 10*6/uL 4.35-5.85 Venous blood hemoglobin measurement (mass/volume) 10.7 g/dL 11.5-16.0 Blood hematocrit (volume fraction) 33 % 35-52 Automated erythrocyte mean corpuscular volume 87 [ foz_us] 80-99 Automated erythrocyte mean corpuscular h emoglobin (mass per erythrocyte) 28 pg 25-34 Automated erythrocyte mean corpuscular h emoglobin concentration measurement (mass/volume) 32 g/dL 32-36 Automated erythrocyte distribution width ratio 15. 0 % 10.0- 14.5 Automated blood platelet count (count/volume) 275 10*3/uL 130-400 Automated blood platelet mean volume measurement 10.2 [foz_us] 7.4-10.4 Serum ragweed IgE antibody assay - 11/06 11:35 Serum ragweed IgE antibody assay 0.6 % 0.0-5.0 Methicillin resistant Staphylococcus aur eus (MRSA) screening culture - 11/17/16 15:40 Methicillin resistant Staphylococcus aureus (MRSA) scr eening culture NEG NRG Complete blood count (CBC) with automate d white blood cell (WBC) differential - 11/20/16 03:45 Blood leukocytes automated count (number/volume) 13.1 10*3/uL 4.3-11.0 Blood erythrocytes automated count (number/volume) 4.38 10*6/uL 4.35-5.85 Venous blood hemoglobin measurement (mass/volume) 12.5 g/dL 11.5-16.0 Blood hematocrit (volume fraction) 39 % 35-52 Automated erythrocyte mean corpuscular volume 89 [ foz_us] 80-99 Automated erythrocyte mean corpuscular h emoglobin (mass per erythrocyte) 29 pg 25-34 Automated erythrocyte mean corpuscular h emoglobin concentration measurement (mass/volume) 32 g/dL 32-36 Automated erythrocyte distribution width ratio 17. 5 % 10.0- 14.5 Automated blood platelet count (count/volume) 229 10*3/uL 130-400 Automated blood platelet mean volume measurement 10.4 [foz_us] 7.4-10.4 Automated blood neutrophils/100 leukocytes 94 % 42-75 Automated blood lymphocytes/100 leukocytes 3 % 12-44 Blood monocytes/100 leukocytes 3 % 0-12 Automated blood eosinophils/100 leukocytes 0 % 0-10 Automated blood basophils/100 leukocytes 0 % 0-10 Blood neutrophils automated count (number/volume) 12.3 10*3 1.8-7.8 Blood lymphocytes automated count (number/volume) 0.4 10*3 1.0-4.0 Blood monocytes automated count (number/volume) 0. 4 10*3 0.0-1.0 Automated eosinophil count 0.0 10*3/uL 0 .0-0.3 Automated blood basophil count (count/volume) 0.0 10*3/uL 0.0-0.1 Whole blood basic metabolic panel - 11/06 07/22 03:45 Serum or plasma sodium measurement (moles/volume) 135 mmol/L 135-145 Serum or plasma potassium measurement (moles/volume) 4.7 mmol/L 3.6-5.0 Serum or plasma chloride measurement (moles/volume) 105 mmol/L 98-107 Carbon dioxide 19 mmol/L 21-32 Serum or plasma anion gap determination (moles/volume) 11 mmol/L 5-14 Serum or plasma urea nitrogen measurement (mass/volume ) 21 mg/dL 7-18 Serum or plasma creatinine measurement (mass/volume) 1.24 mg/dL 0.60-1.30 Serum or plasma urea nitrogen/creatinine mass ratio 17 NRG Serum or plasma creatinine measurement w ith calculation of estimated glomerular filtration rate 41 NRG Serum or plasma glucose measurement (mass/volume) 148 mg/dL 70-105 Serum or plasma calcium measurement (mass/volume) 8.1 mg/dL 8.5-10.1 Serum or plasma phosphate measurement (m ass/volume) - 11/20/16 03:45 Serum or plasma phosphate measurement (mass/volume) 5.1 mg/dL 2.3-4.7 Magnesium - 11/20/16 03:45 Magnesium 2.1 mg/dL 1.8-2.4 Whole blood basic metabolic panel - 11/06 07/22 19:25 Serum or plasma sodium measurement (moles/volume) 135 mmol/L 135-145 Serum or plasma potassium measurement (moles/volume) 4.7 mmol/L 3.6-5.0 Serum or plasma chloride measurement (moles/volume) 109 mmol/L 98-107 Carbon dioxide 16 mmol/L -32 Serum or plasma anion gap determination (moles/volume) 10 mmol/L 5-14 Serum or plasma urea nitrogen measurement (mass/volume ) 26 mg/dL 7-18 Serum or plasma creatinine measurement (mass/volume) 1.55 mg/dL 0.60-1.30 Serum or plasma urea nitrogen/creatinine mass ratio 17 NRG Serum or plasma creatinine measurement w ith calculation of estimated glomerular filtration rate 32 NRG Serum or plasma glucose measurement (mass/volume) 115 mg/dL 70-105 Serum or plasma calcium measurement (mass/volume) 7.5 mg/dL 8.5-10.1 Complete blood count (CBC) with automate d white blood cell (WBC) differential - 11/20/16 19:25 Blood leukocytes automated count (number/volume) 20.6 10*3/uL 4.3-11.0 Blood erythrocytes automated count (number/volume) 3.74 10*6/uL 4.35-5.85 Venous blood hemoglobin measurement (mass/volume) 10.5 g/dL 11.5-16.0 Blood hematocrit (volume fraction) 34 % 35-52 Automated erythrocyte mean corpuscular volume 90 [ foz_us] 80-99 Automated erythrocyte mean corpuscular h emoglobin (mass per erythrocyte) 28 pg 25-34 Automated erythrocyte mean corpuscular h emoglobin concentration measurement (mass/volume) 31 g/dL 32-36 Automated erythrocyte distribution width ratio 18. 0 % 10.0- 14.5 Automated blood platelet count (count/volume) 189 10*3/uL 130-400 Automated blood platelet mean volume measurement 10.5 [foz_us] 7.4-10.4 Automated blood neutrophils/100 leukocytes 95 % 42-75 Automated blood lymphocytes/100 leukocytes 3 % 12-44 Blood monocytes/100 leukocytes 2 % 0-12 Automated blood eosinophils/100 leukocytes 0 % 0-10 Automated blood basophils/100 leukocytes 0 % 0-10 Blood neutrophils automated count (number/volume) 19.4 10*3 1.8-7.8 Blood lymphocytes automated count (number/volume) 0.6 10*3 1.0-4.0 Blood monocytes automated count (number/volume) 0. 5 10*3 0.0-1.0 Automated eosinophil count 0.0 10*3/uL 0 .0-0.3 Automated blood basophil count (count/volume) 0.0 10*3/uL 0.0-0.1 Blood manual differential performed dete ction - 11/20/16 19:25 Blood monocytes/100 leukocytes 2 % NRG Manual blood segmented neutrophils/100 leukocytes 52 % NRG Blood band neutrophils/100 leukocytes 39 % NRG Manual blood lymphocytes/100 leukocytes 6 % NRG Manual eosinophils/100 leukocytes in nose 0 % NRG Manual blood basophils/100 leukocytes 0 % NRG Blood erythrocyte morphology finding identification NORMAL NRG Manual blood metamyelocytes/100 leukocytes 1 % NRG Venous blood hemoglobin measurement (mas s/volume) - 11/21/16 01:04 Venous blood hemoglobin measurement (mass/volume) 10.0 g/dL 11.5-16.0 Blood lactic acid measurement (moles/vol ume) - 11/21/16 01:04 Blood lactic acid measurement (moles/volume) 1.30 mmol/L 0.50-2.00 Whole blood basic metabolic panel - 11/06 08/22 01:04 Serum or plasma sodium measurement (moles/volume) 137 mmol/L 135-145 Serum or plasma potassium measurement (moles/volume) 4.4 mmol/L 3.6-5.0 Serum or plasma chloride measurement (moles/volume) 112 mmol/L 98-107 Carbon dioxide 16 mmol/L 21-32 Serum or plasma anion gap determination (moles/volume) 9 mmol/L 5-14 Serum or plasma urea nitrogen measurement (mass/volume ) 27 mg/dL 7-18 Serum or plasma creatinine measurement (mass/volume) 1.47 mg/dL 0.60-1.30 Serum or plasma urea nitrogen/creatinine mass ratio 18 NRG Serum or plasma creatinine measurement w ith calculation of estimated glomerular filtration rate 34 NRG Serum or plasma glucose measurement (mass/volume) 97 mg/dL 70-105 Serum or plasma calcium measurement (mass/volume) 7.1 mg/dL 8.5-10.1 Magnesium - 11/21/16 01:04 Magnesium 1.7 mg/dL 1.8-2.4 Serum or plasma troponin i.cardiac measu rement (mass/volume) - 11/21/16 01:04 Serum or plasma troponin i.cardiac measurement (mass/v olume) < ng/mL <0.30 Serum or plasma albumin measurement (mas s/volume) - 11/21/16 01:04 Serum or plasma albumin measurement (mass/volume) 2.6 g/dL 3.2-4.5 Serum or plasma lithium measurement (mol es/volume) - 11/21/16 01:04 BNP level 654.5 pg/mL <100.0 Whole blood basic metabolic panel - 11/06 08/22 04:25 Serum or plasma sodium measurement (moles/volume) 140 mmol/L 135-145 Serum or plasma potassium measurement (moles/volume) 4.2 mmol/L 3.6-5.0 Serum or plasma chloride measurement (moles/volume) 112 mmol/L 98-107 Carbon dioxide 19 mmol/L 21-32 Serum or plasma anion gap determination (moles/volume) 9 mmol/L 5-14 Serum or plasma urea nitrogen measurement (mass/volume ) 25 mg/dL 7-18 Serum or plasma creatinine measurement (mass/volume) 1.39 mg/dL 0.60-1.30 Serum or plasma urea nitrogen/creatinine mass ratio 18 NRG Serum or plasma creatinine measurement w ith calculation of estimated glomerular filtration rate 36 NRG Serum or plasma glucose measurement (mass/volume) 111 mg/dL 70-105 Serum or plasma calcium measurement (mass/volume) 6.9 mg/dL 8.5-10.1 Serum or plasma phosphate measurement (m ass/volume) - 11/21/16 04:25 Serum or plasma phosphate measurement (mass/volume) 3.3 mg/dL 2.3-4.7 Magnesium - 11/21/16 04:25 Magnesium 2.4 mg/dL 1.8-2.4 Complete blood count (CBC) with automate d white blood cell (WBC) differential - 11/21/16 04:30 Blood leukocytes automated count (number/volume) 15.1 10*3/uL 4.3-11.0 Blood erythrocytes automated count (number/volume) 3.13 10*6/uL 4.35-5.85 Venous blood hemoglobin measurement (mass/volume) 8.9 g/dL 11.5-16.0 Blood hematocrit (volume fraction) 28 % 35-52 Automated erythrocyte mean corpuscular volume 91 [ foz_us] 80-99 Automated erythrocyte mean corpuscular h emoglobin (mass per erythrocyte) 28 pg 25-34 Automated erythrocyte mean corpuscular h emoglobin concentration measurement (mass/volume) 31 g/dL 32-36 Automated erythrocyte distribution width ratio 18. 3 % 10.0- 14.5 Automated blood platelet count (count/volume) 146 10*3/uL 130-400 Automated blood platelet mean volume measurement 10.2 [foz_us] 7.4-10.4 Automated blood neutrophils/100 leukocytes 94 % 42-75 Automated blood lymphocytes/100 leukocytes 3 % 12-44 Blood monocytes/100 leukocytes 3 % 0-12 Automated blood eosinophils/100 leukocytes 0 % 0-10 Automated blood basophils/100 leukocytes 0 % 0-10 Blood neutrophils automated count (number/volume) 14.2 10*3 1.8-7.8 Blood lymphocytes automated count (number/volume) 0.5 10*3 1.0-4.0 Blood monocytes automated count (number/volume) 0. 4 10*3 0.0-1.0 Automated eosinophil count 0.0 10*3/uL 0 .0-0.3 Automated blood basophil count (count/volume) 0.0 10*3/uL 0.0-0.1 Complete blood count (CBC) with automate d white blood cell (WBC) differential - 11/22/16 04:15 Blood leukocytes automated count (number/volume) 16.0 10*3/uL 4.3-11.0 Blood erythrocytes automated count (number/volume) 3.26 10*6/uL 4.35-5.85 Venous blood hemoglobin measurement (mass/volume) 9.2 g/dL 11.5-16.0 Blood hematocrit (volume fraction) 30 % 35-52 Automated erythrocyte mean corpuscular volume 93 [ foz_us] 80-99 Automated erythrocyte mean corpuscular h emoglobin (mass per erythrocyte) 28 pg 25-34 Automated erythrocyte mean corpuscular h emoglobin concentration measurement (mass/volume) 30 g/dL 32-36 Automated erythrocyte distribution width ratio 19. 0 % 10.0- 14.5 Automated blood platelet count (count/volume) 160 10*3/uL 130-400 Automated blood platelet mean volume measurement 10.5 [foz_us] 7.4-10.4 Automated blood neutrophils/100 leukocytes 93 % 42-75 Automated blood lymphocytes/100 leukocytes 4 % 12-44 Blood monocytes/100 leukocytes 3 % 0-12 Automated blood eosinophils/100 leukocytes 0 % 0-10 Automated blood basophils/100 leukocytes 0 % 0-10 Blood neutrophils automated count (number/volume) 14.8 10*3 1.8-7.8 Blood lymphocytes automated count (number/volume) 0.7 10*3 1.0-4.0 Blood monocytes automated count (number/volume) 0. 5 10*3 0.0-1.0 Automated eosinophil count 0.0 10*3/uL 0 .0-0.3 Automated blood basophil count (count/volume) 0.0 10*3/uL 0.0-0.1 Whole blood basic metabolic panel - 11/06 09/21 04:15 Serum or plasma sodium measurement (moles/volume) 139 mmol/L 135-145 Serum or plasma potassium measurement (moles/volume) 4.2 mmol/L 3.6-5.0 Serum or plasma chloride measurement (moles/volume) 114 mmol/L 98-107 Carbon dioxide 13 mmol/L 21-32 Serum or plasma anion gap determination (moles/volume) 12 mmol/L 5-14 Serum or plasma urea nitrogen measurement (mass/volume ) 26 mg/dL 7-18 Serum or plasma creatinine measurement (mass/volume) 1.02 mg/dL 0.60-1.30 Serum or plasma urea nitrogen/creatinine mass ratio 25 NRG Serum or plasma creatinine measurement w ith calculation of estimated glomerular filtration rate 52 NRG Serum or plasma glucose measurement (mass/volume) 80 mg/dL 70-105 Serum or plasma calcium measurement (mass/volume) 7.9 mg/dL 8.5-10.1 Serum or plasma phosphate measurement (m ass/volume) - 11/22/16 04:15 Serum or plasma phosphate measurement (mass/volume) 3.5 mg/dL 2.3-4.7 Magnesium - 11/22/16 04:15 Magnesium 2.2 mg/dL 1.8-2.4 Arterial blood gas measurement - 7 05:53 Blood pCO2 45 mm[Hg] 35-45 Blood pO2 126 mm[Hg] 79-93 Arterial blood bicarbonate measurement (moles/volume) 15 mmol/L 23-27 Arterial blood base excess by calculation -11.6 mm ol/L -2.5-2.5 Arterial blood oxygen saturation measurement 99 % 94-100 * Inhaled oxygen flow rate UNKNOWN NRG Arterial blood pH measurement with patient temperature correction 7.16 7.37-7.43 Arterial blood carbon dioxide, total measurement (mole s/volume) 16.7 mmol/L 21.0-31.0 Body site VENOUS NRG Assessment of wrist artery patency prior to arterial p uncture NOT NEEDED NRG Setting of ventilation mode NA NR G Measurement of body temperature 98.9 NRG Blood lactic acid measurement (moles/vol ume) - 11/22/16 05:53 Blood lactic acid measurement (moles/volume) 0.61 mmol/L 0.50-2.00 Complete urinalysis with reflex to cultu re - 11/22/16 06:50 Urine color determination YELLOW NRG Urine clarity determination CLOUDY NR G Urine pH measurement by test strip 5 5-9 Specific gravity of urine by test strip 1.025 1.016-1.022 Urine protein assay by test strip, semi-quantitative 3+ NEGATIVE Urine glucose detection by automated test strip NE GATIVE NEGATIVE Erythrocytes detection in urine sediment by light micr oscopy 5+ NEGATIVE Urine ketones detection by automated test strip 4+ NEGATIVE Urine nitrite detection by test strip POSITIVE NEGATIVE Urine total bilirubin detection by test strip NEGA TIVE NEGATIVE Urine urobilinogen measurement by automated test strip (mass/volume) NORMAL NORMAL Urine leukocyte esterase detection by dipstick 3+ NEGATIVE Automated urine sediment erythrocyte cou nt by microscopy (number/high power field) [HPF] NRG Automated urine sediment leukocyte count by microscopy (number/high power field) [HPF] NRG Bacteria detection in urine sediment by light microsco py MODERATE NRG Squamous epithelial cells detection in u rine sediment by light microscopy NONE NRG Crystals detection in urine sediment by light microsco py PRESENT NRG Casts detection in urine sediment by light microscopy NONE NRG Mucus detection in urine sediment by light microscopy NEGATIVE NRG Complete urinalysis with reflex to culture YES NRG Amorphous sediment detection in urine sediment by ligh t microscopy LARGE MAHNAZ URATES NRG Electrolytes 3 panel - 11/22/16 06:50 Urine potassium measurement 66 mmol/L 25 -125 Urine sodium measurement (moles/volume) < mmol/L 50-200 Urine chloride measurement (moles/volume) 34 mmol/ L 110-250 Bacterial urine culture - 11/22/16 06:50 Bacterial urine culture [id number] NRG COLONY COUNT >100,000/ML NRG FTX;REPORTABLE SENSITIVITY REPORTED 11/24/16 7:50 NRG Bacterial susceptibility panel - 7 06:50 Gentamicin susceptibility test by minimum inhibitory c oncentration <= NRG Trimethoprim/sulfamethoxazole susceptibi lity test by minimum inhibitoryconcentration <= NRG Tobramycin susceptibility test by minimum inhibitory c oncentration <= NRG Cefazolin susceptibility test by minimum inhibitory co ncentration >= NRG Ceftriaxone susceptibility test by minimum inhibitory concentration <= NRG Piperacillin/tazobactam susceptibility t est by minimum inhibitory concentration <= NRG Ciprofloxacin susceptibility test by minimum inhibitor y concentration <= NRG Meropenem susceptibility test by minimum inhibitory co ncentration <= NRG Nitrofurantoin susceptibility test by mi nimum inhibitory concentration <= NRG Aztreonam susceptibility test by minimum inhibitory co ncentration <= NRG Bacterial susceptibility panel - 7 06:50 Gentamicin susceptibility test by minimum inhibitory c oncentration <= NRG Trimethoprim/sulfamethoxazole susceptibi lity test by minimum inhibitoryconcentration <= NRG Ampicillin susceptibility test by minimum inhibitory c oncentration >= NRG Tobramycin susceptibility test by minimum inhibitory c oncentration <= NRG Cefazolin susceptibility test by minimum inhibitory co ncentration <= NRG Ceftriaxone susceptibility test by minimum inhibitory concentration <= NRG Ampicillin/sulbactam susceptibility test by minimum inhibitory concentration 4 NRG Piperacillin/tazobactam susceptibility t est by minimum inhibitory concentration <= NRG Ciprofloxacin susceptibility test by minimum inhibitor y concentration <= NRG Meropenem susceptibility test by minimum inhibitory co ncentration <= NRG Nitrofurantoin susceptibility test by mi nimum inhibitory concentration 32 NRG Aztreonam susceptibility test by minimum inhibitory co ncentration <= NRG Extended spectrum beta lactamase (ESBL) producing bacteria susceptibility test by minimum inhibitory concentration - NRG Whole blood basic metabolic panel - 11/06 09/21 12:55 Serum or plasma sodium measurement (moles/volume) 137 mmol/L 135-145 Serum or plasma potassium measurement (moles/volume) 4.3 mmol/L 3.6-5.0 Serum or plasma chloride measurement (moles/volume) 111 mmol/L 98-107 Carbon dioxide 16 mmol/L 21-32 Serum or plasma anion gap determination (moles/volume) 10 mmol/L 5-14 Serum or plasma urea nitrogen measurement (mass/volume ) 28 mg/dL 7-18 Serum or plasma creatinine measurement (mass/volume) 1.03 mg/dL 0.60-1.30 Serum or plasma urea nitrogen/creatinine mass ratio 27 NRG Serum or plasma creatinine measurement w ith calculation of estimated glomerular filtration rate 51 NRG Serum or plasma glucose measurement (mass/volume) 109 mg/dL 70-105 Serum or plasma calcium measurement (mass/volume) 8.0 mg/dL 8.5-10.1 Creatinine body fluid - 11/22/16 16:04 Creatinine body fluid 1 mg/dL NRG Complete blood count (CBC) with automate d white blood cell (WBC) differential - 11/23/16 01:57 Blood leukocytes automated count (number/volume) 15.7 10*3/uL 4.3-11.0 Blood erythrocytes automated count (number/volume) 3.11 10*6/uL 4.35-5.85 Venous blood hemoglobin measurement (mass/volume) 8.9 g/dL 11.5-16.0 Blood hematocrit (volume fraction) 28 % 35-52 Automated erythrocyte mean corpuscular volume 90 [ foz_us] 80-99 Automated erythrocyte mean corpuscular h emoglobin (mass per erythrocyte) 29 pg 25-34 Automated erythrocyte mean corpuscular h emoglobin concentration measurement (mass/volume) 32 g/dL 32-36 Automated erythrocyte distribution width ratio 18. 8 % 10.0- 14.5 Automated blood platelet count (count/volume) 162 10*3/uL 130-400 Automated blood platelet mean volume measurement 10.0 [foz_us] 7.4-10.4 Automated blood neutrophils/100 leukocytes 91 % 42-75 Automated blood lymphocytes/100 leukocytes 6 % 12-44 Blood monocytes/100 leukocytes 3 % 0-12 Automated blood eosinophils/100 leukocytes 1 % 0-10 Automated blood basophils/100 leukocytes 0 % 0-10 Blood neutrophils automated count (number/volume) 14.2 10*3 1.8-7.8 Blood lymphocytes automated count (number/volume) 0.9 10*3 1.0-4.0 Blood monocytes automated count (number/volume) 0. 5 10*3 0.0-1.0 Automated eosinophil count 0.1 10*3/uL 0 .0-0.3 Automated blood basophil count (count/volume) 0.0 10*3/uL 0.0-0.1 Blood lactic acid measurement (moles/vol ume) - 11/23/16 01:57 Blood lactic acid measurement (moles/volume) 0.79 mmol/L 0.50-2.00 Whole blood basic metabolic panel - 11/06 10/22 01:57 Serum or plasma sodium measurement (moles/volume) 137 mmol/L 135-145 Serum or plasma potassium measurement (moles/volume) 3.7 mmol/L 3.6-5.0 Serum or plasma chloride measurement (moles/volume) 107 mmol/L 98-107 Carbon dioxide 20 mmol/L 21-32 Serum or plasma anion gap determination (moles/volume) 10 mmol/L 5-14 Serum or plasma urea nitrogen measurement (mass/volume ) 27 mg/dL 7-18 Serum or plasma creatinine measurement (mass/volume) 0.92 mg/dL 0.60-1.30 Serum or plasma urea nitrogen/creatinine mass ratio 29 NRG Serum or plasma creatinine measurement w ith calculation of estimated glomerular filtration rate 58 NRG Serum or plasma glucose measurement (mass/volume) 99 mg/dL 70-105 Serum or plasma calcium measurement (mass/volume) 7.7 mg/dL 8.5-10.1 Serum or plasma phosphate measurement (m ass/volume) - 11/23/16 01:57 Serum or plasma phosphate measurement (mass/volume) 2.2 mg/dL 2.3-4.7 Magnesium - 11/23/16 01:57 Magnesium 2.1 mg/dL 1.8-2.4 Complete urinalysis with reflex to cultu re - 11/23/16 06:30 Urine color determination YELLOW NRG Urine clarity determination CLEAR NR G Urine pH measurement by test strip 5 5-9 Specific gravity of urine by test strip 1.015 1.016-1.022 Urine protein assay by test strip, semi-quantitative 3+ NEGATIVE Urine glucose detection by automated test strip NE GATIVE NEGATIVE Erythrocytes detection in urine sediment by light micr oscopy 2+ NEGATIVE Urine ketones detection by automated test strip 3+ NEGATIVE Urine nitrite detection by test strip POSITIVE NEGATIVE Urine total bilirubin detection by test strip NEGA TIVE NEGATIVE Urine urobilinogen measurement by automated test strip (mass/volume) NORMAL NORMAL Urine leukocyte esterase detection by dipstick 3+ NEGATIVE Automated urine sediment erythrocyte cou nt by microscopy (number/high power field) NONE NRG Automated urine sediment leukocyte count by microscopy (number/high power field) [HPF] NRG Bacteria detection in urine sediment by light microsco py MODERATE NRG Squamous epithelial cells detection in u rine sediment by light microscopy 5-10 NRG Crystals detection in urine sediment by light microsco py NONE NRG Casts detection in urine sediment by light microscopy NONE NRG Mucus detection in urine sediment by light microscopy SMALL NRG Complete urinalysis with reflex to culture YES NRG Bacterial urine culture - 11/23/16 06:30 Bacterial urine culture [id number] NRG COLONY COUNT >100,000/ML NRG FTX;REPORTABLE SENSITIVTY NOT ROUTINE ON THIS ISOL ATE, NRG FREE TEXT ENTRY 2 NO FURTHER TESTING, UNLESS REQUE STED NRG Gram stain microscopy - 11/23/16 06:30 Gram stain microscopy TNP NRG Bacterial blood culture - 11/23/16 06:30 Bacterial blood culture NG NRG Bacterial body fluid culture - 11/23/16 06:30 FREE TEXT EXTERNAL SENSITIVITY REPORTED 11/24/16 17 :30 NRG QUANTITY OF GROWTH Scant Growth [facility] Bacterial body fluid culture [id number] [facility] Bacterial susceptibility panel - 7 06:30 Gentamicin susceptibility test by minimum inhibitory c oncentration <= NRG Trimethoprim/sulfamethoxazole susceptibi lity test by minimum inhibitoryconcentration <= NRG Ampicillin susceptibility test by minimum inhibitory c oncentration R NRG Tobramycin susceptibility test by minimum inhibitory c oncentration <= NRG Cefazolin susceptibility test by minimum inhibitory co ncentration <= NRG Ceftriaxone susceptibility test by minimum inhibitory concentration <= NRG Ampicillin/sulbactam susceptibility test by minimum inhibitory concentration 4 NRG Piperacillin/tazobactam susceptibility t est by minimum inhibitory concentration <= NRG Ciprofloxacin susceptibility test by minimum inhibitor y concentration <= NRG Meropenem susceptibility test by minimum inhibitory co ncentration <= NRG Nitrofurantoin susceptibility test by mi nimum inhibitory concentration 64 NRG Aztreonam susceptibility test by minimum inhibitory co ncentration <= NRG Extended spectrum beta lactamase (ESBL) producing bacteria susceptibility test by minimum inhibitory concentration - [facility] Bacterial susceptibility panel - 7 06:30 Gentamicin susceptibility test by minimum inhibitory c oncentration <= NRG Trimethoprim/sulfamethoxazole susceptibi lity test by minimum inhibitoryconcentration >= NRG Ampicillin susceptibility test by minimum inhibitory c oncentration >= NRG Tobramycin susceptibility test by minimum inhibitory c oncentration <= NRG Cefazolin susceptibility test by minimum inhibitory co ncentration <= NRG Ceftriaxone susceptibility test by minimum inhibitory concentration <= NRG Ampicillin/sulbactam susceptibility test by minimum inhibitory concentration 8 NRG Piperacillin/tazobactam susceptibility t est by minimum inhibitory concentration <= NRG Ciprofloxacin susceptibility test by minimum inhibitor y concentration <= NRG Meropenem susceptibility test by minimum inhibitory co ncentration <= NRG Aztreonam susceptibility test by minimum inhibitory co ncentration <= NRG Extended spectrum beta lactamase (ESBL) producing bacteria susceptibility test by minimum inhibitory concentration - [facility] Bacterial susceptibility panel - 7 06:30 Gentamicin susceptibility test by minimum inhibitory c oncentration <= NRG Trimethoprim/sulfamethoxazole susceptibi lity test by minimum inhibitoryconcentration >= NRG Ampicillin susceptibility test by minimum inhibitory c oncentration >= NRG Tobramycin susceptibility test by minimum inhibitory c oncentration <= NRG Cefazolin susceptibility test by minimum inhibitory co ncentration <= NRG Ceftriaxone susceptibility test by minimum inhibitory concentration <= NRG Ampicillin/sulbactam susceptibility test by minimum inhibitory concentration 16 NRG Piperacillin/tazobactam susceptibility t est by minimum inhibitory concentration <= NRG Ciprofloxacin susceptibility test by minimum inhibitor y concentration <= NRG Meropenem susceptibility test by minimum inhibitory co ncentration <= NRG Nitrofurantoin susceptibility test by mi nimum inhibitory concentration <= NRG Aztreonam susceptibility test by minimum inhibitory co ncentration <= NRG Extended spectrum beta lactamase (ESBL) producing bacteria susceptibility test by minimum inhibitory concentration - NRG Bacterial blood culture - 11/23/16 06:40 Bacterial blood culture NG NRG Bacterial blood culture - 11/23/16 06:40 Bacterial blood culture NG NRG Complete blood count (CBC) with automate d white blood cell (WBC) differential - 11/24/16 04:50 Blood leukocytes automated count (number/volume) 12.3 10*3/uL 4.3-11.0 Blood erythrocytes automated count (number/volume) 2.96 10*6/uL 4.35-5.85 Venous blood hemoglobin measurement (mass/volume) 8.3 g/dL 11.5-16.0 Blood hematocrit (volume fraction) 26 % 35-52 Automated erythrocyte mean corpuscular volume 88 [ foz_us] 80-99 Automated erythrocyte mean corpuscular h emoglobin (mass per erythrocyte) 28 pg 25-34 Automated erythrocyte mean corpuscular h emoglobin concentration measurement (mass/volume) 32 g/dL 32-36 Automated erythrocyte distribution width ratio 18. 7 % 10.0- 14.5 Automated blood platelet count (count/volume) 145 10*3/uL 130-400 Automated blood platelet mean volume measurement 10.2 [foz_us] 7.4-10.4 Automated blood neutrophils/100 leukocytes 85 % 42-75 Automated blood lymphocytes/100 leukocytes 8 % 12-44 Blood monocytes/100 leukocytes 6 % 0-12 Automated blood eosinophils/100 leukocytes 1 % 0-10 Automated blood basophils/100 leukocytes 0 % 0-10 Blood neutrophils automated count (number/volume) 10.4 10*3 1.8-7.8 Blood lymphocytes automated count (number/volume) 1.0 10*3 1.0-4.0 Blood monocytes automated count (number/volume) 0. 7 10*3 0.0-1.0 Automated eosinophil count 0.1 10*3/uL 0 .0-0.3 Automated blood basophil count (count/volume) 0.0 10*3/uL 0.0-0.1 Whole blood basic metabolic panel - 11/06 11/22 04:50 Serum or plasma sodium measurement (moles/volume) 131 mmol/L 135-145 Serum or plasma potassium measurement (moles/volume) 3.4 mmol/L 3.6-5.0 Serum or plasma chloride measurement (moles/volume) 98 mmol/L 98-107 Carbon dioxide 23 mmol/L 21-32 Serum or plasma anion gap determination (moles/volume) 10 mmol/L 5-14 Serum or plasma urea nitrogen measurement (mass/volume ) 17 mg/dL 7-18 Serum or plasma creatinine measurement (mass/volume) 0.69 mg/dL 0.60-1.30 Serum or plasma urea nitrogen/creatinine mass ratio 25 NRG Serum or plasma creatinine measurement w ith calculation of estimated glomerular filtration rate > NRG Serum or plasma glucose measurement (mass/volume) 71 mg/dL 70-105 Serum or plasma calcium measurement (mass/volume) 7.4 mg/dL 8.5-10.1 Serum or plasma phosphate measurement (m ass/volume) - 11/24/16 04:50 Serum or plasma phosphate measurement (mass/volume) 2.1 mg/dL 2.3-4.7 Magnesium - 11/24/16 04:50 Magnesium 1.5 mg/dL 1.8-2.4 Serum or plasma albumin measurement (mas s/volume) - 11/24/16 04:50 Serum or plasma albumin measurement (mass/volume) 2.2 g/dL 3.2-4.5 Serum or plasma triglyceride measurement (mass/volume) - 11/24/16 04:50 Serum or plasma triglyceride measurement (mass/volume) 123 mg/dL <150 Serum or plasma lithium measurement (mol es/volume) - 11/24/16 10:45 Serum or plasma prealbumin measurement (mass/volume) 5.0 mg/dL 18.0-35.7 Capillary blood glucose measurement by g lucometer (mass/volume) - 11/25/16 00:15 Capillary blood glucose measurement by glucometer (mas s/volume) 138 mg/dL 70-110 Complete blood count (CBC) with automate d white blood cell (WBC) differential - 11/25/16 03:45 Blood leukocytes automated count (number/volume) 11.6 10*3/uL 4.3-11.0 Blood erythrocytes automated count (number/volume) 3.18 10*6/uL 4.35-5.85 Venous blood hemoglobin measurement (mass/volume) 8.8 g/dL 11.5-16.0 Blood hematocrit (volume fraction) 28 % 35-52 Automated erythrocyte mean corpuscular volume 87 [ foz_us] 80-99 Automated erythrocyte mean corpuscular h emoglobin (mass per erythrocyte) 28 pg 25-34 Automated erythrocyte mean corpuscular h emoglobin concentration measurement (mass/volume) 32 g/dL 32-36 Automated erythrocyte distribution width ratio 18. 7 % 10.0- 14.5 Automated blood platelet count (count/volume) 154 10*3/uL 130-400 Automated blood platelet mean volume measurement 10.3 [foz_us] 7.4-10.4 Automated blood neutrophils/100 leukocytes 85 % 42-75 Automated blood lymphocytes/100 leukocytes 7 % 12-44 Blood monocytes/100 leukocytes 7 % 0-12 Automated blood eosinophils/100 leukocytes 1 % 0-10 Automated blood basophils/100 leukocytes 0 % 0-10 Blood neutrophils automated count (number/volume) 9.9 10*3 1.8-7.8 Blood lymphocytes automated count (number/volume) 0.8 10*3 1.0-4.0 Blood monocytes automated count (number/volume) 0. 8 10*3 0.0-1.0 Automated eosinophil count 0.1 10*3/uL 0 .0-0.3 Automated blood basophil count (count/volume) 0.0 10*3/uL 0.0-0.1 Whole blood basic metabolic panel - 11/07 03:45 Serum or plasma sodium measurement (moles/volume) 135 mmol/L 135-145 Serum or plasma potassium measurement (moles/volume) 3.4 mmol/L 3.6-5.0 Serum or plasma chloride measurement (moles/volume) 101 mmol/L 98-107 Carbon dioxide 26 mmol/L 21-32 Serum or plasma anion gap determination (moles/volume) 8 mmol/L 5-14 Serum or plasma urea nitrogen measurement (mass/volume ) 15 mg/dL 7-18 Serum or plasma creatinine measurement (mass/volume) 0.64 mg/dL 0.60-1.30 Serum or plasma urea nitrogen/creatinine mass ratio 23 NRG Serum or plasma creatinine measurement w ith calculation of estimated glomerular filtration rate > NRG Serum or plasma glucose measurement (mass/volume) 170 mg/dL 70-105 Serum or plasma calcium measurement (mass/volume) 7.5 mg/dL 8.5-10.1 Serum or plasma phosphate measurement (m ass/volume) - 11/25/16 03:45 Serum or plasma phosphate measurement (mass/volume) 2.2 mg/dL 2.3-4.7 Magnesium - 11/25/16 03:45 Magnesium 1.8 mg/dL 1.8-2.4 Vancomycin trough - 11/25/16 03:45 Vancomycin trough 8.7 ug/mL 10.0-20.0 Arterial blood gas measurement - 7 08:07 Blood pCO2 47 mm[Hg] 35-45 Blood pO2 99 mm[Hg] 79-93 Arterial blood bicarbonate measurement (moles/volume) 30 mmol/L 23-27 Arterial blood base excess by calculation 5.4 mmol /L -2.5-2.5 Arterial blood oxygen saturation measurement 99 % 94-100 * Inhaled oxygen flow rate 4L NRG Arterial blood pH measurement with patient temperature correction 7.42 7.37-7.43 Arterial blood carbon dioxide, total measurement (mole s/volume) 30.9 mmol/L 21.0-31.0 Body site LRAD NRG Assessment of wrist artery patency prior to arterial p uncture YES-POS NRG Setting of ventilation mode NO NR G Measurement of body temperature 100.8 NRG Complete blood count (CBC) with automate d white blood cell (WBC) differential - 11/26/16 04:55 Blood leukocytes automated count (number/volume) 11.2 10*3/uL 4.3-11.0 Blood erythrocytes automated count (number/volume) 3.21 10*6/uL 4.35-5.85 Venous blood hemoglobin measurement (mass/volume) 8.9 g/dL 11.5-16.0 Blood hematocrit (volume fraction) 28 % 35-52 Automated erythrocyte mean corpuscular volume 86 [ foz_us] 80-99 Automated erythrocyte mean corpuscular h emoglobin (mass per erythrocyte) 28 pg 25-34 Automated erythrocyte mean corpuscular h emoglobin concentration measurement (mass/volume) 32 g/dL 32-36 Automated erythrocyte distribution width ratio 18. 8 % 10.0- 14.5 Automated blood platelet count (count/volume) 163 10*3/uL 130-400 Automated blood platelet mean volume measurement 10.8 [foz_us] 7.4-10.4 Automated blood neutrophils/100 leukocytes 78 % 42-75 Automated blood lymphocytes/100 leukocytes 10 % 12-44 Blood monocytes/100 leukocytes 11 % 0-12 Automated blood eosinophils/100 leukocytes 1 % 0-10 Automated blood basophils/100 leukocytes 0 % 0-10 Blood neutrophils automated count (number/volume) 8.7 10*3 1.8-7.8 Blood lymphocytes automated count (number/volume) 1.1 10*3 1.0-4.0 Blood monocytes automated count (number/volume) 1. 3 10*3 0.0-1.0 Automated eosinophil count 0.1 10*3/uL 0 .0-0.3 Automated blood basophil count (count/volume) 0.0 10*3/uL 0.0-0.1 Whole blood basic metabolic panel - 11/07 03/24 04:55 Serum or plasma sodium measurement (moles/volume) 137 mmol/L 135-145 Serum or plasma potassium measurement (moles/volume) 4.0 mmol/L 3.6-5.0 Serum or plasma chloride measurement (moles/volume) 99 mmol/L 98-107 Carbon dioxide 30 mmol/L 21-32 Serum or plasma anion gap determination (moles/volume) 8 mmol/L 5-14 Serum or plasma urea nitrogen measurement (mass/volume ) 20 mg/dL 7-18 Serum or plasma creatinine measurement (mass/volume) 0.60 mg/dL 0.60-1.30 Serum or plasma urea nitrogen/creatinine mass ratio 33 NRG Serum or plasma creatinine measurement w ith calculation of estimated glomerular filtration rate > NRG Serum or plasma glucose measurement (mass/volume) 130 mg/dL 70-105 Serum or plasma calcium measurement (mass/volume) 7.5 mg/dL 8.5-10.1 Serum or plasma phosphate measurement (m ass/volume) - 11/26/16 04:55 Serum or plasma phosphate measurement (mass/volume) 2.4 mg/dL 2.3-4.7 Magnesium - 11/26/16 04:55 Magnesium 1.7 mg/dL 1.8-2.4 Complete blood count (CBC) with automate d white blood cell (WBC) differential - 11/27/16 05:10 Blood leukocytes automated count (number/volume) 12.5 10*3/uL 4.3-11.0 Blood erythrocytes automated count (number/volume) 3.15 10*6/uL 4.35-5.85 Venous blood hemoglobin measurement (mass/volume) 8.7 g/dL 11.5-16.0 Blood hematocrit (volume fraction) 27 % 35-52 Automated erythrocyte mean corpuscular volume 87 [ foz_us] 80-99 Automated erythrocyte mean corpuscular h emoglobin (mass per erythrocyte) 28 pg 25-34 Automated erythrocyte mean corpuscular h emoglobin concentration measurement (mass/volume) 32 g/dL 32-36 Automated erythrocyte distribution width ratio 19. 3 % 10.0- 14.5 Automated blood platelet count (count/volume) 181 10*3/uL 130-400 Automated blood platelet mean volume measurement 10.9 [foz_us] 7.4-10.4 Automated blood neutrophils/100 leukocytes 81 % 42-75 Automated blood lymphocytes/100 leukocytes 8 % 12-44 Blood monocytes/100 leukocytes 10 % 0-12 Automated blood eosinophils/100 leukocytes 1 % 0-10 Automated blood basophils/100 leukocytes 0 % 0-10 Blood neutrophils automated count (number/volume) 10.0 10*3 1.8-7.8 Blood lymphocytes automated count (number/volume) 1.1 10*3 1.0-4.0 Blood monocytes automated count (number/volume) 1. 2 10*3 0.0-1.0 Automated eosinophil count 0.1 10*3/uL 0 .0-0.3 Automated blood basophil count (count/volume) 0.0 10*3/uL 0.0-0.1 Whole blood basic metabolic panel - 11/07 04/24 05:10 Serum or plasma sodium measurement (moles/volume) 138 mmol/L 135-145 Serum or plasma potassium measurement (moles/volume) 4.3 mmol/L 3.6-5.0 Serum or plasma chloride measurement (moles/volume) 99 mmol/L 98-107 Carbon dioxide 32 mmol/L 21-32 Serum or plasma anion gap determination (moles/volume) 7 mmol/L 5-14 Serum or plasma urea nitrogen measurement (mass/volume ) 25 mg/dL 7-18 Serum or plasma creatinine measurement (mass/volume) 0.61 mg/dL 0.60-1.30 Serum or plasma urea nitrogen/creatinine mass ratio 41 NRG Serum or plasma creatinine measurement w ith calculation of estimated glomerular filtration rate > NRG Serum or plasma glucose measurement (mass/volume) 116 mg/dL 70-105 Serum or plasma calcium measurement (mass/volume) 7.6 mg/dL 8.5-10.1 Serum or plasma phosphate measurement (m ass/volume) - 11/27/16 05:10 Serum or plasma phosphate measurement (mass/volume) 2.2 mg/dL 2.3-4.7 Magnesium - 11/27/16 05:10 Magnesium 2.1 mg/dL 1.8-2.4 Complete blood count (CBC) with automate d white blood cell (WBC) differential - 11/28/16 05:23 Blood leukocytes automated count (number/volume) 16.3 10*3/uL 4.3-11.0 Blood erythrocytes automated count (number/volume) 2.93 10*6/uL 4.35-5.85 Venous blood hemoglobin measurement (mass/volume) 8.2 g/dL 11.5-16.0 Blood hematocrit (volume fraction) 26 % 35-52 Automated erythrocyte mean corpuscular volume 87 [ foz_us] 80-99 Automated erythrocyte mean corpuscular h emoglobin (mass per erythrocyte) 28 pg 25-34 Automated erythrocyte mean corpuscular h emoglobin concentration measurement (mass/volume) 32 g/dL 32-36 Automated erythrocyte distribution width ratio 19. 4 % 10.0- 14.5 Automated blood platelet count (count/volume) 204 10*3/uL 130-400 Automated blood platelet mean volume measurement 10.5 [foz_us] 7.4-10.4 Automated blood neutrophils/100 leukocytes 81 % 42-75 Automated blood lymphocytes/100 leukocytes 6 % 12-44 Blood monocytes/100 leukocytes 11 % 0-12 Automated blood eosinophils/100 leukocytes 1 % 0-10 Automated blood basophils/100 leukocytes 0 % 0-10 Blood neutrophils automated count (number/volume) 13.2 10*3 1.8-7.8 Blood lymphocytes automated count (number/volume) 1.0 10*3 1.0-4.0 Blood monocytes automated count (number/volume) 1. 8 10*3 0.0-1.0 Automated eosinophil count 0.2 10*3/uL 0 .0-0.3 Automated blood basophil count (count/volume) 0.1 10*3/uL 0.0-0.1 Whole blood basic metabolic panel - 11/07 05/22 05:23 Serum or plasma sodium measurement (moles/volume) 137 mmol/L 135-145 Serum or plasma potassium measurement (moles/volume) 4.5 mmol/L 3.6-5.0 Serum or plasma chloride measurement (moles/volume) 100 mmol/L 98-107 Carbon dioxide 31 mmol/L 21-32 Serum or plasma anion gap determination (moles/volume) 6 mmol/L 5-14 Serum or plasma urea nitrogen measurement (mass/volume ) 30 mg/dL 7-18 Serum or plasma creatinine measurement (mass/volume) 0.71 mg/dL 0.60-1.30 Serum or plasma urea nitrogen/creatinine mass ratio 42 NRG Serum or plasma creatinine measurement w ith calculation of estimated glomerular filtration rate > NRG Serum or plasma glucose measurement (mass/volume) 136 mg/dL 70-105 Serum or plasma calcium measurement (mass/volume) 7.4 mg/dL 8.5-10.1 Serum or plasma phosphate measurement (m ass/volume) - 11/28/16 05:23 Serum or plasma phosphate measurement (mass/volume) 3.4 mg/dL 2.3-4.7 Magnesium - 11/28/16 05:23 Magnesium 2.1 mg/dL 1.8-2.4 Complete blood count (CBC) with automate d white blood cell (WBC) differential - 11/29/16 05:30 Blood leukocytes automated count (number/volume) 20.3 10*3/uL 4.3-11.0 Blood erythrocytes automated count (number/volume) 2.92 10*6/uL 4.35-5.85 Venous blood hemoglobin measurement (mass/volume) 8.1 g/dL 11.5-16.0 Blood hematocrit (volume fraction) 25 % 35-52 Automated erythrocyte mean corpuscular volume 86 [ foz_us] 80-99 Automated erythrocyte mean corpuscular h emoglobin (mass per erythrocyte) 28 pg 25-34 Automated erythrocyte mean corpuscular h emoglobin concentration measurement (mass/volume) 32 g/dL 32-36 Automated erythrocyte distribution width ratio 19. 2 % 10.0- 14.5 Automated blood platelet count (count/volume) 244 10*3/uL 130-400 Automated blood platelet mean volume measurement 10.3 [foz_us] 7.4-10.4 Automated blood neutrophils/100 leukocytes 87 % 42-75 Automated blood lymphocytes/100 leukocytes 5 % 12-44 Blood monocytes/100 leukocytes 8 % 0-12 Automated blood eosinophils/100 leukocytes 0 % 0-10 Automated blood basophils/100 leukocytes 0 % 0-10 Blood neutrophils automated count (number/volume) 17.6 10*3 1.8-7.8 Blood lymphocytes automated count (number/volume) 1.0 10*3 1.0-4.0 Blood monocytes automated count (number/volume) 1. 6 10*3 0.0-1.0 Automated eosinophil count 0.1 10*3/uL 0 .0-0.3 Automated blood basophil count (count/volume) 0.0 10*3/uL 0.0-0.1 Whole blood basic metabolic panel - 11/07 06/22 05:30 Serum or plasma sodium measurement (moles/volume) 137 mmol/L 135-145 Serum or plasma potassium measurement (moles/volume) 4.6 mmol/L 3.6-5.0 Serum or plasma chloride measurement (moles/volume) 102 mmol/L 98-107 Carbon dioxide 28 mmol/L 21-32 Serum or plasma anion gap determination (moles/volume) 7 mmol/L 5-14 Serum or plasma urea nitrogen measurement (mass/volume ) 32 mg/dL 7-18 Serum or plasma creatinine measurement (mass/volume) 0.74 mg/dL 0.60-1.30 Serum or plasma urea nitrogen/creatinine mass ratio 43 NRG Serum or plasma creatinine measurement w ith calculation of estimated glomerular filtration rate > NRG Serum or plasma glucose measurement (mass/volume) 137 mg/dL 70-105 Serum or plasma calcium measurement (mass/volume) 7.4 mg/dL 8.5-10.1 Serum or plasma phosphate measurement (m ass/volume) - 11/29/16 05:30 Serum or plasma phosphate measurement (mass/volume) 3.5 mg/dL 2.3-4.7 Magnesium - 11/29/16 05:30 Magnesium 2.1 mg/dL 1.8-2.4 Complete urinalysis with reflex to cultu re - 11/29/16 11:20 Urine color determination YELLOW NRG Urine clarity determination CLEAR NR G Urine pH measurement by test strip 6 5-9 Specific gravity of urine by test strip 1.020 1.016-1.022 Urine protein assay by test strip, semi-quantitative 2+ NEGATIVE Urine glucose detection by automated test strip NE GATIVE NEGATIVE Erythrocytes detection in urine sediment by light micr oscopy 2+ NEGATIVE Urine ketones detection by automated test strip NE GATIVE NEGATIVE Urine nitrite detection by test strip NEGATIVE NEGATIVE Urine total bilirubin detection by test strip NEGA TIVE NEGATIVE Urine urobilinogen measurement by automated test strip (mass/volume) NORMAL NORMAL Urine leukocyte esterase detection by dipstick 1+ NEGATIVE Automated urine sediment erythrocyte cou nt by microscopy (number/high power field) RARE NRG Automated urine sediment leukocyte count by microscopy (number/high power field) [HPF] NRG Bacteria detection in urine sediment by light microsco py MODERATE NRG Squamous epithelial cells detection in u rine sediment by light microscopy RARE NRG Crystals detection in urine sediment by light microsco py NONE NRG Casts detection in urine sediment by light microscopy PRESENT NRG Mucus detection in urine sediment by light microscopy NEGATIVE NRG Complete urinalysis with reflex to culture YES NRG Yeast detection in urine sediment by light microscopy FEW NRG Granular casts detection in urine sediment by light mi croscopy 0-2 NRG Bacterial urine culture - 11/29/16 11:20 Bacterial urine culture [id number] NRG COLONY COUNT 10,000/ML - 100,000/ML NRG Complete blood count (CBC) with automate d white blood cell (WBC) differential - 11/30/16 05:09 Blood leukocytes automated count (number/volume) 19.8 10*3/uL 4.3-11.0 Blood erythrocytes automated count (number/volume) 2.85 10*6/uL 4.35-5.85 Venous blood hemoglobin measurement (mass/volume) 7.8 g/dL 11.5-16.0 Blood hematocrit (volume fraction) 25 % 35-52 Automated erythrocyte mean corpuscular volume 88 [ foz_us] 80-99 Automated erythrocyte mean corpuscular h emoglobin (mass per erythrocyte) 27 pg 25-34 Automated erythrocyte mean corpuscular h emoglobin concentration measurement (mass/volume) 31 g/dL 32-36 Automated erythrocyte distribution width ratio 19. 5 % 10.0- 14.5 Automated blood platelet count (count/volume) 285 10*3/uL 130-400 Automated blood platelet mean volume measurement 10.6 [foz_us] 7.4-10.4 Automated blood neutrophils/100 leukocytes 82 % 42-75 Automated blood lymphocytes/100 leukocytes 5 % 12-44 Blood monocytes/100 leukocytes 11 % 0-12 Automated blood eosinophils/100 leukocytes 2 % 0-10 Automated blood basophils/100 leukocytes 0 % 0-10 Blood neutrophils automated count (number/volume) 16.3 10*3 1.8-7.8 Blood lymphocytes automated count (number/volume) 1.0 10*3 1.0-4.0 Blood monocytes automated count (number/volume) 2. 1 10*3 0.0-1.0 Automated eosinophil count 0.4 10*3/uL 0 .0-0.3 Automated blood basophil count (count/volume) 0.0 10*3/uL 0.0-0.1 Whole blood basic metabolic panel - 11/07 07/22 05:09 Serum or plasma sodium measurement (moles/volume) 136 mmol/L 135-145 Serum or plasma potassium measurement (moles/volume) 4.8 mmol/L 3.6-5.0 Serum or plasma chloride measurement (moles/volume) 103 mmol/L 98-107 Carbon dioxide 27 mmol/L 21-32 Serum or plasma anion gap determination (moles/volume) 6 mmol/L 5-14 Serum or plasma urea nitrogen measurement (mass/volume ) 37 mg/dL 7-18 Serum or plasma creatinine measurement (mass/volume) 0.72 mg/dL 0.60-1.30 Serum or plasma urea nitrogen/creatinine mass ratio 51 NRG Serum or plasma creatinine measurement w ith calculation of estimated glomerular filtration rate > NRG Serum or plasma glucose measurement (mass/volume) 103 mg/dL 70-105 Serum or plasma calcium measurement (mass/volume) 7.4 mg/dL 8.5-10.1 Serum or plasma phosphate measurement (m ass/volume) - 11/30/16 05:09 Serum or plasma phosphate measurement (mass/volume) 3.9 mg/dL 2.3-4.7 Magnesium - 11/30/16 05:09 Magnesium 2.2 mg/dL 1.8-2.4 Serum or plasma lithium measurement (mol es/volume) - 11/30/16 05:09 BNP level 1031.5 pg/mL <100.0 Complete blood count (CBC) with automate d white blood cell (WBC) differential - 12/01/16 05:30 Blood leukocytes automated count (number/volume) 16.6 10*3/uL 4.3-11.0 Blood erythrocytes automated count (number/volume) 2.76 10*6/uL 4.35-5.85 Venous blood hemoglobin measurement (mass/volume) 7.5 g/dL 11.5-16.0 Blood hematocrit (volume fraction) 24 % 35-52 Automated erythrocyte mean corpuscular volume 86 [ foz_us] 80-99 Automated erythrocyte mean corpuscular h emoglobin (mass per erythrocyte) 27 pg 25-34 Automated erythrocyte mean corpuscular h emoglobin concentration measurement (mass/volume) 32 g/dL 32-36 Automated erythrocyte distribution width ratio 19. 2 % 10.0- 14.5 Automated blood platelet count (count/volume) 308 10*3/uL 130-400 Automated blood platelet mean volume measurement 10.3 [foz_us] 7.4-10.4 Automated blood neutrophils/100 leukocytes 78 % 42-75 Automated blood lymphocytes/100 leukocytes 7 % 12-44 Blood monocytes/100 leukocytes 13 % 0-12 Automated blood eosinophils/100 leukocytes 2 % 0-10 Automated blood basophils/100 leukocytes 0 % 0-10 Blood neutrophils automated count (number/volume) 13.0 10*3 1.8-7.8 Blood lymphocytes automated count (number/volume) 1.2 10*3 1.0-4.0 Blood monocytes automated count (number/volume) 2. 1 10*3 0.0-1.0 Automated eosinophil count 0.3 10*3/uL 0 .0-0.3 Automated blood basophil count (count/volume) 0.0 10*3/uL 0.0-0.1 Whole blood basic metabolic panel - 11/07 08/22 05:30 Serum or plasma sodium measurement (moles/volume) 137 mmol/L 135-145 Serum or plasma potassium measurement (moles/volume) 4.4 mmol/L 3.6-5.0 Serum or plasma chloride measurement (moles/volume) 103 mmol/L 98-107 Carbon dioxide 25 mmol/L 21-32 Serum or plasma anion gap determination (moles/volume) 9 mmol/L 5-14 Serum or plasma urea nitrogen measurement (mass/volume ) 37 mg/dL 7-18 Serum or plasma creatinine measurement (mass/volume) 0.72 mg/dL 0.60-1.30 Serum or plasma urea nitrogen/creatinine mass ratio 51 NRG Serum or plasma creatinine measurement w ith calculation of estimated glomerular filtration rate > NRG Serum or plasma glucose measurement (mass/volume) 108 mg/dL 70-105 Serum or plasma calcium measurement (mass/volume) 7.5 mg/dL 8.5-10.1 Serum or plasma phosphate measurement (m ass/volume) - 12/01/16 05:30 Serum or plasma phosphate measurement (mass/volume) 3.8 mg/dL 2.3-4.7 Magnesium - 12/01/16 05:30 Magnesium 2.1 mg/dL 1.8-2.4 RED CELLS LEUKO REDUCED AS1 - 12/01/16 0 5:30 RED CELLS LEUKO REDUCED AS1 T RANSFUSED 12/01/16 1024 NR Blood type T Indirect antibody screen pa aroldo - 12/01/16 05:30 ABO+Rh group AP NR Transfusion band number [id number] NR Blood group antibody screen NEGATIVE NR G Complete blood count (CBC) with automate d white blood cell (WBC) differential - 12/02/16 06:50 Blood leukocytes automated count (number/volume) 14.2 10*3/uL 4.3-11.0 Blood erythrocytes automated count (number/volume) 3.10 10*6/uL 4.35-5.85 Venous blood hemoglobin measurement (mass/volume) 8.6 g/dL 11.5-16.0 Blood hematocrit (volume fraction) 26 % 35-52 Automated erythrocyte mean corpuscular volume 84 [ foz_us] 80-99 Automated erythrocyte mean corpuscular h emoglobin (mass per erythrocyte) 28 pg 25-34 Automated erythrocyte mean corpuscular h emoglobin concentration measurement (mass/volume) 33 g/dL 32-36 Automated erythrocyte distribution width ratio 18. 6 % 10.0- 14.5 Automated blood platelet count (count/volume) 336 10*3/uL 130-400 Automated blood platelet mean volume measurement 10.7 [foz_us] 7.4-10.4 Automated blood neutrophils/100 leukocytes 77 % 42-75 Automated blood lymphocytes/100 leukocytes 8 % 12-44 Blood monocytes/100 leukocytes 14 % 0-12 Automated blood eosinophils/100 leukocytes 1 % 0-10 Automated blood basophils/100 leukocytes 1 % 0-10 Blood neutrophils automated count (number/volume) 10.9 10*3 1.8-7.8 Blood lymphocytes automated count (number/volume) 1.1 10*3 1.0-4.0 Blood monocytes automated count (number/volume) 2. 0 10*3 0.0-1.0 Automated eosinophil count 0.1 10*3/uL 0 .0-0.3 Automated blood basophil count (count/volume) 0.1 10*3/uL 0.0-0.1 Whole blood basic metabolic panel - 11/07 09/21 06:50 Serum or plasma sodium measurement (moles/volume) 136 mmol/L 135-145 Serum or plasma potassium measurement (moles/volume) 4.4 mmol/L 3.6-5.0 Serum or plasma chloride measurement (moles/volume) 99 mmol/L 98-107 Carbon dioxide 30 mmol/L 21-32 Serum or plasma anion gap determination (moles/volume) 7 mmol/L 5-14 Serum or plasma urea nitrogen measurement (mass/volume ) 30 mg/dL 7-18 Serum or plasma creatinine measurement (mass/volume) 0.74 mg/dL 0.60-1.30 Serum or plasma urea nitrogen/creatinine mass ratio 41 NRG Serum or plasma creatinine measurement w ith calculation of estimated glomerular filtration rate > NRG Serum or plasma glucose measurement (mass/volume) 88 mg/dL 70-105 Serum or plasma calcium measurement (mass/volume) 7.8 mg/dL 8.5-10.1 Serum or plasma phosphate measurement (m ass/volume) - 12/02/16 06:50 Serum or plasma phosphate measurement (mass/volume) 3.8 mg/dL 2.3-4.7 Magnesium - 12/02/16 06:50 Magnesium 1.8 mg/dL 1.8-2.4 Comprehensive metabolic panel - 12/03/16 05:20 Serum or plasma sodium measurement (moles/volume) 135 mmol/L 135-145 Serum or plasma potassium measurement (moles/volume) 3.7 mmol/L 3.6-5.0 Serum or plasma chloride measurement (moles/volume) 97 mmol/L 98-107 Carbon dioxide 29 mmol/L 21-32 Serum or plasma anion gap determination (moles/volume) 9 mmol/L 5-14 Serum or plasma urea nitrogen measurement (mass/volume ) 23 mg/dL 7-18 Serum or plasma creatinine measurement (mass/volume) 0.72 mg/dL 0.60-1.30 Serum or plasma urea nitrogen/creatinine mass ratio 32 NRG Serum or plasma creatinine measurement w ith calculation of estimated glomerular filtration rate > NRG Serum or plasma glucose measurement (mass/volume) 100 mg/dL 70-105 Serum or plasma calcium measurement (mass/volume) 7.7 mg/dL 8.5-10.1 Serum or plasma total bilirubin measurement (mass/volu me) 0.3 mg/dL 0.1-1.0 Serum or plasma alkaline phosphatase brayden surement (enzymatic activity/volume) 48 U/L 40-136 Serum or plasma aspartate aminotransfera se measurement (enzymatic activity/volume) 15 U/L 5-34 Serum or plasma alanine aminotransferase measurement (enzymatic activity/volume) 9 U/L 0-55 Serum or plasma protein measurement (mass/volume) 4.6 g/dL 6.4-8.2 Serum or plasma albumin measurement (mass/volume) 2.1 g/dL 3.2-4.5 Serum or plasma lithium measurement (mol es/volume) - 12/03/16 07:54 BNP level 1149.2 pg/mL <100.0 Complete blood count (CBC) with automate d white blood cell (WBC) differential - 12/04/16 05:50 Blood leukocytes automated count (number/volume) 12.1 10*3/uL 4.3-11.0 Blood erythrocytes automated count (number/volume) 3.02 10*6/uL 4.35-5.85 Venous blood hemoglobin measurement (mass/volume) 8.3 g/dL 11.5-16.0 Blood hematocrit (volume fraction) 26 % 35-52 Automated erythrocyte mean corpuscular volume 85 [ foz_us] 80-99 Automated erythrocyte mean corpuscular h emoglobin (mass per erythrocyte) 28 pg 25-34 Automated erythrocyte mean corpuscular h emoglobin concentration measurement (mass/volume) 32 g/dL 32-36 Automated erythrocyte distribution width ratio 18. 6 % 10.0- 14.5 Automated blood platelet count (count/volume) 435 10*3/uL 130-400 Automated blood platelet mean volume measurement 10.2 [foz_us] 7.4-10.4 Automated blood neutrophils/100 leukocytes 75 % 42-75 Automated blood lymphocytes/100 leukocytes 10 % 12-44 Blood monocytes/100 leukocytes 13 % 0-12 Automated blood eosinophils/100 leukocytes 1 % 0-10 Automated blood basophils/100 leukocytes 0 % 0-10 Blood neutrophils automated count (number/volume) 9.2 10*3 1.8-7.8 Blood lymphocytes automated count (number/volume) 1.2 10*3 1.0-4.0 Blood monocytes automated count (number/volume) 1. 6 10*3 0.0-1.0 Automated eosinophil count 0.1 10*3/uL 0 .0-0.3 Automated blood basophil count (count/volume) 0.0 10*3/uL 0.0-0.1 Comprehensive metabolic panel - 12/04/16 05:50 Serum or plasma sodium measurement (moles/volume) 137 mmol/L 135-145 Serum or plasma potassium measurement (moles/volume) 3.5 mmol/L 3.6-5.0 Serum or plasma chloride measurement (moles/volume) 97 mmol/L 98-107 Carbon dioxide 32 mmol/L 21-32 Serum or plasma anion gap determination (moles/volume) 8 mmol/L 5-14 Serum or plasma urea nitrogen measurement (mass/volume ) 17 mg/dL 7-18 Serum or plasma creatinine measurement (mass/volume) 0.71 mg/dL 0.60-1.30 Serum or plasma urea nitrogen/creatinine mass ratio 24 NRG Serum or plasma creatinine measurement w ith calculation of estimated glomerular filtration rate > NRG Serum or plasma glucose measurement (mass/volume) 107 mg/dL 70-105 Serum or plasma calcium measurement (mass/volume) 7.7 mg/dL 8.5-10.1 Serum or plasma total bilirubin measurement (mass/volu me) 0.3 mg/dL 0.1-1.0 Serum or plasma alkaline phosphatase brayden surement (enzymatic activity/volume) 55 U/L 40-136 Serum or plasma aspartate aminotransfera se measurement (enzymatic activity/volume) 14 U/L 5-34 Serum or plasma alanine aminotransferase measurement (enzymatic activity/volume) 6 U/L 0-55 Serum or plasma protein measurement (mass/volume) 4.7 g/dL 6.4-8.2 Serum or plasma albumin measurement (mass/volume) 2.1 g/dL 3.2-4.5 Complete blood count (CBC) with automate d white blood cell (WBC) differential - 12/05/16 05:47 Blood leukocytes automated count (number/volume) 10.8 10*3/uL 4.3-11.0 Blood erythrocytes automated count (number/volume) 2.93 10*6/uL 4.35-5.85 Venous blood hemoglobin measurement (mass/volume) 8.1 g/dL 11.5-16.0 Blood hematocrit (volume fraction) 25 % 35-52 Automated erythrocyte mean corpuscular volume 86 [ foz_us] 80-99 Automated erythrocyte mean corpuscular h emoglobin (mass per erythrocyte) 28 pg 25-34 Automated erythrocyte mean corpuscular h emoglobin concentration measurement (mass/volume) 32 g/dL 32-36 Automated erythrocyte distribution width ratio 18. 7 % 10.0- 14.5 Automated blood platelet count (count/volume) 438 10*3/uL 130-400 Automated blood platelet mean volume measurement 10.2 [foz_us] 7.4-10.4 Automated blood neutrophils/100 leukocytes 73 % 42-75 Automated blood lymphocytes/100 leukocytes 11 % 12-44 Blood monocytes/100 leukocytes 14 % 0-12 Automated blood eosinophils/100 leukocytes 2 % 0-10 Automated blood basophils/100 leukocytes 0 % 0-10 Blood neutrophils automated count (number/volume) 7.8 10*3 1.8-7.8 Blood lymphocytes automated count (number/volume) 1.2 10*3 1.0-4.0 Blood monocytes automated count (number/volume) 1. 5 10*3 0.0-1.0 Automated eosinophil count 0.2 10*3/uL 0 .0-0.3 Automated blood basophil count (count/volume) 0.0 10*3/uL 0.0-0.1 Serum or plasma phosphate measurement (m ass/volume) - 12/05/16 05:47 Serum or plasma phosphate measurement (mass/volume) 2.9 mg/dL 2.3-4.7 Whole blood basic metabolic panel - 11/08 05:47 Serum or plasma sodium measurement (moles/volume) 135 mmol/L 135-145 Serum or plasma potassium measurement (moles/volume) 3.9 mmol/L 3.6-5.0 Serum or plasma chloride measurement (moles/volume) 97 mmol/L 98-107 Carbon dioxide 30 mmol/L 21-32 Serum or plasma anion gap determination (moles/volume) 8 mmol/L 5-14 Serum or plasma urea nitrogen measurement (mass/volume ) 15 mg/dL 7-18 Serum or plasma creatinine measurement (mass/volume) 0.73 mg/dL 0.60-1.30 Serum or plasma urea nitrogen/creatinine mass ratio 21 NRG Serum or plasma creatinine measurement w ith calculation of estimated glomerular filtration rate > NRG Serum or plasma glucose measurement (mass/volume) 108 mg/dL 70-105 Serum or plasma calcium measurement (mass/volume) 7.6 mg/dL 8.5-10.1 Magnesium - 12/05/16 05:47 Magnesium 1.4 mg/dL 1.8-2.4 Complete blood count (CBC) with automate d white blood cell (WBC) differential - 12/06/16 06:43 Blood leukocytes automated count (number/volume) 11.2 10*3/uL 4.3-11.0 Blood erythrocytes automated count (number/volume) 3.08 10*6/uL 4.35-5.85 Venous blood hemoglobin measurement (mass/volume) 8.5 g/dL 11.5-16.0 Blood hematocrit (volume fraction) 26 % 35-52 Automated erythrocyte mean corpuscular volume 85 [ foz_us] 80-99 Automated erythrocyte mean corpuscular h emoglobin (mass per erythrocyte) 28 pg 25-34 Automated erythrocyte mean corpuscular h emoglobin concentration measurement (mass/volume) 32 g/dL 32-36 Automated erythrocyte distribution width ratio 18. 6 % 10.0- 14.5 Automated blood platelet count (count/volume) 471 10*3/uL 130-400 Automated blood platelet mean volume measurement 10.2 [foz_us] 7.4-10.4 Automated blood neutrophils/100 leukocytes 76 % 42-75 Automated blood lymphocytes/100 leukocytes 11 % 12-44 Blood monocytes/100 leukocytes 13 % 0-12 Automated blood eosinophils/100 leukocytes 0 % 0-10 Automated blood basophils/100 leukocytes 0 % 0-10 Blood neutrophils automated count (number/volume) 8.5 10*3 1.8-7.8 Blood lymphocytes automated count (number/volume) 1.2 10*3 1.0-4.0 Blood monocytes automated count (number/volume) 1. 4 10*3 0.0-1.0 Automated eosinophil count 0.0 10*3/uL 0 .0-0.3 Automated blood basophil count (count/volume) 0.0 10*3/uL 0.0-0.1 Whole blood basic metabolic panel - 03/24 06:43 Serum or plasma sodium measurement (moles/volume) 135 mmol/L 135-145 Serum or plasma potassium measurement (moles/volume) 3.7 mmol/L 3.6-5.0 Serum or plasma chloride measurement (moles/volume) 99 mmol/L 98-107 Carbon dioxide 29 mmol/L 21-32 Serum or plasma anion gap determination (moles/volume) 7 mmol/L 5-14 Serum or plasma urea nitrogen measurement (mass/volume ) 11 mg/dL 7-18 Serum or plasma creatinine measurement (mass/volume) 0.68 mg/dL 0.60-1.30 Serum or plasma urea nitrogen/creatinine mass ratio 16 NRG Serum or plasma creatinine measurement w ith calculation of estimated glomerular filtration rate > NRG Serum or plasma glucose measurement (mass/volume) 108 mg/dL 70-105 Serum or plasma calcium measurement (mass/volume) 7.6 mg/dL 8.5-10.1 Serum or plasma phosphate measurement (m ass/volume) - 12/06/16 06:43 Serum or plasma phosphate measurement (mass/volume) 3.0 mg/dL 2.3-4.7 Magnesium - 12/06/16 06:43 Magnesium 1.7 mg/dL 1.8-2.4 Complete blood count (CBC) with automate d white blood cell (WBC) differential - 12/07/16 05:35 Blood leukocytes automated count (number/volume) 8.7 10*3/uL 4.3-11.0 Blood erythrocytes automated count (number/volume) 3.34 10*6/uL 4.35-5.85 Venous blood hemoglobin measurement (mass/volume) 9.2 g/dL 11.5-16.0 Blood hematocrit (volume fraction) 29 % 35-52 Automated erythrocyte mean corpuscular volume 86 [ foz_us] 80-99 Automated erythrocyte mean corpuscular h emoglobin (mass per erythrocyte) 28 pg 25-34 Automated erythrocyte mean corpuscular h emoglobin concentration measurement (mass/volume) 32 g/dL 32-36 Automated erythrocyte distribution width ratio 18. 7 % 10.0- 14.5 Automated blood platelet count (count/volume) 490 10*3/uL 130-400 Automated blood platelet mean volume measurement 10.0 [foz_us] 7.4-10.4 Automated blood neutrophils/100 leukocytes 88 % 42-75 Automated blood lymphocytes/100 leukocytes 9 % 12-44 Blood monocytes/100 leukocytes 3 % 0-12 Automated blood eosinophils/100 leukocytes 0 % 0-10 Automated blood basophils/100 leukocytes 0 % 0-10 Blood neutrophils automated count (number/volume) 7.7 10*3 1.8-7.8 Blood lymphocytes automated count (number/volume) 0.7 10*3 1.0-4.0 Blood monocytes automated count (number/volume) 0. 3 10*3 0.0-1.0 Automated eosinophil count 0.0 10*3/uL 0 .0-0.3 Automated blood basophil count (count/volume) 0.0 10*3/uL 0.0-0.1 Whole blood basic metabolic panel - 04/24 05:35 Serum or plasma sodium measurement (moles/volume) 136 mmol/L 135-145 Serum or plasma potassium measurement (moles/volume) 4.2 mmol/L 3.6-5.0 Serum or plasma chloride measurement (moles/volume) 100 mmol/L 98-107 Carbon dioxide 25 mmol/L 21-32 Serum or plasma anion gap determination (moles/volume) 11 mmol/L 5-14 Serum or plasma urea nitrogen measurement (mass/volume ) 11 mg/dL 7-18 Serum or plasma creatinine measurement (mass/volume) 0.69 mg/dL 0.60-1.30 Serum or plasma urea nitrogen/creatinine mass ratio 16 NRG Serum or plasma creatinine measurement w ith calculation of estimated glomerular filtration rate > NRG Serum or plasma glucose measurement (mass/volume) 174 mg/dL 70-105 Serum or plasma calcium measurement (mass/volume) 8.0 mg/dL 8.5-10.1 Serum or plasma phosphate measurement (m ass/volume) - 12/07/16 05:35 Serum or plasma phosphate measurement (mass/volume) 3.2 mg/dL 2.3-4.7 Magnesium - 12/07/16 05:35 Magnesium 2.1 mg/dL 1.8-2.4 Arterial blood gas measurement - 7 07:21 Blood pCO2 54 mm[Hg] 35-45 Blood pO2 55 mm[Hg] 79-93 Arterial blood bicarbonate measurement (moles/volume) 29 mmol/L 23-27 Arterial blood base excess by calculation 4.1 mmol /L -2.5-2.5 Arterial blood oxygen saturation measurement 86 % 94-100 * Inhaled oxygen flow rate 15 L NRG Arterial blood pH measurement with patient temperature correction 7.36 7.37-7.43 Arterial blood carbon dioxide, total measurement (mole s/volume) 30.9 mmol/L 21.0-31.0 Body site LT RAD NRG Assessment of wrist artery patency prior to arterial p uncture YES-POS NRG Setting of ventilation mode NO NR G Measurement of body temperature 98.2 NRG Complete blood count (CBC) with automate d white blood cell (WBC) differential - 12/08/16 07:27 Blood leukocytes automated count (number/volume) 21.1 10*3/uL 4.3-11.0 Blood erythrocytes automated count (number/volume) 3.64 10*6/uL 4.35-5.85 Venous blood hemoglobin measurement (mass/volume) 10.0 g/dL 11.5-16.0 Blood hematocrit (volume fraction) 32 % 35-52 Automated erythrocyte mean corpuscular volume 87 [ foz_us] 80-99 Automated erythrocyte mean corpuscular h emoglobin (mass per erythrocyte) 28 pg 25-34 Automated erythrocyte mean corpuscular h emoglobin concentration measurement (mass/volume) 32 g/dL 32-36 Automated erythrocyte distribution width ratio 19. 1 % 10.0- 14.5 Automated blood platelet count (count/volume) 803 10*3/uL 130-400 Automated blood platelet mean volume measurement 9.7 [foz_us] 7.4-10.4 Automated blood neutrophils/100 leukocytes 74 % 42-75 Automated blood lymphocytes/100 leukocytes 17 % 12-44 Blood monocytes/100 leukocytes 8 % 0-12 Automated blood eosinophils/100 leukocytes 0 % 0-10 Automated blood basophils/100 leukocytes 0 % 0-10 Blood neutrophils automated count (number/volume) 15.7 10*3 1.8-7.8 Blood lymphocytes automated count (number/volume) 3.7 10*3 1.0-4.0 Blood monocytes automated count (number/volume) 1. 7 10*3 0.0-1.0 Automated eosinophil count 0.0 10*3/uL 0 .0-0.3 Automated blood basophil count (count/volume) 0.0 10*3/uL 0.0-0.1 Comprehensive metabolic panel - 12/08/16 07:27 Serum or plasma sodium measurement (moles/volume) 137 mmol/L 135-145 Serum or plasma potassium measurement (moles/volume) 4.2 mmol/L 3.6-5.0 Serum or plasma chloride measurement (moles/volume) 100 mmol/L 98-107 Carbon dioxide 27 mmol/L 21-32 Serum or plasma anion gap determination (moles/volume) 10 mmol/L 5-14 Serum or plasma urea nitrogen measurement (mass/volume ) 14 mg/dL 7-18 Serum or plasma creatinine measurement (mass/volume) 0.78 mg/dL 0.60-1.30 Serum or plasma urea nitrogen/creatinine mass ratio 18 NRG Serum or plasma creatinine measurement w ith calculation of estimated glomerular filtration rate > NRG Serum or plasma glucose measurement (mass/volume) 155 mg/dL 70-105 Serum or plasma calcium measurement (mass/volume) 8.2 mg/dL 8.5-10.1 Serum or plasma total bilirubin measurement (mass/volu me) 0.2 mg/dL 0.1-1.0 Serum or plasma alkaline phosphatase brayden surement (enzymatic activity/volume) 63 U/L 40-136 Serum or plasma aspartate aminotransfera se measurement (enzymatic activity/volume) 18 U/L 5-34 Serum or plasma alanine aminotransferase measurement (enzymatic activity/volume) 11 U/L 0-55 Serum or plasma protein measurement (mass/volume) 6.3 g/dL 6.4-8.2 Serum or plasma albumin measurement (mass/volume) 2.8 g/dL 3.2-4.5 Serum or plasma phosphate measurement (m ass/volume) - 12/08/16 07:27 Serum or plasma phosphate measurement (mass/volume) 3.1 mg/dL 2.3-4.7 Magnesium - 12/08/16 07:27 Magnesium 2.1 mg/dL 1.8-2.4 Blood manual differential performed dete ction - 12/08/16 07:27 Blood monocytes/100 leukocytes 8 % NRG Manual blood segmented neutrophils/100 leukocytes 76 % NRG Blood band neutrophils/100 leukocytes 0 % NRG Manual blood lymphocytes/100 leukocytes 15 % NRG Manual eosinophils/100 leukocytes in nose 1 % NRG Manual blood basophils/100 leukocytes 0 % NRG Blood anisocytosis detection by light microscopy M ODERATE NRG Blood hypochromia detection by light microscopy SL IGHT NRG Serum or plasma lithium measurement (mol es/volume) - 12/08/16 07:27 BNP level 2621.8 pg/mL <100.0 Serum or plasma troponin i.cardiac measu rement (mass/volume) - 12/08/16 07:27 Serum or plasma troponin i.cardiac measurement (mass/v olume) < ng/mL <0.30 Automated blood complete blood count (he mogram) panel - 12/09/16 04:15 Blood leukocytes automated count (number/volume) 10.6 10*3/uL 4.3-11.0 Blood erythrocytes automated count (number/volume) 2.99 10*6/uL 4.35-5.85 Venous blood hemoglobin measurement (mass/volume) 8.1 g/dL 11.5-16.0 Blood hematocrit (volume fraction) 26 % 35-52 Automated erythrocyte mean corpuscular volume 87 [ foz_us] 80-99 Automated erythrocyte mean corpuscular h emoglobin (mass per erythrocyte) 27 pg 25-34 Automated erythrocyte mean corpuscular h emoglobin concentration measurement (mass/volume) 31 g/dL 32-36 Automated erythrocyte distribution width ratio 18. 7 % 10.0- 14.5 Automated blood platelet count (count/volume) 483 10*3/uL 130-400 Automated blood platelet mean volume measurement 9.5 [foz_us] 7.4-10.4 Comprehensive metabolic panel - 12/09/16 04:15 Serum or plasma sodium measurement (moles/volume) 139 mmol/L 135-145 Serum or plasma potassium measurement (moles/volume) 4.1 mmol/L 3.6-5.0 Serum or plasma chloride measurement (moles/volume) 100 mmol/L 98-107 Carbon dioxide 29 mmol/L 21-32 Serum or plasma anion gap determination (moles/volume) 10 mmol/L 5-14 Serum or plasma urea nitrogen measurement (mass/volume ) 17 mg/dL 7-18 Serum or plasma creatinine measurement (mass/volume) 0.74 mg/dL 0.60-1.30 Serum or plasma urea nitrogen/creatinine mass ratio 23 NRG Serum or plasma creatinine measurement w ith calculation of estimated glomerular filtration rate > NRG Serum or plasma glucose measurement (mass/volume) 114 mg/dL 70-105 Serum or plasma calcium measurement (mass/volume) 8.1 mg/dL 8.5-10.1 Serum or plasma total bilirubin measurement (mass/volu me) 0.2 mg/dL 0.1-1.0 Serum or plasma alkaline phosphatase brayden surement (enzymatic activity/volume) 51 U/L 40-136 Serum or plasma aspartate aminotransfera se measurement (enzymatic activity/volume) 13 U/L 5-34 Serum or plasma alanine aminotransferase measurement (enzymatic activity/volume) 11 U/L 0-55 Serum or plasma protein measurement (mass/volume) 5.3 g/dL 6.4-8.2 Serum or plasma albumin measurement (mass/volume) 2.6 g/dL 3.2-4.5 Magnesium - 12/09/16 04:15 Magnesium 2.1 mg/dL 1.8-2.4 Complete blood count (CBC) with automate d white blood cell (WBC) differential - 12/10/16 04:00 Blood leukocytes automated count (number/volume) 14.0 10*3/uL 4.3-11.0 Blood erythrocytes automated count (number/volume) 3.03 10*6/uL 4.35-5.85 Venous blood hemoglobin measurement (mass/volume) 8.2 g/dL 11.5-16.0 Blood hematocrit (volume fraction) 27 % 35-52 Automated erythrocyte mean corpuscular volume 88 [ foz_us] 80-99 Automated erythrocyte mean corpuscular h emoglobin (mass per erythrocyte) 27 pg 25-34 Automated erythrocyte mean corpuscular h emoglobin concentration measurement (mass/volume) 31 g/dL 32-36 Automated erythrocyte distribution width ratio 18. 8 % 10.0- 14.5 Automated blood platelet count (count/volume) 474 10*3/uL 130-400 Automated blood platelet mean volume measurement 9.6 [foz_us] 7.4-10.4 Automated blood neutrophils/100 leukocytes 78 % 42-75 Automated blood lymphocytes/100 leukocytes 12 % 12-44 Blood monocytes/100 leukocytes 9 % 0-12 Automated blood eosinophils/100 leukocytes 1 % 0-10 Automated blood basophils/100 leukocytes 0 % 0-10 Blood neutrophils automated count (number/volume) 10.9 10*3 1.8-7.8 Blood lymphocytes automated count (number/volume) 1.7 10*3 1.0-4.0 Blood monocytes automated count (number/volume) 1. 2 10*3 0.0-1.0 Automated eosinophil count 0.2 10*3/uL 0 .0-0.3 Automated blood basophil count (count/volume) 0.0 10*3/uL 0.0-0.1 Whole blood basic metabolic panel - 10/0 07/22 04:00 Serum or plasma sodium measurement (moles/volume) 137 mmol/L 135-145 Serum or plasma potassium measurement (moles/volume) 4.5 mmol/L 3.6-5.0 Serum or plasma chloride measurement (moles/volume) 100 mmol/L 98-107 Carbon dioxide 29 mmol/L 21-32 Serum or plasma anion gap determination (moles/volume) 8 mmol/L 5-14 Serum or plasma urea nitrogen measurement (mass/volume ) 20 mg/dL 7-18 Serum or plasma creatinine measurement (mass/volume) 0.75 mg/dL 0.60-1.30 Serum or plasma urea nitrogen/creatinine mass ratio 27 NRG Serum or plasma creatinine measurement w ith calculation of estimated glomerular filtration rate > NRG Serum or plasma glucose measurement (mass/volume) 89 mg/dL 70-105 Serum or plasma calcium measurement (mass/volume) 7.9 mg/dL 8.5-10.1 Serum or plasma phosphate measurement (m ass/volume) - 12/10/16 04:00 Serum or plasma phosphate measurement (mass/volume) 2.8 mg/dL 2.3-4.7 Magnesium - 12/10/16 04:00 Magnesium 1.7 mg/dL 1.8-2.4 Automated blood complete blood count (he mogram) panel - 12/12/16 05:12 Blood leukocytes automated count (number/volume) 10.9 10*3/uL 4.3-11.0 Blood erythrocytes automated count (number/volume) 3.23 10*6/uL 4.35-5.85 Venous blood hemoglobin measurement (mass/volume) 8.7 g/dL 11.5-16.0 Blood hematocrit (volume fraction) 28 % 35-52 Automated erythrocyte mean corpuscular volume 86 [ foz_us] 80-99 Automated erythrocyte mean corpuscular h emoglobin (mass per erythrocyte) 27 pg 25-34 Automated erythrocyte mean corpuscular h emoglobin concentration measurement (mass/volume) 31 g/dL 32-36 Automated erythrocyte distribution width ratio 18. 5 % 10.0- 14.5 Automated blood platelet count (count/volume) 452 10*3/uL 130-400 Automated blood platelet mean volume measurement 9.5 [foz_us] 7.4-10.4 Whole blood basic metabolic panel - 09/21 05:12 Serum or plasma sodium measurement (moles/volume) 134 mmol/L 135-145 Serum or plasma potassium measurement (moles/volume) 4.0 mmol/L 3.6-5.0 Serum or plasma chloride measurement (moles/volume) 97 mmol/L 98-107 Carbon dioxide 29 mmol/L 21-32 Serum or plasma anion gap determination (moles/volume) 8 mmol/L 5-14 Serum or plasma urea nitrogen measurement (mass/volume ) 15 mg/dL 7-18 Serum or plasma creatinine measurement (mass/volume) 0.72 mg/dL 0.60-1.30 Serum or plasma urea nitrogen/creatinine mass ratio 21 NRG Serum or plasma creatinine measurement w ith calculation of estimated glomerular filtration rate > NRG Serum or plasma glucose measurement (mass/volume) 105 mg/dL 70-105 Serum or plasma calcium measurement (mass/volume) 8.0 mg/dL 8.5-10.1 Magnesium - 12/12/16 05:12 Magnesium 1.6 mg/dL 1.8-2.4 [facility] - 12/14/16 09:09 Blood leukocytes automated count (number/volume) 9.4 10*3/uL 4.3-11.0 Blood erythrocytes automated count (number/volume) 3.50 10*6/uL 4.35-5.85 Venous blood hemoglobin measurement (mass/volume) 9.5 g/dL 11.5-16.0 Blood hematocrit (volume fraction) 30 % 35-52 Automated erythrocyte mean corpuscular volume 86 [ foz_us] 80-99 Automated erythrocyte mean corpuscular h emoglobin (mass per erythrocyte) 27 pg 25-34 Automated erythrocyte mean corpuscular h emoglobin concentration measurement (mass/volume) 32 g/dL 32-36 Automated erythrocyte distribution width ratio 18. 4 % 10.0- 14.5 Automated blood platelet count (count/volume) 405 10*3/uL 130-400 Automated blood platelet mean volume measurement 9.4 [foz_us] 7.4-10.4 Automated blood complete blood count ( mogram) panel - 12/15/16 05:45 Blood leukocytes automated count (number/volume) 10.7 10*3/uL 4.3-11.0 Blood erythrocytes automated count (number/volume) 3.44 10*6/uL 4.35-5.85 Venous blood hemoglobin measurement (mass/volume) 9.3 g/dL 11.5-16.0 Blood hematocrit (volume fraction) 29 % 35-52 Automated erythrocyte mean corpuscular volume 86 [ foz_us] 80-99 Automated erythrocyte mean corpuscular h emoglobin (mass per erythrocyte) 27 pg 25-34 Automated erythrocyte mean corpuscular h emoglobin concentration measurement (mass/volume) 32 g/dL 32-36 Automated erythrocyte distribution width ratio 18. 3 % 10.0- 14.5 Automated blood platelet count (count/volume) 330 10*3/uL 130-400 Automated blood platelet mean volume measurement 9.6 [foz_us] 7.4-10.4 Whole blood basic metabolic panel - 12/06 05:45 Serum or plasma sodium measurement (moles/volume) 136 mmol/L 135-145 Serum or plasma potassium measurement (moles/volume) 3.8 mmol/L 3.6-5.0 Serum or plasma chloride measurement (moles/volume) 99 mmol/L 98-107 Carbon dioxide 26 mmol/L 21-32 Serum or plasma anion gap determination (moles/volume) 11 mmol/L 5-14 Serum or plasma urea nitrogen measurement (mass/volume ) 12 mg/dL 7-18 Serum or plasma creatinine measurement (mass/volume) 0.72 mg/dL 0.60-1.30 Serum or plasma urea nitrogen/creatinine mass ratio 17 NRG Serum or plasma creatinine measurement w ith calculation of estimated glomerular filtration rate > NRG Serum or plasma glucose measurement (mass/volume) 102 mg/dL 70-105 Serum or plasma calcium measurement (mass/volume) 8.8 mg/dL 8.5-10.1 Complete blood count (CBC) with automate d white blood cell (WBC) differential - 12/24/16 12:20 Blood leukocytes automated count (number/volume) 10.1 10*3/uL 4.3-11.0 Blood erythrocytes automated count (number/volume) 3.48 10*6/uL 4.35-5.85 Venous blood hemoglobin measurement (mass/volume) 9.2 g/dL 11.5-16.0 Blood hematocrit (volume fraction) 30 % 35-52 Automated erythrocyte mean corpuscular volume 85 [ foz_us] 80-99 Automated erythrocyte mean corpuscular h emoglobin (mass per erythrocyte) 26 pg 25-34 Automated erythrocyte mean corpuscular h emoglobin concentration measurement (mass/volume) 31 g/dL 32-36 Automated erythrocyte distribution width ratio 17. 9 % 10.0- 14.5 Automated blood platelet count (count/volume) 360 10*3/uL 130-400 Automated blood platelet mean volume measurement 10.0 [foz_us] 7.4-10.4 Automated blood neutrophils/100 leukocytes 74 % 42-75 Automated blood lymphocytes/100 leukocytes 14 % 12-44 Blood monocytes/100 leukocytes 9 % 0-12 Automated blood eosinophils/100 leukocytes 3 % 0-10 Automated blood basophils/100 leukocytes 0 % 0-10 Blood neutrophils automated count (number/volume) 7.5 10*3 1.8-7.8 Blood lymphocytes automated count (number/volume) 1.4 10*3 1.0-4.0 Blood monocytes automated count (number/volume) 0. 9 10*3 0.0-1.0 Automated eosinophil count 0.3 10*3/uL 0 .0-0.3 Automated blood basophil count (count/volume) 0.0 10*3/uL 0.0-0.1 Whole blood basic metabolic panel - 12/06 11/22 12:20 Serum or plasma sodium measurement (moles/volume) 136 mmol/L 135-145 Serum or plasma potassium measurement (moles/volume) 4.1 mmol/L 3.6-5.0 Serum or plasma chloride measurement (moles/volume) 95 mmol/L 98-107 Carbon dioxide 34 mmol/L 21-32 Serum or plasma anion gap determination (moles/volume) 7 mmol/L 5-14 Serum or plasma urea nitrogen measurement (mass/volume ) 17 mg/dL 7-18 Serum or plasma creatinine measurement (mass/volume) 0.95 mg/dL 0.60-1.30 Serum or plasma urea nitrogen/creatinine mass ratio 18 NRG Serum or plasma creatinine measurement w ith calculation of estimated glomerular filtration rate 56 NRG Serum or plasma glucose measurement (mass/volume) 102 mg/dL 70-105 Serum or plasma calcium measurement (mass/volume) 9.5 mg/dL 8.5-10.1 Magnesium - 12/24/16 12:20 Magnesium 1.6 mg/dL 1.8-2.4 Complete blood count (CBC) with automate d white blood cell (WBC) differential - 01/08/17 09:30 Blood leukocytes automated count (number/volume) 8.6 10*3/uL 4.3-11.0 Blood erythrocytes automated count (number/volume) 3.22 10*6/uL 4.35-5.85 Venous blood hemoglobin measurement (mass/volume) 8.5 g/dL 11.5-16.0 Blood hematocrit (volume fraction) 28 % 35-52 Automated erythrocyte mean corpuscular volume 87 [ foz_us] 80-99 Automated erythrocyte mean corpuscular h emoglobin (mass per erythrocyte) 26 pg 25-34 Automated erythrocyte mean corpuscular h emoglobin concentration measurement (mass/volume) 30 g/dL 32-36 Automated erythrocyte distribution width ratio 18. 0 % 10.0- 14.5 Automated blood platelet count (count/volume) 353 10*3/uL 130-400 Automated blood platelet mean volume measurement 9.9 [foz_us] 7.4-10.4 Automated blood neutrophils/100 leukocytes 73 % 42-75 Automated blood lymphocytes/100 leukocytes 16 % 12-44 Blood monocytes/100 leukocytes 9 % 0-12 Automated blood eosinophils/100 leukocytes 3 % 0-10 Automated blood basophils/100 leukocytes 0 % 0-10 Blood neutrophils automated count (number/volume) 6.3 10*3 1.8-7.8 Blood lymphocytes automated count (number/volume) 1.3 10*3 1.0-4.0 Blood monocytes automated count (number/volume) 0. 7 10*3 0.0-1.0 Automated eosinophil count 0.2 10*3/uL 0 .0-0.3 Automated blood basophil count (count/volume) 0.0 10*3/uL 0.0-0.1 Methicillin resistant Staphylococcus aur eus (MRSA) screening culture - 07/15/17 07:27 Methicillin resistant Staphylococcus aureus (MRSA) scr eening culture NEG NRG Complete blood count (CBC) with automate d white blood cell (WBC) differential - 09/14/18 09:07 Blood leukocytes automated count (number/volume) 6.6 10*3/uL 4.3-11.0 Blood erythrocytes automated count (number/volume) 4.36 10*6/uL 4.35-5.85 Venous blood hemoglobin measurement (mass/volume) 13.0 g/dL 11.5-16.0 Blood hematocrit (volume fraction) 41 % 35-52 Automated erythrocyte mean corpuscular volume 94 [ foz_us] 80-99 Automated erythrocyte mean corpuscular h emoglobin (mass per erythrocyte) 30 pg 25-34 Automated erythrocyte mean corpuscular h emoglobin concentration measurement (mass/volume) 32 g/dL 32-36 Automated erythrocyte distribution width ratio 14. 0 % 10.0- 14.5 Automated blood platelet count (count/volume) 240 10*3/uL 130-400 Automated blood platelet mean volume measurement 9.8 [foz_us] 7.4-10.4 Automated blood neutrophils/100 leukocytes 70 % 42-75 Automated blood lymphocytes/100 leukocytes 18 % 12-44 Blood monocytes/100 leukocytes 9 % 0-12 Automated blood eosinophils/100 leukocytes 3 % 0-10 Automated blood basophils/100 leukocytes 0 % 0-10 Blood neutrophils automated count (number/volume) 4.6 10*3 1.8-7.8 Blood lymphocytes automated count (number/volume) 1.2 10*3 1.0-4.0 Blood monocytes automated count (number/volume) 0. 6 10*3 0.0-1.0 Automated eosinophil count 0.2 10*3/uL 0 .0-0.3 Automated blood basophil count (count/volume) 0.0 10*3/uL 0.0-0.1 Comprehensive metabolic panel - 09/14/18 09:07 Serum or plasma sodium measurement (moles/volume) 135 mmol/L 135-145 Serum or plasma potassium measurement (moles/volume) 4.5 mmol/L 3.6-5.0 Serum or plasma chloride measurement (moles/volume) 101 mmol/L 98-107 Carbon dioxide 24 mmol/L 21-32 Serum or plasma anion gap determination (moles/volume) 10 mmol/L 5-14 Serum or plasma urea nitrogen measurement (mass/volume ) 19 mg/dL 7-18 Serum or plasma creatinine measurement (mass/volume) 1.04 mg/dL 0.60-1.30 Serum or plasma urea nitrogen/creatinine mass ratio 18 NRG Serum or plasma creatinine measurement w ith calculation of estimated glomerular filtration rate 50 NRG Serum or plasma glucose measurement (mass/volume) 110 mg/dL 70-105 Serum or plasma calcium measurement (mass/volume) 9.4 mg/dL 8.5-10.1 Serum or plasma total bilirubin measurement (mass/volu me) 0.3 mg/dL 0.1-1.0 Serum or plasma alkaline phosphatase brayden surement (enzymatic activity/volume) 91 U/L 40-136 Serum or plasma aspartate aminotransfera se measurement (enzymatic activity/volume) 14 U/L 5-34 Serum or plasma alanine aminotransferase measurement (enzymatic activity/volume) 9 U/L 0-55 Serum or plasma protein measurement (mass/volume) 6.9 g/dL 6.4-8.2 Serum or plasma albumin measurement (mass/volume) 4.0 g/dL 3.2-4.5 CALCIUM CORRECTED 9.4 mg/dL 8.5-10.1 Serum ragweed IgE antibody assay - 09/14 09:07 [id number] 0.8 % 0.0-5.0 Complete blood count (CBC) with automate d white blood cell (WBC) differential - 02/02/19 13:50 Blood leukocytes automated count (number/volume) 19.4 10*3/uL 4.3-11.0 Blood erythrocytes automated count (number/volume) 4.08 10*6/uL 4.35-5.85 Venous blood hemoglobin measurement (mass/volume) 12.6 g/dL 11.5-16.0 Blood hematocrit (volume fraction) 38 % 35-52 Automated erythrocyte mean corpuscular volume 93 [ foz_us] 80-99 Automated erythrocyte mean corpuscular h emoglobin (mass per erythrocyte) 31 pg 25-34 Automated erythrocyte mean corpuscular h emoglobin concentration measurement (mass/volume) 33 g/dL 32-36 Automated erythrocyte distribution width ratio 14. 8 % 10.0- 14.5 Automated blood platelet count (count/volume) 224 10*3/uL 130-400 Automated blood platelet mean volume measurement 9.8 [foz_us] 7.4-10.4 Automated blood neutrophils/100 leukocytes 92 % 42-75 Automated blood lymphocytes/100 leukocytes 4 % 12-44 Blood monocytes/100 leukocytes 4 % 0-12 Automated blood eosinophils/100 leukocytes 0 % 0-10 Automated blood basophils/100 leukocytes 0 % 0-10 Blood neutrophils automated count (number/volume) 17.9 10*3 1.8-7.8 Blood lymphocytes automated count (number/volume) 0.8 10*3 1.0-4.0 Blood monocytes automated count (number/volume) 0. 7 10*3 0.0-1.0 Automated eosinophil count 0.0 10*3/uL 0 .0-0.3 Automated blood basophil count (count/volume) 0.0 10*3/uL 0.0-0.1 Comprehensive metabolic panel - 02/02/19 13:50 Serum or plasma sodium measurement (moles/volume) 135 mmol/L 135-145 Serum or plasma potassium measurement (moles/volume) 4.0 mmol/L 3.6-5.0 Serum or plasma chloride measurement (moles/volume) 100 mmol/L 98-107 Carbon dioxide 21 mmol/L 21-32 Serum or plasma anion gap determination (moles/volume) 14 mmol/L 5-14 Serum or plasma urea nitrogen measurement (mass/volume ) 27 mg/dL 7-18 Serum or plasma creatinine measurement (mass/volume) 1.28 mg/dL 0.60-1.30 Serum or plasma urea nitrogen/creatinine mass ratio 21 NRG Serum or plasma creatinine measurement w ith calculation of estimated glomerular filtration rate 40 NRG Serum or plasma glucose measurement (mass/volume) 114 mg/dL 70-105 Serum or plasma calcium measurement (mass/volume) 9.1 mg/dL 8.5-10.1 Serum or plasma total bilirubin measurement (mass/volu me) 0.8 mg/dL 0.1-1.0 Serum or plasma alkaline phosphatase brayden surement (enzymatic activity/volume) 67 U/L 40-136 Serum or plasma aspartate aminotransfera se measurement (enzymatic activity/volume) 13 U/L 5-34 Serum or plasma alanine aminotransferase measurement (enzymatic activity/volume) 9 U/L 0-55 Serum or plasma protein measurement (mass/volume) 6.7 g/dL 6.4-8.2 Serum or plasma albumin measurement (mass/volume) 4.0 g/dL 3.2-4.5 CALCIUM CORRECTED 9.1 mg/dL 8.5-10.1 Lipase - 02/02/19 13:50 Lipase 10 U/L 8-78 Manual absolute plasma cell count - 01/07 10/24 13:50 Blood monocytes/100 leukocytes 2 % NRG Manual blood segmented neutrophils/100 leukocytes 91 % NRG Blood band neutrophils/100 leukocytes 4 % NRG Manual blood lymphocytes/100 leukocytes 3 % NRG Blood erythrocyte morphology finding identification NORMAL NRG Complete urinalysis with reflex to cultu re - 02/02/19 13:56 Urine color determination YELLOW NRG Urine clarity determination CLEAR NR G Urine pH measurement by test strip 5.5 5-9 Specific gravity of urine by test strip >= 1.016-1.022 Urine protein assay by test strip, semi-quantitative 1+ NEGATIVE Urine glucose detection by automated test strip NE GATIVE NEGATIVE Erythrocytes detection in urine sediment by light micr oscopy 2+ NEGATIVE Urine ketones detection by automated test strip TR AUGUSTUS NEGATIVE Urine nitrite detection by test strip NEGATIVE NEGATIVE Urine total bilirubin detection by test strip 1+ NEGATIVE Urine urobilinogen measurement by automated test strip (mass/volume) 0.2 mg/dL < = 1.0 Urine leukocyte esterase detection by dipstick TRA CE NEGATIVE Automated urine sediment erythrocyte cou nt by microscopy (number/high power field) NONE NRG Automated urine sediment leukocyte count by microscopy (number/high power field) [HPF] NRG Bacteria detection in urine sediment by light microsco py MODERATE NRG Squamous epithelial cells detection in u rine sediment by light microscopy 2-5 NRG Crystals detection in urine sediment by light microsco py NONE NRG Casts detection in urine sediment by light microscopy NONE NRG Mucus detection in urine sediment by light microscopy NEGATIVE NRG Complete urinalysis with reflex to culture YES NRG Bacterial urine culture - 02/02/19 13:56 Bacterial urine culture 3 OR MORE NRG COLONY COUNT >100,000/ML NRG FTX;REPORTABLE SUGGESTING PROBABLE COLLECTION NRG FREE TEXT ENTRY 2 CONTAMINATION WITH SKIN JOSE NRG FREE TEXT ENTRY 3 NO SUSCEPTIBILITY PERFORMED NRG Blood lactic acid measurement (moles/vol ume) - 02/02/19 15:00 Blood lactic acid measurement (moles/volume) 1.85 mmol/L 0.50-2.00 Bacterial blood culture - 02/02/19 15:00 Bacterial blood culture NG NRG Bacterial blood culture - 02/02/19 15:16 Bacterial blood culture NG NRG Complete blood count (CBC) with automate d white blood cell (WBC) differential - 02/03/19 05:00 Blood leukocytes automated count (number/volume) 15.6 10*3/uL 4.3-11.0 Blood erythrocytes automated count (number/volume) 3.39 10*6/uL 4.35-5.85 Venous blood hemoglobin measurement (mass/volume) 10.4 g/dL 11.5-16.0 Blood hematocrit (volume fraction) 32 % 35-52 Automated erythrocyte mean corpuscular volume 96 [ foz_us] 80-99 Automated erythrocyte mean corpuscular h emoglobin (mass per erythrocyte) 31 pg 25-34 Automated erythrocyte mean corpuscular h emoglobin concentration measurement (mass/volume) 32 g/dL 32-36 Automated erythrocyte distribution width ratio 14. 8 % 10.0- 14.5 Automated blood platelet count (count/volume) 158 10*3/uL 130-400 Automated blood platelet mean volume measurement 10.2 [foz_us] 7.4-10.4 Automated blood neutrophils/100 leukocytes 91 % 42-75 Automated blood lymphocytes/100 leukocytes 5 % 12-44 Blood monocytes/100 leukocytes 4 % 0-12 Automated blood eosinophils/100 leukocytes 0 % 0-10 Automated blood basophils/100 leukocytes 0 % 0-10 Blood neutrophils automated count (number/volume) 14.2 10*3 1.8-7.8 Blood lymphocytes automated count (number/volume) 0.8 10*3 1.0-4.0 Blood monocytes automated count (number/volume) 0. 5 10*3 0.0-1.0 Automated eosinophil count 0.0 10*3/uL 0 .0-0.3 Automated blood basophil count (count/volume) 0.0 10*3/uL 0.0-0.1 Comprehensive metabolic panel - 02/03/19 05:00 Serum or plasma sodium measurement (moles/volume) 136 mmol/L 135-145 Serum or plasma potassium measurement (moles/volume) 3.8 mmol/L 3.6-5.0 Serum or plasma chloride measurement (moles/volume) 109 mmol/L 98-107 Carbon dioxide 17 mmol/L 21-32 Serum or plasma anion gap determination (moles/volume) 10 mmol/L 5-14 Serum or plasma urea nitrogen measurement (mass/volume ) 20 mg/dL 7-18 Serum or plasma creatinine measurement (mass/volume) 0.91 mg/dL 0.60-1.30 Serum or plasma urea nitrogen/creatinine mass ratio 22 NRG Serum or plasma creatinine measurement w ith calculation of estimated glomerular filtration rate 59 NRG Serum or plasma glucose measurement (mass/volume) 102 mg/dL 70-105 Serum or plasma calcium measurement (mass/volume) 7.6 mg/dL 8.5-10.1 Serum or plasma total bilirubin measurement (mass/volu me) 0.6 mg/dL 0.1-1.0 Serum or plasma alkaline phosphatase brayden surement (enzymatic activity/volume) 59 U/L 40-136 Serum or plasma aspartate aminotransfera se measurement (enzymatic activity/volume) 13 U/L 5-34 Serum or plasma alanine aminotransferase measurement (enzymatic activity/volume) 7 U/L 0-55 Serum or plasma protein measurement (mass/volume) 5.3 g/dL 6.4-8.2 Serum or plasma albumin measurement (mass/volume) 2.9 g/dL 3.2-4.5 CALCIUM CORRECTED 8.5 mg/dL 8.5-10.1 Complete blood count (CBC) with automate d white blood cell (WBC) differential - 02/04/19 05:04 Blood leukocytes automated count (number/volume) 13.3 10*3/uL 4.3-11.0 Blood erythrocytes automated count (number/volume) 3.45 10*6/uL 4.35-5.85 Venous blood hemoglobin measurement (mass/volume) 10.8 g/dL 11.5-16.0 Blood hematocrit (volume fraction) 33 % 35-52 Automated erythrocyte mean corpuscular volume 97 [ foz_us] 80-99 Automated erythrocyte mean corpuscular h emoglobin (mass per erythrocyte) 31 pg 25-34 Automated erythrocyte mean corpuscular h emoglobin concentration measurement (mass/volume) 32 g/dL 32-36 Automated erythrocyte distribution width ratio 15. 1 % 10.0- 14.5 Automated blood platelet count (count/volume) 169 10*3/uL 130-400 Automated blood platelet mean volume measurement 9.9 [foz_us] 7.4-10.4 Automated blood neutrophils/100 leukocytes 90 % 42-75 Automated blood lymphocytes/100 leukocytes 5 % 12-44 Blood monocytes/100 leukocytes 5 % 0-12 Automated blood eosinophils/100 leukocytes 1 % 0-10 Automated blood basophils/100 leukocytes 0 % 0-10 Blood neutrophils automated count (number/volume) 12.0 10*3 1.8-7.8 Blood lymphocytes automated count (number/volume) 0.7 10*3 1.0-4.0 Blood monocytes automated count (number/volume) 0. 6 10*3 0.0-1.0 Automated eosinophil count 0.1 10*3/uL 0 .0-0.3 Automated blood basophil count (count/volume) 0.0 10*3/uL 0.0-0.1 Comprehensive metabolic panel - 02/04/19 05:04 Serum or plasma sodium measurement (moles/volume) 137 mmol/L 135-145 Serum or plasma potassium measurement (moles/volume) 3.9 mmol/L 3.6-5.0 Serum or plasma chloride measurement (moles/volume) 111 mmol/L 98-107 Carbon dioxide 15 mmol/L 21-32 Serum or plasma anion gap determination (moles/volume) 11 mmol/L 5-14 Serum or plasma urea nitrogen measurement (mass/volume ) 17 mg/dL 7-18 Serum or plasma creatinine measurement (mass/volume) 0.89 mg/dL 0.60-1.30 Serum or plasma urea nitrogen/creatinine mass ratio 19 NRG Serum or plasma creatinine measurement w ith calculation of estimated glomerular filtration rate 60 NRG Serum or plasma glucose measurement (mass/volume) 83 mg/dL 70-105 Serum or plasma calcium measurement (mass/volume) 8.1 mg/dL 8.5-10.1 Serum or plasma total bilirubin measurement (mass/volu me) 0.5 mg/dL 0.1-1.0 Serum or plasma alkaline phosphatase brayden surement (enzymatic activity/volume) 70 U/L 40-136 Serum or plasma aspartate aminotransfera se measurement (enzymatic activity/volume) 13 U/L 5-34 Serum or plasma alanine aminotransferase measurement (enzymatic activity/volume) 8 U/L 0-55 Serum or plasma protein measurement (mass/volume) 5.6 g/dL 6.4-8.2 Serum or plasma albumin measurement (mass/volume) 2.9 g/dL 3.2-4.5 CALCIUM CORRECTED 9.0 mg/dL 8.5-10.1 Complete blood count (CBC) with automate d white blood cell (WBC) differential - 02/05/19 05:44 Blood leukocytes automated count (number/volume) 9.2 10*3/uL 4.3-11.0 Blood erythrocytes automated count (number/volume) 3.51 10*6/uL 4.35-5.85 Venous blood hemoglobin measurement (mass/volume) 10.8 g/dL 11.5-16.0 Blood hematocrit (volume fraction) 34 % 35-52 Automated erythrocyte mean corpuscular volume 95 [ foz_us] 80-99 Automated erythrocyte mean corpuscular h emoglobin (mass per erythrocyte) 31 pg 25-34 Automated erythrocyte mean corpuscular h emoglobin concentration measurement (mass/volume) 32 g/dL 32-36 Automated erythrocyte distribution width ratio 14. 8 % 10.0- 14.5 Automated blood platelet count (count/volume) 188 10*3/uL 130-400 Automated blood platelet mean volume measurement 9.7 [foz_us] 7.4-10.4 Automated blood neutrophils/100 leukocytes 84 % 42-75 Automated blood lymphocytes/100 leukocytes 7 % 12-44 Blood monocytes/100 leukocytes 7 % 0-12 Automated blood eosinophils/100 leukocytes 2 % 0-10 Automated blood basophils/100 leukocytes 0 % 0-10 Blood neutrophils automated count (number/volume) 7.8 10*3 1.8-7.8 Blood lymphocytes automated count (number/volume) 0.7 10*3 1.0-4.0 Blood monocytes automated count (number/volume) 0. 7 10*3 0.0-1.0 Automated eosinophil count 0.2 10*3/uL 0 .0-0.3 Automated blood basophil count (count/volume) 0.0 10*3/uL 0.0-0.1 Comprehensive metabolic panel - 02/05/19 05:44 Serum or plasma sodium measurement (moles/volume) 137 mmol/L 135-145 Serum or plasma potassium measurement (moles/volume) 3.6 mmol/L 3.6-5.0 Serum or plasma chloride measurement (moles/volume) 108 mmol/L 98-107 Carbon dioxide 18 mmol/L 21-32 Serum or plasma anion gap determination (moles/volume) 11 mmol/L 5-14 Serum or plasma urea nitrogen measurement (mass/volume ) 13 mg/dL 7-18 Serum or plasma creatinine measurement (mass/volume) 0.77 mg/dL 0.60-1.30 Serum or plasma urea nitrogen/creatinine mass ratio 17 NRG Serum or plasma creatinine measurement w ith calculation of estimated glomerular filtration rate > NRG Serum or plasma glucose measurement (mass/volume) 99 mg/dL 70-105 Serum or plasma calcium measurement (mass/volume) 8.2 mg/dL 8.5-10.1 Serum or plasma total bilirubin measurement (mass/volu me) 0.5 mg/dL 0.1-1.0 Serum or plasma alkaline phosphatase brayden surement (enzymatic activity/volume) 60 U/L 40-136 Serum or plasma aspartate aminotransfera se measurement (enzymatic activity/volume) 12 U/L 5-34 Serum or plasma alanine aminotransferase measurement (enzymatic activity/volume) 8 U/L 0-55 Serum or plasma protein measurement (mass/volume) 5.3 g/dL 6.4-8.2 Serum or plasma albumin measurement (mass/volume) 2.7 g/dL 3.2-4.5 CALCIUM CORRECTED 9.2 mg/dL 8.5-10.1 Complete blood count (CBC) with automate d white blood cell (WBC) differential - 02/06/19 05:05 Blood leukocytes automated count (number/volume) 8.2 10*3/uL 4.3-11.0 Blood erythrocytes automated count (number/volume) 3.42 10*6/uL 4.35-5.85 Venous blood hemoglobin measurement (mass/volume) 10.5 g/dL 11.5-16.0 Blood hematocrit (volume fraction) 32 % 35-52 Automated erythrocyte mean corpuscular volume 94 [ foz_us] 80-99 Automated erythrocyte mean corpuscular h emoglobin (mass per erythrocyte) 31 pg 25-34 Automated erythrocyte mean corpuscular h emoglobin concentration measurement (mass/volume) 33 g/dL 32-36 Automated erythrocyte distribution width ratio 14. 9 % 10.0- 14.5 Automated blood platelet count (count/volume) 198 10*3/uL 130-400 Automated blood platelet mean volume measurement 9.4 [foz_us] 7.4-10.4 Automated blood neutrophils/100 leukocytes 76 % 42-75 Automated blood lymphocytes/100 leukocytes 10 % 12-44 Blood monocytes/100 leukocytes 10 % 0-12 Automated blood eosinophils/100 leukocytes 4 % 0-10 Automated blood basophils/100 leukocytes 0 % 0-10 Blood neutrophils automated count (number/volume) 6.2 10*3 1.8-7.8 Blood lymphocytes automated count (number/volume) 0.9 10*3 1.0-4.0 Blood monocytes automated count (number/volume) 0. 8 10*3 0.0-1.0 Automated eosinophil count 0.3 10*3/uL 0 .0-0.3 Automated blood basophil count (count/volume) 0.0 10*3/uL 0.0-0.1 Comprehensive metabolic panel - 02/06/19 05:05 Serum or plasma sodium measurement (moles/volume) 137 mmol/L 135-145 Serum or plasma potassium measurement (moles/volume) 3.3 mmol/L 3.6-5.0 Serum or plasma chloride measurement (moles/volume) 107 mmol/L 98-107 Carbon dioxide 22 mmol/L 21-32 Serum or plasma anion gap determination (moles/volume) 8 mmol/L 5-14 Serum or plasma urea nitrogen measurement (mass/volume ) 11 mg/dL 7-18 Serum or plasma creatinine measurement (mass/volume) 0.77 mg/dL 0.60-1.30 Serum or plasma urea nitrogen/creatinine mass ratio 14 NRG Serum or plasma creatinine measurement w ith calculation of estimated glomerular filtration rate > NRG Serum or plasma glucose measurement (mass/volume) 111 mg/dL 70-105 Serum or plasma calcium measurement (mass/volume) 7.9 mg/dL 8.5-10.1 Serum or plasma total bilirubin measurement (mass/volu me) 0.3 mg/dL 0.1-1.0 Serum or plasma alkaline phosphatase brayden surement (enzymatic activity/volume) 52 U/L 40-136 Serum or plasma aspartate aminotransfera se measurement (enzymatic activity/volume) 12 U/L 5-34 Serum or plasma alanine aminotransferase measurement (enzymatic activity/volume) 7 U/L 0-55 Serum or plasma protein measurement (mass/volume) 4.9 g/dL 6.4-8.2 Serum or plasma albumin measurement (mass/volume) 2.6 g/dL 3.2-4.5 CALCIUM CORRECTED 9.0 mg/dL 8.5-10.1 Complete blood count (CBC) with automate d white blood cell (WBC) differential - 02/08/19 16:45 Blood leukocytes automated count (number/volume) 9.1 10*3/uL 4.3-11.0 Blood erythrocytes automated count (number/volume) 3.66 10*6/uL 4.35-5.85 Venous blood hemoglobin measurement (mass/volume) 11.3 g/dL 11.5-16.0 Blood hematocrit (volume fraction) 34 % 35-52 Automated erythrocyte mean corpuscular volume 93 [ foz_us] 80-99 Automated erythrocyte mean corpuscular h emoglobin (mass per erythrocyte) 31 pg 25-34 Automated erythrocyte mean corpuscular h emoglobin concentration measurement (mass/volume) 33 g/dL 32-36 Automated erythrocyte distribution width ratio 14. 8 % 10.0- 14.5 Automated blood platelet count (count/volume) 250 10*3/uL 130-400 Automated blood platelet mean volume measurement 9.5 [foz_us] 7.4-10.4 Automated blood neutrophils/100 leukocytes 74 % 42-75 Automated blood lymphocytes/100 leukocytes 11 % 12-44 Blood monocytes/100 leukocytes 10 % 0-12 Automated blood eosinophils/100 leukocytes 5 % 0-10 Automated blood basophils/100 leukocytes 0 % 0-10 Blood neutrophils automated count (number/volume) 6.8 10*3 1.8-7.8 Blood lymphocytes automated count (number/volume) 1.0 10*3 1.0-4.0 Blood monocytes automated count (number/volume) 0. 9 10*3 0.0-1.0 Automated eosinophil count 0.4 10*3/uL 0 .0-0.3 Automated blood basophil count (count/volume) 0.0 10*3/uL 0.0-0.1 Comprehensive metabolic panel - 02/08/19 16:45 Serum or plasma sodium measurement (moles/volume) 138 mmol/L 135-145 Serum or plasma potassium measurement (moles/volume) 3.4 mmol/L 3.6-5.0 Serum or plasma chloride measurement (moles/volume) 101 mmol/L 98-107 Carbon dioxide 29 mmol/L 21-32 Serum or plasma anion gap determination (moles/volume) 8 mmol/L 5-14 Serum or plasma urea nitrogen measurement (mass/volume ) 10 mg/dL 7-18 Serum or plasma creatinine measurement (mass/volume) 0.78 mg/dL 0.60-1.30 Serum or plasma urea nitrogen/creatinine mass ratio 13 NRG Serum or plasma creatinine measurement w ith calculation of estimated glomerular filtration rate > NRG Serum or plasma glucose measurement (mass/volume) 109 mg/dL 70-105 Serum or plasma calcium measurement (mass/volume) 8.9 mg/dL 8.5-10.1 Serum or plasma total bilirubin measurement (mass/volu me) 0.3 mg/dL 0.1-1.0 Serum or plasma alkaline phosphatase brayden surement (enzymatic activity/volume) 56 U/L 40-136 Serum or plasma aspartate aminotransfera se measurement (enzymatic activity/volume) 29 U/L 5-34 Serum or plasma alanine aminotransferase measurement (enzymatic activity/volume) 7 U/L 0-55 Serum or plasma protein measurement (mass/volume) 5.6 g/dL 6.4-8.2 Serum or plasma albumin measurement (mass/volume) 3.0 g/dL 3.2-4.5 CALCIUM CORRECTED 9.7 mg/dL 8.5-10.1 Complete urinalysis with reflex to cultu re - 02/08/19 17:22 Urine color determination ORANGE NRG Urine clarity determination CLEAR NR G Urine pH measurement by test strip 6.0 5-9 Specific gravity of urine by test strip 1.020 1.016-1.022 Urine protein assay by test strip, semi-quantitative NEGATIVE NEGATIVE Urine glucose detection by automated test strip NE GATIVE NEGATIVE Erythrocytes detection in urine sediment by light micr oscopy 1+ NEGATIVE Urine ketones detection by automated test strip NE GATIVE NEGATIVE Urine nitrite detection by test strip NEGATIVE NEGATIVE Urine total bilirubin detection by test strip NEGA TIVE NEGATIVE Urine urobilinogen measurement by automated test strip (mass/volume) 0.2 mg/dL < = 1.0 Urine leukocyte esterase detection by dipstick 1+ NEGATIVE Automated urine sediment erythrocyte cou nt by microscopy (number/high power field) [HPF] NRG Automated urine sediment leukocyte count by microscopy (number/high power field) [HPF] NRG Bacteria detection in urine sediment by light microsco py NEGATIVE NRG Squamous epithelial cells detection in u rine sediment by light microscopy 5-10 NRG Crystals detection in urine sediment by light microsco py NONE NRG Casts detection in urine sediment by light microscopy NONE NRG Mucus detection in urine sediment by light microscopy NEGATIVE NRG Complete urinalysis with reflex to culture NO NRG Complete blood count (CBC) with automate d white blood cell (WBC) differential - 02/09/19 05:46 Blood leukocytes automated count (number/volume) 8.6 10*3/uL 4.3-11.0 Blood erythrocytes automated count (number/volume) 3.56 10*6/uL 4.35-5.85 Venous blood hemoglobin measurement (mass/volume) 10.9 g/dL 11.5-16.0 Blood hematocrit (volume fraction) 34 % 35-52 Automated erythrocyte mean corpuscular volume 94 [ foz_us] 80-99 Automated erythrocyte mean corpuscular h emoglobin (mass per erythrocyte) 31 pg 25-34 Automated erythrocyte mean corpuscular h emoglobin concentration measurement (mass/volume) 33 g/dL 32-36 Automated erythrocyte distribution width ratio 14. 7 % 10.0- 14.5 Automated blood platelet count (count/volume) 235 10*3/uL 130-400 Automated blood platelet mean volume measurement 10.0 [foz_us] 7.4-10.4 Automated blood neutrophils/100 leukocytes 71 % 42-75 Automated blood lymphocytes/100 leukocytes 12 % 12-44 Blood monocytes/100 leukocytes 12 % 0-12 Automated blood eosinophils/100 leukocytes 5 % 0-10 Automated blood basophils/100 leukocytes 0 % 0-10 Blood neutrophils automated count (number/volume) 6.1 10*3 1.8-7.8 Blood lymphocytes automated count (number/volume) 1.0 10*3 1.0-4.0 Blood monocytes automated count (number/volume) 1. 0 10*3 0.0-1.0 Automated eosinophil count 0.5 10*3/uL 0 .0-0.3 Automated blood basophil count (count/volume) 0.0 10*3/uL 0.0-0.1 Comprehensive metabolic panel - 02/09/19 05:46 Serum or plasma sodium measurement (moles/volume) 140 mmol/L 135-145 Serum or plasma potassium measurement (moles/volume) 3.2 mmol/L 3.6-5.0 Serum or plasma chloride measurement (moles/volume) 101 mmol/L 98-107 Carbon dioxide 27 mmol/L 21-32 Serum or plasma anion gap determination (moles/volume) 12 mmol/L 5-14 Serum or plasma urea nitrogen measurement (mass/volume ) 8 mg/dL 7-18 Serum or plasma creatinine measurement (mass/volume) 0.74 mg/dL 0.60-1.30 Serum or plasma urea nitrogen/creatinine mass ratio 11 NRG Serum or plasma creatinine measurement w ith calculation of estimated glomerular filtration rate > NRG Serum or plasma glucose measurement (mass/volume) 107 mg/dL 70-105 Serum or plasma calcium measurement (mass/volume) 8.4 mg/dL 8.5-10.1 Serum or plasma total bilirubin measurement (mass/volu me) 0.3 mg/dL 0.1-1.0 Serum or plasma alkaline phosphatase brayden surement (enzymatic activity/volume) 53 U/L 40-136 Serum or plasma aspartate aminotransfera se measurement (enzymatic activity/volume) 24 U/L 5-34 Serum or plasma alanine aminotransferase measurement (enzymatic activity/volume) 11 U/L 0-55 Serum or plasma protein measurement (mass/volume) 5.3 g/dL 6.4-8.2 Serum or plasma albumin measurement (mass/volume) 2.9 g/dL 3.2-4.5 CALCIUM CORRECTED 9.3 mg/dL 8.5-10.1 Comprehensive metabolic panel - 02/11/19 05:13 Serum or plasma sodium measurement (moles/volume) 139 mmol/L 135-145 Serum or plasma potassium measurement (moles/volume) 3.7 mmol/L 3.6-5.0 Serum or plasma chloride measurement (moles/volume) 102 mmol/L 98-107 Carbon dioxide 28 mmol/L 21-32 Serum or plasma anion gap determination (moles/volume) 9 mmol/L 5-14 Serum or plasma urea nitrogen measurement (mass/volume ) 10 mg/dL 7-18 Serum or plasma creatinine measurement (mass/volume) 0.77 mg/dL 0.60-1.30 Serum or plasma urea nitrogen/creatinine mass ratio 13 NRG Serum or plasma creatinine measurement w ith calculation of estimated glomerular filtration rate > NRG Serum or plasma glucose measurement (mass/volume) 107 mg/dL 70-105 Serum or plasma calcium measurement (mass/volume) 7.9 mg/dL 8.5-10.1 Serum or plasma total bilirubin measurement (mass/volu me) 0.2 mg/dL 0.1-1.0 Serum or plasma alkaline phosphatase brayden surement (enzymatic activity/volume) 45 U/L 40-136 Serum or plasma aspartate aminotransfera se measurement (enzymatic activity/volume) 12 U/L 5-34 Serum or plasma alanine aminotransferase measurement (enzymatic activity/volume) < U/L 0-55 Serum or plasma protein measurement (mass/volume) 5.2 g/dL 6.4-8.2 Serum or plasma albumin measurement (mass/volume) 2.9 g/dL 3.2-4.5 CALCIUM CORRECTED 8.8 mg/dL 8.5-10.1 Complete blood count (CBC) with automate d white blood cell (WBC) differential - 02/11/19 05:13 Blood leukocytes automated count (number/volume) 8.4 10*3/uL 4.3-11.0 Blood erythrocytes automated count (number/volume) 3.58 10*6/uL 4.35-5.85 Venous blood hemoglobin measurement (mass/volume) 10.9 g/dL 11.5-16.0 Blood hematocrit (volume fraction) 33 % 35-52 Automated erythrocyte mean corpuscular volume 92 [ foz_us] 80-99 Automated erythrocyte mean corpuscular h emoglobin (mass per erythrocyte) 30 pg 25-34 Automated erythrocyte mean corpuscular h emoglobin concentration measurement (mass/volume) 33 g/dL 32-36 Automated erythrocyte distribution width ratio 14. 9 % 10.0- 14.5 Automated blood platelet count (count/volume) 272 10*3/uL 130-400 Automated blood platelet mean volume measurement 9.2 [foz_us] 7.4-10.4 Automated blood neutrophils/100 leukocytes 68 % 42-75 Automated blood lymphocytes/100 leukocytes 16 % 12-44 Blood monocytes/100 leukocytes 12 % 0-12 Automated blood eosinophils/100 leukocytes 5 % 0-10 Automated blood basophils/100 leukocytes 0 % 0-10 Blood neutrophils automated count (number/volume) 5.7 10*3 1.8-7.8 Blood lymphocytes automated count (number/volume) 1.3 10*3 1.0-4.0 Blood monocytes automated count (number/volume) 1. 0 10*3 0.0-1.0 Automated eosinophil count 0.4 10*3/uL 0 .0-0.3 Automated blood basophil count (count/volume) 0.0 10*3/uL 0.0-0.1 Complete blood count (CBC) with automate d white blood cell (WBC) differential - 02/13/19 05:51 Blood leukocytes automated count (number/volume) 11.1 10*3/uL 4.3-11.0 Blood erythrocytes automated count (number/volume) 3.68 10*6/uL 4.35-5.85 Venous blood hemoglobin measurement (mass/volume) 11.1 g/dL 11.5-16.0 Blood hematocrit (volume fraction) 34 % 35-52 Automated erythrocyte mean corpuscular volume 92 [ foz_us] 80-99 Automated erythrocyte mean corpuscular h emoglobin (mass per erythrocyte) 30 pg 25-34 Automated erythrocyte mean corpuscular h emoglobin concentration measurement (mass/volume) 33 g/dL 32-36 Automated erythrocyte distribution width ratio 15. 0 % 10.0- 14.5 Automated blood platelet count (count/volume) 308 10*3/uL 130-400 Automated blood platelet mean volume measurement 9.4 [foz_us] 7.4-10.4 Automated blood neutrophils/100 leukocytes 75 % 42-75 Automated blood lymphocytes/100 leukocytes 14 % 12-44 Blood monocytes/100 leukocytes 10 % 0-12 Automated blood eosinophils/100 leukocytes 2 % 0-10 Automated blood basophils/100 leukocytes 0 % 0-10 Blood neutrophils automated count (number/volume) 8.3 10*3 1.8-7.8 Blood lymphocytes automated count (number/volume) 1.5 10*3 1.0-4.0 Blood monocytes automated count (number/volume) 1. 1 10*3 0.0-1.0 Automated eosinophil count 0.2 10*3/uL 0 .0-0.3 Automated blood basophil count (count/volume) 0.0 10*3/uL 0.0-0.1 Comprehensive metabolic panel - 02/13/19 05:51 Serum or plasma sodium measurement (moles/volume) 138 mmol/L 135-145 Serum or plasma potassium measurement (moles/volume) 4.0 mmol/L 3.6-5.0 Serum or plasma chloride measurement (moles/volume) 102 mmol/L 98-107 Carbon dioxide 27 mmol/L 21-32 Serum or plasma anion gap determination (moles/volume) 9 mmol/L 5-14 Serum or plasma urea nitrogen measurement (mass/volume ) 17 mg/dL 7-18 Serum or plasma creatinine measurement (mass/volume) 0.96 mg/dL 0.60-1.30 Serum or plasma urea nitrogen/creatinine mass ratio 18 NRG Serum or plasma creatinine measurement w ith calculation of estimated glomerular filtration rate 55 NRG Serum or plasma glucose measurement (mass/volume) 94 mg/dL 70-105 Serum or plasma calcium measurement (mass/volume) 8.5 mg/dL 8.5-10.1 Serum or plasma total bilirubin measurement (mass/volu me) 0.2 mg/dL 0.1-1.0 Serum or plasma alkaline phosphatase brayden surement (enzymatic activity/volume) 44 U/L 40-136 Serum or plasma aspartate aminotransfera se measurement (enzymatic activity/volume) 13 U/L 5-34 Serum or plasma alanine aminotransferase measurement (enzymatic activity/volume) < U/L 0-55 Serum or plasma protein measurement (mass/volume) 5.6 g/dL 6.4-8.2 Serum or plasma albumin measurement (mass/volume) 3.1 g/dL 3.2-4.5 CALCIUM CORRECTED 9.2 mg/dL 8.5-10.1 Complete urinalysis with reflex to cultu re - 02/15/19 10:10 Urine color determination YELLOW NRG Urine clarity determination CLEAR NR G Urine pH measurement by test strip 7.5 5-9 Specific gravity of urine by test strip 1.010 1.016-1.022 Urine protein assay by test strip, semi-quantitative NEGATIVE NEGATIVE Urine glucose detection by automated test strip NE GATIVE NEGATIVE Erythrocytes detection in urine sediment by light micr oscopy NEGATIVE NEGATIVE Urine ketones detection by automated test strip NE GATIVE NEGATIVE Urine nitrite detection by test strip NEGATIVE NEGATIVE Urine total bilirubin detection by test strip NEGA TIVE NEGATIVE Urine urobilinogen measurement by automated test strip (mass/volume) 0.2 mg/dL < = 1.0 Urine leukocyte esterase detection by dipstick NEG ATIVE NEGATIVE Automated urine sediment erythrocyte cou nt by microscopy (number/high power field) RARE NRG Automated urine sediment leukocyte count by microscopy (number/high power field) RARE NRG Bacteria detection in urine sediment by light microsco py NEGATIVE NRG Crystals detection in urine sediment by light microsco py NONE NRG Casts detection in urine sediment by light microscopy NONE NRG Mucus detection in urine sediment by light microscopy NEGATIVE NRG Complete urinalysis with reflex to culture NO NRG Encounters ACCT No. Visit Date/Time Discharge Status Pt. Type Provider Facility Loc./Unit Complaint [id number] 02/10/2019 10:20:00 16:30:00 DIS Inpatient ADELINE LOPEZ, NICHELLE V [facility] IRF DEBILITY [id number] 02/08/2019 18:11:00 09:58:00 DIS Inpatient PONCHO CHRISTOPHER MD [facility] 4TH GENERALIZED WEAKNESS [id number] 02/02/2019 15:00:00 17:30:00 DIS Inpatient JERMAIN BRICENO, STEPHANY Campo [facility] 4TH COLON PERFORATION,UTI [id number] 02/01/2019 08:18:00 11:35:00 DIS Outpatient STEPHANY ALY MD [facility] ENDO 1 YR F/U, HX COLON CA [id number] 01/25/2019 05:34:00 11:20:00 DIS Outpatient STEPHANY ALY MD [facility] PREOP COLONOSCOPY [id number] 01/11/2019 08:13:00 23:59:59 CLS Outpatient DARNELL LAZCANO MD, V [facility] ONC [id number] 09/14/2018 08:43:00 00:01:00 DIS Outpatient DARNELL LAZCANO MD, V [facility] ONC [id number] 05/11/2018 08:52:00 00:01:00 DIS Outpatient DARNELL LAZCANO MD, V [facility] ONC [id number] 08/02/2018 08:36:00 10:24:00 DIS Outpatient LIDA BRICENO FACC, EMILY ROQUE CC DS [facility] CATH SYNCOPE AND COLLAPSE [id number] 06/07/2018 10:12:00 14:15:00 DIS Emergency FELTON LESLIE MD [facility] ER FALL/HEAD INJUR Y [id number] 01/12/2018 09:16:00 00:01:00 DIS Outpatient DARNELL LAZCANO MD, V [facility] ONC [id number] 02/21/2018 09:22:00 23:59:59 CLS Outpatient ANNELIESE CARMICHAEL APRN [facility] RAD SCREENING [id number] 01/26/2018 08:58:00 11:28:00 DIS Outpatient STEPHANY ALY MD [facility] ENDO HX COLON CA/SYMPTOMATIC LESION LEFT ABDOMEN [id number] 01/25/2018 09:15:00 09:53:00 DIS Outpatient STEPHANY ALY MD [facility] PREOP COLONOSCOPY [id number] 09/29/2017 10:24:00 018 00:01:00 DIS Outpatient DARNELL LAZCANO MD, V [facility] ONC C18.2 [id number] 07/16/2017 12:35:00 018 16:30:00 DIS Inpatient STEPHANY ALY MD, V [facility] 4TH INCISIONAL/ABDOMINAL/VE NTRAL HERNIA [id number] 07/12/2017 10:13:00 018 14:55:00 DIS Outpatient STEPHANY ALY MD [facility] PREOP INCISIONAL/ABDOMINAL/VE NTRAL HERNIA [id number] 07/06/2017 07:54:00 018 23:59:59 CLS Outpatient ARIS TRINIDAD [facility] CARD R06.02 SOB [id number] 06/30/2017 08:43:00 018 00:01:00 DIS Outpatient DARNELL LAZCANO MD, V [facility] ONC [id number] 06/17/2017 07:10:00 018 23:59:59 CLS Outpatient YORDAN RODRIGUEZ MD [facility] RAD ABD PAIN [id number] 12/31/2016 14:40:00 017 09:40:00 DIS Outpatient DARNELL LAZCANO MD, V [facility] ONC [id number] 02/17/2017 08:42:00 017 23:59:59 CLS Outpatient YORDAN RODRIGUEZ MD [facility] RAD SCREENING MAMMO [id number] 01/11/2017 11:09:00 017 23:59:59 CLS Outpatient YORDAN RODRIGUEZ MD [facility] RAD R05 [id number] 01/08/2017 10:30:00 017 23:59:59 CLS Outpatient YORDAN RODRIGUEZ MD [facility] HH AMENIA [id number] 12/24/2016 12:20:00 23:59:59 CLS Outpatient YORDAN RODRIGUEZ MD [facility] HH ANEMIA/CHF [id number] 12/07/2016 10:45:00 017 12:45:00 DIS Inpatient AYDEN TELLO MD [facility] IRF COPD MYOPATHY [id number] 12/08/2016 07:30:00 017 11:29:00 DIS Inpatient NICHELLE LR DO, [facility] ICU SOA [id number] 12/01/2016 12:12:00 017 11:00:00 DIS Inpatient LAURENT BRICENO, JANICE Castellanos [facility] 4TH SWB-POST OP RT HEMICOLE CTOMY/SEVERE DECONDITIONING [id number] 11/19/2016 10:06:00 017 12:11:00 DIS Inpatient STEPHANY ALY MD, V [facility] 4TH COLON CANCER [id number] 11/17/2016 15:14:00 017 15:49:00 DIS Outpatient STEPHANY ALY MD [facility] PREOP LAPAROSCOPIC RIGHT SANAZ CTOMY [id number] 11/06/2016 08:35:00 017 11:50:00 DIS Outpatient SUAD CASE MD [facility] ENDO SEVERE ANEMIA [id number] 11/04/2016 14:06:00 017 23:59:59 CLS Outpatient SUAD CASE MD [facility] PREOP COLONOSCOPY POSSIBLE EG D [id number] 11/04/2016 13:00:00 017 23:59:59 CLS Preadmit LIDA BRICENO FACC, ALI FACP CCDS [facility] CARD SOB [id number] 10/30/2016 15:30:00 017 23:59:59 CLS Preadmanny HILTON MD, FACC, ALI FACP CCDS [facility] RT SOB [id number] 10/27/2016 12:15:00 017 23:59:59 CLS Preadmanny HILTON MD, FACC, ALI FACP CCDS [facility] CARD SOB [id number] 10/23/2016 22:00:00 017 20:05:00 DIS Inpatient RICHARD BRICENO, SHERYL Jiang [facility] 4TH SEVERE ANEMA,LL Q PAIN,DYSPNEA,FATIGUE [id number] 10/23/2016 10:14:00 017 23:59:59 CLS Outpatient LIDA BRICENO FACC, EMILY ROQUE CC DS [facility] CARD SOB,FATIGUE,OBESITY,PAF [id number] 06/25/2016 12:05:00 017 23:59:59 CLS Outpatient ANNELIESE CARMICHAEL APRN [facility] RAD FALL AT HOME HI T HEAD [id number] 04/10/2016 10:08:00 23:59:59 CLS Outpatient YORDAN RODRIGUEZ MD [facility] RAD ABNORMAL THYROID TESTS [id number] 03/03/2016 08:14:00 016 23:59:59 CLS Outpatient YORDAN RODRIGUEZ MD [facility] RAD SCREENING [id number] 02/27/2015 10:59:00 015 23:59:59 CLS Outpatient YORDAN RODRIGUEZ MD [facility] RAD SCREENING [id number] 12/20/2014 16:34:00 015 23:59:59 CLS Outpatient YORDAN RODRIGUEZ MD [facility] RAD COUGH [id number] 12/17/2014 16:53:00 015 23:59:59 CLS Outpatient YORDAN RODRIGUEZ MD [facility] LABNPT BURNING, FREQUENCY [id number] 11/22/2014 07:22:00 015 08:17:00 DIS Emergency FELTON ELSLIE MD [facility] ER FALL/RIGHT WRIS T INJURY [id number] 02/26/2014 09:44:00 014 23:59:59 CLS Outpatient YORDAN RODRIGUEZ MD [facility] RAD ROUTINE [id number] 02/23/2013 08:46:00 013 23:59:59 CLS Outpatient YORDAN RODRIGUEZ MD [facility] RAD SCREENING [id number] 02/27/2019 09:08:[address] Outpatient YORDAN RODRIGUEZ MD [facility] RAD SCREENING [id number] 12/05/2014 11:53:[address] Inpatient YORDAN RODRIGUEZ MD [facility] CSD ANAPHALAXIS [id number] 02/26/2014 09:50:00 Document Registration [id number] 02/26/2014 09:50:00 Document Registration [id number] 02/26/2014 09:50:00 Document Registration [id number] 02/23/2012 09:52:00 Document Registration [id number] 02/16/2011 09:30:00 Document Registration [id number] 02/13/2010 15:28:00 Document Registration [id number] 08/21/2009 14:49:00 Document Registration [id number] 06/28/2009 14:48:00 Document Registration [id number] 06/13/2009 15:54:00 Document Registration [id number] 04/19/2009 12:23:00 Document Registration [id number] 03/13/2009 10:14:00 Document Registration [id number] 02/01/2009 06:58:00 Document Registration [id number] 11/22/2008 15:47:00 Document Registration
== END 2019-02-06 17:30 | disposition home or self-care (01) | DRG 394 ==
LOC: EDUNIT# 13:31 → ER 13:32 → 4TH 15:00
PROVIDERS: ADMIT Surgery; ATTEND Surgery
DX: K92.89 Other specified diseases of the digestive system (principal); K57.20 Diverticulitis of large intestine with perforation and abscess without bleeding; N30.00 Acute cystitis without hematuria; J45.909 Unspecified asthma, uncomplicated; I48.0 Paroxysmal atrial fibrillation; I10 Essential (primary) hypertension; N20.0 Calculus of kidney; E86.9 Volume depletion, unspecified; J44.9 Chronic obstructive pulmonary disease, unspecified; Z85.038 Personal history of other malignant neoplasm of large intestine; M19.91 Primary osteoarthritis, unspecified site
CPT/HCPCS: 36415; 71045; 74176; 80053; 81000; 83605; 83690; 85007; 85025; 85027; 87040; 87088; 94640; 94664; 94760; 96361; 96374; 96375

== ENCOUNTER 2019-02-08 16:20 | Observation (INO) | payer MEDICARE ==
[~2019-02-08] VITALS: Ht 157 cm; Wt 86.9 kg
[~2019-02-08 16:20] MED LIST changes: +HYDR-3816 PO; +LEVO500T2 PO; -METO-387 PO; -METO-395 PO; +METR500T PO; +MTP100TCR PO; +MTP25TSR PO; +ONDN4T PO
[2019-02-08 17:23] LABS: BASOPHILS % (AUTO) 0 % (0-10); EOSINOPHILS # (AUTO) 0.4 10^3/uL (0.0-0.3); EOSINOPHILS % (AUTO) 5 % (0-10); HEMATOCRIT 34 % (35-52); HEMOGLOBIN 11.3 G/DL (11.5-16.0); LYMPHOCYTES % (AUTO) 11 % (12-44); MEAN CORPUSCULAR HEMOGLOBIN 31 PG (25-34); MEAN CORPUSCULAR HGB CONC 33 G/DL (32-36); MEAN CORPUSCULAR VOLUME 93 FL (80-99); MEAN PLATELET VOLUME 9.5 FL (7.4-10.4); MONOCYTES # (AUTO) 0.9 X 10^3 (0.0-1.0); MONOCYTES % (AUTO) 10 % (0-12); NEUTROPHILS # (AUTO) 6.8 X 10^3 (1.8-7.8); NEUTROPHILS % (AUTO) 74 % (42-75); PLATELET COUNT 250 10^3/uL (130-400); RED CELL DISTRIBUTION WIDTH 14.8 % (10.0-14.5); WHITE BLOOD COUNT 9.1 10^3/uL (4.3-11.0)
[2019-02-08 17:30] LABS: BILIRUBIN,URINE NEGATIVE (NEGATIVE); CLARITY,URINE CLEAR; COLOR,URINE ORANGE; GLUCOSE, URINE (UA) NEGATIVE (NEGATIVE); KETONES,URINE NEGATIVE (NEGATIVE); LEUKOCYTE ESTERASE ,URINE 1+ (NEGATIVE); NITRITE,URINE NEGATIVE (NEGATIVE); PROTEIN,URINE NEGATIVE (NEGATIVE)
[2019-02-08 17:36] LABS: ALANINE AMINOTRANSFERASE 7 U/L (0-55); ALKALINE PHOSPHATASE 56 U/L (40-136); BILIRUBIN,TOTAL 0.3 MG/DL (0.1-1.0); BUN/CREATININE RATIO 13; CALCIUM 8.9 MG/DL (8.5-10.1); CARBON DIOXIDE 29 MMOL/L (21-32); CHLORIDE 101 MMOL/L (98-107); CREATININE SERUM 0.78 MG/DL (0.60-1.30); GFR ESTIMATED > 60; GLUCOSE 109 MG/DL (70-105); POTASSIUM 3.4 MMOL/L (3.6-5.0); SODIUM 138 MMOL/L (135-145); TOTAL PROTEIN 5.6 GM/DL (6.4-8.2)
--- NOTE | 2019-02-08 17:36 | ED General ---
General Chief Complaint: General Problems/Pain Stated Complaint: BILATERAL LEG SWELLING, SORE Nursing Triage Note: PT TO ROOM 10 PER W/C PT CO OF WEAKNESS AND SWELLING OF LOWER EXTREMETIES. PT WAS RELEASED FROM HOSPITAL ON WEDNESDAY. Nursing Sepsis Screen: No Definite Risk Source of Information: Patient Exam Limitations: No Limitations History of Present Illness Date Seen by Provider: Feb 08, 2019 Time Seen by Provider: 17:00 Initial Comments Here with complaint of weakness and swelling to the lowers extremities, specifically the left, since earlier today. She was just released from the hospital after having issues related to perforation of a diverticula. This was treated conservatively in the hospital and did well until Wednesday when she was discharged. She returns today with the weakness. She was apparently off Eliquis until Wednesday. She is restarted that now. States that she has a lump behind the calf on the left leg and the left leg is swollen greater than the right. She has been elevating her legs. She is on Eliquis for atrial fibrillation. Timing/Duration: 12 Hours Severity: Moderate Modifying Factors: improves with Rest Associated Systoms: No Chest Pain, No Cough, No Fever/Chills, No Nausea/Vomiting, No Shortness of Air; Weakness Allergies and Home Medications Allergies Coded Allergies: Penicillins (Unverified Allergy, Mild, 02/02/19) iodine (Unverified Allergy, Mild, 02/02/19) Sulfa (Sulfonamide Antibiotics) (Verified Allergy, Unknown, 02/02/19) sulfamethoxazole (Verified Allergy, Unknown, 02/02/19) trimethoprim (Verified Allergy, Unknown, 02/02/19) Home Medications Acetaminophen 500 Mg Tablet, 500 MG PO BID, (Reported) Apixaban 2.5 Mg Tablet, 2.5 MG PO BID, (Reported) Calcium Carbonate/Vitamin D3 1 Each Tablet, 1 TAB PO DAILY, (Reported) Cholecalciferol (Vitamin D3) 1,000 Unit Capsule, 1,000 UNIT PO DAILY, (Reported) Hydrocodone/Acetaminophen 1 Each Tablet, 1-2 TAB PO Q4H Prescribed by: NUBIA AREVALO on 02/06/19 163 Levofloxacin 500 Mg Tablet, 500 MG PO DAILY Prescribed by: NUBIA AREVALO on 02/06/19 1639 Metoprolol Succinate 100 Mg Tab.er.24h, 100 MG PO DAILY, (Reported) Metronidazole 500 Mg Tablet, 500 MG PO BID Prescribed by: NUBIA AREVALO on 02/06/19 1639 Montelukast Sodium 10 Mg Tablet, 10 MG PO HS, (Reported) Multivitamin 1 Each Tablet, 1 EACH PO DAILY, (Reported) Ondansetron HCl 4 Mg Tab, 4 MG PO Q4H PRN for NAUSEA/VOMITING-1ST LINE Prescribed by: NUBIA AREVALO on 02/06/19 1639 Patient Home Medication List Home Medication List Reviewed: Yes Review of Systems Review of Systems Constitutional: see HPI; No chills, No fever EENTM: no symptoms reported Respiratory: no symptoms reported Cardiovascular: no symptoms reported Gastrointestinal: see HPI; No diarrhea, No nausea, No vomiting Genitourinary: No dysuria, No pain Musculoskeletal: see HPI, muscle pain, muscle stiffness Skin: No change in color, No lesions Psychiatric/Neurological: See HPI; Denies Headache; Weakness All Other Systems Reviewed Negative Unless Noted: Yes Past Fyrnuhu-Enswsu-Rvgszn Hx Past Med/Social Hx: Reviewed Nursing Past Med/Soc Hx Patient Social History Alcohol Use: Denies Use Recreational Drug Use: No Smoking Status: Never a Smoker 2nd Hand Smoke Exposure: No Recent Foreign Travel: No Contact w/Someone Who Travel: No Recent Infectious Disease Expo: No Recent Hopitalizations: No Physical Abuse: No Sexual Abuse: No Immunizations Up To Date Tetanus Booster (TDap): Unknown PED Vaccines UTD: No Date of Pneumonia Vaccine: Dec 12, 2018 Date of Influenza Vaccine: Dec 12, 2018 Seasonal Allergies Seasonal Allergies: Yes Past Medical History Surgeries: Yes (cataracts removed, COLON RESECTION, FOOT SX, LOOP MONITOR) Eye Surgery, Gallbladder Respiratory: Yes Asthma Currently Using CPAP: No Currently Using BIPAP: No Cardiac: Yes Atrial Fibrillation, Hypertension Neurological: No Reproductive Disorders: No Sexually Transmitted Disease: No HIV/AIDS: No Genitourinary: Yes (dribbling) Gastrointestinal: Yes ( colon ca, ) Diverticulosis, Chronic Diarrhea Musculoskeletal: Yes Arthritis Endocrine: No HEENT: Yes (GLASSES) Cataract Loss of Vision: Denies Hearing Impairment: Deaf Cancer: Yes Colon Did You Recieve Any Treatments: Yes What Type of Treatment Did You: Surgical Intervention Psychosocial: No Integumentary: No Recent Skin Changes Blood Disorders: Yes (anemia ) Adverse Reaction/Blood Tranf: No (HAS HAD BLOOD WITH NO REACTION) Family Medical History Reviewed Nursing Family Hx Cancer around heart 19 FATHER Cardiovascular disease 19 MOTHER Congenital heart disease 19 MOTHER Hypertension 19 MOTHER Respiratory disorder 19 FATHER (lung cancer) No Pertinent Family Hx Physical Exam Vital Signs Vital Signs - First Documented 02/08/19 16:30 Temp 36.8 Pulse 77 Resp 18 B/P (MAP) 183/88 (119) Pulse Ox 96 Capillary Refill : Less Than 3 Seconds Height, Weight, BMI Height: 5'2.00" Weight: 180lbs. 0.0oz. 81.253953ue; 73.00 BMI Method:Stated General Appearance: No Apparent Distress, WD/WN HEENT: PERRL/EOMI, Pharynx Normal Neck: Non Tender, Supple Respiratory: Lungs Clear, Normal Breath Sounds Cardiovascular: Regular Rate, Rhythm, No Murmur Gastrointestinal: Soft, Tenderness (mild diffuse but states better than prev ious) Back: Normal Inspection, No CVA Tenderness, No Vertebral Tenderness Extremity: Calf Tenderness (left), Swelling (left leg greater than right with swelling.) Neurologic/Psychiatric: Alert, Oriented x3 Skin: Normal Color, Warm/Dry Progress/Results/Core Measures Suspected Sepsis Recent Fever Within 48 Hours: No Infection Criteria Present: None New/Unexplained Altered Menta: No Sepsis Screen: No Definite Risk SIRS Temperature: Pulse: 77 Respiratory Rate: 18 Laboratory Tests 02/08/19 16:45: White Blood Count 9.1 Blood Pressure 183 /88 Mean: 119 Laboratory Tests 02/08/19 16:45: Creatinine 0.78, Platelet Count 250, Total Bilirubin 0.3 Results/Orders Lab Results Laboratory Tests Test 02/08/19 16:45 02/08/19 17:22 Range/Units White Blood Count 9.1 4.3-11.0 10^3/uL Red Blood Count 3.66 L 4.35-5.85 10^6/uL Hemoglobin 11.3 L 11.5-16.0 G/DL Hematocrit 34 L 35-52 % Mean Corpuscular Volume 93 80-99 FL Mean Corpuscular Hemoglobin 31 25-34 PG Mean Corpuscular Hemoglobin Concent 33 32-36 G/DL Red Cell Distribution Width 14.8 H 10.0-14.5 % Platelet Count 250 130-400 10^3/uL Mean Platelet Volume 9.5 7.4-10.4 FL Neutrophils (%) (Auto) 74 42-75 % Lymphocytes (%) (Auto) 11 L 12-44 % Monocytes (%) (Auto) 10 0-12 % Eosinophils (%) (Auto) 5 0-10 % Basophils (%) (Auto) 0 0-10 % Neutrophils # (Auto) 6.8 1.8-7.8 X 10^3 Lymphocytes # (Auto) 1.0 1.0-4.0 X 10^3 Monocytes # (Auto) 0.9 0.0-1.0 X 10^3 Eosinophils # (Auto) 0.4 H 0.0-0.3 10^3/uL Basophils # (Auto) 0.0 0.0-0.1 10^3/uL Sodium Level 138 135-145 MMOL/L Potassium Level 3.4 L 3.6-5.0 MMOL/L Chloride Level 101 98-107 MMOL/L Carbon Dioxide Level 29 21-32 MMOL/L Anion Gap 8 5-14 MMOL/L Blood Urea Nitrogen 10 7-18 MG/DL Creatinine 0.78 0.60-1.30 MG/DL Estimat Glomerular Filtration Rate > 60 BUN/Creatinine Ratio 13 Glucose Level 109 H 70-105 MG/DL Calcium Level 8.9 8.5-10.1 MG/DL Corrected Calcium 9.7 8.5-10.1 MG/DL Total Bilirubin 0.3 0.1-1.0 MG/DL Aspartate Amino Transf (AST/SGOT) 29 5-34 U/L Alanine Aminotransferase (ALT/SGPT) 7 0-55 U/L Alkaline Phosphatase 56 40-136 U/L Total Protein 5.6 L 6.4-8.2 GM/DL Albumin 3.0 L 3.2-4.5 GM/DL Urine Color ORANGE Urine Clarity CLEAR Urine pH 6.0 5-9 Urine Specific [place] 1.020 1.016-1.022 Urine Protein NEGATIVE NEGATIVE Urine Glucose (UA) NEGATIVE NEGATIVE Urine Ketones NEGATIVE NEGATIVE Urine Nitrite NEGATIVE NEGATIVE Urine Bilirubin NEGATIVE NEGATIVE Urine Urobilinogen 0.2 < = 1.0 MG/DL Urine Leukocyte Esterase 1+ H NEGATIVE Urine RBC (Auto) 1+ H NEGATIVE Urine RBC 2-5 H /HPF Urine WBC 5-10 H /HPF Urine Squamous Epithelial Cells 5-10 /HPF Urine Crystals NONE /LPF Urine Bacteria NEGATIVE /HPF Urine Casts NONE /LPF Urine Mucus NEGATIVE /LPF Urine Culture Indicated NO My Orders Orders - ANUJ,FELTON D MD Cbc With Automated Diff (02/08/19 17:05) Comprehensive Metabolic Panel (02/08/19 17:05) Ua Culture If Indicated (02/08/19 17:05) Ed Iv/Invasive Line Start (02/08/19 17:05) Apixaban Tablet (Eliquis Tablet) (02/08/19 18:15) Vital Signs/I&O 02/08/19 16:30 Temp 36.8 Pulse 77 Resp 18 B/P (MAP) 183/88 (119) Pulse Ox 96 Capillary Refill : Less Than 3 Seconds Blood Pressure Mean: 119 POS Progress Note : Progress Note Seen and evaluated. IV, labs and UA ordered. I did discuss the case with Dr. Villatoro, on-call for hospitalist to just discharged her. We will consider observation visit and possible admission to inpatient rehabilitation as she is somewhat deconditioned after several days in the hospital and the recent i llnesses associated with that. I am concerned about possible DVT in the left lower extremity. She will need ultrasound evaluation but she is on Eliquis and we will continue that. Monitor patient. 1810: Eliquis 2.5 mg by mouth. Labs reviewed. Due to the weakness and deconditioning, patient will be admitted observation status. Patient agrees. I did discuss the case with Dr. Villatoro for accepts patient for observation admission. Departure Communication (Admissions) Time/Spoke to Admitting Phy: 18:10 Impression Primary Impression: Generalized weakness Additional Impression: Physical deconditioning Disposition: ADMITTED INPATIENT Condition: Stable Admissions Decision to Admit Reason: Admit from ER (General) Decision to Admit/Date: Feb 08, 2019 Time/Decision to Admit Time: 18:10 Departure-Patient Inst. Referrals: YORDAN RODRIGUEZ MD (PCP/Family) Primary Care Physician FELTON LESLIE MD Feb 08, 2019 17:36 POS
[2019-02-08 17:40] LABS: BACTERIA,URINE NEGATIVE /HPF
[2019-02-08] MEDS ORDERED: APIXABAN 2.5 MG (ELIQUIS) TABLET PO ONE (18:15)
--- NOTE | 2019-02-08 19:00 | NUR ---
SRUTHI SYKES admitted to room 411-1, with an admitting diagnosis of POSSIBLE DVT AND WEAKNESS, on 02/08/19 from via ED, accompanied by STAFF.SRUTHI SYKES introduced to surroundings, call light, bed controls, phone, TV, temperature control, lights, meal times, smoking policy, visitor policy, side rail policy, bathrooms and showers. Patient Rights given to patient in the handbook. SRUTHI SYKES verbalizes understanding that [facility] is not responsible for the loss or damage to any personal effects or valuables that are kept in the patients posession during their hospitalization.
[2019-02-08] MEDS ORDERED: ONDANSETRON 4 MG/2 ML (SDV) Z0FRAN IV PRN (19:30)
[2019-02-08] MEDS ORDERED: CATHETER FLUSH 10 ML SYR IV PRN (19:30)
[2019-02-08 19:42] VITALS: BP 214/98
[2019-02-08] MEDS: CATHETER FLUSH 10 ML SYR IV SCH (22:09)
[2019-02-08] MEDS ORDERED: MELATONIN 3 MG TABLET ONE (22:29)
[2019-02-08] MEDS: MELATONIN 3 MG TABLET PO SCH (22:34)
[2019-02-09] VITALS: BP 188/79
[2019-02-09 04:00] VITALS: BP 170/72
--- NOTE | 2019-02-09 04:12 | NUR ---
PT HAS ADMIT DIAGNOSIS OF POSSIBLE DVT. BLE ARE WARM, RED AND SWOLLEN. SHE DOES QUALIFY FOR SCD'S HOWEVER D/T TO POSSIBLE DVT SCD'S WERE LEFT OFF OF PT. SHE DID TAKE ELIQUIS DOSE IN ED PRIOR TO ARRIVAL TO ROOM.
[2019-02-09 06:40] LABS: BASOPHILS % (AUTO) 0 % (0-10); EOSINOPHILS # (AUTO) 0.5 10^3/uL (0.0-0.3); EOSINOPHILS % (AUTO) 5 % (0-10); HEMATOCRIT 34 % (35-52); HEMOGLOBIN 10.9 G/DL (11.5-16.0); LYMPHOCYTES % (AUTO) 12 % (12-44); MEAN CORPUSCULAR HEMOGLOBIN 31 PG (25-34); MEAN CORPUSCULAR HGB CONC 33 G/DL (32-36); MEAN CORPUSCULAR VOLUME 94 FL (80-99); MONOCYTES % (AUTO) 12 % (0-12); NEUTROPHILS # (AUTO) 6.1 X 10^3 (1.8-7.8); NEUTROPHILS % (AUTO) 71 % (42-75); PLATELET COUNT 235 10^3/uL (130-400); RED CELL DISTRIBUTION WIDTH 14.7 % (10.0-14.5); WHITE BLOOD COUNT 8.6 10^3/uL (4.3-11.0)
[2019-02-09] MEDS: CATHETER FLUSH 10 ML SYR IV SCH ×3 (06:50→19:53)
[2019-02-09 07:11] LABS: ALANINE AMINOTRANSFERASE 11 U/L (0-55); ALBUMIN 2.9 GM/DL (3.2-4.5); ALKALINE PHOSPHATASE 53 U/L (40-136); BILIRUBIN,TOTAL 0.3 MG/DL (0.1-1.0); BUN/CREATININE RATIO 11; CALCIUM 8.4 MG/DL (8.5-10.1); CARBON DIOXIDE 27 MMOL/L (21-32); CHLORIDE 101 MMOL/L (98-107); CREATININE SERUM 0.74 MG/DL (0.60-1.30); GFR ESTIMATED > 60; GLUCOSE 107 MG/DL (70-105); POTASSIUM 3.2 MMOL/L (3.6-5.0); SODIUM 140 MMOL/L (135-145); TOTAL PROTEIN 5.3 GM/DL (6.4-8.2)
[2019-02-09 08:00] VITALS: BP 179/84
[2019-02-09] MEDS ORDERED: KCL 20 MEQ TAB (K-DUR) PO NR (09:00)
--- NOTE | 2019-02-09 09:05 | Diagnostic Imaging Report ---
PROCEDURE: US left lower extremity venous. TECHNIQUE: Multiple real-time grayscale images were obtained over the left lower extremity in various projections. Additional duplex Doppler and color Doppler images were also obtained. INDICATION: Left leg swelling EXAMINATION: Grayscale and color Doppler evaluation of the deep veins of the left lower extremity were performed with waveform analysis. FINDINGS: Continuous venous flow is present. No intraluminal filling defect is identified. There is normal compressibility and response to augmentation. No abnormal perivascular fluid collection is identified. IMPRESSION: No ultrasound evidence of left lower extremity deep venous thrombosis. Dictated by: Dictated on workstation # [id number]
[2019-02-09] MEDS: APIXABAN 2.5 MG (ELIQUIS) TABLET PO SCH ×2 (09:07→19:53)
--- NOTE | 2019-02-09 09:17 | NUR ---
CM DISCHARGE PLANNING: New order for IRF to evaluate. Choice form presented to patient et she chose [facility]. Notified IRF coordinator June of referral. Signed choice form placed on chart.
--- NOTE | 2019-02-09 09:25 | Short Stay Summary-Hospitalist ---
History of Present Illness HPI/Chief Complaint Pt is an 83-year-old female well-known to me from recent admission due to bowel perforation. She was discharged home less than 2 days ago and though she was doing well in the hospital had progressive weakness and returned to the emergency room for evaluation. She also thought she had some lower extremity ed katty and was worried about blood clot in her legs. She had been off her anticoagulation during her recent hospitalization in case surgery was indicated. She was unable to maintain her ADLs at home. She was admitted for observation. She was seen by physical therapy and occupational therapy this morning and reports she is feeling better. Labs were done and were unremarkable. She is still worried about her ability to function independently at home though. Exam Limitations: no limitations Date Seen 02/09/19 Time Seen by a Provider: 08:45 Attending Physician Poncho Villatoro MD PCP Eddy Max MD Referring Physician Date of Admission Feb 08, 2019 at 18:11 Home Medications & Allergies Home Medications Reviewed patient Home Medication Reconciliation performed by pharmacy medication reconciliations apartment maintenance technician and/or nursing. Patients Allergies have been reviewed. Allergies Allergies Coded Allergies Penicillins (Unverified Allergy, Mild, 02/02/19) iodine (Unverified Allergy, Mild, 02/02/19) Sulfa (Sulfonamide Antibiotics) (Verified Allergy, Unknown, 02/02/19) sulfamethoxazole (Verified Allergy, Unknown, 02/02/19) trimethoprim (Verified Allergy, Unknown, 02/02/19) Past Psksnpz-Ftjkog-Iuonlf Hx Past Med/Social Hx: Reviewed Nursing Past Med/Soc Hx Patient Social History Alcohol Use: Denies Use Recreational Drug Use: No Smoking Status: Never a Smoker 2nd Hand Smoke Exposure: No Physical Abuse Screen: No Sexual Abuse: No Recent Foreign Travel: No Contact w/other who traveled: No Recent Hopitalizations: No Recent Infectious Disease Expo: No Immunizations Up To Date Tetanus Booster (TDap): Unknown Pediatric: No Date of Pneumonia Vaccine: Dec 12, 2018 Date of Influenza Vaccine: Dec 12, 2018 Seasonal Allergies Seasonal Allergies: Yes Past Medical History Surgeries: Eye Surgery, Gallbladder Respiratory: Chronic Bronchitis Currently Using CPAP: No Currently Using BIPAP: No Cardiac: Atrial Fibrillation, Hypertension Reproductive: No Sexually Transmitted Disease: No HIV/AIDS: No Gastrointestinal: Diverticulosis, Chronic Diarrhea Musculoskeletal: Arthritis HEENT: Cataract Loss of Vision: Denies Hearing Impairment: Deaf Cancer: Colon Did You Recieve Any Treatments: Yes What Type of Treatment Did You: Surgical Intervention Skin/Integumentary: Recent Skin Changes History of Blood Disorders: Yes (anemia ) Adverse Reaction to Blood Rice: No (HAS HAD BLOOD WITH NO REACTION) Family History Reviewed Nursing Family Hx Cancer around heart 19 FATHER Cardiovascular disease 19 MOTHER Congenital heart disease 19 MOTHER Hypertension 19 MOTHER Respiratory disorder 19 FATHER (lung cancer) No Pertinent Family Hx Review of Systems Constitutional: No chills, No fever; weakness EENTM: no symptoms reported Respiratory: No cough; dyspnea on exertion; No orthopnea Cardiovascular: No chest pain, No palpitations Gastrointestinal: No abdominal pain, No constipation Genitourinary: no symptoms reported Musculoskeletal: muscle weakness Skin: no symptoms reported Psychiatric/Neurological: No Symptoms Reported Physical Exam Physical Exam Vital Signs Vital Signs - First Documented 02/08/19 02/08/19 16:30 19:00 Temp 36.8 Pulse 77 Resp 18 B/P (MAP) 183/88 (119) Pulse Ox 96 O2 Delivery Room Air Capillary Refill : Less Than 3 Seconds Height, Weight, BMI Height: 5'2.00" Weight: 180lbs. 0.0oz. 81.589305ox; 35.25 BMI Method:Stated General Appearance: No Apparent Distress, WD/WN HEENT: PERRL/EOMI, Pharynx Normal Neck: Non Tender, Supple Respiratory: Lungs Clear, Normal Breath Sounds Cardiovascular: Regular Rate, Rhythm, No Edema, No Murmur Gastrointestinal: Normal Bowel Sounds, Non Tender, Soft; No Distended, No Guarding, No Rebound Extremity: Calf Tenderness (left), Swelling (left > RIGHT BUT PRESENT BILATERALLY) Neurologic/Psychiatric: Alert, Oriented x3, Normal Mood/Affect; No Aphasia, No Facial Droop Skin: Normal Color, Warm/Dry Results Results/Procedures Labs Laboratory Tests 02/08/19 16:45 02/09/19 05:46 Patient resulted labs reviewed. 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 THEY ARE SWOLLEN, RED AND WARM TO THE TOUCH. PONCHO VILLATORO MD Feb 09, 2019 09:25 POS
--- NOTE | 2019-02-09 09:40 | Physical Therapy Evaluation ---
PT Evaluation-General Medical Diagnosis Admission Date Feb 08, 2019 at 18:11 Medical Diagnosis: LE swelling and weakness Onset Date: Feb 08, 2019 Therapy Diagnosis Therapy Diagnosis: weakness Height/Weight Height (Feet): 5 Height (Inches): 2.00 Weight (Pounds): 180 Weight (Ounces): 0.0 Precautions Precautions/Isolations: Fall Prevention, Standard Precautions Weight Bear Status Right Lower Extremity: Right Weight Bearing/Tolerated Left Lower Extremity: Left Weight Bearing/Tolerated Referral Physician: Irving Reason for Referral: Evaluation/Treatment Medical History Pertinent Medical History: Atrial Fib, Arthritis, COPD, Diverticulitis, HTN Current History EMS secondary to weakness after discharged from prior hospitalization on 02/06 Reviewed History: Yes Social History Home: Single Level Current Living Status: Alone Entry Into Home: Stairs With Railing PT Steps Into Home: 2 Prior Prior Level of Function SCALE: Activities may be completed with or without assistive devices. 0-Pluooyxyja-clpuuxz completes the activity by him/herself with no assistance from a helper. 5-Set-up or Clean-up Assistance-helper sets up or cleans up; patient completes activity. Bertrand assists only prior to or following the activity. 4-Supervision or Touching Assistance-helper provides verbal cues and/or touching/steadying and/or contact guard assistance as patient completes activity. Assistance may be provided throughout the activity or intermittently. 3-Partial/Moderate Assistance-helper does LESS THAN HALF the effort. Bertrand lifts, holds or supports trunk or limbs, but provides less than half the effort. 2-Substantial/Maximal Assistance-helper does MORE THAN HALF the effort. Bertrand lifts or holds trunk or limbs and provides more than half the effort. 7-Nhnasxfyn-tpgiqj does ALL the effort. Patient does none of the effort to comp lete the activity. Or, the assistance of 2 or more helpers is required for the patient to complete the activity. If activity was not attempted, code reason: 7-Patient Refused. 9-Not Applicable-not attempted and the patient did not perform the activity before the current illness, exacerbation or injury. 10-Not Attempted due to Environmental Limitations-(lack of equipment, weather restraints, etc.). 88-Not Attempted due to Medical Conditions or Safety Concerns. Bed Mobility: 6 Transfers (B,C,W/C): 6 Gait: 6 Stairs: 6 Indoor Mobility (Ambulation): Independent Stairs: Independent Prior Devices Use: None PT Evaluation-Current Subjective Patient agrees to PT. Agrees to walk in hallway and transfer to chair. Would like to be able to go home without concern about re-admit. Reports no specific pain, just general body aches. Pain Numeric Pain Scale: 0-No Pain Location: No Pain Reported Objective Patient Orientation: Normal For Age ROM/Strength ROM Lower Extremities WFL; L slightly limited d/t swelling Strength Lower Extremities Grossly 3/5 Integumentary/Posture Integumentary See nursing notes Bowel Incontinence: No Bladder Incontinence: No Posture WFL Neuromuscular (Tone, Coordination, Reflexes) Grossly intact Sensory Vision: Wears Glasses (cataracts) Hearing: Impaired Transfers Roll Left to Right (QC): 4 Sit to Lying (QC): 4 Lying to Sitting/Side of Bed(Q: 4 Sit to Stand (QC): 4 Chair/Jhm-tu-Wvgiz Xfer(QC): 4 Car Transfer (QC): 10 SBA bed mobility; CGA transfers Gait Does the Patient Walk?: Yes Mode of Locomotion: Walk Anticipated Mode of Locomotion: Walk Walk 10 feet (QC): 4 Walk 50 ft with 2 Turns(QC): 4 Walk 150 ft (QC): 4 Walking 10ft/uneven surface-QC: 88 Distance: 150' Gait Assistive Device: FWW Comments/Gait Description Very slow pace; normal reciprocal pattern with small steps Wheelchair Training Does the Pt Use a Wheelchair?: No Wheel 50 ft with 2 turns (QC): 9 Wheel 150 ft (QC): 9 Type of Wheelchair: Manual Stairs 1 Step (curb) (QC): 88 4 Steps (QC): 88 12 Steps (QC): 9 Balance Sitting Static: Normal Sitting Dynamic: Normal Standing Static: Normal Standing Dynamic: Normal Picking up an Object (QC): 88 Assessment/Needs Patient able to perform bed mobility safely with SBA. Ambulates 150' with FWW CGA at a very slow but consistent pace with normal reciprocal pattern. Reported LE fatigue at conclusion of ambulation. Patient seated in chair at conclusion of treatment with legs elevated and needs met. Rehab Potential: Fair PT [place] Erector Helper Goals [place] Erector Helper Goals PT [place] Erector Helper Goals Time Frame: Feb 24, 2019 Roll Left & Right (QC): 6 Sit to Lying (QC): 6 Lying-Sitting on Side/Bed(QC): 6 Sit to Stand (QC): 6 Chair/Car-wl-Cdxkv Xfer(QC): 6 Toilet Transfer (QC): 6 Car Transfer (QC): 6 Does the Patient Walk: Yes Walk 10 feet (QC): 6 Walk 50ft with 2 Turns (QC): 6 Walk 150 ft (QC): 6 Walking 10ft on Uneven Surface: 6 1 Step (curb) (QC): 6 4 Steps (QC): 6 12 Steps (QC): 9 Picking up an Object (QC): 6 Does the Pt use WC or Scooter?: No Type: N/A Type: N/A PT Plan Problem List Problem List: Activity Tolerance, Functional Strength, Safety, Balance, Gait, Transfer, Bed Mobility Treatment/Plan Treatment Plan: Continue Plan of Care Treatment Plan: Bed Mobility, Education, Functional Activity Shari, Functional Strength, Gait, Safety, Therapeutic Exercise, Transfers Treatment Duration: Feb 24, 2019 Frequency: 6 times per week Estimated Hrs Per Day: .25 hour per day Patient and/or Family Agrees t: Yes Time/GCodes Time In: 910 Time Out: 923 Total Billed Treatment Time: 13 Total Billed Treatment 1 visit EVLowC 13min MICHELLE ROLLINS PT Feb 09, 2019 09:40 POS
[2019-02-09] MEDS ORDERED: metroNIDAZOLE 500 MG (FLAGYL) TAB PO NR (09:49)
--- NOTE | 2019-02-09 10:28 | NUR ---
IRF Evaluation Order received to evaluate patient for the ARU. Chart review complete and findings discussed with Dr. Centeno - patient accepted for admission. Dr. Villatoro notified. Anticipate admission, 02/10/19. Thank you for this referral. Addendum: 02/09/19 at 1539 by WILMER Nuno TRIMBLE SS 1500 Met with patient to discuss details of rehabilitation program. Patient states she is familiar with the program and is agreeable to required therapy regimen and admission. SS/CM notified.
[2019-02-09] MEDS ORDERED: LEVOFLOXACIN 500 MG TAB (LEVAQUIN) PO SCH (11:00)
[2019-02-09 12:00] VITALS: BP 144/69
--- NOTE | 2019-02-09 13:16 | Occupational Therapy Eval ---
OT Evaluation-General/PLF Medical Diagnosis Admission Date Feb 08, 2019 at 18:11 Medical Diagnosis: LE swelling and weakness Onset Date: Feb 08, 2019 Therapy Diagnosis Therapy Diagnosis: impaired ADLs and functional mobility Height/Weight Height (Feet): 5 Height (Inches): 2.00 Weight (Pounds): 180 Weight (Ounces): 0.0 Precautions Precautions/Isolations: Fall Prevention, Standard Precautions Safety Interventions: None Referral Physician: Irving Referral Reason: Activity Tolerance, Self Care, Evaluation/Treatment, Strengthening/ROM Medical History Pertinent Medical History: Atrial Fib, Arthritis, COPD, Diverticulitis, HTN Additional Medical History Chronic Bronchitis, Current History Pt admitted to hospital 02/08/19 by EMS secondary to weakness after discharging from hospital on 02/06/19. Social History Home: Single Level Current Living Status: Alone Entry Into Home: Stairs With Railing Steps Into Home: 2 ADL-Prior Level of Function SCALE: Activities may be completed with or without assistive devices. 0-Efvynvwmah-gskehpr completes the activity by him/herself with no assistance from a helper. 5-Set-up or Clean-up Assistance-helper sets up or cleans up; patient completes activity. [place] assists only prior to or following the activity. 4-Supervision or Touching Assistance-helper provides verbal cues and/or touching/steadying and/or contact guard assistance as patient completes activity. Assistance may be provided throughout the activity or intermittently. 3-Partial/Moderate Assistance-helper does LESS THAN HALF the effort. [place] lifts, holds or supports trunk or limbs, but provides less than half the effort. 2-Substantial/Maximal Assistance-helper does MORE THAN HALF the effort. [place] lifts or holds trunk or limbs and provides more than half the effort. 9-Eeahokxdd-snzjhf does ALL the effort. Patient does none of the effort to complete the activity. Or, the assistance of 2 or more helpers is required for the patient to complete the activity. If activity was not attempted, code reason: 7-Patient Refused. 9-Not Applicable-not attempted and the patient did not perform the activity before the current illness, exacerbation or injury. 10-Not Attempted due to Environmental Limitations-(lack of equipment, weather restraints, etc.). 88-Not Attempted due to Medical Conditions or Safety Concerns. ADL PLOF Comments Prior to her recent hospitalization, pt was independent with all ADLs including bathing, dressing, cleaning, and cooking. 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 Pt declined having pain. 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) Dentures/Partials: Yes Hand Dominance: Right Upper Extremity ROM WFL, BUE shoulder flexion to approximately 150 degrees, Upper Extremity Coordination no deficits noted Upper Extremity Sensation pt denied having tingling/numbness Upper Extremity Strength grossly 3+/5 MMT ADL-Treatment Eating (QC): 6 (Per pt report, she had no difficulty opening containers, cutting food, and bringing food to her mouth) Oral Hygiene (QC): 7 Shower/Bathe Self (QC): 7 Upper Body Dressing (QC): 7 Lower Body Dressing (QC): 7 On/Off Footwear (QC): 1 (Pt requires total assist with socks, she states she is unable to bring them up in figure 4 position like she normally does due to the increased swelling BLE.) Toileting Hygiene (QC): 7 Toilet Transfer (QC): 7 Other Treatments Pt sitting upright in recliner at start of session. Pt provided information about PLOF and home set up. Pt attempted to don/doff socks but unsuccessful with task requiring total assist. Pt declined the need to be repositioned and stated she did not want her feet elevated at this time but possibly after lunch. Post OT session, pt seated upright in chair, finishing lunch with call light in reach and all needs met. Education OT Patient Education: Correct positioning, Energy conservation, Modified ADL techniques, Progress toward Goal/Update tx plan, Purpose of tx/functional activities Teaching Recipient: Patient Teaching Methods: Discussion Response to Teaching: Verbalize Understanding OT Intermediate Goals Intermediate Goals Time Frame: Feb 17, 2019 Eating (QC): 6 Oral Hygiene (QC): 6 Toileting Hygiene (QC): 6 Shower/Bathe Self (QC): 6 Upper Body Dressing (QC): 6 Lower Body Dressing (QC): 6 On/Off Footwear (QC): 6 Additional Goals: 1-Demonstrate ADL Tasks, 2-Verbalize Understanding, 3- ImproveStrength/Shari 1=Demonstrate adherence to instructed precautions during ADL tasks. 2=Patient will verbalize/demonstrate understanding of assistive devices/meghann fications for ADL. 3=Patient will improve strength/tolerance for activity to enable patient to perform ADL's. OT Education/Plan Problem List/Assessment Assessment: Decreased Activ Tolerance, Decreased UE Strength, Impaired I ADL's, Impaired Self-Care Skills Pt would benefit from skilled OT services in order to increase BUE strength and functional endurance in order to increase independence with ADLs and for return to work. Discharge Recommendations Plan/Recommendations: Continue POC Treatment Plan/Plan of Care Treatment,Training & Education: Yes Patient would benefit from OT for education, treatment and training to promote independence in ADL's, mobility, safety and/or upper extremity function for ADL's. Plan of Care: ADL Retraining, Caregiver Training, Functional Mobility, UE Funct Exercise/Act Treatment Duration: Feb 17, 2019 Frequency: 5 times per week Estimated Hrs Per Day: .25 hour per day Agreement: Yes Rehab Potential: Good Time/GCodes Start Time: 12:50 Stop Time: 13:05 Total Time Billed (hr/min): 15 Billed Treatment Time 1, BARRERA BLACKMAN OT Feb 09, 2019 13:16 POS
[2019-02-09] MEDS ORDERED: ACETAMINOPHEN 500 MG TAB (TYLENOL) PO PRN (13:45)
[2019-02-09] MEDS ORDERED: meTOprolol SUCCINATE 100 MG (TOPROL XL) TAB PO NR (13:45)
[2019-02-09] MEDS ORDERED: HYDROcodone/APAP 5 MG/325 MG (LORTAB) TAB PO PRN (13:45)
--- NOTE | 2019-02-09 14:05 | NUR ---
Pastoral care visit, pt coping well, a member of [employer].
--- NOTE | 2019-02-09 15:44 | NUR ---
RD ASSESSMENT PMHx: afib; HTN; chronic diarrhea; diverticulosis; colon CA PT INTERACTION: Pt was awake and pleasant during nutrition assessment. Pt states current appetite is "getting better", but had been poor for some time. Note pt avg PO intake of 75% x1d, per chart review. Pt states trying to avoid nuts/seeds at home, and states no recent issues with chewing/swallowing food at this time. Pt states no recent issues with n/v/c/d at this time, and that her last BM was 02/09. Note pt not currently on bowel regimen, per chart review. Pt states fluctuating weight d/t to fluid buildup. Note unable to determine recent wt hx, per chart review. ABNORMAL NUTRITION-RELATED LAB VALUES LOW: K 3.2; Ca 8.4; Pro 5.3; alb 2.9 HIGH: glu 107 Est. kcal needs: 2794-8491 kcal | 15-20 kcal/kg Est. Pro needs: 70-87 g Pro | 0.8-1.0 g Pro/kg PES STATEMENT: Given pt's current PO intake, no nutrition diagnosis at this time (NO-1.1) INTERVENTION: Continue with current diet order of 2000mg Sodium diet. Will continue to follow and reassess as pt needs and status change. MONITOR/EVALUATE: PO Intake; Plan of Care; Hydration Status; Weight Status; Lab Values Kenneth Alicia, , RD, LD
[2019-02-09 16:17] VITALS: BP 173/78
[2019-02-09] MEDS: MELATONIN 3 MG TABLET PO SCH (19:52)
[2019-02-09] MEDS: metroNIDAZOLE 500 MG (FLAGYL) TAB PO SCH (19:52)
[2019-02-09 20:00] VITALS: BP 165/74
[2019-02-09] MEDS ORDERED: MONTELUKAST 10 MG (SINGULAIR) TAB PO SCH (21:00)
[2019-02-10] VITALS: BP 182/84
[2019-02-10 04:00] VITALS: BP 135/87
[2019-02-10] MEDS: CATHETER FLUSH 10 ML SYR IV SCH (06:19)
[2019-02-10 08:00] VITALS: BP 134/63
[2019-02-10] MEDS: metroNIDAZOLE 500 MG (FLAGYL) TAB PO SCH (08:12)
[2019-02-10] MEDS: APIXABAN 2.5 MG (ELIQUIS) TABLET PO SCH (08:12)
[2019-02-10] MEDS ORDERED: meTOprolol SUCCINATE 100 MG (TOPROL XL) TAB PO SCH (09:00)
--- NOTE | 2019-02-10 09:31 | NUR ---
Report called to PATRICIA Soler in ARU at this time.
--- OUTSIDE RECORDS SUMMARY | 2019-03-06 16:56 | XMS REPORT | Continuity of Care Document ---
Author Organization Unknown Address Unknown Phone Unavailable Allergies Active Description Code Type Severity Reaction Onset Reported/Identified Relationship to Patient Clinical Status Yes iodine [id number] Drug Allergy Mild N/A 02/02/2019 Yes Penicillins [id number] Drug Aller gy Mild N/A 02/02/2019 Yes Sulfa (Sulfonamide Antibiotics) [id number] Drug Allergy Unknown N/A 019 Yes sulfamethoxazole [id number] Drug Allergy Unknown N/A 02/02/2019 Yes trimethoprim [id number] Drug Allergy Unknown N/A 02/02/2019 Medications There [...] V76.12 02/26/2014 Ot V76.12 02/26/2014 JENNIFER BRICENO, YORDAN Bearden Ot V76.1 2 03/27/2014 YORDAN RODRIGUEZ [...] CARMICHAEL APRN Ot Y92.[address] [facility] 06/26/2016 ANNELIESE CARMICHAEL APRN Ot Y99.8 OTHER EXTERNAL CAUSE STATUS 06/26/2016 ANNELIESE CARMICHAEL APRN Ot 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 W/O MYELOPATHY OR RADICULOPA 06/26/2016 ANNELIESE CARMICHAEL APRN Ot S09.90XA UNSPECIFIED INJURY OF HEAD, INITIAL ENCO 06/26/2016 ANNELIESE CARMICHAEL BOLT MAN Ot W19.XXXA UNSPECIFIED FALL, INITIAL ENCOUNTER 06/26/2016 ANNELIESE CARMICHAEL BOLT MAN Ot Y92.[address] IN [facility] NON-INSTITUT (PRIVATE 06/26/2016 ANNELIESE CARMICHAEL BOLT MAN Ot Y99.8 OTHER EXTERNAL CAUSE STATUS 07/20/2016 TOMÁS CARMICHAELN Nuno BOLT MAN Ot 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 W/O MYELOPATHY OR RADICULOPA 07/20/2016 TOMÁS CARMICHAELN R BOLT MAN Ot S09.90XA UNSPECIFIED INJURY OF HEAD, INITIAL ENCO 07/20/2016 TOMÁS CARMICHAELN R BOLT MAN Ot W19.XXXA UNSPECIFIED FALL, INITIAL ENCOUNTER 07/20/2016 TOMÁS CARMICHAELN Nuno BOLT MAN Ot Y92.[address] IN [facility] NON-INSTITUT (PRIVATE 07/20/2016 ANNELIESE CARMICHAEL BOLT MAN Ot Y99.8 OTHER EXTERNAL CAUSE STATUS 07/23/2016 TOMÁS CARMICHAELChanel Reina BOLT MAN Ot 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 W/O MYELOPATHY OR RADICULOPA 07/23/2016 TOMÁS CARMICHAELN R BOLT MAN Ot S09.90XA UNSPECIFIED INJURY OF HEAD, INITIAL ENCO 07/23/2016 TOMÁS CARMICHAELN R BOLT MAN Ot W19.XXXA UNSPECIFIED FALL, INITIAL ENCOUNTER 07/23/2016 TOMÁS CARMICHAELChanel Reina BOLT MAN Ot Y92.[address] IN [facility] NON-INSTITUT (PRIVATE 07/23/2016 TOMÁS CARMICHAELChanel Reina BOLT MAN Ot Y99.8 OTHER EXTERNAL CAUSE STATUS 10/21/2016 LIDA BRICENO FAC, [facility] CCDS Ot R06.02 SHORTNESS OF BREATH 10/26/2016 [...] 11/06/2016 SUAD CASE MD Ot Z79.899 OTHER DINING HOST (CURRENT) DRUG THERAPY 11/13/2016 LIDA BRICENO FACC, [...] 11/17/2016 SUAD CASE MD Ot Z79.899 OTHER MCC (CURRENT) DRUG THERAPY 11/17/2016 STEPHANY ALY MD [...] 11/18/2016 SUAD CASE MD Ot Z79.899 OTHER MCC (CURRENT) DRUG THERAPY 11/18/2016 STEPHANY ALY MD [...] ALY MD, Ot J98.11 ATELECTASIS 11/27/2016 STEPHANY ALY MD, Ot K56.7 ILEUS, UNSPECIFIED 11/27/2016 STEPHANY [...] OTH DISORDERS OF PLASMA-PROTEIN METABOLI 12/01/2016 STEPHANY ALY MD, Ot G62.9 POLYNEUROPATHY, [...] Ot I48 .0 PAROXYSMAL ATRIAL FIBRILLATION 12/07/2016 JNAICE MANCILLA MD Ot J44 .9 CHRONIC OBSTRUCTIVE [...] Ot R06.02 SHORTNESS OF BREATH 12/08/2016 LIDA BRICENO FACC, ALI FACP CCDS [...] Ot 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, SUBSE 12/10/2016 AYDNE TELLO MD E Ot Z48.3 AFTERCARE FOLLOWING [...] PERSONAL HISTORY OF MALIGNANT NEOPLASM O 12/12/2016 AYDEN TELLO MD E Ot Z90.4 9 [...] Ot 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, SUBSE 12/13/2016 RAVNI TELLO MDIC E Ot Z48.3 AFTERCARE FOLLOWING [...] AFTERCARE FOLLOWING SURGERY FOR NEOPLASM 12/14/2016 RAVIN TELLO MDIC E Ot Z85.0 38 [...] E Ot K56.7 ILEUS, UNSPECIFIED 12/15/2016 AYDEN TELLO MD E Ot R60.1 GENERALIZED EDEMA 12/15/2016 [...] W/O MYELOPATHY OR RADICULOPA 12/31/2016 ANNELIESE CARMICHAEL BOLT MAN Ot S09.90XA UNSPECIFIED INJURY OF HEAD, INITIAL ENCO 12/31/2016 ANNELIESE CARIMCHAEL BOLT MAN Ot W19.XXXA UNSPECIFIED FALL, INITIAL ENCOUNTER 12/31/2016 ANNELIESE CARMICHAEL BOLT MAN Ot Y92.[address] [facility] PL[address] IN [facility] NON[facility] 12/31/2016 TOMÁS CARMICHAELhCanel Reina BOLT MAN Ot Y99.8 OTHER EXTERNAL CAUSE STATUS 12/31/2016 [...] 01/04/2017 DARNELL LAZCANO MD Ot Z79.899 OTHER DINING HOST (CURRENT) DRUG THERAPY 01/11/2017 YORDAN RODRIGUEZ MD, [...] 01/29/2017 DARNELL LAZCANO MD Ot Z79.899 OTHER DINING HOST (CURRENT) DRUG THERAPY 02/01/2017 YORDAN RODRIGUEZ MD [...] 02/04/2017 DARNELL LAZCANO MD Ot Z79.899 OTHER MCC (CURRENT) DRUG THERAPY 02/04/2017 YORDAN RODRIGUEZ MD [...] E04.2 NONTOXIC MULTINODULAR GOITER 02/17/2017 ANNELIESE CARMICHAEL BOLT MAN Ot 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 W/O MYELOPATHY OR RADICULOPA 02/17/2017 ANNELIESE CARMICHAEL BOLT MAN Ot S09.90XA UNSPECIFIED INJURY OF HEAD, INITIAL ENCO 02/17/2017 ANNELIESE CARMICHAEL BOLT MAN Ot W19.XXXA UNSPECIFIED FALL, INITIAL ENCOUNTER 02/17/2017 ANNELIESE CARMICHAEL BOLT MAN Ot Y92.[address] [facility] PL[address] IN [facility] NON-INSTITUT (PRIVATE 02/17/2017 ANNELIESE CARMICHAEL BOLT MAN Ot Y99.8 OTHER EXTERNAL CAUSE STATUS 02/17/2017 [...] 02/17/2017 DARNELL LAZCANO MD Ot Z79.899 OTHER DINING HOST (CURRENT) DRUG THERAPY 02/17/2017 YORDAN RODRIGUEZ MD [...] 03/04/2017 DARNELL LAZCANO MD Ot Z79.899 OTHER MCC (CURRENT) DRUG THERAPY 03/10/2017 YORDAN RODRIGUEZ MD [...] 04/30/2017 DARNELL LAZCANO MD Ot Z79.899 OTHER DINING HOST (CURRENT) DRUG THERAPY 06/16/2017 Ot V76.12 OTH [...] ENCOUNTER 06/16/2017 ANNELIESE CARMICHAEL APRN Ot Y92.009 [facility] PL[address] IN [facility] NON[facility] (PRIVATE 06/16/2017 ANNELIESE CARMICHAEL APRN [...] 06/16/2017 DARNELL LAZCANO MD Ot Z79.899 OTHER MCC (CURRENT) DRUG THERAPY 06/17/2017 Ot V76.12 OTH [...] E04.2 NONTOXIC MULTINODULAR GOITER 06/17/2017 ANNELIESE CARMICHAEL BOLT MAN Ot 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 W/O MYELOPATHY OR RADICULOPA 06/17/2017 ANNELIESE CARMICHAEL BOLT MAN Ot S09.90XA UNSPECIFIED INJURY OF HEAD, INITIAL ENCO 06/17/2017 ANNELIESE CARMICHAEL BOLT MAN Ot W19.XXXA UNSPECIFIED FALL, INITIAL ENCOUNTER 06/17/2017 ANNELIESE CARMICHAEL BOLT MAN Ot Y92.009 [facility] PL[address] IN [facility] NON-[facility] (PRIVATE 06/17/2017 ANNELIESE CARMICHAEL BOLT MAN Ot Y99.8 OTHER EXTERNAL CAUSE STATUS 06/17/2017 [...] 06/17/2017 DARNELL LAZCANO MD Ot Z79.899 OTHER DINING HOST (CURRENT) DRUG THERAPY 06/17/2017 Ot V76.12 OTH SCREEN MAMMO- MALIGN NEOPLASM OF [place] 06/17/2017 YORDAN RODRIGUEZ MD Ot V76.1 2 OTH SCREEN MAMMO-MALIGN NEOPLASM OF [place] 06/17/2017 YORDAN RODRIGUEZ MD Ot V76.1 2 OTH SCREEN MAMMO-MALIGN NEOPLASM OF [place] 06/17/2017 YORDAN RODRIGUEZ MD Ot R30.0 DYSURIA 06/17/2017 OYRDAN RODRIGUEZ MD Ot R35.0 FREQUENCY OF MICTURITION [...] ENCOUNTER 06/17/2017 ANNELIESE CARMICHAEL APRN Ot Y92.009 [facility] PLACE IN [facility] (PRIVATE 06/17/2017 ANNELIESE CARMICHAEL SHEILA [...] 06/17/2017 DARNELL LAZCANO MD Ot Z79.899 OTHER MCC (CURRENT) DRUG THERAPY 06/18/2017 YORDAN RODRIGUEZ MD [...] 06/30/2017 DARNELL LAZCANO MD Ot Z79.899 OTHER MCC (CURRENT) DRUG THERAPY 07/01/2017 DARNELL LAZCANO MD [...] 07/01/2017 NENO BRICENO PATRICK Ot Z79.899 OTHER DINING HOST (CURRENT) DRUG THERAPY 07/06/2017 Ot V76.12 OTH [...] E04.2 NONTOXIC MULTINODULAR GOITER 07/06/2017 ANNELIESE CARMICHAEL BOLT MAN Ot 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 W/O MYELOPATHY OR RADICULOPA 07/06/2017 ANNELIESE CARMICHAEL BOLT MAN Ot S09.90XA UNSPECIFIED INJURY OF HEAD, INITIAL ENCO 07/06/2017 ANNELIESE CARMICHAEL APRN Ot W19.XXXA UNSPECIFIED FALL, INITIAL ENCOUNTER 07/06/2017 ANNELIESE CARMICHAEL APRN Ot Y92.009 [facility] PL[address] IN [facility] NON-[facility] (PRIVATE 07/06/2017 ANNELIESE CARMICHAEL BOLT MAN Ot Y99.8 OTHER EXTERNAL CAUSE STATUS 07/06/2017 [...] 07/06/2017 DARNELL LAZCANO MD Ot Z79.899 OTHER DINING HOST (CURRENT) DRUG THERAPY 07/07/2017 YORDAN RODRIGUEZ MD, Ot K43.9 VENTRAL HERNIA WITHOUT OBSTRUCTION OR GA 07/07/2017 YORDAN RODRIGUEZ MD, Ot 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, PART UNSP, W/O PERF 07/07/2017 YORDAN RODRIGUEZ MD Ot Z98.8 90 OTHER SPECIFIED POSTPROCEDURAL STATES 07/07/[address] CREW MEMBER Ot E66.09 OTHER OBESITY DUE TO EXCESS CALORIES 07/07/[address] CREW MEMBER Ot I 10 ESSENTIAL (PRIMARY) HYPERTENSION 07/07/[address] CREW MEMBER Ot I48.0 PAROXYSMAL ATRIAL FIBRILLATION 07/07/[address] CREW MEMBER Ot R06.02 SHORTNESS OF BREATH 07/07/[address] CREW MEMBER Ot Z79.01 DINING HOST (CURRENT) USE OF ANTICOAGULANT 07/12/2017 STEPHANY ALY [...] MD Ot I25.10 ATHSCL HEART DISEASE OF [place] CORONARY 07/17/2017 STEPHANY ALY MD Ot I48.91 UNSPECIFIED ATRIAL FIBRILLATION 07/17/2017 STEPHANY ALY MD Ot J45.90 9 UNSPECIFIED ASTHMA, UNCOMPLICATED 07/17/2017 STEPHANY ALY MD Ot K43.0 INCISIONAL HERNIA WITH OBSTRUCTION, WITH 07/17/2017 STEPHANY ALY MD Ot R11.0 NAUSEA 07/17/2017 STEPHANY ALY MD Ot Z79.01 MCC (CURRENT) USE OF ANTICOAGULANT 07/17/2017 STEPHANY ALY MD Ot Z79.89 9 OTHER DINING HOST (CURRENT) DRUG THERAPY 07/17/2017 STEPHANY ALY MD Ot C18.2 MALIGNANT NEOPLASM OF ASCENDING COLON 07/17/2017 STEPHANY ALY MD Ot I10 ESSENTIAL (PRIMARY) HYPERTENSION 07/17/2017 STEPHANY ALY MD Ot I25.10 ATHSCL HEART DISEASE OF [place] CORONARY 07/17/2017 STEPHANY ALY MD Ot I48.91 UNSPECIFIED ATRIAL FIBRILLATION 07/17/2017 STEPHANY ALY MD Ot J45.90 9 UNSPECIFIED ASTHMA, UNCOMPLICATED 07/17/2017 STEPHANY ALY MD Ot K43.0 INCISIONAL HERNIA WITH OBSTRUCTION, WITH 07/17/2017 STEPHANY ALY MD Ot R11.0 NAUSEA 07/17/2017 STEPHANY ALY MD Ot Z79.01 DINING HOST (CURRENT) USE OF ANTICOAGULANT 07/17/2017 STEPHANY ALY MD Ot Z79.89 9 OTHER DINING HOST (CURRENT) DRUG THERAPY 07/27/[address] CREW MEMBER Ot E66.09 OTHER OBESITY DUE TO EXCESS CALORIES 07/27/[address] CREW MEMBER Ot I 10 ESSENTIAL (PRIMARY) HYPERTENSION 07/27/[address] CREW MEMBER Ot I48.0 PAROXYSMAL ATRIAL FIBRILLATION 07/27/[address] CREW MEMBER Ot R06.02 SHORTNESS OF BREATH 07/27/[address] CREW MEMBER Ot Z79.01 DINING HOST (CURRENT) USE OF ANTICOAGULANT 08/04/[address] CREW MEMBER Ot E66.09 OTHER OBESITY DUE TO EXCESS CALORIES 08/04/[address] CREW MEMBER Ot I 10 ESSENTIAL (PRIMARY) HYPERTENSION 08/04/[address] CREW MEMBER Ot I48.0 PAROXYSMAL ATRIAL FIBRILLATION 08/04/[address] CREW MEMBER Ot R06.02 SHORTNESS OF BREATH 08/04/[address] CREW MEMBER Ot Z79.01 DINING HOST (CURRENT) USE OF ANTICOAGULANT 09/28/2017 DARNELL LAZCANO [...] 09/28/2017 DARNELL LAZCANO MD Ot Z79.899 OTHER DINING HOST (CURRENT) DRUG THERAPY 09/29/2017 YORDAN RODRIGUEZ MD [...] E04.2 NONTOXIC MULTINODULAR GOITER 09/29/2017 ANNELIESE CARMICHAEL BOLT MAN Ot 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 W/O MYELOPATHY OR RADICULOPA 09/29/2017 ANNELIESE CARMICHAEL BOLT MAN Ot S09.90XA UNSPECIFIED INJURY OF HEAD, INITIAL ENCO 09/29/2017 ANNELIESE CARMICHAEL BOLT MAN Ot W19.XXXA UNSPECIFIED FALL, INITIAL ENCOUNTER 09/29/2017 ANNELIESE CARMICHAEL BOLT MAN Ot Y92.[address] IN [facility] NON[facility] (PRIVATE 09/29/2017 ANNELIESE CARMICHAEL BOLT MAN Ot Y99.8 OTHER EXTERNAL CAUSE STATUS 09/29/2017 [...] SPECIFIED POSTPROCEDURAL STATES 09/29/[address] CREW MEMBER Ot E66.09 OTHER OBESITY DUE TO EXCESS CALORIES 09/29/[address] CREW MEMBER Ot I 10 ESSENTIAL (PRIMARY) HYPERTENSION 09/29/[address] CREW MEMBER Ot I48.0 PAROXYSMAL ATRIAL FIBRILLATION 09/29/[address] CREW MEMBER Ot R06.02 SHORTNESS OF BREATH 09/29/[address] CREW MEMBER Ot Z79.01 MCC (CURRENT) USE OF ANTICOAGULANT 09/29/2017 DARNELL LAZCANO [...] 09/29/2017 DARNELL LAZCANO MD Ot Z79.899 OTHER MCC (CURRENT) DRUG THERAPY 09/30/2017 DARNELL LAZCANO MD [...] 09/30/2017 DIANA LAZCANO MDNER Ot Z79.899 OTHER DINING HOST (CURRENT) DRUG THERAPY 10/05/2017 DARNELL LAZCANO MD Ot C18.2 MALIGNANT NEOPLASM OF ASCENDING COLON 10/05/2017 DARNELL LAZCANO MD Ot E66.9 OBESITY, UNSPECIFIED 10/05/2017 DARNELL LAZCANO MD Ot I10 ESSENTIAL (PRIMARY) HYPERTENSION 10/05/2017 DIANA LAZCANO MDNER Ot I48.0 PAROXYSMAL ATRIAL FIBRILLATION 10/05/2017 DIANA LAZCANO MDNER Ot J45.909 UNSPECIFIED ASTHMA, UNCOMPLICATED 10/05/2017 DIANA LAZCANO MDNER Ot R06.02 SHORTNESS OF BREATH 10/05/2017 DIANA LAZCANO MDNER Ot R53.83 OTHER FATIGUE 10/05/2017 DARNELL LAZCANO MD Ot Z68.32 BODY MASS INDEX (BMI) 32.0-32.9, ADULT 10/05/2017 DIANA LAZCANO MDNER Ot Z79.899 OTHER DINING HOST (CURRENT) DRUG THERAPY 10/26/2017 DARNELL LAZCANO MD [...] 10/26/2017 DIANA LAZCANO MDNER Ot Z79.899 OTHER MCC (CURRENT) DRUG THERAPY 11/05/2017 DARNELL LAZCANO MD Ot C18.2 MALIGNANT NEOPLASM OF ASCENDING COLON 11/05/2017 DIANA ALZCANO MDNER Ot E66.9 OBESITY, UNSPECIFIED 11/05/2017 DIANA [...] 11/05/2017 DARNELL LAZCANO MD Ot Z79.899 OTHER DINING HOST (CURRENT) DRUG THERAPY 01/20/2018 STEPHANY ALY MD Ot Z01.81 8 ENCOUNTER FOR OTHER PREPROCEDURAL EXAMIN 01/25/2018 STEPHANY ALY MD, Ot Z01.81 8 ENCOUNTER FOR OTHER PREPROCEDURAL EXAMIN 01/25/2018 STEPHANY ALY MD, Ot Z01.81 8 ENCOUNTER FOR OTHER PREPROCEDURAL EXAMIN 01/26/2018 STEPHANY ALY MD, Ot I10 ESSENTIAL (PRIMARY) HYPERTENSION 01/26/2018 STEPHANY ALY MD Ot I25.10 ATHSCL HEART DISEASE OF [place] CORONARY 01/26/2018 STEPHANY ALY MD, Ot J45.90 [...] O 01/26/2018 STEPHANY ALY MD, Ot Z79.01 MCC (CURRENT) USE OF ANTICOAGULANT 01/26/2018 STEPHANY ALY MD, Ot Z79.89 9 OTHER MCC (CURRENT) DRUG THERAPY 01/26/2018 STEPHANY ALY MD, Ot Z85.03 8 PERSONAL HISTORY OF MALIGNANT NEOPLASM O 01/26/2018 STEPHANY ALY MD Ot Z88.0 ALLERGY STATUS TO PENICILLIN 01/26/2018 STEPHANY ALY MD, Ot Z88.2 ALLERGY STATUS TO SULFONAMIDES STATUS 02/01/2018 STEPHANY ALY MD Ot I10 ESSENTIAL (PRIMARY) HYPERTENSION 02/01/2018 STEPHANY ALY MD, Ot I25.10 ATHSCL HEART DISEASE OF [place] CORONARY 02/01/2018 STEPHANY ALY MD Ot J45.90 [...] O 02/01/2018 STEPHANY ALY MD, Ot Z79.01 DINING HOST (CURRENT) USE OF ANTICOAGULANT 02/01/2018 STEPHANY ALY MD Ot Z79.89 9 OTHER DINING HOST (CURRENT) DRUG THERAPY 02/01/2018 STEPHANY ALY MD Ot Z85.03 8 PERSONAL HISTORY OF MALIGNANT NEOPLASM O 02/01/2018 STEPHANY ALY MD Ot Z88.0 ALLERGY STATUS TO PENICILLIN 02/01/2018 STEPHANY ALY MD Ot Z88.2 ALLERGY STATUS TO SULFONAMIDES STATUS 02/03/2018 STEPHANY ALY MD Ot I10 ESSENTIAL (PRIMARY) HYPERTENSION 02/03/2018 STEPHANY ALY MD, Ot I25.10 ATHSCL HEART DISEASE OF [place] CORONARY 02/03/2018 STEPHANY ALY MD, Ot J45.90 [...] O 02/03/2018 STEPHANY ALY MD Ot Z79.01 MCC (CURRENT) USE OF ANTICOAGULANT 02/03/2018 STEPHANY ALY MD Ot Z79.89 9 OTHER MCC (CURRENT) DRUG THERAPY 02/03/2018 STEPHANY ALY MD [...] 03/04/2018 DARNELL LAZCANO MD Ot Z79.899 OTHER DINING HOST (CURRENT) DRUG THERAPY 03/11/2018 DARNELL LAZCANO MD [...] 03/11/2018 DARNELL LAZCANO MD Ot Z79.899 OTHER DINING HOST (CURRENT) DRUG THERAPY 03/16/2018 ANNELIESE CARMICHAEL BOLT MAN Ot Z12.31 ENCNTR SCREEN MAMMOGRAM FOR MALIGNANT NE 04/12/2018 DARNELL LAZCANO MD Ot C18.2 MALIGNANT NEOPLASM OF ASCENDING COLON 04/12/2018 DARNLEL LAZCANO MD Ot E66.9 OBESITY, UNSPECIFIED 04/12/2018 [...] 04/12/2018 DARNELL LAZCANO MD Ot Z79.899 OTHER DINING HOST (CURRENT) DRUG THERAPY 04/13/2018 DARNELL LAZCANO MD [...] 04/13/2018 DARNELL LAZCANO MD Ot Z79.899 OTHER MCC (CURRENT) DRUG THERAPY 04/18/2018 DARNELL LAZCANO MD [...] 04/18/2018 DARNELL LAZCANO MD Ot Z79.899 OTHER MCC (CURRENT) DRUG THERAPY 05/12/2018 DARNELL LAZCANO MD [...] 05/12/2018 DARNELL LAZCANO MD Ot Z79.899 OTHER MCC (CURRENT) DRUG THERAPY 06/07/2018 FELTON LESLIE MD, [...] LESLIE MD Ot Y92.[address] IN [facility] NON-INSTITUT (PRIVATE) 06/07/2018 FELTON LESLIE MD, Ot Z79.01 MCC (CURRENT) USE OF ANTICOAGULANT 06/07/2018 FELTON LESLIE [...] Ot I48.91 UNSPECIFIED ATRIAL FIBRILLATION 06/10/2018 FELTON LESLIE MD Ot J45.909 UNSPECIFIED ASTHMA, UNCOMPLICATED 06/10/2018 FELTON LESLIE MD Ot S09.90XA UNSPECIFIED INJURY OF HEAD, INITIAL ENCO 06/10/2018 FELTON LESLIE MD Ot W01.198A FALL SAME LEV FROM SLIP/TRIP W STRIKE AG 06/10/2018 FELTON LESLIE MD Ot Y92.[address] IN [facility] NON-[facility] (PRIVATE) 06/10/2018 FELTON LESLIE MD Ot Z79.01 DINING HOST (CURRENT) USE OF ANTICOAGULANT 06/10/2018 FELTON LESLIE [...] Z91.041 RADIOGRAPHIC DYE ALLERGY STATUS 06/10/2018 FELTON LESLIE MD Ot Z98.890 OTHER SPECIFIED [...] MD Ot R53.83 OTHER FATIGUE 06/29/2018 DARNELL LAZCANO MD Ot Z68.32 BODY MASS INDEX (BMI) 32.0-32.9, ADULT 06/29/2018 DARNELL LAZCANO MD Ot Z79.899 OTHER MCC (CURRENT) DRUG THERAPY 07/07/2018 DARNELL LAZCANO MD [...] 07/07/2018 DARNELL LAZCANO MD Ot Z79.899 OTHER DINING HOST (CURRENT) DRUG THERAPY 08/02/2018 LIDA BRICENO FACC, ALI FACP CCDS Ot I10 ESSENTIAL (PRIMARY) HYPERTENSION 08/02/2018 LIDA BRICENO FACC, ALI FACP CCDS Ot I48.0 PAROXYSMAL ATRIAL FIBRILLATION 08/02/2018 LIDA BRICENO FACC, ALI FACP CCDS Ot J45.909 UNSPECIFIED ASTHMA, UNCOMPLICATED 08/02/2018 LIDA BRICENO FACC, ALI FACP CCDS Ot R55 SYNCOPE AND COLLAPSE 08/02/2018 LIDA BRICENO FACC, ALI FACP CCDS Ot Z79.01 DINING HOST (CURRENT) USE OF ANTICOAGULANT 08/02/2018 LIDA BRICENO FACC, ALI FACP CCDS Ot Z79.899 OTHER MCC (CURRENT) DRUG THERAPY 08/04/2018 LIDA BRICENO FACC, ALI FACP CCDS Ot I10 ESSENTIAL (PRIMARY) HYPERTENSION 08/04/2018 LIDA BRICENO FACC, ALI FACP CCDS Ot I48.0 PAROXYSMAL ATRIAL FIBRILLATION 08/04/2018 LIDA BRICENO FACC, ALI FACP CCDS Ot J45.909 UNSPECIFIED ASTHMA, UNCOMPLICATED 08/04/2018 LIDA BRICENO FACC, ALI FACP CCDS Ot R55 SYNCOPE AND COLLAPSE 08/04/2018 LIDA BRICENO FACC, ALI FACP CCDS Ot Z79.01 DINING HOST (CURRENT) USE OF ANTICOAGULANT 08/04/2018 LIDA BRICENO FACC, ALI FACP CCDS Ot Z79.899 OTHER MCC (CURRENT) DRUG THERAPY 08/09/2018 DARNELL LAZCANO MD Ot C18.2 MALIGNANT NEOPLASM OF ASCENDING COLON 08/09/2018 DARNELL LAZCANO MD Ot E66.9 OBESITY, UNSPECIFIED 08/09/2018 DARNELL LAZCANO MD Ot I10 ESSENTIAL (PRIMARY) HYPERTENSION 08/09/2018 DARNELL LAZCANO MD Ot I48.0 PAROXYSMAL ATRIAL FIBRILLATION 08/09/2018 DARNELL LAZCANO MD Ot J45.909 UNSPECIFIED ASTHMA, UNCOMPLICATED 08/09/2018 DARNELL LAZCANO MD Ot R06.02 SHORTNESS OF BREATH 08/09/2018 DARNELL LACZANO MD Ot R53.83 OTHER FATIGUE 08/09/2018 DARNELL LAZCANO MD Ot Z68.32 BODY MASS INDEX (BMI) 32.0-32.9, ADULT 08/09/2018 DARNELL LAZCANO MD Ot Z79.899 OTHER MCC (CURRENT) DRUG THERAPY 08/12/2018 DARNELL LAZCANO MD [...] 08/12/2018 DIANA LAZCANO MDNER Ot Z79.899 OTHER DINING HOST (CURRENT) DRUG THERAPY 10/27/2018 DARNELL LAZCANO MD [...] 10/27/2018 DIANA LAZCANO MDNER Ot Z79.899 OTHER DINING HOST (CURRENT) DRUG THERAPY 12/13/2018 DARNELL LAZCANO MD [...] 12/13/2018 DARNELL LAZCANO MD Ot Z79.899 OTHER DINING HOST (CURRENT) DRUG THERAPY 12/14/2018 DARNELL LAZCANO MD [...] 12/14/2018 DARNELL LAZCANO MD Ot Z79.899 OTHER MCC (CURRENT) DRUG THERAPY 01/25/2019 DARNELL LAZCANO MD [...] 01/25/2019 DARNELL LAZCANO MD Ot Z79.899 OTHER MCC (CURRENT) DRUG THERAPY 01/25/2019 STEPHANY ALY MD [...] AND ABSC 02/06/2019 STEPHANY ALY MD, Ot K92.89 OTHER SPECIFIED DISEASES OF THE DIGESTIV 02/06/2019 STEPHANY ALY MD, Ot M19.91 PRIMARY OSTEOARTHRITIS, UNSPECIFIED SITE 02/06/2019 STEPHANY ALY MD, Ot N20.0 CALCULUS OF KIDNEY 02/06/2019 STEPHANY [...] 02/10/2019 PONCHO CHRISTOPHER MD, Ot Z79. 01 MCC (CURRENT) USE OF ANTICOAGULANT 02/10/2019 PONCHO CHRISTOPHER MD, Ot Z79.891 DINING HOST (CURRENT) USE OF OPIATE ANALGE 02/10/2019 PONCHO CHRISTOPHER MD, Ot Z79.899 OTHER MCC (CURRENT) DRUG THERAPY 02/10/2019 PONCHO CHRISTOPHER MD, [...] ALLERGY STATUS TO OTH DRUG/MEDS/BIOL SUB 02/10/2019 PONCHO CHRISTOPHER MD Ot I10 ESSENTIAL (PRIMARY) HYPERTENSION 02/10/2019 PONCHO CHRISTOPHER MD Ot I48. 91 UNSPECIFIED ATRIAL FIBRILLATION 02/10/2019 PONCHO CHRISTOPHER MD Ot J45.909 UNSPECIFIED ASTHMA, UNCOMPLICATED 02/10/2019 PONCHO CHRISTOPHER MD Ot K59. 09 OTHER CONSTIPATION 02/10/2019 PONCHO CHRISTOPHER MD, Ot M19. 90 UNSPECIFIED OSTEOARTHRITIS, UNSPECIFIED 02/10/2019 PONCHO CHRISTOPHER MD Ot R53. 1 WEAKNESS 02/10/2019 PONCHO CHRISTOPHER MD, Ot Z79. 01 DINING HOST (CURRENT) USE OF ANTICOAGULANT 02/10/2019 PONCHO CHRISTOPHER MD Ot Z79.891 DINING HOST (CURRENT) USE OF OPIATE ANALGE 02/10/2019 PONCHO CHRISTOPHER MD Ot Z79.899 OTHER DINING [facility]OST (CURRENT) DRUG THERAPY 02/10/2019 PONCHO CHRISTOPHER MD [...] MD Ot Z88. 8 ALLERGY STATUS TO OTH DRUG/MEDS/BIOL SUB 02/16/2019 ROMAINE LR DOI Ot D64.9 ANEMIA, UNSPECIFIED 02/16/2019 ROMAINE LR DOI Ot H91.93 UNSPECIFIED HEARING LOSS, BILATERAL 02/16/2019 ROMAINE LR DOI Ot I10 ESSENTIAL (PRIMARY) HYPERTENSION 02/16/2019 ROMAINE LR DOI Ot I48.0 PAROXYSMAL ATRIAL FIBRILLATION 02/16/2019 ROMAINE LR DOI Ot J44.9 CHRONIC OBSTRUCTIVE PULMONARY DISEASE, U 02/16/2019 ADELINE LOPEZ NICHELLE Ot K57.90 DVRTCLOS OF INTEST, PART UNSP, W/O PERF 02/16/2019 NICHELLE LR DO Ot M19.91 PRIMARY OSTEOARTHRITIS, UNSPECIFIED SITE 02/16/2019 LR DO, NICHELLE Ot R53.1 WEAKNESS 02/16/2019 LR DO, NICHELLE [...] OF MALIGNANT NEOPLASM O 02/23/2019 YORDAN RODRIGUEZ MD Ot Z12.3 1 ENCNTR SCREEN MAMMOGRAM FOR MALIGNANT NE 02/24/2019 YORDAN RODRIGUEZ MD Ot Z12.3 1 ENCNTR SCREEN MAMMOGRAM FOR MALIGNANT NE 02/27/2019 YORDAN RODRIGUEZ MD Ot Z12.3 1 ENCNTR SCREEN MAMMOGRAM FOR MALIGNANT NE 03/01/2019 YORDAN RODRIGUEZ MD Ot Z12.3 1 ENCNTR SCREEN MAMMOGRAM FOR MALIGNANT NE 03/01/2019 YORDAN RODRIGUEZ MD Ot Z98.8 90 OTHER SPECIFIED POSTPROCEDURAL STATES 03/03/2019 DARNELL LAZCANO MD Ot C18.2 MALIGNANT NEOPLASM OF ASCENDING COLON 03/03/2019 DARNELL LAZCANO MD Ot E66.9 OBESITY, UNSPECIFIED 03/03/2019 DARNELL LAZCANO MD Ot I10 ESSENTIAL (PRIMARY) HYPERTENSION 03/03/2019 DARNELL LAZCANO MD Ot I48.0 PAROXYSMAL ATRIAL FIBRILLATION 03/03/2019 DARNELL LAZCANO MD Ot J45.909 UNSPECIFIED ASTHMA, UNCOMPLICATED 03/03/2019 DARNELL LAZCANO MD Ot R06.02 SHORTNESS OF BREATH 03/03/2019 DARNELL LAZCANO MD Ot R53.83 OTHER FATIGUE 03/03/2019 DARNELL LAZCANO MD Ot Z68.32 BODY MASS INDEX (BMI) 32.0-32.9, ADULT 03/03/2019 DARNELL LAZCANO MD Ot Z79.899 OTHER [facility] (CURRENT) DRUG THERAPY Procedures Code Description Performed By Per alvin On [id number] RE SECTION OF RIGHT LARGE INTESTINE, PERC [...] LEUKO REDUCED AS1 T RANSFUSED 10/25/16 1519 NRG Blood type T Indirect antibody screen pa aroldo - 10/23/16 19:20 ABO+Rh group AP NRG Transfusion band number [id number] NRG Blood group antibody screen NEGATIVE NR G [...] NRG Blood ovalocytes detection by light microscopy [facility] NRG Blood poikilocytosis detection by light microscopy SLIGHT NRG Blood hypochromia detection by light microscopy MA RKED NRG Blood microcytes detection by light microscopy [facility] NRG Blood reticulocytes count (number/volume) 71 10*9/ L 24-90 Blood reticulocytes/100 erythrocytes 2.34 % 0.50-2.40 Blood target cells detection by light microscopy S LIGHT NRG Blood dacrocytes detection by light microscopy [facility] GHT NRG Serum or plasma folate measurement (mass /volume) [...] 109 mmol/L 98-107 Carbon dioxide 16 mmol/L 21-32 [...] culture - 11/22/16 06:50 Bacterial urine culture [id number] NRG COLONY COUNT >100,000/ML NRG FTX;REPORTABLE SENSITIVITY REPORTED 11/24/16 7:50 [facility] Bacterial susceptibility panel - 7 06:50 Gentamicin [...] susceptibility test by minimum inhibitory concentration - [facility] Whole blood basic metabolic panel - 11/06 [...] culture - 11/23/16 06:30 Bacterial urine culture [id number] NRG COLONY COUNT >100,000/ML NRG FTX;REPORTABLE SENSITIVTY [...] :30 NRG QUANTITY OF GROWTH Scant Growth NRG Bacterial body fluid culture [id number] [facility] Bacterial susceptibility panel - 7 06:30 Gentamicin [...] susceptibility test by minimum inhibitory concentration - [facility] Bacterial susceptibility panel - 7 06:30 Gentamicin [...] susceptibility test by minimum inhibitory concentration - [facility] Bacterial susceptibility panel - 7 06:30 Gentamicin [...] susceptibility test by minimum inhibitory concentration - NR Bacterial blood culture - 11/23/16 06:40 Bacterial [...] culture - 11/29/16 11:20 Bacterial urine culture [id number] NRG COLONY COUNT 10,000/ML - 100,000/ML NRG [...] LEUKO REDUCED AS1 T RANSFUSED 12/01/16 1024 NRG Blood type T Indirect antibody screen pa aroldo - 12/01/16 05:30 ABO+Rh group AP NRG Transfusion band number [id number] NRG Blood group antibody screen NEGATIVE NR G [...] 97 mmol/L 98-107 Carbon dioxide 29 mmol/L -32 Serum or plasma anion gap [...] Whole blood basic metabolic panel - 10/0 1/17 06:43 Serum or plasma sodium measurement (moles/volume) [...] 0.0-0.1 Whole blood basic metabolic panel - 07/22 04:00 Serum or plasma sodium measurement [...] complete blood count (he mogram) panel - 12/14/16 09:09 Blood leukocytes automated [...] [foz_us] 7.4-10.4 Automated blood complete blood count (he mogram) panel - 12/15/16 05:45 Blood leukocytes [...] ragweed IgE antibody assay - 09/14 09:07 [id number] 0.8 % 0.0-5.0 Complete blood count (CBC) [...] Status Pt. Type Provider Facility Loc./Unit Complaint [id number] 02/27/2019 09:08:00 23:59:59 CLS Outpatient YORDAN RODRIGUEZ MD Via [facility] RAD SCREENING [id number] 02/10/2019 10:20:00 16:30:00 DIS Inpatient NICHELLE LR DO, V [facility] IRF DEBILITY [id number] 02/08/2019 18:11:00 09:58:00 DIS Inpatient PONCHO CHRISTOPHER MD [facility] 4TH GENERALIZED WEAKNESS [id number] 02/02/2019 15:00:00 17:30:00 DIS Inpatient STEPHANY ALY MD, V [facility] 4TH COLON PERFORATION,UTI [id number] 02/01/2019 08:18:00 11:35:00 DIS Outpatient STEPHANY ALY MD [facility] ENDO 1 YR F/U, HX COLON CA [id number] 01/25/2019 05:34:00 11:20:00 DIS Outpatient STEPHANY ALY MD [facility] PREOP COLONOSCOPY [id number] 01/11/2019 08:13:00 23:59:59 CLS Outpatient DARNELL LAZCANO MD, V [facility] ONC [id number] 09/14/2018 08:43:00 00:01:00 DIS Outpatient DARNELL LAZCANO MD [facility] ONC [id number] 05/11/2018 08:52:00 06/04/2 019 00:01:00 DIS Outpatient DARNELL LAZCANO MD [facility] ONC [id number] 08/02/2018 08:36:00 019 10:24:00 DIS Outpatient LIDA BRICENO FACC, EMILY ROQUE CC DS [facility] CATH SYNCOPE AND COLLAPSE [id number] 06/07/2018 10:12:00 14:15:00 DIS Emergency FELTON LESLIE MD [facility] ER FALL/HEAD INJUR Y [id number] 01/12/2018 09:16:00 00:01:00 DIS Outpatient DARNELL LAZCANO MD [facility] ONC [id number] 02/21/2018 09:22:00 23:59:59 CLS Outpatient ANNELIESE CARMICHAEL APRN [facility] RAD SCREENING [id number] 01/26/2018 08:58:00 018 11:28:00 DIS Outpatient STEPHANY ALY MD [facility] ENDO HX COLON CA/SYMPTOMATIC LESION LEFT ABDOMEN [id number] 01/25/2018 09:15:00 018 09:53:00 DIS Outpatient STEPHANY ALY MD [facility] PREOP COLONOSCOPY [id number] 09/29/2017 10:24:00 018 00:01:00 DIS Outpatient DARNELL LAZCANO MD [facility] ONC C18.2 [id number] 07/16/2017 12:35:00 Nichole 16:30:00 DIS Inpatient STEPHANY ALY MD, V ia [facility] 4TH INCISIONAL/ABDOMINAL/VE NTRAL HERNIA [id number] 07/12/2017 10:13:00 Nichole 14:55:00 DIS Outpatient STEPHANY ALY MD [facility] PREOP INCISIONAL/ABDOMINAL/VE NTRAL HERNIA [id number] 07/06/2017 07:54:00 23:59:59 CLS Outpatient ARIS TRINIDAD [facility] CARD R06.02 SOB [id number] 06/30/2017 08:43:00 00:01:00 DIS Outpatient DARNELL LAZCANO MD, V [facility] ONC [id number] 06/17/2017 07:10:00 23:59:59 CLS Outpatient YORDAN RODRIGUEZ MD [facility] RAD ABD PAIN [id number] 12/31/2016 14:40:00 017 09:40:00 DIS Outpatient DARNELL LAZCANO MD, V [facility] ONC [id number] 02/17/2017 08:42:00 23:59:59 CLS Outpatient YORDAN RODRIGUEZ MD [facility] RAD SCREENING MAMMO [id number] 01/11/2017 11:09:00 23:59:59 CLS Outpatient YORDAN RODRIGUEZ MD [facility] RAD R05 [id number] 01/08/2017 10:30:00 23:59:59 CLS Outpatient YORDAN RODRIGUEZ MD [facility] HH AMENIA [id number] 12/24/2016 12:20:00 23:59:59 CLS Outpatient YORDAN RODRIGUEZ MD [facility] ANEMIA/CHF [id number] 12/07/2016 10:45:00 12:45:00 DIS Inpatient ELISHA BRICENO, AYDEN Kumar [facility] IRF COPD MYOPATHY [id number] 12/08/2016 07:30:00 11:29:00 DIS Inpatient NICHELLE LR DO, V [facility] ICU SOA [id number] 12/01/2016 12:12:00 11:00:00 DIS Inpatient LAURENT BRICENO, JNAICE Castellanos [facility] 4TH SWB-POST OP RT HEMICOLE CTOMY/SEVERE DECONDITIONING [id number] 11/19/2016 10:06:00 12:11:00 DIS Inpatient STEPHANY ALY MD, V [facility] 4TH COLON CANCER [id number] 11/17/2016 15:14:00 017 15:49:00 DIS Outpatient STEPHANY ALY MD [facility] PREOP LAPAROSCOPIC RIGHT SANAZ CTOMY [id number] 11/06/2016 08:35:00 017 11:50:00 DIS Outpatient SUAD CASE MD [facility] ENDO SEVERE ANEMIA [id number] 11/04/2016 14:06:00 017 23:59:59 CLS Outpatient SUAD CASE MD [facility] PREOP COLONOSCOPY POSSIBLE EG D [id number] 11/04/2016 13:00:00 017 23:59:59 CLS Preadmit LIDA BRICENO FACC, ALI FACP CCDS [facility] CARD SOB [id number] 10/30/2016 15:30:00 017 23:59:59 CLS Preadmit LIDA BRICENO FACMartha, ALI FACP CCDS [facility] RT SOB [id number] 10/27/2016 12:15:00 017 23:59:59 CLS Preadmit LIDA BRICENO FACMartha, ALI FACP CCDS [facility] CARD SOB [id number] 10/23/2016 22:00:00 017 20:05:00 DIS Inpatient SHERYL RAMOS MD [facility] 4TH SEVERE ANEMA,LL Q PAIN,DYSPNEA,FATIGUE [id number] 10/23/2016 10:14:00 017 23:59:59 CLS Outpatient LIDA BRICENO FACMartha, ALI FACP CC DS [facility] CARD SOB,FATIGUE,OBESITY,PAF [id number] 06/25/2016 12:05:00 017 23:59:59 CLS Outpatient ANNELIESE CARMICHAEL APRN [facility] RAD FALL AT HOME HI T HEAD [id number] 04/10/2016 10:08:00 017 23:59:59 CLS Outpatient YORDAN RODRIGUEZ MD [facility] RAD ABNORMAL THYROID TESTS [id number] 03/03/2016 08:14:00 016 23:59:59 CLS Outpatient YORDAN RODRIGUEZ MD [facility] RAD SCREENING [id number] 02/27/2015 10:59:00 23:59:59 CLS Outpatient YORDAN RODRIGUEZ MD [facility] RAD SCREENING [id number] 12/20/2014 16:34:00 23:59:59 CLS Outpatient YORDAN RODRIGUEZ MD [facility] RAD COUGH [id number] 12/17/2014 16:53:00 23:59:59 CLS Outpatient YORDAN RODRIGUEZ MD [facility] LABNPT BURNING, FREQUENCY [id number] 11/22/2014 07:22:00 08:17:00 DIS Emergency FELTON LESLIE MD [facility] ER FALL/RIGHT WRIS T INJURY [id number] 02/26/2014 09:44:00 014 23:59:59 CLS Outpatient YORDAN RODRIGUEZ MD [facility] RAD ROUTINE [id number] 02/23/2013 08:46:00 013 23:59:59 CLS Outpatient YORDAN RODRIGUEZ MD [facility] RAD SCREENING [id number] 12/05/2014 11:53:[address] Inpatient YORDAN RODRIGUEZ MD [facility] CSD ANAPHALAXIS [id number] 02/26/2014 09:50:00 Document Registration [id number] 02/26/2014 09:50:00 Document Registration [id number] 02/26/2014 09:50:00 Document Registration [id number] 02/23/2012 09:52:00 Document Registration [id number] 02/16/2011 09:30:00 Document Registration [id number] 02/13/2010 15:28:00 Document Registration [id number] 08/21/2009 14:49:00 Document Registration [id number] 06/28/2009 14:48:00 Document Registration [id number] 06/13/2009 15:54:00 Document Registration [id number] 04/19/2009 12:23:00 Document Registration [id number] 03/13/2009 10:14:00 Document Registration [id number] 02/01/2009 06:58:00 Document Registration [id number] 11/22/2008 15:47:00 Document Registration
== END 2019-02-10 09:30 ==
LOC: EDUNIT# 16:20 → ER 16:22 → 4TH 18:11 → UNDOADMOB 18:11 → 4TH 19:00 → UNDODISOB 02-10 09:58
PROVIDERS: ADMIT Family Medicine; ATTEND Family Medicine
DX: R53.1 Weakness (principal); I48.91 Unspecified atrial fibrillation; J45.909 Unspecified asthma, uncomplicated; I10 Essential (primary) hypertension; M19.90 Unspecified osteoarthritis, unspecified site; K59.09 Other constipation; Z79.01 Long term (current) use of anticoagulants; Z88.1 Allergy status to other antibiotic agents; Z88.0 Allergy status to penicillin; Z88.2 Allergy status to sulfonamides; Z88.8 Allergy status to other drugs, medicaments and biological substances; Z79.891 Long term (current) use of opiate analgesic; Z79.899 Other long term (current) drug therapy; Z82.49 Family history of ischemic heart disease and other diseases of the circulatory system
CPT/HCPCS: 36415; 80053; 81000; 85025; G0378

== ENCOUNTER 2019-02-09 15:40 | Inpatient (IN) | payer MEDICARE ==
[~2019-02-09] VITALS: Ht 157 cm; Wt 81.7 kg
[~2019-02-09 15:40] MED LIST changes: +METO-387 PO; +METO-395 PO; -MTP100TCR PO; -MTP25TSR PO
[2019-02-10] MEDS ORDERED: ALPRAZolam 0.25 MG (XANAX) TAB PO PRN (10:30)
[2019-02-10] MEDS ORDERED: ACETAMINOPHEN 500 MG TAB (TYLENOL) PO PRN (10:30)
[2019-02-10] MEDS ORDERED: LOPERAMIDE 2 MG (IMODIUM) TABLET PO PRN (10:30)
[2019-02-10] MEDS ORDERED: FLEET ENEMA ADULT 1 EA BTL PR PRN (10:30)
[2019-02-10] MEDS ORDERED: ENOXAPARIN 40 MG/0.4 ML (LOVENOX) SYR SC SCH (10:30)
[2019-02-10] MEDS ORDERED: CALCIUM CARBONATE 500 MG (TUMS) TAB.CHEW PO PRN (10:30)
[2019-02-10] MEDS ORDERED: guaiFENesin/CODEINE (ROBITUSSIN AC) 10ML UDC PO PRN (10:30)
[2019-02-10] MEDS ORDERED: BISACODYL 10 MG SUPP (DULCOLAX) PR PRN (10:30)
[2019-02-10] MEDS ORDERED: ONDANSETRON 4 MG (ZOFRAN) ORAL DISSOLVE TAB PO PRN ×2 (10:30→14:00)
[2019-02-10] MEDS ORDERED: DOCUSATE SODIUM 100 MG (COLACE) CAP PO PRN (10:30)
[2019-02-10] MEDS ORDERED: diphenhydrAMINE 25 MG TAB (BENADRYL) PO PRN (10:30)
[2019-02-10] MEDS ORDERED: LACTULOSE SYRUP 10GM/15ML (ENULOSE) 30ML UDC PO PRN (10:30)
--- NOTE | 2019-02-10 10:53 | Physical Therapy Evaluation ---
PT Evaluation-General Medical Diagnosis Admission Date Feb 10, 2019 at 10:20 Medical Diagnosis: LE swelling and weakness Onset Date: Feb 10, 2019 Therapy Diagnosis Therapy Diagnosis: weakness Height/Weight Height (Feet): 5 Height (Inches): 2.00 Weight (Pounds): 180 Weight (Ounces): 0.0 Referral Physician: Taryn Reason for Referral: Evaluation/Treatment Medical History Pertinent Medical History: Atrial Fib, Arthritis, COPD, Diverticulitis, HTN Reviewed History: Yes Social History Home: Single Level Current Living Status: Alone Entry Into Home: Stairs With Railing PT Steps Into Home: 2 Prior Prior Level of Function SCALE: Activities may be completed with or without assistive devices. 0-Uwsfexkvoj-nckeqgr completes the activity by him/herself with no assistance from a helper. 5-Set-up or Clean-up Assistance-helper sets up or cleans up; patient completes activity. [place] assists only prior to or following the activity. 4-Supervision or Touching Assistance-helper provides verbal cues and/or touching/steadying and/or contact guard assistance as patient completes activity. Assistance may be provided throughout the activity or intermittently. 3-Partial/Moderate Assistance-helper does LESS THAN HALF the effort. [place] lifts, holds or supports trunk or limbs, but provides less than half the effort. 2-Substantial/Maximal Assistance-helper does MORE THAN HALF the effort. [place] lifts or holds trunk or limbs and provides more than half the effort. 5-Pvcruluae-vabbeg does ALL the effort. Patient does none of the effort to complete the activity. Or, the assistance of 2 or more helpers is required for the patient to complete the activity. If activity was not attempted, code reason: 7-Patient Refused. 9-Not Applicable-not attempted and the patient did not perform the activity before the current illness, exacerbation or injury. 10-Not Attempted due to Environmental Limitations-(lack of equipment, weather restraints, etc.). 88-Not Attempted due to Medical Conditions or Safety Concerns. Bed Mobility: 6 Transfers (B,C,W/C): 6 Gait: 6 Stairs: 6 Indoor Mobility (Ambulation): Independent Stairs: Independent Prior Devices Use: None PT Evaluation-Current Subjective Patient reports tiredness but no pain and improved breathing today. States she h as some abdominal discomfort today. Pain Numeric Pain Scale: 0-No Pain Location: No Pain Reported Objective Patient Orientation: Normal For Age ROM/Strength ROM Lower Extremities WFL; LE swelling Strength Lower Extremities R grossly 4/5; L grossly 4-/5 Integumentary/Posture Integumentary See nursing notes Bowel Incontinence: No Bladder Incontinence: No Posture WFL Neuromuscular (Tone, Coordination, Reflexes) Grossly intact Sensory Vision: Wears Glasses Hearing: Functional Transfers Roll Left to Right (QC): 6 Sit to Lying (QC): 6 Lying to Sitting/Side of Bed(Q: 6 Sit to Stand (QC): 6 Chair/Uec-ao-Rjorv Xfer(QC): 6 Car Transfer (QC): 4 Independent in STS and transfers; SBA for car transfer Gait Does the Patient Walk?: Yes Mode of Locomotion: Walk Anticipated Mode of Locomotion: Walk Walk 10 feet (QC): 6 Walk 50 ft with 2 Turns(QC): 4 Walk 150 ft (QC): 4 Walking 10ft/uneven surface-QC: 4 Distance: 300', 150' Gait Assistive Device: FWW Comments/Gait Description Able to walk short distances independently; becomes fatigued with longer distance ambulation. Wheelchair Training Does the Pt Use a Wheelchair?: No Wheel 50 ft with 2 turns (QC): 9 Wheel 150 ft (QC): 9 Type of Wheelchair: Manual Stairs 1 Step (curb) (QC): 4 4 Steps (QC): 4 12 Steps (QC): 88 [address] pattern to ascend; step to pattern to descend d/t stiffness Balance Sitting Static: Normal Sitting Dynamic: Normal Standing Static: Normal Standing Dynamic: Normal Picking up an Object (QC): 6 Treatment Supine EX: ankle pumps, heel slides, SLR, hip abd/add x10 Seated EX: hip flexion, LAQ, hip abd/add x10 Assessment/Needs Patient able to perform bed mobility, standing, and chair transfers independently. SBA for car transfer. Patient required CGA to complete ambulation across uneven surface with walker and single step. Completed 4 stairs with CGA using two handrails and reciprocal pattern ascending and step to pattern descending. Patient had fatigue and required rest breaks after functional activities. Patient able to be up ad harsha in room with FWW safely. Patient seated in chair at conclusion of treatment with all needs met at this time. Rehab Potential: Fair PT Custodial Goals High Pressure Firer Goals PT Custodial Goals Time Frame: Mar 03, 2019 Roll Left & Right (QC): 6 Sit to Lying (QC): 6 Lying-Sitting on Side/Bed(QC): 6 Sit to Stand (QC): 6 Chair/Xrv-ng-Hmlyw Xfer(QC): 6 Toilet Transfer (QC): 6 Car Transfer (QC): 6 Does the Patient Walk: Yes Walk 10 feet (QC): 6 Walk 50ft with 2 Turns (QC): 6 Walk 150 ft (QC): 6 Walking 10ft on Uneven Surface: 6 1 Step (curb) (QC): 6 4 Steps (QC): 6 12 Steps (QC): 9 Picking up an Object (QC): 6 Does the Pt use WC or Scooter?: No Type: N/A Type: N/A PT Plan Problem List Problem List: Activity Tolerance, Functional Strength, Safety, Balance, Gait, Transfer Treatment/Plan Treatment Plan: Continue Plan of Care Treatment Plan: Bed Mobility, Education, Functional Activity Shari, Functional Strength, Gait, Safety, Therapeutic Exercise, Transfers Treatment Duration: Mar 03, 2019 Frequency: At least 5 of 7 days/Wk (IRF) Estimated Hrs Per Day: 1.5 hours per day Patient and/or Family Agrees t: Yes Time/GCodes Time In: 950 Time Out: 1050 Total Billed Treatment Time: 60 Total Billed Treatment 1 visit EVModC 25min FA 20min EX 15min MICHELLE ROLLINS PT Feb 10, 2019 10:53 POS
[2019-02-10 12:15] VITALS: BP 151/73
--- NOTE | 2019-02-10 12:56 | Occupational Therapy Eval ---
OT Evaluation-General/PLF Medical Diagnosis Admission Date Feb 10, 2019 at 10:20 Medical Diagnosis: LE swelling and weakness Onset Date: Feb 10, 2019 Therapy Diagnosis Therapy Diagnosis: decreased self care skills Height/Weight Height (Feet): 5 Height (Inches): 2.00 Weight (Pounds): 180 Weight (Ounces): 0.0 Precautions Precautions/Isolations: Standard Precautions Referral Physician: Taryn Medical History Pertinent Medical History: Atrial Fib, Arthritis, COPD, Diverticulitis, HTN Reviewed History: Yes Social History Home: Single Level Current Living Status: Alone Entry Into Home: Stairs With Railing Steps Into Home: 2 ADL-Prior Level of Function SCALE: Activities may be completed with or without assistive devices. 6-Nzcprdkrbs-ciuicfs completes the activity by him/herself with no assistance from a helper. 5-Set-up or Clean-up Assistance-helper sets up or cleans up; patient completes activity. [place] assists only prior to or following the activity. 4-Supervision or Touching Assistance-helper provides verbal cues and/or touching/steadying and/or contact guard assistance as patient completes activity. Assistance may be provided throughout the activity or intermittently. 3-Partial/Moderate Assistance-helper does LESS THAN HALF the effort. [place] lifts, holds or supports trunk or limbs, but provides less than half the effort. 2-Substantial/Maximal Assistance-helper does MORE THAN HALF the effort. [place] lifts or holds trunk or limbs and provides more than half the effort. 8-Dkxepivok-mdfqji does ALL the effort. Patient does none of the effort to complete the activity. Or, the assistance of 2 or more helpers is required for the patient to complete the activity. If activity was not attempted, code reason: 7-Patient Refused. 9-Not Applicable-not attempted and the patient did not perform the activity before the current illness, exacerbation or injury. 10-Not Attempted due to Environmental Limitations-(lack of equipment, weather restraints, etc.). 88-Not Attempted due to Medical Conditions or Safety Concerns. ADL PLOF Comments Pt reports being independent prior to recent hospitalizations. Does not normally use any AD, but has a FWW if needed. Works 12 hrs/wk at [employer] / [employer] center Self Care: Independent Functional Cognition: Independent DME/Equipment: Bath Chair, Shower, Toilet/[address] Self: Yes OT Current Status Subjective Pt agreeable to therapy. Has no reports of pain. Mental Status/Objective Patient Orientation: Person, Place, Situation Current Glasses/Contacts: Yes Hearing Aids: No (Pt reports being deaf in right ear) Dentures/Partials: No Hand Dominance: Right Upper Extremity ROM Grossly WFL Upper Extremity Coordination Intact Upper Extremity Sensation Intact per pt report ADL-Treatment Eating (QC): 6 (Pt reports feeding herself without assist) Oral Hygiene (QC): 6 (Pt reports completing oral care prior to transfer to ARU. States she brushed teeth while standing at sink without assist) Shower/Bathe Self (QC): 5 (Set up for sponge bath. Declined shower today secondary to fatigue) Upper Body Dressing (QC): 5 (Set up) Lower Body Dressing (QC): 3 (Pt required min assist to thread LE into underwear. Pt states she is having a little difficulty secondary to LE edema) On/Off Footwear (QC): 3 (Pt doffed socks. Able to don left sock with increased time. Pt requires assist to don right sock. Pt states she sometimes has diffulty with right sock secondary to back issues. Educated pt on use of sock aid. Pt then able to don with set up.) Toileting Hygiene (QC): 7 (Pt declined need to complete toileting at this time.) Toilet Transfer (QC): 5 Other Treatments Pt performed gait to therapy gym with FWW, no LOB noted. Pt completed arm bike [id number] to increase overall strength and activity tolerance needed for functional task completion. Pt completed task with minimal resistance and steady pace. No rest breaks needed. Pt returned to room, sitting in chair with needs met after session. Education OT Patient Education: Rehab process Teaching Recipient: Patient Teaching Methods: Discussion Response to Teaching: Verbalize Understanding OT Vault Installer Goals Care Home Goals Time Frame: Feb 24, 2019 Eating (QC): 6 Oral Hygiene (QC): 6 Toileting Hygiene (QC): 6 Shower/Bathe Self (QC): 6 Upper Body Dressing (QC): 6 Lower Body Dressing (QC): 6 On/Off Footwear (QC): 6 Additional Goals: 1-Demonstrate ADL Tasks, 2-Verbalize Understanding, 3-Improv eStrength/Shari 1=Demonstrate adherence to instructed precautions during ADL tasks. 2=Patient will verbalize/demonstrate understanding of assistive devices/modifications for ADL. 3=Patient will improve strength/tolerance for activity to enable patient to p erform ADL's. OT Education/Plan Problem List/Assessment Assessment: Decreased Activ Tolerance, Decreased UE Strength, Dependent Transfers, Impaired Self-Care Skills Pt to benefit from skilled OT intervention for ADL training, transfers, strengthening, and home safety education to increase level of independence and allow safe discharge home. Discharge Recommendations Plan/Recommendations: Continue POC Treatment Plan/Plan of Care Treatment,Training & Education: Yes Patient would benefit from OT for education, treatment and training to promote independence in ADL's, mobility, safety and/or upper extremity function for ADL's. Plan of Care: ADL Retraining, Functional Mobility, Group Exercise/Act as Ind, UE Funct Exercise/Act Treatment Duration: Feb 24, 2019 Frequency: At least 5 of 7 days/Wk (IRF) Estimated Hrs Per Day: 1.5 hours per day Rehab Potential: Good Time/GCodes Start Time: 10:50 Stop Time: 11:50 Total Time Billed (hr/min): 60 Billed Treatment Time 1 visit, EVL(15minutes), ADLx2(35minute), Ex(10minutes) CHRIS THOMPSON OT Feb 10, 2019 12:56 POS
--- NOTE | 2019-02-10 12:56 | ST Cognitive Linguistic Eval ---
Speech Evaluation-General Medical Diagnosis LE swelling and weakness Onset Date: Feb 10, 2019 Therapy Diagnosis Therapy Diagnosis: Cognitive-communication Referral Referring Physician: Dr. Centeno Medical History Pertinent Medical History: Atrial Fib, Arthritis, COPD, Diverticulitis, HTN Reviewed History: Yes Social History Current Living Status: Alone Speech PLF-Current Status Prior Level of Function Patient lives home alone where she is independent for her daily needs. Subjective Patient was pleasant and cooperative with the cognitive assessment. Language Eval: Auditory Comprehends Simple Yes/No Ques: Functional Indent/Objects Multiple Centeno: Functional Ident/Pics in Multiple Cent[place]: Functional Follows 1-Step Commands: Functional Follows Complex Directions: Functional Follows General Conversations: Functional Language Eval: Verbal Language Completes Spontaneous Greeting: Functional Produces Auto, Serial Info: Functional Imitates Simple Words/Phrases: Functional Word Finding: Functional Requests Basic Needs: Functional States Basic Personal Info: Functional Expresses Complex Ideas: Functional Objective Cognitive Domain Attention: WNL Memory: Mild Problem Solving: Functional Executive Functions: WNL Visuospatial Skills: WNL Composite Severity Rating: WNL Clock Drawing Severity Rating: WNL Objective Formal/Standardized Tests [facility] Mental Status ([facility]) Results 27/30, normal range of function Oral Motor/Speech Production Within Normal Limits Impression The patient is a pleasant 83 year old woman who was admitted to the ARU s/p LE swelling, debility. Patient completed the UMS with a score of 27/30 obtained. Patient does not warrant skilled ST intervention at this time. Speech Patient Assess Expression of Ideas/Wants: Expression (4) Understanding Verbal Content: Understands (4) Brief Interview-Mental Status: Yes Repetition of Three Words: Three (3) Temporal Orientation: Year: Correct (3) Temporal Orientation: Month: Accurate within 5 days(2) Temporal Orientation: Day: Correct (1) Recall : Wear to say "Sock": Yes, no cue required (2) Recall : Color: Yes, no cue required (2) Recall : Bed: Yes,after cueing (1) Memory/Recall Ability: Current season, Location of own room, That he or she is in a hsp/hsp unit Speech-Plan Patient/Family Goals Patient/Family Goals: Patient plans on returning home post rehab. Treatment Plan Speech Therapy Treatment Plan: Discontinue ST The patient does not require further ST services at this time. Treatment Duration: Feb 10, 2019 Frequency: 1 time per week Estimated Hrs Per Day: .25 hour per day Rehab Potential: Fair Barriers to Learning: None identified Pt/Family Agrees to Plan: Yes Safety Risks/Education Teaching Recipient: Patient Teaching Methods: Discussion Response to Teaching: Verbalize Understanding ([place]) Education Topics Provided: Safety within her room and utilization of the call light as needed. Time Speech Therapy Time In: 12:30 Speech Therapy Time Out: 12:45 Total Billed Time: 15 Billed Treatment Time 1, JAM Batista Feb 10, 2019 12:56 POS
--- NOTE | 2019-02-10 13:03 | PM&R Post Admission Assessment ---
PM&R HP Date of Visit: Feb 10, 2019 Time of Visit: 11:00 History of Present Illness CC: Debility requiring inpatient rehab. HPI: This is an 83yoWF clinic patient of Dr. Max and general surgeon Dr. Gaston, who has a history of a recent colon perforation, who presents to inpatient rehab with severe weakness requiring hospital stay and admittance to observation in preparation for requiring inpatient rehab in order to go home because she lives alone. Pt has been pretty healthy up until recently. Has a history of AFIB maintained on oral anticoagulation and UTIs. Currently Pt feels pretty good, needs to work hard in order to regain strength and be able to go home soon. Her prior level of functioning was independent with ADLs and ambulatory and able to live by herself safely. USG was completed on bilateral legs and were negative for DVT's. Past Anfdhxu-Xzzczg-Tufrbs Hx Past Med/Social Hx: Reviewed Nursing Past Med/Soc Hx, Reviewed and Corrections made Patient Social History Marrital Status: single Employed/Student: retired Alcohol Use: Denies Use Recreational Drug Use: No Smoking Status: Never a Smoker 2nd Hand Smoke Exposure: No Physical Abuse Screen: No Sexual Abuse: No Recent Foreign Travel: No Contact w/other who traveled: No Recent Hopitalizations: No Recent Infectious Disease Expo: No Immunizations Up To Date Tetanus Booster (TDap): Unknown Pediatric: No Date of Pneumonia Vaccine: Dec 12, 2018 Date of Influenza Vaccine: Dec 12, 2018 Seasonal Allergies Seasonal Allergies: Yes Past Medical History Surgeries: Eye Surgery, Gallbladder Respiratory: Chronic Bronchitis Currently Using CPAP: No Currently Using BIPAP: No Cardiac: Atrial Fibrillation, Hypertension Reproductive: No Sexually Transmitted Disease: No HIV/AIDS: No Gastrointestinal: Diverticulosis, Chronic Diarrhea Musculoskeletal: Arthritis HEENT: Cataract Loss of Vision: Denies Hearing Impairment: Deaf Cancer: Colon Did You Recieve Any Treatments: Yes What Type of Treatment Did You: Surgical Intervention Skin/Integumentary: Recent Skin Changes History of Blood Disorders: Yes (anemia ) Adverse Reaction to Blood Rice: No (HAS HAD BLOOD WITH NO REACTION) Family History Cancer around heart 19 FATHER Cardiovascular disease 19 MOTHER Congenital heart disease 19 MOTHER Hypertension 19 MOTHER Respiratory disorder 19 FATHER (lung cancer) No Pertinent Family Hx Prior Level of Function Bed Mobility: 6 Transfers: 6 Gait: 6 Stairs: 6 Indoor Mobility (Ambulation): Independent Stairs: Independent Prior Devices Use: None Self Care: Independent Functional Cognition: Independent 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 Drive Self: Yes Current Level of Fuctioning Roll Left to Right: 6 Sit to Lyin Lying to Sitting/Side of Bed: 6 Sit to Stand: 6 Chair/Dpv-er-Psbgv Xfer: 6 Car Transfer: 4 Does the Patient Walk: Yes Mode of Locomotion: Walk Anticipated Mode of Locomotion: Walk Walk 10 feet: 6 Walk 50 ft with 2 Turns: 4 Walk 150 ft: 4 Walking 10ft on uneven surface: 4 Gait Assistive Device: FWW Does the Pt Use a Wheelchair: No Wheel 50 ft with 2 turns: 9 Wheel 150 ft: 9 Type of Wheelchair: Manual 1 Step (curb): 4 4 Steps: 4 12 Steps: 88 Picking up an Object: 6 Eatin (Pt reports feeding herself without assist) Oral Hygiene: 6 (Pt reports completing oral care prior to transfer to ARU. States she brushed teeth while standing at sink without assist) Shower/Bathe Self: 5 (Set up for sponge bath. Declined shower today secondary to fatigue) Upper Body Dressin (Set up) Lower Body Dressin (Pt required min assist to thread LE into underwear. Pt states she is having a little difficulty secondary to LE edema) On/Off Footwear: 3 (Pt doffed socks. Able to don left sock with increased time. Pt requires assist to don right sock. Pt states she sometimes has diffulty with right sock secondary to back issues. Educated pt on use of sock aid. Pt then able to don with set up.) Toileting Hygiene: 7 (Pt declined need to complete toileting at this time.) Toilet Transfer: 5 PM&R Allergy/Meds/Data Review Allergies Coded Allergies: Penicillins (Unverified Allergy, Mild, 02/02/19) iodine (Unverified Allergy, Mild, 02/02/19) Sulfa (Sulfonamide Antibiotics) (Verified Allergy, Unknown, 02/02/19) sulfamethoxazole (Verified Allergy, Unknown, 02/02/19) trimethoprim (Verified Allergy, Unknown, 02/02/19) Home Medications Scheduled Acetaminophen (Tylenol Extra Strength), 500 MG PO BID, (Reported) Apixaban (Eliquis), 2.5 MG PO BID, (Reported) Calcium Carbonate/Vitamin D3 (Calcium 500 + Vit D Caplet), 1 TAB PO DAILY, (Reported) Cholecalciferol (Vitamin D3) (Vitamin D3), 1,000 UNIT PO DAILY, (Reported) Hydrocodone/Acetaminophen (Hydrocodone-Acetamin 7.5-325), 1-2 TAB PO Q4H Levofloxacin (Levaquin), 500 MG PO DAILY Metoprolol Succinate (Metoprolol Succinate), 100 MG PO DAILY, (Reported) Metronidazole (Flagyl), 500 MG PO BID Montelukast Sodium (Montelukast Sodium), 10 MG PO HS, (Reported) Multivitamin (Multi-Vitamin Daily), 1 EACH PO DAILY, (Reported) Scheduled PRN Ondansetron HCl (Zofran), 4 MG PO Q4H PRN for NAUSEA/VOMITING-1ST LINE Current Medications Current Medications Reviewed Review of Systems Constitutional: see HPI, malaise, weakness Musculoskeletal: back pain, joint pain Psychiatric/Neurological: Depressed All Other Systems Reviewed Negative Unless Noted: Yes Physical Exam Physical Exam Vital Signs Vital Signs - First Documented 02/10/19 12:15 Temp 36.3 Pulse 73 Resp 20 B/P (MAP) 151/73 Pulse Ox 96 O2 Delivery Room Air Capillary Refill : Height, Weight, BMI Height: 5'2.00" Weight: 180lbs. 0.0oz. 81.157180ga; 33.71 BMI Method:Stated General Appearance: No Apparent Distress, WD/WN, Chronically ill, Obese Eyes: Bilateral Eye Normal Inspection, Bilateral Eye PERRL HEENT: PERRL/EOMI, Normal ENT Inspection, Pharynx Normal Neck: Full Range of Motion, Normal Inspection, Non Tender, Supple, Carotid Bruit Respiratory: Chest Non Tender, Lungs Clear, Normal Breath Sounds, No Accessory Muscle Use, No Respiratory Distress Cardiovascular: Regular Rate, Rhythm, No Edema, No Gallop, No JVD, No Murmur, Normal Peripheral Pulses Gastrointestinal: Normal Bowel Sounds, No Organomegaly, No Pulsatile Mass, Non Tender, Soft Back: Normal Inspection, No CVA Tenderness, No Vertebral Tenderness Extremity: Normal Capillary Refill, Normal Inspection, Normal Range of Motion, Non Tender, No Calf Tenderness, No Pedal Edema Neurologic/Psychiatric: Alert, Oriented x3, No Motor/Sensory Deficits (gener alized weakness legs 4/5, fall risk when ambulating to gym), Normal 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, 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 Skin: Normal Color, Warm/Dry Lymphatic: No Adenopathy PM&R Medical Assessment & Plan REHAB/MEDICAL ASSESSMENT AND PLAN: REHAB IMPAIRMENT GROUP: Debility ETIOLOGIC DIAGNOSIS: Debility with recent colon perforation admission The comorbidities that impact the patients function and/or functional outcome by: Recent colon perforation, chronic atrial fibrillation, chronic oral anticoagulation, hypertension REHAB PLAN: The patient is being admitted to our comprehensive inpatient rehabilitation facility and can tolerate the intensity of service consisting of at least: 180 minutes of therapy a day, 5 out of 7 days a week Rehab treatment will consist of: Physical therapy will help fall prevention and ambulation with assistive device, OT will help regain independent ADLs The patient/family has a good understanding of our discharge process and will benefit from an interdisciplinary inpatient rehabilitation program. The patient has potential to make improvement and is in need of at least two of the following multidisciplinary therapies including but not limited to physical, occupational, speech, and prosthetics and orthotics. Additionally the patient will need services from respiratory, nutritional services, wound care, psychology, etc. (Customize this to each patient). Given the patients complex condition and risk of further medical complications, rehabilitation services cannot be safely or effectively provided at a lower level of care such as a long term facility. BARRIERS TO DISCHARGE: Lives at home alone will need to strengthen in order to assure she can remain independent ESTIMATED LOS: 7 days DISPOSITION: Home with home care RELEVANT CHANGES SINCE PREADMISSION SCREENING: I have compared the patients medical and functional status at the time of the preadmission screening and there are: no changes PROGNOSIS: Good REHABILITATION GOALS: 1. All therapies will focus on regaining enough strength in order to build confidence and decreased risk due to recent failure at home after discharge All the above goals were reviewed with the patient and he/she is in agreement. By signing this document, I acknowledge that I have personally performed a full physical examination on this patient within 24 hours of admission to this inpatient rehabilitation facility and have determined the patient to be able to tolerate the above course of treatment at an intensive level for a reasonable period of time. I will be completing a detailed individualized Plan of Care for this patient by day #4 of the patients stay based upon the Preadmission Screen, the Post-Admission Evaluation, and the therapy evaluations. Admission Dx/Comorbidities: (1) Debility ICD Codes: R53.81 - Other malaise (2) History of hemicolectomy Status: Chronic ICD Codes: Z90.49 - Acquired absence of other specified parts of digestive tract (3) Paroxysmal A-fib Status: Chronic ICD Codes: I48.0 - Paroxysmal atrial fibrillation (4) History of colon cancer Status: Chronic ICD Codes: Z85.038 - Personal history of other malignant neoplasm of large intestine (5) HTN (hypertension) Status: Chronic ICD Codes: I10 - Essential (primary) hypertension (6) Asthma Status: Chronic ICD Codes: J45.909 - Unspecified asthma, uncomplicated (7) Anemia ICD Codes: D64.9 - Anemia, unspecified (8) Dyspnea Status: Acute ICD Codes: R06.00 - Dyspnea, unspecified (9) Fatigue Status: Acute ICD Codes: R53.83 - Other fatigue NICHELLE LR DO Feb 10, 2019 13:03 POS
[2019-02-10] MEDS ORDERED: NON-FORMULARY MEDICATION 1 EA EA (Ondansetron HCl (Zofran) 4 MG) PO PRN (13:30)
[2019-02-10] MEDS ORDERED: NON-FORMULARY MEDICATION 1 EA EA (Hydrocodone/Acetaminophen (Hydrocodone-Acetamin 7.5-325) PO SCH (13:30)
[2019-02-10] MEDS ORDERED: HYDROcodone/APAP 7.5 MG/325 MG (LORTAB, LORCET PLUS) TABLET PO PRN (14:00)
--- NOTE | 2019-02-10 14:48 | Therapy Group Daily Note ---
Therapy Daily Group Note Patient Education Topic Other List Below (proper handwashing, prevention of communicable disease, memory strategies and activity, ) Exercises LE Seated Exercise, UE Exercise Session Ratio (pt:therapist): 4:1 Goal of Session: Education on ARU Expectations, Memory Strategies, Other (list) (handwashing technique) Goal Met for this Session: Yes Pt Benefit of Group: Contributions to Others, Improved Cognition, Socialization Other/Notes Pt. participated in group PT OT session. Pt. came and went via w/c and assist for O2 3L. Pts. introduced selves and shared their favorite Yani kassi . Pts were educated about the ARU practices and requirements. Education focused on proper handwashing and how to prevent communicable disease. Pts. enjoyed participating in a game requiring bag toss to images on floor and interacting to remember the matching image on opposing area of floor. Pt. to room with assist to bed , jarrell at hand and needs met Start Time: 13:00 Stop Time: 14:15 Total Billed Treatment Time: 75 Total Billed Treatment 1,GRP NICK CLAY ORDNANCE ARTIFICER Feb 10, 2019 14:48 POS
[2019-02-10] MEDS ORDERED: LEVOFLOXACIN 500 MG TAB (LEVAQUIN) PO SCH (15:30)
[2019-02-10 16:12] VITALS: BP 156/72
[2019-02-10] MEDS: MONTELUKAST 10 MG (SINGULAIR) TAB PO SCH (20:47)
[2019-02-10] MEDS: POLYETHYLENE GLYCOL 17 GM (MIRALAX) PACK PO SCH (20:48)
[2019-02-10] MEDS: ACETAMINOPHEN 500 MG TAB (TYLENOL) PO SCH (20:48)
[2019-02-10] MEDS: SENNA W/DOCUSATE (SENOKOT S) TABLET PO SCH (20:48)
[2019-02-10] MEDS: APIXABAN 2.5 MG (ELIQUIS) TABLET PO SCH (20:48)
[2019-02-10] MEDS: metroNIDAZOLE 500 MG (FLAGYL) TAB PO SCH (20:48)
[2019-02-10] MEDS: MELATONIN 3 MG TABLET PO PRN (20:50)
[2019-02-10] MEDS ORDERED: NON-FORMULARY MEDICATION 1 EA EA (Acetaminophen (Tylenol Extra Strength) 500 MG) PO SCH (21:00)
[2019-02-10] MEDS ORDERED: DOCUSATE SODIUM 100 MG (COLACE) CAP PO SCH (21:00)
[2019-02-10] MEDS ORDERED: METRONIDAZOLE 500 MG PO SCH (21:00)
[2019-02-11] MEDS: MULTIVIT W/MINERALS TAB (THERAGRAN M) PO SCH (05:22)
[2019-02-11 05:27] LABS: BASOPHILS % (AUTO) 0 % (0-10); EOSINOPHILS # (AUTO) 0.4 10^3/uL (0.0-0.3); EOSINOPHILS % (AUTO) 5 % (0-10); HEMATOCRIT 33 % (35-52); HEMOGLOBIN 10.9 G/DL (11.5-16.0); LYMPHOCYTES # (AUTO) 1.3 X 10^3 (1.0-4.0); LYMPHOCYTES % (AUTO) 16 % (12-44); MEAN CORPUSCULAR HEMOGLOBIN 30 PG (25-34); MEAN CORPUSCULAR HGB CONC 33 G/DL (32-36); MEAN CORPUSCULAR VOLUME 92 FL (80-99); MEAN PLATELET VOLUME 9.2 FL (7.4-10.4); MONOCYTES % (AUTO) 12 % (0-12); NEUTROPHILS # (AUTO) 5.7 X 10^3 (1.8-7.8); NEUTROPHILS % (AUTO) 68 % (42-75); PLATELET COUNT 272 10^3/uL (130-400); RED CELL DISTRIBUTION WIDTH 14.9 % (10.0-14.5); WHITE BLOOD COUNT 8.4 10^3/uL (4.3-11.0)
[2019-02-11 05:39] VITALS: BP 165/74
[2019-02-11 05:43] LABS: ALANINE AMINOTRANSFERASE < 6 U/L (0-55); ALBUMIN 2.9 GM/DL (3.2-4.5); ALKALINE PHOSPHATASE 45 U/L (40-136); BILIRUBIN,TOTAL 0.2 MG/DL (0.1-1.0); BUN/CREATININE RATIO 13; CALCIUM 7.9 MG/DL (8.5-10.1); CARBON DIOXIDE 28 MMOL/L (21-32); CHLORIDE 102 MMOL/L (98-107); CREATININE SERUM 0.77 MG/DL (0.60-1.30); GFR ESTIMATED > 60; GLUCOSE 107 MG/DL (70-105); POTASSIUM 3.7 MMOL/L (3.6-5.0); SODIUM 139 MMOL/L (135-145); TOTAL PROTEIN 5.2 GM/DL (6.4-8.2)
[2019-02-11 08:00] VITALS: BP 131/77
--- NOTE | 2019-02-11 08:46 | Physical Therapy Daily Note ---
PT Daily Note-Current Subjective Pt agreeable to PT session. Pain Numeric Pain Scale: 0-No Pain Appearance Pt sitting up in recliner awake and alert upon arrival and at end of session with call light, phone and bedside table within reach. Mental Status Patient Orientation: Person, Place, Time, Eyes Open, Situation Attachments: Saline Lock Transfers SCALE: Activities may be completed with or without assistive devices. 1-Ntcjmxlynm-rimtfqt completes the activity by him/herself with no assistance from a helper. 5-Set-up or Clean-up Assistance-helper sets up or cleans up; patient completes activity. [employer] assists only prior to or following the activity. 4-Supervision or Touching Assistance-helper provides verbal cues and/or touching/steadying and/or contact guard assistance as patient completes activity. Assistance may be provided throughout the activity or intermittently. 3-Partial/Moderate Assistance-helper does LESS THAN HALF the effort. [employer] lifts, holds or supports trunk or limbs, but provides less than half the effort. 2-Substantial/Maximal Assistance-helper does MORE THAN HALF the effort. [employer] lifts or holds trunk or limbs and provides more than half the effort. 3-Ikijcmubl-qhfizr does ALL the effort. Patient does none of the effort to complete the activity. Or, the assistance of 2 or more helpers is required for the patient to complete the activity. If activity was not attempted, code reason: 7-Patient Refused. 9-Not Applicable-not attempted and the patient did not perform the activity before the current illness, exacerbation or injury. 10-Not Attempted due to Environmental Limitations-(lack of equipment, weather restraints, etc.). 88-Not Attempted due to Medical Conditions or Safety Concerns. Sit to Stand (QC): 6 Gait Training Distance: 150 x2 Walk 10 feet (QC): 6 Walk 50 ft with 2 Turns(QC): 4 Walk 150 ft (QC): 4 Gait Persons Needed: 1 Gait Assistive Device: FWW fair pace, step length and height, no LOB or unsteadiness Exercises NuStep Minutes: 10 NuStep Workload: 5 (Arms 5 for 5 minutes, seat 5 entire time) Treatments education, safety, transfer, gait, strength, balance, activity tolerance, functional mobility Assessment Current Status: Good Progress some fatigue and SOA with activities PT Account Director Goals Account Director Goals PT Custodial Goals Time Frame: Mar 03, 2019 Roll Left & Right (QC): 6 Sit to Lying (QC): 6 Lying-Sitting on Side/Bed(QC): 6 Sit to Stand (QC): 6 Chair/Nmf-hn-Cwvme Xfer(QC): 6 Toilet Transfer (QC): 6 Car Transfer (QC): 6 Does the Patient Walk: Yes Walk 10 feet (QC): 6 Walk 50ft with 2 Turns (QC): 6 Walk 150 ft (QC): 6 Walking 10ft on Uneven Surface: 6 1 Step (curb) (QC): 6 4 Steps (QC): 6 12 Steps (QC): 9 Picking up an Object (QC): 6 Does the Pt use WC or Scooter?: No Type: N/A Type: N/A PT Plan Treatment/Plan Treatment Plan: Continue Plan of Care Treatment Plan: Bed Mobility, Education, Functional Activity Shari, Functional Strength, Gait, Safety, Therapeutic Exercise, Transfers Treatment Duration: Mar 03, 2019 Frequency: At least 5 of 7 days/Wk (IRF) Estimated Hrs Per Day: 1.5 hours per day Patient and/or Family Agrees t: Yes Safety Risks/Education Patient Education: Gait Training, Transfer Techniques, Safety Issues Teaching Recipient: Patient Teaching Methods: Discussion Response to Teaching: Verbalize Understanding Time/GCodes Time In: 846 Time Out: 907 Total Billed Treatment Time: 21 Total Billed Treatment 1 visit, EX x21 min ASHA GARCÍA DISPATCH SUPERVISOR Feb 11, 2019 08:46 POS
[2019-02-11] MEDS ORDERED: NON-FORMULARY MEDICATION 1 EA EA (Cholecalciferol (Vitamin D3) (Vitamin D3) 1,000 UNIT) PO SCH (09:00)
[2019-02-11] MEDS ORDERED: NON-FORMULARY MEDICATION 1 EA EA (Calcium Carbonate/Vitamin D3 (Calcium 500 + Vit D Caplet PO SCH (09:00)
--- NOTE | 2019-02-11 09:00 | NUR ---
pt states 3 BMs this am. Pt states this is normal for her.
[2019-02-11] MEDS: APIXABAN 2.5 MG (ELIQUIS) TABLET PO SCH ×2 (09:41→20:27)
[2019-02-11] MEDS: metroNIDAZOLE 500 MG (FLAGYL) TAB PO SCH ×2 (09:41→20:27)
[2019-02-11] MEDS: meTOprolol SUCCINATE 100 MG (TOPROL XL) TAB PO SCH (09:42)
[2019-02-11] MEDS: VITAMIN D3 1,000 UNITS (CHOLECALCIFEROL) TABLET PO SCH (09:43)
[2019-02-11] MEDS: ACETAMINOPHEN 500 MG TAB (TYLENOL) PO SCH ×2 (09:43→20:27)
[2019-02-11] MEDS: CALCIUM CARB + VIT D 600 MG (CALCARB + D) TAB PO SCH (09:51)
[2019-02-11] MEDS: SENNA W/DOCUSATE (SENOKOT S) TABLET PO SCH ×2 (09:52→20:46)
[2019-02-11] MEDS: POLYETHYLENE GLYCOL 17 GM (MIRALAX) PACK PO SCH ×2 (09:52→20:46)
[2019-02-11] MEDS: LEVOFLOXACIN 250 MG TAB (LEVAQUIN) PO SCH (11:38)
--- NOTE | 2019-02-11 12:14 | PM&R Progress Note ---
Subjective HPI/CC On Admission Date Seen by Provider: Feb 11, 2019 Time Seen by Provider: 10:00 Review of Systems General: Fatigue Pulmonary: Dyspnea Gastrointestinal: Abdominal Pain Musculoskeletal: leg pain Objective Exam Vital Signs Vital Signs Date Time Temp Pulse Resp B/P (MAP) Pulse Ox O2 Delivery O2 Flow Rate FiO2 02/12/19 09:00 Room Air 02/12/19 09:00 83 159/81 (107) 96 02/12/19 05:48 36.8 20 Capillary Refill : General Appearance: No Apparent Distress, WD/WN, Chronically ill, Obese HEENT: PERRL/EOMI, Normal ENT Inspection, Pharynx Normal Neck: Full Range of Motion, Normal Inspection, Non Tender, Supple, Carotid Bruit Respiratory: Chest Non Tender, Lungs Clear, Normal Breath Sounds, No Accessory Muscle Use, No Respiratory Distress Cardiovascular: Regular Rate, Rhythm, No Edema, No Gallop, No JVD, No Murmur, Normal Peripheral Pulses Gastrointestinal: Normal Bowel Sounds, No Organomegaly, No Pulsatile Mass, Non Tender, Soft Back: Normal Inspection, No CVA Tenderness, No Vertebral Tenderness Extremity: Normal Capillary Refill, Normal Inspection, Normal Range of Motion, Non Tender, No Calf Tenderness, No Pedal Edema Neurologic/Psychiatric: Alert, Oriented x3, No Motor/Sensory Deficits (general ized weakness legs 4/5, fall risk when ambulating to gym), Normal 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 FIM Transfers Therapy Code Descriptions/Definitions Functional [place] Measure: 0=Not Assessed/NA 4=Minimal Assistance 1=Total Assistance 5=Supervision or Setup 2=Maximal Assistance 6=Modified [place] 3=Moderate Assistance 7=Complete IndependenceSCALE: Activities may be completed with or without assistive devices. 7-Ntlicgocdc-xbwylna completes the activity by him/herself with no assistance from a helper. 5-Set-up or Clean-up Assistance-helper sets up or cleans up; patient completes activity. [place] assists only prior to or following the activity. 4-Supervision or Touching Assistance-helper provides verbal cues and/or touching/steadying and/or contact guard assistance as patient completes activity. Assistance may be provided throughout the activity or intermittently. 3-Partial/Moderate Assistance-helper does LESS THAN HALF the effort. [place] lifts, holds or supports trunk or limbs, but provides less than half the effort. 2-Substantial/Maximal Assistance-helper does MORE THAN HALF the effort. [place] lifts or holds trunk or limbs and provides more than half the effort. 1-Wjurqrmoi-fcdkwg does ALL the effort. Patient does none of the effort to complete the activity. Or, the assistance of 2 or more helpers is required for the patient to complete the activity. If activity was not attempted, code reason: 7-Patient Refused. 9-Not Applicable-not attempted and the patient did not perform the activity before the current illness, exacerbation or injury. 10-Not Attempted due to Environmental Limitations-(lack of equipment, weather restraints, etc.). 88-Not Attempted due to Medical Conditions or Safety Concerns. Roll Left to Right (QC): 6 Sit to Lying (QC): 6 Sit to Stand (QC): 6 Chair/Bfg-fs-Jaqld Xfer(QC): 6 Car Transfer (QC): 4 Gait Training Does the Patient Walk?: Yes Distance: 150 x2 Walk 10 feet (QC): 6 Walk 50 ft with 2 Turns(QC): 4 Walk 150 ft (QC): 4 Walking 10ft/uneven surface-QC: 4 Gait Persons Needed: 1 Gait Assistive Device: FWW Wheelchair Training Does the Pt Use a Wheelchair?: No Wheel 50 ft with 2 turns (QC): 9 Wheel 150 ft (QC): 9 Type of Wheelchair: Manual Stair Training 1 Step (curb) (QC): 4 4 Steps (QC): 4 12 Steps (QC): 88 Balance Picking up an Object (QC): 6 ADL-Treatment Eating (QC): 6 (Pt reports feeding herself without assist) Oral Hygiene (QC): 6 (Pt reports completing oral care prior to transfer to ARU. States she brushed teeth while standing at sink without assist) Shower/Bathe Self (QC): 5 (Set up for sponge bath. Declined shower today secondary to fatigue) Upper Body Dressing (QC): 5 (Set up) Lower Body Dressing (QC): 3 (Pt required min assist to thread LE into underwear . Pt states she is having a little difficulty secondary to LE edema) On/Off Footwear (QC): 3 (Pt doffed socks. Able to don left sock with increased time. Pt requires assist to don right sock. Pt states she sometimes has diffulty with right sock secondary to back issues. Educated pt on use of sock aid. Pt then able to don with set up.) Toileting Hygiene (QC): 7 (Pt declined need to complete toileting at this time.) Toilet Transfer (QC): 5 Assessment/Plan Assessment and Plan (1) Debility (2) History of hemicolectomy Status: Chronic (3) Paroxysmal A-fib Status: Chronic (4) History of colon cancer Status: Chronic (5) HTN (hypertension) Status: Chronic (6) Asthma Status: Chronic (7) Anemia (8) Dyspnea Status: Acute (9) Fatigue Status: Acute NICHELLE LR DO Feb 11, 2019 12:14 POS
--- NOTE | 2019-02-11 12:15 | Individualized Plan of Care ---
Individualized Plan of Care Rehab Nursing IPOC Order Admission Date Feb 10, 2019 at 10:20 Current Orders Orders Admission Arrival Bed Request (02/10/19 10:20) Admission Order(Inpt,Obs,Sdc) (02/10/19 10:27) Vital Signs: Per Unit Policy ( 08,16,00 (02/10/19 10:27) Peng Elder 09,21 (02/10/19 10:27) Patient Registration Representative-Inpt Rehab Con (02/10/19 10:27) Rehab Nursing Orders-Ipoc (02/10/19 10:27) Physical Therapy Rehab Orders (02/10/19 10:27) Occupational Therapy Rehab Ord (02/10/19 10:27) Speech Therapy Rehab Orders (02/10/19 10:27) Cbc With Automated Diff (02/11/19 06:00) Comprehensive Metabolic Panel (02/11/19 06:00) General/Regular (02/10/19 Dinner) Intake & Output 06,14,22 (02/10/19 10:27) Precautions (Aru) (02/10/19 10:27) Weekly Weight WEEK (02/10/19 10:27) Rehab-Intensity Of Therapy (02/10/19 10:27) Initiate Admission Nursing Pro .admission (02/10/19 10:27) Acetaminophen Tablet (Tylenol Tablet) (02/10/19 10:30) Alprazolam Tablet (Xanax Tablet) (02/10/19 10:30) Calcium Carbonate Chew Tablet (Antacid C (02/10/19 10:30) Diphenhydramine Tablet (Benadryl Tablet) (02/10/19 10:30) Docusate Sodium Capsule (Colace Capsule) (02/10/19 21:00) Docusate Sodium Capsule (Colace Capsule) (02/10/19 10:30) Bisacodyl Suppository (Dulcolax Supposit (02/10/19 10:30) Lactulose Oral Solution (Enulose Oral So (02/10/19 10:30) Na Phos/Na Biphos Enema (Fleet Enema Anand (02/10/19 10:30) Guaifenesin/Codeine Syrup (Robitussin Ac (02/10/19 10:30) Loperamide Tablet (Imodium Tablet) (02/10/19 10:30) Enoxaparin Injection (Lovenox Injection) (02/10/19 10:30) Melatonin Tablet (Melatonin Tablet) (02/10/19 10:30) Polyethylene Glycol Powder Pkt (Miralax (02/10/19 21:00) Ondansetron Oral Dissolve Tab (Zofran (02/10/19 10:30) Senna S Tablet (Senokot S Tablet) (02/10/19 21:00) Ambulate 08,12,20 (02/10/19 12:42) Sequential Compression Device Q4H (02/10/19 12:42) Dvt/Vte Risk - Notifiy Physici Q4H (02/10/19 12:42) Patient Visit (02/10/19 ) Speech Sound Lang Comp (02/10/19 ) Patient Visit (02/10/19 ) Pt Eval Moderate Complexity (02/10/19 ) Exercise Therap, Ea 15 Min (02/10/19 ) Functional Activities, Ea 15 (02/10/19 ) Apixaban Tablet (Eliquis Tablet) (02/10/19 21:00) Metoprolol Succinate (Xl) Tab (Toprol Xl (02/11/19 09:00) Montelukast Tablet (Singulair Tablet) (02/10/19 21:00) Therapeutic Multivitamin Tab (Vitamins, (02/11/19 07:00) (Nf) Acetaminophen (Tylenol Extra Streng (02/10/19 21:00) (Nf) Calcium Carbonate/Vitamin D3 (Calci (02/11/19 09:00) (Nf) Cholecalciferol (Vitamin D3) (Vitam (02/11/19 09:00) (Nf) Hydrocodone/Acetaminophen (Hydrocod (02/10/19 13:30) (Nf) Metronidazole (Flagyl) (02/10/19 21:00) (Nf) Ondansetron Hcl (Zofran) (02/10/19 13:30) Cholecalciferol Capsule/Tablet (Vitamin (02/11/19 09:00) Ondansetron Oral Dissolve Tab (Zofran (02/10/19 14:00) Calcium Carbonate W/Vitamin D3 (Calcarb (02/11/19 08:00) Hydrocodone/Apap 7.5/325 Tab (Lortab 7. (02/10/19 14:00) Acetaminophen Tablet (Tylenol Tablet) (02/10/19 21:00) Metronidazole Tablet (Flagyl Tablet) (02/10/19 21:00) Patient Visit (02/10/19 ) Therapeutic, Group (02/10/19 ) Levofloxacin Tablet (Levaquin Tablet) (02/10/19 15:30) Levofloxacin Tablet (Levaquin Tablet) (02/11/19 11:00) Patient Visit (02/11/19 ) Exercise Therap, Ea 15 Min (02/11/19 ) Peng Elder (02/11/19 10:53) Rehab Nursing Orders: Ongoing Assess. of Cognitive Status, Ongoing Assess. of Function Status, Bladder Training, Bowel Management, Disease Management & Educaiton, DVT Prophylaxis, Fall Prevention, Fluid/Electrolyte/Nutrition Mgmt, Infection Prevention, Medication Management & Education, Management of Risks & Complications, Management of Skin Intergrity, Nutrition Management, Pain Management, Patient/Family Support, Safety Management Intensity of Therapy to be met Patient to be seen: Min.3h per day/5 of 7d PT IPOC Problem List: Activity Tolerance, Functional Strength, Safety, Balance, Gait, Transfer Treatment Plan: Continue Plan of Care Bed Mobility, Education, Functional Activity Shari, Functional Strength, Gait, Safety, Therapeutic Exercise, Transfers Treatment Duration: Mar 03, 2019 Frequency: At least 5 of 7 days/Wk (IRF) Estimated Hrs Per Day: 1.5 hours per day OT IPOC Problems: Decreased Activ Tolerance, Decreased UE Strength, Dependent Transfers, Impaired Self-Care Skills OT Treatment, Training and Edu: Yes OT Problems Pt to benefit from skilled OT intervention for ADL training, transfers, strengthening, and home safety education to increase level of independence and allow safe discharge home. Plan of Care: ADL Retraining, Functional Mobility, Group Exercise/Act as Ind, UE Funct Exercise/Act Treatment Duration: Feb 24, 2019 Frequency: At least 5 of 7 days/Wk (IRF) Estimated Hrs Per Day: 1.[address] IPOC Speech Therapy Treatment Plan: Discontinue ST Treatment Duration: Feb 10, 2019 Frequency: 1 time per week Estimated Hrs Per Day: .25 hour per day Patient Registration Representative/Case Mgmt Patient Registration Representative/Case Managemen: Discharge Planning Dietitian/Track Watchman Dietitian/Track Watchman to monitor nutritional status and make changes and/or recommendations as needed and work with speech pathology on dietary upgrades as the occur. Physician IPOC Medical Issues being managed closely and that require the 24 hour availability of a physician: Recent hospital stay with colon perforation with residual weakness and readmit will need extensive monitoring Medical Issues: Bowel/Bladder Function, DVT Prophylaxis, Falls Precautions, Fluid/Electrolyte/Nutrition Balance, Infection Protection, Pain Management Brief Synthesis of Preadmission Screen, Post-Admission Evaluation, and Therapy Evaluations: PT will help patient gain lost confidence and improve strength OT will focus on regaining independent ADL's Medical Prognosis: Good Anticipated Length of Stay: 7 days NICHELLE LR DO Feb 11, 2019 12:14 POS
--- NOTE | 2019-02-11 14:00 | NUR ---
dr Centeno notified of lower extremity edema/MEIR hose ordered.
[2019-02-11 16:27] VITALS: BP 161/77
[2019-02-11] MEDS: MONTELUKAST 10 MG (SINGULAIR) TAB PO SCH (20:27)
[2019-02-11] MEDS: MELATONIN 3 MG TABLET PO PRN (20:35)
[2019-02-12 05:48] VITALS: BP 168/73
[2019-02-12] MEDS: MULTIVIT W/MINERALS TAB (THERAGRAN M) PO SCH (06:05)
[2019-02-12 09:00] VITALS: BP 159/81
--- NOTE | 2019-02-12 10:00 | NUR ---
Pt resting comfortably in chair with legs elevated. Pt states she is feels more like herself today. Pt denies pain at this time. Denies any concerns/questions.
[2019-02-12] MEDS: APIXABAN 2.5 MG (ELIQUIS) TABLET PO SCH ×2 (10:05→20:18)
[2019-02-12] MEDS: metroNIDAZOLE 500 MG (FLAGYL) TAB PO SCH ×2 (10:05→20:18)
[2019-02-12] MEDS: VITAMIN D3 1,000 UNITS (CHOLECALCIFEROL) TABLET PO SCH (10:05)
[2019-02-12] MEDS: CALCIUM CARB + VIT D 600 MG (CALCARB + D) TAB PO SCH (10:05)
[2019-02-12] MEDS: ACETAMINOPHEN 500 MG TAB (TYLENOL) PO SCH ×2 (10:06→20:18)
[2019-02-12] MEDS: meTOprolol SUCCINATE 100 MG (TOPROL XL) TAB PO SCH (10:08)
[2019-02-12] MEDS: SENNA W/DOCUSATE (SENOKOT S) TABLET PO SCH ×2 (10:10→19:33)
[2019-02-12] MEDS: POLYETHYLENE GLYCOL 17 GM (MIRALAX) PACK PO SCH ×2 (10:10→19:33)
[2019-02-12] MEDS: LEVOFLOXACIN 250 MG TAB (LEVAQUIN) PO SCH (10:58)
--- NOTE | 2019-02-12 12:19 | PM&R Progress Note ---
Subjective HPI/CC On Admission Date Seen by Provider: Feb 12, 2019 Time Seen by Provider: 11:30 Subjective/Events-last exam Patient doing very well Had 3 bowel movements this morning which is her usual since her colon surgery No pain is reported Slept well last night Up ad harsha. in her room now Check meds and labs Reviewed therapy notes Conferred with manager procurement of Systems General: Fatigue Gastrointestinal: Diarrhea Objective Exam Vital Signs Vital Signs Date Time Temp Pulse Resp B/P (MAP) Pulse Ox O2 Delivery O2 Flow Rate FiO2 02/12/19 20:58 Room Air 02/12/19 17:19 36.8 69 18 151/78 (102) 97 Capillary Refill : General Appearance: No Apparent Distress, WD/WN, Chronically ill, Obese HEENT: PERRL/EOMI, Normal ENT Inspection, Pharynx Normal Neck: Full Range of Motion, Normal Inspection, Non Tender, Supple, Carotid Bruit Respiratory: Chest Non Tender, Lungs Clear, Normal Breath Sounds, No Accessory Muscle Use, No Respiratory Distress Cardiovascular: Regular Rate, Rhythm, No Edema, No Gallop, No JVD, No Murmur, Normal Peripheral Pulses Gastrointestinal: Normal Bowel Sounds, No Organomegaly, No Pulsatile Mass, Non Tender, Soft Back: Normal Inspection, No CVA Tenderness, No Vertebral Tenderness Extremity: Normal Capillary Refill, Normal Inspection, Normal Range of Motion, Non Tender, No Calf Tenderness, No Pedal Edema Neurologic/Psychiatric: Alert, Oriented x3, No Motor/Sensory Deficits (generalized weakness legs 4/5, fall risk when ambulating to gym), Normal Mood/Affect, sustainability analyst II-XII Norm as Tested Skin: Normal Color, Warm/Dry Lymphatic: No Adenopathy Results/Procedures Lab Patient resulted labs reviewed. FIM Transfers Therapy Code Descriptions/Definitions Functional [place] Measure: 0=Not Assessed/NA 4=Minimal Assistance 1=Total Assistance 5=Supervision or Setup 2=Maximal Assistance 6=Modified [place] 3=Moderate Assistance 7=Complete IndependenceSCALE: Activities may be completed with or without assistive devices. 3-Lkyefxpfqc-jfpjcxl completes the activity by him/herself with no assistance from a helper. 5-Set-up or Clean-up Assistance-helper sets up or cleans up; patient completes activity. [place] assists only prior to or following the activity. 4-Supervision or Touching Assistance-helper provides verbal cues and/or touching/steadying and/or contact guard assistance as patient completes activity. Assistance may be provided throughout the activity or intermittently. 3-Partial/Moderate Assistance-helper does LESS THAN HALF the effort. [place] lifts, holds or supports trunk or limbs, but provides less than half the effort. 2-Substantial/Maximal Assistance-helper does MORE THAN HALF the effort. [place] lifts or holds trunk or limbs and provides more than half the effort. 1-Bdtlynlio-kfcpzo does ALL the effort. Patient does none of the effort to complete the activity. Or, the assistance of 2 or more helpers is required for the patient to complete the activity. If activity was not attempted, code reason: 7-Patient Refused. 9-Not Applicable-not attempted and the patient did not perform the activity before the current illness, exacerbation or injury. 10-Not Attempted due to Environmental Limitations-(lack of equipment, weather restraints, etc.). 88-Not Attempted due to Medical Conditions or Safety Concerns. Roll Left to Right (QC): 6 Sit to Lying (QC): 6 Sit to Stand (QC): 6 Chair/Fso-ag-Lztir Xfer(QC): 6 Car Transfer (QC): 4 Gait Training Does the Patient Walk?: Yes Distance: 150 x2 Walk 10 feet (QC): 6 Walk 50 ft with 2 Turns(QC): 4 Walk 150 ft (QC): 4 Walking 10ft/uneven surface-QC: 4 Gait Persons Needed: 1 Gait Assistive Device: FWW Wheelchair Training Does the Pt Use a Wheelchair?: No Wheel 50 ft with 2 turns (QC): 9 Wheel 150 ft (QC): 9 Type of Wheelchair: Manual Stair Training 1 Step (curb) (QC): 4 4 Steps (QC): 4 12 Steps (QC): 88 Balance Picking up an Object (QC): 6 ADL-Treatment Eating (QC): 6 (Pt reports feeding herself without assist) Oral Hygiene (QC): 6 (Pt reports completing oral care prior to transfer to FLU. States she brushed teeth while standing at sink without assist) Shower/Bathe Self (QC): 5 (Set up for sponge bath. Declined shower today secondary to fatigue) Upper Body Dressing (QC): 5 (Set up) Lower Body Dressing (QC): 3 (Pt required min assist to thread LE into underwear. Pt states she is having a little difficulty secondary to LE edema) On/Off Footwear (QC): 3 (Pt doffed socks. Able to don left sock with increased time. Pt requires assist to don right sock. Pt states she sometimes has diffulty with right sock secondary to back issues. Educated pt on use of sock aid. Pt then able to don with set up.) Toileting Hygiene (QC): 7 (Pt declined need to complete toileting at this time.) Toilet Transfer (QC): 5 Assessment/Plan Assessment and Plan Assess & Plan/Chief Complaint Assessment: Generalized weakness Fall risk Recent colon perforation AF OAC Anemia Plan: Monitor for falls IRF protocol Doing very well (1) Debility (2) History of hemicolectomy Status: Chronic (3) Paroxysmal A-fib Status: Chronic (4) History of colon cancer Status: Chronic (5) HTN (hypertension) Status: Chronic (6) Asthma Status: Chronic (7) Anemia (8) Dyspnea Status: Acute (9) Fatigue Status: Acute NICHELLE LR DO Feb 12, 2019 12:19 POS
[2019-02-12 17:19] VITALS: BP 151/78
[2019-02-12] MEDS: MONTELUKAST 10 MG (SINGULAIR) TAB PO SCH (20:18)
[2019-02-12] MEDS: MELATONIN 3 MG TABLET PO PRN (20:18)
[2019-02-13] MEDS: MULTIVIT W/MINERALS TAB (THERAGRAN M) PO SCH (05:52)
[2019-02-13 06:07] VITALS: BP 173/82
[2019-02-13 06:46] LABS: BASOPHILS % (AUTO) 0 % (0-10); EOSINOPHILS # (AUTO) 0.2 10^3/uL (0.0-0.3); EOSINOPHILS % (AUTO) 2 % (0-10); HEMATOCRIT 34 % (35-52); HEMOGLOBIN 11.1 G/DL (11.5-16.0); LYMPHOCYTES # (AUTO) 1.5 X 10^3 (1.0-4.0); LYMPHOCYTES % (AUTO) 14 % (12-44); MEAN CORPUSCULAR HEMOGLOBIN 30 PG (25-34); MEAN CORPUSCULAR HGB CONC 33 G/DL (32-36); MEAN CORPUSCULAR VOLUME 92 FL (80-99); MEAN PLATELET VOLUME 9.4 FL (7.4-10.4); MONOCYTES # (AUTO) 1.1 X 10^3 (0.0-1.0); MONOCYTES % (AUTO) 10 % (0-12); NEUTROPHILS # (AUTO) 8.3 X 10^3 (1.8-7.8); NEUTROPHILS % (AUTO) 75 % (42-75); PLATELET COUNT 308 10^3/uL (130-400); WHITE BLOOD COUNT 11.1 10^3/uL (4.3-11.0)
[2019-02-13 07:16] LABS: ALANINE AMINOTRANSFERASE < 6 U/L (0-55); ALBUMIN 3.1 GM/DL (3.2-4.5); ALKALINE PHOSPHATASE 44 U/L (40-136); BILIRUBIN,TOTAL 0.2 MG/DL (0.1-1.0); BUN/CREATININE RATIO 18; CALCIUM 8.5 MG/DL (8.5-10.1); CARBON DIOXIDE 27 MMOL/L (21-32); CHLORIDE 102 MMOL/L (98-107); CREATININE SERUM 0.96 MG/DL (0.60-1.30); GFR ESTIMATED 55; GLUCOSE 94 MG/DL (70-105); SODIUM 138 MMOL/L (135-145); TOTAL PROTEIN 5.6 GM/DL (6.4-8.2)
[2019-02-13] MEDS: CALCIUM CARB + VIT D 600 MG (CALCARB + D) TAB PO SCH (09:04)
[2019-02-13] MEDS: VITAMIN D3 1,000 UNITS (CHOLECALCIFEROL) TABLET PO SCH (09:04)
[2019-02-13] MEDS: metroNIDAZOLE 500 MG (FLAGYL) TAB PO SCH ×2 (09:04→20:32)
[2019-02-13] MEDS: ACETAMINOPHEN 500 MG TAB (TYLENOL) PO SCH ×2 (09:04→20:33)
[2019-02-13] MEDS: meTOprolol SUCCINATE 100 MG (TOPROL XL) TAB PO SCH (09:04)
[2019-02-13] MEDS: APIXABAN 2.5 MG (ELIQUIS) TABLET PO SCH ×2 (09:05→20:32)
--- NOTE | 2019-02-13 09:28 | Physical Therapy Daily Note ---
PT Daily Note-Current Subjective Pt. agrees to Rx and states she feels she has made great progress . Pain Location: No Pain Reported Mental Status Patient Orientation: Normal For Age Transfers SCALE: Activities may be completed with or without assistive devices. 3-Nttaapwcox-xwikbkk completes the activity by him/herself with no assistance from a helper. 5-Set-up or Clean-up Assistance-helper sets up or cleans up; patient completes activity. [place] assists only prior to or following the activity. 4-Supervision or Touching Assistance-helper provides verbal cues and/or touching/steadying and/or contact guard assistance as patient completes activity. Assistance may be provided throughout the activity or intermittently. 3-Partial/Moderate Assistance-helper does LESS THAN HALF the effort. [place] lifts, holds or supports trunk or limbs, but provides less than half the effort. 2-Substantial/Maximal Assistance-helper does MORE THAN HALF the effort. [place] lifts or holds trunk or limbs and provides more than half the effort. 4-Coxfrbpex-adkxmh does ALL the effort. Patient does none of the effort to complete the activity. Or, the assistance of 2 or more helpers is required for the patient to complete the activity. If activity was not attempted, code reason: 7-Patient Refused. 9-Not Applicable-not attempted and the patient did not perform the activity before the current illness, exacerbation or injury. 10-Not Attempted due to Environmental Limitations-(lack of equipment, weather restraints, etc.). 88-Not Attempted due to Medical Conditions or Safety Concerns. Roll Left & Right (QC): 6 Sit to Lying (QC): 6 Lying to Sitting/Side of Bed(Q: 6 Sit to Stand (QC): 6 Chair/Aax-dd-Qiofv Xfer(QC): 6 Toilet Transfer (QC): 6 Gait Training Does the Patient Walk?: Yes Walk 10 feet (QC): 6 Walk 50 ft with 2 Turns(QC): 6 Walk 150 ft (QC): 6 Gait Persons Needed: 0 Gait Assistive Device: FWW pt. up ad harsha and observed safe with good technique with FWW Stair Training Stair Training: Handrails/: 2 handrails #of Steps: 4 1 Step (curb) (QC): 5 4 Steps (QC): 5 Exercises Supine Ex: Bridging, Ankle pumps, Quad Set, Rolling, Glut sets, Heel Slides, Short Arc Quads, Scooting, Straight leg raise, Hip abd/add (sidelying) Supine Reps: 15 Seated Therapy Exercises: Ankle pumps, Sit to stand, Long arc quads Seated Reps: 12 Assessment Current Status: Good Progress up ad harsha about room and unit PT Custodial Goals Custodial Goals PT Credit Card Associate Goals Time Frame: Mar 03, 2019 Roll Left & Right (QC): 6 Sit to Lying (QC): 6 Lying-Sitting on Side/Bed(QC): 6 Sit to Stand (QC): 6 Chair/Anm-jy-Qwcmq Xfer(QC): 6 Toilet Transfer (QC): 6 Car Transfer (QC): 6 Does the Patient Walk: Yes Walk 10 feet (QC): 6 Walk 50ft with 2 Turns (QC): 6 Walk 150 ft (QC): 6 Walking 10ft on Uneven Surface: 6 1 Step (curb) (QC): 6 4 Steps (QC): 6 12 Steps (QC): 9 Picking up an Object (QC): 6 Does the Pt use WC or Scooter?: No Type: N/A Type: N/A PT Plan Treatment/Plan Treatment Plan: Continue Plan of Care Treatment Plan: Bed Mobility, Education, Functional Activity Shari, Functional Strength, Gait, Safety, Therapeutic Exercise, Transfers Treatment Duration: Mar 03, 2019 Frequency: At least 5 of 7 days/Wk (IRF) Estimated Hrs Per Day: 1.5 hours per day Patient and/or Family Agrees t: Yes Safety Risks/Education Patient Education: Gait Training, Transfer Techniques, Steps, Correct Positioning, Disease Process, Safety Issues Teaching Recipient: Patient Teaching Methods: Demonstration, Discussion Response to Teaching: Verbalize Understanding, Return Demonstration, Reinforcement Needed Time/GCodes Time In: 845 Time Out: 930 Total Billed Treatment Time: 45 Total Billed Treatment 1,GT15m,EX15,FA15 NICK CLAY UPSTAIRS MAID Feb 13, 2019 09:28 POS
[2019-02-13] MEDS: POLYETHYLENE GLYCOL 17 GM (MIRALAX) PACK PO SCH ×2 (09:48→20:34)
[2019-02-13] MEDS: SENNA W/DOCUSATE (SENOKOT S) TABLET PO SCH ×2 (09:48→20:34)
--- NOTE | 2019-02-13 09:50 | PM&R Progress Note ---
Subjective HPI/CC On Admission Date Seen by Provider: Feb 13, 2019 Time Seen by Provider: 08:30 Subjective/Events-last exam Overall much improved Elevated legs at night which has helped the edema White count 11 Wants to go home soon Check meds and labs Reviewed therapy notes Conferred with actuarial mathematician of Systems General: Fatigue Cardiovascular: Edema Objective Exam Vital Signs Vital Signs Date Time Temp Pulse Resp B/P (MAP) Pulse Ox O2 Delivery O2 Flow Rate FiO2 02/13/19 16:00 36.6 74 16 160/76 (104) 98 Room Air Capillary Refill : General Appearance: No Apparent Distress, WD/WN, Chronically ill, Obese HEENT: PERRL/EOMI, Normal ENT Inspection, Pharynx Normal Neck: Full Range of Motion, Normal Inspection, Non Tender, Supple, Carotid Bruit Respiratory: Chest Non Tender, Lungs Clear, Normal Breath Sounds, No Accessory Muscle Use, No Respiratory Distress Cardiovascular: Regular Rate, Rhythm, No Edema, No Gallop, No JVD, No Murmur, Normal Peripheral Pulses Gastrointestinal: Normal Bowel Sounds, No Organomegaly, No Pulsatile Mass, Non Tender, Soft Back: Normal Inspection, No CVA Tenderness, No Vertebral Tenderness Extremity: Normal Capillary Refill, Normal Inspection, Normal Range of Motion, Non Tender, No Calf Tenderness, Pedal Edema Neurologic/Psychiatric: Alert, Oriented x3, No Motor/Sensory Deficits (generalized weakness legs 4/5, fall risk when ambulating to gym), Normal Mood/Affect, order expediter II-XII Norm as Tested Skin: Normal Color, Warm/Dry Lymphatic: No Adenopathy Results/Procedures Lab Laboratory Tests 02/13/19 05:51 Patient resulted labs reviewed. FIM Transfers Therapy Code Descriptions/Definitions Functional [place] Measure: 0=Not Assessed/NA 4=Minimal Assistance 1=Total Assistance 5=Supervision or Setup 2=Maximal Assistance 6=Modified [place] 3=Moderate Assistance 7=Complete IndependenceSCALE: Activities may be completed with or without assistive devices. 1-Yvyxdiqjqj-nfjorki completes the activity by him/herself with no assistance from a helper. 5-Set-up or Clean-up Assistance-helper sets up or cleans up; patient completes activity. [place] assists only prior to or following the activity. 4-Supervision or Touching Assistance-helper provides verbal cues and/or touching/steadying and/or contact guard assistance as patient completes activity. Assistance may be provided throughout the activity or intermittently. 3-Partial/Moderate Assistance-helper does LESS THAN HALF the effort. [place] lifts, holds or supports trunk or limbs, but provides less than half the effort. 2-Substantial/Maximal Assistance-helper does MORE THAN HALF the effort. [place] lifts or holds trunk or limbs and provides more than half the effort. 9-Mufpswzgo-hxhftr does ALL the effort. Patient does none of the effort to complete the activity. Or, the assistance of 2 or more helpers is required for the patient to complete the activity. If activity was not attempted, code reason: 7-Patient Refused. 9-Not Applicable-not attempted and the patient did not perform the activity before the current illness, exacerbation or injury. 10-Not Attempted due to Environmental Limitations-(lack of equipment, weather restraints, etc.). 88-Not Attempted due to Medical Conditions or Safety Concerns. Roll Left to Right (QC): 6 Sit to Lying (QC): 6 Sit to Stand (QC): 6 Chair/Bcy-ov-Iisqu Xfer(QC): 6 Car Transfer (QC): 4 Gait Training Does the Patient Walk?: Yes Distance: 150 x2 Walk 10 feet (QC): 6 Walk 50 ft with 2 Turns(QC): 6 Walk 150 ft (QC): 6 Walking 10ft/uneven surface-QC: 4 Gait Persons Needed: 0 Gait Assistive Device: FWW Wheelchair Training Does the Pt Use a Wheelchair?: No Wheel 50 ft with 2 turns (QC): 9 Wheel 150 ft (QC): 9 Type of Wheelchair: Manual Stair Training Stair Training: Handrails/: 2 handrails #of Steps: 4 1 Step (curb) (QC): 5 4 Steps (QC): 5 12 Steps (QC): 88 Balance Picking up an Object (QC): 6 ADL-Treatment Eating (QC): 6 (Pt reports feeding herself without assist) Oral Hygiene (QC): 6 (Pt reports completing oral care prior to transfer to [facility]. States she brushed teeth while standing at sink without assist) Shower/Bathe Self (QC): 5 (Set up for sponge bath. Declined shower today secondary to fatigue) Upper Body Dressing (QC): 5 (Set up) Lower Body Dressing (QC): 3 (Pt required min assist to thread LE into underwear. Pt states she is having a little difficulty secondary to LE edema) On/Off Footwear (QC): 3 (Pt doffed socks. Able to don left sock with increased time. Pt requires assist to don right sock. Pt states she sometimes has diffulty with right sock secondary to back issues. Educated pt on use of sock aid. Pt then able to don with set up.) Toileting Hygiene (QC): 7 (Pt declined need to complete toileting at this time.) Toilet Transfer (QC): 5 Assessment/Plan Assessment and Plan Assess & Plan/Chief Complaint Assessment: Generalized weakness Fall risk Recent colon perforation AF OAC Anemia Edema Plan: Monitor for falls IRF protocol Doing very well Compression stockings (1) Debility (2) History of hemicolectomy Status: Chronic (3) Paroxysmal A-fib Status: Chronic (4) History of colon cancer Status: Chronic (5) HTN (hypertension) Status: Chronic (6) Asthma Status: Chronic (7) Anemia (8) Dyspnea Status: Acute (9) Fatigue Status: Acute NICHELLE LR DO Feb 13, 2019 09:50 POS
--- NOTE | 2019-02-13 10:50 | NUR ---
Pastoral care visit.
--- NOTE | 2019-02-13 10:52 | Progress Note ---
RUTH MORTENSEN,MED STUDENT 02/13/19 1052: Progress Note Patient feeling very well today and states she is feeling stronger. Lower extremity swelling much improved and she will continue to elevate her legs between therapy sessions. Denies any pain or shortness of breath. She is having regular bowel movements. OT and PT are going very well. She is hoping to go home this week. Barriers to going home at this time include recurrent lower extremity edema that makes ADLs difficult for her, and she has difficulty getting compression stockings on due to back pain. She may require walker at home to prevent falls. SHIREEN LR DO 02/13/192038: Supervisory-Addendum Brief Verification & Attestation Participated in pt care: history, MDM, physical Personally performed: exam, history, MDM, supervision of care Care discussed with: Medical Student Procedures: n/a Results interpretation: Verified all documentation Verification and Attestation of Medical Student E/M Service A medical student performed and documented this service in my presence. I reviewed and verified all information documented by the medical student and made modifications to such information, when appropriate. I personally performed the physical exam and medical decision making. Shireen Lr, Feb 13, 2019,20:39 RUTH MORTENSEN,MED STUDENT Feb 13, 2019 10:52 SHIREEN CRESPO DO Feb 13, 2019 20:39 POS
[2019-02-13] MEDS: LEVOFLOXACIN 250 MG TAB (LEVAQUIN) PO SCH (11:29)
--- NOTE | 2019-02-13 13:26 | NUR ---
"RD ASSESSMENT PMHx: afib; HTN; chronic diarrhea; diverticulosis; colon CA PT INTERACTION: Pt was awake and pleasant during nutrition assessment. Pt states current appetite is pretty good, but had been poor prior to admit. Note pt avg PO intake of >75% x3d, per chart review. Pt states following a regular diet at home and has no issues with chewing/swallowing food at this time. Pt states no recent issues with n/v/c/d at this time. Note last BM was 02/13 and pt currently on bowel regimen of miralax BID; senna BID; colace PRN; bisacodyl PRN, per chart review. Pt states no recent wt changes, except for fluid buildup. Note unable to determine recent wt hx, per chart review. ABNORMAL NUTRITION-RELATED LAB VALUES LOW: Pro 5.6; alb 3.0 HIGH: Est. kcal needs: 3696-7054 kcal | 20-25 kcal/kg Est. Pro needs: 66-83 g Pro | 0.8-1.0 g Pro/kg PES STATEMENT: Given pt's PO intake, no nutrition diagnosis at this time (NO-1.1) INTERVENTION: Continue with current diet order of Regular diet. Will continue to follow and reassess as pt needs and status change. MONITOR/EVALUATE: PO Intake; Plan of Care; Hydration Status; Weight Status; Lab Values Kenneth Alicia, , RD, LD"
--- NOTE | 2019-02-13 13:29 | Occupational Ther Daily Note ---
OT Current Status-Daily Note Subjective Pt alert, sitting in recliner. Pt agrees to therapy. No c/o pain. Mental Status/Objective Patient Orientation: Person, Place, Time, Situation Attachments: IV ADL-Treatment Pt states that she has already completed oral care and toileting. Pt is up ad harsha in room and completed all mod I. Pt agrees to sponge bath. Pt stood at sink to complete all areas except feet then sat to complete. Pt doffed/donned upper/lower body clothing by self, mod I. Assist given to don MEIR hose then pt donned L sock by self and used sock aide for R sock. Pt then ambulated to large shower room to look at walk-in tub. Ambulated to therapy gym to complete arm bike for 15 min at 15 lopez resistance to increase activity tolerance and strength for daily functional tasks. After therapy, pt sitting in recliner with call light/phone in reach. All needs met in room. Therapy Code Descriptions/Definitions Functional [place] Measure: 0=Not Assessed/NA 4=Minimal Assistance 1=Total Assistance 5=Supervision or Setup 2=Maximal Assistance 6=Modified [place] 3=Moderate Assistance 7=Complete IndependenceSCALE: Activities may be completed with or without assistive devices. 8-Dddddibxwc-fbppvzp completes the activity by him/herself with no assistance from a helper. 5-Set-up or Clean-up Assistance-helper sets up or cleans up; patient completes activity. [place] assists only prior to or following the activity. 4-Supervision or Touching Assistance-helper provides verbal cues and/or touching/steadying and/or contact guard assistance as patient completes activity. Assistance may be provided throughout the activity or intermittently. 3-Partial/Moderate Assistance-helper does LESS THAN HALF the effort. [place] lifts, holds or supports trunk or limbs, but provides less than half the effort. 2-Substantial/Maximal Assistance-helper does MORE THAN HALF the effort. [place] lifts or holds trunk or limbs and provides more than half the effort. 5-Siqfpbkgu-zyywji does ALL the effort. Patient does none of the effort to complete the activity. Or, the assistance of 2 or more helpers is required for the patient to complete the activity. If activity was not attempted, code reason: 7-Patient Refused. 9-Not Applicable-not attempted and the patient did not perform the activity before the current illness, exacerbation or injury. 10-Not Attempted due to Environmental Limitations-(lack of equipment, weather restraints, etc.). 88-Not Attempted due to Medical Conditions or Safety Concerns. Shower/Bathe Self (QC): 6 Upper Body Dressing (QC): 6 Lower Body Dressing (QC): 6 (Footwear (QC)4) OT Prison Goals Mailing Machine Assistant Goals Time Frame: Feb 24, 2019 Eating (QC): 6 Oral Hygiene (QC): 6 Toileting Hygiene (QC): 6 Shower/Bathe Self (QC): 6 Upper Body Dressing (QC): 6 Lower Body Dressing (QC): 6 On/Off Footwear (QC): 6 Additional Goals: 1-Demonstrate ADL Tasks, 2-Verbalize Understanding, 3- ImproveStrength/Shari 1=Demonstrate adherence to instructed precautions during ADL tasks. 2=Patient will verbalize/demonstrate understanding of assistive devices/modifications for ADL. 3=Patient will improve strength/tolerance for activity to enable patient to perform ADL's. OT Education/Plan Problem List/Assessment Assessment: Decreased Activ Tolerance, Decreased UE Strength Pt to benefit from skilled OT intervention for ADL training, transfers, strengthening, and home safety education to increase level of independence and allow safe discharge home. Discharge Recommendations Plan/Recommendations: Continue POC Treatment Plan/Plan of Care Patient would benefit from OT for education, treatment and training to promote independence in ADL's, mobility, safety and/or upper extremity function for ADL's. Plan of Care: ADL Retraining, Functional Mobility, Group Exercise/Act as Ind, UE Funct Exercise/Act Treatment Duration: Feb 24, 2019 Frequency: At least 5 of 7 days/Wk (IRF) Estimated Hrs Per Day: 1.5 hours per day Rehab Potential: Good Time/GCodes Start Time: 10:00 Stop Time: 11:00 Total Time Billed (hr/min): 60 Billed Treatment Time 1 visit-ADL 3 (45 min) EX 1 (15 min) RL CHARLES Feb 13, 2019 13:29 POS
--- NOTE | 2019-02-13 13:31 | Occupational Ther Daily Note ---
OT Current Status-Daily Note Subjective Pt alert, sitting in recliner. Pt agrees to therapy. No c/o pain at this time. Mental Status/Objective Patient Orientation: Person, Place, Time, Situation Attachments: IV ADL-Treatment Therapy Code Descriptions/Definitions Functional [place] Measure: 0=Not Assessed/NA 4=Minimal Assistance 1=Total Assistance 5=Supervision or Setup 2=Maximal Assistance 6=Modified [place] 3=Moderate Assistance 7=Complete IndependenceSCALE: Activities may be completed with or without assistive devices. 7-Hyyeydnqsx-xbpsqwe completes the activity by him/herself with no assistance from a helper. 5-Set-up or Clean-up Assistance-helper sets up or cleans up; patient completes activity. [place] assists only prior to or following the activity. 4-Supervision or Touching Assistance-helper provides verbal cues and/or touching/steadying and/or contact guard assistance as patient completes activity. Assistance may be provided throughout the activity or intermittently. 3-Partial/Moderate Assistance-helper does LESS THAN HALF the effort. [place] lifts, holds or supports trunk or limbs, but provides less than half the effort. 2-Substantial/Maximal Assistance-helper does MORE THAN HALF the effort. [place] lifts or holds trunk or limbs and provides more than half the effort. 6-Duaclfwqi-kfvzkq does ALL the effort. Patient does none of the effort to complete the activity. Or, the assistance of 2 or more helpers is required for the patient to complete the activity. If activity was not attempted, code reason: 7-Patient Refused. 9-Not Applicable-not attempted and the patient did not perform the activity before the current illness, exacerbation or injury. 10-Not Attempted due to Environmental Limitations-(lack of equipment, weather restraints, etc.). 88-Not Attempted due to Medical Conditions or Safety Concerns. Other Treatment Pt transported clothing to laundry room using FWW. Pt able to complete own laundry, mod I. Ambulated to therapy gym to complete UE exercises during dynamic standing tasks with 1# wt attached to wrist. Pt completed without LOB. After therapy, pt sitting in recliner with call light/phone in reach. All needs met in room. OT Battery Tester And Repairer Goals Battery Tester And Repairer Goals Time Frame: Feb 24, 2019 Eating (QC): 6 Oral Hygiene (QC): 6 Toileting Hygiene (QC): 6 Shower/Bathe Self (QC): 6 Upper Body Dressing (QC): 6 Lower Body Dressing (QC): 6 On/Off Footwear (QC): 6 Additional Goals: 1-Demonstrate ADL Tasks, 2-Verbalize Understanding, 3- ImproveStrength/Shari 1=Demonstrate adherence to instructed precautions during ADL tasks. 2=Patient will verbalize/demonstrate understanding of assistive devices/modifications for ADL. 3=Patient will improve strength/tolerance for activity to enable patient to perform ADL's. OT Education/Plan Problem List/Assessment Pt to benefit from skilled OT intervention for ADL training, transfers, strengthening, and home safety education to increase level of independence and allow safe discharge home. Discharge Recommendations Plan/Recommendations: Continue POC Treatment Plan/Plan of Care Patient would benefit from OT for education, treatment and training to promote independence in ADL's, mobility, safety and/or upper extremity function for ADL's. Plan of Care: ADL Retraining, Functional Mobility, Group Exercise/Act as Ind, UE Funct Exercise/Act Treatment Duration: Feb 24, 2019 Frequency: At least 5 of 7 days/Wk (IRF) Estimated Hrs Per Day: 1.5 hours per day Rehab Potential: Good Time/GCodes Start Time: 13:00 Stop Time: 13:30 Total Time Billed (hr/min): 30 Billed Treatment Time 1 visit-FA 1 (15 min) EX 1 (15 min) RL CHARLES Feb 13, 2019 13:31 POS
--- NOTE | 2019-02-13 14:25 | Physical Therapy Daily Note ---
PT Daily Note-Current Subjective Pt. agrees to Rx and states she is tired but notes much improved endurance and strength. Pt requests to stop in laundry for clothes in dryer Pain Location: No Pain Reported Mental Status Patient Orientation: Normal For Age Transfers SCALE: Activities may be completed with or without assistive devices. 4-Nieizrzdtd-ngufiad completes the activity by him/herself with no assistance from a helper. 5-Set-up or Clean-up Assistance-helper sets up or cleans up; patient completes activity. [place] assists only prior to or following the activity. 4-Supervision or Touching Assistance-helper provides verbal cues and/or touching/steadying and/or contact guard assistance as patient completes activity. Assistance may be provided throughout the activity or intermittently. 3-Partial/Moderate Assistance-helper does LESS THAN HALF the effort. [place] lifts, holds or supports trunk or limbs, but provides less than half the effort. 2-Substantial/Maximal Assistance-helper does MORE THAN HALF the effort. [place] lifts or holds trunk or limbs and provides more than half the effort. 4-Yptukbrhw-hagfow does ALL the effort. Patient does none of the effort to complete the activity. Or, the assistance of 2 or more helpers is required for the patient to complete the activity. If activity was not attempted, code reason: 7-Patient Refused. 9-Not Applicable-not attempted and the patient did not perform the activity before the current illness, exacerbation or injury. 10-Not Attempted due to Environmental Limitations-(lack of equipment, weather restraints, etc.). 88-Not Attempted due to Medical Conditions or Safety Concerns. all Indep Gait Training Does the Patient Walk?: Yes Gait Assistive Device: FWW up ad harsha status observed indep , no LOB or incident, safe habits Stair Training Stair Training: Handrails/: 2 handrails Stairs: Pattern: Reciprocal up down 4 steps SBA, good safe technique Exercises Standing: Hip Abduction, Hamstring curls, Heel/toe raises, Marching, Mini squats, Sit to Stand Standing Reps: 12 NuStep Minutes: 10 NuStep Workload: 2 Treatments Nustep leg presses x 15 Assessment Current Status: Good Progress PT Slabber Goals Slabber Goals PT Half-Way Goals Time Frame: Mar 03, 2019 Roll Left & Right (QC): 6 Sit to Lying (QC): 6 Lying-Sitting on Side/Bed(QC): 6 Sit to Stand (QC): 6 Chair/Onp-we-Hfkpo Xfer(QC): 6 Toilet Transfer (QC): 6 Car Transfer (QC): 6 Does the Patient Walk: Yes Walk 10 feet (QC): 6 Walk 50ft with 2 Turns (QC): 6 Walk 150 ft (QC): 6 Walking 10ft on Uneven Surface: 6 1 Step (curb) (QC): 6 4 Steps (QC): 6 12 Steps (QC): 9 Picking up an Object (QC): 6 Does the Pt use WC or Scooter?: No Type: N/A Type: N/A PT Plan Treatment/Plan Treatment Plan: Continue Plan of Care Treatment Plan: Bed Mobility, Education, Functional Activity Shari, Functional Strength, Gait, Safety, Therapeutic Exercise, Transfers Treatment Duration: Mar 03, 2019 Frequency: At least 5 of 7 days/Wk (IRF) Estimated Hrs Per Day: 1.5 hours per day Patient and/or Family Agrees t: Yes Safety Risks/Education Patient Education: Gait Training, Transfer Techniques, Steps Time/GCodes Time In: 1345 Time Out: 1430 Total Billed Treatment Time: 45 Total Billed Treatment 1,EX35m,FA10m NICK CLAY SALES PLANNER Feb 13, 2019 14:25 POS
[2019-02-13 16:00] VITALS: BP 160/76
--- NOTE | 2019-02-13 16:11 | NUR ---
Initial Assessment Visited with patient who admitted to ARU 02/10/19 for debility. She was an inpatient 02/02-02/06/19 for colon perforation repair, then returned 02/08/19 OBS with new/unresolved issues. Patient resides home alone and was IADL, even continuing to work 3 days per week at [employer] at age 83. She has one child, son Eddy Miramontes, here in [place]: [phone] or [phone] DME: Patient was not using any AD but does have a FWW. PCP: Dr. Eddy Max. INSURED: Medicare with [employer] supplement. HHC: Patient chose [facility] for post hospital care plan but then transitioned instead to ARU. Will clarify agency with patient if services recommended this stay. Weekly team conference introduced, patient indicated understanding. Continue intermittent review for progress relative to target discharge date.
[2019-02-13 20:00] VITALS: BP 152/69
[2019-02-13] MEDS: MONTELUKAST 10 MG (SINGULAIR) TAB PO SCH (20:33)
[2019-02-13] MEDS: MELATONIN 3 MG TABLET PO PRN (20:36)
--- NOTE | 2019-02-13 21:00 | NUR ---
LOWER LEG EDEMA IMPROVED, BUT FEET ARE 2-3+. MEIR HOSE REMOVED PER PATIENT REQUEST, BUT FEET ELEVATED ON PILLOW IN BED. ADMITTED TO HAVING PAIN IN FEET WHEN AMBULATING TODAY. NO PAIN OR OTHER COMPLAINTS.
--- NOTE | 2019-02-13 21:30 | NUR ---
NOT ON IV MEDICATIONS AND STATES IV UNCOMFORTABLE IN RIGHT AC. SALINE LOCK DC'D.
--- NOTE | 2019-02-13 23:45 | NUR ---
HAD BEEN MEDICATED WITH MELATONIN, BUT STATES UNABLE TO GET TO SLEEP. COMPLAINS OF KNOT IN BACK THAT IS PAINFUL. BACK RUB GIVEN AND MEDICATED WITH TYLENOL.
--- NOTE | 2019-02-14 01:20 | NUR ---
RECEIVED REPORT FROM PATRICIA ALEXANDRE. THIS RN TO ASSUME CARE OF PT AT THIS TIME.
[2019-02-14 05:57] VITALS: BP 159/83
[2019-02-14] MEDS: MULTIVIT W/MINERALS TAB (THERAGRAN M) PO SCH (06:06)
[2019-02-14] MEDS: CALCIUM CARB + VIT D 600 MG (CALCARB + D) TAB PO SCH (08:03)
[2019-02-14] MEDS: APIXABAN 2.5 MG (ELIQUIS) TABLET PO SCH ×2 (08:03→20:38)
[2019-02-14] MEDS: ACETAMINOPHEN 500 MG TAB (TYLENOL) PO SCH ×2 (08:03→20:38)
[2019-02-14] MEDS: VITAMIN D3 1,000 UNITS (CHOLECALCIFEROL) TABLET PO SCH (08:03)
[2019-02-14] MEDS: SENNA W/DOCUSATE (SENOKOT S) TABLET PO SCH ×2 (08:03→20:40)
[2019-02-14] MEDS: meTOprolol SUCCINATE 100 MG (TOPROL XL) TAB PO SCH (08:03)
[2019-02-14] MEDS: metroNIDAZOLE 500 MG (FLAGYL) TAB PO SCH (08:03)
[2019-02-14] MEDS: POLYETHYLENE GLYCOL 17 GM (MIRALAX) PACK PO SCH ×2 (08:04→20:40)
--- NOTE | 2019-02-14 09:57 | PM&R Progress Note ---
Subjective HPI/CC On Admission Date Seen by Provider: Feb 14, 2019 Time Seen by Provider: 08:30 Subjective/Events-last exam No significant issues. Lower extremity edema much improved. Pain in the back after PT. Took a bath today and soaked and that really helped her. Participating in all therapy. Check meds and labs Reviewed therapy notes Conferred with director of marketing operations of Systems General: Fatigue Cardiovascular: Edema Objective Exam Vital Signs Vital Signs Date Time Temp Pulse Resp B/P (MAP) Pulse Ox O2 Delivery O2 Flow Rate FiO2 02/14/19 20:40 Room Air 02/14/19 15:51 36.6 70 16 149/76 (100) 94 Capillary Refill : General Appearance: No Apparent Distress, WD/WN, Chronically ill, Obese HEENT: PERRL/EOMI, Normal ENT Inspection, Pharynx Normal Neck: Full Range of Motion, Normal Inspection, Non Tender, Supple, Carotid Bruit Respiratory: Chest Non Tender, Lungs Clear, Normal Breath Sounds, No Accessory Muscle Use, No Respiratory Distress Cardiovascular: Regular Rate, Rhythm, No Edema, No Gallop, No JVD, No Murmur, Normal Peripheral Pulses Gastrointestinal: Normal Bowel Sounds, No Organomegaly, No Pulsatile Mass, Non Tender, Soft Back: Normal Inspection, No CVA Tenderness, No Vertebral Tenderness Extremity: Normal Capillary Refill, Normal Inspection, Normal Range of Motion, Non Tender, No Calf Tenderness, Pedal Edema Neurologic/Psychiatric: Alert, Oriented x3, No Motor/Sensory Deficits (generalized weakness legs 4/5, fall risk when ambulating to gym), Normal Mood/Affect, planer mill grader II-XII Norm as Tested Skin: Normal Color, Warm/Dry Lymphatic: No Adenopathy Results/Procedures Lab Patient resulted labs reviewed. FIM Transfers Therapy Code Descriptions/Definitions Functional [place] Measure: 0=Not Assessed/NA 4=Minimal Assistance 1=Total Assistance 5=Supervision or Setup 2=Maximal Assistance 6=Modified [place] 3=Moderate Assistance 7=Complete IndependenceSCALE: Activities may be completed with or without assistive devices. 7-Tmymcfwwzv-tonpzsj completes the activity by him/herself with no assistance from a helper. 5-Set-up or Clean-up Assistance-helper sets up or cleans up; patient completes activity. [place] assists only prior to or following the activity. 4-Supervision or Touching Assistance-helper provides verbal cues and/or touching/steadying and/or contact guard assistance as patient completes activity. Assistance may be provided throughout the activity or intermittently. 3-Partial/Moderate Assistance-helper does LESS THAN HALF the effort. [place] lifts, holds or supports trunk or limbs, but provides less than half the effort. 2-Substantial/Maximal Assistance-helper does MORE THAN HALF the effort. [place] lifts or holds trunk or limbs and provides more than half the effort. 5-Hzdiqtvhk-bmtnri does ALL the effort. Patient does none of the effort to complete the activity. Or, the assistance of 2 or more helpers is required for the patient to complete the activity. If activity was not attempted, code reason: 7-Patient Refused. 9-Not Applicable-not attempted and the patient did not perform the activity before the current illness, exacerbation or injury. 10-Not Attempted due to Environmental Limitations-(lack of equipment, weather restraints, etc.). 88-Not Attempted due to Medical Conditions or Safety Concerns. Roll Left to Right (QC): 6 Sit to Lying (QC): 6 Sit to Stand (QC): 6 Chair/Diu-ty-Jyqwe Xfer(QC): 6 Car Transfer (QC): 4 Gait Training Does the Patient Walk?: Yes Distance: 150 x2 Walk 10 feet (QC): 6 Walk 50 ft with 2 Turns(QC): 6 Walk 150 ft (QC): 6 Walking 10ft/uneven surface-QC: 4 Gait Persons Needed: 0 Gait Assistive Device: FWW Wheelchair Training Does the Pt Use a Wheelchair?: No Wheel 50 ft with 2 turns (QC): 9 Wheel 150 ft (QC): 9 Type of Wheelchair: Manual Stair Training Stair Training: Handrails/: 2 handrails #of Steps: 4 1 Step (curb) (QC): 5 4 Steps (QC): 5 12 Steps (QC): 88 Stairs: Pattern: Reciprocal Balance Picking up an Object (QC): 6 ADL-Treatment Eating (QC): 6 (Pt reports feeding herself without assist) Oral Hygiene (QC): 6 (Pt reports completing oral care prior to transfer to ARU. States she brushed teeth while standing at sink without assist) Shower/Bathe Self (QC): 6 Upper Body Dressing (QC): 6 Lower Body Dressing (QC): 6 (Footwear (QC)4) On/Off Footwear (QC): 3 (Pt doffed socks. Able to don left sock with increased time. Pt requires assist to don right sock. Pt states she sometimes has diffulty with right sock secondary to back issues. Educated pt on use of sock aid. Pt then able to don with set up.) Toileting Hygiene (QC): 7 (Pt declined need to complete toileting at this time.) Toilet Transfer (QC): 5 Assessment/Plan Assessment and Plan Assess & Plan/Chief Complaint Assessment: Generalized weakness Fall risk Recent colon perforation AF OAC Anemia Edema Plan: Monitor for falls IRF protocol Doing very well Compression stockings Edema improved (1) Debility (2) History of hemicolectomy Status: Chronic (3) Paroxysmal A-fib Status: Chronic (4) History of colon cancer Status: Chronic (5) HTN (hypertension) Status: Chronic (6) Asthma Status: Chronic (7) Anemia (8) Dyspnea Status: Acute (9) Fatigue Status: Acute NICHELLE LR DO Feb 14, 2019 09:57 POS
--- NOTE | 2019-02-14 10:20 | Progress Note ---
RUTH MORTENSEN,MED STUDENT 02/14/19 1020: Progress Note Patient feeling well today. She reports a productive cough but states this is chronic. Her lower extremity swelling continues to improve. She is elevating her legs between therapy sessions. She had a sore muscle in her back following PT yesterday and was given Tylenol which helped. Denies any pain at this time. Her appetite is good and she is having regular bowel movements. OT and PT going well. SHIREEN LR DO 02/14/19 2100: Supervisory-Addendum Brief Verification & Attestation Participated in pt care: history, MDM, physical Personally performed: exam, history, MDM, supervision of care Care discussed with: Medical Student Procedures: n/a Results interpretation: Verified all documentation Verification and Attestation of Medical Student E/M Service A medical student performed and documented this service in my presence. I reviewed and verified all information documented by the medical student and made modifications to such information, when appropriate. I personally performed the physical exam and medical decision making. Shireen Lr, Feb 14, 2019,21:00 RUTH MORTENSEN,MED STUDENT Feb 14, 2019 10:20 SHIREEN CRESPO DO Feb 14, 2019 21:00 POS
--- NOTE | 2019-02-14 10:49 | Occupational Ther Daily Note ---
OT Current Status-Daily Note Subjective Pt sitting in chair, agrees to therapy. No reports of pain. ADL-Treatment Pt requests bath this morning. Sit to stand without assist. Gait to shower room with FWW, no LOB noted. Pt transferred into walk in tub using grab bar. Doffed clothing without assist. Pt able to bathe all areas without assist. Transfer to chair without assist. Pt donned pullover night gown without assist. Pt donned left sock without assist. Uses sock aid to don right sock. Pt returned to room and transferred to toilet without assist. Pt able to complete toileting ind ependently. Pt stood at sink to wash hands, complete oral care, and comb hair independently. Increased time taken for ADLs. Seated rest break taken after ADL tasks. Therapy Code Descriptions/Definitions Functional [place] Measure: 0=Not Assessed/NA 4=Minimal Assistance 1=Total Assistance 5=Supervision or Setup 2=Maximal Assistance 6=Modified [place] 3=Moderate Assistance 7=Complete IndependenceSCALE: Activities may be completed with or without assistive devices. 0-Slbbybnuaw-xeqxedn completes the activity by him/herself with no assistance from a helper. 5-Set-up or Clean-up Assistance-helper sets up or cleans up; patient completes activity. [place] assists only prior to or following the activity. 4-Supervision or Touching Assistance-helper provides verbal cues and/or tana akila/steadying and/or contact guard assistance as patient completes activity. Assistance may be provided throughout the activity or intermittently. 3-Partial/Moderate Assistance-helper does LESS THAN HALF the effort. [place] lifts, holds or supports trunk or limbs, but provides less than half the effort. 2-Substantial/Maximal Assistance-helper does MORE THAN HALF the effort. [place] lifts or holds trunk or limbs and provides more than half the effort. 6-Bpqubgvey-ctufwu does ALL the effort. Patient does none of the effort to complete the activity. Or, the assistance of 2 or more helpers is required for the patient to complete the activity. If activity was not attempted, code reason: 7-Patient Refused. 9-Not Applicable-not attempted and the patient did not perform the activity before the current illness, exacerbation or injury. 10-Not Attempted due to Environmental Limitations-(lack of equipment, weather restraints, etc.). 88-Not Attempted due to Medical Conditions or Safety Concerns. Oral Hygiene (QC): 6 Shower/Bathe Self (QC): 6 Upper Body Dressing (QC): 6 Footwear QC: 6 Other Treatment Gait to therapy gym with FWW, no LOB noted. Transfer to chair independently. Pt completed Arm bike [id number] to increase overall strength and activity tolerance needed for functional task completion. Pt completed task with minimal resistance and slow pace. One rest break taken. Pt returned to room, sitting in chair with needs met after session. OT Senior Living Goals Commercial Baking Teacher Goals Time Frame: Feb 24, 2019 Eating (QC): 6 Oral Hygiene (QC): 6 Toileting Hygiene (QC): 6 Shower/Bathe Self (QC): 6 Upper Body Dressing (QC): 6 Lower Body Dressing (QC): 6 On/Off Footwear (QC): 6 Additional Goals: 1-Demonstrate ADL Tasks, 2-Verbalize Understanding, 3- ImproveStrength/Shari 1=Demonstrate adherence to instructed precautions during ADL tasks. 2=Patient will verbalize/demonstrate understanding of assistive devices/modifications for ADL. 3=Patient will improve strength/tolerance for activity to enable patient to perform ADL's. OT Education/Plan Discharge Recommendations Plan/Recommendations: Continue POC Treatment Plan/Plan of Care Patient would benefit from OT for education, treatment and training to promote independence in ADL's, mobility, safety and/or upper extremity function for ADL's. Plan of Care: ADL Retraining, Functional Mobility, Group Exercise/Act as Ind, UE Funct Exercise/Act Treatment Duration: Feb 24, 2019 Frequency: At least 5 of 7 days/Wk (IRF) Estimated Hrs Per Day: 1.5 hours per day Rehab Potential: Good Time/GCodes Start Time: 08:00 Stop Time: 09:30 Total Time Billed (hr/min): 90 Billed Treatment Time 1 visit, ADLx5(70minutes), EX(20minutes) CHRIS THOMPSON OT Feb 14, 2019 10:49 POS
--- NOTE | 2019-02-14 11:33 | Physical Therapy Daily Note ---
PT Daily Note-Current Subjective Pt sitting in recliner upon arrival. Pt agrees to PT. Pain Location: No Pain Reported Mental Status Patient Orientation: Person, Place, Time, Situation Transfers SCALE: Activities may be completed with or without assistive devices. 2-Tvzkdlpjdf-jozdnkv completes the activity by him/herself with no assistance from a helper. 5-Set-up or Clean-up Assistance-helper sets up or cleans up; patient completes activity. [place] assists only prior to or following the activity. 4-Supervision or Touching Assistance-helper provides verbal cues and/or touching/steadying and/or contact guard assistance as patient completes activity. Assistance may be provided throughout the activity or intermittently. 3-Partial/Moderate Assistance-helper does LESS THAN HALF the effort. [place] lifts, holds or supports trunk or limbs, but provides less than half the effort. 2-Substantial/Maximal Assistance-helper does MORE THAN HALF the effort. [place] lifts or holds trunk or limbs and provides more than half the effort. 5-Jeojjmifq-rvybhc does ALL the effort. Patient does none of the effort to complete the activity. Or, the assistance of 2 or more helpers is required for the patient to complete the activity. If activity was not attempted, code reason: 7-Patient Refused. 9-Not Applicable-not attempted and the patient did not perform the activity bef ore the current illness, exacerbation or injury. 10-Not Attempted due to Environmental Limitations-(lack of equipment, weather r estraints, etc.). 88-Not Attempted due to Medical Conditions or Safety Concerns. Sit to Stand (QC): 5 Weight Bearing Full Weight Bearing Full Weight Bearing Gait Training Does the Patient Walk?: Yes Distance: 150' Walk 10 feet (QC): 5 Walk 50 ft with 2 Turns(QC): 5 Walk 150 ft (QC): 5 Gait Persons Needed: 1 Gait Assistive Device: FWW Pt walks with slow but steady celi. Wheelchair Training Does the Pt Use a Wheelchair?: No Exercises Seated Therapy Exercises: Ankle pumps, Long arc quads, Hip flexion, Kicking activity, Hip abd/add Seated Reps: 20 NuStep Minutes: 15 NuStep Workload: 5 Treatments Pt transfers from sitting to standing using FWW at [facility]. Pt uses restroom before leaving room for Rx, including completing pericare. Pt ambulates in hallway using FWW at S[facility]. Pt uses NuStep for 15m at WL 5. Pt completes Seated EX before returning to room. Pt resting in recliner at end of Rx. Pt has all ne eds met, including call light in hand. Assessment Current Status: Good Progress Pt tolerates Rx well. Pt expresses wanting to D/C by end of week. PT Glassware Verifier Goals [facility] Goals PT Glassware Verifier Goals Time Frame: Mar 03, 2019 Roll Left & Right (QC): 6 Sit to Lying (QC): 6 Lying-Sitting on Side/Bed(QC): 6 Sit to Stand (QC): 6 Chair/Lcb-zt-Mcfqq Xfer(QC): 6 Toilet Transfer (QC): 6 Car Transfer (QC): 6 Does the Patient Walk: Yes Walk 10 feet (QC): 6 Walk 50ft with 2 Turns (QC): 6 Walk 150 ft (QC): 6 Walking 10ft on Uneven Surface: 6 1 Step (curb) (QC): 6 4 Steps (QC): 6 12 Steps (QC): 9 Picking up an Object (QC): 6 Does the Pt use WC or Scooter?: No Type: N/A Type: N/A PT Plan Problem List Problem List: Activity Tolerance Treatment/Plan Treatment Plan: Continue Plan of Care Treatment Plan: Bed Mobility, Education, Functional Activity Shari, Functional Strength, Gait, Safety, Therapeutic Exercise, Transfers Treatment Duration: Mar 03, 2019 Frequency: At least 5 of 7 days/Wk (IRF) Estimated Hrs Per Day: 1.5 hours per day Patient and/or Family Agrees t: Yes Safety Risks/Education Patient Education: Gait Training, Correct Positioning, Safety Issues Teaching Recipient: Patient Teaching Methods: Discussion Response to Teaching: Verbalize Understanding Time/GCodes Time In: 945 Time Out: 1045 Total Billed Treatment Time: 60 Total Billed Treatment 1, GT (15m), FA (15m) & EX x2 (30m) RUTH MEDINA SENIOR ASSISTANT MANAGER Feb 14, 2019 11:33 POS
[2019-02-14] MEDS ORDERED: LEVOFLOXACIN 250 MG TAB (LEVAQUIN) ONE (13:28)
[2019-02-14] MEDS: LEVOFLOXACIN 250 MG TAB (LEVAQUIN) PO SCH (13:32)
--- NOTE | 2019-02-14 15:31 | Physical Therapy Daily Note ---
PT Daily Note-Current Subjective Pt sitting in recliner upon arrival. Pt agrees to PT. Pain Location: No Pain Reported Mental Status Patient Orientation: Person, Place, Time, Situation Transfers SCALE: Activities may be completed with or without assistive devices. 1-Vspliibxmv-zziclti completes the activity by him/herself with no assistance from a helper. 5-Set-up or Clean-up Assistance-helper sets up or cleans up; patient completes activity. [place] assists only prior to or following the activity. 4-Supervision or Touching Assistance-helper provides verbal cues and/or touching/steadying and/or contact guard assistance as patient completes activity. Assistance may be provided throughout the activity or intermittently. 3-Partial/Moderate Assistance-helper does LESS THAN HALF the effort. [place] lifts, holds or supports trunk or limbs, but provides less than half the effort. 2-Substantial/Maximal Assistance-helper does MORE THAN HALF the effort. [place] lifts or holds trunk or limbs and provides more than half the effort. 7-Hymgfqwhw-itdynb does ALL the effort. Patient does none of the effort to complete the activity. Or, the assistance of 2 or more helpers is required for the patient to complete the activity. If activity was not attempted, code reason: 7-Patient Refused. 9-Not Applicable-not attempted and the patient did not perform the activity bef ore the current illness, exacerbation or injury. 10-Not Attempted due to Environmental Limitations-(lack of equipment, weather r estraints, etc.). 88-Not Attempted due to Medical Conditions or Safety Concerns. Sit to Stand (QC): 5 Toilet Transfer (QC): 5 Car Transfer (QC): 5 Weight Bearing Full Weight Bearing Full Weight Bearing Gait Training Does the Patient Walk?: Yes Distance: 200' Walk 10 feet (QC): 5 Walk 50 ft with 2 Turns(QC): 5 Walk 150 ft (QC): 5 Gait Persons Needed: 1 Gait Assistive Device: FWW Wheelchair Training Does the Pt Use a Wheelchair?: No Stair Training Stair Training: Handrails/: 2 handrails #of Steps: 4 1 Step (curb) (QC): 5 4 Steps (QC): 5 Stairs: Pattern: Step to Treatments Pt transfers from sitting to standing. Pt uses restroom then ambulates in hallway using FWW. Pt completes car transfer with VC. Pt then completes 1 set of 4 steps using handrails before returning to room to rest. Pt has all needs met, including call light in hand. Assessment Current Status: Good Progress Pt has requested D/C later this week. Pt needs occasional VC for safety. PT [facility] Goals [facility] Goals PT Pump Erector Goals Time Frame: Mar 03, 2019 Roll Left & Right (QC): 6 Sit to Lying (QC): 6 Lying-Sitting on Side/Bed(QC): 6 Sit to Stand (QC): 6 Chair/Ruo-sl-Ogbet Xfer(QC): 6 Toilet Transfer (QC): 6 Car Transfer (QC): 6 Does the Patient Walk: Yes Walk 10 feet (QC): 6 Walk 50ft with 2 Turns (QC): 6 Walk 150 ft (QC): 6 Walking 10ft on Uneven Surface: 6 1 Step (curb) (QC): 6 4 Steps (QC): 6 12 Steps (QC): 9 Picking up an Object (QC): 6 Does the Pt use WC or Scooter?: No Type: N/A Type: N/A PT Plan Problem List Problem List: Activity Tolerance, Safety Treatment/Plan Treatment Plan: Continue Plan of Care Treatment Plan: Bed Mobility, Education, Functional Activity Shari, Functional Strength, Gait, Safety, Therapeutic Exercise, Transfers Treatment Duration: Mar 03, 2019 Frequency: At least 5 of 7 days/Wk (IRF) Estimated Hrs Per Day: 1.5 hours per day Patient and/or Family Agrees t: Yes Safety Risks/Education Patient Education: Gait Training, Transfer Techniques, Steps, Correct Positioning, Safety Issues Teaching Recipient: Patient Teaching Methods: Discussion Response to Teaching: Verbalize Understanding Time/GCodes Time In: 1400 Time Out: 1430 Total Billed Treatment Time: 30 Total Billed Treatment 1, GT (10m) & FA (20m) RUTH MEDINA ETHYL BLENDER Feb 14, 2019 15:31 POS
[2019-02-14 15:51] VITALS: BP 149/76
--- NOTE | 2019-02-14 19:05 | NUR ---
bedside report received from AARON GOMEZ, assume care of pt
[2019-02-14] MEDS: MONTELUKAST 10 MG (SINGULAIR) TAB PO SCH (20:38)
[2019-02-14] MEDS: MELATONIN 3 MG TABLET PO PRN (20:38)
--- NOTE | 2019-02-14 20:38 | NUR ---
pt refused miralax & Senokot, took scheduled Tylenol 500mg, rates pain level 0/10 on numeric scale
--- NOTE | 2019-02-14 21:15 | NUR ---
rates pain level 0/10 on numeric scale
[2019-02-15 05:08] VITALS: BP 169/76
[2019-02-15] MEDS: MULTIVIT W/MINERALS TAB (THERAGRAN M) PO SCH (06:35)
--- NOTE | 2019-02-15 07:08 | NUR ---
bedside report given to ADALI GOMEZ
[2019-02-15] MEDS: APIXABAN 2.5 MG (ELIQUIS) TABLET PO SCH ×2 (08:04→20:22)
[2019-02-15] MEDS: VITAMIN D3 1,000 UNITS (CHOLECALCIFEROL) TABLET PO SCH (08:04)
[2019-02-15] MEDS: ACETAMINOPHEN 500 MG TAB (TYLENOL) PO SCH ×2 (08:05→20:23)
[2019-02-15] MEDS: CALCIUM CARB + VIT D 600 MG (CALCARB + D) TAB PO SCH (08:05)
[2019-02-15] MEDS: meTOprolol SUCCINATE 100 MG (TOPROL XL) TAB PO SCH (08:05)
[2019-02-15] MEDS: SENNA W/DOCUSATE (SENOKOT S) TABLET PO SCH ×2 (08:05→20:15)
[2019-02-15] MEDS: POLYETHYLENE GLYCOL 17 GM (MIRALAX) PACK PO SCH ×2 (09:49→19:55)
--- NOTE | 2019-02-15 09:56 | PM&R Progress Note ---
Subjective HPI/CC On Admission Date Seen by Provider: Feb 15, 2019 Time Seen by Provider: 08:45 Subjective/Events-last exam Pt wants to go home tomorrow Performed and in and out cath because the pt did have dysuria but that was negative Bowels moved yesterday Overall doing well and will DC tomorrow Check meds and labs Reviewed therapy notes Conferred with second butler of Systems General: Fatigue Cardiovascular: Edema Objective Exam Vital Signs Vital Signs Date Time Temp Pulse Resp B/P (MAP) Pulse Ox O2 Delivery O2 Flow Rate FiO2 02/15/19 17:37 36.3 80 18 127/74 (91) 96 Room Air Capillary Refill : General Appearance: No Apparent Distress, WD/WN, Chronically ill, Obese HEENT: PERRL/EOMI, Normal ENT Inspection, Pharynx Normal Neck: Full Range of Motion, Normal Inspection, Non Tender, Supple, Carotid Bruit Respiratory: Chest Non Tender, Lungs Clear, Normal Breath Sounds, No Accessory Muscle Use, No Respiratory Distress Cardiovascular: Regular Rate, Rhythm, No Edema, No Gallop, No JVD, No Murmur, Normal Peripheral Pulses Gastrointestinal: Normal Bowel Sounds, No Organomegaly, No Pulsatile Mass, Non Tender, Soft Back: Normal Inspection, No CVA Tenderness, No Vertebral Tenderness Extremity: Normal Capillary Refill, Normal Inspection, Normal Range of Motion, Non Tender, No Calf Tenderness, Pedal Edema Neurologic/Psychiatric: Alert, Oriented x3, No Motor/Sensory Deficits (generalized weakness legs 4/5, fall risk when ambulating to gym), Normal Mood/Affect, order picker/assembler II-XII Norm as Tested Skin: Normal Color, Warm/Dry Lymphatic: No Adenopathy Results/Procedures Lab Patient resulted labs reviewed. FIM Transfers Therapy Code Descriptions/Definitions Functional [place] Measure: 0=Not Assessed/NA 4=Minimal Assistance 1=Total Assistance 5=Supervision or Setup 2=Maximal Assistance 6=Modified [place] 3=Moderate Assistance 7=Complete IndependenceSCALE: Activities may be completed with or without assistive devices. 8-Jxguiabhjb-ajzuyke completes the activity by him/herself with no assistance from a helper. 5-Set-up or Clean-up Assistance-helper sets up or cleans up; patient completes activity. [place] assists only prior to or following the activity. 4-Supervision or Touching Assistance-helper provides verbal cues and/or touching/steadying and/or contact guard assistance as patient completes acti vity. Assistance may be provided throughout the activity or intermittently. 3-Partial/Moderate Assistance-helper does LESS THAN HALF the effort. [place] lifts, holds or supports trunk or limbs, but provides less than half the effort. 2-Substantial/Maximal Assistance-helper does MORE THAN HALF the effort. [place] lifts or holds trunk or limbs and provides more than half the effort. 6-Gqvojpfdh-heihqj does ALL the effort. Patient does none of the effort to complete the activity. Or, the assistance of 2 or more helpers is required for the patient to complete the activity. If activity was not attempted, code reason: 7-Patient Refused. 9-Not Applicable-not attempted and the patient did not perform the activity before the current illness, exacerbation or injury. 10-Not Attempted due to Environmental Limitations-(lack of equipment, weather restraints, etc.). 88-Not Attempted due to Medical Conditions or Safety Concerns. Roll Left to Right (QC): 6 Sit to Lying (QC): 6 Sit to Stand (QC): 5 Chair/Jzr-dk-Sehdp Xfer(QC): 6 Car Transfer (QC): 5 Gait Training Does the Patient Walk?: Yes Distance: 200' Walk 10 feet (QC): 5 Walk 50 ft with 2 Turns(QC): 5 Walk 150 ft (QC): 5 Walking 10ft/uneven surface-QC: 4 Gait Persons Needed: 1 Gait Assistive Device: FWW Wheelchair Training Does the Pt Use a Wheelchair?: No Wheel 50 ft with 2 turns (QC): 9 Wheel 150 ft (QC): 9 Stair Training Stair Training: Handrails/: 2 handrails #of Steps: 4 1 Step (curb) (QC): 5 4 Steps (QC): 5 12 Steps (QC): 88 Stairs: Pattern: Step to Balance Picking up an Object (QC): 6 ADL-Treatment Eating (QC): 6 (Pt reports feeding herself without assist) Oral Hygiene (QC): 6 Shower/Bathe Self (QC): 6 Upper Body Dressing (QC): 6 Lower Body Dressing (QC): 6 (Footwear (QC)4) On/Off Footwear (QC): 3 (Pt doffed socks. Able to don left sock with increased time. Pt requires assist to don right sock. Pt states she sometimes has diffulty with right sock secondary to back issues. Educated pt on use of sock aid. Pt then able to don with set up.) Toileting Hygiene (QC): 7 (Pt declined need to complete toileting at this time.) Toilet Transfer (QC): 5 Assessment/Plan Assessment and Plan Assess & Plan/Chief Complaint Assessment: Generalized weakness Fall risk Recent colon perforation AF OAC Anemia Edema Plan: Monitor for falls IRF protocol Doing very well Compression stockings Edema improved Repeat UA negative (1) Debility (2) History of hemicolectomy Status: Chronic (3) Paroxysmal A-fib Status: Chronic (4) History of colon cancer Status: Chronic (5) HTN (hypertension) Status: Chronic (6) Asthma Status: Chronic (7) Anemia (8) Dyspnea Status: Acute (9) Fatigue Status: Acute NICHELLE LR DO Feb 15, 2019 09:55 POS
--- NOTE | 2019-02-15 10:21 | Occupational Ther Daily Note ---
OT Current Status-Daily Note Subjective Pt agreeable to treatment. No c/o pain. ADL-Treatment Pt declined bathing this morning, states she already "cleaned up". Pt is already dressed. Pt states she completed oral care without assist. Pt requires assist to don MEIR hose, then dons left sock without assist. Uses sock aid to don right sock. Pt transferred to toilet without assist. Pt able to complete toileting hygiene and clothing management. Stood at sink to wash hands without assist. Therapy Code Descriptions/Definitions Functional [place] Measure: 0=Not Assessed/NA 4=Minimal Assistance 1=Total Assistance 5=Supervision or Setup 2=Maximal Assistance 6=Modified [place] 3=Moderate Assistance 7=Complete IndependenceSCALE: Activities may be completed with or without assistive devices. 7-Geeublcllc-hiomsiu completes the activity by him/herself with no assistance from a helper. 5-Set-up or Clean-up Assistance-helper sets up or cleans up; patient completes activity. [place] assists only prior to or following the activity. 4-Supervision or Touching Assistance-helper provides verbal cues and/or touching/steadying and/or contact guard assistance as patient completes activity. Assistance may be provided throughout the activity or intermittently. 3-Partial/Moderate Assistance-helper does LESS THAN HALF the effort. [place] lifts, holds or supports trunk or limbs, but provides less than half the effort. 2-Substantial/Maximal Assistance-helper does MORE THAN HALF the effort. [place] lifts or holds trunk or limbs and provides more than half the effort. 6-Phnhygtof-owccyx does ALL the effort. Patient does none of the effort to complete the activity. Or, the assistance of 2 or more helpers is required for the patient to complete the activity. If activity was not attempted, code reason: 7-Patient Refused. 9-Not Applicable-not attempted and the patient did not perform the activity before the current illness, exacerbation or injury. 10-Not Attempted due to Environmental Limitations-(lack of equipment, weather restraints, etc.). 88-Not Attempted due to Medical Conditions or Safety Concerns. Eating (QC): 6 (per pt report) Oral Hygiene (QC): 6 (per pt report) Toileting Hygiene (QC): 6 Toilet Transfer (QC): 6 Other Treatment Gait to therapy gym with FWW, no LOB noted. Pt completed resistance pegs activity with bilateral UE with 1# weights in place to increase strength and coordination skills. Pt completed task with increased time. Arm bike [id number] to increase overall strength and activity tolerance needed for functional task completion. Pt performed task with minimal resistance and slow pace. No rest breaks needed until after completion of activity. Pt completed standing otto bag toss to increase activity tolerance and balance. Pt did not have any LOB during activity. Pt returned to room, sitting in chair with needs met after session. OT Carpenter Helper Goals Carpenter Helper Goals Time Frame: Feb 24, 2019 Eating (QC): 6 Oral Hygiene (QC): 6 Toileting Hygiene (QC): 6 Shower/Bathe Self (QC): 6 Upper Body Dressing (QC): 6 Lower Body Dressing (QC): 6 On/Off Footwear (QC): 6 Additional Goals: 1-Demonstrate ADL Tasks, 2-Verbalize Understanding, 3- ImproveStrength/Shari 1=Demonstrate adherence to instructed precautions during ADL tasks. 2=Patient will verbalize/demonstrate understanding of assistive devices/mod ifications for ADL. 3=Patient will improve strength/tolerance for activity to enable patient to perform ADL's. OT Education/Plan Discharge Recommendations Plan/Recommendations: Continue POC Treatment Plan/Plan of Care Patient would benefit from OT for education, treatment and training to promote independence in ADL's, mobility, safety and/or upper extremity function for ADL's. Plan of Care: ADL Retraining, Functional Mobility, Group Exercise/Act as Ind, UE Funct Exercise/Act Treatment Duration: Feb 24, 2019 Frequency: At least 5 of 7 days/Wk (IRF) Estimated Hrs Per Day: 1.5 hours per day Rehab Potential: Good Time/GCodes Start Time: 08:00 Stop Time: 09:00 Total Time Billed (hr/min): 60 Billed Treatment Time 1 visit, ADL(15minutes), EXx2(30minutes), FA(15minutes) CHRIS THOMPSON OT Feb 15, 2019 10:21 POS
--- NOTE | 2019-02-15 10:30 | NUR ---
straight cath for U/A ordered, collected without issue, sent to lab for analysis. Pt tolerates procedure well.
--- NOTE | 2019-02-15 10:51 | Physical Therapy Daily Note ---
PT Daily Note-Current Subjective Pt sitting in recliner upon arrival. Pt agrees to PT, wants to QC for possible D/C over the next few days. Pain Location: No Pain Reported Mental Status Patient Orientation: Person, Place, Time, Situation Transfers SCALE: Activities may be completed with or without assistive devices. 7-Ysrcchmjxr-clexdvs completes the activity by him/herself with no assistance from a helper. 5-Set-up or Clean-up Assistance-helper sets up or cleans up; patient completes activity. [place] assists only prior to or following the activity. 4-Supervision or Touching Assistance-helper provides verbal cues and/or touching/steadying and/or contact guard assistance as patient completes activity. Assistance may be provided throughout the activity or intermittently. 3-Partial/Moderate Assistance-helper does LESS THAN HALF the effort. [place] lifts, holds or supports trunk or limbs, but provides less than half the effort. 2-Substantial/Maximal Assistance-helper does MORE THAN HALF the effort. [place] lifts or holds trunk or limbs and provides more than half the effort. 1-Bzwlyqtyd-dmgdgg does ALL the effort. Patient does none of the effort to complete the activity. Or, the assistance of 2 or more helpers is required for the patient to complete the activity. If activity was not attempted, code reason: 7-Patient Refused. 9-Not Applicable-not attempted and the patient did not perform the activity before the current illness, exacerbation or injury. 10-Not Attempted due to Environmental Limitations-(lack of equipment, weather restraints, etc.). 88-Not Attempted due to Medical Conditions or Safety Concerns. Roll Left & Right (QC): 6 Sit to Lying (QC): 6 Lying to Sitting/Side of Bed(Q: 6 Sit to Stand (QC): 6 Chair/Txa-uy-Qlqrh Xfer(QC): 6 Toilet Transfer (QC): 6 Car Transfer (QC): 6 Weight Bearing Full Weight Bearing Full Weight Bearing Gait Training Does the Patient Walk?: Yes Distance: 250' Walk 10 feet (QC): 6 Walk 50 ft with 2 Turns(QC): 6 Walk 150 ft (QC): 6 Walking 10ft/uneven surface-QC: 6 Gait Persons Needed: 1 Gait Assistive Device: FWW Wheelchair Training Does the Pt Use a Wheelchair?: No Stair Training Stair Training: Handrails/: 2 handrails #of Steps: 12 1 Step (curb) (QC): 6 4 Steps (QC): 6 12 Steps (QC): 6 Stairs: Pattern: Step to Balance Picking up an Object (QC): 6 Exercises NuStep Minutes: 15 NuStep Workload: 5 Treatments Pt transfers from bed to EOB to Standing. Pt uses restroom before leaving room for Rx. Pt ambulates in hallway using FWW. Pt uses NuStep for 15m at WL 5. Pt completes QC scoring items listed above before returning to room to rest in recliner. Pt has all needs met, including call light in hand. Assessment Current Status: Good Progress Pt tolerates Rx well and is anxious to D/C [facility]. PT Jail Goals Jail Goals PT Jail Goals Time Frame: Mar 03, 2019 Roll Left & Right (QC): 6 Sit to Lying (QC): 6 Lying-Sitting on Side/Bed(QC): 6 Sit to Stand (QC): 6 Chair/Oep-qp-Bpiwd Xfer(QC): 6 Toilet Transfer (QC): 6 Car Transfer (QC): 6 Does the Patient Walk: Yes Walk 10 feet (QC): 6 Walk 50ft with 2 Turns (QC): 6 Walk 150 ft (QC): 6 Walking 10ft on Uneven Surface: 6 1 Step (curb) (QC): 6 4 Steps (QC): 6 12 Steps (QC): 9 Picking up an Object (QC): 6 Does the Pt use WC or Scooter?: No Type: N/A Type: N/A PT Plan Problem List Problem List: Activity Tolerance Treatment/Plan Treatment Plan: Continue Plan of Care Treatment Plan: Bed Mobility, Education, Functional Activity Shari, Functional Strength, Gait, Safety, Therapeutic Exercise, Transfers Treatment Duration: Mar 03, 2019 Frequency: At least 5 of 7 days/Wk (IRF) Estimated Hrs Per Day: 1.5 hours per day Patient and/or Family Agrees t: Yes Safety Risks/Education Patient Education: Gait Training, Transfer Techniques, Correct Positioning, Safety Issues Teaching Recipient: Patient Teaching Methods: Discussion Response to Teaching: Verbalize Understanding Time/GCodes Time In: 945 Time Out: 1045 Total Billed Treatment Time: 60 Total Billed Treatment 1, GT (15m), FA x2 (30m) & EX (15m) RUTH MEDINA INTERNAL AUDIT DIRECTOR Feb 15, 2019 10:51 POS
[2019-02-15 11:48] LABS: BILIRUBIN,URINE NEGATIVE (NEGATIVE); CLARITY,URINE CLEAR; COLOR,URINE YELLOW; GLUCOSE, URINE (UA) NEGATIVE (NEGATIVE); KETONES,URINE NEGATIVE (NEGATIVE); LEUKOCYTE ESTERASE ,URINE NEGATIVE (NEGATIVE); NITRITE,URINE NEGATIVE (NEGATIVE); PH,URINE 7.5 (5-9); PROTEIN,URINE NEGATIVE (NEGATIVE)
[2019-02-15 11:54] LABS: BACTERIA,URINE NEGATIVE /HPF; RBC,URINE RARE /HPF; WBC,URINE RARE /HPF
[2019-02-15] MEDS ORDERED: PHENAZOPYRIDINE 100 MG (PYRIDIUM) TABLET PO PRN (12:00)
--- NOTE | 2019-02-15 14:00 | NUR ---
Weekly Team Conference Met with patient to confirm her discharge for 02/16/19. Patient had requested and physician/ARU team agreed to set that as her target date to leave. Patient's son will be staying with her for a period of time, patient indicates she does not feel she needs [facility] services. She does have history of employment 3 days weekly and intends to return when medically released to do so. No other discharge interventions required unless situation changes to warrant.
--- NOTE | 2019-02-15 14:01 | Progress Note ---
RUTH MORTENSEN,MED STUDENT 02/15/19 1401: Progress Note Patient complained this morning of dysuria and urinary frequency. Straight cath was done and UA was negative. She is overall feeling better and is wanting to go home soon. She states that her son will stay with her for awhile upon discharge to help her out at home. PT and OT are pleased with her progress and independence in most ADLs at this time. She does not require home health at this time. Goal discharge date: 02/16/19 SHIREEN LR DO 02/15/192108: Supervisory-Addendum Brief Verification & Attestation Participated in pt care: history, MDM, physical Personally performed: exam, history, MDM, supervision of care Care discussed with: Medical Student Procedures: n/a Results interpretation: Verified all documentation Verification and Attestation of Medical Student E/M Service A medical student performed and documented this service in my presence. I reviewed and verified all information documented by the medical student and made modifications to such information, when appropriate. I personally performed the physical exam and medical decision making. Shireen Lr, Feb 15, 2019,21:09 RUTH MORTENSEN,MED STUDENT Feb 15, 2019 14:01 SHIREEN CRESPO DO Feb 15, 2019 21:09 POS
--- NOTE | 2019-02-15 15:06 | Therapy Group Daily Note ---
Therapy Daily Group Note Patient Education Topic Other List Below (Transfers) Exercises LE Seated Exercise, UE Exercise Session Ratio (pt:therapist): 4:1 Goal of Session: UE/LE Strengthing, Safety with Transfers Goal Met for this Session: Yes Pt Benefit of Group: Contributions to Others, F/U Use of Strategies @Home, Increased Functional Safety, Increased Functional Strength, Improved Cognition, Recognition of Peers, Socialization Other/Notes Pt ambulated using FWW to [facility] for OT/PT group. Group consisted of introductions (name, place living, [place] memory), socialization, pt led UE/LE seated exercises and education for safe transfers. Pt introduced self appropriately and actively listened to peers. Pt able to read exercise card and lead peers in one exercise then was able to complete other exercises. Pt acknowledged understanding of safe transfers utilizing AE for bathroom, automobile and chairs by contributing ideas and own experiences. After therapy, pt lying in bed with call light/phone in reach. All needs met in room. Start Time: 13:00 Stop Time: 14:15 Total Billed Treatment Time: 75 Total Billed Treatment 1, GRP (75m) RUTH MEDINA ER MANAGER Feb 15, 2019 15:06 POS
[2019-02-15 17:37] VITALS: BP 127/74
[2019-02-15] MEDS: MONTELUKAST 10 MG (SINGULAIR) TAB PO SCH (20:22)
[2019-02-15] MEDS: MELATONIN 3 MG TABLET PO PRN (20:22)
[2019-02-16] MEDS: MULTIVIT W/MINERALS TAB (THERAGRAN M) PO SCH (05:40)
[2019-02-16 06:14] VITALS: BP 152/82
--- NOTE | 2019-02-16 07:28 | Occupational Ther Daily Note ---
OT Current Status-Daily Note Subjective Pt alert, sitting in recliner. Pt agrees to therapy. No c/o pain. Pt to discharge today. Mental Status/Objective Patient Orientation: Person, Place, Time, Situation ADL-Treatment Pt declined shower stating that she only takes sponge bathes at home. After therapy, pt sitting in recliner with call light/phone in reach. All needs met in room. Therapy Code Descriptions/Definitions Functional [place] Measure: 0=Not Assessed/NA 4=Minimal Assistance 1=Total Assistance 5=Supervision or Setup 2=Maximal Assistance 6=Modified [place] 3=Moderate Assistance 7=Complete IndependenceSCALE: Activities may be completed with or without assistive devices. 6-Zruonuvkvt-qbsriox completes the activity by him/herself with no assistance from a helper. 5-Set-up or Clean-up Assistance-helper sets up or cleans up; patient completes activity. [place] assists only prior to or following the activity. 4-Supervision or Touching Assistance-helper provides verbal cues and/or touching/steadying and/or contact guard assistance as patient completes acti vity. Assistance may be provided throughout the activity or intermittently. 3-Partial/Moderate Assistance-helper does LESS THAN HALF the effort. [place] lifts, holds or supports trunk or limbs, but provides less than half the effort. 2-Substantial/Maximal Assistance-helper does MORE THAN HALF the effort. [place] lifts or holds trunk or limbs and provides more than half the effort. 7-Krbewcyks-ovduea does ALL the effort. Patient does none of the effort to complete the activity. Or, the assistance of 2 or more helpers is required for the patient to complete the activity. If activity was not attempted, code reason: 7-Patient Refused. 9-Not Applicable-not attempted and the patient did not perform the activity before the current illness, exacerbation or injury. 10-Not Attempted due to Environmental Limitations-(lack of equipment, weather restraints, etc.). 88-Not Attempted due to Medical Conditions or Safety Concerns. Eating (QC): 6 (Pt able to set up own meal and use regular utensils.) Oral Hygiene (QC): 6 (Standing at sink, pt able to complete independently using FWW.) Bathing Location: L Arm, R Arm, L Upper Leg, R Upper Leg, L Lower Leg (including foot), R Lower Leg (including foot), Chest, Abdomen, Buttocks, Perineal Area Shower/Bathe Self (QC): 6 (Standing at sink using FWW and counter for stability, pt is able to complete own sponge bath.) Upper Body Dressing (QC): 6 (Retrieves clothing with FWW and dons/doffs by self.) Lower Body Dressing (QC): 6 (Pt retrieves own clothing using FWW and dons/doffs independently) Toileting Hygiene (QC): 6 (Using grabbars and FWW, pt able to complete by self.) Toilet Transfer (QC): 6 (Using grabbars and FWW pt able to complete by self.) Footwear(QC) 6-Using sock aid pt dons socks. Pt able to doff socks without AE. OT Home Performance Consultant Goals [facility] Goals Time Frame: Feb 24, 2019 Eating (QC): 6 (met-02/16/19) Oral Hygiene (QC): 6 (met-02/16/19) Toileting Hygiene (QC): 6 (met-02/16/19) Shower/Bathe Self (QC): 6 (met-02/16/19) Upper Body Dressing (QC): 6 (met-02/16/19) Lower Body Dressing (QC): 6 (met-02/16/19) On/Off Footwear (QC): 6 (met-02/16/19) Additional Goals: 1-Demonstrate ADL Tasks, 2-Verbalize Understanding, 3- ImproveStrength/Shari 1=Demonstrate adherence to instructed precautions during ADL tasks. 2=Patient will verbalize/demonstrate understanding of assistive devices/modifications for ADL. 3=Patient will improve strength/tolerance for activity to enable patient to perform ADL's. OT Education/Plan Discharge Recommendations Plan/Recommendations: Discharge/Goals Met Therapy Discharge Recommendati: Post Acute OT Equpiment Recommendations-D/C: Sock Aide Treatment Plan/Plan of Care Patient would benefit from OT for education, treatment and training to promote independence in ADL's, mobility, safety and/or upper extremity function for ADL's. Plan of Care: ADL Retraining, Functional Mobility, Group Exercise/Act as Ind, UE Funct Exercise/Act Treatment Duration: Feb 24, 2019 Frequency: At least 5 of 7 days/Wk (IRF) Estimated Hrs Per Day: 1.5 hours per day Rehab Potential: Good Time/GCodes Start Time: 07:00 Stop Time: 07:30 Total Time Billed (hr/min): 30 Billed Treatment Time 1 visit-ADL 2 (30 min) RL CHARLES Feb 16, 2019 07:28 POS
--- NOTE | 2019-02-16 08:00 | NUR ---
LOWER EXTREMITY EDEMA MUCH IMPROVED. PATIENT ANXIOUS TO GO HOME TODAY AND DENIES COMPLAINTS.
--- NOTE | 2019-02-16 09:13 | Discharge Summary ---
Diagnosis/Chief Complaint Date of Admission Feb 10, 2019 at 10:20 Date of Discharge Discharge Date: Feb 16, 2019 Discharge Diagnosis Assessment: Generalized weakness Fall risk Recent colon perforation AF OAC Anemia Edema Plan: Monitor for falls IRF protocol Doing very well Compression stockings Edema improved Repeat UA negative (1) Debility (2) History of hemicolectomy Status: Chronic (3) Paroxysmal A-fib Status: Chronic (4) History of colon cancer Status: Chronic (5) HTN (hypertension) Status: Chronic (6) Asthma Status: Chronic (7) Anemia (8) Dyspnea Status: Acute (9) Fatigue Status: Acute Discharge Summary Discharge Physical Examination Allergies: Coded Allergies: Penicillins (Unverified Allergy, Mild, 02/02/19) iodine (Unverified Allergy, Mild, 02/02/19) Sulfa (Sulfonamide Antibiotics) (Verified Allergy, Unknown, 02/02/19) sulfamethoxazole (Verified Allergy, Unknown, 02/02/19) trimethoprim (Verified Allergy, Unknown, 02/02/19) Vitals & I&Os Vital Signs Date Time Temp Pulse Resp B/P (MAP) Pulse Ox O2 Delivery O2 Flow Rate FiO2 02/16/19 20:03 36.4 82 18 115/71 Room Air 02/16/19 06:14 97 General Appearance: Alert, Oriented X3, Cooperative Respiratory: Clear to Auscultation, Normal Air Movement Neuro: Normal Gait, Normal Speech, Strength at 5/5 X4 Ext Hospital Course Was the Problem List Reviewed?: Yes Hospital course: Pt did very well in therapy orders for inpatient rehab protocol, he had lower extremity edema and that was aggressively treated and Pt did have a major improvement in that prior to discharge. She was continued on all of her home medication and overall did very well in inpatient rehab to get back to her prior level of functioning and did not require any home health services at all. Labs (last 24 hrs) Laboratory Tests 02/11/19 05:13: White Blood Count 8.4, Red Blood Count 3.58L, Hemoglobin 10.9L, Hematocrit 33L, Mean Corpuscular Volume 92, Mean Corpuscular Hemoglobin 30, Mean Corpuscular Hemoglobin Concent 33, Red Cell Distribution Width 14.9H, Platelet Count 272, Mean Platelet Volume 9.2, Neutrophils (%) (Auto) 68, Lymphocytes (%) (Auto) 16, Monocytes (%) (Auto) 12, Eosinophils (%) (Auto) 5, Basophils (%) (Auto) 0, Neutrophils # (Auto) 5.7, Lymphocytes # (Auto) 1.3, Monocytes # (Auto) 1.0, Eosinophils # (Auto) 0.4H, Basophils # (Auto) 0.0, Sodium Level 139, Potassium Level 3.7, Chloride Level 102, Carbon Dioxide Level 28, Anion Gap 9, Blood Urea Nitrogen 10, Creatinine 0.77, Estimat Glomerular Filtration Rate > 60, BUN/Creatinine Ratio 13, Glucose Level 107H, Calcium Level 7.9L, Corrected Calcium 8.8, Total Bilirubin 0.2, Aspartate Amino Transf (AST/SGOT) 12, Alanine Aminotransferase (ALT/SGPT) < 6, Alkaline Phosphatase 45, Total Protein 5.2L, Albumin 2.9L 02/13/19 05:51: White Blood Count 11.1H, Red Blood Count 3.68L, Hemoglobin 11.1L, Hematocrit 34L , Mean Corpuscular Volume 92, Mean Corpuscular Hemoglobin 30, Mean Corpuscular Hemoglobin Concent 33, Red Cell Distribution Width 15.0H, Platelet Count 308, Mean Platelet Volume 9.4, Neutrophils (%) (Auto) 75, Lymphocytes (%) (Auto) 14, Monocytes (%) (Auto) 10, Eosinophils (%) (Auto) 2, Basophils (%) (Auto) 0, Neutrophils # (Auto) 8.3H, Lymphocytes # (Auto) 1.5, Monocytes # (Auto) 1.1H, Eosinophils # (Auto) 0.2, Basophils # (Auto) 0.0, Sodium Level 138, Potassium Level 4.0, Chloride Level 102, Carbon Dioxide Level 27, Anion Gap 9, Blood Urea Nitrogen 17, Creatinine 0.96, Estimat Glomerular Filtration Rate 55, BUN/Creatinine Ratio 18, Glucose Level 94, Calcium Level 8.5, Corrected Calcium 9.2, Total Bilirubin 0.2, Aspartate Amino Transf (AST/SGOT) 13, Alanine Aminotransferase (ALT/SGPT) < 6, Alkaline Phosphatase 44, Total Protein 5.6L, Albumin 3.1L 02/15/19 10:10: Urine Color YELLOW, Urine Clarity CLEAR, Urine pH 7.5, Urine Specific [place] 1.010L, Urine Protein NEGATIVE, Urine Glucose (UA) NEGATIVE, Urine Ketones NEGATIVE, Urine Nitrite NEGATIVE, Urine Bilirubin NEGATIVE, Urine Urobilinogen 0.2, Urine Leukocyte Esterase NEGATIVE, Urine RBC (Auto) NEGATIVE, Urine RBC RARE, Urine WBC RARE, Urine Crystals NONE, Urine Bacteria NEGATIVE, Urine Casts NONE, Urine Mucus NEGATIVE, Urine Culture Indicated NO Pending Labs Laboratory Tests 02/11/19 05:13: White Blood Count 8.4, Red Blood Count 3.58, Hemoglobin 10.9, Hematocrit 33, Mean Corpuscular Volume 92, Mean Corpuscular Hemoglobin 30, Mean Corpuscular Hemoglobin Concent 33, Red Cell Distribution Width 14.9, Platelet Count 272, Mean Platelet Volume 9.2, Neutrophils (%) (Auto) 68, Lymphocytes (%) (Auto) 16, Monocytes (%) (Auto) 12, Eosinophils (%) (Auto) 5, Basophils (%) (Auto) 0, Neutrophils # (Auto) 5.7, Lymphocytes # (Auto) 1.3, Monocytes # (Auto) 1.0, Eosinophils # (Auto) 0.4, Basophils # (Auto) 0.0, Sodium Level 139, Potassium Level 3.7, Chloride Level 102, Carbon Dioxide Level 28, Anion Gap 9, Blood Urea Nitrogen 10, Creatinine 0.77, Estimat Glomerular Filtration Rate > 60, BUN/Cr eatinine Ratio 13, Glucose Level 107, Calcium Level 7.9, Corrected Calcium 8.8, Total Bilirubin 0.2, Aspartate Amino Transf (AST/SGOT) 12, Alanine Aminotransferase (ALT/SGPT) < 6, Alkaline Phosphatase 45, Total Protein 5.2, Albumin 2.9 02/13/19 05:51: White Blood Count 11.1, Red Blood Count 3.68, Hemoglobin 11.1, Hematocrit 34, Mean Corpuscular Volume 92, Mean Corpuscular Hemoglobin 30, Mean Corpuscular Hemoglobin Concent 33, Red Cell Distribution Width 15.0, Platelet Count 308, Mean Platelet Volume 9.4, Neutrophils (%) (Auto) 75, Lymphocytes (%) (Auto) 14, Monocytes (%) (Auto) 10, Eosinophils (%) (Auto) 2, Basophils (%) (Auto) 0, Neutrophils # (Auto) 8.3, Lymphocytes # (Auto) 1.5, Monocytes # (Auto) 1.1, Eosinophils # (Auto) 0.2, Basophils # (Auto) 0.0, Sodium Level 138, Potassium Level 4.0, Chloride Level 102, Carbon Dioxide Level 27, Anion Gap 9, Blood Urea Nitrogen 17, Creatinine 0.96, Estimat Glomerular Filtration Rate 55, BUN/Creatinine Ratio 18, Glucose Level 94, Calcium Level 8.5, Corrected Calcium 9.2, Total Bilirubin 0.2, Aspartate Amino Transf (AST/SGOT) 13, Alanine Aminotransferase (ALT/SGPT) < 6, Alkaline Phosphatase 44, Total Protein 5.6, Albumin 3.1 02/15/19 10:10: Urine Color YELLOW, Urine Clarity CLEAR, Urine pH 7.5, Urine Specific [place] 1.010, Urine Protein NEGATIVE, Urine Glucose (UA) NEGATIVE, Urine Ketones NEGATIVE, Urine Nitrite NEGATIVE, Urine Bilirubin NEGATIVE, Urine Urobilinogen 0.2, Urine Leukocyte Esterase NEGATIVE, Urine RBC (Auto) NEGATIVE, Urine RBC RARE, Urine WBC RARE, Urine Crystals NONE, Urine Bacteria NEGATIVE, Urine Casts NONE, Urine Mucus NEGATIVE, Urine Culture Indicated NO Discharge Home Medications: Active Scripts Active Hydrocodone-Acetamin 7.5-325 (Hydrocodone/Acetaminophen) 1 Each Tablet 1-2 Tab PO Q4H Zofran (Ondansetron HCl) 4 Mg Tab 4 Mg PO Q4H PRN Reported Multi-Vitamin Daily (Multivitamin) 1 Each Tablet 1 Each PO DAILY Eliquis (Apixaban) 2.5 Mg Tablet 2.5 Mg PO BID Tylenol Extra Strength (Acetaminophen) 500 Mg Tablet 500 Mg PO BID Vitamin D3 (Cholecalciferol (Vitamin D3)) 1,000 Unit Capsule 1,000 Unit PO DAILY Calcium 500 + Vit D Caplet (Calcium Carbonate/Vitamin D3) 1 Each Tablet 1 Tab PO DAILY Metoprolol Succinate 100 Mg Tab.er.24h 100 Mg PO DAILY Montelukast Sodium 10 Mg Tablet 10 Mg PO HS Instructions to patient/family Please see electronic discharge instructions given to patient. Diagnosis/Problems Diagnosis/Problems (1) Debility (2) History of hemicolectomy Status: Chronic (3) Paroxysmal A-fib Status: Chronic (4) History of colon cancer Status: Chronic (5) HTN (hypertension) Status: Chronic (6) Asthma Status: Chronic (7) Anemia (8) Dyspnea Status: Acute (9) Fatigue Status: Acute Clinical Quality Measures DVT/VTE Risk/Contraindication: Risk Factor Score Per Nursin RFS Level Per Nursing on Admit: 4+=Very High NICHELLE LR DO Feb 16, 2019 09:13 POS
[2019-02-16] MEDS: VITAMIN D3 1,000 UNITS (CHOLECALCIFEROL) TABLET PO SCH (09:26)
[2019-02-16] MEDS: APIXABAN 2.5 MG (ELIQUIS) TABLET PO SCH (09:26)
[2019-02-16] MEDS: ACETAMINOPHEN 500 MG TAB (TYLENOL) PO SCH (09:26)
[2019-02-16] MEDS: meTOprolol SUCCINATE 100 MG (TOPROL XL) TAB PO SCH (09:26)
[2019-02-16] MEDS: CALCIUM CARB + VIT D 600 MG (CALCARB + D) TAB PO SCH (09:26)
[2019-02-16] MEDS: POLYETHYLENE GLYCOL 17 GM (MIRALAX) PACK PO SCH (09:27)
[2019-02-16] MEDS: SENNA W/DOCUSATE (SENOKOT S) TABLET PO SCH (09:28)
--- NOTE | 2019-02-16 11:09 | Therapy Team Discharge Summary ---
Therapy Discharge Summary Discharge Recommendations Date of Discharge Physical Therapy This patient was admitted to ARU post acute hospital stay due to physical debility. 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 Upon ad mission to [facility], she did not require assist with bed mobilty or transfers but did require assist with a car transfer. She was able to walk short distances without assist but for 150 ft or more, required SBA, using a FWW. Treatment has consisted of functional strength, balance and activity tolerance progression. At discharge, she is mod indep with all bed mobility, transfers and gait. She has made excellent progress and has achieved goals. Will discharge home this date. Occupational Therapy Decreased Activ Tolerance, Decreased UE Strength PT Bark Skinner Goals Prison Goals PT Bark Skinner Goals Time Frame: Mar 03, 2019 Roll Left to Right (QC): 6 Sit to Lying (QC): 6 Lying-Sitting on Side/Bed(QC): 6 Sit to Stand (QC): 6 Chair/Wol-ix-Pakgw Xfer(QC): 6 Car Transfer (QC): 6 Does the Patient Walk: Yes Walk 10 feet (QC): 6 Walk 10ft-Uneven Surface(QC): 6 Walk 50ft with 2 Turns (QC): 6 Walk 150 ft (QC): 6 Does the Pt use WC or Scooter?: No 1 Step (curb) (QC): 6 4 Steps (QC): 6 12 Steps (QC): 9 Picking up an Object (QC): 6 All LTG's have been met. OT Bark Skinner Goals Bark Skinner Goals Time Frame: Feb 24, 2019 Eating (QC): 6 (met-02/16/19) Oral Hygiene (QC): 6 (met-02/16/19) Shower/Bathe Self (QC): 6 (met-02/16/19) Upper Body Dressing (QC): 6 (met-02/16/19) Lower Body Dressing (QC): 6 (met-02/16/19) On/Off Footwear (QC): 6 (met-02/16/19) Toileting Hygiene (QC): 6 (met-02/16/19) Toilet/Commode Transfer (QC): 6 Additional Goals: 1-Demonstrate ADL Tasks, 2-Verbalize Understanding, 3-ImproveStrength/Shari 1=Demonstrate adherence to instructed precautions during ADL tasks. 2=Patient will verbalize/demonstrate understanding of assistive devices/modifications for ADL. 3=Patient will improve strength/tolerance for activity to enable patient to perform ADL's. RL ZEPEDA PT Feb 16, 2019 11:09 POS
[2019-02-16 20:03] VITALS: BP 115/71
--- NOTE | 2019-02-17 12:00 | Therapy Team Discharge Summary ---
Therapy Discharge Summary Discharge Recommendations Date of Discharge Feb 16, 2019 at 16:30 Occupational Therapy Pt admitted to ARU with LE swelling and weakness. On admission pt required min assist with LE dressing and footwear and set up for UE dressing and bathing. Skilled OT intervention focused on ADL training, transfers, strengthening, and safety. Pt made good progress with therapy and by discharge is completing ADLs and transfers with modified independence. All OT LTG were met. Pt discharged home. D/c ARU OT Decreased Activ Tolerance, Decreased UE Strength PT Intermediate Goals Intermediate Goals PT College Admissions Counselor Goals Time Frame: Mar 03, 2019 Roll Left to Right (QC): 6 Sit to Lying (QC): 6 Lying-Sitting on Side/Bed(QC): 6 Sit to Stand (QC): 6 Chair/Xdu-sn-Owvxi Xfer(QC): 6 Car Transfer (QC): 6 Does the Patient Walk: Yes Walk 10 feet (QC): 6 Walk 10ft-Uneven Surface(QC): 6 Walk 50ft with 2 Turns (QC): 6 Walk 150 ft (QC): 6 Does the Pt use WC or Scooter?: No 1 Step (curb) (QC): 6 4 Steps (QC): 6 12 Steps (QC): 9 Picking up an Object (QC): 6 OT Intermediate Goals College Admissions Counselor Goals Time Frame: Feb 24, 2019 Eating (QC): 6 (met-02/16/19) Oral Hygiene (QC): 6 (met-02/16/19) Shower/Bathe Self (QC): 6 (met-02/16/19) Upper Body Dressing (QC): 6 (met-02/16/19) Lower Body Dressing (QC): 6 (met-02/16/19) On/Off Footwear (QC): 6 (met-02/16/19) Toileting Hygiene (QC): 6 (met-02/16/19) Toilet/Commode Transfer (QC): 6 Additional Goals: 1-Demonstrate ADL Tasks, 2-Verbalize Understanding, 3- ImproveStrength/Shari 1=Demonstrate adherence to instructed precautions during ADL tasks. 2=Patient will verbalize/demonstrate understanding of assistive devices/modifications for ADL. 3=Patient will improve strength/tolerance for activity to enable patient to perform ADL's. CHRIS THOMPSON OT Feb 17, 2019 12:00 POS
== END 2019-02-16 16:30 | disposition home or self-care (01) | DRG 948 ==
PROVIDERS: ADMIT Internal Medicine; ATTEND Internal Medicine
DX: R53.1 Weakness (principal); R53.81 Other malaise; R53.83 Other fatigue; I48.0 Paroxysmal atrial fibrillation; J44.9 Chronic obstructive pulmonary disease, unspecified; I10 Essential (primary) hypertension; K57.90 Diverticulosis of intestine, part unspecified, without perforation or abscess without bleeding; M19.91 Primary osteoarthritis, unspecified site; D64.9 Anemia, unspecified; R60.0 Localized edema; H91.93 Unspecified hearing loss, bilateral; Z85.038 Personal history of other malignant neoplasm of large intestine
CPT/HCPCS: 36415; 80053; 81000; 85025

== ENCOUNTER → 2019-02-27 | Outpatient (CLI) | payer MEDICARE ==
--- NOTE | 2019-02-27 09:59 | Diagnostic Imaging Report ---
INDICATION: Routine screening. Comparison is made with prior mammogram 02/21/2018 and 02/17/2017. 2-D and 3-D bilateral screening mammography was performed with a Computer Aided Detection (CAD) system. 3-D tomosynthesis was also performed and reviewed. FINDINGS: Both breasts are heterogeneously dense, limiting the sensitivity of mammography. Cardiac monitoring device overlies the medial left breast. There are benign calcifications bilaterally. A biopsy clip in the outer left breast is again noted. Asymmetric density in the anterior outer aspect of the right breast is stable. Circumscribed nodular density in the outer left breast is stable. No spiculated mass or malignant appearing microcalcifications are seen. Axillae are unremarkable. IMPRESSION: No mammographic features suspicious for malignancy are identified. ACR BI-RADS Category 2: Benign findings. Result letter will be mailed to the patient. Note: At least 10% of breast cancer is not imaged by mammography. Dictated by: Dictated on workstation # [id number]
== END ==
LOC: RAD 09:08
PROVIDERS: ATTEND Internal Medicine
DX: Z12.31 Encounter for screening mammogram for malignant neoplasm of breast (principal); Z98.890 Other specified postprocedural states
CPT/HCPCS: 77067

== ENCOUNTER → 2019-07-26 | Outpatient (CLI) | payer MEDICARE ==
[~2019-07-26] MED LIST changes: -HYDR-3816 PO; -METO-387 PO; -METO-395 PO; -MONT10TA24 PO; +MONT10TA26 PO; +MTP100TCR PO; +MTP25TSR PO
[2019-07-26 09:08] LABS: BASOPHILS % (AUTO) 0 % (0-10); EOSINOPHILS # (AUTO) 0.3 10^3/uL (0.0-0.3); EOSINOPHILS % (AUTO) 4 % (0-10); HEMATOCRIT 38 % (35-52); HEMOGLOBIN 12.5 G/DL (11.5-16.0); LYMPHOCYTES # (AUTO) 1.4 X 10^3 (1.0-4.0); LYMPHOCYTES % (AUTO) 20 % (12-44); MEAN CORPUSCULAR HEMOGLOBIN 31 PG (25-34); MEAN CORPUSCULAR HGB CONC 33 G/DL (32-36); MEAN CORPUSCULAR VOLUME 94 FL (80-99); MEAN PLATELET VOLUME 9.6 FL (7.4-10.4); MONOCYTES # (AUTO) 0.8 X 10^3 (0.0-1.0); MONOCYTES % (AUTO) 11 % (0-12); NEUTROPHILS # (AUTO) 4.3 X 10^3 (1.8-7.8); NEUTROPHILS % (AUTO) 64 % (42-75); PLATELET COUNT 240 10^3/uL (130-400); RED CELL DISTRIBUTION WIDTH 14.5 % (10.0-14.5); WHITE BLOOD COUNT 6.7 10^3/uL (4.3-11.0)
[2019-07-26 09:28] LABS: ALBUMIN 3.9 GM/DL (3.2-4.5); BILIRUBIN,TOTAL 0.3 MG/DL (0.1-1.0); CALCIUM 9.1 MG/DL (8.5-10.1); CREATININE SERUM 0.98 MG/DL (0.60-1.30); POTASSIUM 4.6 MMOL/L (3.6-5.0)
== END ==
LOC: EDSTATUS 04-12 09:55 → ONC 08:54
PROVIDERS: ATTEND Internal Medicine Hematology & Oncology
DX: C18.2 Malignant neoplasm of ascending colon (principal)
CPT/HCPCS: 80053; 82378; 85025; 99213

== ENCOUNTER 2020-02-21 13:09 | Outpatient (RCR) | payer MEDICARE ==
[2020-01-15 09:08] LABS: BASOPHILS % (AUTO) 1 % (0-10); EOSINOPHILS # (AUTO) 0.3 10^3/uL (0.0-0.3); EOSINOPHILS % (AUTO) 4 % (0-10); HEMATOCRIT 38 % (35-52); LYMPHOCYTES # (AUTO) 1.3 10^3/uL (1.0-4.0); LYMPHOCYTES % (AUTO) 17 % (12-44); MEAN CORPUSCULAR HEMOGLOBIN 30 pg (25-34); MEAN CORPUSCULAR HGB CONC 32 g/dL (32-36); MEAN CORPUSCULAR VOLUME 93 fL (80-99); MEAN PLATELET VOLUME 9.4 fL (9.0-12.2); MONOCYTES # (AUTO) 0.7 10^3/uL (0.0-1.0); MONOCYTES % (AUTO) 9 % (0-12); NEUTROPHILS # (AUTO) 5.4 10^3/uL (1.8-7.8); NEUTROPHILS % (AUTO) 70 % (42-75); PLATELET COUNT 207 10^3/uL (130-400); WHITE BLOOD COUNT 7.8 10^3/uL (4.3-11.0)
[2020-01-15 09:29] LABS: ALBUMIN 3.9 GM/DL (3.2-4.5); BILIRUBIN,TOTAL 0.5 MG/DL (0.1-1.0); CALCIUM 8.8 MG/DL (8.5-10.1); CREATININE SERUM 1.11 MG/DL (0.60-1.30); POTASSIUM 4.9 MMOL/L (3.6-5.0); TOTAL PROTEIN 6.8 GM/DL (6.4-8.2)
[~2020-02-21 13:09] MED LIST changes: +AMLO-250 PO; +AMLO-251 PO; -AMLO10TA7 PO; -AMLO5TAB9 PO; +ASPI-1238 PO; -ASPI-983 PO; -MONT10TA26 PO; +MONT10TA97 PO; -PANT40TA3 PO; +PANT40TA52 PO
[2020-02-21 13:25] LABS: BASOPHILS % (AUTO) 1 % (0-10); EOSINOPHILS # (AUTO) 0.3 10^3/uL (0.0-0.3); EOSINOPHILS % (AUTO) 3 % (0-10); HEMATOCRIT 40 % (35-52); HEMOGLOBIN 12.7 g/dL (11.5-16.0); LYMPHOCYTES # (AUTO) 2.1 10^3/uL (1.0-4.0); LYMPHOCYTES % (AUTO) 24 % (12-44); MEAN CORPUSCULAR HEMOGLOBIN 30 pg (25-34); MEAN CORPUSCULAR HGB CONC 32 g/dL (32-36); MEAN CORPUSCULAR VOLUME 94 fL (80-99); MEAN PLATELET VOLUME 9.9 fL (9.0-12.2); MONOCYTES # (AUTO) 0.8 10^3/uL (0.0-1.0); MONOCYTES % (AUTO) 9 % (0-12); NEUTROPHILS # (AUTO) 5.5 10^3/uL (1.8-7.8); NEUTROPHILS % (AUTO) 63 % (42-75); PLATELET COUNT 234 10^3/uL (130-400); WHITE BLOOD COUNT 8.6 10^3/uL (4.3-11.0)
[2020-02-21 13:45] LABS: CREATININE SERUM 0.99 MG/DL (0.60-1.30); POTASSIUM 3.9 MMOL/L (3.6-5.0)
[2020-02-21 13:46] LABS: ALBUMIN 4.1 GM/DL (3.2-4.5); BILIRUBIN,TOTAL 0.3 MG/DL (0.1-1.0); CALCIUM 9.1 MG/DL (8.5-10.1); TOTAL PROTEIN 7.2 GM/DL (6.4-8.2)
== END 2020-04-14 | disposition home or self-care (01) ==
LOC: ONC 13:09
PROVIDERS: ATTEND Internal Medicine Hematology & Oncology
DX: C18.9 Malignant neoplasm of colon, unspecified (principal); I10 Essential (primary) hypertension; I48.0 Paroxysmal atrial fibrillation; Z79.01 Long term (current) use of anticoagulants
CPT/HCPCS: 80053; 82378; 85025; 99213

== ENCOUNTER → 2020-03-04 | Outpatient (CLI) | payer MEDICARE ==
--- NOTE | 2020-03-04 11:35 | Diagnostic Imaging Report ---
PROCEDURE: US Thyroid. TECHNIQUE: Multiple real-time grayscale images were obtained of the thyroid in various projections. INDICATION: Abnormal thyroid function studies. FINDINGS: The right thyroid lobe is 3.8 x 1.5 x 1.4 cm. Contains a tiny 3 mm hypoechoic nodule with a central calcification as a benign finding. Its parenchyma is diffusely heterogeneous but no dominant mass. The left thyroid lobe is prominent 5.4 x 2.5 x 2.4 cm and diffusely heterogeneous. Both lobes showed no abnormal elevation of color Doppler blood flow, the left lobe nonfocal with no solid or cystic mass. The heterogeneous isthmus mildly thickened at 4 mm but appeared nonfocal. IMPRESSION: 1. Tiny benign subcentimeter right lobe nodule as a TI-RADS 3 lesion requiring no further workup. 2. Left lobe thyromegaly with diffusely heterogeneous thyroidal parenchymal with no hypervascularity or suspicious mass. Dictated by: Dictated on workstation # [id number]
--- NOTE | 2020-03-04 12:23 | Diagnostic Imaging Report ---
INDICATION: Routine screening. COMPARISON: 02/27/2019 and 02/21/2018. TECHNIQUE: 2D and 3D bilateral screening mammography was performed with CAD. FINDINGS: Both breasts are heterogeneously dense, limiting the sensitivity of mammography. The circumscribed density in the outer right breast is stable. There is a density in the outer left breast which appears to be slightly larger. Additional views would be recommended. There are scattered benign calcifications. There is a biopsy clip in the upper left breast. A cardiac monitoring device overlies the medial left breast. The axillae are unremarkable. IMPRESSION: Left breast density. Additional views are recommended for further evaluation. ACR BI-RADS Category 0: Incomplete. (Needs additional imaging evaluation). Result letter will be mailed to the patient. Note: At least 10% of breast cancer is not imaged by mammography. Dictated by: Dictated on workstation # [id number]
== END ==
LOC: RAD 08:50
PROVIDERS: ATTEND Internal Medicine
DX: Z12.31 Encounter for screening mammogram for malignant neoplasm of breast (principal); E04.1 Nontoxic single thyroid nodule
CPT/HCPCS: 76536; 77063; 77067

== ENCOUNTER → 2020-03-07 | Outpatient (CLI) | payer MEDICARE ==
--- NOTE | 2020-03-07 10:16 | Diagnostic Imaging Report ---
INDICATION: Left breast density. Patient presents for additional views. CORRELATION is made with a screening study from 03/04/2020. Unilateral left 2-D and 3-D diagnostic mammography was performed with CAD. This includes spot compression CC and ML views as well as conventional 90 degree lateral views. Persistent density in the outer left breast mid depth is noted. At approximately the 3:00 location, 4-7 cm from the nipple. Biopsy clip in the outer left breast is noted. IMPRESSION: Persistent nodular density in the outer left breast mid depth. Further evaluation with ultrasound is recommended and will be performed today. BI-RADS 0 ACR BI-RADS Category 0: Incomplete. (Needs additional imaging evaluation). Result letter will be mailed to the patient. Note: At least 10% of breast cancer is not imaged by mammography. Dictated by: Dictated on workstation # [id number]
--- NOTE | 2020-03-07 10:34 | Diagnostic Imaging Report ---
INDICATION: Left breast density. CORRELATION is made with a diagnostic mammogram earlier the same day. Sonographic interrogation outer left breast demonstrates a simple cyst at the 3:30 location, 4 cm from the nipple. This measures 5 mm x 4 mm x 6 mm. This correlates in size and location to the density noted mammographically. No other abnormalities are seen. IMPRESSION: BI-RADS 2. Simple cyst at the 3:30 location left breast, 4 cm from the nipple, accounting for the mammographic density. Patient may return to routine annual screening mammography. ACR BI-RADS Category 2: Benign findings. Result letter will be mailed to the patient. Note: At least 10% of breast cancer is not imaged by mammography. Dictated by: Dictated on workstation # [id number]
== END ==
LOC: RAD 09:06
PROVIDERS: ATTEND Internal Medicine
DX: N60.02 Solitary cyst of left breast (principal)
CPT/HCPCS: 76642; 77065; G0279

== ENCOUNTER 2020-12-20 09:58 | Outpatient (RCR) | payer MEDICARE ==
[2020-12-18 13:50] LABS: BASOPHILS % (AUTO) 0 % (0-10); EOSINOPHILS # (AUTO) 0.2 10^3/uL (0.0-0.3); EOSINOPHILS % (AUTO) 3 % (0-10); HEMATOCRIT 35 % (35-52); HEMOGLOBIN 11.3 g/dL (11.5-16.0); LYMPHOCYTES # (AUTO) 1.7 10^3/uL (1.0-4.0); LYMPHOCYTES % (AUTO) 19 % (12-44); MEAN CORPUSCULAR HEMOGLOBIN 31 pg (25-34); MEAN CORPUSCULAR HGB CONC 32 g/dL (32-36); MEAN CORPUSCULAR VOLUME 96 fL (80-99); MEAN PLATELET VOLUME 9.8 fL (9.0-12.2); MONOCYTES # (AUTO) 0.9 10^3/uL (0.0-1.0); MONOCYTES % (AUTO) 11 % (0-12); NEUTROPHILS # (AUTO) 5.9 10^3/uL (1.8-7.8); NEUTROPHILS % (AUTO) 67 % (42-75); PLATELET COUNT 237 10^3/uL (130-400); WHITE BLOOD COUNT 8.9 10^3/uL (4.3-11.0)
[2020-12-18 14:12] LABS: ALBUMIN 3.6 GM/DL (3.2-4.5); BILIRUBIN,TOTAL 0.3 MG/DL (0.1-1.0); CALCIUM 9.5 MG/DL (8.5-10.1); CREATININE SERUM 0.99 MG/DL (0.60-1.30); POTASSIUM 4.5 MMOL/L (3.6-5.0); TOTAL PROTEIN 6.7 GM/DL (6.4-8.2)
[~2020-12-20 09:58] MED LIST changes: +MONT-40 PO; -MONT10TA97 PO; +POTA-160 PO; -POTA10TA6 PO; -POTA99TA21 PO; +POTA99TA26 PO
[2021-01-06] MEDS ORDERED: AMLO-251 PO (12:25)
[2021-01-06] MEDS ORDERED: OMG1KC PO (12:25)
[2021-01-06] MEDS ORDERED: ASCO500C18 PO (12:25)
[2021-01-06] MEDS ORDERED: CYAN50009 PO (12:25)
[2021-01-06] MEDS ORDERED: RIVA10TA PO (12:25)
[2021-02-01] MEDS ORDERED: PANT40TA2 PO (20:38)
== END 2021-03-07 | disposition home or self-care (01) ==
LOC: ONC 09:58
PROVIDERS: ATTEND Internal Medicine Hematology & Oncology
DX: C18.9 Malignant neoplasm of colon, unspecified (principal); D64.9 Anemia, unspecified; I10 Essential (primary) hypertension; E66.9 Obesity, unspecified; Z79.01 Long term (current) use of anticoagulants; Z90.49 Acquired absence of other specified parts of digestive tract
CPT/HCPCS: 80053; 82378; 82728; 83540; 83550; 85025; G0463; 82274; 99213

== ENCOUNTER 2021-01-03 06:01 | Outpatient (CLI) | payer MEDICARE ==
[~2021-01-03] VITALS: Ht 160 cm; Wt 77.2 kg
[~2021-01-03 06:01] MED LIST changes: -ASCO500C18 PO; -CYAN50009 PO; -OMG1KC PO; -RIVA10TA PO
[2021-01-06] MEDS ORDERED: CYAN50009 PO (12:25)
[2021-01-06] MEDS ORDERED: OMG1KC PO (12:25)
[2021-01-06] MEDS ORDERED: ASCO500C18 PO (12:25)
[2021-01-06] MEDS ORDERED: RIVA10TA PO (12:25)
[2021-01-06] MEDS ORDERED: AMLO-251 PO (12:25)
== END 2021-01-06 13:02 | disposition home or self-care (01) ==
LOC: PREOP 06:01
PROVIDERS: ATTEND Internal Medicine
DX: Z01.818 Encounter for other preprocedural examination (principal)

== ENCOUNTER → 2021-01-03 | Outpatient (CLI) | payer MEDICARE ==
[~2021-01-03] MED LIST changes: +ASCO500C18 PO; +CYAN50009 PO; -MONT-40 PO; +MONT10TA32 PO; +OMG1KC PO; -POTA-160 PO; +POTA10TA6 PO; +POTA99TA21 PO; -POTA99TA26 PO; +RIVA10TA PO
--- NOTE | 2021-01-03 10:28 | Diagnostic Imaging Report ---
PROCEDURE: CT abdomen and pelvis without contrast. TECHNIQUE: Multiple contiguous axial images were obtained through the abdomen and pelvis without the use of intravenous contrast. Auto Exposure Controls were utilized during the CT exam to meet ALARA standards for radiation dose reduction. INDICATION: 85-year-old female, abdominal pain with history of colon cancer. CORRELATION STUDY: 02/05/2019. FINDINGS: LOWER THORAX: Heart size is borderline enlarged. Minimal basilar atelectasis and/or scarring. Small hiatal hernia with some circumferential wall thickening at the GE junction. LIVER: Unremarkable. GALLBLADDER: Cholecystectomy. No overt bile duct dilatation. SPLEEN: Unremarkable. PANCREAS: Rather prominent atrophic changes. ADRENAL GLANDS: Unremarkable. KIDNEYS: Some generalized thinning of the renal parenchyma. Nonobstructing stone in the inferior pole of the left kidney. No ureteric calcification or obstructive uropathy. ABDOMINAL AORTA: Rather extensive aortoiliac wall calcification, nonaneurysmal. Intraluminal assessment unable to be assessed given lack of contrast. GASTROINTESTINAL TRACT: Stomach is relatively collapsed. A few gas-filled small bowel are present without findings to suggest underlying obstruction. Question some areas of asymmetric small bowel wall thickening in the particularly left mid abdomen. Postoperative changes of right hemicolectomy with anastomotic suture line appearing unremarkable in the right mid and upper abdomen. Extensive colonic diverticulosis. There is wall thickening of the sigmoid colon. Slight haziness of the sigmoid colon with possibility of lower grade colonic diverticulitis not excluded. No abdominal ascites or free air. Fat-containing retro-umbilical hernia. URINARY BLADDER: Decompressed, not well evaluated. REPRODUCTIVE: Unremarkable. OSSEOUS STRUCTURES: Rather markedly advanced degenerative change about the lumbar spine. Grade 1-2 spondylolisthesis of L4 on L5. Marked disc space narrowing and hypertrophic facet arthropathy. Various degrees of multiple compression deformities. Various degrees of rather significant spinal canal and foraminal narrowing. OTHER: None. IMPRESSION: 1. Extensive colonic diverticulosis. Question mild colonic wall thickening of the sigmoid colon; possibility of lower grade acute diverticulitis not excluded. 2. No small bowel obstruction. There is, however, suggestion of asymmetric areas of small bowel wall thickening. Possibility of enteritis or other infiltrative process not excluded. Given findings, correlation with small bowel follow-through study may be of additional diagnostic utility. Dictated by: Dictated on workstation # [id number]
== END ==
LOC: RAD 09:45
PROVIDERS: ATTEND Internal Medicine
DX: K57.30 Diverticulosis of large intestine without perforation or abscess without bleeding (principal); Z85.038 Personal history of other malignant neoplasm of large intestine
CPT/HCPCS: 74176

== ENCOUNTER 2021-01-10 09:05 | Day surgery (SDC) | payer MEDICARE ==
--- NOTE | 2021-01-02 14:56 | HISTORY AND PHYSICAL ---
DATE OF SERVICE: COLONOSCOPY HISTORY AND PHYSICAL HISTORY OF PRESENT ILLNESS: The patient is an 85-year-old white female being referred for surveillance colonoscopy. She was diagnosed with colon cancer in 11/2016 involving the mid ascending colon. She subsequently underwent right hemicolectomy. There has been no evidence for recurrence to date. She reports that she has felt well. She does note some intermittent fatigue and she feels is age-related. She has noted no bright red blood per rectum, melena. Does have some intermittent right upper quadrant abdominal pain. She does have a past history of cholecystectomy. She states that she is being set up for CT scan of the abdomen later this week. She denies any change in weight and has had no dysphagia or odynophagia. Denies any heartburn type symptoms. PAST MEDICAL HISTORY: Other than colon cancer, it is significant for paroxysmal atrial fibrillation and hypertension with no known history of coronary artery disease. She currently takes Xarelto 20 mg each evening and is on no aspirin therapy. She has a history of hypertension for which she takes amlodipine 5 mg at bedtime. OTHER MEDICATIONS: Include metoprolol 100 mg b.i.d. and Singulair 10 mg daily. Takes vitamin B12 supplement, vitamin C and vitamin D supplement with fish oil. SOCIAL HISTORY: She is with no past smoking or drinking history. PAST SURGICAL HISTORY: Other than cholecystectomy, she has had several orthopedic procedures that did not result in joint replacement and has had cataract surgery. REVIEW OF SYSTEMS: CONSTITUTIONAL: The patient denies night sweats, chills, fever, or change in weight. Her weight is up 4.6 pounds from last office weight in 10/2016. GASTROINTESTINAL: As noted in the HPI. PULMONARY: Denies shortness of breath, cough or wheezing. CARDIOVASCULAR: Denies any recent problems with atrial fibrillation, palpitations, heart racing, orthopnea, PND, pedal edema. PHYSICAL EXAMINATION: GENERAL: Reveals a pleasant white female, appears to be in no acute distress. Weight 177 pounds, blood pressure 140/82, heart rate 66 and regular. HEENT: Unremarkable. CHEST: Clear. CARDIOVASCULAR: Reveals regular rate and rhythm without significant murmur, S3 or S4. ABDOMEN: Soft, supple without mass, organomegaly or tenderness. EXTREMITIES: Reveal no cyanosis, clubbing or edema. 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 Prep instructions and Suprep kit were given, and questions were answered. She is to hold Boxbe for 48 hours prior to the procedure. Job ID: [id number] DocumentID: [id number] Dictated Date: 12/30/2020 11:02:26 Specialty Trimmer Date: 12/30/2020 11:43:49 Dictated By: SUAD CASE MD
[~2021-01-10] VITALS: Ht 160 cm; Wt 77.2 kg
[~2021-01-10 09:05] MED LIST changes: +ASCO500C18 PO; +CYAN50009 PO; +OMG1KC PO; +RIVA10TA PO
[2021-01-10] MEDS ORDERED: LACTATED RINGERS 1,000 ML IV ONE (09:09)
[2021-01-10] MEDS ORDERED: LACTATED RINGERS 1,000 ML IV STA (09:16)
[2021-01-10] MEDS ORDERED: LIDOCAINE JELLY 2% 6 ML SYRINGE MM PRN (09:30)
[2021-01-10 09:33] VITALS: BP 164/74
--- NOTE | 2021-01-10 10:14 | Pre-Op Note & Conscious Sedat ---
Pre-Operative Progress Note H&P Reviewed The H&P was reviewed, patient examined and no changes noted. Date H&P Reviewed: Jan 10, 2021 Time H&P Reviewed: 10:14 Conscious Sedation Pre-Proced ASA Score 2 For ASA 3 and 4: Consider anesthesia and medical clearance. Also, for patients with a history of failed moderate sedation consider anesthesia. Airway Lungs Heart ASA score ASA 1: a normal healthy patient ASA 2: a patient with a mild systemic disease (mid diabetes, controlled hypertension, obesity ASA 3: a patient with a severe systemic disease that limits activity (angina, COPD, prior Myocardial infarction) ASA 4: a patient with an incapacitating disease that is a constant threat to life (CHF, renal failure) ASA 5: a moribund patient not expected to survive 24 hrs. (ruptured aneurysm) ASA 6: a declared brain- patient whose organs are being harvested. For emergent operations, add the letter E after the classification Mallampati Classification Grade 2 Sedation Plan Analgesia, Amnesia, Plan communicated to team members, Discussed options with patient/fam, Discussed risks with patient/fam The patient is an appropriate candidate to undergo the planned procedure, sedation, and anesthesia. The patient immediately re-assessed prior to indication. SUAD CASE MD Jan 10, 2021 10:14
[2021-01-10] MEDS ORDERED: PROPOFOL INJECTION 50 ML IV ONE (11:08)
[2021-01-10 11:35] VITALS: BP 142/66
[2021-01-10 11:40] VITALS: BP 138/65
[2021-01-10 11:45] VITALS: BP 138/65
[2021-01-10 12:10] VITALS: BP_SYST 138; BP_SYST 144; BP_DIAS 65; BP_DIAS 71
--- NOTE | 2021-01-10 13:40 | Anesthesia-General Post-Op ---
MAC Patient Condition Mental Status/LOC: Same as Preop Cardiovascular: Satisfactory Nausea/Vomiting: Absent Respiratory: Satisfactory Pain: Controlled Complications: Absent Post Op Complications Complications None Follow Up Care/Instructions Patient Instructions None needed. Anesthesiology Discharge Order Discharge Order Patient is doing well, no complaints, stable vital signs, no apparent adverse anesthesia problems. No complications reported per nursing. JUAN MEJIA CRNA Jan 10, 2021 13:40
--- NOTE | 2021-01-10 18:14 | OPERATIVE REPORT ---
DATE OF SERVICE: COLONOSCOPY SUMMARY INDICATION FOR THE PROCEDURE: Surveillance, history of colon cancer. DESCRIPTION OF PROCEDURE: The patient was placed in the left lateral decubitus position. Prior to undergoing colonoscopy, digital rectal evaluation was performed. Anal sphincter tone was normal. Perianal reflexes intact. No abnormalities were noted on digital inspection of anal canal or distal rectal vault. The colonoscope was then inserted into the rectum and under direct visualization advanced to the ileocolonic anastomosis noted in the ascending colon. There was some retained solid stool in the sigmoid colon with severe diverticular disease elsewhere. Colon was well visualized with good prep condition. FINDINGS: No evidence for internal or external hemorrhoids were noted. The rectum was unremarkable. Severe diverticular disease without evidence for diverticulitis was noted in the sigmoid and descending colon. No other abnormalities in these areas were noted. The splenic flexure, transverse colon, hepatic flexure and what appears to be majority of the ascending colon was unremarkable with normal ileocolonic anastomosis judged to be in the mid to proximal ascending colon. No evidence for neoplasia was identified on today's procedure. ASSESSMENT: Severe diverticular disease without evidence for diverticulitis was noted in the sigmoid and descending colon with an otherwise normal colonoscopy to an unremarkable ileocolonic anastomosis noted in the ascending colon. Considering this patient's age and severe diverticular disease, would not advocate future surveillance colonoscopy. Job ID: [id number] DocumentID: [id number] Dictated Date: 01/10/2021 11:45:08 Mica Builder Date: 01/10/2021 18:13:59 Dictated By: SUAD CASE MD
== END 2021-01-10 12:54 ==
LOC: ENDO 09:05
PROVIDERS: ATTEND Internal Medicine
DX: Z12.11 Encounter for screening for malignant neoplasm of colon (principal); Z85.038 Personal history of other malignant neoplasm of large intestine; K57.30 Diverticulosis of large intestine without perforation or abscess without bleeding; Z79.899 Other long term (current) drug therapy; J45.909 Unspecified asthma, uncomplicated; I48.91 Unspecified atrial fibrillation; Z90.49 Acquired absence of other specified parts of digestive tract; I10 Essential (primary) hypertension

== ENCOUNTER 2021-02-01 15:40 | Day surgery (SDC) | payer MEDICARE ==
[~2021-02-01] VITALS: Ht 157 cm; Wt 77.0 kg
[2021-02-01] VITALS (18 sets, daily range): BP systolic 134–214; BP diastolic 67–97
[~2021-02-01 15:40] MED LIST changes: +MONT-40 PO; -MONT10TA32 PO; +POTA-160 PO; -POTA10TA6 PO; -POTA99TA21 PO; +POTA99TA26 PO
--- NOTE | 2021-02-01 16:15 | ED General ---
General Chief Complaint: Foreign Body Stated Complaint: SWALLOWED PILL W/ WRAPPER Source of Information: Patient Exam Limitations: No Limitations (TORRES MICHELLE APRN) History of Present Illness Date Seen by Provider: Feb 01, 2021 Time Seen by Provider: 17:00 Initial Comments to ER with reports that she swallowed an Imodium capsule that was still within the plastic/boatwright. She feels like it is stuck in her upper throat. She is able to swallow her own secretions and water but feels like it moves whenever she swallows. Timing/Duration: 1-3 Hours Severity: Moderate Associated Systoms: Denies Symptoms (TORRES MICHELLE APRN) Allergies and Home Medications Allergies Coded Allergies: Penicillins (Unverified Allergy, Mild, 02/02/19) iodine (Unverified Allergy, Mild, 02/02/19) Sulfa (Sulfonamide Antibiotics) (Verified Allergy, Unknown, 02/02/19) sulfamethoxazole (Verified Allergy, Unknown, 02/02/19) trimethoprim (Verified Allergy, Unknown, 02/02/19) Patient Home Medication List Home Medication List Reviewed: Yes (TORRES MICHELLE APRN) Acetaminophen (Tylenol Extra Strength) 500 Mg Tablet, 500 MG PO BID, (Reported) Entered as Reported by: DORIS PAREDES on 10/26/16 0946 Amlodipine Besylate (Amlodipine Besylate) 10 Mg Tablet, 10 MG PO DAILY, (Reported) Entered as Reported by: ILANA COTTER on 01/06/21 1225 Ascorbic Acid (Vitamin C) 500 Mg Capsule.er, 500 MG PO DAILY, (Reported) Entered as Reported by: ILANA COTTER on 01/06/21 1225 Calcium Carbonate/Vitamin D3 (Calcium 500 + Vit D Caplet) 1 Each Tablet, 1 TAB PO DAILY, (Reported) Entered as Reported by: DORIS PAREDES on 10/26/16 0946 Cyanocobalamin (Vitamin B-12) (Vitamin B12) 5,000 Mcg Tab.rapdis, 5,000 MCG PO DAILY, (Reported) Entered as Reported by: ILANA COTTER on 01/06/21 1225 Metoprolol Succinate (Metoprolol Succinate) 100 Mg Tab.er.24h, 100 MG PO DAILY, (Reported) Entered as Reported by: DORIS PAREDES on 10/26/16 0946 Montelukast Sodium (Montelukast Sodium) 10 Mg Tablet, 10 MG PO HS, (Reported) Entered as Reported by: DELORES JUNG on 12/05/14 1336 Multivitamin (Multi-Vitamin Daily) 1 Each Tablet, 1 EACH PO DAILY, (Reported) Entered as Reported by: JAYMIE MEYER on 01/25/19 1117 [place] 3 Polyunsat Fatty Acids (Fish Oil 1,000 mg Capsule) 1,000 Mg Cap, 1,000 MG PO DAILY, (Reported) Entered as Reported by: ILANA COTTER on 01/06/21 1225 Rivaroxaban (Xarelto) 10 Mg Tablet, 10 MG PO DAILY, (Reported) Entered as Reported by: ILANA COTTER on 01/06/21 1225 Review of Systems Review of Systems Constitutional: see HPI EENTM: see HPI, other (throat appears normal without blood no stridor) Respiratory: no symptoms reported Cardiovascular: no symptoms reported Genitourinary: no symptoms reported Musculoskeletal: no symptoms reported Skin: no symptoms reported Psychiatric/Neurological: No Symptoms Reported (TORRES MICHELLE APRN) Past Azmplrh-Jdxbvc-Zobfxw Hx Immunizations Up To Date Tetanus Booster (TDap): Unknown PED Vaccines UTD: No First/Initial COVID19 Vaccinat: MAY 2020 (TORRES MICHELLE APRN) Seasonal Allergies Seasonal Allergies: Yes (TORRES MICHELLE APRN) Past Medical History Surgeries: Yes (cataracts removed, COLON RESECTION, FOOT SX, LOOP MONITOR) Eye Surgery, Gallbladder Respiratory: Yes Asthma Currently Using CPAP: No Currently Using BIPAP: No Cardiac: Yes Atrial Fibrillation, Hypertension Neurological: No Reproductive Disorders: No Sexually Transmitted Disease: No HIV/AIDS: No Genitourinary: Yes (dribbling) Gastrointestinal: Yes ( colon ca, ) Diverticulosis, Chronic Diarrhea Musculoskeletal: Yes Arthritis Endocrine: No HEENT: Yes (GLASSES) Cataract Loss of Vision: Denies Hearing Impairment: Deaf Cancer: Yes Colon Did You Recieve Any Treatments: Yes What Type of Treatment Did You: Surgical Intervention Psychosocial: No Integumentary: No Recent Skin Changes Blood Disorders: Yes (anemia ) Adverse Reaction/Blood Tranf: No (HAS HAD BLOOD WITH NO REACTION) (TORRES MICHELLE APRN) Family Medical History Cancer around heart 19 FATHER Cardiovascular disease 19 MOTHER Congenital heart disease 19 MOTHER Hypertension 19 MOTHER Respiratory disorder 19 FATHER (lung cancer) No Pertinent Family Hx (TORRES MICHELLE APRN) Physical Exam Vital Signs Vital Signs - First Documented 02/01/21 16:12 Temp 36.0 Pulse 76 Resp 18 B/P (MAP) 154/75 (101) Pulse Ox 95 (KELLY LEVINE MD) Vital Signs Capillary Refill : (TORRES MICHELLE APRN) Height, Weight, BMI Height: 5'2.00" Weight: 180lbs. 0.0oz. 81.096052am; 30.15 BMI Method:Stated General Appearance: No Apparent Distress, WD/WN Eyes: Bilateral Eye Normal Inspection, Bilateral Eye PERRL, Bilateral Eye EOMI Neck: Full Range of Motion, Normal Inspection Respiratory: Lungs Clear, Normal Breath Sounds, No Accessory Muscle Use, No Respiratory Distress Cardiovascular: Regular Rate, Rhythm, Normal Peripheral Pulses Gastrointestinal: Normal Bowel Sounds, Non Tender, Soft Neurologic/Psychiatric: Alert, Oriented x3 Skin: Normal Color, Warm/Dry (TORRES MICHELLE APRN) Progress/Results/Core Measures Suspected Sepsis SIRS Temperature: Pulse: Respiratory Rate: Blood Pressure / Mean: (TORRES MICHELLE APRN) Results/Orders Vital Signs/I&O 02/01/21 16:12 Temp 36.0 Pulse 76 Resp 18 B/P (MAP) 154/75 (101) Pulse Ox 95 (KELLY LEVINE MD) Vital Signs/I&O Capillary Refill : (TORRES MICHELLE APRN) Departure Communication (Admissions) 1740-Spoke with Dr. Gaston after reviewing the CT neck and chest which shows an esophageal foreign body. He would like to give pain and anxiety medication, IV fluids, n.p.o. after 2 AM and plan for EGD for removal at 9:30 in the morning. 1800, patient would like me to call Dr. Gaston back and ask if he can do this tonight as she is very miserable. I did discuss with Dr. Gaston, it will be a little while but he could make it in later this evening for EGD. Patient is very pleased with this. (TORRES MICHELLE APRN) Impression Primary Impression: Foreign body in esophagus Disposition: ADMITTED INPATIENT Condition: Stable Admissions Decision to Admit Reason: Admit from ER (General) Decision to Admit/Date: Feb 01, 2021 Time/Decision to Admit Time: 17:47 (TORRES MICHELLE APRN) Departure-Patient Inst. Referrals: YORDAN RODRIGUEZ MD (PCP/Family) Primary Care Physician ATTENDING PHYSICIAN NOTE: I was physically present as attending physician in the emergency department during the care of this patient, but I was not directly involved in the decision making or delivery of care for this patient. (KELYL LEVINE MD) TORRES MICHELLE APRN Feb 01, 2021 16:14 KELLY LEVINE MD Feb 01, 2021 20:25
--- NOTE | 2021-02-01 16:35 | Diagnostic Imaging Report ---
INDICATION: Swallowed a pill in the wrapper and preserver. Feels like stuck in throat. EXAMINATION: Chest, 02/01/2021. COMPARISON: 02/04/2019. FINDINGS: There is a loop recorder device along the left chest. No other radiopaque foreign body is appreciated. The heart is stable. Pulmonary vascular is normal. Lungs and pleural spaces clear. IMPRESSION: No acute cardiopulmonary process. Dictated by: Dictated on workstation # [id number]
--- NOTE | 2021-02-01 16:37 | Diagnostic Imaging Report ---
INDICATION: Swallowed pill wrapped in foil. EXAMINATION: Abdomen, 02/01/2021. COMPARISON: 11/25/2016. FINDINGS: There is motion artifact which limits evaluation. Hyperdensity in the right upper quadrant likely the previously seen clips. No other radiopaque foreign body is appreciated. There is a nonobstructive bowel gas pattern. No dilated loops of bowel. No free air. IMPRESSION: Limited evaluation due to motion with densities in the right upper quadrant, likely previously noted clips. No other radiopaque foreign body is appreciated. Dictated by: Dictated on workstation # [id number]
--- NOTE | 2021-02-01 17:21 | Diagnostic Imaging Report ---
INDICATION: Foreign body ingestion. FINDINGS: CT NECK: A radiopaque foreign body is within the lower cervical esophagus at the level of the suprasternal notch measuring 7 mm transverse x 8 mm AP x 19 mm cephalocaudal. No pneumomediastinum or cervical spine emphysema. There is heavy carotid atherosclerotic vascular calcifications along the bulbs, greater left. Nasopharynx, oropharynx and hypopharynx otherwise unremarkable. The epiglottis and aryepiglottic folds unremarkable. Some enlargement and heterogeneity of the left thyroid lobe. No cervical adenopathy. There are degenerative changes throughout the cervical spine but no acute bony pathology. CT CHEST: No pneumothorax, pneumomediastinum or evidence for aspiration. The lungs are clear. No evidence for edema or pneumonia. No lung mass or thoracic adenopathy. There is a small hiatal hernia. There are degenerative changes to the bony structures with no acute osseous pathology. There is coronary artery atherosclerosis. The visualized upper abdomen nonacute. IMPRESSION: 1. CT neck: Radiopaque foreign body within the esophagus at the cervicothoracic junction without evidence for viscus rupture or hemorrhage. 2. CT chest: Unremarkable chest. Dictated by: Dictated on workstation # [id number]
[2021-02-01] MEDS ORDERED: NS IV 500 ML 500 ML ONE (18:49)
[2021-02-01] MEDS ORDERED: fentaNYL INJ 100 MCG/2 ML AMP ONE (18:57)
[2021-02-01] MEDS ORDERED: MIDAZOLAM 5 MG/5 ML (VERSED) VIAL ONE (18:57)
[2021-02-01] MEDS ORDERED: HURRICAINE EXT TUBE (BENZOCAINE) ONE (18:58)
[2021-02-01] MEDS ORDERED: LIDOCAINE JELLY 2% 6 ML SYRINGE ONE (18:58)
--- NOTE | 2021-02-01 20:33 | Conscious Sedation/ASA ---
Conscious Sedation Pre-Proced Time 19:00 ASA Score 2 For ASA 3 and 4: Consider anesthesia and medical clearance. Also, for patients with a history of failed moderate sedation consider anesthesia. Airway Lungs Heart ASA score ASA 1: a normal healthy patient ASA 2: a patient with a mild systemic disease (mid diabetes, controlled hypertension, obesity ASA 3: a patient with a severe systemic disease that limits activity (angina, COPD, prior Myocardial infarction) ASA 4: a patient with an incapacitating disease that is a constant threat to life (CHF, renal failure) ASA 5: a moribund patient not expected to survive 24 hrs. (ruptured aneurysm) ASA 6: a declared brain- patient whose organs are being harvested. For emergent operations, add the letter E after the classification Mallampati Classification Grade 2 Sedation Plan Analgesia, Amnesia, Plan communicated to team members, Discussed options with patient/fam, Discussed risks with patient/fam The patient is an appropriate candidate to undergo the planned procedure, sedation, and anesthesia. The patient immediately re-assessed prior to indication. STEPHANY ALY MD Feb 01, 2021 20:33
--- NOTE | 2021-02-01 20:34 | Progress Note-Pre Operative ---
Pre-Operative Progress Note H&P Reviewed The H&P was reviewed, patient examined and no changes noted. Date Seen by Provider: Feb 01, 2021 Time Seen by Provider: 19:00 Date H&P Reviewed: Feb 01, 2021 Time H&P Reviewed: 19:00 Pre-Operative Diagnosis: esophageal FB STEPHANY ALY MD Feb 01, 2021 20:34
--- NOTE | 2021-02-01 20:36 | Progress Note-Post Operative ---
Post-Operative Progess Note Surgeon (s)/Quality Control Manager (s) Surgeon STEPHANY ALY MD Quality Control Manager: none Pre-Operative Diagnosis esophageal FB Post-Operative Diagnosis upper esophageal FB, reflux esophagitis(stage 2), distal esoph stricture, moderate HH(3cm), mild gastritis. Procedure & Operative Findings Date of Procedure 02/01/21 Procedure Performed/Findings EGD with removal esoph FB, bx, balloon dilatation. Anesthesia Type cs Estimated Blood Loss Estimated blood loss (mL): minimal Specimens/Packing Specimens Removed ge jxn, antrum STEPHANY ALY MD Feb 01, 2021 20:36
[2021-02-01] MEDS ORDERED: PANT40TA2 PO (20:38)
--- NOTE | 2021-02-01 20:38 | Discharge Inst-Surgical ---
D/C Lap Instructions-KIDO New, Converted, or Re-Newed RX: RX on Chart Follow Up PRN Activity as tolerated mechanical soft diet next 2 days then regular diet. High Fiber Diet 25g or more per day Avoid Alcohol, Caffeine, Spicy [place] and Acid foods. Drink 64 fluid oz or more of fluids per day. Symptoms to Report: Fever over 101 degree F, Nausea/Vomiting If any problems/questions: Contact your physician or go to Emergency Room STEPHANY ALY MD Feb 01, 2021 20:38
--- NOTE | 2021-02-01 20:59 | HISTORY AND PHYSICAL ---
DATE OF SERVICE: ATTENDING PRIMARY CARE PHYSICIAN: Eddy Max MD. HISTORY OF PRESENT ILLNESS: The patient is an 85-year-old female known to us. She underwent a colonoscopy in 2016 and was found to have a lesion on the right side of the colon, which was biopsied and found to be an adenocarcinoma. On 11/20/2016, she underwent a laparoscopic right hemicolectomy. The tumor was a T3 tumor with no nodes identified. She has had followup colonoscopies with the last one was done in 01/2019 which was normal with no recurrent lesions. She presented today to the Emergency Department with dysphagia after accidentally swallowing an Imodium pill within the plastic blister container. She felt it in her upper portion of esophagus and there was a scratchy sensation. She does not report any hematemesis, no coffee ground emesis. She does report that she has had issues with gastroesophageal reflux disease. An chest x-ray was performed, which did not show any foreign body; however, a CT scan did show the foreign body in the upper third of the esophagus. PAST MEDICAL HISTORY: Right-sided colon cancer, atrial fibrillation, hypertension, diverticulosis, degenerative joint disease, cataracts. PAST SURGICAL HISTORY: Laparoscopic right hemicolectomy, laparoscopic cholecystectomy, eye surgery. ALLERGIES: PENICILLIN, IODINE, SULFA, BACTRIM. MEDICATIONS: Amlodipine 10 mg daily, metoprolol 100 mg daily, montelukast 10 mg daily, rivaroxaban 10 mg daily. SOCIAL HISTORY: Negative smoke, negative alcohol. FAMILY HISTORY: Mother, hypertension, congenital heart disease. VITAL SIGNS: Blood pressure 154/75, temperature 36.0, pulse 76, respirations 18, pulse ox 95% on room air. REVIEW OF SYSTEMS: Well-nourished female, in no acute distress. She is not experiencing any shortness of breath or difficulty breathing. She does have a scratchy sensation in the back of the throat. No hematemesis, no coffee ground emesis. No diarrhea or constipation, no red blood per rectum, no dark tarry stools. No fever or chills, no recent inadvertent weight loss. All other review of systems negative. PHYSICAL EXAMINATION: CHEST: Clear. Good breath sounds bilaterally. HEART: Regular, no murmurs. EXTREMITIES: No lower extremity edema, negative Homans sign. HEENT: No scleral icterus. NECK: No cervical lymphadenopathy. ABDOMEN: Soft, nontender, nondistended. SKIN: Warm, dry. ASSESSMENT AND PLAN: An 85-year-old female with esophageal foreign body. We will proceed with an EGD as well as removal of the foreign body as well as biopsies as appropriate. Job ID: [id number] DocumentID: [id number] Dictated Date: 02/01/2021 20:46:36 Gill Net Stringer Date: 02/01/2021 20:58:35 Dictated By: STEPHANY ALY MD [facility]
[2021-02-01] MEDS ORDERED: HURRICAINE EXT TUBE (BENZOCAINE) XX PRN (21:45)
[2021-02-01] MEDS ORDERED: LIDOCAINE JELLY 2% 6 ML SYRINGE MM PRN (21:45)
[2021-02-01] MEDS ORDERED: fentaNYL INJ 100 MCG/2 ML AMP IVP ONE (21:45)
[2021-02-01] MEDS ORDERED: MIDAZOLAM 5 MG/5 ML (VERSED) VIAL IV ONE (21:45)
[2021-02-01] MEDS ORDERED: NS IV 500 ML 500 ML IV PRN (21:45)
--- NOTE | 2021-02-01 23:03 | OPERATIVE REPORT ---
DATE OF SERVICE: 02/01/2021 ATTENDING PRIMARY CARE PHYSICIAN: Dr. Eddy Max. PREOPERATIVE DIAGNOSIS: Symptomatic esophageal foreign body. POSTOPERATIVE DIAGNOSES: Symptomatic esophageal foreign body, reflux esophagitis stage II with a distal esophageal stricture, moderate size hiatal hernia 3 cm in size, mild to moderate gastritis. PROCEDURE: EGD, removal of foreign body, biopsy and balloon dilatation. SURGEON: Stephany Aly MD. ANESTHESIA: Conscious sedation. ESTIMATED BLOOD LOSS: Minimal. FINDINGS: Symptomatic esophageal foreign body, reflux esophagitis stage II with a distal esophageal stricture, moderate size hiatal hernia 3 cm in size, mild to moderate gastritis. DISPOSITION: The patient tolerated the procedure well. INDICATIONS: The patient is an 85-year-old female known to us. We had seen her in 2019 and she underwent a colonoscopy and was found to have a colonic lesion on the right side and this was biopsied and found to be an adenocarcinoma. In 01/2019, she then underwent a laparoscopic right hemicolectomy. This was a T3 tumor with all nodes negative. Followup colonoscopies have been negative. She reports that she accidentally took an Imodium pill that was still within its plastic blister capsule and felt the foreign body get lodged in the upper part of the esophagus. She is able to swallow saliva however, this is irritating and at times causes a mild shortness of breath. She is not experiencing any hematemesis, nor coffee ground emesis. DESCRIPTION OF PROCEDURE: The patient was brought to the endoscopy suite, laid in the left lateral decubitus position with head slightly elevated. After adequate IV pain and sedative medications and conscious sedation anesthesia, the mouthpiece was applied. The endoscope was placed in the mouth, visualizing the pharynx and hypopharyngeal region. Vocal cords, epiglottis and vallecula identified and appeared to be normal. The endoscope was then gently intubated, the esophageal opening and esophagus insufflated. The foreign body was identified. Multiple attempts using a Porter Net as well as a biopsy forceps were used; however, we were unable to remove the esophageal foreign body. At this point, the foreign body was easily pushed down into the stomach for greater maneuverability. Again, multiple times using forceps as well as a Porter Net were used; however, unable to get the foreign body well enough grasped to pull out of the esophagus. We then used a wire snare, which did not give us enough leverage and power to remove the foreign body intact with visualization of good hemostasis. The endoscope was then placed back into the esophagus and advanced to the first, second and third portions of esophagus at the level of GE junction, a reflux esophagitis stage II and a distal esophageal stricture identified. A biopsy was taken with forceps with visualization of good hemostasis. The endoscope was then advanced in the stomach and endoscope retroflexed, visualizing a moderate size hiatal hernia approximately 3 cm in size. There was a mild to moderate gastritis. No formal ulcerations, polyps, or any neoplasms. A biopsy was taken of the antrum to rule out H. pylori with visualization of good hemostasis. The endoscope was then advanced through the pylorus and the first and second portion of the duodenum, which appeared normal with no distal obstructions. The balloon was then placed into the stomach and pulled back to the area of the stricture. We then proceeded in a stepwise fashion from 2,4 then 6 atmospheres of pressure with moderate resistance or 20 millimeters in luminal diameter. The balloon was then left in place for 60 seconds. The balloon was then desufflated and removed through the endoscope. The endoscope was then slowly withdrawn while taking a second look and suctioning of residual air with no additional findings. The patient tolerated the procedure well. We will start her on Protonix 40 mg daily; however, she will need to follow the necessary lifestyle and dietary accommodations including small and more frequent meals, avoidance of eating at night as well as head elevation while lying supine. She also needs to avoid caffeinated beverages, spicy, greasy and acidic foods. If she does have symptoms of recurrent dysphagia, we will have her follow up for a repeat balloon dilatation. Job ID: [id number] DocumentID: [id number] Dictated Date: 02/01/2021 20:51:54 Chicken Hanger Date: 02/01/2021 23:02:46 Dictated By: STEPHANY ALY MD [facility] CENTERSuleiman
== END 2021-02-01 22:33 ==
LOC: EDUNIT# 15:40 → ER 15:41 → ENDO 18:39 → ER 22:33
PROVIDERS: ATTEND Surgery
DX: T18.108A Unspecified foreign body in esophagus causing other injury, initial encounter (principal); K21.00 Gastro-esophageal reflux disease with esophagitis, without bleeding; K22.2 Esophageal obstruction; K44.9 Diaphragmatic hernia without obstruction or gangrene; K29.70 Gastritis, unspecified, without bleeding; Z98.890 Other specified postprocedural states; Z90.49 Acquired absence of other specified parts of digestive tract; Z85.038 Personal history of other malignant neoplasm of large intestine; I48.91 Unspecified atrial fibrillation; I10 Essential (primary) hypertension; K57.30 Diverticulosis of large intestine without perforation or abscess without bleeding; M19.90 Unspecified osteoarthritis, unspecified site; J45.909 Unspecified asthma, uncomplicated; Z79.899 Other long term (current) drug therapy
CPT/HCPCS: 70490; 71045; 71250; 74018

== ENCOUNTER → 2021-03-10 | Outpatient (CLI) | payer MEDICARE ==
[~2021-03-10] MED LIST changes: +PANT40TA2 PO
--- NOTE | 2021-03-10 10:30 | Diagnostic Imaging Report ---
INDICATION: Routine screening. COMPARISON: 03/04/2020 and 02/27/2019. TECHNIQUE: 2D and 3D bilateral screening mammography was performed with CAD. FINDINGS: Both breasts are heterogeneously dense, limiting the sensitivity of mammography. A biopsy clip in the outer left breast is again noted. The nodule in the outer left breast is stable. No new mass or malignant-appearing microcalcifications are seen. There are benign calcifications bilaterally. A cardiac loop recorder overlies the left breast. The axillae are unremarkable. IMPRESSION: No mammographic features suspicious for malignancy are identified. ACR BI-RADS Category 2: Benign findings. Result letter will be mailed to the patient. Note: At least 10% of breast cancer is not imaged by mammography. Dictated by: Dictated on workstation # [id number]
== END ==
LOC: RAD 09:00
PROVIDERS: ATTEND Internal Medicine
DX: Z12.31 Encounter for screening mammogram for malignant neoplasm of breast (principal)
CPT/HCPCS: 77063; 77067

== ENCOUNTER 2021-05-20 10:18 | Emergency (ER) | payer MEDICARE ==
[~2021-05-20] VITALS: Ht 157 cm; Wt 77.0 kg
--- NOTE | 2021-05-20 10:47 | ED Fall/Injury ---
General Chief Complaint: Trauma-Non Activation Stated Complaint: FALL - HEAD LAC Nursing Triage Note: ARRIVED VIA AMB TO ROOM 08 AFTER FALLING IN [employer] [place] AFTER TRIPPING IN A HOLE WITH HER CART. ABRASION NOTED TO LEFT HEAD. PT DENIES LOC. DENIES NECK, CHEST, ABD PAIN. PT IS ON A BLOOD THINNER. Source: patient Exam Limitations: no limitations (FLORIDALMA VO STUDENT) History of Present Illness Date Seen by Provider: May 20, 2021 Time Seen by Provider: 10:30 Initial Comments This is an 85 YO female on Xarelto presenting to the ED s/p fall this morning. She says she was at the [employer] parking lot when the cart hit a divet in the ground and tipped over, taking her with it. Pt hit the back of her head but did not lose consciousness. Denies neck pain or any other injuries. No prodromal symptoms such as lightheadedness or palpitations. Went to her PCP's office for evaluation and was told to come to the ED. Declines pain medications at this time. Unsure of tetanus status but believes it was in the past 5 years. Occurred: this morning Injuries/Pain Location: head Context: tripped Loss of Consciousness: no loss of consciousness Associated Symptoms (Fall): Denies Symptoms (FLORIDALMA VO STUDENT) Initial Comments Patient was referred to the ER by her primary care provider, BRADY Romero because of anticoagulant use. Report was received from [facility] by phone. (KELLY LEVINE MD) Allergies and Home Medications Allergies Coded Allergies: Penicillins (Unverified Allergy, Mild, 02/02/19) iodine (Unverified Allergy, Mild, 02/02/19) Sulfa (Sulfonamide Antibiotics) (Verified Allergy, Unknown, 02/02/19) sulfamethoxazole (Verified Allergy, Unknown, 02/02/19) trimethoprim (Verified Allergy, Unknown, 02/02/19) Patient Home Medication List Home Medication List Reviewed: Yes (KELLY LEVINE MD) Acetaminophen (Tylenol Extra Strength) 500 Mg Tablet, 500 MG PO BID, (Reported) Entered as Reported by: DORIS PAREDES on 10/26/16 0946 Amlodipine Besylate (Amlodipine Besylate) 10 Mg Tablet, 10 MG PO DAILY, (Reported) Entered as Reported by: ILANA COTTER on 01/06/21 1225 Ascorbic Acid (Vitamin C) 500 Mg Capsule.er, 500 MG PO DAILY, (Reported) Entered as Reported by: ILANA COTTER on 01/06/21 1225 Calcium Carbonate/Vitamin D3 (Calcium 500 + Vit D Caplet) 1 Each Tablet, 1 TAB PO DAILY, (Reported) Entered as Reported by: DORIS PAREDES on 10/26/16 0946 Cyanocobalamin (Vitamin B-12) (Vitamin B12) 5,000 Mcg Tab.rapdis, 5,000 MCG PO DAILY, (Reported) Entered as Reported by: ILANA COTTER on 01/06/21 1225 Metoprolol Succinate (Metoprolol Succinate) 100 Mg Tab.er.24h, 100 MG PO DAILY, (Reported) Entered as Reported by: DORIS PAREDES on 10/26/16 0946 Montelukast Sodium (Montelukast Sodium) 10 Mg Tablet, 10 MG PO HS, (Reported) Entered as Reported by: DELORES JUNG on 12/05/14 1336 Multivitamin (Multi-Vitamin Daily) 1 Each Tablet, 1 EACH PO DAILY, (Reported) Entered as Reported by: JAYMIE MEYER on 01/25/19 1117 [place] 3 Polyunsat Fatty Acids (Fish Oil 1,000 mg Capsule) 1,000 Mg Cap, 1,000 MG PO DAILY, (Reported) Entered as Reported by: ILANA COTTER on 01/06/21 1225 Pantoprazole Sodium (Protonix) 40 Mg Tablet.dr, 40 MG PO DAILY Prescribed by: STEPHANY ALY on 02/01/212037 Rivaroxaban (Xarelto) 10 Mg Tablet, 10 MG PO DAILY, (Reported) Entered as Reported by: ILANA COTTER on 01/06/21 1225 Review of Systems Review of Systems Constitutional: No chills, No fever Eyes: Denies Blurred Vision, Denies Vision Changes Ears, Nose, Mouth, Throat: denies nose discharge, denies epistaxis Respiratory: No cough, No short of breath Cardiovascular: No chest pain, No palpitations Gastrointestinal: No abdominal pain, No nausea, No vomiting Genitourinary: No discharge, No dysuria Musculoskeletal: No back pain, No neck pain Skin: No pruritus, No rash (FLORIDALMA VO MED STUDENT) Past Ysrtlkk-Auypmu-Puqrkw Hx Immunizations Up To Date Tetanus Booster (TDap): Unknown PED Vaccines UTD: No First/Initial COVID19 Vaccinat: MAY 2020 Second COVID19 Vaccination Freddy: MAY 2020 Third COVID19 Vaccination Date: MAY 2020 (FLORIDALMA VO MED STUDENT) Seasonal Allergies Seasonal Allergies: Yes (FLORIDALMA VO) Past Medical History Surgery/Hospitalization HX: PMH: AFIB, DIVERTICULITIS, LINK/LOOP RECORDER, ASTHMA, COLON CA, HEMROIDS, HERNIA Surgeries: Yes (cataracts removed, COLON RESECTION, FOOT SX, LOOP MONITOR) Eye Surgery, Gallbladder Respiratory: Yes Asthma Currently Using CPAP: No Currently Using BIPAP: No Cardiac: Yes Atrial Fibrillation, Hypertension Neurological: No Reproductive Disorders: No Sexually Transmitted Disease: No HIV/AIDS: No Genitourinary: Yes (dribbling) Gastrointestinal: Yes ( colon ca, ) Diverticulosis, Chronic Diarrhea Musculoskeletal: Yes Arthritis Endocrine: No HEENT: Yes (GLASSES) Cataract Loss of Vision: Denies Hearing Impairment: Deaf Cancer: Yes Colon Did You Recieve Any Treatments: Yes What Type of Treatment Did You: Surgical Intervention Psychosocial: No Integumentary: No Recent Skin Changes Blood Disorders: Yes (anemia ) Adverse Reaction/Blood Tranf: No (HAS HAD BLOOD WITH NO REACTION) (FLORIDALMA VO STUDENT) Family Medical History Cancer around heart 19 FATHER Cardiovascular disease 19 MOTHER Congenital heart disease 19 MOTHER Hypertension 19 MOTHER Respiratory disorder 19 FATHER (lung cancer) No Pertinent Family Hx (FLORIDALMA VO STUDENT) Physical Exam Vital Signs Vital Signs - First Documented 05/20/21 10:25 Temp 36.8 Pulse 73 Resp 16 B/P (MAP) 178/78 (111) Pulse Ox 96 O2 Delivery Room Air (KELLY LEVINE MD) Vital Signs Capillary Refill : Less Than 3 Seconds (FLORIDALMA VO MED STUDENT) Height, Weight, BMI Height: 5'2.00" Weight: 180lbs. 0.0oz. 81.218320gt; 31.00 BMI Method:Stated General Appearance: WD/WN, no apparent distress HEENT: PERRL/EOMI; No scleral icterus (R), No scleral icterus (L); other (1 cm laceration to left posterior scalp with surrounding dried blood but no active bleeding; no Ye's sign or Raccoon eyes) Neck: non-tender, full range of motion, supple, normal inspection Cardiovascular: regular rate, rhythm, no murmur Respiratory: lungs clear, normal breath sounds, no respiratory distress, no accessory muscle use Gastrointestinal: non tender, soft; No distended Extremities: normal range of motion, normal inspection, other (ambulates throughout the department without assistance) Neurologic/Psychiatric: no motor/sensory deficits, alert, normal mood/affect, oriented x 3 Skin: normal color, warm/dry (FLORIDALMA VO MED STUDENT) Progress/Results/Core Measures Results/Orders My Orders Orders - EKLLY LEVINE MD Ct Head/Cervical Spine Wo (05/20/21 10:43) Dipht,Pertuss(Acell),Tet Adult (Boostrix (05/20/21 12:30) (KELLY LEVINE MD) Medications Given in ED Current Medications Medications Dose Ordered Sig/Marleen Route Start Time Stop Time Status Last Admin Dose Admin Diphtheria/ Tetanus/Acell Pertussis 0.5 ml ONCE ONCE IM 05/20/21 12:30 05/20/21 12:31 DC 05/20/21 12:33 0.5 ML (KELLY LEVINE MD) Vital Signs/I&O 05/20/21 05/20/21 10:25 12:37 Temp 36.8 Pulse 73 76 Resp 16 16 B/P (MAP) 178/78 (111) 162/70 Pulse Ox 96 99 O2 Delivery Room Air Room Air (KELLY LEVINE MD) Blood Pressure Mean: 111 Progress Progress Note #1: Time: 11:23 Progress Note Patient was seen and examined by me as well as MS 4 student. She is alert and oriented. She was sent to the emergency room by BRADY Romero, her primary care provider due to head injury on anticoagulation. She denies any loss of consciousness or symptoms of concussion. She has two small lacerations on the left parietal scalp that are not bleeding. We will approximated these with renee. CT of the head and cervical spine are pending. She has no complaints of pain and she has been ambulatory since the fall. She is anxious to get home and retrieve her groceries from [facility]. Progress Note #2: Progress Note CT scans demonstrated no serious injuries. The 2 lacerations on the scalp were cleaned with saline and chlorhexidine and rinsed with saline. Betadine was applied and they were stapled by Floridalma Vo, MS 4 under my supervision. The superior laceration received 2 renee in the inferior laceration received 1. Tetanus booster was administered and patient was discharged in good condition. (KELLY LEVINE MD) Diagnostic Imaging Diagonstic Imaging: CT Plain Films/CT/US/NM/MRI: c-spine, head Comments CT head and cervical spine viewed by me and report reviewed. See report below: NAME: SRUTHI SYKES MED REC#: [id number] PT STATUS: DEP ER : [id number] PHYSICIAN: KELLY LEVINE MD ADMIT DATE: 05/20/21/ER Signed Date of Exam:05/20/21 CT HEAD/CERVICAL SPINE WO PROCEDURE: CT head and CT cervical spine without contrast. TECHNIQUE: Multiple contiguous axial images were obtained through the brain and cervical spine without the use of intravenous contrast. Sagittal and coronal reformations through the cervical spine were then performed. Auto Exposure Controls were utilized during the CT exam to meet ALARA standards for radiation dose reduction. INDICATION: Fall with head and neck injury. Comparison is made with prior CT from 06/07/2018. CT HEAD: The ventricles and sulci are appropriate for the patient's age. No sulcal effacement or midline shift is identified. No acute intra-axial or extra-axial hemorrhage is detected. The cisterns are patent. The visualized paranasal sinuses are clear. IMPRESSION: No acute intracranial process is detected. CT CERVICAL SPINE: There is straightening of the normal cervical lordotic curvature. There is minimal anterolisthesis of C4 on C5, severe multilevel degenerative disc disease and degenerative facet disease is noted. Prevertebral tissues are within normal limits. Odontoid is intact. No fractures are seen. IMPRESSION: Severe cervical spondylosis. No acute bony abnormality is detected. Dictated by: Dictated on workstation # [id number] Dict: 05/20/21 1150 Trans: 05/20/21 1607 CV [id number] Interpreted by: PAULINO OTERO MD Electronically signed by: PAULINO OTERO MD 05/20/21 3696 (KELLY LVEINE MD) Departure Impression Primary Impression: Fall on same level Qualified Codes: W18.30XA - Fall on same level, unspecified, initial encounter Additional Impressions: Laceration of scalp Qualified Codes: S01.01XA - Laceration without foreign body of scalp, initial encounter Anticoagulated Disposition: HOME, SELF-CARE Condition: Improved Departure-Patient Inst. Referrals: YORDAN RODRIGUEZ MD (PCP/Family) Primary Care Physician Patient Instructions: Laceration Repair With [facility] ED, Minor Head Injury, Adult ED Add. Discharge Instructions: No severe injuries were seen on your CT scans. Keep your wounds clean and dry except for normal showering. Be careful not to d isrupt the renee when washing your hair. Return in 5 to 7 days to have the renee removed. You may do so at your convenience in the emergency room or call the clinic to make arrangements there. Monitor your wounds for signs of infection such as increasing redness, increasing swelling, puslike drainage, or fever. Return to the ER promptly if you notice any of the symptoms. Feel free to take Tylenol (acetaminophen) up to 1000 mg every 6 hours as needed for pain. Also return to the ER if you have any worsening symptoms of concussion or possible brain injury such as confusion, nausea, changes in vision, numbness or weakness of any part of the body, difficulty speaking, escalating headache, etc. Return to the ER if you have any other urgent problems or concerns. All discharge instructions reviewed with patient and/or family. Voiced understanding. Medical Student Attestation and Attending Note: I have personally interviewed and examined this patient along with Floridalma Vo, MS 4. I have reviewed student documentation including history, physical, and assessments. I agree with the documentation except where otherwise noted. Exam: General: Alert, oriented, no acute distress, well developed HEENT: Normocephalic, Two 1 cm lacerations on the left parietal scalp with no active bleeding Neck: Nontender, normal to inspection Heart: Regular rate and rhythm without murmur Lungs: Clear to auscultation bilaterally with normal effort Abdomen: Soft, nontender, nondistended, normal bowel sounds Neuropsych: Alert, oriented, no focal deficits Skin: Warm and dry without rashes, scalp laceration (KELLY LEVINE MD) Copy Copies To 1: [facility] CHRISTINE MED STUDENT May 20, 2021 10:47 KELLY LEVINE MD May 20, 2021 11:27
--- NOTE | 2021-05-20 12:00 | Diagnostic Imaging Report ---
PROCEDURE: CT head and CT cervical spine without contrast. TECHNIQUE: Multiple contiguous axial images were obtained through the brain and cervical spine without the use of intravenous contrast. Sagittal and coronal reformations through the cervical spine were then performed. Auto Exposure Controls were utilized during the CT exam to meet ALARA standards for radiation dose reduction. INDICATION: Fall with head and neck injury. Comparison is made with prior CT from 06/07/2018. CT HEAD: The ventricles and sulci are appropriate for the patient's age. No sulcal effacement or midline shift is identified. No acute intra-axial or extra-axial hemorrhage is detected. The cisterns are patent. The visualized paranasal sinuses are clear. IMPRESSION: No acute intracranial process is detected. CT CERVICAL SPINE: There is straightening of the normal cervical lordotic curvature. There is minimal anterolisthesis of C4 on C5, severe multilevel degenerative disc disease and degenerative facet disease is noted. Prevertebral tissues are within normal limits. Odontoid is intact. No fractures are seen. IMPRESSION: Severe cervical spondylosis. No acute bony abnormality is detected. Dictated by: Dictated on workstation # [id number]
[2021-05-20] MEDS ORDERED: TETANUS,DIPTH,PERTUSS P/F (BOOSTRIX) 0.5 ML VIAL IM ONE (12:30)
[2021-05-20 12:37] VITALS: BP 162/70
== END 2021-05-20 12:37 | disposition home or self-care (01) ==
LOC: EDUNIT# 10:18 → ER 10:19
DX: S01.01XA Laceration without foreign body of scalp, initial encounter (principal); Z23 Encounter for immunization; Z79.01 Long term (current) use of anticoagulants; W18.30XA Fall on same level, unspecified, initial encounter
CPT/HCPCS: 12001; 70450; 72125; 90715

== ENCOUNTER → 2021-06-02 | Outpatient (CLI) | payer MEDICARE ==
[2021-06-02 09:13] LABS: BASOPHILS % (AUTO) 0 % (0-10); EOSINOPHILS # (AUTO) 0.3 10^3/uL (0.0-0.3); EOSINOPHILS % (AUTO) 4 % (0-10); HEMATOCRIT 39 % (35-52); HEMOGLOBIN 12.4 g/dL (11.5-16.0); LYMPHOCYTES # (AUTO) 1.6 10^3/uL (1.0-4.0); LYMPHOCYTES % (AUTO) 21 % (12-44); MEAN CORPUSCULAR HEMOGLOBIN 30 pg (25-34); MEAN CORPUSCULAR HGB CONC 32 g/dL (32-36); MEAN CORPUSCULAR VOLUME 94 fL (80-99); MEAN PLATELET VOLUME 9.6 fL (9.0-12.2); MONOCYTES # (AUTO) 0.8 10^3/uL (0.0-1.0); MONOCYTES % (AUTO) 10 % (0-12); NEUTROPHILS # (AUTO) 5.1 10^3/uL (1.8-7.8); NEUTROPHILS % (AUTO) 65 % (42-75); PLATELET COUNT 210 10^3/uL (130-400); WHITE BLOOD COUNT 7.8 10^3/uL (4.3-11.0)
[2021-06-02 09:31] LABS: ALBUMIN 3.9 GM/DL (3.2-4.5); BILIRUBIN,TOTAL 0.4 MG/DL (0.1-1.0); CALCIUM 9.6 MG/DL (8.5-10.1); CREATININE SERUM 1.22 MG/DL (0.60-1.30); POTASSIUM 4.6 MMOL/L (3.6-5.0)
== END ==
LOC: ONC 09:05
PROVIDERS: ATTEND Internal Medicine Hematology & Oncology
DX: C18.9 Malignant neoplasm of colon, unspecified (principal); J45.909 Unspecified asthma, uncomplicated; I10 Essential (primary) hypertension; E66.9 Obesity, unspecified; I48.0 Paroxysmal atrial fibrillation; Z98.890 Other specified postprocedural states; Z90.49 Acquired absence of other specified parts of digestive tract
CPT/HCPCS: 80053; 82378; 85025; G0463; 36415; 99213

== ENCOUNTER → 2021-10-13 | Outpatient (CLI) | payer MEDICARE ==
--- NOTE | 2021-10-13 09:53 | Diagnostic Imaging Report ---
PROCEDURE: MR angiography of the brain without the use of contrast. TECHNIQUE: 3D [id number] non contrast enhanced MR angiography of the head was performed. A source data was reformatted into rotating MIP projections. INDICATION: Loud roaring sound in both ears, greater on the right. Head injury May 2021. COMPARISON: CT head 05/20/2021. FINDINGS: Noncontrast [id number] intracranial MRA demonstrates a widely patent basilar, intracranial vertebral, internal carotid, anterior cerebral, middle cerebral and posterior cerebral arteries. No evidence of aneurysm or dissection. Both posterior cerebral arteries are origin. IMPRESSION: No high-grade narrowing, aneurysm or dissection involving major intracranial arteries. Dictated by: Dictated on workstation # [id number]
--- NOTE | 2021-10-13 09:59 | Diagnostic Imaging Report ---
PROCEDURE: MR imaging of the brain with and without contrast. TECHNIQUE: Multiplanar, multisequence MR imaging of the brain was performed with and without contrast. INDICATION: Loud roaring sound in both ears, greatest on the right. Fall in May of 2021. Right-sided hearing loss for 20 years. COMPARISON: 05/20/2021. FINDINGS: No acute ischemia, mass, or hemorrhage. Scattered T2 hyperintense signal seen in the periventricular and subcortical white matter. The ventricles and cortical sulci are mildly prominent. The basilar cisterns are symmetric and unremarkable. The sellar and suprasellar regions have a normal appearance. The major intracranial flow voids are intact. The bilateral 7th and 8th cranial nerves have a normal appearance. No evidence of CPA mass. The bilateral internal auditory canals are symmetric and unremarkable. The inner ear structures have a normal appearance bilaterally. The bilateral Meckel's caves and cavernous sinuses are unremarkable. The brainstem and posterior fossa are unremarkable. Retained secretions are seen throughout the left sphenoid sinus. The mastoid air cells demonstrate normal signal characteristics. Bilateral lens implants are noted. The scalp and calvarium have a normal appearance. IMPRESSION: 1. No acute ischemia, mass, or hemorrhage. 2. No mass along the course of the 7th and 8th cranial nerves. No evidence of CPA mass. 3. Paranasal sinus disease involving the left sphenoid sinus. 4. Mild parenchymal volume loss with scattered chronic microvascular disease. Dictated by: Dictated on workstation # [id number]
== END ==
LOC: RAD 09:30
PROVIDERS: ATTEND Otolaryngology Otolaryngology/Facial Plastic Surgery
DX: G31.9 Degenerative disease of nervous system, unspecified (principal); J34.9 Unspecified disorder of nose and nasal sinuses; H83.3X3 Noise effects on inner ear, bilateral
CPT/HCPCS: 70544; 70551

== ENCOUNTER → 2021-11-18 | Outpatient (CLI) | payer MEDICARE | LOC: CARD 08:02 | PROVIDERS: ATTEND Nurse Practitioner Family | DX: I51.7 Cardiomegaly (principal); I34.0 Nonrheumatic mitral (valve) insufficiency | CPT/HCPCS: 93306 ==

== ENCOUNTER → 2021-12-03 | Outpatient (CLI) | payer MEDICARE ==
[2021-12-03 09:04] LABS: BASOPHILS % (AUTO) 1 % (0-10); EOSINOPHILS # (AUTO) 0.3 10^3/uL (0.0-0.3); EOSINOPHILS % (AUTO) 4 % (0-10); HEMATOCRIT 35 % (35-52); HEMOGLOBIN 11.5 g/dL (11.5-16.0); LYMPHOCYTES # (AUTO) 1.3 10^3/uL (1.0-4.0); LYMPHOCYTES % (AUTO) 16 % (12-44); MEAN CORPUSCULAR HEMOGLOBIN 32 pg (25-34); MEAN CORPUSCULAR HGB CONC 33 g/dL (32-36); MEAN CORPUSCULAR VOLUME 95 fL (80-99); MEAN PLATELET VOLUME 9.5 fL (9.0-12.2); MONOCYTES # (AUTO) 0.6 10^3/uL (0.0-1.0); MONOCYTES % (AUTO) 8 % (0-12); NEUTROPHILS % (AUTO) 73 % (42-75); PLATELET COUNT 200 10^3/uL (130-400); WHITE BLOOD COUNT 8.2 10^3/uL (4.3-11.0)
[2021-12-03 09:23] LABS: ALBUMIN 3.8 GM/DL (3.2-4.5); BILIRUBIN,TOTAL 0.5 MG/DL (0.1-1.0); CALCIUM 9.4 MG/DL (8.5-10.1); CREATININE SERUM 1.05 MG/DL (0.60-1.30); POTASSIUM 4.2 MMOL/L (3.6-5.0); TOTAL PROTEIN 6.6 GM/DL (6.4-8.2)
== END ==
LOC: ONC 08:46
PROVIDERS: ATTEND Internal Medicine Hematology & Oncology
DX: C18.9 Malignant neoplasm of colon, unspecified (principal); Z90.49 Acquired absence of other specified parts of digestive tract; J45.909 Unspecified asthma, uncomplicated; E66.9 Obesity, unspecified
CPT/HCPCS: 80053; 82378; 85025; G0463; 36415; 99213

== ENCOUNTER → 2022-03-11 | Outpatient (CLI) | payer MEDICARE ==
[~2022-03-11] MED LIST changes: +ALBU8.5H6 IH; -RT-ALBUINH IH
--- NOTE | 2022-03-11 20:35 | Diagnostic Imaging Report ---
INDICATION: Routine screening. COMPARISON: Prior mammograms from 03/10/2021 and 03/04/2020. EXAMINATION: 2D and 3D bilateral screening mammography was performed with CAD. The current study was also evaluated with a Computer Aided Detection (CAD) system. FINDINGS: Scattered fibroglandular densities are identified, bilaterally. Cardiac loop recorder overlies the medial left breast soft tissues. Benign-appearing nodule in the outer left breast is stable. There is a biopsy marker clip in the outer left breast. There are scattered benign calcifications, bilaterally. No spiculated mass or malignant-appearing microcalcifications are seen. Axillae are unremarkable. IMPRESSION: No mammographic features suspicious for malignancy are identified. ACR BI-RADS Category 2: Benign findings. Result letter will be mailed to the patient. Note: At least 10% of breast cancer is not imaged by mammography. Dictated by: Dictated on workstation # [id number]
== END ==
LOC: RAD 09:54
PROVIDERS: ATTEND Physician Assistant
DX: Z12.31 Encounter for screening mammogram for malignant neoplasm of breast (principal)
CPT/HCPCS: 77063; 77067

== ENCOUNTER → 2022-05-25 | Outpatient (CLI) | payer MEDICARE ==
[2022-05-25 09:06] LABS: HEMATOCRIT 36 % (35-52); HEMOGLOBIN 11.7 g/dL (11.5-16.0); MEAN CORPUSCULAR HEMOGLOBIN 31 pg (25-34); MEAN CORPUSCULAR HGB CONC 33 g/dL (32-36); MEAN CORPUSCULAR VOLUME 94 fL (80-99); MEAN PLATELET VOLUME 9.4 fL (9.0-12.2); PLATELET COUNT 248 10^3/uL (130-400); WHITE BLOOD COUNT 11.1 10^3/uL (4.3-11.0)
[2022-05-25 09:30] LABS: ALBUMIN 3.9 GM/DL (3.2-4.5); BILIRUBIN,TOTAL 0.5 MG/DL (0.1-1.0); CALCIUM 9.5 MG/DL (8.5-10.1); CREATININE SERUM 1.14 MG/DL (0.60-1.30); POTASSIUM 4.4 MMOL/L (3.6-5.0); TOTAL PROTEIN 6.8 GM/DL (6.4-8.2)
== END ==
LOC: ONC 10:29
PROVIDERS: ATTEND Internal Medicine Hematology & Oncology
DX: C18.9 Malignant neoplasm of colon, unspecified (principal); I10 Essential (primary) hypertension; E66.9 Obesity, unspecified
CPT/HCPCS: 36415; 80053; 82378; 85027

== ENCOUNTER → 2022-06-02 | Outpatient (CLI) | payer MEDICARE ==
[~2022-06-02] MED LIST changes: +CATHETER FLUSH 10 ML SYR IV PRN; +HOLD METFORMIN - RECEIVED CONTRAST 20 ML VIAL IV SCH; +IOHEXOL 350 MG/ML 100 ML (OMNIPAQUE 350) VIAL IV ONE; +NS 100 ML (IVPB) BAG IV ONE
--- NOTE | 2022-06-02 11:35 | Diagnostic Imaging Report ---
PROCEDURE: CT abdomen and pelvis with contrast. TECHNIQUE: Multiple contiguous axial images were obtained through the abdomen and pelvis after administration of intravenous contrast. Auto Exposure Controls were utilized during the CT exam to meet ALARA standards for radiation dose reduction. All CT scans use one or more of the following dose optimizing techniques: automated exposure control, MA and/or KvP adjustment based on patient size and exam type or iterative reconstruction. INDICATION: Malignant neoplasm of the ascending colon, surveillance exam. COMPARISON: 01/03/2021 FINDINGS: The visualized lung bases are clear. Tiny hiatal hernia. Cholecystectomy. The liver and spleen are unremarkable. The adrenal glands are unremarkable. The pancreas is unremarkable. Cortical thinning of the bilateral kidneys is again noted. Nonobstructing calculi within the inferior pole of the left kidney. No hydroureteronephrosis advanced vascular calcifications within abdominal aorta and its branch vessels without aneurysmal dilatation of the abdominal aorta. The main portal vein is patent. Small fat-containing umbilical hernia. The urinary bladder is decompressed, therefore not well evaluated. The uterus and adnexal structures are unremarkable for age. Severe colonic diverticulosis without CT evidence of acute diverticulitis. Postsurgical changes of a right hemicolectomy. No bowel obstruction or pneumatosis. No significant adenopathy, free air, or free fluid in abdomen or pelvis. Grade 1 anterolisthesis of L4 on L5 and L5 on S1, stable from the prior examination. Chronic vertebral body height loss within the thoracolumbar spine again noted. Significant multilevel degenerative changes within the thoracolumbar spine. No acute osseous abnormality. IMPRESSION: Stable chronic and postsurgical changes without acute abnormality. This includes a right hemicolectomy, extensive diverticulosis, small hiatal hernia, and degenerative changes within osseous structures. Nonobstructing left renal calculus is also seen. Dictated by: Dictated on workstation # [id number]
== END ==
LOC: RAD 09:35
PROVIDERS: ATTEND Internal Medicine Hematology & Oncology
DX: K57.90 Diverticulosis of intestine, part unspecified, without perforation or abscess without bleeding (principal); K44.9 Diaphragmatic hernia without obstruction or gangrene; N20.0 Calculus of kidney; Z98.890 Other specified postprocedural states; C18.2 Malignant neoplasm of ascending colon; Z90.49 Acquired absence of other specified parts of digestive tract
CPT/HCPCS: 74177

== ENCOUNTER 2022-06-04 09:09 | Outpatient (RCR) | payer MEDICARE ==
[~2022-06-04 09:09] MED LIST changes: -CATHETER FLUSH 10 ML SYR IV PRN; -HOLD METFORMIN - RECEIVED CONTRAST 20 ML VIAL IV SCH; -IOHEXOL 350 MG/ML 100 ML (OMNIPAQUE 350) VIAL IV ONE; -NS 100 ML (IVPB) BAG IV ONE
[2022-06-04 10:27] LABS: BASOPHILS % (AUTO) 0 % (0-10); EOSINOPHILS # (AUTO) 0.1 10^3/uL (0.0-0.3); EOSINOPHILS % (AUTO) 1 % (0-10); HEMATOCRIT 34 % (35-52); HEMOGLOBIN 11.2 g/dL (11.5-16.0); LYMPHOCYTES % (AUTO) 21 % (12-44); MEAN CORPUSCULAR HEMOGLOBIN 31 pg (25-34); MEAN CORPUSCULAR HGB CONC 33 g/dL (32-36); MEAN CORPUSCULAR VOLUME 96 fL (80-99); MEAN PLATELET VOLUME 9.6 fL (9.0-12.2); MONOCYTES # (AUTO) 0.9 10^3/uL (0.0-1.0); MONOCYTES % (AUTO) 9 % (0-12); NEUTROPHILS # (AUTO) 6.5 10^3/uL (1.8-7.8); NEUTROPHILS % (AUTO) 69 % (42-75); PLATELET COUNT 225 10^3/uL (130-400); WHITE BLOOD COUNT 9.4 10^3/uL (4.3-11.0)
== END 2022-06-05 ==
LOC: ONC 09:09
PROVIDERS: ATTEND Internal Medicine Hematology & Oncology
DX: C18.2 Malignant neoplasm of ascending colon (principal); I48.91 Unspecified atrial fibrillation; Z79.01 Long term (current) use of anticoagulants; I10 Essential (primary) hypertension; J45.909 Unspecified asthma, uncomplicated
CPT/HCPCS: 82728; 83540; 83550; 85025

== ENCOUNTER → 2022-08-26 | Outpatient (CLI) | payer MEDICARE ==
--- NOTE | 2022-08-26 11:34 | Diagnostic Imaging Report ---
History: Hypertension, atrial fibrillation, leg swelling COMPARISON: 01/11/2017 TECHNIQUE: 2 views of the chest FINDINGS: Lung volumes are normal. No consolidation is seen. There is no pleural effusion or pneumothorax. The cardiac silhouette is normal in size. There is mild left convex curvature of the thoracic spine. There are degenerative changes in the spine and shoulders with chronic right rotator cuff injury noted. Cardiac recorder device is noted. IMPRESSION: 1. No acute pulmonary abnormality. Dictated by: Dictated on workstation # [id number]
== END ==
LOC: RAD 09:44
PROVIDERS: ATTEND Internal Medicine
DX: I10 Essential (primary) hypertension (principal); I48.0 Paroxysmal atrial fibrillation; M79.89 Other specified soft tissue disorders; R05.9 Cough, unspecified
CPT/HCPCS: 71046

== ENCOUNTER 2022-08-31 08:54 | Outpatient (RCR) | payer MEDICARE ==
[2022-08-25 08:29] LABS: BASOPHILS # (AUTO) 0.1 10^3/uL (0.0-0.1); BASOPHILS % (AUTO) 1 % (0-10); EOSINOPHILS # (AUTO) 0.2 10^3/uL (0.0-0.3); EOSINOPHILS % (AUTO) 4 % (0-10); HEMATOCRIT 35 % (35-52); HEMOGLOBIN 11.3 g/dL (11.5-16.0); LYMPHOCYTES # (AUTO) 1.4 10^3/uL (1.0-4.0); LYMPHOCYTES % (AUTO) 22 % (12-44); MEAN CORPUSCULAR HEMOGLOBIN 31 pg (25-34); MEAN CORPUSCULAR HGB CONC 33 g/dL (32-36); MEAN CORPUSCULAR VOLUME 93 fL (80-99); MEAN PLATELET VOLUME 9.9 fL (9.0-12.2); MONOCYTES # (AUTO) 0.6 10^3/uL (0.0-1.0); MONOCYTES % (AUTO) 9 % (0-12); NEUTROPHILS # (AUTO) 4.2 10^3/uL (1.8-7.8); NEUTROPHILS % (AUTO) 65 % (42-75); PLATELET COUNT 187 10^3/uL (130-400); WHITE BLOOD COUNT 6.5 10^3/uL (4.3-11.0)
[2022-08-25 08:48] LABS: ALBUMIN 3.7 GM/DL (3.2-4.5); BILIRUBIN,TOTAL 0.4 MG/DL (0.1-1.0); CALCIUM 9.2 MG/DL (8.5-10.1); CREATININE SERUM 1.25 MG/DL (0.60-1.30); POTASSIUM 4.3 MMOL/L (3.6-5.0); TOTAL PROTEIN 6.3 GM/DL (6.4-8.2)
== END 2022-09-04 | disposition home or self-care (01) ==
LOC: ONC 08:54
PROVIDERS: ATTEND Internal Medicine Hematology & Oncology
DX: C18.2 Malignant neoplasm of ascending colon (principal); J45.909 Unspecified asthma, uncomplicated; E66.9 Obesity, unspecified; I10 Essential (primary) hypertension
CPT/HCPCS: 80053; 82728; 83540; 83550; 85025